=== PATIENT | female | born 1930 ===

== ENCOUNTER 2016-11-03 12:21 | Emergency (ER) | payer OTHER ==
[2016-11-03 12:34] VITALS: TEMP 98.9
[2016-11-03] MEDS ORDERED: Sodium Chloride 0.9% 1,000 ML IV ONE (13:30)
[2016-11-03] MEDS ORDERED: (Novolin R) Insulin Human Regular 100 units/ml vial IV STA (13:31)
[2016-11-03] MEDS ORDERED: (Novolin R) Insulin Human Regular 100 units/ml vial ONE (13:41)
[2016-11-03 14:10] VITALS: RESP 16; O2SAT 98
--- NOTE | 2016-11-03 14:13 | C.PDOC ---
History Of Present Illness 85 y/o female presents to ED sent by Dr. Pineda for evaluation on elevated blood sugar and complaints of Polyuria and Polydipsia. Just picked up a new glucose monitor machine earlier to day but has not used yet. Patient states being in poor compliance with her medication of 1000mg BID- taking 1000 mg QAM only, believing "a thousand" of something is too much to take twice a day. No other complaints at this time. Time Seen by Provider: 11/03/16 13:26 Chief Complaint (Nursing): High Blood Sugar History Per: Patient History/Exam Limitations: no limitations Onset/Duration Of Symptoms: Days Current Symptoms Are (Timing): Still Present Past Medical History Reviewed: Historical Data, Nursing Documentation, Vital Signs Vital Signs: Last Vital Signs Temp 98.9 F 11/03/16 12:32 Pulse 86 11/03/16 16:30 Resp 16 11/03/16 16:30 BP 156/80 H 11/03/16 16:30 Pulse Ox 98 11/03/16 16:34 - Medical History PMH: HTN Family History: States: No Known Family Hx - Social History Hx Alcohol Use: No Hx Substance Use: No - Immunization History Hx Tetanus Toxoid Vaccination: No Hx Influenza Vaccination: Yes Hx Pneumococcal Vaccination: Yes Review Of Systems Except As Marked, All Systems Reviewed And Found Negative. Constitutional: Negative for: Fever, Chills Respiratory: Negative for: Shortness of Breath Gastrointestinal: Negative for: Nausea, Vomiting, Diarrhea Genitourinary: Negative for: Dysuria Skin: Negative for: Rash Physical Exam - Physical Exam Appears: Non-toxic, No Acute Distress Skin: Dry, Other (Skin tenting) Head: Atraumatic, Normacephalic Oral Mucosa: Dry Neck: Normal ROM Cardiovascular: Rhythm Regular, No Murmur Respiratory: Normal Breath Sounds, No Rales, No Rhonchi, No Wheezing Gastrointestinal/Abdominal: Soft, No Tenderness, No Guarding, No Rebound Extremity: Normal ROM, Capillary Refill (<2 seconds) Neurological/Psych: Oriented x3, Normal Speech, Normal Motor, Normal Sensation ED Course And Treatment - Laboratory Results Result Diagrams: 11/03/16 14:06 11/03/16 14:47 Lab Interpretation: Abnormal (HGB A1C 14.4 HH) ECG: Interpreted By Me ECG Rhythm: Sinus Rhythm ECG Interpretation: Normal Rate From EC O2 Sat by Pulse Oximetry: 98 (RA) Pulse Ox Interpretation: Normal - Radiology CXR: Interpreted by Me CXR Interpretation: Yes: No Acute Disease Progress Note: tuna sandwich and insulin 70/30. Feels terrific. 1630: d/w Dr. Pineda- ok to d/c home and encouraged to take Metformin 1000 mg BID/AC and f/u in office on Monday- will call for an appt. Reevaluation Time: 16:32 Reassessment Condition: Improved Medical Decision Making Medical Decision Making: poorly controlled DM with exceedingly high HGB A1C and most surprisingly NOT in DKA- poor metformin compliance Educated and will f/u with PMD in 4 days. Disposition Doctor Will See Patient In The: Office Counseled Patient/Family Regarding: Studies Performed, Diagnosis - Disposition Referrals: Leigh Pineda MD [Staff Provider] - Disposition: HOME/ ROUTINE Disposition Time: 16:34 Condition: GOOD Additional Instructions: sarah schulz Metformina 1000 mg DOS veces al gabbie con schulz comida!! Es un dosis muy baja! Mide schulz azucar en la manana antes del desayuno y ANTES de la zurdo. Apuntalo en schulz libro y llevalo al oficina de Dr. Pineda la proxima visita. Sigue con Dra. Pineda [facility] te va llamar para hacer joey. Instructions: Diabetes Mellitus Type 2 in Adults (ED) Print Language: MALAY - Clinical Impression Clinical Impression: Hyperglycemia - Scribe Statement The provider has reviewed the documentation as recorded by the Scribe Provider Attestation: Rachel Tran All medical record entries made by the Scribe were at my direction and personally dictated by me. I have reviewed the chart and agree that the record accurately reflects my personal performance of the history, physical exam, medical decision making, and the department course for this patient. I have also personally directed, reviewed, and agree with the discharge instructions and disposition.
[2016-11-03 14:21] LABS: BASO # 0.1 K/uL (0.0-0.2); BASO % 0.8 % (0.0-2.0); EOS # 0.1 K/uL (0.0-0.7); EOS % 1.5 % (0.0-4.0); HEMATOCRIT 35.8 % (34.0-47.0); LYMPH # 1.8 K/uL (1.0-4.3); MEAN CELL VOLUME 85.9 fL (81.0-99.0); MEAN CORPUSCULAR HEMOGLOBIN 28.4 pg (27.0-31.0); MEAN CORPUSCULAR HGB CONC 33.1 g/dL (33.0-37.0); MEAN PLATELET VOLUME 8.8 fL (7.2-11.7); MONO # 0.5 K/uL (0.0-0.8); MONO % 7.3 % (0.0-10.0); RED CELL DISTRIBUTION WIDTH 14.1 % (11.5-14.5); WHITE BLOOD COUNT 7.3 K/uL (4.8-10.8)
[2016-11-03 15:01] LABS: RBC URINE < 1 /hpf (0-3); URINE BILIRUBIN NEGATIVE (NEGATIVE); URINE BLOOD NEGATIVE (NEGATIVE); URINE COLOR Yellow (YELLOW); URINE GLUCOSE (UA) 3+ mg/dL (Normal); URINE KETONE TRACE mg/dL (NEGATIVE); URINE LEUKOCYTE ESTERASE NEG Leu/uL (Negative); URINE PROTEIN NEGATIVE (NEGATIVE); URINE UROBILINOGEN NORMAL mg/dL (0.2-1.0); WBC URINE < 1 /hpf (0-5)
[2016-11-03 15:05] LABS: CHLORIDE 99 mmol/L (98-107); SODIUM 135 mmol/L (132-148)
[2016-11-03 15:07] LABS: BILIRUBIN,TOTAL 0.7 mg/dL (0.2-1.3); GFR AFRICAN-AMERICAN > 60
[2016-11-03 15:08] LABS: ALB/GLOB RATIO 0.9 (1.0-2.1); ALKALINE PHOSPHATASE 111 U/L (38-126); ALT/SGPT 18 U/L (9-52); AST/SGOT 21 U/L (14-36); BLOOD UREA NITROGEN 14 mg/dL (7-17); CARBON DIOXIDE 22 mmol/L (22-30); GLUCOSE,RANDOM 215 mg/dL (65-105); TOTAL PROTEIN 6.2 g/dL (6.3-8.3)
[2016-11-03] MEDS ORDERED: (Novolin 70/30) NPH/Regular 70/30 Units/ml 10 ml vial SC STA (15:49)
[2016-11-03] MEDS ORDERED: (Novolin 70/30) NPH/Regular 70/30 Units/ml 10 ml vial SC ONE (16:27)
[2016-11-03 16:31] VITALS: BP 156/80; PULSE 86
--- NOTE | 2016-11-03 16:50 | RAD ---
PROCEDURE: CHEST RADIOGRAPH, 1 VIEW HISTORY: SOB COMPARISON: None available. FINDINGS: LUNGS: Clear. PLEURA: No pneumothorax or pleural fluid seen. CARDIOVASCULAR: Mild cardiomegaly- left ventricular enlargement suggested. Order not calcification OSSEOUS STRUCTURES: No significant abnormalities. VISUALIZED UPPER ABDOMEN: Normal. OTHER FINDINGS: None. IMPRESSION: No acute pulmonary pathology. 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
--- NOTE | 2016-11-03 19:55 | CARD ---
APPROVED REPORT EKG Measurement Heart [id number] <Conclusion> Normal sinus rhythm Possible Anterior infarct, age undetermined Abnormal ECG
== END 2016-11-03 16:44 | disposition home or self-care (01) ==
LOC: C.ER 12:21
DX: E11.65 Type 2 diabetes mellitus with hyperglycemia (principal)
CPT/HCPCS: 71010; 80053; 81001; 82948; 83036; 83880; 84484; 85025; 87040; 93005; 96360; 96372; 99285; J7040

== ENCOUNTER 2017-05-19 11:28 | Inpatient (IN) | payer MEDICARE, OTHER ==
[2017-05-19 12:20] LABS: SQUAMOUS EPITHIAL 6 /hpf (0-5); URINE BILIRUBIN NEGATIVE (NEGATIVE); URINE BLOOD NEGATIVE (NEGATIVE); URINE CLARITY Hazy (Clear); URINE COLOR Amber (YELLOW); URINE GLUCOSE (UA) NORMAL (Normal); URINE LEUKOCYTE ESTERASE TRACE Leu/uL (Negative); URINE NITRATE NEGATIVE (NEGATIVE); URINE PROTEIN 1+ mg/dL (NEGATIVE)
[2017-05-19] MEDS ORDERED: Sodium Chloride 0.9% 1,000 ML IV ONE (12:28)
[2017-05-19] MEDS ORDERED: Iohexol 240 (50 ml) PO STA (12:28)
--- NOTE | 2017-05-19 12:35 | C.PDOC ---
History Of Present Illness 86 year old female with a past medical history of diabetes and hypertension presents to the ED complaining of intermittent left sided abdominal pain x4 weeks. The patient reports that her symptoms began after returning from a trip to [place]. She reports that the pain is exacerbated by food and she has had several episodes of non-bloody diarrhea. Patient also notes decreased urinary output. She states she has not had similar symptoms in the past and has never had a colonoscopy. Denies nausea, vomiting, vaginal bleeding/discharge, fever, chest pain. Of note: Patient reports that she went to be seen by her PMD who could not see her in the office and therefore told her to come into the ED to be evaluated. PMD: Dr. Calderón Time Seen by Provider: 05/19/17 11:50 Chief Complaint (Nursing): Abdominal Pain History Per: Patient History/Exam Limitations: no limitations Onset/Duration Of Symptoms: Other (x4 weeks) Current Symptoms Are (Timing): Still Present Radiation Of Pain To:: None Quality Of Discomfort: "Pain" Associated Symptoms: Diarrhea, Urinary Symptoms (decreased urine ouput). denies : Fever, Nausea, Vomiting, Chest Pain Past Medical History Reviewed: Historical Data, Nursing Documentation, Vital Signs Vital Signs: Last Vital Signs Temp 98.2 F 05/19/17 11:51 Pulse 84 05/19/17 11:51 Resp 18 05/19/17 11:51 BP 141/86 05/19/17 11:51 Pulse Ox 99 05/19/17 17:17 - Medical History PMH: Diabetes, HTN Surgical History: No Surg Hx Family History: States: Unknown Family Hx - Social History Hx Tobacco Use: No Hx Alcohol Use: No Hx Substance Use: No - Immunization History Hx Tetanus Toxoid Vaccination: No Hx Influenza Vaccination: Yes Hx Pneumococcal Vaccination: Yes Review Of Systems Except As Marked, All Systems Reviewed And Found Negative. Constitutional: Negative for: Fever Cardiovascular: Negative for: Chest Pain Gastrointestinal: Positive for: Abdominal Pain (left sided), Diarrhea (several episodes). Negative for: Vomiting Genitourinary: Negative for: Vaginal Discharge, Vaginal Bleeding Physical Exam - Physical Exam Appears: Non-toxic, No Acute Distress Skin: Normal Color, Warm, Dry, No Rash Head: Atraumatic, Normacephalic, No Tenderness Eye(s): bilateral: Normal Inspection, PERRL, EOMI Oral Mucosa: Moist, No Drooling Neck: Normal, Normal ROM, Supple Chest: Symmetrical, No Deformity, Tenderness Cardiovascular: Rhythm Regular, No Edema, No Murmur Respiratory: Normal Breath Sounds, No Rales, No Rhonchi, No Wheezing Gastrointestinal/Abdominal: Bowel Sounds, Soft, Tenderness (left lower quadrant) Extremity: No Tenderness, No Deformity (no deformity to b/l lower extremities), No Swelling (no swelling to b/l lower extremities), Other (trace b/l pitting edema) Neurological/Psych: Oriented x3, Normal Speech, Normal Motor ED Course And Treatment - Laboratory Results Result Diagrams: 05/19/17 12:42 05/19/17 12:42 O2 Sat by Pulse Oximetry: 99 (RA) Pulse Ox Interpretation: Normal - CT Scan/US CT - Abd & Pelvis Other Rad Studies (CT/US): Read By Radiologist, Radiology Report Reviewed CT/US Interpretation: PROCEDURE: CT Abdomen and Pelvis with contrast. HISTORY : abd pain. COMPARISON: None. TECHNIQUE: Contrast dose: 100 mL Omnipaque 350. Radiation dose: Total exam DLP = 462.30 mGy-cm. This CT exam was performed using one or more of the following dose reduction techniques: Automated exposure control, adjustment of the mA and/or kV according to patient size, and/or use of iterative reconstruction technique. FINDINGS: LOWER THORAX : Minimal bilateral pleural effusion and trace right lower lobe compressive atelectasis. Mild pericardial effusion. LIVER: Multiple hepatic masses. Largest mass in left lobe of liver measures 11.7 cm craniocaudal with extensive central necrosis. Multiple additional masses as well as areas confluent heterogeneous low-attenuation. Largest area of low attenuation in the right lobe measures 10.8 cm in greatest dimension. Likely hepatic metastases. No biliary dilatation. Smooth contour. GALLBLADDER AND BILE DUCTS: Cholelithiasis. Calcification along anti dependent wall of the gallbladder may additionally reflect adenomyosis. No mural thickening. PANCREAS: Unremarkable. No gross lesion or ductal dilatation. SPLEEN: Unremarkable. ADRENALS: Unremarkable. No mass. KIDNEYS AND URETERS: Bilateral renal cysts. Right upper pole renal cyst measures 11.4 cm in greatest dimension. Largest left renal cyst is in the upper pole, measuring 2.2 cm. No calculus or hydronephrosis. VASCULATURE: Unremarkable. No aortic aneurysm. BOWEL: There is a sigmoid colonic mass measuring 8.6 cm in greatest dimension. It is strongly suspicious for malignancy. There is mural thickening of the sigmoid colon both proximally and distal to this mass, of uncertain significance. There is extensive retained feces. There is no small bowel obstruction seen. No other abnormal bowel loops are identified. 3.3 cm vaguely ovoid fluid density structure seen cephalad to the sigmoid colon (series 3, image 127 close ) may reflect an ovarian cyst. This does not appear to arise from the bowel. Small hiatal hernia. Possible small gastric diverticulum of the herniated portion of the stomach. APPENDIX: Not identified. PERITONEUM: Unremarkable. No free fluid. No free air. LYMPH NODES: Unremarkable. No enlarged lymph nodes. BLADDER: Decompressed. REPRODUCTIVE: Status post hysterectomy. Possible midline ovarian cyst as above. BONES: No acute fracture. OTHER FINDINGS: None. 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 Bilateral renal cysts with large right upper pole renal cyst. Small bilateral pleural effusion and small pericardial effusion. Small hiatal hernia. Possible small diverticulum of the herniated stomach. Medical Decision Making Medical Decision Makin Initial Impression 86 y/o female presenting with abdominal pain Initial Plan: * CT ABD&PELV PO IV Contrast * EKG * CMP * Lipase * Troponin * CBC * Morphine 2mg IVP * Iohexol 50mL PO * Protonix 40mg IVP * NS 1000ml IV 100 mls/hr * Urinalysis * Reevaluation 1618 PROCEDURE: CT Abdomen and Pelvis with contrast FINDINGS: LOWER THORAX: Minimal bilateral pleural effusion and trace right lower lobe compressive atelectasis. Mild pericardial effusion. LIVER: Multiple hepatic masses. Largest mass in left lobe of liver measures 11.7 cm craniocaudal with extensive central necrosis. Multiple additional masses as well as areas confluent heterogeneous low-attenuation. Largest area of low attenuation in the right lobe measures 10.8 cm in greatest dimension. Likely hepatic metastases. No biliary dilatation. Smooth contour. GALLBLADDER AND BILE DUCTS: Cholelithiasis. Calcification along anti dependent wall of the gallbladder may additionally reflect adenomyosis. No mural thickening. PANCREAS: Unremarkable. No gross lesion or ductal dilatation. SPLEEN: Unremarkable. ADRENALS: Unremarkable. No mass. KIDNEYS AND URETERS: Bilateral renal cysts. Right upper pole renal cyst measures 11.4 cm in greatest dimension. Largest left renal cyst is in the upper pole, measuring 2.2 cm. No calculus or hydronephrosis. VASCULATURE: Unremarkable. No aortic aneurysm. BOWEL: There is a sigmoid colonic mass measuring 8.6 cm in greatest dimension. It is strongly suspicious for malignancy. There is mural thickening of the sigmoid colon both proximally and distal to this mass, of uncertain significance. There is extensive retained feces. There is no small bowel obstruction seen. No other abnormal bowel loops are identified. 3.3 cm vaguely ovoid fluid density structure seen cephalad to the sigmoid colon (series 3, image 127 close ) may reflect an ovarian cyst. This does not appear to arise from the bowel. Small hiatal hernia. Possible small gastric diverticulum of the herniated portion of the stomach. APPENDIX: Not identified. PERITONEUM: Unremarkable. No free fluid. No free air. LYMPH NODES: Unremarkable. No enlarged lymph nodes. BLADDER: Decompressed REPRODUCTIVE: Status post hysterectomy. Possible midline ovarian cyst as above. BONES: No acute fracture. OTHER FINDINGS: None. 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 Bilateral renal cysts with large right upper pole renal cyst. Small bilateral pleural effusion and small pericardial effusion. Small hiatal hernia. Possible small diverticulum of the herniated stomach 1716 Case discussed with hospitalist who will admit the patient to the medical surgical floor for colon mass and abdominal pain. Disposition Discussed With .: Evette Huston Counseled Patient/Family Regarding: Studies Performed, Diagnosis - Disposition Disposition: HOSPITALIZED Disposition Time: 17:22 Condition: FAIR Forms: [facility] (Burkinan) - Clinical Impression Clinical Impression: Abdominal pain, Colonic mass - Scribe Statement The provider has reviewed the documentation as recorded by the Pedro Diaz All medical record entries made by the Pedro were at my direction and personally dictated by me. I have reviewed the chart and agree that the record accurately reflects my personal performance of the history, physical exam, medical decision making, and the department course for this patient. I have also personally directed, reviewed, and agree with the discharge instructions and disposition.
[2017-05-19] MEDS ORDERED: Sodium Chloride 0.9% 1,000 ML ONE (12:47)
[2017-05-19] MEDS ORDERED: Iohexol 240 (50 ml) ONE (12:47)
[2017-05-19 12:51] LABS: BASO # 0.1 K/uL (0.0-0.2); BASO % 0.6 % (0.0-2.0); EOS % 0.2 % (0.0-4.0); LYMPH # 1.5 K/uL (1.0-4.3); LYMPH % 14.9 % (20.0-40.0); MEAN PLATELET VOLUME 7.3 fL (7.2-11.7); MONO # 0.7 K/uL (0.0-0.8); MONO % 7.2 % (0.0-10.0); NEUT # 7.7 K/uL (1.8-7.0); NEUT % 77.1 % (50.0-75.0); RBC 3.5 Mil/uL (3.80-5.20); RED CELL DISTRIBUTION WIDTH 17.1 % (11.5-14.5)
[2017-05-19 12:55] LABS: HEMOGLOBIN 9.5 g/dL (11.0-16.0); MEAN CELL VOLUME 81.9 fL (81.0-99.0)
[2017-05-19 13:07] LABS: ALBUMIN 2.9 g/dL (3.5-5.0); ALT/SGPT 19 U/L (9-52); AST/SGOT 21 U/L (14-36); BLOOD UREA NITROGEN 10 mg/dL (7-17); CALCIUM 7.6 mg/dl (8.6-10.4); GFR AFRICAN-AMERICAN > 60; GFR NON-AFRICAN AMERICAN > 60; LIPASE 20 U/L (23-300)
[2017-05-19 13:13] LABS: ALB/GLOB RATIO 0.8 (1.0-2.1)
[2017-05-19] MEDS ORDERED: Iohexol 350mg/ml 100 ML ONE (13:26)
--- NOTE | 2017-05-19 16:20 | CT ---
PROCEDURE: CT Abdomen and Pelvis with contrast HISTORY: abd pain COMPARISON: None. TECHNIQUE: Contrast dose: 100 mL Omnipaque 350 Radiation dose: Total exam DLP = 462.30 mGy-cm. This CT exam was performed using one or more of the following dose reduction techniques: Automated exposure control, adjustment of the mA and/or kV according to patient size, and/or use of iterative reconstruction technique. FINDINGS: LOWER THORAX: Minimal bilateral pleural effusion and trace right lower lobe compressive atelectasis. Mild pericardial effusion. LIVER: Multiple hepatic masses. Largest mass in left lobe of liver measures 11.7 cm craniocaudal with extensive central necrosis. Multiple additional masses as well as areas confluent heterogeneous low-attenuation. Largest area of low attenuation in the right lobe measures 10.8 cm in greatest dimension. Likely hepatic metastases. No biliary dilatation. Smooth contour. GALLBLADDER AND BILE DUCTS: Cholelithiasis. Calcification along anti dependent wall of the gallbladder may additionally reflect adenomyosis. No mural thickening. PANCREAS: Unremarkable. No gross lesion or ductal dilatation. SPLEEN: Unremarkable. ADRENALS: Unremarkable. No mass. KIDNEYS AND URETERS: Bilateral renal cysts. Right upper pole renal cyst measures 11.4 cm in greatest dimension. Largest left renal cyst is in the upper pole, measuring 2.2 cm. No calculus or hydronephrosis. VASCULATURE: Unremarkable. No aortic aneurysm. BOWEL: There is a sigmoid colonic mass measuring 8.6 cm in greatest dimension. It is strongly suspicious for malignancy. There is mural thickening of the sigmoid colon both proximally and distal to this mass, of uncertain significance. There is extensive retained feces. There is no small bowel obstruction seen. No other abnormal bowel loops are identified. 3.3 cm vaguely ovoid fluid density structure seen cephalad to the sigmoid colon (series 3, image 127 close) may reflect an ovarian cyst. This does not appear to arise from the bowel. Small hiatal hernia. Possible small gastric diverticulum of the herniated portion of the stomach. APPENDIX: Not identified. PERITONEUM: Unremarkable. No free fluid. No free air. LYMPH NODES: Unremarkable. No enlarged lymph nodes. BLADDER: Decompressed REPRODUCTIVE: Status post hysterectomy. Possible midline ovarian cyst as above. BONES: No acute fracture. OTHER FINDINGS: None. 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 Bilateral renal cysts with large right upper pole renal cyst. Small bilateral pleural effusion and small pericardial effusion. Small hiatal hernia. Possible small diverticulum of the herniated stomach.
[2017-05-19] MEDS ORDERED: Morphine 4 MG/ML VIAL IV STA (18:51)
[2017-05-19] MEDS ORDERED: Magnesium Hydroxide Susp 30 ml UD PO ONE (18:54)
--- NOTE | 2017-05-19 19:00 | CP.PCM.HP ---
History of Present Illness - History of Present Illness History of Present Illness: Patient is an 86 year old female with a PMHx of DMII, and HTN who presents with diffusely radiating, 10/10, sharp LLQ abdominal pain x 1 month. Patient states that every time she eats the pain is exacerbated and she has non-bloody diarrhea 30-40 minutes post meals. She denies any relieving factors. Patient has tried Pepto-Bismol and Immodium to relieve her symptoms without success. She admits to 30lbs weight loss in the past 7 months. She denies any fevers, chills, nausea, or vomiting. She does admit to a decrease in her urinary frequency, but denies any hematuria, dyuria, or back pain. ROS POSITIVES: Abdominal pain, NBNB Diarrhea, bloating, dec. urinary frequency NEGATIVES: Fever, chills, chest pain, SOB, nausea, vomiting, constipation, generalized weakness, LH, hematuria, dysuria, PMHx: HTN, DMII PSHx: Total Hysterectomy (30 years ago due to fibroids) Allergies: NKDA Social Hx: Denies tobacco, alcohol, or illicit drug use. Lives alone in [place]. 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 Of note, patient had sister in law who post colonoscopy from perforation. Meds: Labetelol 100 Q12H, Metformin 1000 BID PMD: Dr. Leigh Pineda Present on Admission - Present on Admission Any Indicators Present on Admission: Yes History of Uncontrolled Diabetes: Yes Review of Systems - Review of Systems Review of Systems: As per HPI Past Patient History - Past Social History Smoking Status: Never Smoked - CARDIAC Hx Hypertension: Yes - ENDOCRINE/METABOLIC Hx Diabetes Mellitus Type 2: Yes - PSYCHIATRIC Hx Substance Use: No - SURGICAL HISTORY Hx Surgeries: No - ANESTHESIA Hx Anesthesia: No Hx Anesthesia Reactions: No Meds Allergies/Adverse Reactions: Allergies Allergy/AdvReac Type Severity Reaction Status Date / Time aspirin AdvReac Verified 11/03/16 12:35 Physical Exam - Constitutional Appears: Well, Non-toxic, No Acute Distress - Head Exam Head Exam: ATRAUMATIC, NORMAL INSPECTION, NORMOCEPHALIC - Eye Exam Eye Exam: EOMI, Normal appearance. absent: Scleral icterus - ENT Exam ENT Exam: Mucous Membranes Moist - Neck Exam Neck exam: Positive for: Lymphadenopathy (Right Supraclavicular) - Respiratory Exam Respiratory Exam: Clear to Auscultation Bilateral, NORMAL BREATHING PATTERN. absent: Rales, Rhonchi, Wheezes - Cardiovascular Exam Cardiovascular Exam: RRR, +S1, +S2 - GI/Abdominal Exam GI & Abdominal Exam: Distended, Firm, Hyperactive Bowel Sounds, Tenderness (LLQ) . absent: Bruit, Guarding, Organomegaly, Rebound, Rigid - Extremities Exam Extremities exam: Positive for: pedal edema (+2 B/L) - Back Exam Back exam: absent: CVA tenderness (L), CVA tenderness (R) - Neurological Exam Neurological exam: Alert, Oriented x3 - Psychiatric Exam Psychiatric exam: Normal Affect, Normal Mood - Skin Skin Exam: Dry, Intact, Normal Color, Warm Results - Vital Signs Recent Vital Signs: Last Vital Signs Temp 99.1 F 05/19/17 18:33 Pulse 102 H 05/19/17 18:33 Resp 18 05/19/17 18:33 BP 155/83 H 05/19/17 18:33 Pulse Ox 96 05/19/17 18:33 - Labs Result Diagrams: 05/19/17 12:42 05/19/17 12:42 Labs: Laboratory Results - last 24 hr 05/19/17 05/19/17 05/19/17 12:07 12:42 12:42 WBC 10.0 RBC 3.50 L Hgb 9.5 L D Hct 28.7 L MCV 81.9 D MCH 27.0 MCHC 33.0 RDW 17.1 H Plt Count 444 H D MPV 7.3 Neut % (Auto) 77.1 H Lymph % (Auto) 14.9 L [place] % (Auto) 7.2 Eos % (Auto) 0.2 Baso % (Auto) 0.6 Neut # 7.7 H Lymph # 1.5 [place] # 0.7 Eos # 0.0 Baso # 0.1 Sodium 129 L Potassium 3.4 L Chloride 94 L Carbon Dioxide 29 Anion Gap 10 BUN 10 Creatinine 0.5 L Est GFR ( Amer) > 60 Est GFR (Non-Af Amer) > 60 Random Glucose 219 H Calcium 7.6 L Total Bilirubin 0.8 AST 21 ALT 19 Alkaline Phosphatase 144 H Troponin I < 0.0120 Total Protein 6.5 Albumin 2.9 L Globulin 3.6 Albumin/Globulin Ratio 0.8 L Lipase 20 L Urine Color [place] Urine Clarity Hazy Urine pH 5.0 Ur Specific [place] 1.028 Urine Protein 1+ H Urine Glucose (UA) Normal Urine Ketones Trace Urine Blood Negative Urine Nitrate Negative Urine Bilirubin Negative Urine Urobilinogen 2.0 H Ur Leukocyte Esterase Trace Urine WBC (Auto) 9 H Urine RBC (Auto) 2 Ur Squamous Epith Cells 6 H Hyaline Casts 3-5 H Assessment & Plan - Assessment and Plan (Free Text) Assessment: 86 year old female with a PMHx of DMII, and HTN who presents with diffusely radiating, 10/10, sharp LLQ abdominal pain x 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 Bilateral renal cysts with large right upper pole renal cyst. Small bilateral pleural effusion and small pericardial effusion. Small hiatal hernia. Possible small diverticulum of the herniated stomach Plan: Abdominal Pain: Likely 2/[address] results. --GI Consult - Dr. Foster --Heme/Onc Consult - Dr. Bright --Surgery Consult - Dr. Richard --Liquid Diet --CBC/CMP, Mg, INR, --Stool Occult Blood --CXR --Morphine 2mg IV Q6H PRN --Miralax 17gm PO QAM Hx of Diabetes: ISS Hx of HTN Labetalol 100mg Q12H Hypokalemia 3.4 on Admission - Replaced with 40meQ Proph Heparin Protonix Liquid Diet Patient seen and discussed with Attending Dillon Estrada - PGY-1 - Date & Time Date: 05/19/17 Time: 18:00
[2017-05-19] MEDS ORDERED: Potassium Chloride 20 mEq/15 ml LIQ UD PO ONE (19:28)
[2017-05-19] MEDS ORDERED: Potassium Chloride 20 mEq/15 ml LIQ UD ONE (19:37)
[2017-05-19] MEDS ORDERED: Morphine 4 MG/ML VIAL ONE (19:38)
[2017-05-19] MEDS ORDERED: Magnesium Hydroxide Susp 30 ml UD ONE (19:38)
[2017-05-19] MEDS: (Novolin R) Insulin Human Regular 100 units/ml vial SC SCH (22:05)
[2017-05-19] MEDS: Dextrose 5%/0.9% NS 1,000 ML IV SCH (22:06)
[2017-05-20 07:19] LABS: BASO # 0.1 K/uL (0.0-0.2); BASO % 0.7 % (0.0-2.0); EOS % 0.6 % (0.0-4.0); HEMOGLOBIN 8.8 g/dL (11.0-16.0); LYMPH # 1.8 K/uL (1.0-4.3); LYMPH % 20.7 % (20.0-40.0); MEAN CELL VOLUME 82.7 fL (81.0-99.0); MEAN CORPUSCULAR HEMOGLOBIN 27.8 pg (27.0-31.0); MEAN CORPUSCULAR HGB CONC 33.6 g/dL (33.0-37.0); MONO # 0.8 K/uL (0.0-0.8); MONO % 9.1 % (0.0-10.0); NEUT % 68.9 % (50.0-75.0); RBC 3.18 Mil/uL (3.80-5.20); RED CELL DISTRIBUTION WIDTH 17.3 % (11.5-14.5); WHITE BLOOD COUNT 8.8 K/uL (4.8-10.8)
[2017-05-20 07:31] LABS: INR 1.5
[2017-05-20 07:40] LABS: PROTHROMBIN TIME 17.2 SECONDS (9.7-12.2)
[2017-05-20 07:52] LABS: ALB/GLOB RATIO 0.7 (1.0-2.1); ALBUMIN 2.6 g/dL (3.5-5.0); ALT/SGPT 15 U/L (9-52); AST/SGOT 14 U/L (14-36); BLOOD UREA NITROGEN 7 mg/dL (7-17); CALCIUM 7.5 mg/dl (8.6-10.4); GFR AFRICAN-AMERICAN > 60; GFR NON-AFRICAN AMERICAN > 60; MAGNESIUM 1.5 mg/dL (1.6-2.3)
--- NOTE | 2017-05-20 08:12 | CP.PCM.PN ---
Subjective - Date & Time of Evaluation Date of Evaluation: 05/20/17 Time of Evaluation: 09:45 - Subjective Subjective: Dr. Finney Progress note: Patient seen and examined in room. She says she came the ED for pain and bloating in her stomach. She says she has been having bowel movements but they are small and only liquid. She also reports some weight loss as well. She does currently feel better since admission but is asking for somthing to eat. Objective - Vital Signs/Intake and Output Vital Signs (last 24 hours): Temp Pulse Resp BP Pulse Ox 98.4 F 88 20 125/69 94 L 05/20/17 00:00 05/20/17 00:00 05/20/17 00:00 05/20/17 00:00 05/20/17 00:00 Intake and Output: 05/20/17 05/20/17 06:59 18:59 Intake Total 900 Balance 900 - Medications Medications: Current Medications Heparin Sodium (Porcine) (Heparin) 5,000 units SC Q8 [facility] Last Admin: 05/20/17 06:34 Dose: 5,000 units Dextrose/Sodium Chloride (Dextrose 5%/0.9% Ns 1000 Ml) 1,000 mls @ 100 mls/hr IV .Q10H [facility] Last Admin: 05/19/17 22:06 Dose: 100 mls/hr Insulin Human Regular (Novolin R) 0 unit SC ACHS [facility] PRN Reason: Protocol Last Admin: 05/19/17 22:05 Dose: Not Given Labetalol HCl (Trandate) 100 mg PO Q12H [facility] Last Admin: 05/19/17 22:05 Dose: 100 mg Morphine Sulfate (Morphine) 2 mg IV Q6 PRN PRN Reason: Pain, moderate (4-7) Pantoprazole Sodium (Protonix Ec Tab) 40 mg PO DAILY [facility] Polyethylene Glycol (Miralax) 17 gm PO QAM [facility] - Labs Labs: 05/20/17 07:13 05/20/17 07:13 PT 17.2 SECONDS (9.7-12.2) H 05/20/17 07:13 INR 1.5 05/20/17 07:13 - Constitutional Appears: Non-toxic, No Acute Distress - Eye Exam Eye Exam: Normal appearance. absent: Scleral icterus - Respiratory Exam Respiratory Exam: Decreased Breath Sounds, Clear to Ausculation Bilateral. absent: Rales, Rhonchi, Wheezes - Cardiovascular Exam Cardiovascular Exam: REGULAR RHYTHM, RRR, +S1, +S2. absent: Gallop, Rubs - GI/Abdominal Exam GI & Abdominal Exam: Distended, Normal Bowel Sounds. absent: Tenderness - Extremities Exam Extremities Exam: Normal Inspection. absent: Pedal Edema - Back Exam Back Exam: NORMAL INSPECTION - Neurological Exam Neurological Exam: Alert - Psychiatric Exam Psychiatric exam: Normal Affect, Normal Mood - Skin Skin Exam: Normal Color, Warm Assessment and Plan - Assessment and Plan (Free Text) Assessment: Abdominal Pain-Sigmoid mass 05/20: Patient is a 86 year old female with a history of DM and HTN is here with a large colonic mass in the sigmoid colon and also multiple liver lesions suggestive of mets. She is scheduled for a colonoscopy on Monday, have given her MOM twice today and a flat plate x:ray also preformed. She may need more prep for colonoscopy as there is a large amount of stool in the colon as seen on CT scan, continue liquid diet. We highly suspect patient has colon cancer with mets to the liver. She will need biopsy though. Likely 2/[address] results. --GI Consult - Dr. Foster --Heme/Onc Consult - Dr. Bright --Surgery Consult - Dr. Richard --Liquid Diet --CBC/CMP, Mg, INR, --Stool Occult Blood --CXR --Morphine 2mg IV Q6H PRN --Miralax 17gm PO QAM Hx of Diabetes: ISS Hx of HTN Labetalol 100mg Q12H Hypokalemia 3.4 on Admission - Replaced with 40meQ Proph Heparin Protonix Liquid Diet Patient seen and discussed with Attending Dillon Estrada - PGY-1
[2017-05-20] MEDS: (Novolin R) Insulin Human Regular 100 units/ml vial SC SCH ×4 (08:25→21:59)
--- NOTE | 2017-05-20 08:35 | CP.PCM.CON ---
History of Present Illness - History of Present Illness History of Present Illness: Surgery 86 F w pmh of HTN, DM, hysterectomy came with LLQ abd pain and diarrhea. Pain started a few month ago and localized. Pt reports unintentional weight loss around 30 lbs in last few month. Diarrhea is non bloody. Pt never had colonoscopy done in the past. CT of abd showed large 9x4cm sigmoid mass and liver lesions multiple and largest of around 10cm. Denies F/C/N/V/Cp/SOB/ hematemesis/ melena/hematochezia/ thin stool. PMH HTN DM PSH hysterectomy appendectomy Review of Systems - Review of Systems Review of Systems: See HPI Past Patient History - Past Medical History & Family History Past Medical History?: Yes - Past Social History Smoking Status: Never Smoked - CARDIAC Hx Hypertension: Yes - ENDOCRINE/METABOLIC Hx Diabetes Mellitus Type 2: Yes - MUSCULOSKELETAL/RHEUMATOLOGICAL Hx Falls: No - PSYCHIATRIC Hx Substance Use: No - SURGICAL HISTORY Hx Surgeries: No - ANESTHESIA Hx Anesthesia: No Hx Anesthesia Reactions: No Meds Allergies/Adverse Reactions: Allergies Allergy/AdvReac Type Severity Reaction Status Date / Time aspirin AdvReac Verified 11/03/16 12:35 - Medications Medications: Current Medications Heparin Sodium (Porcine) (Heparin) 5,000 units SC Q8 [facility] Last Admin: 05/20/17 06:34 Dose: 5,000 units Dextrose/Sodium Chloride (Dextrose 5%/0.9% Ns 1000 Ml) 1,000 mls @ 100 mls/hr IV .Q10H [facility] Last Admin: 05/19/17 22:06 Dose: 100 mls/hr Magnesium Sulfate/Dextrose (Magnesium Sulfate 1 Gm/100 Ml D5w) 1 gm in 100 mls @ 100 mls/hr IVPB Q1H [facility] Stop: 05/20/17 10:59 Insulin Human Regular (Novolin R) 0 unit SC ACHS [facility] PRN Reason: Protocol Last Admin: 05/19/17 22:05 Dose: Not Given Labetalol HCl (Trandate) 100 mg PO Q12H [facility] Last Admin: 05/19/17 22:05 Dose: 100 mg Morphine Sulfate (Morphine) 2 mg IV Q6 PRN PRN Reason: Pain, moderate (4-7) Pantoprazole Sodium (Protonix Ec Tab) 40 mg PO DAILY [facility] Polyethylene Glycol (Miralax) 17 gm PO QAM [facility] Physical Exam - Constitutional Appears: No Acute Distress - Head Exam Head Exam: ATRAUMATIC, NORMAL INSPECTION, NORMOCEPHALIC - Eye Exam Eye Exam: EOMI, Normal appearance, PERRL Pupil Exam: NORMAL ACCOMODATION, PERRL - ENT Exam ENT Exam: Mucous Membranes Moist, Normal Exam - Neck Exam Neck exam: Positive for: Normal Inspection - Respiratory Exam Respiratory Exam: Clear to Auscultation Bilateral, NORMAL BREATHING PATTERN - Cardiovascular Exam Cardiovascular Exam: REGULAR RHYTHM - GI/Abdominal Exam GI & Abdominal Exam: Distended, Normal Bowel Sounds, Soft, Tenderness. absent: Firm, Guarding, Hernia, Mass, Rigid Additional comments: LLQ TTP - Rectal Exam Rectal Exam: Hemorrhoids. absent: Black Stool, Bloody Stool, Fecal Impaction Additional comments: Soft brown stool in the vault. No blood. Normal sphincter tone. mass palpable adjacent to the rectum indirectly. - Exam Exam: NORMAL INSPECTION - Extremities Exam Extremities exam: Positive for: normal inspection - Back Exam Back exam: NORMAL INSPECTION - Neurological Exam Neurological exam: Alert, CN II-XII Intact, Normal Gait, Oriented x3, Reflexes Normal - Psychiatric Exam Psychiatric exam: Normal Affect, Normal Mood - Skin Skin Exam: Dry, Intact, Normal Color, Warm Results - Vital Signs Recent Vital Signs: Last Vital Signs Temp 98.4 F 05/20/17 00:00 Pulse 88 05/20/17 00:00 Resp 20 05/20/17 00:00 BP 125/69 05/20/17 00:00 Pulse Ox 94 L 05/20/17 00:00 - Labs Result Diagrams: 05/20/17 07:13 05/20/17 07:13 Labs: Laboratory Results - last 24 hr 05/19/17 05/19/17 05/19/17 12:07 12:42 12:42 WBC 10.0 RBC 3.50 L Hgb 9.5 L D Hct 28.7 L MCV 81.9 D MCH 27.0 MCHC 33.0 RDW 17.1 H Plt Count 444 H D MPV 7.3 Neut % (Auto) 77.1 H Lymph % (Auto) 14.9 L [place] % (Auto) 7.2 Eos % (Auto) 0.2 Baso % (Auto) 0.6 Neut # 7.7 H Lymph # 1.5 [place] # 0.7 Eos # 0.0 Baso # 0.1 PT INR Sodium 129 L Potassium 3.4 L Chloride 94 L Carbon Dioxide 29 Anion Gap 10 BUN 10 Creatinine 0.5 L Est GFR ( Amer) > 60 Est GFR (Non-Af Amer) > 60 POC Glucose (mg/dL) Random Glucose 219 H Calcium 7.6 L Magnesium Total Bilirubin 0.8 AST 21 ALT 19 Alkaline Phosphatase 144 H Troponin I < 0.0120 Total Protein 6.5 Albumin 2.9 L Globulin 3.6 Albumin/Globulin Ratio 0.8 L Lipase 20 L Carcinoembryonic Ag Urine Color Olivia Urine Clarity Hazy Urine pH 5.0 Ur Specific Frakes 1.028 Urine Protein 1+ H Urine Glucose (UA) Normal Urine Ketones Trace Urine Blood Negative Urine Nitrate Negative Urine Bilirubin Negative Urine Urobilinogen 2.0 H Ur Leukocyte Esterase Trace Urine WBC (Auto) 9 H Urine RBC (Auto) 2 Ur Squamous Epith Cells 6 H Hyaline Casts 3-5 H 05/19/17 05/20/17 05/20/17 21:02 07:13 07:13 WBC 8.8 RBC 3.18 L Hgb 8.8 L Hct 26.3 L MCV 82.7 MCH 27.8 MCHC 33.6 RDW 17.3 H Plt Count 397 MPV 7.0 L Neut % (Auto) 68.9 Lymph % (Auto) 20.7 [place] % (Auto) 9.1 Eos % (Auto) 0.6 Baso % (Auto) 0.7 Neut # 6.0 Lymph # 1.8 [place] # 0.8 Eos # 0.0 Baso # 0.1 PT INR Sodium 133 Potassium 4.8 Chloride 98 Carbon Dioxide 29 Anion Gap 10 BUN 7 Creatinine 0.6 L Est GFR ( Amer) > 60 Est GFR (Non-Af Amer) > 60 POC Glucose (mg/dL) 241 H Random Glucose 247 H Calcium 7.5 L Magnesium 1.5 L Total Bilirubin 0.5 AST 14 D ALT 15 Alkaline Phosphatase 127 H Troponin I Total Protein 6.4 Albumin 2.6 L Globulin 3.8 Albumin/Globulin Ratio 0.7 L Lipase Carcinoembryonic Ag 11.6 H Urine Color Urine Clarity Urine pH Ur Specific [place] Urine Protein Urine Glucose (UA) Urine Ketones Urine Blood Urine Nitrate Urine Bilirubin Urine Urobilinogen Ur Leukocyte Esterase Urine WBC (Auto) Urine RBC (Auto) Ur Squamous Epith Cells Hyaline Casts 05/20/17 05/20/17 07:13 07:15 WBC RBC Hgb Hct MCV MCH MCHC RDW Plt Count MPV Neut % (Auto) Lymph % (Auto) [place] % (Auto) Eos % (Auto) Baso % (Auto) Neut # Lymph # [place] # Eos # Baso # PT 17.2 H INR 1.5 Sodium Potassium Chloride Carbon Dioxide Anion Gap BUN Creatinine Est GFR ( Amer) Est GFR (Non-Af Amer) POC Glucose (mg/dL) 204 H Random Glucose Calcium Magnesium Total Bilirubin AST ALT Alkaline Phosphatase Troponin I Total Protein Albumin Globulin Albumin/Globulin Ratio Lipase Carcinoembryonic Ag Urine Color Urine Clarity Urine pH Ur Specific [place] Urine Protein Urine Glucose (UA) Urine Ketones Urine Blood Urine Nitrate Urine Bilirubin Urine Urobilinogen Ur Leukocyte Esterase Urine WBC (Auto) Urine RBC (Auto) Ur Squamous Epith Cells Hyaline Casts Assessment & Plan - Assessment and Plan (Free Text) Assessment: Colon mass: no signs of obstruction -GI on board -Will need colonoscopy and biopsy prior to planning surgery -Pain control -Monitor for obstructive symptoms. -Medical management -We will continue to follow. BENNIE Richard
[2017-05-20] MEDS: Dextrose 5%/0.9% NS 1,000 ML IV SCH ×2 (08:37→18:30)
[2017-05-20] MEDS ORDERED: Phytonadione 10 mg/ml Inj (Adult) SC STA (08:51)
[2017-05-20] MEDS: Magnesium Sulfate 1 gm in D5W 1 GM/100 ML BAG IVPB SCH ×2 (09:45→09:46)
[2017-05-20] MEDS: POLYETHYLENE GLYCOL 3350 17 GM/Dose PACKET PO SCH (09:47)
[2017-05-20] MEDS: Pantoprazole 40 mg EC Tab PO SCH (10:40)
[2017-05-20] MEDS: Magnesium Hydroxide Susp 30 ml UD PO SCH ×2 (11:06→17:53)
--- NOTE | 2017-05-20 13:05 | CON ---
DATE: 05/20/2017 LOCATION: 351, bed B. Karla was called for GI consultation by the admitting medical team, orders were given yesterday by myself. The patient is seen and fully examined on 05/20/2017. The entire chart is reviewed, including but not limited to the most recent lab and radiology study results, current and the previous medication lists, current and the previous medical events, and allergy to medication list as well as all the available current and previous medical records. Case discussed with the staff at length. HISTORY OF PRESENT ILLNESS: This is an 86-year-old female who was admitted to hospital with a main complaint of left-sided abdominal pain, profuse diarrhea recently within the last 4 to 5 days with loss of appetite with less urine output recently. It has to be mentioned that the patient was advised before by Dr. Garrett Yepez at [facility] in [place] to have colonoscopy several times, as per her statement and she refused, she never had colonoscopy before. 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 PAST MEDICAL HISTORY: Including mainly, but not limited to hypertension, diabetes mellitus. The patient denied any chest pain, significant shortness of breath, chills, fever or active bleeding, but mild nausea with dyspepsia. No vomiting recently. ALLERGY TO MEDICATION: ASPIRIN. CURRENT MEDICATIONS: Medication lists were reviewed. FAMILY HISTORY: Noncontributory. SOCIAL HISTORY: Denied any recent history of cigarette smoking or alcohol intake. LABORATORY DATA: Most recent lab results done today showed drop of hemoglobin to 8.8 with hematocrit 26.3, but normal platelet count with PT of 17.2 and normal SMA-7, but low creatinine of 0.6 with increased blood glucose level to 204 with low calcium 5.7, low magnesium 1.5 with increased alkaline phosphatase 127 of with low albumin 2.6. CEA level ordered by myself with results of 11.6. The patient had also abdominal and pelvic CAT scan, report seems indicative of mainly sigmoid colon mass/lesion with extensive hepatic metastatic lesion with small bilateral pleural effusion as well as hiatus hernia with possible small diverticulum of the stomach. PHYSICAL EXAMINATION: GENERAL: An 86-year-old female appeared to be awake, alert, oriented with complaint of intermittent period of left-sided and mid epigastric abdominal pain. VITAL SIGNS: Afebrile with pulse of 90, respiratory rate 20 to 22, blood pressure 130/66. HEENT: Showed pale, dry oral mucous membrane. Nonicteric sclerae. LUNGS: Few scattered crepitation, decreased air entry at bases. HEART: Positive S1 and S2. ABDOMEN: Soft with mild generalized tenderness, mainly in the mid epigastric and left lower quadrant area. No mass or organomegaly. No rebound, tenderness, or guarding could be appreciated. RECTAL: The patient refused. EXTREMITIES: Evidence of osteoarthritis. No clubbing or cyanosis. NEUROLOGIC: No reported new neurological deficits, sensory or motor. No focal deficits reported recently. Peripheral pulses are present bilaterally. IMPRESSION: 1. Abnormal CAT scan of the abdomen and pelvis with sigmoid colon mass/lesion highly suggestive of possible cancer of the colon keeping in mind the mild elevated carcinoembryonic antigen level and possible metastatic lesion to the liver. 2. Diarrhea was most likely postobstructive syndrome secondary to above. 3. Evidence of cholelithiasis by CAT scan as reported in the official report. 4. Known history of diabetes mellitus, hypertension. 5. Anemia most likely secondary to above. SUGGESTIONS: 1. Agree with your plan. 2. The patient to be scheduled for colonoscopy after adequate preparation. 3. Surgical consultation. 4. Correct underlying coagulopathy. 5. 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 6. Oncology/Hematology consult. 7. Further recommendation to follow. Thank you for letting me participate in your patient's case management. Sp Leblanc MD
--- NOTE | 2017-05-20 14:19 | CARD ---
APPROVED REPORT EXAM: Two-dimensional and M-mode echocardiogram with Doppler and color Doppler. Other Information Quality : GoodRhythm : INDICATION PERICARDIAL EFFUSION RISK FACTORS Hypertension Hyperlipidemia Diabetes M-Mode DIMENSIONS RVDd1.79 (2.1-3.2cm)Left Atrium (MM)4.13 (2.5-4.0cm) IVSd1.20 (0.7-1.1cm)Aortic Root2.95 (2.2-3.7cm) LVDd5.11 (4.0-5.6cm)Aortic Cusp Exc.1.51 (1.5-2.0cm) PWd1.07 (0.7-1.1cm)FS (%) 33 % LVDs3.42 (2.0-3.8cm)LVEF (%)61 (>50%) Mitral Valve MV E Oqlwjcyx16.1cm/sMV A Dngdklic14.6cm/sE/A ratio0.9 TDI E/Lateral E'0.0E/Medial E'0.0 Tricuspid Valve TR Peak [id number]/sRAP [id number] Peak Gr.22mmHg [id number] LEFT VENTRICLE There is borderline concentric left ventricular hypertrophy. The left ventricular systolic function is normal. The left ventricular ejection fraction is within the normal range. There is normal LV segmental wall motion. Transmitral Doppler flow pattern is Grade I-abnormal relaxation pattern. RIGHT VENTRICLE The right ventricle is normal size. The right ventricular systolic function is normal. ATRIA The left atrium is borderline dilated. The right atrium size is normal. AORTIC VALVE The aortic valve is mildly sclerotic with normal systolic excursion. No aortic regurgitation is present. MITRAL VALVE The mitral valve is normal in structure. Mitral regurgitation is trace to mild. TRICUSPID VALVE The tricuspid valve is normal in structure. There is mild tricuspid regurgitation. Right ventricular systolic pressure is estimated at less than 30 mmHg. PULMONIC VALVE The pulmonic valve is not well visualized. GREAT VESSELS The aortic root is normal in size. There is moderate atherosclerotic plaque in the ascending aorta. The IVC is normal in size and collapses >50% with inspiration. PERICARDIAL EFFUSION There is a small pericardial effusion. No echo evidence of tamponade. <Conclusion> There is borderline concentric left ventricular hypertrophy. The left ventricular systolic function is normal. Diastolic dysfunction Grade I-abnormal relaxation pattern. Trace to mild mitral regurgitation. There is mild tricuspid regurgitation. Right ventricular systolic pressure is estimated at less than 30 mmHg. There is moderate atherosclerotic plaque in the ascending aorta. There is a small pericardial effusion. No echocardiographic evidence of tamponade.
--- NOTE | 2017-05-20 15:23 | CP.PCM.CON ---
History of Present Illness - History of Present Illness History of Present Illness: patient seen/examined. full consult to follow. Past Patient History - Past Medical History & Family History Past Medical History?: Yes - Past Social History Smoking Status: Never Smoked - CARDIAC Hx Hypertension: Yes - ENDOCRINE/METABOLIC Hx Diabetes Mellitus Type 2: Yes - MUSCULOSKELETAL/RHEUMATOLOGICAL Hx Falls: No - PSYCHIATRIC Hx Substance Use: No - SURGICAL HISTORY Hx Surgeries: No - ANESTHESIA Hx Anesthesia: No Hx Anesthesia Reactions: No Meds Allergies/Adverse Reactions: Allergies Allergy/AdvReac Type Severity Reaction Status Date / Time aspirin AdvReac Verified 11/03/16 12:35 - Medications Medications: Current Medications Heparin Sodium (Porcine) (Heparin) 5,000 units SC Q8 [facility] Last Admin: 05/20/17 14:43 Dose: 5,000 units Dextrose/Sodium Chloride (Dextrose 5%/0.9% Ns 1000 Ml) 1,000 mls @ 100 mls/hr IV .Q10H [facility] Last Admin: 05/20/17 08:37 Dose: 100 mls/hr Insulin Human Regular (Novolin R) 0 unit SC ACHS [facility] PRN Reason: Protocol Last Admin: 05/20/17 12:28 Dose: 4 unit Labetalol HCl (Trandate) 100 mg PO Q12H [facility] Last Admin: 05/20/17 09:47 Dose: 100 mg Magnesium Hydroxide (Milk Of Magnesia) 30 ml PO BID [facility] Stop: 05/21/17 10:31 Last Admin: 05/20/17 11:06 Dose: 30 ml Morphine Sulfate (Morphine) 2 mg IV Q6 PRN PRN Reason: Pain, moderate (4-7) Ondansetron HCl (Zofran Inj) 4 mg IVP Q6 [facility] Stop: 05/24/17 00:01 Pantoprazole Sodium (Protonix Ec Tab) 40 mg PO DAILY [facility] Last Admin: 05/20/17 10:40 Dose: 40 mg Polyethylene Glycol (Miralax) 17 gm PO QAM [facility] Last Admin: 05/20/17 09:47 Dose: 17 gm Results - Vital Signs Recent Vital Signs: Last Vital Signs Temp 98.0 F 05/20/17 15:00 Pulse 89 05/20/17 15:00 Resp 18 05/20/17 15:00 BP 155/85 H 05/20/17 15:00 Pulse Ox 95 05/20/17 08:59 - Labs Result Diagrams: 05/20/17 07:13 05/20/17 07:13 Labs: Laboratory Results - last 24 hr 05/19/17 05/20/17 05/20/17 21:02 07:13 07:13 WBC 8.8 RBC 3.18 L Hgb 8.8 L Hct 26.3 L MCV 82.7 MCH 27.8 MCHC 33.6 RDW 17.3 H Plt Count 397 MPV 7.0 L Neut % (Auto) 68.9 Lymph % (Auto) 20.7 [place] % (Auto) 9.1 Eos % (Auto) 0.6 Baso % (Auto) 0.7 Neut # 6.0 Lymph # 1.8 [place] # 0.8 Eos # 0.0 Baso # 0.1 PT INR Sodium 133 Potassium 4.8 Chloride 98 Carbon Dioxide 29 Anion Gap 10 BUN 7 Creatinine 0.6 L Est GFR ( Amer) > 60 Est GFR (Non-Af Amer) > 60 POC Glucose (mg/dL) 241 H Random Glucose 247 H Calcium 7.5 L Magnesium 1.5 L Total Bilirubin 0.5 AST 14 D ALT 15 Alkaline Phosphatase 127 H Total Protein 6.4 Albumin 2.6 L Globulin 3.8 Albumin/Globulin Ratio 0.7 L Carcinoembryonic Ag 11.6 H Blood Type Antibody Screen 05/20/17 05/20/17 05/20/17 07:13 07:13 07:15 WBC RBC Hgb Hct MCV MCH MCHC RDW Plt Count MPV Neut % (Auto) Lymph % (Auto) [place] % (Auto) Eos % (Auto) Baso % (Auto) Neut # Lymph # [place] # Eos # Baso # PT 17.2 H INR 1.5 Sodium Potassium Chloride Carbon Dioxide Anion Gap BUN Creatinine Est GFR ( Amer) Est GFR (Non-Af Amer) POC Glucose (mg/dL) 204 H Random Glucose Calcium Magnesium Total Bilirubin AST ALT Alkaline Phosphatase Total Protein Albumin Globulin Albumin/Globulin Ratio Carcinoembryonic Ag Blood Type O POSITIVE Antibody Screen Negative 05/20/17 11:19 WBC RBC Hgb Hct MCV MCH MCHC RDW Plt Count MPV Neut % (Auto) Lymph % (Auto) [place] % (Auto) Eos % (Auto) Baso % (Auto) Neut # Lymph # [place] # Eos # Baso # PT INR Sodium Potassium Chloride Carbon Dioxide Anion Gap BUN Creatinine Est GFR ( Amer) Est GFR (Non-Af Amer) POC Glucose (mg/dL) 301 H Random Glucose Calcium Magnesium Total Bilirubin AST ALT Alkaline Phosphatase Total Protein Albumin Globulin Albumin/Globulin Ratio Carcinoembryonic Ag Blood Type Antibody Screen
--- NOTE | 2017-05-20 15:23 | CP.PCM.CON ---
History of Present Illness - History of Present Illness History of Present Illness: i was asked to evaluate patient due to pericardial effusion. Patient is an 86 year old female with PMH HTn DM who presents with abdominal pain and distension. She was found to have a sigmoid mass. She is scheduled for colonoscopy. She was found to have a small pericardial effusion by echocardiogram. Consultation was requested. She denies chest pain or dyspnea. Review of Systems - Constitutional Constitutional: absent: As Per HPI, Anorexia, Chills, Daytime Sleepiness, Excessive Sweating, Fatigue, Fever, Frequent Falls, Headache, Increased Appetite , Lethargy, Malaise, Night Sweats, Snoring, Sleep Apnea, Weight Gain, Weight Loss, Weakness, Other - EENT Eyes: absent: As Per HPI, Blind Spots, Blurred Vision, Change in Vision, Decreased Night Vision, Diplopia, Discharge, Dry Eye, Exophthalmos, Floaters, Irritation, Itchy Eyes, Loss of Peripheral Vision, Pain, Photophobia, Requires Corrective Lenses, Sees Flashes, Spots in Vision, Tunnel Vision, Other Visual Disturbances, Loss of Vision, Other Ears: absent: As Per HPI, Decreased Hearing, Ear Discharge, Ear Pain, Tinnitus, Abnormal Hearing, Disequilibrium, Dizziness, Other Nose/Mouth/Throat: absent: As Per HPI, Epistaxis, Nasal Congestion, Nasal Discharge, Nasal Obstruction, Nasal Trauma, Nose Pain, Post Nasal Drip, Sinus Pain, Sinus Pressure, Bleeding Gums, Change in Voice, Dental Pain, Dry Mouth, Dysphagia, Halitosis, Hoarsness, Lip Swelling, Mouth Lesions, Mouth Pain, Odynophagia, Sore Throat, Throat Swelling, Tongue Swelling, Facial Pain, Neck Pain, Neck Mass, Other - Cardiovascular Cardiovascular: absent: As Per HPI, Acrocyanosis, Chest Pain, Chest Pain at Rest , Chest Pain with Activity, Claudication, Diaphoresis, Dyspnea, Dyspnea on Exertion, Edema, Irregular Heart Rhythm, Pain Radiating to Arm/Neck/Jaw, Leg Edema, Leg Ulcers, Lightheadedness, Orthopnea, Palpitations, Paroxysmal Nocturnal Dyspnea, Pedal Edema, Radiating Pain, Rapid Heart Rate, Slow Heart Rate, Syncope, Other - Respiratory Respiratory: absent: As Per HPI, Cough, Dyspnea, Hemoptysis, Dyspnea on Exertion , Wheezing, Snoring, Stridor, Pain on Inspiration, Chest Congestion, Excessive Mucous Production, Change in Mucous Color, Pain with Coughing, Other - Gastrointestinal Gastrointestinal: Abdominal Pain - Genitourinary Genitourinary: absent: As Per HPI, Change in Urinary Stream, Difficulty Urinating, Dysuria, Flank Pain, Hematuria, Pyuria, Nocturia, Urinary Incontinence, Urinary Frequency, Urinary Hesitance, Urinary Urgency, Voiding Freq/Small Amts, Freq UTI, Hx Renal/Bladder Calculi, Hx /Renal Surgery, Bladder Distension, Other - Musculoskeletal Musculoskeletal: absent: As Per HPI, Abnormal Gait, Arthralgias, Atrophy, Back Pain, Deformity, Joint Swelling, Limited Range of Motion, Loss of Height, Muscle Cramps, Muscle Weakness, Myalgias, Neck Pain, Numbness, Radiating Pain into Limb, Stiffness, Tingling, Other - Integumentary Integumentary: absent: As Per HPI, Acne, Alopecia, Bleeding Lesions, Change in Hair, Change in Nails, Change in Pigmentation, Changing Lesions, Dry Skin, Erythema, Furuncle, Hirsutism, Lesions, New Lesions, Non-Healing Lesions, Photosensitivity, Pruritus, Rash, Skin Pain, Skin Ulcer, Sores, Striae, Swelling , Unusual Bruising, Wounds, Jaundice, Other - Neurological Neurological: absent: As Per HPI, Abnormal Gait, Abnormal Hearing, Abnormal Movements, Abnormal Speech, Behavioral Changes, Burning Sensations, Confusion, Convulsions, Disequilibrium, Dizziness, Numbness, Focal Weakness, Frequent Falls , Headaches, Lack of Coordination, Loss of Vision, Memory Loss, Paresthesias, Radicular Pain, Restless Legs, Sensory Deficit, Syncope, Tingling, Tremor, Vertigo, Weakness, Other Visual Disturbances, Other - Psychiatric Psychiatric: absent: As Per HPI, Abnormal Sleep Pattern, Anhedonia, Anxiety, Auditory Hallucinations, Behavioral Changes, Change in Appetite, Change in Libido, Confusion, Depression, Difficulty Concentrating, Hallucinations, Homicidal Ideation, Hopelessness, Irritability, Memory Loss, Mood Swings, Panic Attacks, Paranoia, Suicidal Ideation, Visual Hallucinations, Tactile Hallucinations, Other - Endocrine Endocrine: absent: As Per HPI, Change in Body Appearance, Change in Libido, Cold Intolorance, Deepening of Voice, Excessive Sweating, Fatigue, Flushing, Heat Intolorance, Increase in Ring/Shoe/Hat Size, Palpitations, Polydipsia, Polyphagia, Polyuria, Other - Hematologic/Lymphatic Hematologic: absent: As Per HPI, Easy Bleeding, Easy Bruising, Lymphadenopathy, Other Past Patient History - Past Medical History & Family History Past Medical History?: Yes - Past Social History Smoking Status: Never Smoked - CARDIAC Hx Hypertension: Yes - ENDOCRINE/METABOLIC Hx Diabetes Mellitus Type 2: Yes - MUSCULOSKELETAL/RHEUMATOLOGICAL Hx Falls: No - PSYCHIATRIC Hx Substance Use: No - SURGICAL HISTORY Hx Surgeries: No - ANESTHESIA Hx Anesthesia: No Hx Anesthesia Reactions: No Meds Allergies/Adverse Reactions: Allergies Allergy/AdvReac Type Severity Reaction Status Date / Time aspirin AdvReac Verified 11/03/16 12:35 - Medications Medications: Current Medications Heparin Sodium (Porcine) (Heparin) 5,000 units SC Q8 [facility] Last Admin: 05/20/17 14:43 Dose: 5,000 units Dextrose/Sodium Chloride (Dextrose 5%/0.9% Ns 1000 Ml) 1,000 mls @ 100 mls/hr IV .Q10H [facility] Last Admin: 05/20/17 08:37 Dose: 100 mls/hr Insulin Human Regular (Novolin R) 0 unit SC ACHS [facility] PRN Reason: Protocol Last Admin: 05/20/17 12:28 Dose: 4 unit Labetalol HCl (Trandate) 100 mg PO Q12H [facility] Last Admin: 05/20/17 09:47 Dose: 100 mg Magnesium Hydroxide (Milk Of Magnesia) 30 ml PO BID [facility] Stop: 05/21/17 10:31 Last Admin: 05/20/17 11:06 Dose: 30 ml Morphine Sulfate (Morphine) 2 mg IV Q6 PRN PRN Reason: Pain, moderate (4-7) Ondansetron HCl (Zofran Inj) 4 mg IVP Q6 [facility] Stop: 05/24/17 00:01 Pantoprazole Sodium (Protonix Ec Tab) 40 mg PO DAILY [facility] Last Admin: 05/20/17 10:40 Dose: 40 mg Polyethylene Glycol (Miralax) 17 gm PO QAM [facility] Last Admin: 05/20/17 09:47 Dose: 17 gm Physical Exam - Constitutional Appears: Non-toxic - Head Exam Head Exam: NORMAL INSPECTION - Eye Exam Eye Exam: Normal appearance - ENT Exam ENT Exam: Mucous Membranes Moist - Neck Exam Neck exam: Positive for: Full Rom - Respiratory Exam Respiratory Exam: NORMAL BREATHING PATTERN - Cardiovascular Exam Cardiovascular Exam: REGULAR RHYTHM - GI/Abdominal Exam GI & Abdominal Exam: Normal Bowel Sounds - Rectal Exam Rectal Exam: Deferred - Extremities Exam Extremities exam: Positive for: full ROM. Negative for: pedal edema - Back Exam Back exam: NORMAL INSPECTION - Neurological Exam Neurological exam: Alert, Oriented x3 - Psychiatric Exam Psychiatric exam: Normal Affect - Skin Skin Exam: Normal Color Results - Vital Signs Recent Vital Signs: Last Vital Signs Temp 98.0 F 05/20/17 15:00 Pulse 89 05/20/17 15:00 Resp 18 05/20/17 15:00 BP 155/85 H 05/20/17 15:00 Pulse Ox 95 05/20/17 08:59 - Labs Result Diagrams: 05/21/17 08:04 05/21/17 08:04 Labs: Laboratory Results - last 24 hr 05/19/17 05/20/17 05/20/17 21:02 07:13 07:13 WBC 8.8 RBC 3.18 L Hgb 8.8 L Hct 26.3 L MCV 82.7 MCH 27.8 MCHC 33.6 RDW 17.3 H Plt Count 397 MPV 7.0 L Neut % (Auto) 68.9 Lymph % (Auto) 20.7 [place] % (Auto) 9.1 Eos % (Auto) 0.6 Baso % (Auto) 0.7 Neut # 6.0 Lymph # 1.8 [place] # 0.8 Eos # 0.0 Baso # 0.1 PT INR Sodium 133 Potassium 4.8 Chloride 98 Carbon Dioxide 29 Anion Gap 10 BUN 7 Creatinine 0.6 L Est GFR ( Amer) > 60 Est GFR (Non-Af Amer) > 60 POC Glucose (mg/dL) 241 H Random Glucose 247 H Calcium 7.5 L Magnesium 1.5 L Total Bilirubin 0.5 AST 14 D ALT 15 Alkaline Phosphatase 127 H Total Protein 6.4 Albumin 2.6 L Globulin 3.8 Albumin/Globulin Ratio 0.7 L Carcinoembryonic Ag 11.6 H Blood Type Antibody Screen 05/20/17 05/20/17 05/20/17 07:13 07:13 07:15 WBC RBC Hgb Hct MCV MCH MCHC RDW Plt Count MPV Neut % (Auto) Lymph % (Auto) [place] % (Auto) Eos % (Auto) Baso % (Auto) Neut # Lymph # [place] # Eos # Baso # PT 17.2 H INR 1.5 Sodium Potassium Chloride Carbon Dioxide Anion Gap BUN Creatinine Est GFR ( Amer) Est GFR (Non-Af Amer) POC Glucose (mg/dL) 204 H Random Glucose Calcium Magnesium Total Bilirubin AST ALT Alkaline Phosphatase Total Protein Albumin Globulin Albumin/Globulin Ratio Carcinoembryonic Ag Blood Type O POSITIVE Antibody Screen Negative 05/20/17 11:19 WBC RBC Hgb Hct MCV MCH MCHC RDW Plt Count MPV Neut % (Auto) Lymph % (Auto) [place] % (Auto) Eos % (Auto) Baso % (Auto) Neut # Lymph # [place] # Eos # Baso # PT INR Sodium Potassium Chloride Carbon Dioxide Anion Gap BUN Creatinine Est GFR ( Amer) Est GFR (Non-Af Amer) POC Glucose (mg/dL) 301 H Random Glucose Calcium Magnesium Total Bilirubin AST ALT Alkaline Phosphatase Total Protein Albumin Globulin Albumin/Globulin Ratio Carcinoembryonic Ag Blood Type Antibody Screen - EKG Data EKG Interpreted by: Myself EKG shows normal: Sinus rhythm Assessment & Plan (1) Pericardial effusion Assessment and Plan: The overall left ventricular function is normal. The effusion is small. There is no evidence of tamponade. medical therapy. no contraindication to the planned colonoscopy Status: Acute
--- NOTE | 2017-05-20 17:34 | CP.PCM.PN ---
Subjective - Date & Time of Evaluation Date of Evaluation: 05/20/17 Time of Evaluation: 10:00 - Subjective Subjective: Seen and examined,lying on bed comfortable Feels better today,Abdomen is less distended s/p Enema last night small amount of semi formed stools. No advance directives As per patient her Niece will make decision for her.I tried to reach her Niece/ no answer Spoke to her Niece in law who was with her at ER yesterday She has a son lives in [place].She states that spoke to her son.she asked me to not to call him Objective - Vital Signs/Intake and Output Vital Signs (last 24 hours): Temp Pulse Resp BP Pulse Ox 98.4 F 90 20 153/76 H 97 05/20/17 15:15 05/20/17 15:15 05/20/17 15:15 05/20/17 15:15 05/20/17 15:15 Intake and Output: 05/20/17 05/20/17 06:59 18:59 Intake Total 900 1625 Balance 900 1625 - Medications Medications: Current Medications Heparin Sodium (Porcine) (Heparin) 5,000 units SC Q8 [facility] Last Admin: 05/20/17 14:43 Dose: 5,000 units Dextrose/Sodium Chloride (Dextrose 5%/0.9% Ns 1000 Ml) 1,000 mls @ 100 mls/hr IV .Q10H [facility] Last Admin: 05/20/17 08:37 Dose: 100 mls/hr Insulin Human Regular (Novolin R) 0 unit SC ACHS [facility] PRN Reason: Protocol Last Admin: 05/20/17 12:28 Dose: 4 unit Labetalol HCl (Trandate) 100 mg PO Q12H [facility] Last Admin: 05/20/17 09:47 Dose: 100 mg Magnesium Hydroxide (Milk Of Magnesia) 30 ml PO BID [facility] Stop: 05/21/17 10:31 Last Admin: 05/20/17 11:06 Dose: 30 ml Morphine Sulfate (Morphine) 2 mg IV Q6 PRN PRN Reason: Pain, moderate (4-7) Ondansetron HCl (Zofran Inj) 4 mg IVP Q6 [facility] Stop: 05/24/17 00:01 Pantoprazole Sodium (Protonix Ec Tab) 40 mg PO DAILY [facility] Last Admin: 05/20/17 10:40 Dose: 40 mg Polyethylene Glycol (Miralax) 17 gm PO QAM [facility] Last Admin: 05/20/17 09:47 Dose: 17 gm - Labs Labs: 05/20/17 07:13 05/20/17 07:13 PT 17.2 SECONDS (9.7-12.2) H 05/20/17 07:13 INR 1.5 05/20/17 07:13 - Constitutional Appears: Non-toxic - Head Exam Head Exam: NORMAL INSPECTION - Eye Exam Eye Exam: Normal appearance - ENT Exam ENT Exam: Mucous Membranes Moist - Neck Exam Neck Exam: Full ROM - Respiratory Exam Respiratory Exam: Clear to Ausculation Bilateral, NORMAL BREATHING PATTERN - Cardiovascular Exam Cardiovascular Exam: REGULAR RHYTHM - GI/Abdominal Exam GI & Abdominal Exam: Distended, Soft, Normal Bowel Sounds. absent: Guarding - Extremities Exam Extremities Exam: Full ROM - Back Exam Back Exam: NORMAL INSPECTION - Neurological Exam Neurological Exam: Awake, Oriented x3 - Psychiatric Exam Psychiatric exam: Normal Mood - Skin Skin Exam: Dry Assessment and Plan - Assessment and Plan (Free Text) Assessment: 86 year old female with history of DMII, and HTN presents to ER for abdominal pain.She was c/o abd distension,weight loss and abdominal pain. She lives alone. She states that her Niece Elke will make decision for her/Has HCP?. She doesn't want to talk about the advance directives at this time.She also asked me to not to talk to her son.Un able leave message to her Niece/memory full Plan: 1. Sigmoid colon mass/Liver lesion likely mets/Weight loss and abdominal pain Possible colon malignancy with mets -CT-Abd/Pelvis on admission showed 8.6 cm sigmoid mass with extensive hepatic metastasis. Bilateral renal cysts with large right upper pole renal cyst. Small bilateral pleural effusion and small pericardial effusion. Small hiatal hernia. Possible small diverticulum of the herniated stomach [facility] consult Dr Foster ,appreciated -colonoscopy and biopsy on Monday Dr Bright oncology consult Surgery consult Dr Richard-appreciated bowel prep for colonosopy/constipation. d/w DR Foster,[facility] [place] tonight,follow his prep recommendation 2.DM-Monitor sugar 3.Hypertension Continue labetolol 4.Anemia-Hemoglobin 8.8 Type and screen and transfusion 5.Pericardial effusion/cardiomegaly Echo report noted,cardiology consult appreciated 6.DVT and GI prophylasix on heparin sq and pepsid liquid diet
[2017-05-20] MEDS ORDERED: Magnesium Hydroxide Susp 30 ml UD PO ONE (20:00)
--- NOTE | 2017-05-20 20:00 | CP.PCM.CON ---
History of Present Illness - History of Present Illness History of Present Illness: 86 year old female with a history of DM, presenting with abdominal pain, found to have a sigmoid mass. The patient notes to progressive abdominal pain, associated with diarrhea and diminished appetite for about 1 month. She denies N/V and abdominal bloating. She has no fevers and chills. A CT of the abdomena and pelvis revealed the colon mass and multiple liver lesions concerning for metastasis. Past medical history: DM Past surgical history: None Family history: Denies hematologic and oncologic problems Social history: Denies tobacco, alcohol, and illicit drug use. Allergies: Aspirin Review of systems: All remaining review of systems including HEENT, cardiovascular, respiratory, gastrointestinal, genitourinary, musculoskeletal, dermatologic, neurologic, and psychiatric are negative unless mentioned in the HPI. Past Patient History - Past Medical History & Family History Past Medical History?: Yes - Past Social History Smoking Status: Never Smoked - CARDIAC Hx Hypertension: Yes - ENDOCRINE/METABOLIC Hx Diabetes Mellitus Type 2: Yes - MUSCULOSKELETAL/RHEUMATOLOGICAL Hx Falls: No - PSYCHIATRIC Hx Substance Use: No - SURGICAL HISTORY Hx Surgeries: No - ANESTHESIA Hx Anesthesia: No Hx Anesthesia Reactions: No Meds Allergies/Adverse Reactions: Allergies Allergy/AdvReac Type Severity Reaction Status Date / Time aspirin AdvReac Verified 11/03/16 12:35 - Medications Medications: Current Medications Heparin Sodium (Porcine) (Heparin) 5,000 units SC Q8 [facility] Last Admin: 05/20/17 14:43 Dose: 5,000 units Dextrose/Sodium Chloride (Dextrose 5%/0.9% Ns 1000 Ml) 1,000 mls @ 100 mls/hr IV .Q10H [facility] Last Admin: 05/20/17 08:37 Dose: 100 mls/hr Insulin Human Regular (Novolin R) 0 unit SC ACHS [facility] PRN Reason: Protocol Last Admin: 05/20/17 16:30 Dose: Not Given Labetalol HCl (Trandate) 100 mg PO Q12H [facility] Last Admin: 05/20/17 09:47 Dose: 100 mg Magnesium Hydroxide (Milk Of Magnesia) 60 ml PO ONCE ONE Stop: 05/20/17 20:01 Morphine Sulfate (Morphine) 2 mg IV Q6 PRN PRN Reason: Pain, moderate (4-7) Last Admin: 05/20/17 18:12 Dose: 2 mg Ondansetron HCl (Zofran Inj) 4 mg IVP Q6 [facility] Stop: 05/24/17 00:01 Pantoprazole Sodium (Protonix Ec Tab) 40 mg PO DAILY [facility] Last Admin: 05/20/17 10:40 Dose: 40 mg Polyethylene Glycol (Miralax) 17 gm PO QAM [facility] Last Admin: 05/20/17 09:47 Dose: 17 gm Physical Exam - Head Exam Head Exam: ATRAUMATIC - Eye Exam Eye Exam: Normal appearance - ENT Exam ENT Exam: Mucous Membranes Dry - Respiratory Exam Respiratory Exam: NORMAL BREATHING PATTERN - Cardiovascular Exam Cardiovascular Exam: +S1, +S2 - GI/Abdominal Exam GI & Abdominal Exam: Normal Bowel Sounds - Extremities Exam Extremities exam: Positive for: normal inspection - Neurological Exam Neurological exam: Oriented x3 - Psychiatric Exam Psychiatric exam: Normal Affect, Normal Mood - Skin Skin Exam: Warm Results - Vital Signs Recent Vital Signs: Last Vital Signs Temp 98.4 F 05/20/17 15:15 Pulse 90 05/20/17 15:15 Resp 20 05/20/17 15:15 BP 153/76 H 05/20/17 15:15 Pulse Ox 97 05/20/17 15:15 - Labs Result Diagrams: 05/20/17 07:13 05/20/17 07:13 Labs: Laboratory Results - last 24 hr 05/19/17 05/20/17 05/20/17 21:02 07:13 07:13 WBC 8.8 RBC 3.18 L Hgb 8.8 L Hct 26.3 L MCV 82.7 MCH 27.8 MCHC 33.6 RDW 17.3 H Plt Count 397 MPV 7.0 L Neut % (Auto) 68.9 Lymph % (Auto) 20.7 [place] % (Auto) 9.1 Eos % (Auto) 0.6 Baso % (Auto) 0.7 Neut # 6.0 Lymph # 1.8 [place] # 0.8 Eos # 0.0 Baso # 0.1 PT INR Sodium 133 Potassium 4.8 Chloride 98 Carbon Dioxide 29 Anion Gap 10 BUN 7 Creatinine 0.6 L Est GFR ( Amer) > 60 Est GFR (Non-Af Amer) > 60 POC Glucose (mg/dL) 241 H Random Glucose 247 H Calcium 7.5 L Magnesium 1.5 L Total Bilirubin 0.5 AST 14 D ALT 15 Alkaline Phosphatase 127 H Total Protein 6.4 Albumin 2.6 L Globulin 3.8 Albumin/Globulin Ratio 0.7 L Carcinoembryonic Ag 11.6 H Blood Type Antibody Screen 05/20/17 05/20/17 05/20/17 07:13 07:13 07:15 WBC RBC Hgb Hct MCV MCH MCHC RDW Plt Count MPV Neut % (Auto) Lymph % (Auto) [place] % (Auto) Eos % (Auto) Baso % (Auto) Neut # Lymph # [place] # Eos # Baso # PT 17.2 H INR 1.5 Sodium Potassium Chloride Carbon Dioxide Anion Gap BUN Creatinine Est GFR ( Amer) Est GFR (Non-Af Amer) POC Glucose (mg/dL) 204 H Random Glucose Calcium Magnesium Total Bilirubin AST ALT Alkaline Phosphatase Total Protein Albumin Globulin Albumin/Globulin Ratio Carcinoembryonic Ag Blood Type O POSITIVE Antibody Screen Negative 05/20/17 05/20/17 11:19 16:56 WBC RBC Hgb Hct MCV MCH MCHC RDW Plt Count MPV Neut % (Auto) Lymph % (Auto) [place] % (Auto) Eos % (Auto) Baso % (Auto) Neut # Lymph # [place] # Eos # Baso # PT INR Sodium Potassium Chloride Carbon Dioxide Anion Gap BUN Creatinine Est GFR ( Amer) Est GFR (Non-Af Amer) POC Glucose (mg/dL) 301 H 105 Random Glucose Calcium Magnesium Total Bilirubin AST ALT Alkaline Phosphatase Total Protein Albumin Globulin Albumin/Globulin Ratio Carcinoembryonic Ag Blood Type Antibody Screen Assessment & Plan (1) Colonic mass Assessment and Plan: concerning to colon cancer GI evaluation surgical evaluation Status: Acute (2) Liver lesion Assessment and Plan: likely metastatic disease recommend IR liver lesion biopsy Status: Acute (3) Anemia Assessment and Plan: rule out iron deficiency Status: Acute (4) Coagulopathy Assessment and Plan: likely nutritional Thank you for this interesting consult. Status: Acute
--- NOTE | 2017-05-20 20:53 | RAD ---
PROCEDURE: CHEST RADIOGRAPH, 1 VIEW HISTORY: colon mass COMPARISON: Comparison is made with 11/03/2016 FINDINGS: LUNGS: Bibasilar small opacities likely atelectasis. PLEURA: No pneumothorax or pleural fluid seen. CARDIOVASCULAR: The cardiac silhouette is enlarged. OSSEOUS STRUCTURES: No significant abnormalities. VISUALIZED UPPER ABDOMEN: Normal. OTHER FINDINGS: None. IMPRESSION: No radiographic evidence of metastasis in the lungs. Small bibasilar opacities likely atelectasis.
--- NOTE | 2017-05-20 21:53 | RAD ---
HISTORY: constipation COMPARISON: No prior. FINDINGS: BOWEL: Moderate constipation is noted. No radiographic evidence of high-grade bowel obstruction. BONES: Normal. OTHER FINDINGS: None. IMPRESSION: Moderate constipation.
[2017-05-21] MEDS: Dextrose 5%/0.9% NS 1,000 ML IV SCH ×2 (05:00→13:46)
[2017-05-21 08:11] LABS: BASO # 0.1 K/uL (0.0-0.2); BASO % 0.7 % (0.0-2.0); EOS # 0.1 K/uL (0.0-0.7); EOS % 1.3 % (0.0-4.0); HEMOGLOBIN 10.1 g/dL (11.0-16.0); LYMPH # 1.3 K/uL (1.0-4.3); LYMPH % 14.2 % (20.0-40.0); MEAN CELL VOLUME 83.8 fL (81.0-99.0); MEAN CORPUSCULAR HGB CONC 33.4 g/dL (33.0-37.0); MEAN PLATELET VOLUME 7.8 fL (7.2-11.7); MONO # 0.7 K/uL (0.0-0.8); NEUT # 7.1 K/uL (1.8-7.0); NEUT % 76.8 % (50.0-75.0); RBC 3.62 Mil/uL (3.80-5.20); RED CELL DISTRIBUTION WIDTH 16.9 % (11.5-14.5); WHITE BLOOD COUNT 9.2 K/uL (4.8-10.8)
[2017-05-21] MEDS: (Novolin R) Insulin Human Regular 100 units/ml vial SC SCH ×4 (08:27→21:25)
[2017-05-21] MEDS ORDERED: Iodixanol 320 mg/ml 150 ml Bottle IV ONE (08:27)
[2017-05-21 08:38] LABS: ALB/GLOB RATIO 0.8 (1.0-2.1); ALBUMIN 2.6 g/dL (3.5-5.0); ALT/SGPT 22 U/L (9-52); AST/SGOT 21 U/L (14-36); BLOOD UREA NITROGEN 5 mg/dL (7-17); CALCIUM 7.4 mg/dl (8.6-10.4); GFR AFRICAN-AMERICAN > 60; GFR NON-AFRICAN AMERICAN > 60; MAGNESIUM 1.7 mg/dL (1.6-2.3)
[2017-05-21] MEDS ORDERED: Phytonadione 10 mg/ml Inj (Adult) SC STA (09:25)
--- NOTE | 2017-05-21 09:57 | CT ---
PROCEDURE: CT Chest with contrast HISTORY: malignancy staging, colon mass, evaluate for metastasis COMPARISON: No prior similar study available for comparison TECHNIQUE: Contiguous axial images were obtained through the chest with intravenous contrast enhancement. Sagittal and coronal reconstructions were performed. IV contrast: 100 mL Visipaque 320 Radiation dose (DLP): 2-3.16 mGy-cm. This CT exam was performed using one or more of the following dose reduction techniques: Automated exposure control, adjustment of the mA and/or kV according to patient size, and/or use of iterative reconstruction technique. FINDINGS: LUNGS: Small opacity in noted at the lingula likely represent atelectasis. Partial atelectasis of the lower lobes due to pleural effusion. MEDIASTINUM: Unremarkable thoracic aorta. No aneurysm or dissection. The heart is mildly to moderately enlarged. Small to moderate pericardial effusion is noted. Main pulmonary artery unremarkable. No vascular congestion. No lymphadenopathy. PLEURA: Small to moderate bilateral pleural effusion larger on the right. BONES: Heterogeneous density in the osseous structure without evidence of destructive bony lesion. UPPER ABDOMEN: Large heterogeneous mass lesions in the liver are noted highly suspicious for metastasis. OTHER FINDINGS: None. IMPRESSION: No CT evidence of metastasis in the lungs. Small opacity at the lingula likely represent atelectasis. Small to moderate bilateral pleural effusions associated with partial atelectasis of the lower lobes. [id number] pericardial effusion. [id number] cardiomegaly.
[2017-05-21] MEDS: POLYETHYLENE GLYCOL 3350 17 GM/Dose PACKET PO SCH (10:16)
[2017-05-21] MEDS: Pantoprazole 40 mg EC Tab PO SCH (10:16)
[2017-05-21] MEDS ORDERED: Peg-Electrolyte Oral Soln 4L (Golytely) PO ONE (11:00)
--- NOTE | 2017-05-21 11:45 | CP.PCM.PN ---
Subjective - Date & Time of Evaluation Date of Evaluation: 05/21/17 Time of Evaluation: 07:00 - Subjective Subjective: General surgery progress note for Dr. Kenny Lemos, PGY-1 Pt S & E at bedside. Pt reports abdominal distention, ab pain improved. Denies N & V, F & C, chest pain, SOB, dizziness, bright red blood per rectum. Per nursing - pt had BM x 2 yesterday with flatus. Pt received 1 unit pRBCs without problems. Objective - Vital Signs/Intake and Output Vital Signs (last 24 hours): Temp Pulse Resp BP Pulse Ox 97.7 F 93 H 20 174/94 H 95 05/21/17 08:00 05/21/17 08:00 05/21/17 08:00 05/21/17 08:00 05/21/17 08:00 Intake and Output: 05/21/17 05/21/17 06:59 18:59 Intake Total 1825 Balance 1825 - Medications Medications: Current Medications Bisacodyl (Dulcolax) 10 mg PO ONCE ONE Stop: 05/21/17 17:01 Heparin Sodium (Porcine) (Heparin) 5,000 units SC Q8 [facility] Last Admin: 05/21/17 05:45 Dose: 5,000 units Dextrose/Sodium Chloride (Dextrose 5%/0.9% Ns 1000 Ml) 1,000 mls @ 100 mls/hr IV .Q10H [facility] Last Admin: 05/21/17 05:00 Dose: 100 mls/hr Insulin Human Regular (Novolin R) 0 unit SC ACHS [facility] PRN Reason: Protocol Last Admin: 05/21/17 08:27 Dose: 2 unit Labetalol HCl (Trandate) 100 mg PO Q12H [facility] Last Admin: 05/21/17 08:29 Dose: 100 mg Morphine Sulfate (Morphine) 2 mg IV Q6 PRN PRN Reason: Pain, moderate (4-7) Last Admin: 05/20/17 18:12 Dose: 2 mg Ondansetron HCl (Zofran Inj) 4 mg IVP Q6 [facility] Stop: 05/24/17 00:01 Pantoprazole Sodium (Protonix Ec Tab) 40 mg PO DAILY [facility] Last Admin: 05/21/17 10:16 Dose: 40 mg Polyethylene Glycol (Miralax) 17 gm PO QAM [facility] Last Admin: 05/21/17 10:16 Dose: 17 gm - Labs Labs: 05/21/17 08:04 05/21/17 08:04 PT 17.2 SECONDS (9.7-12.2) H 05/20/17 07:13 INR 1.5 05/20/17 07:13 - Constitutional Appears: Non-toxic, No Acute Distress - Head Exam Head Exam: ATRAUMATIC, NORMAL INSPECTION, NORMOCEPHALIC - Eye Exam Eye Exam: EOMI, Normal appearance - ENT Exam ENT Exam: Mucous Membranes Moist - Neck Exam Neck Exam: Full ROM, Normal Inspection - Respiratory Exam Respiratory Exam: NORMAL BREATHING PATTERN - Cardiovascular Exam Cardiovascular Exam: REGULAR RHYTHM, +S1, +S2 - GI/Abdominal Exam GI & Abdominal Exam: Distended (tympanic), Soft, Tenderness (mild, diffuse). absent: Guarding, Rigid, Rebound - Extremities Exam Extremities Exam: Normal Inspection - Neurological Exam Neurological Exam: Alert, Awake, CN II-XII Intact, Oriented x3 - Psychiatric Exam Psychiatric exam: Normal Affect, Normal Mood - Skin Skin Exam: Dry, Intact, Normal Color, Warm Assessment and Plan - Assessment and Plan (Free Text) Assessment: 86F w/un-obstructing colon mass Plan: FU GI colonoscopy tomorrow Bowel prep today pain control further surgical recs as per GI findings Will follow BENNIE attending Aminta, PGY-1
--- NOTE | 2017-05-21 14:53 | PN ---
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 No reported active bleeding. No chest pain, significant shortness of breath or palpitation. Today's lab showed hemoglobin of 10.1 with hematocrit 30.4 with low sodium 131, low BUN of 5, low creatinine of 0.6 with blood glucose level reported to be 215, then 228. Calcium still low 7.4, phosphorous low at 2.3, low albumin 2.6, low total protein 6.0. CEA level reported to be 11.6. Chest CAT scan is still pending and the most recent abdominal x-ray, yesterday, reported indicative of moderate constipation. PHYSICAL EXAMINATION: GENERAL: A 86-year-old female. VITAL SIGNS: Afebrile with pulse of 90, respiratory rate 20 to 22, blood pressure 166/90. HEENT: Showed pale, dry oral mucous membrane. Nonicteric sclerae. LUNGS: Few scattered crepitation, decreased air entry at bases. HEART: Positive S1 and S2. ABDOMEN: Soft. Bowel sounds are present with mild generalized tenderness. No mass or organomegaly. No rebound tenderness or guarding with mild distention, hypoactive bowel sounds. EXTREMITIES: Without significant clubbing, cyanosis, or edema. NEUROLOGIC: No reported neurological deficits, sensory or motor. IMPRESSION: 1. Sigmoid mass/lesion with metastatic disease to the liver. As per, radiology study results with elevated CEA indicative of possible metastatic colon cancer. 2. Diarrhea, most likely postobstructive syndrome secondary to above. 3. Abnormal CAT scan of the abdomen and pelvis. 4. Known history of hypertension and diabetes mellitus. 5. Anemia secondary to above. 6. Malnutrition with electrolyte imbalance. SUGGESTIONS: 1. Agree with your plan. 2. The patient is prepared for colonoscopy at a.m. Further evaluation to follow. Sp Leblanc MD
[2017-05-21] MEDS ORDERED: Bisacodyl 5mg EC Tab PO ONE (17:00)
--- NOTE | 2017-05-21 19:49 | CP.PCM.PN ---
Subjective - Date & Time of Evaluation Date of Evaluation: 05/21/17 Time of Evaluation: 13:00 - Subjective Subjective: Seen and examined,lying on bed comfortable Feels better .Abdomen is less distended Her Niece visited her last night As per patient her Niece will make decision for her. She has a son lives in [place].She states that spoke to her son Objective - Vital Signs/Intake and Output Vital Signs (last 24 hours): Temp Pulse Resp BP Pulse Ox 97.7 F 93 H 20 174/94 H 95 05/21/17 08:00 05/21/17 08:00 05/21/17 08:00 05/21/17 08:00 05/21/17 08:00 Intake and Output: 05/21/17 05/22/17 18:59 06:59 Intake Total 1400 Balance 1400 - Medications Medications: Current Medications Heparin Sodium (Porcine) (Heparin) 5,000 units SC Q8 [facility] Last Admin: 05/21/17 13:12 Dose: Not Given Dextrose/Sodium Chloride (Dextrose 5%/0.9% Ns 1000 Ml) 1,000 mls @ 100 mls/hr IV .Q10H [facility] Last Admin: 05/21/17 13:46 Dose: Not Given Insulin Human Regular (Novolin R) 0 unit SC ACHS [facility] PRN Reason: Protocol Last Admin: 05/21/17 12:20 Dose: 1 unit Labetalol HCl (Trandate) 100 mg PO Q12H [facility] Last Admin: 05/21/17 08:29 Dose: 100 mg Morphine Sulfate (Morphine) 2 mg IV Q6 PRN PRN Reason: Pain, moderate (4-7) Last Admin: 05/20/17 18:12 Dose: 2 mg Ondansetron HCl (Zofran Inj) 4 mg IVP Q6 [facility] Stop: 05/24/17 00:01 Last Admin: 05/21/17 17:21 Dose: 4 mg Pantoprazole Sodium (Protonix Ec Tab) 40 mg PO DAILY [facility] Last Admin: 05/21/17 10:16 Dose: 40 mg Polyethylene Glycol (Miralax) 17 gm PO QAM [facility] Last Admin: 05/21/17 10:16 Dose: 17 gm - Labs Labs: 05/21/17 08:04 05/21/17 08:04 PT 17.2 SECONDS (9.7-12.2) H 05/20/17 07:13 INR 1.5 05/20/17 07:13 - Constitutional Appears: Non-toxic - Head Exam Head Exam: NORMAL INSPECTION - Eye Exam Eye Exam: Normal appearance - ENT Exam ENT Exam: Mucous Membranes Moist - Neck Exam Neck Exam: Full ROM - Respiratory Exam Respiratory Exam: Clear to Ausculation Bilateral, NORMAL BREATHING PATTERN - Cardiovascular Exam Cardiovascular Exam: REGULAR RHYTHM - GI/Abdominal Exam GI & Abdominal Exam: Distended, Soft, Normal Bowel Sounds. absent: Tenderness - Extremities Exam Extremities Exam: Full ROM - Back Exam Back Exam: NORMAL INSPECTION - Neurological Exam Neurological Exam: Awake, Oriented x3 - Psychiatric Exam Psychiatric exam: Normal Mood - Skin Skin Exam: Dry Assessment and Plan - Assessment and Plan (Free Text) Plan: 1. Sigmoid colon mass/Liver lesion likely mets/Weight loss and abdominal pain Possible colon malignancy with mets patient feels better today/after move her bowel.She is in touch with her Niece -CT-Abd/Pelvis on admission showed 8.6 cm sigmoid mass with extensive hepatic metastasis. Bilateral renal cysts with large right upper pole renal cyst. Small bilateral pleural effusion and small pericardial effusion. Small hiatal hernia. Possible small diverticulum of the herniated stomach CEA GI consult Dr Foster ,appreciated -colonoscopy and biopsy on Monday Dr Bright oncology consult Surgery consult Dr Richard-appreciated bowel prep for colonosopy d/w DR Foster today -colonoscopy on Monday 2.DM-Monitor sugar 3.Hypertension Continue labetolol Her blood pressure is high add Vasotec 4.Anemia- s/p Transfusion 5.Pericardial effusion/cardiomegaly Echo report noted,cardiology consult appreciated 6.DVT and GI prophylasix on heparin sq and pepsid liquid diet
[2017-05-22] MEDS: Dextrose 5%/0.9% NS 1,000 ML IV SCH ×5 (00:15→21:44)
[2017-05-22] MEDS: (Novolin R) Insulin Human Regular 100 units/ml vial SC SCH ×4 (08:02→21:58)
[2017-05-22 08:05] LABS: BASO % 0.4 % (0.0-2.0); EOS # 0.1 K/uL (0.0-0.7); EOS % 0.5 % (0.0-4.0); HEMOGLOBIN 10.6 g/dL (11.0-16.0); INR 1.4; LYMPH # 1.3 K/uL (1.0-4.3); LYMPH % 12.1 % (20.0-40.0); MEAN CELL VOLUME 82.9 fL (81.0-99.0); MEAN CORPUSCULAR HEMOGLOBIN 27.2 pg (27.0-31.0); MEAN CORPUSCULAR HGB CONC 32.9 g/dL (33.0-37.0); MEAN PLATELET VOLUME 7.4 fL (7.2-11.7); MONO # 0.8 K/uL (0.0-0.8); MONO % 7.8 % (0.0-10.0); NEUT # 8.4 K/uL (1.8-7.0); NEUT % 79.2 % (50.0-75.0); NRBC % 0.1 % (0.0-2.0); PROTHROMBIN TIME 15.8 SECONDS (9.7-12.2); RBC 3.89 Mil/uL (3.80-5.20); RED CELL DISTRIBUTION WIDTH 17.3 % (11.5-14.5); WHITE BLOOD COUNT 10.6 K/uL (4.8-10.8)
[2017-05-22 08:38] LABS: ALB/GLOB RATIO 0.8 (1.0-2.1); ALBUMIN 2.8 g/dL (3.5-5.0); ALT/SGPT 21 U/L (9-52); AST/SGOT 16 U/L (14-36); BLOOD UREA NITROGEN 6 mg/dL (7-17); CALCIUM 7.3 mg/dl (8.6-10.4); GFR AFRICAN-AMERICAN > 60; GFR NON-AFRICAN AMERICAN > 60
[2017-05-22] MEDS: POLYETHYLENE GLYCOL 3350 17 GM/Dose PACKET PO SCH (09:23)
[2017-05-22] MEDS: Pantoprazole 40 mg EC Tab PO SCH (09:23)
--- NOTE | 2017-05-22 09:34 | CP.PCM.PN ---
Subjective - Date & Time of Evaluation Date of Evaluation: 05/22/17 Time of Evaluation: 07:00 - Subjective Subjective: Surgical Progress Note: Patient was seen and examined at bedside in the AM. Patient states abdominal pain has improved. Patient denies nausea, vomiting, fever, chest pain or shortness of breath. Objective - Vital Signs/Intake and Output Vital Signs (last 24 hours): Temp Pulse Resp BP Pulse Ox 98.2 F 101 H 20 162/92 H 95 05/22/17 07:53 05/22/17 07:53 05/22/17 07:53 05/22/17 07:53 05/22/17 07:53 Intake and Output: 05/22/17 05/22/17 06:59 18:59 Intake Total 830 Balance 830 - Medications Medications: Current Medications Enalapril Maleate (Vasotec) 5 mg PO DAILY [facility] Last Admin: 05/22/17 09:24 Dose: Not Given Heparin Sodium (Porcine) (Heparin) 5,000 units SC Q8 [facility] Last Admin: 05/22/17 06:00 Dose: Not Given Dextrose/Sodium Chloride (Dextrose 5%/0.9% Ns 1000 Ml) 1,000 mls @ 100 mls/hr IV .Q10H [facility] Last Admin: 05/22/17 02:30 Dose: 100 mls/hr Potassium Chloride (Potassium Chloride 20 Meq/100 Ml) 20 meq in 100 mls @ 50 mls/hr IVPB ONCE ONE Stop: 05/22/17 11:21 Insulin Human Regular (Novolin R) 0 unit SC ACHS [facility] PRN Reason: Protocol Last Admin: 05/22/17 08:02 Dose: Not Given Labetalol HCl (Trandate) 100 mg PO Q12H [facility] Last Admin: 05/22/17 09:06 Dose: 100 mg Morphine Sulfate (Morphine) 2 mg IV Q6 PRN PRN Reason: Pain, moderate (4-7) Last Admin: 05/20/17 18:12 Dose: 2 mg Ondansetron HCl (Zofran Inj) 4 mg IVP Q6 [facility] Stop: 05/24/17 00:01 Last Admin: 05/22/17 05:45 Dose: 4 mg Pantoprazole Sodium (Protonix Ec Tab) 40 mg PO DAILY [facility] Last Admin: 05/22/17 09:23 Dose: Not Given Polyethylene Glycol (M[facility]ax) [facility] [place] Last Admin: 05/22/17 09:23 Dose: Not Given - Labs Labs: 05/22/17 07:41 05/22/17 07:41 PT 15.8 SECONDS (9.7-12.2) H 05/22/17 07:41 INR 1.4 05/22/17 07:41 APTT 30 SECONDS (21-34) 05/22/17 07:41 - Constitutional Appears: No Acute Distress - Head Exam Head Exam: ATRAUMATIC, NORMAL INSPECTION - Eye Exam Eye Exam: Normal appearance - ENT Exam ENT Exam: Mucous Membranes Moist - Respiratory Exam Respiratory Exam: NORMAL BREATHING PATTERN - Cardiovascular Exam Cardiovascular Exam: +S1, +S2 - GI/Abdominal Exam GI & Abdominal Exam: Soft, Normal Bowel Sounds. absent: Firm, Guarding, Tenderness - Extremities Exam Extremities Exam: Normal Inspection - Neurological Exam Neurological Exam: Alert, Awake - Psychiatric Exam Psychiatric exam: Normal Affect, Normal Mood - Skin Skin Exam: Normal Color, Warm Assessment and Plan - Assessment and Plan (Free Text) Assessment: 86 year old female with un-obstructing colon mass FU GI colonoscopy 05/22/17 pain control further surgical recs as per GI findings Megha Mokn PGY-1
[2017-05-22] MEDS ORDERED: Propofol 10 mg/ml Inj (20 ML) ONE (14:10)
--- NOTE | 2017-05-22 20:25 | CP.PCM.PN ---
Subjective - Date & Time of Evaluation Date of Evaluation: 05/22/17 Time of Evaluation: 07:50 - Subjective Subjective: Patient was seen and examined at bedside in the AM. Patient states abdominal pain has improved. Patient denies nausea, vomiting, fever, chest pain or shortness of breath. Objective - Vital Signs/Intake and Output Vital Signs (last 24 hours): Temp Pulse Resp BP Pulse Ox 98.7 F 91 H 20 172/104 H 95 05/22/17 17:34 05/22/17 17:34 05/22/17 17:34 05/22/17 18:19 05/22/17 17:34 Intake and Output: 05/22/17 05/23/17 18:59 06:59 Intake Total 1100 Balance 1100 - Medications Medications: Current Medications Diltiazem HCl (Cardizem Cd) 120 mg PO DAILY [facility] Enalapril Maleate (Vasotec) 10 mg PO DAILY [facility] Heparin Sodium (Porcine) (Heparin) 5,000 units SC Q8 [facility] Last Admin: 05/22/17 14:22 Dose: Not Given Dextrose/Sodium Chloride (Dextrose 5%/0.9% Ns 1000 Ml) 1,000 mls @ 100 mls/hr IV .Q10H [facility] Last Admin: 05/22/17 12:59 Dose: 100 mls/hr Insulin Human Regular (Novolin R) 0 unit SC ACHS [facility] PRN Reason: Protocol Last Admin: 05/22/17 17:30 Dose: 3 unit Labetalol HCl (Trandate) 100 mg PO Q12H [facility] Last Admin: 05/22/17 20:10 Dose: 100 mg Morphine Sulfate (Morphine) 2 mg IV Q6 PRN PRN Reason: Pain, moderate (4-7) Last Admin: 05/20/17 18:12 Dose: 2 mg Ondansetron HCl (Zofran Inj) 4 mg IVP Q6 [facility] Stop: 05/24/17 00:01 Last Admin: 05/22/17 17:43 Dose: 4 mg Pantoprazole Sodium (Protonix Ec Tab) 40 mg PO DAILY [facility] Last Admin: 05/22/17 09:23 Dose: Not Given Polyethylene Glycol (Miralax) 17 gm PO QAM [facility] Last Admin: 05/22/17 09:23 Dose: Not Given - Labs Labs: 05/22/17 07:41 05/22/17 07:41 PT 15.8 SECONDS (9.7-12.2) H 05/22/17 07:41 INR 1.4 05/22/17 07:41 APTT 30 SECONDS (21-34) 05/22/17 07:41 - Additional Findings Additional findings: - Constitutional Appears: Non-toxic - Head Exam Head Exam: NORMAL INSPECTION - Eye Exam Eye Exam: Normal appearance - ENT Exam ENT Exam: Mucous Membranes Moist - Neck Exam Neck Exam: Full ROM - Respiratory Exam Respiratory Exam: Clear to Ausculation Bilateral, NORMAL BREATHING PATTERN - Cardiovascular Exam Cardiovascular Exam: REGULAR RHYTHM - GI/Abdominal Exam GI & Abdominal Exam: Distended, Soft, Normal Bowel Sounds, Tenderness (LUQ/LLQ, Improved) - Extremities Exam Extremities Exam: Full ROM - Back Exam Back Exam: NORMAL INSPECTION - Neurological Exam Neurological Exam: Awake, Oriented x3 - Psychiatric Exam Psychiatric exam: Normal Mood - Skin Skin Exam: Dry Assessment and Plan - Assessment and Plan (Free Text) Assessment: 86 year old female with a PMHx of DMII, and HTN who presented with diffusely radiating, 10/10, sharp LLQ abdominal pain x 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 Bilateral renal cysts with large right upper pole renal cyst. Small bilateral pleural effusion and small pericardial effusion. Small hiatal hernia. 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 Bilateral renal cysts with large right upper pole renal cyst. Small bilateral pleural effusion and small pericardial effusion. Small hiatal hernia. Possible small diverticulum of the herniated stomach CEA elevated @ 11.6. (Normal = 0-3.0) GI consult Dr Foster ,appreciated -colonoscopy and biopsy on Monday Dr Bright oncology consult Surgery consult Dr Richard-appreciated Colonscopy (05/22/17): Non-bleeding external and internal hemorrhoids. 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 Biopsied F/U on Pathology report from biopsy. Morphine 2 Q6H IV PRN for pain control DM- Monitor sugar ISS Hypertension Cont. Labetolol 100mg Q12H [facility] Enalapril from 5 to 10mg Daily Started Cardizem Cd 120mg Daily Anemia S/P Transfusion H/H Stable Cont. to monitor Pericardial effusion/cardiomegaly Cardiology Consulted (Dr. Portillo) - help appreciated ECHO (05/20/17): Diastolic Dysfunction Grade I-abnormal relaxation pattern. Trarce TR and MR DVT and GI prophylaxis Heparin/Protonix. Morphine 2 Q6H IV PRN for pain control Patient discussed with Attending Dillon Estrada - PGY1
[2017-05-23 07:36] LABS: BASO % 0.3 % (0.0-2.0); EOS % 0.3 % (0.0-4.0); HEMOGLOBIN 9.9 g/dL (11.0-16.0); LYMPH # 1.6 K/uL (1.0-4.3); LYMPH % 17.5 % (20.0-40.0); MEAN CELL VOLUME 83.2 fL (81.0-99.0); MEAN CORPUSCULAR HEMOGLOBIN 27.8 pg (27.0-31.0); MEAN CORPUSCULAR HGB CONC 33.4 g/dL (33.0-37.0); MEAN PLATELET VOLUME 7.3 fL (7.2-11.7); MONO # 0.8 K/uL (0.0-0.8); MONO % 8.2 % (0.0-10.0); NEUT # 6.7 K/uL (1.8-7.0); NEUT % 73.7 % (50.0-75.0); RBC 3.55 Mil/uL (3.80-5.20); WHITE BLOOD COUNT 9.1 K/uL (4.8-10.8)
[2017-05-23 08:02] LABS: ALBUMIN 2.5 g/dL (3.5-5.0); ALT/SGPT 23 U/L (9-52); AST/SGOT 14 U/L (14-36); BLOOD UREA NITROGEN 6 mg/dL (7-17); CALCIUM 7.5 mg/dl (8.6-10.4); GFR AFRICAN-AMERICAN > 60; GFR NON-AFRICAN AMERICAN > 60
[2017-05-23 08:23] LABS: ALB/GLOB RATIO 0.8 (1.0-2.1)
[2017-05-23] MEDS: (Novolin R) Insulin Human Regular 100 units/ml vial SC SCH ×4 (08:46→21:45)
--- NOTE | 2017-05-23 09:48 | CP.PCM.PN ---
Subjective - Date & Time of Evaluation Date of Evaluation: 05/23/17 Time of Evaluation: 09:45 - Subjective Subjective: Surgery PT s&e. Pt underewnt colonoscopy yesterday found circumferential sigmoid mass. Denies F/C/N/V. Reports diarrhea. Objective - Vital Signs/Intake and Output Vital Signs (last 24 hours): Temp Pulse Resp BP Pulse Ox 98.5 F 89 20 145/80 95 05/23/17 07:55 05/23/17 07:55 05/23/17 07:55 05/23/17 07:55 05/23/17 07:55 - Medications Medications: Current Medications Diltiazem HCl (Cardizem Cd) 120 mg PO DAILY [facility] Enalapril Maleate (Vasotec) 10 mg PO DAILY [facility] Potassium Chloride (Potassium Chloride 20 Meq/100 Ml) 20 meq in 100 mls @ 50 mls/hr IVPB ONCE ONE Stop: 05/23/17 11:29 Potassium Chloride (Potassium Chloride 20 Meq/100 Ml) 20 meq in 100 mls @ 50 mls/hr IVPB ONCE ONE Stop: 05/23/17 13:29 Insulin Human Regular (Novolin R) 0 unit SC ACHS [facility] PRN Reason: Protocol Last Admin: 05/23/17 08:46 Dose: Not Given Labetalol HCl (Trandate) 100 mg PO Q12H [facility] Last Admin: 05/23/17 08:59 Dose: 100 mg Morphine Sulfate (Morphine) 2 mg IV Q6 PRN PRN Reason: Pain, moderate (4-7) Last Admin: 05/22/17 21:49 Dose: 2 mg Ondansetron HCl (Zofran Inj) 4 mg IVP Q6 [facility] Stop: 05/24/17 00:01 Last Admin: 05/23/17 06:18 Dose: 4 mg Pantoprazole Sodium (Protonix Ec Tab) 40 mg PO DAILY [facility] Last Admin: 05/22/17 09:23 Dose: Not Given Polyethylene Glycol (Miralax) 17 gm PO QAM [facility] Last Admin: 05/22/17 09:23 Dose: Not Given - Labs Labs: 05/23/17 07:23 05/23/17 07:23 PT 15.8 SECONDS (9.7-12.2) H 05/22/17 07:41 INR 1.4 05/22/17 07:41 APTT 30 SECONDS (21-34) 05/22/17 07:41 - Constitutional Appears: No Acute Distress - Head Exam Head Exam: ATRAUMATIC, NORMAL INSPECTION, NORMOCEPHALIC - Eye Exam Eye Exam: EOMI, Normal appearance, PERRL Pupil Exam: NORMAL ACCOMODATION, PERRL - ENT Exam ENT Exam: Mucous Membranes Moist, Normal Exam - Neck Exam Neck Exam: Full ROM, Normal Inspection. absent: Lymphadenopathy - Respiratory Exam Respiratory Exam: Clear to Ausculation Bilateral, NORMAL BREATHING PATTERN - Cardiovascular Exam Cardiovascular Exam: REGULAR RHYTHM, +S1, +S2. absent: Murmur - GI/Abdominal Exam GI & Abdominal Exam: Distended, Soft, Tenderness. absent: Firm, Guarding, Rigid , Rebound - Extremities Exam Extremities Exam: Full ROM, Normal Capillary Refill, Normal Inspection. absent : Joint Swelling, Pedal Edema - Back Exam Back Exam: NORMAL INSPECTION - Neurological Exam Neurological Exam: Alert, Awake, CN II-XII Intact, Normal Gait, Oriented x3 - Psychiatric Exam Psychiatric exam: Normal Affect, Normal Mood - Skin Skin Exam: Dry, Intact, Normal Color, Warm Assessment and Plan - Assessment and Plan (Free Text) Assessment: Sigmoid mass Colonoscopy circumferential sigmoid mass -F/U bx -F/U air/barium enema -FLD -Monitor obstructive sx Will DW Dr. Richard
[2017-05-23] MEDS: Pantoprazole 40 mg EC Tab PO SCH (09:50)
[2017-05-23] MEDS: POLYETHYLENE GLYCOL 3350 17 GM/Dose PACKET PO SCH (09:50)
[2017-05-23] MEDS: Potassium Ch 20mEq in D5-1/2NS 1,000 ML IV SCH ×2 (12:05→20:48)
--- NOTE | 2017-05-23 13:01 | PN ---
DATE: LOCATION: [facility], bed B. SUBJECTIVE: This is an 86-year-old female seen and examined in rounds today, appeared to be awake, alert with complaint of some abdominal pain and discomfort. It has to be mentioned that the case discussed at length with the science consultant, Dr. Richard regarding the barium enema versus Gastrografin enema. The patient still has intermittent period of mild diarrhea. The entire chart is reviewed including but not limited to the most recent lab and radiology study results, current and the previous medication list, current and the previous medical events. Today's hemoglobin is 9.9, hematocrit 29.5 with normal white blood cells and thrombocytopenia of 404 with low potassium 3.0, blood glucose level 210 with low calcium 7.5 with low albumin 2.5, low total protein 5.9 with low calcium 7.5. A stool for occult blood reported to be positive. Pathology report from yesterday's coloscopy still pending. PHYSICAL EXAMINATION: GENERAL: An 86-year-old female. VITAL SIGNS: Afebrile with pulse of 90, respiratory rate 20 to 22 with blood pressure 140/78. HEENT: Showed pale dry oral mucous membrane. Nonicteric sclerae. LUNGS: Few scattered crepitation. Decreased air entry at bases. HEART: Positive S1 and S2. ABDOMEN: Soft. Bowel sounds are present with slight distention and left-sided tenderness. No mass or organomegaly. No rebound tenderness or guarding. RECTAL: The patient refused. EXTREMITIES: Without significant clubbing, cyanosis or edema. NEUROLOGIC: No reported new neurological deficits, sensory or motor. IMPRESSION: 1. Sigmoid colon mass lesion, biopsies done, most likely cancer of the colon with possible metastatic disease. 2. Diarrhea, most likely secondary to above. 3. Abnormal CAT scan of the abdomen and pelvis. 4. Known history of diabetes mellitus, hypertension. 5. Anemia secondary to above. 6. Malnutrition with electrolyte imbalance with hypokalemia and hypocalcemia that could be related also to the patient's recurrent episode of her diarrhea. SUGGESTION: 1. Agree with your plan. 2. Gastrografin enema for the exact location and the extent of the lesion. 3. Oncology/Hematology reevaluation. Sp Leblanc MD [facility] # [id number]
[2017-05-23] MEDS ORDERED: Iohexol 300 100 ML IJ ONE (14:36)
[2017-05-23 14:55] LABS: BLOOD UREA NITROGEN 7 mg/dL (7-17); CALCIUM 7.7 mg/dl (8.6-10.4); GFR AFRICAN-AMERICAN > 60; GFR NON-AFRICAN AMERICAN > 60; MAGNESIUM 1.5 mg/dL (1.6-2.3)
--- NOTE | 2017-05-23 16:29 | RAD ---
Limited single contrast Gastrografin enema History: Colon cancer. Comparison: CT scan dated 05/19/2017 Technique: Limited single contrast Gastrografin enema was performed. Findings: Contrast flowed freely through the rectum to the level of the distal sigmoid colon. At the level of the distal sigmoid colon, contrast slowly traversed through a very thin and irregular channel to the level of the mid sigmoid at the site of the known sigmoid carcinoma. Contrast did not flow freely past this level. Exam was subsequently terminated. Impression: Contrast flowed freely through the rectum to the level of the distal sigmoid colon. At the level of the distal sigmoid colon, contrast slowly traversed through a very thin and irregular channel to the level of the mid sigmoid at the site of the known sigmoid carcinoma. Contrast did not flow freely past this level. Exam was subsequently terminated. These findings were concerning for a near complete obstruction of the bowel lumen from the adjacent obstructing tumor. Dr. Richard was present and notified of the findings during the examination.
[2017-05-23] MEDS: diltiaZEM 120 mg/24 Hours CD Cap PO SCH (17:34)
--- NOTE | 2017-05-23 19:46 | CP.PCM.PN ---
<Dillon Estrada - Last Filed: 05/23/17 19:36> Subjective - Date & Time of Evaluation Date of Evaluation: 05/23/17 Time of Evaluation: 19:36 - Subjective Subjective: Patient was seen and examined at bedside in the AM. Patient states abdominal pain has improved. Patient denies nausea, vomiting, fever, chest pain or shortness of breath. Objective - Vital Signs/Intake and Output Vital Signs (last 24 hours): Temp Pulse Resp BP Pulse Ox 98.2 F 98 H 20 141/79 97 05/23/17 16:00 05/23/17 16:00 05/23/17 16:00 05/23/17 16:00 05/23/17 16:00 Intake and Output: 05/23/17 05/24/17 18:59 06:59 Intake Total 450 Balance 450 - Medications Medications: Current Medications Albuterol/Ipratropium (Duoneb 3 Mg/0.5 Mg (3 Ml) Ud) 3 ml INH RQ6 PRN PRN Reason: Shortness of Breath Diltiazem HCl (Cardizem Cd) 120 mg PO DAILY [facility] Last Admin: 05/23/17 17:34 Dose: 120 mg Enalapril Maleate (Vasotec) 10 mg PO DAILY [facility] Last Admin: 05/23/17 09:56 Dose: 10 mg Potassium Chloride/Dextrose/Sod Cl (Potassium Chl 20 Meq In D5-1/2ns) 1,000 mls @ 100 mls/hr IV .Q10H [facility] Last Admin: 05/23/17 12:05 Dose: 100 mls/hr Insulin Human Regular (Novolin R) 0 unit SC ACHS [facility] PRN Reason: Protocol Last Admin: 05/23/17 17:21 Dose: 3 unit Labetalol HCl (Trandate) 100 mg PO Q12H [facility] Last Admin: 05/23/17 19:24 Dose: 100 mg Ondansetron HCl (Zofran Inj) 4 mg IVP Q6 [facility] Stop: 05/24/17 00:01 Last Admin: 05/23/17 17:24 Dose: 4 mg Pantoprazole Sodium (Protonix Ec Tab) 40 mg PO DAILY [facility] Last Admin: 05/23/17 09:50 Dose: 40 mg Polyethylene Glycol (Miralax) 17 gm PO QAM [facility] Last Admin: 05/23/17 09:50 Dose: 17 gm - Labs Labs: 05/23/17 07:23 05/23/17 14:26 PT 15.8 SECONDS (9.7-12.2) H 05/22/17 07:41 INR 1.4 05/22/17 07:41 APTT 30 SECONDS (21-34) 05/22/17 07:41 - Additional Findings Additional findings: - Constitutional Appears: Non-toxic - Head Exam Head Exam: NORMAL INSPECTION - Eye Exam Eye Exam: Normal appearance - ENT Exam ENT Exam: Mucous Membranes Moist - Neck Exam Neck Exam: Full ROM - Respiratory Exam Respiratory Exam: Clear to Ausculation Bilateral, NORMAL BREATHING PATTERN - Cardiovascular Exam Cardiovascular Exam: REGULAR RHYTHM - GI/Abdominal Exam GI & Abdominal Exam: Distended, Soft, Normal Bowel Sounds, Tenderness (LUQ/LLQ, Improved) - Extremities Exam Extremities Exam: Full ROM - Back Exam Back Exam: NORMAL INSPECTION - Neurological Exam Neurological Exam: Awake, Oriented x3 - Psychiatric Exam Psychiatric exam: Normal Mood - Skin Skin Exam: Dry Assessment and Plan - Assessment and Plan (Free Text) Assessment: 86 year old female with a PMHx of DMII, and HTN who presented with diffusely radiating, 10/10, sharp LLQ abdominal pain x 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 Bilateral renal cysts with large right upper pole renal cyst. Small bilateral pleural effusion and small pericardial effusion. Small hiatal hernia. 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 Bilateral renal cysts with large right upper pole renal cyst. Small bilateral pleural effusion and small pericardial effusion. Small hiatal hernia. Possible small diverticulum of the herniated stomach CEA elevated @ 11.6. (Normal = 0-3.0) GI consult Dr Foster ,appreciated -colonoscopy and biopsy on Monday Dr Bright oncology consult - Recs appreciated Surgery consult Dr Richard-appreciated Colonscopy (05/22/17): Non-bleeding external and internal hemorrhoids. 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 Biopsied F/U on Pathology report from biopsy. Morphine 2 Q6H IV PRN for pain control Barium Enema (05/23/2017): Contrast flowed freely through the rectum to the level of the distal sigmoid colon. At the level of the distal sigmoid colon, contrast slowly traversed through a very thin and irregular channel to the level of the mid sigmoid at the site of the known sigmoid carcinoma. Contrast did not flow freely past this level. Exam was subsequently terminated. These findings were concerning for a near complete obstruction of the bowel lumen from the adjacent obstructing tumor. DM- Monitor sugar ISS Hypertension Cont. Labetolol 100mg Q12H Cont. Enalapril 10mg Daily Started Cardizem Cd 120mg Daily Anemia Ordered Iron Sat, Iron/TIBC, Ferritin, and Reticulocyte Count S/P Transfusion H/H Stable Cont. to monitor Pericardial effusion/cardiomegaly Cardiology Consulted (Dr. Portillo) - help appreciated ECHO (05/20/17): Diastolic Dysfunction Grade I-abnormal relaxation pattern. Trarce TR and MR Monitor DVT and GI prophylaxis Heparin/Protonix. Morphine 2 Q6H IV PRN for pain control Patient discussed with Attending Dillon Estrada - PGY1 <Mamta Kirkland V - Last Filed: 06/16/17 23:08> Objective - Vital Signs/Intake and Output Vital Signs (last 24 hours): Temp Pulse Resp BP Pulse Ox 98.3 F 72 20 134/72 95 06/16/17 15:00 06/16/17 15:00 06/16/17 15:00 06/16/17 17:58 06/16/17 15:00 Intake and Output: 06/16/17 06/17/17 18:59 06:59 Intake Total 160 Output Total 20 Balance 140 - Labs Labs: 06/16/17 07:12 06/16/17 07:12 PT 15.2 SECONDS (9.7-12.2) H 06/10/17 07:39 INR 1.3 06/10/17 07:39 APTT 33 SECONDS (21-34) 06/10/17 07:39 Attending/Attestation - Attestation I have personally seen and examined this patient.: Yes I have fully participated in the care of the patient.: Yes I have reviewed all pertinent clinical information, including history, physical exam and plan: Yes Notes (Text): This is late computer entry for 05/23/17. Patient seen, examined and case discussed with day-time resident. Surgery and GI on the case. Patient recommended for barium enema by surgery. Patient went for the enema study in the afternoon. F/U pathology from colonoscopy Assessment/Plan 1)Sigmoid colon mass Liver lesion likely mets Unintentional Weight loss Abdominal pain * GI (Dr. Foster) on the case-->help appreciated * Heme-onc (Dr. Brandon Bright) on the case-->help appreciated * General surgery (Dr. 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 Bilateral renal cysts with large right upper pole renal cyst. Small bilateral pleural effusion and small pericardial effusion. Small hiatal hernia. Possible small diverticulum of the herniated stomach * CT Chest (05/21/17): No CT evidence of metastasis in the lungs. Small opacity at the lingula likely represent atelectasis. Small to moderate bilateral pleural effusions associated with partial atelectasis of the lower lobes. Mild to moderate pericardial effusion. Mild to moderate cardiomegaly. * CEA elevated @ 11.6. (Normal = 0-3.0) * Colonscopy (05/22/17): Non-bleeding external and internal hemorrhoids. 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 Biopsied. * Pending pathology report from the biopsy * Morphine 2 Q6H IV PRN for pain control * Miralax 17gm POqAM * Scheduled for Barium enema-->order clarified between surgery and GI 2) DM * Regular insulin sliding scale subq * Accuchecks QAC and HS * [id number]: 9.4 3) Hypertension * Cont. Labetolol 100mg Q12H * c/w Enalapril 10mg PO Daily * Started Cardizem Cd 120mg PO Daily 4) Anemia * S/P Transfusion * H/H Stable * Cont. to monitor 5) Pericardial effusion Cardiomegaly * Cardiology Consulted (Dr. Portillo) - help appreciated * ECHO (05/20/17): Diastolic Dysfunction Grade I-abnormal relaxation pattern. Trace TR and MR 6) DVT and GI prophylaxis * Heparin held status post colonoscopy * D51/2NS with KCL 20meq 100cc/hr * Zofran 4mg IV Q6H * Protonix 40mg PO daily for GI ppx * Duonebs 3ml Inhaled RQ6H PRN shortness of breathe
--- NOTE | 2017-05-23 21:12 | CP.PCM.PN ---
Subjective - Date & Time of Evaluation Date of Evaluation: 05/23/17 Time of Evaluation: 20:00 - Subjective Subjective: No complaints colonoscopy and barium enema results noted Objective - Vital Signs/Intake and Output Vital Signs (last 24 hours): Temp Pulse Resp BP Pulse Ox 98.2 F 98 H 20 141/79 97 05/23/17 16:00 05/23/17 16:00 05/23/17 16:00 05/23/17 16:00 05/23/17 16:00 Intake and Output: 05/23/17 05/24/17 18:59 06:59 Intake Total 450 Balance 450 - Medications Medications: Current Medications Albuterol/Ipratropium (Duoneb 3 Mg/0.5 Mg (3 Ml) Ud) 3 ml INH RQ6 PRN PRN Reason: Shortness of Breath Diltiazem HCl (Cardizem Cd) 120 mg PO DAILY [facility] Last Admin: 05/23/17 17:34 Dose: 120 mg Enalapril Maleate (Vasotec) 10 mg PO DAILY [facility] Last Admin: 05/23/17 09:56 Dose: 10 mg Potassium Chloride/Dextrose/Sod Cl (Potassium Chl 20 Meq In D5-1/2ns) 1,000 mls @ 100 mls/hr IV .Q10H [facility] Last Admin: 05/23/17 20:48 Dose: Not Given Insulin Human Regular (Novolin R) 0 unit SC ACHS [facility] PRN Reason: Protocol Last Admin: 05/23/17 17:21 Dose: 3 unit Labetalol HCl (Trandate) 100 mg PO Q12H [facility] Last Admin: 05/23/17 19:24 Dose: 100 mg Ondansetron HCl (Zofran Inj) 4 mg IVP Q6 [facility] Stop: 05/24/17 00:01 Last Admin: 05/23/17 17:24 Dose: 4 mg Pantoprazole Sodium (Protonix Ec Tab) 40 mg PO DAILY [facility] Last Admin: 05/23/17 09:50 Dose: 40 mg Polyethylene Glycol (Miralax) 17 gm PO QAM [facility] Last Admin: 05/23/17 09:50 Dose: 17 gm - Labs Labs: 05/23/17 07:23 05/23/17 14:26 PT 15.8 SECONDS (9.7-12.2) H 01/08/18 07:41 INR 1.4 05/22/17 07:41 APTT 30 SECONDS (21-34) 05/22/17 07:41 - Head Exam Head Exam: ATRAUMATIC - Eye Exam Eye Exam: Normal appearance - ENT Exam ENT Exam: Mucous Membranes Dry - Respiratory Exam Respiratory Exam: NORMAL BREATHING PATTERN - Cardiovascular Exam Cardiovascular Exam: +S1, +S2 - GI/Abdominal Exam GI & Abdominal Exam: Normal Bowel Sounds - Extremities Exam Extremities Exam: Normal Inspection - Neurological Exam Neurological Exam: Oriented x3 Assessment and Plan (1) Colonic mass Assessment & Plan: f/u biopsy near obstructing surgery following Status: Acute (2) Liver lesion Assessment & Plan: likely liver mets Status: Acute (3) Anemia Assessment & Plan: check ferritin to rule out iron deficiency Status: Acute (4) Coagulopathy Status: Acute
[2017-05-24] MEDS: Potassium Ch 20mEq in D5-1/2NS 1,000 ML IV SCH ×3 (03:46→16:45)
[2017-05-24 07:43] LABS: BASO % 0.3 % (0.0-2.0); EOS # 0.1 K/uL (0.0-0.7); EOS % 0.6 % (0.0-4.0); HEMOGLOBIN 9.7 g/dL (11.0-16.0); LYMPH # 1.4 K/uL (1.0-4.3); LYMPH % 14.9 % (20.0-40.0); MEAN CELL VOLUME 84.2 fL (81.0-99.0); MEAN CORPUSCULAR HEMOGLOBIN 27.7 pg (27.0-31.0); MEAN PLATELET VOLUME 7.5 fL (7.2-11.7); MONO # 0.8 K/uL (0.0-0.8); MONO % 8.3 % (0.0-10.0); NEUT # 7.4 K/uL (1.8-7.0); NEUT % 75.9 % (50.0-75.0); NRBC % 0.1 % (0.0-2.0); RBC 3.5 Mil/uL (3.80-5.20); RED CELL DISTRIBUTION WIDTH 18.2 % (11.5-14.5); WHITE BLOOD COUNT 9.7 K/uL (4.8-10.8)
[2017-05-24] MEDS: (Novolin R) Insulin Human Regular 100 units/ml vial SC SCH ×5 (07:51→22:40)
[2017-05-24] MEDS ORDERED: Peg-Electrolyte Oral Soln 4L (Golytely) PO ONE (08:43)
[2017-05-24 09:16] LABS: ALB/GLOB RATIO 0.8 (1.0-2.1); ALBUMIN 2.6 g/dL (3.5-5.0); ALT/SGPT 23 U/L (9-52); AST/SGOT 23 U/L (14-36); BLOOD UREA NITROGEN 7 mg/dL (7-17); CALCIUM 7.7 mg/dl (8.6-10.4); GFR AFRICAN-AMERICAN > 60; GFR NON-AFRICAN AMERICAN > 60
[2017-05-24] MEDS: Pantoprazole 40 mg EC Tab PO SCH (09:30)
[2017-05-24] MEDS: POLYETHYLENE GLYCOL 3350 17 GM/Dose PACKET PO SCH (09:30)
[2017-05-24] MEDS: diltiaZEM 120 mg/24 Hours CD Cap PO SCH (09:30)
--- NOTE | 2017-05-24 10:04 | CP.PCM.PN ---
Subjective - Date & Time of Evaluation Date of Evaluation: 05/24/17 Time of Evaluation: 10:01 - Subjective Subjective: Surgery Pt s&e. NAEON. Pt had contrast enema yesterday and tolerated it well. Having diarrhea. Denies F/C?N/V/CP/SOB. Pain controlled. Objective - Vital Signs/Intake and Output Vital Signs (last 24 hours): Temp Pulse Resp BP Pulse Ox 98.7 F 111 H 20 150/100 H 96 05/24/17 08:00 05/24/17 08:00 05/24/17 08:00 05/24/17 09:30 05/24/17 08:00 Intake and Output: 05/24/17 05/24/17 06:59 18:59 Intake Total 2130 Balance 2130 - Medications Medications: Current Medications Albumin Human (Albumin Human 25% (12.5 Gm/50 Ml)) 12.5 gm IV Q4 [facility] Stop: 05/25/17 00:01 Albuterol/Ipratropium (Duoneb 3 Mg/0.5 Mg (3 Ml) Ud) 3 ml INH RQ6 PRN PRN Reason: Shortness of Breath Diltiazem HCl (Cardizem Cd) 120 mg PO DAILY [facility] Last Admin: 05/24/17 09:30 Dose: 120 mg Enalapril Maleate (Vasotec) 10 mg PO DAILY [facility] Last Admin: 05/24/17 09:30 Dose: 10 mg Erythromycin (Erythromycin) 1,000 mg PO ONCE ONE Stop: 05/24/17 11:01 Erythromycin (Erythromycin) 1,000 mg PO ONCE ONE Stop: 05/24/17 15:01 Erythromycin (Erythromycin) 1,000 mg PO ONCE ONE Stop: 05/24/17 23:01 Potassium Chloride/Dextrose/Sod Cl (Potassium Chl 20 Meq In D5-1/2ns) 1,000 mls @ 100 mls/hr IV .Q10H [facility] Last Admin: 05/24/17 06:24 Dose: Not Given Insulin Human Regular (Novolin R) 0 unit SC ACHS [facility] PRN Reason: Protocol Last Admin: 05/24/17 07:57 Dose: Not Given Labetalol HCl (Trandate) 100 mg PO Q12H [facility] Last Admin: 05/24/17 07:51 Dose: 100 mg Neomycin Sulfate (Neomycin Tab) 1,000 mg PO ONCE ONE Stop: 05/24/17 11:01 Neomycin Sulfate (Neomycin Tab) 1,000 mg PO ONCE ONE Stop: 05/24/17 15:01 Neomycin Sulfate (Neomycin Tab) 1,000 mg PO ONCE ONE Stop: 05/24/17 23:01 Pantoprazole Sodium (Protonix Ec Tab) 40 mg PO DAILY [facility] Last Admin: 05/24/17 09:30 Dose: 40 mg Phytonadione (Vitamin K Inj) 10 mg IM BID [facility] Stop: 05/24/17 18:01 Polyethylene Glycol (Miralax) 17 gm PO QAM [facility] Last Admin: 05/24/17 09:30 Dose: 17 gm - Labs Labs: 05/24/17 07:33 05/24/17 07:33 PT 15.8 SECONDS (9.7-12.2) H 05/22/17 07:41 INR 1.4 05/22/17 07:41 APTT 30 SECONDS (21-34) 05/22/17 07:41 - Constitutional Appears: No Acute Distress - Head Exam Head Exam: ATRAUMATIC, NORMAL INSPECTION, NORMOCEPHALIC - Eye Exam Eye Exam: EOMI, Normal appearance, PERRL Pupil Exam: NORMAL ACCOMODATION, PERRL - ENT Exam ENT Exam: Mucous Membranes Moist, Normal Exam - Neck Exam Neck Exam: Full ROM, Normal Inspection. absent: Lymphadenopathy - Respiratory Exam Respiratory Exam: Clear to Ausculation Bilateral, NORMAL BREATHING PATTERN - Cardiovascular Exam Cardiovascular Exam: REGULAR RHYTHM, +S1, +S2. absent: Murmur - GI/Abdominal Exam GI & Abdominal Exam: Soft, Normal Bowel Sounds. absent: Tenderness - Rectal Exam Rectal Exam: Hemorrhoids - Exam Exam: NORMAL INSPECTION - Extremities Exam Extremities Exam: Full ROM, Normal Capillary Refill, Normal Inspection. absent : Joint Swelling, Pedal Edema - Back Exam Back Exam: NORMAL INSPECTION - Neurological Exam Neurological Exam: Alert, Awake, CN II-XII Intact, Normal Gait, Oriented x3 - Psychiatric Exam Psychiatric exam: Normal Affect, Normal Mood - Skin Skin Exam: Dry, Intact, Normal Color, Warm Assessment and Plan - Assessment and Plan (Free Text) Assessment: Sigmoid mass , possible liver mets contrast Enema : near obstructing mass -OR tomorrow -Will obtain consent -NPO aftermidnight -Erythromycin, neomycin for bowel prep -IVF -Medical management DW Dr. Richard
[2017-05-24] MEDS: Phytonadione 10 mg/ml Inj (Adult) IM SCH ×2 (11:33→18:30)
--- NOTE | 2017-05-24 11:46 | PN ---
DATE: LOCATION: [facility], bed B. SUBJECTIVE: This is an 86-year-old female seen and examined in rounds and the case discussed at length with Dr. Richard as well as the admitting MD. The entire chart is reviewed including but not limited to the most recent lab and radiology study results, current and the previous medication list, current and the previous medical events including the official report of the barium enema, which showed sigmoid colon possible carcinoma as the contrast did not flow freely past the level of the midsigmoid colon. Today's lab showed low hemoglobin of 9.7 with hematocrit 29.4, but normal white blood cells and normal platelet count with low sodium 131, increased blood glucose level to 220 with low calcium 7.7, low albumin 2.6, low total protein 5.9. 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 PHYSICAL EXAMINATION: GENERAL: An 86-year-old female. Appeared to be awake, alert, asking for food. VITAL SIGNS: Afebrile with heart rate of 106, respiratory rate 20 to 22, blood pressure of 144/94. HEENT: Showed pale dry oral mucous membrane. Nonicteric sclerae. LUNGS: Few scattered crepitation. Decreased air entry at bases. HEART: Positive S1 and S2 with increased rate. ABDOMEN: Soft. Bowel sounds are present with mild generalized tenderness. No mass or organomegaly. No rebound tenderness or guarding. RECTAL: The patient refused. EXTREMITIES: Without significant edema, clubbing or cyanosis. NEUROLOGIC: No new reported neurological deficits, sensory or motor. IMPRESSION: 1. Colon, sigmoid colon mass lesion with near complete obstruction. 2. Anemia, most likely secondary to above. 3. Poorly-controlled diabetes mellitus. 4. Diarrhea by recent history. It is secondary to obstructive phenomena. 5. Known history of hypertension. 6. Electrolyte imbalance with hyponatremia and hypocalcemia. 7. Malnutrition with hypoalbuminemia. SUGGESTION: 1. Continue current management. 2. Albumin IV. 3. The patient is to be scheduled for partial colon resection. 4. Oncology/Hematology consult. 5. Further recommendation to follow. Sp Leblanc MD [facility] # [id number]
[2017-05-24] MEDS: Albumin Human 25% (12.5 gm/50 ml) IV SCH ×3 (12:00→20:00)
--- NOTE | 2017-05-24 15:52 | CARD ---
APPROVED REPORT EKG Measurement Heart [id number] <Conclusion> Normal sinus rhythm Low voltage QRS Inferior infarct, age undetermined cannot be excluded. Poor R wave progression. Abnormal ECG
--- NOTE | 2017-05-24 18:25 | CP.PCM.PCO ---
Physician Communication Note - Physician Communication Note Physician Communication Note: No cardiovascular contraindication to the planned surgery
--- NOTE | 2017-05-24 19:01 | CP.PCM.PN ---
<Dillon Estrada - Last Filed: 05/24/17 18:56> Subjective - Date & Time of Evaluation Date of Evaluation: 05/24/17 Time of Evaluation: 07:50 - Subjective Subjective: Patient was seen and examined at bedside in the AM. Patient states abdominal pain has improved. Patient denies nausea, vomiting, fever, chest pain or shortness of breath. Objective - Vital Signs/Intake and Output Vital Signs (last 24 hours): Temp Pulse Resp BP Pulse Ox 98.3 F 88 20 156/81 H 95 05/24/17 15:00 05/24/17 15:00 05/24/17 15:00 05/24/17 15:00 05/24/17 15:00 Intake and Output: 05/24/17 05/24/17 06:59 18:59 Intake Total 2130 1330 Balance 2130 1330 - Medications Medications: Current Medications Albumin Human (Albumin Human 25% (12.5 Gm/50 Ml)) 12.5 gm IV Q4 [facility]ANIQUE Stop: 05/25/17 00:01 Last Admin: 05/24/17 12:00 Dose: 12.5 gm Albuterol/Ipratropium (Duoneb 3 Mg/0.5 Mg (3 Ml) Ud) 3 ml INH RQ6 PRN PRN Reason: Shortness of Breath Diltiazem HCl (Cardizem Cd) 120 mg PO DAILY [facility] Last Admin: 05/24/17 09:30 Dose: 120 mg Enalapril Maleate (Vasotec) 15 mg PO DAILY [facility] Erythromycin (Erythromycin) 1,000 mg PO ONCE ONE Stop: 05/24/17 23:01 Potassium Chloride/Dextrose/Sod Cl (Potassium Chl 20 Meq In D5-1/2ns) 1,000 mls @ 100 mls/hr IV .Q10H [facility] Last Admin: 05/24/17 16:45 Dose: 100 mls/hr Insulin Human Regular (Novolin R) 0 unit SC ACHS [facility] PRN Reason: Protocol Last Admin: 05/24/17 16:30 Dose: 8 unit Labetalol HCl (Trandate) 100 mg PO Q12H [facility] Last Admin: 05/24/17 07:51 Dose: 100 mg Neomycin Sulfate (Neomycin Tab) 1,000 mg PO ONCE ONE Stop: 05/24/17 23:01 Pantoprazole Sodium (Protonix Ec Tab) 40 mg PO DAILY [facility] Last Admin: 05/24/17 09:30 Dose: 40 mg Polyethylene Glycol (Miralax) 17 gm PO QAM [facility] Last Admin: 05/24/17 09:30 Dose: 17 gm - Labs Labs: 05/24/17 07:33 05/24/17 07:33 PT 15.8 SECONDS (9.7-12.2) H 05/22/17 07:41 INR 1.4 05/22/17 07:41 APTT 30 SECONDS (21-34) 05/22/17 07:41 - Additional Findings Additional findings: - Constitutional Appears: Non-toxic - Head Exam Head Exam: NORMAL INSPECTION - Eye Exam Eye Exam: Normal appearance - ENT Exam ENT Exam: Mucous Membranes Moist - Neck Exam Neck Exam: Full ROM - Respiratory Exam Respiratory Exam: Clear to Ausculation Bilateral, NORMAL BREATHING PATTERN - Cardiovascular Exam Cardiovascular Exam: REGULAR RHYTHM - GI/Abdominal Exam GI & Abdominal Exam: Distended (Improved), Soft, Normal Bowel Sounds, Tenderness (LUQ/LLQ, Improved) - Extremities Exam Extremities Exam: Full ROM - Back Exam Back Exam: NORMAL INSPECTION - Neurological Exam Neurological Exam: Awake, Oriented x3 - Psychiatric Exam Psychiatric exam: Normal Mood - Skin Skin Exam: Dry Assessment and Plan - Assessment and Plan (Free Text) Assessment: 86 year old female with a PMHx of DMII, and HTN who presented with diffusely radiating, 10/10, sharp LLQ abdominal pain x 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 Bilateral renal cysts with large right upper pole renal cyst. Small bilateral pleural effusion and small pericardial effusion. Small hiatal hernia. 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 Bilateral renal cysts with large right upper pole renal cyst. Small bilateral pleural effusion and small pericardial effusion. Small hiatal hernia. Possible small diverticulum of the herniated stomach CEA elevated @ 11.6. (Normal = 0-3.0) GI consult Dr Foster ,appreciated Dr Bright oncology consult - Recs appreciated Surgery consult Dr Richard-appreciated Colonscopy (05/22/17): Non-bleeding external and internal hemorrhoids. 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 Biopsied F/U on Pathology report from biopsy. Morphine 2 Q6H IV PRN for pain control Barium Enema (05/23/2017): Contrast flowed freely through the rectum to the level of the distal sigmoid colon. At the level of the distal sigmoid colon, contrast slowly traversed through a very thin and irregular channel to the level of the mid sigmoid at the site of the known sigmoid carcinoma. Contrast did not flow freely past this level. Exam was subsequently terminated. These findings were concerning for a near complete obstruction of the bowel lumen from the adjacent obstructing tumor. Patient to go to surgery tomorrow for tumor removal. Surgery will obtain consent , Erythromycin, neomycin for bowel prep. NPO after midnight DM- Monitor sugar ISS increased to High Hypertension Cont. Labetolol 100mg Q12H Enalapril 10mg Daily increased to 15mg Started Cardizem Cd 120mg Daily Anemia Ordered Iron Sat, Iron/TIBC, Ferritin, and Reticulocyte Count S/P Transfusion H/H Stable Cont. to monitor Pericardial effusion/cardiomegaly Cardiology Consulted (Dr. Portillo) - help appreciated ECHO (05/20/17): Diastolic Dysfunction Grade I-abnormal relaxation pattern. Trarce TR and MR Monitor DVT and GI prophylaxis Heparin/Protonix. Morphine 2 Q6H IV PRN for pain control Patient discussed with Attending Dillon Estrada - PGY1 <Arya Remy - Last Filed: 05/24/17 19:37> Objective - Vital Signs/Intake and Output Vital Signs (last 24 hours): Temp Pulse Resp BP Pulse Ox 98.3 F 88 20 156/81 H 95 05/24/17 15:00 05/24/17 15:00 05/24/17 15:00 05/24/17 15:00 05/24/17 15:00 Intake and Output: 05/24/17 05/25/17 18:59 06:59 Intake Total 1330 Balance 1330 - Medications Medications: Current Medications Albumin Human (Albumin Human 25% (12.5 Gm/50 Ml)) 12.5 gm IV Q4 [facility]ANIQUE Stop: 05/25/17 00:01 Last Admin: 05/24/17 12:00 Dose: 12.5 gm Albuterol/Ipratropium (Duoneb 3 Mg/0.5 Mg (3 Ml) Ud) 3 ml INH RQ6 PRN PRN Reason: Shortness of Breath Diltiazem HCl (Cardizem Cd) 120 mg PO DAILY [facility] Last Admin: 05/24/17 09:30 Dose: 120 mg Enalapril Maleate (Vasotec) 15 mg PO DAILY [facility] Erythromycin (Erythromycin) 1,000 mg PO ONCE ONE Stop: 05/24/17 23:01 Potassium Chloride/Dextrose/Sod Cl (Potassium Chl 20 Meq In D5-1/2ns) 1,000 mls @ 100 mls/hr IV .Q10H [facility] Last Admin: 05/24/17 16:45 Dose: 100 mls/hr Insulin Human Regular (Novolin R) 0 unit SC ACHS [facility] PRN Reason: Protocol Last Admin: 05/24/17 16:30 Dose: 8 unit Labetalol HCl (Trandate) 100 mg PO Q12H [facility] Last Admin: 05/24/17 07:51 Dose: 100 mg Neomycin Sulfate (Neomycin Tab) 1,000 mg PO ONCE ONE Stop: 05/24/17 23:01 Pantoprazole Sodium (Protonix Ec Tab) 40 mg PO DAILY [facility] Last Admin: 05/24/17 09:30 Dose: 40 mg Polyethylene Glycol (Miralax) 17 gm PO QAM [facility] Last Admin: 05/24/17 09:30 Dose: 17 gm - Labs Labs: 05/24/17 07:33 05/24/17 07:33 PT 15.8 SECONDS (9.7-12.2) H 05/22/17 07:41 INR 1.4 05/22/17 07:41 APTT 30 SECONDS (21-34) 05/22/17 07:41 Attending/Attestation - Attestation I have personally seen and examined this patient.: Yes I have fully participated in the care of the patient.: Yes I have reviewed all pertinent clinical information, including history, physical exam and plan: Yes Notes (Text): 05/24/17 19:34 Patient was seen and examined at 4:30 PM 05/24/17 352 B Exam, Assessment and Plan were gone over with the resident. I spoke with Surgeon Dr. Richard and he is planning Sigmoid Resection of Mass and Colostomy for morning 05/25/17. He has left consent form for patient to sign in the chart. At the time of my exam, I spoke with patient and she stated that she would like to wait for her Niece to come to the hospital before she would sign. I called the number for Niece in the chart and no voicemail could be left and there was no answer. I spoke with Bricklayer Supervisor Dr. Portillo to notify him concerning planned Surgery. Patient is cleared from Medicine Standpoint for planned surgery 05/25/17. Arya Remy D.O.
[2017-05-24 20:28] LABS: INR 1.4; PROTHROMBIN TIME 15.6 SECONDS (9.7-12.2)
--- NOTE | 2017-05-24 21:39 | CP.PCM.PN ---
Subjective - Date & Time of Evaluation Date of Evaluation: 05/24/17 Time of Evaluation: 10:00 - Subjective Subjective: No complaints Case. Discussed with Dr. Richard Objective - Vital Signs/Intake and Output Vital Signs (last 24 hours): Temp Pulse Resp BP Pulse Ox 98.3 F 88 20 156/81 H 95 05/24/17 15:00 05/24/17 15:00 05/24/17 15:00 05/24/17 15:00 05/24/17 15:00 Intake and Output: 05/24/17 05/25/17 18:59 06:59 Intake Total 1330 Balance 1330 - Medications Medications: Current Medications Albumin Human (Albumin Human 25% (12.5 Gm/50 Ml)) 12.5 gm IV Q4 [facility] Stop: 05/25/17 00:01 Last Admin: 05/24/17 12:00 Dose: 12.5 gm Albuterol/Ipratropium (Duoneb 3 Mg/0.5 Mg (3 Ml) Ud) 3 ml INH RQ6 PRN PRN Reason: Shortness of Breath Diltiazem HCl (Cardizem Cd) 120 mg PO DAILY [facility] Last Admin: 05/24/17 09:30 Dose: 120 mg Enalapril Maleate (Vasotec) 15 mg PO DAILY [facility] Erythromycin (Erythromycin) 1,000 mg PO ONCE ONE Stop: 05/24/17 23:01 Potassium Chloride/Dextrose/Sod Cl (Potassium Chl 20 Meq In D5-1/2ns) 1,000 mls @ 100 mls/hr IV .Q10H [facility] Last Admin: 05/24/17 16:45 Dose: 100 mls/hr Insulin Human Regular (Novolin R) 0 unit SC ACHS [facility] PRN Reason: Protocol Last Admin: 05/24/17 16:30 Dose: 8 unit Labetalol HCl (Trandate) 100 mg PO Q12H [facility] Last Admin: 05/24/17 07:51 Dose: 100 mg Neomycin Sulfate (Neomycin Tab) 1,000 mg PO ONCE ONE Stop: 05/24/17 23:01 Pantoprazole Sodium (Protonix Ec Tab) 40 mg PO DAILY [facility] Last Admin: 05/24/17 09:30 Dose: 40 mg Polyethylene Glycol (Miralax) 17 gm PO QAM [facility] Last Admin: 05/24/17 09:30 Dose: 17 gm - Labs Labs: 01/10/18 07:33 05/24/17 07:33 PT 15.6 SECONDS (9.7-12.2) H 05/24/17 20:16 INR 1.4 05/24/17 20:16 APTT 30 SECONDS (21-34) 05/22/17 07:41 - Head Exam Head Exam: ATRAUMATIC - Eye Exam Eye Exam: Normal appearance - ENT Exam ENT Exam: Mucous Membranes Dry - Respiratory Exam Respiratory Exam: NORMAL BREATHING PATTERN - Cardiovascular Exam Cardiovascular Exam: +S1, +S2 - GI/Abdominal Exam GI & Abdominal Exam: Normal Bowel Sounds Assessment and Plan (1) Colonic mass Assessment & Plan: near obstructing for surgery Status: Acute (2) Liver lesion Assessment & Plan: likely metastatic disease Status: Acute (3) Anemia Assessment & Plan: anemia w/u pending Status: Acute (4) Coagulopathy Assessment & Plan: nutritional Status: Acute
[2017-05-25] MEDS: Albumin Human 25% (12.5 gm/50 ml) IV SCH (00:30)
[2017-05-25] MEDS: Potassium Ch 20mEq in D5-1/2NS 1,000 ML IV SCH (03:30)
[2017-05-25 08:03] LABS: BASO % 0.6 % (0.0-2.0); EOS % 0.5 % (0.0-4.0); HEMOGLOBIN 8.7 g/dL (11.0-16.0); LYMPH # 1.5 K/uL (1.0-4.3); LYMPH % 16.9 % (20.0-40.0); MEAN CELL VOLUME 84.1 fL (81.0-99.0); MEAN CORPUSCULAR HEMOGLOBIN 27.6 pg (27.0-31.0); MEAN CORPUSCULAR HGB CONC 32.8 g/dL (33.0-37.0); MEAN PLATELET VOLUME 7.8 fL (7.2-11.7); MONO # 0.8 K/uL (0.0-0.8); MONO % 9.5 % (0.0-10.0); NEUT # 6.3 K/uL (1.8-7.0); NEUT % 72.5 % (50.0-75.0); NRBC % 0.1 % (0.0-2.0); RBC 3.15 Mil/uL (3.80-5.20); RED CELL DISTRIBUTION WIDTH 18.4 % (11.5-14.5); WHITE BLOOD COUNT 8.7 K/uL (4.8-10.8)
[2017-05-25] MEDS: (Novolin R) Insulin Human Regular 100 units/ml vial SC SCH ×2 (08:05→11:24)
[2017-05-25 08:06] LABS: INR 1.3; PROTHROMBIN TIME 14.5 SECONDS (9.7-12.2)
[2017-05-25] MEDS ORDERED: (Novolin 70/30) NPH/Regular 70/30 Units/ml 10 ml vial SC ONE (08:21)
[2017-05-25] MEDS ORDERED: Ciprofloxacin 200mg/100ml D5W 100 ML IVPB SCH ×2 (08:30→22:00)
[2017-05-25 08:45] LABS: ALBUMIN 2.8 g/dL (3.5-5.0); ALT/SGPT 21 U/L (9-52); AST/SGOT 22 U/L (14-36); BLOOD UREA NITROGEN 6 mg/dL (7-17); CALCIUM 7.6 mg/dl (8.6-10.4); GFR AFRICAN-AMERICAN > 60; GFR NON-AFRICAN AMERICAN > 60
[2017-05-25 08:54] LABS: ALB/GLOB RATIO 0.9 (1.0-2.1)
[2017-05-25] MEDS ORDERED: Lactated Ringer's 1,000 ML IV ONE ×2 (08:59→19:09)
[2017-05-25] MEDS ORDERED: ceFAZolin IV 1 gm in Dextrose 0 GM/0 ML BAG IVPB ONE (09:10)
[2017-05-25] MEDS ORDERED: ceFAZolin IV 2 gm in Dextrose 0 GM/0 ML BAG IVPB ONE (09:10)
[2017-05-25] MEDS: Pantoprazole 40 mg EC Tab PO SCH (09:32)
[2017-05-25] MEDS: POLYETHYLENE GLYCOL 3350 17 GM/Dose PACKET PO SCH (09:32)
[2017-05-25] MEDS ORDERED: Sodium Chloride 0.9% 1,000 ML IV ONE ×3 (10:06→10:20)
[2017-05-25] MEDS ORDERED: Midazolam 2 MG/2 ML VIAL ONE (10:07)
[2017-05-25] MEDS ORDERED: Etomidate 20 mg/10ml Inj IV ONE (10:08)
[2017-05-25] MEDS ORDERED: Rocuronium 10 mg/ml (5 ml) ONE ×2 (10:08→12:12)
[2017-05-25] MEDS ORDERED: Succinylcholine Chloride 20 mg/ml Syr (5 ml) IV ONE (10:08)
[2017-05-25] MEDS ORDERED: metroNIDAZOLE IV 500 mg/100 ml 500 MG/100 ML BAG ONE (10:10)
[2017-05-25] MEDS ORDERED: Ciprofloxacin 400mg/200ml D5W 400 MG/200 ML BAG IVPB ONE (10:16)
[2017-05-25] MEDS ORDERED: ePHEDrine 50 mg/ml Inj ONE (10:24)
[2017-05-25] MEDS ORDERED: Phenylephrine 10 mg/ml Inj ONE (10:24)
--- NOTE | 2017-05-25 12:00 | PN ---
DATE: LOCATION: [facility], bed B. SUBJECTIVE: This is an 86-year-old female, seen and examined early in rounds today without significant clinical changes or reported active bleeding. Mild diarrhea with postobstructive syndrome most likely. It has to be mentioned that this case discussed at length again with the pathology staff as well as the surgical scrub technician, Dr. Richard. Most recent lab results showed low hemoglobin of 8.7, hematocrit 26.5 with normal platelet count with PT 14.5, but low sodium 127 and low BUN and creatinine. Blood glucose level 255 with low calcium 7.6 with low albumin 2.8. Total protein 6.0. PHYSICAL EXAMINATION: GENERAL: A 86-year-old female. VITAL SIGNS: Afebrile with pulse of 80, respiratory rate 20 to 22 with blood pressure 140/74. HEENT: Showed pale dry oral mucous membrane. Nonicteric sclerae. LUNGS: Few scattered mild crepitation. Decreased air entry at bases. HEART: Positive S1 and S2. ABDOMEN: Soft. Bowel sounds are present. No mass or organomegaly. No rebound tenderness or guarding, but mild left-sided tenderness. EXTREMITIES: Without significant edema, clubbing or cyanosis. NEUROLOGIC: No reported new neurological deficits, sensory or motor. IMPRESSION: 1. Left-sided colon mass lesion, most likely cancer of the colon. 2. Anemia. 3. Hepatic metastatic disease, discussed with Dr. Bright at length. 4. Postobstructive diarrhea by recent history. 5. Known history of hypertension. 6. Electrolyte imbalance with hyponatremia, hypocalcemia. 7. Malnutrition with hypoalbuminemia. SUGGESTION: 1. Agree with your plan. 2. The patient for potential OR today as per Dr. Richard. 3. Further recommendation to follow. Sp Leblanc MD
[2017-05-25] MEDS: Lactated Ringer's 1,000 ML IV ONE ×3 (12:15→15:40)
--- NOTE | 2017-05-25 13:59 | PCM.SURG1 ---
Surgeon's Initial Post Op Note - Surgeon's Notes Surgeon: Dr. Joe Richard Rim Turning Machine Operator: Dr. Kellie Lynn PGY2 Type of Anesthesia: General Endo Pre-Operative Diagnosis: obstructing sigmoid mass Operative Findings: large sigmoid mass adhering to bladder and adjacent colon, dilated colon Post-Operative Diagnosis: large sigmoid mass Operation Performed: exploratory laparatomy, diverting colostomy, liver biopsy Specimen/Specimens Removed: liver biopsy x 3 Estimated Blood Loss: EBL {In ML}: 100 Blood Products Given: PRBC Drains Used: Jah Post-Op Condition: Poor Date of Surgery/Procedure: 05/25/17 Time of Surgery/Procedure: 10:00
[2017-05-25 14:23] LABS: BODY FLUID TYPE PERITONEAL
[2017-05-25] MEDS ORDERED: (Novolog Mix 70/30) Insulin Aspart/Insulin Aspar 100 units/ml SC SCH (14:45)
--- NOTE | 2017-05-25 15:02 | CP.PCM.CON ---
Addendum entered and electronically signed by Carolina Rico DO 05/25/17 18:42: addendum: patient had diverting colostomy with partial sigmoid mass resection. 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 bilateral renal cysts. small bilateral pleural effusion and small pericardial effusion. small hiatal hernia. small diverticulum of the herniated stomach. 05/20 adominal XRAY: moderate constipation 05/22 Endoscopy: partially obstructing tumor in the sigmoid colon with biopsy Original Note: <Carolina Rico - Last Filed: 05/25/17 15:09> History of Present Illness - History of Present Illness History of Present Illness: Consult Note Dr. Remy 86 year old female with a past medical history of T2DM and HTN who presents with diffusely radiating, 10/10, sharp LLQ abdominal pain for one month. Pain is worse with eating. Patient has non-bloody diarrhea 30-40 min post meals. Patient has tried Pepto-Bismol and Immodium to relieve her symptoms without success. Patient had 30lbs weight loss in the past 7 months. She denies any fevers, chills, nausea, or vomiting. She does admit to a decrease in her urinary frequency, but denies any hematuria, dyuria, or back pain. Patient admits to abdominal pain, NBNB Diarrhea, bloating, dec. urinary frequency. Patient denies fever, chills, chest pain, SOB, nausea, vomiting, constipation, generalized weakness, LH, hematuria, dysuria, PMH: T2DM, HTN SHx: hysterectomy (30 years ago) FamHx: Unknown. Of note, patient had sister in law who post colonoscopy from perforation. Social Hx: denies tobacco, alcohol, or illicit drug use Allergies: NKDA PMD: Dr. Leigh Pineda Patient was brought to ICU s/p Exploratory laparotomy, diverting colostomy, liver biopsy x 3, obstructing sigmoid mass resection for closer management (POD #0) 05/25/17. Jah # 1 and #2 inserted. 1 u PRBCs given in OR, patient urine output is minimal. Past Patient History - Past Medical History & Family History Past Medical History?: Yes - Past Social History Smoking Status: Never Smoked - CARDIAC Hx Hypertension: Yes - ENDOCRINE/METABOLIC Hx Diabetes Mellitus Type 2: Yes - MUSCULOSKELETAL/RHEUMATOLOGICAL Hx Falls: No - PSYCHIATRIC Hx Substance Use: No - SURGICAL HISTORY Hx Surgeries: No - ANESTHESIA Hx Anesthesia: No Hx Anesthesia Reactions: No Meds Allergies/Adverse Reactions: Allergies Allergy/AdvReac Type Severity Reaction Status Date / Time aspirin AdvReac Verified 11/03/16 12:35 - Medications Medications: Current Medications Albuterol/Ipratropium (Duoneb 3 Mg/0.5 Mg (3 Ml) Ud) 3 ml INH RQ6 PRN PRN Reason: Shortness of Breath Hydromorphone HCl (Dilaudid) 0.5 mg IVP Q10M PRN PRN Reason: Pain, moderate (4-7) Stop: 05/25/17 16:01 Potassium Chloride/Dextrose/Sod Cl (Potassium Chl 20 Meq In D5-1/2ns) 1,000 mls @ 100 mls/hr IV .Q10H [facility] Last Admin: 05/25/17 03:30 Dose: 100 mls/hr Sodium Chloride (Sodium Chloride 0.9%) 1,000 mls @ 75 mls/hr IV .[id number] [facility] Metronidazole (Flagyl) 250 mg in 50 mls @ 50 mls/hr IVPB Q8H [facility] Insulin Aspart (Novolog Mix 70/30 (70/30 Units/Ml)) 0 units SC Q4H YANIQUE PRN Reason: Protocol Results - Vital Signs Recent Vital Signs: Last Vital Signs Temp 96.7 F L 05/25/17 13:53 Pulse 92 H 05/25/17 14:00 Resp 13 05/25/17 13:53 BP 129/74 05/25/17 13:53 Pulse Ox 100 05/25/17 13:53 - Labs Result Diagrams: 05/25/17 07:51 05/25/17 07:51 Labs: Laboratory Results - last 24 hr 05/24/17 05/24/17 05/24/17 09:13 16:17 20:16 WBC RBC Hgb Hct MCV MCH MCHC RDW Plt Count MPV Neut % (Auto) Lymph % (Auto) Garvin % (Auto) Eos % (Auto) Baso % (Auto) Neut # Lymph # Garvin # Eos # Baso # PT 15.6 H INR 1.4 APTT Sodium Potassium Chloride Carbon Dioxide Anion Gap BUN Creatinine Est GFR ( Amer) Est GFR (Non-Af Amer) POC Glucose (mg/dL) 308 H Random Glucose Calcium Total Bilirubin AST ALT Alkaline Phosphatase Total Protein Albumin Globulin Albumin/Globulin Ratio Fluid Source Blood Type O POSITIVE Antibody Screen Negative 05/24/17 05/25/17 05/25/17 21:46 00:08 07:33 WBC RBC Hgb Hct MCV MCH MCHC RDW Plt Count MPV Neut % (Auto) Lymph % (Auto) Garvin % (Auto) Eos % (Auto) Baso % (Auto) Neut # Lymph # Garvin # Eos # Baso # PT INR APTT 29 Sodium Potassium Chloride Carbon Dioxide Anion Gap BUN Creatinine Est GFR ( Amer) Est GFR (Non-Af Amer) POC Glucose (mg/dL) 199 H 255 H Random Glucose Calcium Total Bilirubin AST ALT Alkaline Phosphatase Total Protein Albumin Globulin Albumin/Globulin Ratio Fluid Source Blood Type Antibody Screen 05/25/17 05/25/17 05/25/17 07:51 07:51 07:51 WBC 8.7 RBC 3.15 L Hgb 8.7 L Hct 26.5 L MCV 84.1 MCH 27.6 MCHC 32.8 L RDW 18.4 H Plt Count 315 MPV 7.8 Neut % (Auto) 72.5 Lymph % (Auto) 16.9 L Garvin % (Auto) 9.5 Eos % (Auto) 0.5 Baso % (Auto) 0.6 Neut # 6.3 Lymph # 1.5 Garvin # 0.8 Eos # 0.0 Baso # 0.0 PT 14.5 H INR 1.3 APTT 31 Sodium 127 L Potassium 3.9 Chloride 98 Carbon Dioxide 25 Anion Gap 7 L BUN 6 L Creatinine 0.5 L Est GFR ( Amer) > 60 Est GFR (Non-Af Amer) > 60 POC Glucose (mg/dL) Random Glucose 249 H Calcium 7.6 L Total Bilirubin 0.9 AST 22 ALT 21 Alkaline Phosphatase 115 Total Protein 6.0 L Albumin 2.8 L Globulin 3.1 Albumin/Globulin Ratio 0.9 L Fluid Source Blood Type Antibody Screen 05/25/17 05/25/17 14:22 14:34 WBC RBC Hgb Hct MCV MCH MCHC RDW Plt Count MPV Neut % (Auto) Lymph % (Auto) Garvin % (Auto) Eos % (Auto) Baso % (Auto) Neut # Lymph # Garvin # Eos # Baso # PT INR APTT Sodium Potassium Chloride Carbon Dioxide Anion Gap BUN Creatinine Est GFR ( Amer) Est GFR (Non-Af Amer) POC Glucose (mg/dL) 262 H Random Glucose Calcium Total Bilirubin AST ALT Alkaline Phosphatase Total Protein Albumin Globulin Albumin/Globulin Ratio Fluid Source Peritoneal Blood Type Antibody Screen Assessment & Plan - Assessment and Plan (Free Text) Assessment: 86F with past medical history of T2DM, HTN with abdominal pain found to have a sigmoid mass s/p Exploratory laparotomy, diverting colostomy, liver biopsy x 3, obstructing sigmoid mass resection for closer management (POD #0) 05/25/17. Neuro: Pain: 0.5mg IVP Q10min PRN Cardio: Hx HTN monitor vitals Pulm: duoneb 3cc INH RQ6H PRN Endo: hx T2DM hypothermia, glen hugger Insulin Aspart SC Q4H Heme/onc: sigmoid mass s/p ex lap, diverting colostomy, liver biopsy and sigmoid mass resection. nephro: strict I/Os 05/25 07:51 BUN/Cr 6/0.5 ID: metronidazole 250mg IVPB Q8H Prophylaxis: NS @75cc/hr d/w Dr. Jonel Rico DO PGY1 - Date & Time Date: 05/25/17 Time: 15:12 <Rogelio Remy - Last Filed: 05/26/17 17:40> Meds - Medications Medications: Current Medications Albuterol/Ipratropium (Duoneb 3 Mg/0.5 Mg (3 Ml) Ud) 3 ml INH RQ6 PRN PRN Reason: Shortness of Breath Metronidazole (Flagyl) 250 mg in 50 mls @ 50 mls/hr IVPB Q8H [facility] Last Admin: 05/26/17 10:22 Dose: 50 mls/hr Ceftriaxone Sodium 1 gm/ (Sodium Chloride) 100 mls @ 100 mls/hr IVPB Q12H [facility] Last Admin: 05/26/17 03:57 Dose: 100 mls/hr Sodium Bicarbonate 75 meq/ (Sodium Chloride) 1,075 mls @ 50 mls/hr IV .[id number] [facility] Last Admin: 05/26/17 13:25 Dose: 50 mls/hr Insulin Aspart (Novolog) 0 unit SC Q6H [facility] PRN Reason: Protocol Pantoprazole Sodium (Protonix Inj) 40 mg IVP Q12H [facility] Last Admin: 05/26/17 05:59 Dose: 40 mg Results - Vital Signs Recent Vital Signs: Last Vital Signs Temp 99.5 F 05/26/17 16:00 Pulse 103 H 05/26/17 16:00 Resp 18 05/26/17 16:00 BP 131/73 05/26/17 16:00 Pulse Ox 98 05/26/17 16:00 - Labs Result Diagrams: 05/26/17 06:11 05/26/17 06:11 Labs: Laboratory Results - last 24 hr 05/25/17 05/25/17 05/26/17 20:46 23:44 04:08 WBC RBC Hgb Hct MCV MCH MCHC RDW Plt Count MPV Neut % (Auto) Lymph % (Auto) Garvin % (Auto) Eos % (Auto) Baso % (Auto) Neut # Lymph # Garvin # Eos # Baso # Neutrophils % (Manual) Band Neutrophils % Lymphocytes % (Manual) Monocytes % (Manual) Nucleated RBC % Toxic Granulation Platelet Estimate Anisocytosis (manual) Puncture Site pCO2 pO2 HCO3 ABG pH ABG Total CO2 ABG O2 Saturation ABG Base Excess ABG Hemoglobin ABG Carboxyhemoglobin POC ABG HHb (Measured) ABG Methemoglobin Candelario Test ABG Potassium A-a O2 Difference Respiratory Index Hgb O2 Saturation Glucose Lactate Vent Mode Mechanical Rate FiO2 Tidal Volume PEEP Sodium Potassium Chloride Carbon Dioxide Anion Gap BUN Creatinine Est GFR ( Amer) Est GFR (Non-Af Amer) POC Glucose (mg/dL) 207 H 172 H 112 H Random Glucose Serum Osmolality Lactic Acid Calcium Phosphorus Magnesium Total Bilirubin AST ALT Alkaline Phosphatase Total Protein Albumin Globulin Albumin/Globulin Ratio Arterial Blood Potassium Urine Osmolality Ur Random Creatinine Ur Random Sodium 05/26/17 05/26/17 05/26/17 05:06 06:11 06:11 WBC 14.6 H D RBC 3.86 Hgb 10.8 L Hct 32.8 L MCV 84.9 MCH 28.0 MCHC 33.0 RDW 18.2 H Plt Count 294 MPV 7.7 Neut % (Auto) 85.2 H Lymph % (Auto) 9.7 L Garvin % (Auto) 5.0 Eos % (Auto) 0.0 Baso % (Auto) 0.1 Neut # 12.4 H Lymph # 1.4 Garvin # 0.7 Eos # 0.0 Baso # 0.0 Neutrophils % (Manual) 67 Band Neutrophils % 21 H* Lymphocytes % (Manual) 7 L Monocytes % (Manual) 5 Nucleated RBC % 1 H Toxic Granulation Present Platelet Estimate Normal Anisocytosis (manual) Moderate Puncture Site R bra pCO2 33 L pO2 105 H HCO3 22.5 ABG pH 7.41 ABG Total CO2 21.9 L ABG O2 Saturation 98.8 H ABG Base Excess -3.1 L ABG Hemoglobin 10.8 L ABG Carboxyhemoglobin 1.8 H POC ABG HHb (Measured) 1.2 ABG Methemoglobin 1.7 Candelario Test Na ABG Potassium A-a O2 Difference 210.0 Respiratory Index 2.0 Hgb O2 Saturation 95.3 Glucose Lactate Vent Mode Prvc Mechanical Rate 18 FiO2 50.0 Tidal Volume 450 PEEP 5 Sodium Potassium Chloride Carbon Dioxide Anion Gap BUN Creatinine Est GFR ( Amer) Est GFR (Non-Af Amer) POC Glucose (mg/dL) Random Glucose Serum Osmolality Lactic Acid 2.0 Calcium Phosphorus Magnesium Total Bilirubin AST ALT Alkaline Phosphatase Total Protein Albumin Globulin Albumin/Globulin Ratio Arterial Blood Potassium Urine Osmolality Ur Random Creatinine Ur Random Sodium 05/26/17 05/26/17 05/26/17 06:11 08:41 11:17 WBC RBC Hgb Hct MCV MCH MCHC RDW Plt Count MPV Neut % (Auto) Lymph % (Auto) Garvin % (Auto) Eos % (Auto) Baso % (Auto) Neut # Lymph # Garvin # Eos # Baso # Neutrophils % (Manual) Band Neutrophils % Lymphocytes % (Manual) Monocytes % (Manual) Nucleated RBC % Toxic Granulation Platelet Estimate Anisocytosis (manual) Puncture Site pCO2 pO2 HCO3 ABG pH ABG Total CO2 ABG O2 Saturation ABG Base Excess ABG Hemoglobin ABG Carboxyhemoglobin POC ABG HHb (Measured) ABG Methemoglobin Candelario Test ABG Potassium A-a O2 Difference Respiratory Index Hgb O2 Saturation Glucose Lactate Vent Mode Mechanical Rate FiO2 Tidal Volume PEEP Sodium 131 L Potassium 4.2 Chloride 103 Carbon Dioxide 22 Anion Gap 10 BUN 11 Creatinine 0.9 Est GFR ( Amer) > 60 Est GFR (Non-Af Amer) 60 POC Glucose (mg/dL) 136 H 190 H Random Glucose 113 H Serum Osmolality Lactic Acid Calcium 7.1 L Phosphorus 3.0 Magnesium 1.3 L Total Bilirubin 1.1 AST 71 H D ALT 19 Alkaline Phosphatase 101 Total Protein 4.7 L Albumin 2.3 L Globulin 2.5 Albumin/Globulin Ratio 0.9 L Arterial Blood Potassium Urine Osmolality Ur Random Creatinine Ur Random Sodium 05/26/17 05/26/17 05/26/17 11:31 15:58 16:43 WBC RBC Hgb Hct MCV MCH MCHC RDW Plt Count MPV Neut % (Auto) Lymph % (Auto) Garvin % (Auto) Eos % (Auto) Baso % (Auto) Neut # Lymph # Garvin # Eos # Baso # Neutrophils % (Manual) Band Neutrophils % Lymphocytes % (Manual) Monocytes % (Manual) Nucleated RBC % Toxic Granulation Platelet Estimate Anisocytosis (manual) Puncture Site Rr pCO2 48 H pO2 116 H HCO3 19.9 L ABG pH 7.25 L ABG Total CO2 22.5 ABG O2 Saturation 99.0 H ABG Base Excess -6.4 L ABG Hemoglobin ABG Carboxyhemoglobin POC ABG HHb (Measured) ABG Methemoglobin Candelario Test Pos ABG Potassium 4.3 A-a O2 Difference 109.0 Respiratory Index 0.9 Hgb O2 Saturation Glucose 187 H Lactate 1.1 Vent Mode Mechanical Rate FiO2 40.0 Tidal Volume PEEP Sodium 133.0 Potassium Chloride 106.0 Carbon Dioxide Anion Gap BUN Creatinine Est GFR ( Amer) Est GFR (Non-Af Amer) POC Glucose (mg/dL) 188 H Random Glucose Serum Osmolality 290 Lactic Acid Calcium Phosphorus Magnesium Total Bilirubin AST ALT Alkaline Phosphatase Total Protein Albumin Globulin Albumin/Globulin Ratio Arterial Blood Potassium 4.3 Urine Osmolality Ur Random Creatinine Ur Random Sodium 05/26/17 16:47 WBC RBC Hgb Hct MCV MCH MCHC RDW Plt Count MPV Neut % (Auto) Lymph % (Auto) Garvin % (Auto) Eos % (Auto) Baso % (Auto) Neut # Lymph # Garvin # Eos # Baso # Neutrophils % (Manual) Band Neutrophils % Lymphocytes % (Manual) Monocytes % (Manual) Nucleated RBC % Toxic Granulation Platelet Estimate Anisocytosis (manual) Puncture Site pCO2 pO2 HCO3 ABG pH ABG Total CO2 ABG O2 Saturation ABG Base Excess ABG Hemoglobin ABG Carboxyhemoglobin POC ABG HHb (Measured) ABG Methemoglobin Candelario Test ABG Potassium A-a O2 Difference Respiratory Index Hgb O2 Saturation Glucose Lactate Vent Mode Mechanical Rate FiO2 Tidal Volume PEEP Sodium Potassium Chloride Carbon Dioxide Anion Gap BUN Creatinine Est GFR ( Amer) Est GFR (Non-Af Amer) POC Glucose (mg/dL) Random Glucose Serum Osmolality Lactic Acid Calcium Phosphorus Magnesium Total Bilirubin AST ALT Alkaline Phosphatase Total Protein Albumin Globulin Albumin/Globulin Ratio Arterial Blood Potassium Urine Osmolality 482 Ur Random Creatinine 192.6 Ur Random Sodium 33 Assessment & Plan - Assessment and Plan (Free Text) Plan: Above patient seen and examined at bedside. -Hypoxic respiratory failure -continue IVF to improve renal output -f/u post op labs
[2017-05-25 15:30] LABS: BASO % 0.2 % (0.0-2.0); EOS % 0.2 % (0.0-4.0); LYMPH # 1.1 K/uL (1.0-4.3); LYMPH % 13.6 % (20.0-40.0); MEAN CORPUSCULAR HGB CONC 32.6 g/dL (33.0-37.0); MONO # 0.3 K/uL (0.0-0.8); MONO % 3.3 % (0.0-10.0); NEUT # 6.5 K/uL (1.8-7.0); NEUT % 82.7 % (50.0-75.0); RBC 4.25 Mil/uL (3.80-5.20); RED CELL DISTRIBUTION WIDTH 18.5 % (11.5-14.5); WHITE BLOOD COUNT 7.8 K/uL (4.8-10.8)
[2017-05-25 15:32] LABS: HEMOGLOBIN 11.9 g/dL (11.0-16.0)
[2017-05-25 15:33] LABS: BF GROSS APPEARANCE SL CLOUDY (CLEAR); BODY FLUID MONO/MACROPHAGE 1 % (0-0); BODY FLUID TOTAL COUNT 100 (0-0)
[2017-05-25] MEDS ORDERED: Albumin Human 25% (12.5 gm/50 ml) IV ONE (15:50)
--- NOTE | 2017-05-25 15:51 | RAD ---
HISTORY: et tube COMPARISON: 05/19/2017 FINDINGS: LUNGS: Fade patchy opacities 8 mid lung zone and possibly left lung base noted. Hemidiaphragm is less discernible now than before. PLEURA: Possible small left pleural effusion. , no pneumothorax apparent. CARDIOVASCULAR: Mild cardiomegaly. Pulmonary vasculature probably top-normal aortic knob arteriovascular calcification-dense OSSEOUS STRUCTURES: Thoracic spondylosis. Bilateral mild shoulder arthrosis VISUALIZED UPPER ABDOMEN: Normal. OTHER FINDINGS: Endotracheal tube tip for its tip 5 cm from fadumo -clavicle level The tube coursing over expected stomach-tip beyond inferior field of view IMPRESSION: Endotracheal tube and enteric tube - satisfactory. Interval patchy opacities -compatible with infiltrate possible small left pleural effusion
[2017-05-25 15:53] LABS: ARTERIAL BLOOD GAS HCO3 21.2 mmol/L (21-28); ARTERIAL BLOOD GAS O2 SAT 99.6 % (95-98); ARTERIAL BLOOD GAS PCO2 41 mm/Hg (35-45); ARTERIAL BLOOD GAS PH 7.32 (7.35-7.45); ARTERIAL BLOOD GAS PO2 215 mm/Hg (80-100); ARTERIAL BLOOD GAS TCO2 22.4 mmol/L (22-28)
[2017-05-25 16:05] LABS: ALB/GLOB RATIO 0.9 (1.0-2.1); ALBUMIN 2.3 g/dL (3.5-5.0); ALT/SGPT 22 U/L (9-52); AST/SGOT 38 U/L (14-36); BLOOD UREA NITROGEN 6 mg/dL (7-17); CALCIUM 6.9 mg/dl (8.6-10.4); GFR AFRICAN-AMERICAN > 60; GFR NON-AFRICAN AMERICAN > 60; MAGNESIUM 1.3 mg/dL (1.6-2.3)
--- NOTE | 2017-05-25 16:07 | CP.PCM.PN ---
Subjective - Date & Time of Evaluation Date of Evaluation: 05/25/17 Time of Evaluation: 16:00 - Subjective Subjective: s/p surgery Objective - Vital Signs/Intake and Output Vital Signs (last 24 hours): Temp Pulse Resp BP Pulse Ox 97 F L 92 H 16 102/60 100 05/25/17 15:15 05/25/17 15:15 05/25/17 15:15 05/25/17 15:15 05/25/17 15:15 Intake and Output: 05/25/17 05/25/17 06:59 18:59 Intake Total 1989 325 Output Total 25 Balance 1989 300 - Medications Medications: Current Medications Albuterol/Ipratropium (Duoneb 3 Mg/0.5 Mg (3 Ml) Ud) 3 ml INH RQ6 PRN PRN Reason: Shortness of Breath Hydromorphone HCl (Dilaudid) 0.5 mg IVP Q10M PRN PRN Reason: Pain, moderate (4-7) Stop: 05/25/17 16:01 Hydromorphone HCl (Dilaudid) 0.5 mg IVP Q4H PRN PRN Reason: Pain, severe (8-10) Potassium Chloride/Dextrose/Sod Cl (Potassium Chl 20 Meq In D5-1/2ns) 1,000 mls @ 100 mls/hr IV .Q10H [facility] Last Admin: 05/25/17 03:30 Dose: 100 mls/hr Sodium Chloride (Sodium Chloride 0.9%) 1,000 mls @ 75 mls/hr IV .[id number] [facility] Metronidazole (Flagyl) 250 mg in 50 mls @ 50 mls/hr IVPB Q8H [facility] Ceftriaxone Sodium 1 gm/ (Sodium Chloride) 100 mls @ 100 mls/hr IVPB Q12H [facility] Insulin Aspart (Novolog Mix 70/30 (70/30 Units/Ml)) 0 units SC Q4H YANIQUE PRN Reason: Protocol - Labs Labs: 05/25/17 15:26 05/25/17 15:26 PT 14.5 SECONDS (9.7-12.2) H 05/25/17 07:51 INR 1.3 05/25/17 07:51 APTT 31 SECONDS (21-34) 05/25/17 07:51 - Head Exam Head Exam: ATRAUMATIC - Eye Exam Eye Exam: Normal appearance - ENT Exam ENT Exam: Mucous Membranes Dry - Respiratory Exam Respiratory Exam: NORMAL BREATHING PATTERN - Cardiovascular Exam Cardiovascular Exam: +S1, +S2 - GI/Abdominal Exam GI & Abdominal Exam: Normal Bowel Sounds Assessment and Plan (1) Colonic mass Assessment & Plan: s/p surgery f/u official path Status: Acute (2) Liver lesion Assessment & Plan: s/p biopsy f/u path Status: Acute (3) Anemia Assessment & Plan: chronic disease s/p PRBC transfusion Status: Acute (4) Coagulopathy Assessment & Plan: nutritional Status: Acute
[2017-05-25] MEDS: Sodium Chloride 0.9% 1,000 ML IV SCH ×2 (16:38→17:51)
[2017-05-25] MEDS: (Novolog) Insulin Aspart, Recombinant 100 u/ml 10 ml vial SC SCH ×2 (16:59→21:06)
[2017-05-25] MEDS ORDERED: diltiaZEM 120 mg/24 Hours CD Cap PO SCH (17:00)
[2017-05-25] MEDS: metroNIDAZOLE IV 250mg/50 ml 250 MG/50 ML BAG IVPB SCH (18:53)
--- NOTE | 2017-05-25 20:53 | CP.PCM.PN ---
Subjective - Date & Time of Evaluation Date of Evaluation: 05/25/17 Time of Evaluation: 07:05 - Subjective Subjective: Patient seen and examined at bedside. No overnight events reported. Patient denies any abdominal pain, but does complain of abdominal discomfort. She is having bowel movements. Patient complains of being tired and not having a chance to rest. Denies any chest pain, SOB, nausea, vomiting, or any urinary symptoms. She is aware of the surgery. Objective - Vital Signs/Intake and Output Vital Signs (last 24 hours): Temp Pulse Resp BP Pulse Ox 97 F L 95 H 15 139/77 100 05/25/17 16:00 05/25/17 19:30 05/25/17 19:30 05/25/17 19:15 05/25/17 19:30 Intake and Output: 05/25/17 05/26/17 18:59 06:59 Intake Total 625 100 Output Total 330 20 Balance 295 80 - Medications Medications: Current Medications Albuterol/Ipratropium (Duoneb 3 Mg/0.5 Mg (3 Ml) Ud) 3 ml INH RQ6 PRN PRN Reason: Shortness of Breath Hydromorphone HCl (Dilaudid) 0.5 mg IVP Q4H PRN PRN Reason: Pain, severe (8-10) Sodium Chloride (Sodium Chloride 0.9%) 1,000 mls @ 75 mls/hr IV .[id number] [facility] Last Admin: 05/25/17 17:51 Dose: Not Given Metronidazole (Flagyl) 250 mg in 50 mls @ 50 mls/hr IVPB Q8H [facility] Last Admin: 05/25/17 18:53 Dose: 50 mls/hr Ceftriaxone Sodium 1 gm/ (Sodium Chloride) 100 mls @ 100 mls/hr IVPB Q12H [facility] Last Admin: 05/25/17 16:59 Dose: 100 mls/hr Sodium Chloride (Sodium Chloride 0.9%) 1,000 mls @ 100 mls/hr IV .Q10H [facility] Last Admin: 05/25/17 16:38 Dose: 100 mls/hr Insulin Aspart (Novolog) 0 unit SC Q4H YANIQUE PRN Reason: Protocol Last Admin: 05/25/17 16:59 Dose: 3 unit Pantoprazole Sodium (Protonix Inj) 40 mg IVP Q12H [facility] Last Admin: 05/25/17 19:41 Dose: 40 mg - Labs Labs: 05/25/17 15:26 05/25/17 15:26 PT 14.5 SECONDS (9.7-12.2) H 05/25/17 07:51 INR 1.3 05/25/17 07:51 APTT 31 SECONDS (21-34) 05/25/17 07:51 - Additional Findings Additional findings: - Constitutional Appears: Non-toxic, Chronically Ill - Head Exam Head Exam: NORMAL INSPECTION - Eye Exam Eye Exam: Normal appearance - ENT Exam ENT Exam: Mucous Membranes Moist - Neck Exam Neck Exam: Full ROM - Respiratory Exam Respiratory Exam: Clear to Ausculation Bilateral, NORMAL BREATHING PATTERN - Cardiovascular Exam Cardiovascular Exam: REGULAR RHYTHM - GI/Abdominal Exam GI & Abdominal Exam: Distended (Improved), Soft, Normal Bowel Sounds, Absent: Tenderness - Extremities Exam Extremities Exam: Full ROM - Back Exam Back Exam: NORMAL INSPECTION - Neurological Exam Neurological Exam: Awake, Oriented x3 - Psychiatric Exam Psychiatric exam: Normal Mood - Skin Skin Exam: Dry Assessment and Plan - Assessment and Plan (Free Text) Assessment: 86 year old female with a PMHx of DMII, and HTN who presented with diffusely radiating, 10/10, sharp LLQ abdominal pain x 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 Bilateral renal cysts with large right upper pole renal cyst. Small bilateral pleural effusion and small pericardial effusion. Small hiatal hernia. Possible small diverticulum of the herniated stomach Plan: Sigmoid colon mass with METS. POD # 0 of exploratory laparatomy, diverting colostomy, liver biopsy. parts of mass could not be resected due to infiltration into the bladder Biopsy of liver taken. F/U on Path Sent to ICU post surgery with ET tube. DxE8=388%, AO=981, RR=15, PEEP = 5 -CT-Abd/Pelvis on admission showed 8.6 cm sigmoid mass with extensive hepatic metastasis. Bilateral renal cysts with large right upper pole renal cyst. Small bilateral pleural effusion and small pericardial effusion. Small hiatal hernia. Possible small diverticulum of the herniated stomach Colonscopy (05/22/17): Non-bleeding external and internal hemorrhoids. 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 Biopsied F/U on Pathology report from biopsy. Morphine 2 Q6H IV PRN for pain control Barium Enema (05/23/2017): Contrast flowed freely through the rectum to the level of the distal sigmoid colon. At the level of the distal sigmoid colon, contrast slowly traversed through a very thin and irregular channel to the level of the mid sigmoid at the site of the known sigmoid carcinoma. Contrast did not flow freely past this level. Exam was subsequently terminated. These findings were concerning for a near complete obstruction of the bowel lumen from the adjacent obstructing tumor. CXR (Post-Op): Endotracheal tube and enteric tube - satisfactory. Interval patchy opacities -compatible with infiltrate possible small left pleural effusion CEA elevated @ 11.6. (Normal = 0-3.0) GI consult Dr Foster ,appreciated Dr Bright oncology consult - Recs appreciated Surgery consult Dr Richard-appreciated Flagly 250mg IV Q8H Pleural Effusion found on CXR Consider Repeat CXR tomorrow Consider Starting Antibiotics DM- Monitor sugar ISS (High) Hypertension Cont. Labetolol 100mg Q12H Enalapril 10mg Daily increased to 15mg Started Cardizem Cd 120mg Daily Anemia Ordered Iron Sat, Iron/TIBC, Ferritin, and Reticulocyte Count S/P Transfusion H/H Stable Cont. to monitor Pericardial effusion/cardiomegaly Cardiology Consulted (Dr. Portillo) - help appreciated ECHO (05/20/17): Diastolic Dysfunction Grade I-abnormal relaxation pattern. Trarce TR and MR Monitor DVT and GI prophylaxis Heparin/Protonix. Morphine 2 Q6H IV PRN for pain control Patient discussed with Attending Dillon Estrada - PGY1
[2017-05-26] MEDS: (Novolog) Insulin Aspart, Recombinant 100 u/ml 10 ml vial SC SCH ×5 (01:09→23:43)
[2017-05-26] MEDS: metroNIDAZOLE IV 250mg/50 ml 250 MG/50 ML BAG IVPB SCH ×3 (01:12→17:54)
[2017-05-26] MEDS: Sodium Chloride 0.9% 1,000 ML IV SCH ×2 (03:56→03:57)
[2017-05-26 06:01] LABS: ARTERIAL BLOOD GAS HCO3 22.5 mmol/L (21-28); ARTERIAL BLOOD GAS HEMOGLOBIN 10.8 g/dL (11.7-17.4); ARTERIAL BLOOD GAS O2 SAT 98.8 % (95-98); ARTERIAL BLOOD GAS PCO2 33 mm/Hg (35-45); ARTERIAL BLOOD GAS PH 7.41 (7.35-7.45); ARTERIAL BLOOD GAS PO2 105 mm/Hg (80-100); ARTERIAL BLOOD GAS TCO2 21.9 mmol/L (22-28)
[2017-05-26 06:19] LABS: BASO % 0.1 % (0.0-2.0); HEMOGLOBIN 10.8 g/dL (11.0-16.0); LYMPH # 1.4 K/uL (1.0-4.3); LYMPH % 9.7 % (20.0-40.0); MEAN CELL VOLUME 84.9 fL (81.0-99.0); MEAN PLATELET VOLUME 7.7 fL (7.2-11.7); MONO # 0.7 K/uL (0.0-0.8); NEUT # 12.4 K/uL (1.8-7.0); NEUT % 85.2 % (50.0-75.0); PLATELET COUNT 294 K/uL (130-400); RBC 3.86 Mil/uL (3.80-5.20); RED CELL DISTRIBUTION WIDTH 18.2 % (11.5-14.5); WHITE BLOOD COUNT 14.6 K/uL (4.8-10.8)
[2017-05-26 06:49] LABS: ALB/GLOB RATIO 0.9 (1.0-2.1); ALBUMIN 2.3 g/dL (3.5-5.0); ALT/SGPT 19 U/L (9-52); AST/SGOT 71 U/L (14-36); BLOOD UREA NITROGEN 11 mg/dL (7-17); CALCIUM 7.1 mg/dl (8.6-10.4); GFR AFRICAN-AMERICAN > 60; GFR NON-AFRICAN AMERICAN 60; MAGNESIUM 1.3 mg/dL (1.6-2.3)
--- NOTE | 2017-05-26 07:59 | CP.PCM.PN ---
Subjective - Date & Time of Evaluation Date of Evaluation: 05/26/17 Time of Evaluation: 08:31 - Subjective Subjective: General Surgery Note for Dr. Richard Patient seen and examined at bedside. No acute event overnight. Patient is s/p exploratory laparotmy with diverting colostomy and liver biopsy POD#1. 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 Patient is still intubated and on vent support (450, 5, 18 50%). She admits to some pain at surgical site. Darvin drains with 145 cc and 295 cc of output. Urine output was 260 cc overnight. Colostomy has had 410 cc of output. Objective - Vital Signs/Intake and Output Vital Signs (last 24 hours): Temp Pulse Resp BP Pulse Ox 98.5 F 94 H 18 99/57 L 97 05/26/17 01:00 05/26/17 07:00 05/26/17 07:00 05/26/17 06:14 05/26/17 07:00 Intake and Output: 05/26/17 05/26/17 06:59 18:59 Intake Total 2100 100 Output Total 910 Balance 1190 100 - Medications Medications: Current Medications Albuterol/Ipratropium (Duoneb 3 Mg/0.5 Mg (3 Ml) Ud) 3 ml INH RQ6 PRN PRN Reason: Shortness of Breath Hydromorphone HCl (Dilaudid) 0.5 mg IVP Q4H PRN PRN Reason: Pain, severe (8-10) Last Admin: 05/26/17 05:11 Dose: 0.5 mg Sodium Chloride (Sodium Chloride 0.9%) 1,000 mls @ 75 mls/hr IV .[id number] [facility] Last Admin: 05/26/17 03:56 Dose: Not Given Metronidazole (Flagyl) 250 mg in 50 mls @ 50 mls/hr IVPB Q8H [facility] Last Admin: 05/26/17 01:12 Dose: 50 mls/hr Ceftriaxone Sodium 1 gm/ (Sodium Chloride) 100 mls @ 100 mls/hr IVPB Q12H [facility] Last Admin: 05/26/17 03:57 Dose: 100 mls/hr Sodium Chloride (Sodium Chloride 0.9%) 1,000 mls @ 100 mls/hr IV .Q10H [facility] Last Admin: 05/26/17 03:57 Dose: Not Given Insulin Aspart (Novolog) 0 unit SC Q4H YANIQUE PRN Reason: Protocol Last Admin: 05/26/17 04:17 Dose: Not Given Pantoprazole Sodium (Protonix Inj) 40 mg IVP Q12H [facility] Last Admin: 05/26/17 05:59 Dose: 40 mg - Labs Labs: 05/26/17 06:11 05/26/17 06:11 PT 14.5 SECONDS (9.7-12.2) H 05/25/17 07:51 INR 1.3 05/25/17 07:51 APTT 31 SECONDS (21-34) 05/25/17 07:51 - Constitutional Appears: No Acute Distress - Head Exam Head Exam: ATRAUMATIC, NORMOCEPHALIC - Eye Exam Eye Exam: Normal appearance - ENT Exam ENT Exam: Mucous Membranes Moist Additional comments: ET tube in place - Respiratory Exam Additional comments: intubated and on vent support - Cardiovascular Exam Cardiovascular Exam: REGULAR RHYTHM - GI/Abdominal Exam GI & Abdominal Exam: Soft, Tenderness (near surgical sites), Normal Bowel Sounds Additional comments: colostomy with brown tool output darvin drain in place with serosanguinous output dressing clean dry and intact - Exam Additional comments: naqvi catheter in place - Extremities Exam Extremities Exam: absent: Calf Tenderness - Neurological Exam Neurological Exam: Alert, Awake - Psychiatric Exam Psychiatric exam: Flat Affect - Skin Skin Exam: Dry, Intact, Normal Color, Warm Assessment and Plan - Assessment and Plan (Free Text) Plan: 86 F with rectal mass invading bladder and liver mass s/p exploratory laparotmy with diverting colostomy and liver biopsy POD#1 -Strict I's & O's -Weaning trial today -IV fluids -IV antibiotics -Analgesics/Anti-emetics PRN -GI/DVT ppx -Medical management as per ICU -Discussed with Dr. Hilary Jimenez PGY1
[2017-05-26] MEDS ORDERED: Dexmedetomidine Hydrochloride 400 MCG in Sodium Chloride 0.9% 96 ML IV PRN (08:30)
[2017-05-26 08:36] LABS: ANISOCYTOSIS MODERATE; BANDS 21 % (0-2); LYMPHOCYTE 7 % (20-40); MONOCYTE 5 % (0-10); NEUTROPHIL 67 % (50-75); NUCLEATED RED BLOOD CELL 1 % (0-0); PLATELET ESTIMATE NORMAL (NORMAL); TOTAL CELLS COUNTED 100
[2017-05-26 08:37] LABS: TOXIC GRANULATION PRESENT
--- NOTE | 2017-05-26 09:06 | RAD ---
HISTORY: re-evaluate COMPARISON: 05/25/2017 FINDINGS: The endotracheal tube terminates 4.5 cm proximal to the fadumo. The nasogastric tube terminates in the stomach. LUNGS: There are low lung volumes. There is a left retrocardiac opacity. . PLEURA: Blunting of left costophrenic angle, no pneumothorax apparent. No large right pleural effusion. CARDIOVASCULAR: Normal. OSSEOUS STRUCTURES: No significant abnormalities. VISUALIZED UPPER ABDOMEN: Normal. OTHER FINDINGS: None. IMPRESSION: Persistent left lower lobe atelectasis/pneumonia and pleural effusion. Low lung volumes may be related to poor inspiratory effort. Endotracheal tube terminates 4.5 cm proximal to the fadumo.
[2017-05-26] MEDS ORDERED: Metoprolol 1 mg/ml Inj IVP ONE (09:31)
--- NOTE | 2017-05-26 09:34 | CP.CCUPN ---
<Carolina Rico - Last Filed: 05/26/17 13:05> CCU Subjective - Physician Review Subjective (Free Text): 05/26/17 13:[address] Remy Patient seen and examined at bedside. No acute events overnight. Patient extubated today. Patient's hourly urine output is 25cc/hr. Patient's post- extubation ABG showed respiratory acidosis with respiratory rate of 11-14. PAtient placed on bipap 12/5 FiO2 40% CCU Objective - Vital Signs / Intake & Output Vital Signs (Last 4 hours): Vital Signs Temp Pulse Resp BP Pulse Ox 05/26/17 09:00 123 H 14 140/79 97 05/26/17 08:00 98.6 F 104 H 15 92/54 L 99 05/26/17 07:00 94 H 17 99/57 L 97 05/26/17 06:14 99 H 18 99/57 L 97 05/26/17 06:00 104 H 17 97 Intake and Output (Last 8hrs): Intake & Output 05/25/17 05/26/17 05/26/17 22:59 06:59 14:59 Intake Total 1600 800 300 Output Total 360 805 Balance 1240 -5 300 Intake: Intake, IV Amount 1600 800 300 Left Antecubital 1600 800 300 Oral 0 Output: Gastric Amount 0 0 Right Nares 0 0 Drainage 125 395 JP1 15 130 JP2 30 265 Urine 125 110 Urethral (Bailey) 90 110 Stool 110 300 - Medications Active Medications: Active Medications Generic Name Dose Route Start Last Admin Trade Name Freq PRN Reason Stop Dose Admin Albuterol/Ipratropium 3 ml 05/23/17 10:44 Duoneb 3 Mg/0.5 Mg (3 Ml) Ud INH RQ6 PRN Shortness of Breath Hydromorphone HCl 0.5 mg 05/25/17 15:21 05/26/17 09:04 Dilaudid IVP 0.5 mg Q4H PRN Administration Pain, severe (8-10) Sodium Chloride 1,000 mls @ 75 mls/hr 05/25/17 14:00 05/26/17 03:56 Sodium Chloride 0.9% IV Not Given .[id number] YANIQUE Metronidazole 250 mg in 50 mls @ 50 mls/hr 05/25/17 18:00 05/26/17 01:12 Flagyl IVPB 50 mls/hr Q8H YANIQUE Administration Ceftriaxone Sodium 1 gm/ 100 mls @ 100 mls/hr 05/25/17 16:00 05/26/17 03:57 Sodium Chloride IVPB 100 mls/hr Q12H YANIQUE Administration Sodium Chloride 1,000 mls @ 100 mls/hr 05/25/17 16:30 05/26/17 03:57 Sodium Chloride 0.9% IV Not Given .Q10H YANIQUE Dexmedetomidine HCl 400 mcg/ 100 mls @ 2.83 mls/hr 05/26/17 08:30 Sodium Chloride IV TITR PRN Systolic Blood Pressure Protocol 0.2 MCG/KG/HR Insulin Aspart 0 unit 05/25/17 16:45 05/26/17 09:06 Novolog SC Not Given Q4H [facility] Protocol Metoprolol Tartrate 5 mg 05/26/17 09:31 Lopressor IVP 05/26/17 09:32 ONCE ONE Pantoprazole Sodium 40 mg 05/25/17 18:45 05/26/17 05:59 Protonix Inj IVP 40 mg Q12H YANIQUE Administration - Patient Studies Lab Studies: Microbiology Studies 05/25/17 Unknown Gram Stain - Final Peritoneal Fluid Lab Studies 05/26/17 05/26/17 05/26/17 Range/Units 08:41 06:11 06:11 WBC 14.6 H D (4.8-10.8) K/uL RBC 3.86 (3.80-5.20) Mil/uL Hgb 10.8 L (11.0-16.0) g/dL Hct 32.8 L (34.0-47.0) % MCV 84.9 (81.0-99.0) fL MCH 28.0 (27.0-31.0) pg MCHC 33.0 (33.0-37.0) g/dL RDW 18.2 H (11.5-14.5) % Plt Count 294 (130-400) K/uL MPV 7.7 (7.2-11.7) fL Neut % (Auto) 85.2 H (50.0-75.0) % Lymph % (Auto) 9.7 L (20.0-40.0) % [place] % (Auto) 5.0 (0.0-10.0) % Eos % (Auto) 0.0 (0.0-4.0) % Baso % (Auto) 0.1 (0.0-2.0) % Neut # 12.4 H (1.8-7.0) K/uL Lymph # 1.4 (1.0-4.3) K/uL [place] # 0.7 (0.0-0.8) K/uL Eos # 0.0 (0.0-0.7) K/uL Baso # 0.0 (0.0-0.2) K/uL Neutrophils % (Manual) 67 (50-75) % Band Neutrophils % 21 H* (0-2) % Lymphocytes % (Manual) 7 L (20-40) % Monocytes % (Manual) 5 (0-10) % Nucleated RBC % 1 H (0-0) % Toxic Granulation Present Platelet Estimate Normal (NORMAL) Anisocytosis (manual) Moderate Puncture Site pCO2 (35-45) mm/Hg pO2 (80-100) mm/Hg HCO3 (21-28) mmol/L ABG pH (7.35-7.45) ABG Total CO2 (22-28) mmol/L ABG O2 Saturation (95-98) % ABG Base Excess (-2.0-3.0) mmol/L ABG Hemoglobin (11.7-17.4) g/dL ABG Carboxyhemoglobin (0.5-1.5) % POC ABG HHb (Measured) (0.0-5.0) % ABG Methemoglobin (0.0-3.0) % Candelario Test ABG Potassium (3.6-5.2) mmol/L A-a O2 Difference mm/Hg Respiratory Index Hgb O2 Saturation (95.0-98.0) % Glucose (65-105) mg/dl Lactate (0.7-2.1) mmol/L Vent Mode Mechanical Rate FiO2 % Tidal Volume PEEP Sodium 131 L (132-148) mmol/L Potassium 4.2 (3.6-5.2) mmol/L Chloride 103 (98-107) mmol/L Carbon Dioxide 22 (22-30) mmol/L Anion Gap 10 (10-20) BUN 11 (7-17) mg/dL Creatinine 0.9 (0.7-1.2) mg/dL Est GFR ( Amer) > 60 Est GFR (Non-Af Amer) 60 POC Glucose (mg/dL) 136 H (65-110) mg/dL Random Glucose 113 H (65-105) mg/dL Lactic Acid (0.7-2.1) mmol/L Calcium 7.1 L (8.6-10.4) mg/dl Phosphorus 3.0 (2.5-4.5) mg/dL Magnesium 1.3 L (1.6-2.3) mg/dL Total Bilirubin 1.1 (0.2-1.3) mg/dL AST 71 H D (14-36) U/L ALT 19 (9-52) U/L Alkaline Phosphatase 101 (38-126) U/L Troponin I (0.00-0.120) ng/mL NT-Pro-B Natriuret Pep (0-900) pg/mL Total Protein 4.7 L (6.3-8.3) g/dL Albumin 2.3 L (3.5-5.0) g/dL Globulin 2.5 (2.2-3.9) gm/dL Albumin/Globulin Ratio 0.9 L (1.0-2.1) Arterial Blood Potassium (3.6-5.2) mmol/L Fluid Source Fluid Appearance (CLEAR) Fluid WBC (0.0-300.0) /mm3 Fluid RBC (0.0-0.0) /mm3 Fluid Tot Cell Count (0-0) Fluid Neutrophils (0-0) % Fluid Lymphocytes (0-0) % Fld Monocyte/Macrophag (0-0) % Fluid Diff Path Review Fluid Comment Blood Type Antibody Screen 05/26/17 05/26/17 05/26/17 Range/Units 06:11 05:06 04:08 WBC (4.8-10.8) K/uL RBC (3.80-5.20) Mil/uL Hgb (11.0-16.0) g/dL Hct (34.0-47.0) % MCV (81.0-99.0) fL MCH (27.0-31.0) pg MCHC (33.0-37.0) g/dL RDW (11.5-14.5) % Plt Count (130-400) K/uL MPV (7.2-11.7) fL Neut % (Auto) (50.0-75.0) % Lymph % (Auto) (20.0-40.0) % [place] % (Auto) (0.0-10.0) % Eos % (Auto) (0.0-4.0) % Baso % (Auto) (0.0-2.0) % Neut # (1.8-7.0) K/uL Lymph # (1.0-4.3) K/uL [place] # (0.0-0.8) K/uL Eos # (0.0-0.7) K/uL Baso # (0.0-0.2) K/uL Neutrophils % (Manual) (50-75) % Band Neutrophils % (0-2) % Lymphocytes % (Manual) (20-40) % Monocytes % (Manual) (0-10) % Nucleated RBC % (0-0) % Toxic Granulation Platelet Estimate (NORMAL) Anisocytosis (manual) Puncture Site R bra pCO2 33 L (35-45) mm/Hg pO2 105 H (80-100) mm/Hg HCO3 22.5 (21-28) mmol/L ABG pH 7.41 (7.35-7.45) ABG Total CO2 21.9 L (22-28) mmol/L ABG O2 Saturation 98.8 H (95-98) % ABG Base Excess -3.1 L (-2.0-3.0) mmol/L ABG Hemoglobin 10.8 L (11.7-17.4) g/dL ABG Carboxyhemoglobin 1.8 H (0.5-1.5) % POC ABG HHb (Measured) 1.2 (0.0-5.0) % ABG Methemoglobin 1.7 (0.0-3.0) % Candelario Test Na ABG Potassium (3.6-5.2) mmol/L A-a O2 Difference 210.0 mm/Hg Respiratory Index 2.0 Hgb O2 Saturation 95.3 (95.0-98.0) % Glucose (65-105) mg/dl Lactate (0.7-2.1) mmol/L Vent Mode Prvc Mechanical Rate 18 FiO2 50.0 % Tidal Volume 450 PEEP 5 Sodium (132-148) mmol/L Potassium (3.6-5.2) mmol/L Chloride (98-107) mmol/L Carbon Dioxide (22-30) mmol/L Anion Gap (10-20) BUN (7-17) mg/dL Creatinine (0.7-1.2) mg/dL Est GFR ( Amer) Est GFR (Non-Af Amer) POC Glucose (mg/dL) 112 H (65-110) mg/dL Random Glucose (65-105) mg/dL Lactic Acid 2.0 (0.7-2.1) mmol/L Calcium (8.6-10.4) mg/dl Phosphorus (2.5-4.5) mg/dL Magnesium (1.6-2.3) mg/dL Total Bilirubin (0.2-1.3) mg/dL AST (14-36) U/L ALT (9-52) U/L Alkaline Phosphatase (38-126) U/L Troponin I (0.00-0.120) ng/mL NT-Pro-B Natriuret Pep (0-900) pg/mL Total Protein (6.3-8.3) g/dL Albumin (3.5-5.0) g/dL Globulin (2.2-3.9) gm/dL Albumin/Globulin Ratio (1.0-2.1) Arterial Blood Potassium (3.6-5.2) mmol/L Fluid Source Fluid Appearance (CLEAR) Fluid WBC (0.0-300.0) /mm3 Fluid RBC (0.0-0.0) /mm3 Fluid Tot Cell Count (0-0) Fluid Neutrophils (0-0) % Fluid Lymphocytes (0-0) % Fld Monocyte/Macrophag (0-0) % Fluid Diff Path Review Fluid Comment Blood Type Antibody Screen 05/25/17 05/25/17 05/25/17 Range/Units 23:44 20:46 16:51 WBC (4.8-10.8) K/uL RBC (3.80-5.20) Mil/uL Hgb (11.0-16.0) g/dL Hct (34.0-47.0) % MCV (81.0-99.0) fL MCH (27.0-31.0) pg MCHC (33.0-37.0) g/dL RDW (11.5-14.5) % Plt Count (130-400) K/uL MPV (7.2-11.7) fL Neut % (Auto) (50.0-75.0) % Lymph % (Auto) (20.0-40.0) % [place] % (Auto) (0.0-10.0) % Eos % (Auto) (0.0-4.0) % Baso % (Auto) (0.0-2.0) % Neut # (1.8-7.0) K/uL Lymph # (1.0-4.3) K/uL [place] # (0.0-0.8) K/uL Eos # (0.0-0.7) K/uL Baso # (0.0-0.2) K/uL Neutrophils % (Manual) (50-75) % Band Neutrophils % (0-2) % Lymphocytes % (Manual) (20-40) % Monocytes % (Manual) (0-10) % Nucleated RBC % (0-0) % Toxic Granulation Platelet Estimate (NORMAL) Anisocytosis (manual) Puncture Site pCO2 (35-45) mm/Hg pO2 (80-100) mm/Hg HCO3 (21-28) mmol/L ABG pH (7.35-7.45) ABG Total CO2 (22-28) mmol/L ABG O2 Saturation (95-98) % ABG Base Excess (-2.0-3.0) mmol/L ABG Hemoglobin (11.7-17.4) g/dL ABG Carboxyhemoglobin (0.5-1.5) % POC ABG HHb (Measured) (0.0-5.0) % ABG Methemoglobin (0.0-3.0) % [place]elario Test ABG Potassium (3.6-5.2) mmol/L A-a O2 Difference mm/Hg Respiratory Index Hgb O2 Saturation (95.0-98.0) % Glucose (65-105) mg/dl Lactate (0.7-2.1) mmol/L Vent Mode Mechanical Rate FiO2 % Tidal Volume PEEP Sodium (132-148) mmol/L Potassium (3.6-5.2) mmol/L Chloride (98-107) mmol/L Carbon Dioxide (22-30) mmol/L Anion Gap (10-20) BUN (7-17) mg/dL Creatinine (0.7-1.2) mg/dL Est GFR ( Amer) Est GFR (Non-Af Amer) POC Glucose (mg/dL) 172 H 207 H (65-110) mg/dL Random Glucose (65-105) mg/dL Lactic Acid (0.7-2.1) mmol/L Calcium (8.6-10.4) mg/dl Phosphorus (2.5-4.5) mg/dL Magnesium (1.6-2.3) mg/dL Total Bilirubin (0.2-1.3) mg/dL AST (14-36) U/L ALT (9-52) U/L Alkaline Phosphatase (38-126) U/L Troponin I (0.00-0.120) ng/mL NT-Pro-B Natriuret Pep 1160 H (0-900) pg/mL Total Protein (6.3-8.3) g/dL Albumin (3.5-5.0) g/dL Globulin (2.2-3.9) gm/dL Albumin/Globulin Ratio (1.0-2.1) Arterial Blood Potassium (3.6-5.2) mmol/L Fluid Source Fluid Appearance (CLEAR) Fluid WBC (0.0-300.0) /mm3 Fluid RBC (0.0-0.0) /mm3 Fluid Tot Cell Count (0-0) Fluid Neutrophils (0-0) % Fluid Lymphocytes (0-0) % Fld Monocyte/Macrophag (0-0) % Fluid Diff Path Review Fluid Comment Blood Type Antibody Screen 05/25/17 05/25/17 05/25/17 Range/Units 16:50 15:45 15:26 WBC (4.8-10.8) K/uL RBC (3.80-5.20) Mil/uL Hgb (11.0-16.0) g/dL Hct (34.0-47.0) % MCV (81.0-99.0) fL MCH (27.0-31.0) pg MCHC (33.0-37.0) g/dL RDW (11.5-14.5) % Plt Count (130-400) K/uL MPV (7.2-11.7) fL Neut % (Auto) (50.0-75.0) % Lymph % (Auto) (20.0-40.0) % [place] % (Auto) (0.0-10.0) % Eos % (Auto) (0.0-4.0) % Baso % (Auto) (0.0-2.0) % Neut # (1.8-7.0) K/uL Lymph # (1.0-4.3) K/uL [place] # (0.0-0.8) K/uL Eos # (0.0-0.7) K/uL Baso # (0.0-0.2) K/uL Neutrophils % (Manual) (50-75) % Band Neutrophils % (0-2) % Lymphocytes % (Manual) (20-40) % Monocytes % (Manual) (0-10) % Nucleated RBC % (0-0) % Toxic Granulation Platelet Estimate (NORMAL) Anisocytosis (manual) Puncture Site Rra pCO2 41 (35-45) mm/Hg pO2 215 H (80-100) mm/Hg HCO3 21.2 (21-28) mmol/L ABG pH 7.32 L (7.35-7.45) ABG Total CO2 22.4 (22-28) mmol/L ABG O2 Saturation 99.6 H (95-98) % ABG Base Excess -4.8 L (-2.0-3.0) mmol/L ABG Hemoglobin (11.7-17.4) g/dL ABG Carboxyhemoglobin (0.5-1.5) % POC ABG HHb (Measured) (0.0-5.0) % ABG Methemoglobin (0.0-3.0) % [place]elario Test Na ABG Potassium 3.9 (3.6-5.2) mmol/L A-a O2 Difference 447.0 mm/Hg Respiratory Index 2.1 Hgb O2 Saturation (95.0-98.0) % Glucose 247 H (65-105) mg/dl Lactate 2.0 (0.7-2.1) mmol/L Vent Mode Prvc Mechanical Rate 15 FiO2 100.0 % Tidal Volume 450 PEEP 5 Sodium 133.0 127 L (132-148) mmol/L Potassium 4.1 (3.6-5.2) mmol/L Chloride 106.0 101 (98-107) mmol/L Carbon Dioxide 22 (22-30) mmol/L Anion Gap 8 L (10-20) BUN 6 L (7-17) mg/dL Creatinine 0.7 (0.7-1.2) mg/dL Est GFR ( Amer) > 60 Est GFR (Non-Af Amer) > 60 POC Glucose (mg/dL) 242 H (65-110) mg/dL Random Glucose 233 H (65-105) mg/dL Lactic Acid (0.7-2.1) mmol/L Calcium 6.9 L (8.6-10.4) mg/dl Phosphorus 2.7 (2.5-4.5) mg/dL Magnesium 1.3 L (1.6-2.3) mg/dL Total Bilirubin 1.7 H (0.2-1.3) mg/dL AST 38 H D (14-36) U/L ALT 22 (9-52) U/L Alkaline Phosphatase 95 (38-126) U/L Troponin I < 0.0120 (0.00-0.120) ng/mL NT-Pro-B Natriuret Pep (0-900) pg/mL Total Protein 5.0 L (6.3-8.3) g/dL Albumin 2.3 L (3.5-5.0) g/dL Globulin 2.6 (2.2-3.9) gm/dL Albumin/Globulin Ratio 0.9 L (1.0-2.1) Arterial Blood Potassium 3.9 (3.6-5.2) mmol/L Fluid Source Fluid Appearance (CLEAR) Fluid WBC (0.0-300.0) /mm3 Fluid RBC (0.0-0.0) /mm3 Fluid Tot Cell Count (0-0) Fluid Neutrophils (0-0) % Fluid Lymphocytes (0-0) % Fld Monocyte/Macrophag (0-0) % Fluid Diff Path Review Fluid Comment Blood Type Antibody Screen 05/25/17 05/25/17 05/25/17 Range/Units 15:26 15:26 14:34 WBC 7.8 (4.8-10.8) K/uL RBC 4.25 (3.80-5.20) Mil/uL Hgb 11.9 D (11.0-16.0) g/dL Hct 36.5 (34.0-47.0) % MCV 86.0 (81.0-99.0) fL MCH 28.0 (27.0-31.0) pg MCHC 32.6 L (33.0-37.0) g/dL RDW 18.5 H (11.5-14.5) % Plt Count 335 (130-400) K/uL MPV 7.0 L (7.2-11.7) fL Neut % (Auto) 82.7 H (50.0-75.0) % Lymph % (Auto) 13.6 L (20.0-40.0) % [place] % (Auto) 3.3 (0.0-10.0) % Eos % (Auto) 0.2 (0.0-4.0) % Baso % (Auto) 0.2 (0.0-2.0) % Neut # 6.5 (1.8-7.0) K/uL Lymph # 1.1 (1.0-4.3) K/uL [place] # 0.3 (0.0-0.8) K/uL Eos # 0.0 (0.0-0.7) K/uL Baso # 0.0 (0.0-0.2) K/uL Neutrophils % (Manual) (50-75) % Band Neutrophils % (0-2) % Lymphocytes % (Manual) (20-40) % Monocytes % (Manual) (0-10) % Nucleated RBC % (0-0) % Toxic Granulation Platelet Estimate (NORMAL) Anisocytosis (manual) Puncture Site pCO2 (35-45) mm/Hg pO2 (80-100) mm/Hg HCO3 (21-28) mmol/L ABG pH (7.35-7.45) ABG Total CO2 (22-28) mmol/L ABG O2 Saturation (95-98) % ABG Base Excess (-2.0-3.0) mmol/L ABG Hemoglobin (11.7-17.4) g/dL ABG Carboxyhemoglobin (0.5-1.5) % POC ABG HHb (Measured) (0.0-5.0) % ABG Methemoglobin (0.0-3.0) % Candelario Test ABG Potassium (3.6-5.2) mmol/L A-a O2 Difference mm/Hg Respiratory Index Hgb O2 Saturation (95.0-98.0) % Glucose (65-105) mg/dl Lactate (0.7-2.1) mmol/L Vent Mode Mechanical Rate FiO2 % Tidal Volume PEEP Sodium (132-148) mmol/L Potassium (3.6-5.2) mmol/L Chloride (98-107) mmol/L Carbon Dioxide (22-30) mmol/L Anion Gap (10-20) BUN (7-17) mg/dL Creatinine (0.7-1.2) mg/dL Est GFR ( Amer) Est GFR (Non-Af Amer) POC Glucose (mg/dL) 262 H (65-110) mg/dL Random Glucose (65-105) mg/dL Lactic Acid 2.4 H (0.7-2.1) mmol/L Calcium (8.6-10.4) mg/dl Phosphorus (2.5-4.5) mg/dL Magnesium (1.6-2.3) mg/dL Total Bilirubin (0.2-1.3) mg/dL AST (14-36) U/L ALT (9-52) U/L Alkaline Phosphatase (38-126) U/L Troponin I (0.00-0.120) ng/mL NT-Pro-B Natriuret Pep (0-900) pg/mL Total Protein (6.3-8.3) g/dL Albumin (3.5-5.0) g/dL Globulin (2.2-3.9) gm/dL Albumin/Globulin Ratio (1.0-2.1) Arterial Blood Potassium (3.6-5.2) mmol/L Fluid Source Fluid Appearance (CLEAR) Fluid WBC (0.0-300.0) /mm3 Fluid RBC (0.0-0.0) /mm3 Fluid Tot Cell Count (0-0) Fluid Neutrophils (0-0) % Fluid Lymphocytes (0-0) % Fld Monocyte/Macrophag (0-0) % Fluid Diff Path Review Fluid Comment Blood Type Antibody Screen 05/25/17 05/24/17 Range/Units 14:22 09:13 WBC (4.8-10.8) K/uL RBC (3.80-5.20) Mil/uL Hgb (11.0-16.0) g/dL Hct (34.0-47.0) % MCV (81.0-99.0) fL MCH (27.0-31.0) pg MCHC (33.0-37.0) g/dL RDW (11.5-14.5) % Plt Count (130-400) K/uL MPV (7.2-11.7) fL Neut % (Auto) (50.0-75.0) % Lymph % (Auto) (20.0-40.0) % [place] % (Auto) (0.0-10.0) % Eos % (Auto) (0.0-4.0) % Baso % (Auto) (0.0-2.0) % Neut # (1.8-7.0) K/uL Lymph # (1.0-4.3) K/uL [place] # (0.0-0.8) K/uL Eos # (0.0-0.7) K/uL Baso # (0.0-0.2) K/uL Neutrophils % (Manual) (50-75) % Band Neutrophils % (0-2) % Lymphocytes % (Manual) (20-40) % Monocytes % (Manual) (0-10) % Nucleated RBC % (0-0) % Toxic Granulation Platelet Estimate (NORMAL) Anisocytosis (manual) Puncture Site pCO2 (35-45) mm/Hg pO2 (80-100) mm/Hg HCO3 (21-28) mmol/L ABG pH (7.35-7.45) ABG Total CO2 (22-28) mmol/L ABG O2 Saturation (95-98) % ABG Base Excess (-2.0-3.0) mmol/L ABG Hemoglobin (11.7-17.4) g/dL ABG Carboxyhemoglobin (0.5-1.5) % POC ABG HHb (Measured) (0.0-5.0) % ABG Methemoglobin (0.0-3.0) % [place]elario Test ABG Potassium (3.6-5.2) mmol/L A-a O2 Difference mm/Hg Respiratory Index Hgb O2 Saturation (95.0-98.0) % Glucose (65-105) mg/dl Lactate (0.7-2.1) mmol/L Vent Mode Mechanical Rate FiO2 % Tidal Volume PEEP Sodium (132-148) mmol/L Potassium (3.6-5.2) mmol/L Chloride (98-107) mmol/L Carbon Dioxide (22-30) mmol/L Anion Gap (10-20) BUN (7-17) mg/dL Creatinine (0.7-1.2) mg/dL Est GFR ( Amer) Est GFR (Non-Af Amer) POC Glucose (mg/dL) (65-110) mg/dL Random Glucose (65-105) mg/dL Lactic Acid (0.7-2.1) mmol/L Calcium (8.6-10.4) mg/dl Phosphorus (2.5-4.5) mg/dL Magnesium (1.6-2.3) mg/dL Total Bilirubin (0.2-1.3) mg/dL AST (14-36) U/L ALT (9-52) U/L Alkaline Phosphatase (38-126) U/L Troponin I (0.00-0.120) ng/mL NT-Pro-B Natriuret Pep (0-900) pg/mL Total Protein (6.3-8.3) g/dL Albumin (3.5-5.0) g/dL Globulin (2.2-3.9) gm/dL Albumin/Globulin Ratio (1.0-2.1) Arterial Blood Potassium (3.6-5.2) mmol/L Fluid Source Peritoneal Fluid Appearance Sl cloudy (CLEAR) Fluid WBC 125.0 (0.0-300.0) /mm3 Fluid RBC 316.0 H (0.0-0.0) /mm3 Fluid Tot Cell Count 100 H (0-0) Fluid Neutrophils 3.0 H (0-0) % Fluid Lymphocytes 96.0 H (0-0) % Fld Monocyte/Macrophag 1 H (0-0) % Fluid Diff Path Review Fluid Comment Blood Type O POSITIVE Antibody Screen Negative Laboratory Results - last 24 hr 05/24/17 05/25/17 05/25/17 09:13 14:22 14:34 WBC RBC Hgb Hct MCV MCH MCHC RDW Plt Count MPV Neut % (Auto) Lymph % (Auto) [place] % (Auto) Eos % (Auto) Baso % (Auto) Neut # Lymph # [place] # Eos # Baso # Neutrophils % (Manual) Band Neutrophils % Lymphocytes % (Manual) Monocytes % (Manual) Nucleated RBC % Toxic Granulation Platelet Estimate Anisocytosis (manual) Puncture Site pCO2 pO2 HCO3 ABG pH ABG Total CO2 ABG O2 Saturation ABG Base Excess ABG Hemoglobin ABG Carboxyhemoglobin POC ABG HHb (Measured) ABG Methemoglobin Candelario Test ABG Potassium A-a O2 Difference Respiratory Index Hgb O2 Saturation Glucose Lactate Vent Mode Mechanical Rate FiO2 Tidal Volume PEEP Sodium Potassium Chloride Carbon Dioxide Anion Gap BUN Creatinine Est GFR ( Amer) Est GFR (Non-Af Amer) POC Glucose (mg/dL) 262 H Random Glucose Lactic Acid Calcium Phosphorus Magnesium Total Bilirubin AST ALT Alkaline Phosphatase Troponin I NT-Pro-B Natriuret Pep Total Protein Albumin Globulin Albumin/Globulin Ratio Arterial Blood Potassium Fluid Source Peritoneal Fluid Appearance Sl cloudy Fluid WBC 125.0 Fluid RBC 316.0 H Fluid Tot Cell Count 100 H Fluid Neutrophils 3.0 H Fluid Lymphocytes 96.0 H Fld Monocyte/Macrophag 1 H Fluid Diff Path Review Fluid Comment Blood Type O POSITIVE Antibody Screen Negative 05/25/17 05/25/17 05/25/17 15:26 15:26 15:26 WBC 7.8 RBC 4.25 Hgb 11.9 D Hct 36.5 MCV 86.0 MCH 28.0 MCHC 32.6 L RDW 18.5 H Plt Count 335 MPV 7.0 L Neut % (Auto) 82.7 H Lymph % (Auto) 13.6 L [place] % (Auto) 3.3 Eos % (Auto) 0.2 Baso % (Auto) 0.2 Neut # 6.5 Lymph # 1.1 [place] # 0.3 Eos # 0.0 Baso # 0.0 Neutrophils % (Manual) Band Neutrophils % Lymphocytes % (Manual) Monocytes % (Manual) Nucleated RBC % Toxic Granulation Platelet Estimate Anisocytosis (manual) Puncture Site pCO2 pO2 HCO3 ABG pH ABG Total CO2 ABG O2 Saturation ABG Base Excess ABG Hemoglobin ABG Carboxyhemoglobin POC ABG HHb (Measured) ABG Methemoglobin Candelario Test ABG Potassium A-a O2 Difference Respiratory Index Hgb O2 Saturation Glucose Lactate Vent Mode Mechanical Rate FiO2 Tidal Volume PEEP Sodium 127 L Potassium 4.1 Chloride 101 Carbon Dioxide 22 Anion Gap 8 L BUN 6 L Creatinine 0.7 Est GFR ( Amer) > 60 Est GFR (Non-Af Amer) > 60 POC Glucose (mg/dL) Random Glucose 233 H Lactic Acid 2.4 H Calcium 6.9 L Phosphorus 2.7 Magnesium 1.3 L Total Bilirubin 1.7 H AST 38 H D ALT 22 Alkaline Phosphatase 95 Troponin I < 0.0120 NT-Pro-B Natriuret Pep Total Protein 5.0 L Albumin 2.3 L Globulin 2.6 Albumin/Globulin Ratio 0.9 L Arterial Blood Potassium Fluid Source Fluid Appearance Fluid WBC Fluid RBC Fluid Tot Cell Count Fluid Neutrophils Fluid Lymphocytes Fld Monocyte/Macrophag Fluid Diff Path Review Fluid Comment Blood Type Antibody Screen 05/25/17 05/25/17 05/25/17 15:45 16:50 16:51 WBC RBC Hgb Hct MCV MCH MCHC RDW Plt Count MPV Neut % (Auto) Lymph % (Auto) [place] % (Auto) Eos % (Auto) Baso % (Auto) Neut # Lymph # [place] # Eos # Baso # Neutrophils % (Manual) Band Neutrophils % Lymphocytes % (Manual) Monocytes % (Manual) Nucleated RBC % Toxic Granulation Platelet Estimate Anisocytosis (manual) Puncture Site Rra pCO2 41 pO2 215 H HCO3 21.2 ABG pH 7.32 L ABG Total CO2 22.4 ABG O2 Saturation 99.6 H ABG Base Excess -4.8 L ABG Hemoglobin ABG Carboxyhemoglobin POC ABG HHb (Measured) ABG Methemoglobin Candelario Test Na ABG Potassium 3.9 A-a O2 Difference 447.0 Respiratory Index 2.1 Hgb O2 Saturation Glucose 247 H Lactate 2.0 Vent Mode Prvc Mechanical Rate 15 FiO2 100.0 Tidal Volume 450 PEEP 5 Sodium 133.0 Potassium Chloride 106.0 Carbon Dioxide Anion Gap BUN Creatinine Est GFR ( Amer) Est GFR (Non-Af Amer) POC Glucose (mg/dL) 242 H Random Glucose Lactic Acid Calcium Phosphorus Magnesium Total Bilirubin AST ALT Alkaline Phosphatase Troponin I NT-Pro-B Natriuret Pep 1160 H Total Protein Albumin Globulin Albumin/Globulin Ratio Arterial Blood Potassium 3.9 Fluid Source Fluid Appearance Fluid WBC Fluid RBC Fluid Tot Cell Count Fluid Neutrophils Fluid Lymphocytes Fld Monocyte/Macrophag Fluid Diff Path Review Fluid Comment Blood Type Antibody Screen 05/25/17 05/25/17 05/26/17 20:46 23:44 04:08 WBC RBC Hgb Hct MCV MCH MCHC RDW Plt Count MPV Neut % (Auto) Lymph % (Auto) [place] % (Auto) Eos % (Auto) Baso % (Auto) Neut # Lymph # [place] # Eos # Baso # Neutrophils % (Manual) Band Neutrophils % Lymphocytes % (Manual) Monocytes % (Manual) Nucleated RBC % Toxic Granulation Platelet Estimate Anisocytosis (manual) Puncture Site pCO2 pO2 HCO3 ABG pH ABG Total CO2 ABG O2 Saturation ABG Base Excess ABG Hemoglobin ABG Carboxyhemoglobin POC ABG HHb (Measured) ABG Methemoglobin Candelario Test ABG Potassium A-a O2 Difference Respiratory Index Hgb O2 Saturation Glucose Lactate Vent Mode Mechanical Rate FiO2 Tidal Volume PEEP Sodium Potassium Chloride Carbon Dioxide Anion Gap BUN Creatinine Est GFR ( Amer) Est GFR (Non-Af Amer) POC Glucose (mg/dL) 207 H 172 H 112 H Random Glucose Lactic Acid Calcium Phosphorus Magnesium Total Bilirubin AST ALT Alkaline Phosphatase Troponin I NT-Pro-B Natriuret Pep Total Protein Albumin Globulin Albumin/Globulin Ratio Arterial Blood Potassium Fluid Source Fluid Appearance Fluid WBC Fluid RBC Fluid Tot Cell Count Fluid Neutrophils Fluid Lymphocytes Fld Monocyte/Macrophag Fluid Diff Path Review Fluid Comment Blood Type Antibody Screen 05/26/17 05/26/17 05/26/17 05:06 06:11 06:11 WBC 14.6 H D RBC 3.86 Hgb 10.8 L Hct 32.8 L MCV 84.9 MCH 28.0 MCHC 33.0 RDW 18.2 H Plt Count 294 MPV 7.7 Neut % (Auto) 85.2 H Lymph % (Auto) 9.7 L [place] % (Auto) 5.0 Eos % (Auto) 0.0 Baso % (Auto) 0.1 Neut # 12.4 H Lymph # 1.4 [place] # 0.7 Eos # 0.0 Baso # 0.0 Neutrophils % (Manual) 67 Band Neutrophils % 21 H* Lymphocytes % (Manual) 7 L Monocytes % (Manual) 5 Nucleated RBC % 1 H Toxic Granulation Present Platelet Estimate Normal Anisocytosis (manual) Moderate Puncture Site R bra pCO2 33 L pO2 105 H HCO3 22.5 ABG pH 7.41 ABG Total CO2 21.9 L ABG O2 Saturation 98.8 H ABG Base Excess -3.1 L ABG Hemoglobin 10.8 L ABG Carboxyhemoglobin 1.8 H POC ABG HHb (Measured) 1.2 ABG Methemoglobin 1.7 Candelario Test Na ABG Potassium A-a O2 Difference 210.0 Respiratory Index 2.0 Hgb O2 Saturation 95.3 Glucose Lactate Vent Mode Prvc Mechanical Rate 18 FiO2 50.0 Tidal Volume 450 PEEP 5 Sodium Potassium Chloride Carbon Dioxide Anion Gap BUN Creatinine Est GFR ( Amer) Est GFR (Non-Af Amer) POC Glucose (mg/dL) Random Glucose Lactic Acid 2.0 Calcium Phosphorus Magnesium Total Bilirubin AST ALT Alkaline Phosphatase Troponin I NT-Pro-B Natriuret Pep Total Protein Albumin Globulin Albumin/Globulin Ratio Arterial Blood Potassium Fluid Source Fluid Appearance Fluid WBC Fluid RBC Fluid Tot Cell Count Fluid Neutrophils Fluid Lymphocytes Fld Monocyte/Macrophag Fluid Diff Path Review Fluid Comment Blood Type Antibody Screen 05/26/17 05/26/17 06:11 08:41 WBC RBC Hgb Hct MCV MCH MCHC RDW Plt Count MPV Neut % (Auto) Lymph % (Auto) [place] % (Auto) Eos % (Auto) Baso % (Auto) Neut # Lymph # [place] # Eos # Baso # Neutrophils % (Manual) Band Neutrophils % Lymphocytes % (Manual) Monocytes % (Manual) Nucleated RBC % Toxic Granulation Platelet Estimate Anisocytosis (manual) Puncture Site pCO2 pO2 HCO3 ABG pH ABG Total CO2 ABG O2 Saturation ABG Base Excess ABG Hemoglobin ABG Carboxyhemoglobin POC ABG HHb (Measured) ABG Methemoglobin Candelario Test ABG Potassium A-a O2 Difference Respiratory Index Hgb O2 Saturation Glucose Lactate Vent Mode Mechanical Rate FiO2 Tidal Volume PEEP Sodium 131 L Potassium 4.2 Chloride 103 Carbon Dioxide 22 Anion Gap 10 BUN 11 Creatinine 0.9 Est GFR ( Amer) > 60 Est GFR (Non-Af Amer) 60 POC Glucose (mg/dL) 136 H Random Glucose 113 H Lactic Acid Calcium 7.1 L Phosphorus 3.0 Magnesium 1.3 L Total Bilirubin 1.1 AST 71 H D ALT 19 Alkaline Phosphatase 101 Troponin I NT-Pro-B Natriuret Pep Total Protein 4.7 L Albumin 2.3 L Globulin 2.5 Albumin/Globulin Ratio 0.9 L Arterial Blood Potassium Fluid Source Fluid Appearance Fluid WBC Fluid RBC Fluid Tot Cell Count Fluid Neutrophils Fluid Lymphocytes Fld Monocyte/Macrophag Fluid Diff Path Review Fluid Comment Blood Type Antibody Screen EKG/Cardiology Studies: Cardiology / EKG Studies 05/25/17 14:49 EKG [ELECTROCARDIOGRAM] Stat Comment: Mode Of Transportation: PORTABLE Reason For Exam: post op Fingerstick Blood Sugar Results: 136 Critical Care Progress Note - Nutrition Nutrition: Nutrition Category Date Time Status NPO Diet [DIET] Diets 05/24/17 Dinner Active Assessment/Plan - Assessment and Plan (Free Text) Assessment: 86 y/o w/ PMHx of DMII and HTN, s/p exploratory laparatomy, diverting colostomy , and liver biopsy x2 , POD 1. Operative findings: large sigmoid mass adhering to bladder and adjacent colon, and dilated colon. Assessment Oligouria Sigmoid Colon Malignancy w/ Liver metastasis Pleural effusion Pericardial effusion. Anemia HTN DM Plan Neuro: nothing to do (ntd) Sedation: Precedex 110 mls@ 2.83 mls/hr Pain: Hydromorphone HCl 0.5 mg IVP Q4H PRN Pulm: CXR shows persistent left lower lobe atelectasis/pneumonia and pleural effusion. Duoneb 3 ml INH Q6 PRN SOB. Extubate and put on CPAP. Incentive spirometry. Vent Settings: MR 18 // FiO2 50 // TV 450 // PEEP 5 ABG: pCO2 33 // pO2 105 // HCO3 22.5 // pH 7.41 ABG after extubation: pH 7.25, pCO2 48, pO2 116 Endo: Novolog sliding scale. Monitor sugar. GI: CT Abd/Pelvis on admission shows 8.6 cm sigmoid mass w/ extensive hepatic metastasis. Small hiatal hernia. Possible small diverticulum of the herniated stomach. Colonoscopy on 05/22/17 shows non-bleeding external and internal hemorrhoids. 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 Barium enema on 05/23/17 shows contrast flowed freely through the rectum to the leval of the distal sigmoid colon. At the level of hte distal sigmoid colon, contrast slowly traversed through a very thin and irregular channel to the level of the mid sigmoid at the site of the known sigmoid carcinoma. Contrast did not flow freely past this level. Exam was subsequently terminated. These findings were concerning for a near complete obstruction of the bowel lumen from the adjacent obstructing tumor. CEA elevated @ 11. 6 GI consulted. Oncology consulted. Surgery consulted. S/p ex lap, diverting colostomy, and liver biopsy. Two darvin drains in place w/ 145 cc and 295 cc of output. Colostomy w/ 410 cc output. : Sigmoid colon malignancy Poor urine output. 25 ml/hr. Track BUN/Cr. Renal: Na 131 // K 4.2 // Cl 103 // HCO3 22 // BUN 11 // Cr 0.9 I/O: +1485 Heme/Onc: post op wbc 14.6. Workup for anemia including orders for %Fe saturation, Ferritin, and IRON & TIBC. H/H: 10.8/32.8 MSK: ntd. ID: Ceftriaxone 100 mls @ 100 mls/hr IVPB Q12 H. Metronidazole 250 mg in 50 mls @ 50 mls/hr IVPB Q8H. f/u AM CBC Prophylaxis: DVT: Heparin SC Q8. SCDs GI: Protonix 40 mg IVP Daily Carolina Rico DO PGY1 - Date & Time Date: 05/26/17 Time: 13:04 <Rogelio Remy - Last Filed: 05/26/17 17:42> CCU Objective - Vital Signs / Intake & Output Vital Signs (Last 4 hours): Vital Signs Temp Pulse Resp BP Pulse Ox 05/26/17 16:00 99.5 F 103 H 18 131/73 98 05/26/17 15:00 101 H 16 115/59 L 99 05/26/17 14:09 106 H 05/26/17 14:00 103 H 17 108/64 98 Intake and Output (Last 8hrs): Intake & Output 05/26/17 05/26/17 05/26/17 06:59 14:59 22:59 Intake Total 800 550 100 Output Total 805 120 35 Balance -5 430 65 Intake: Intake, IV Amount 800 550 100 Left Antecubital 800 550 100 Output: Gastric Amount 0 Right Nares 0 Drainage 395 JP1 130 JP2 265 Urine 110 120 35 Urethral (Bailey) 110 120 35 Stool 300 - Medications Active Medications: Active Medications Generic Name Dose Route Start Last Admin Trade Name Freq PRN Reason Stop Dose Admin Albuterol/Ipratropium 3 ml 05/23/17 10:44 Duoneb 3 Mg/0.5 Mg (3 Ml) Ud INH RQ6 PRN Shortness of Breath Metronidazole 250 mg in 50 mls @ 50 mls/hr 05/25/17 18:00 05/26/17 10:22 Flagyl IVPB 50 mls/hr Q8H YANIQUE Administration Ceftriaxone Sodium 1 gm/ 100 mls @ 100 mls/hr 05/25/17 16:00 05/26/17 03:57 Sodium Chloride IVPB 100 mls/hr Q12H YANIQUE Administration Sodium Bicarbonate 75 meq/ 1,075 mls @ 50 mls/hr 05/26/17 12:00 05/26/17 13: 25 Sodium Chloride IV 50 mls/hr .[id number] YANIQUE Administration Insulin Aspart 0 unit 05/26/17 18:00 Novolog SC Q6H YANIQUE Protocol Pantoprazole Sodium 40 mg 05/25/17 18:45 05/26/17 05:59 Protonix Inj IVP 40 mg Q12H YANIQUE Administration - Patient Studies Lab Studies: Microbiology Studies 05/25/17 Unknown MRSA Culture (Admit) - Final Naris MRSA NOT DETECTED 05/25/17 Unknown Gram Stain - Final Peritoneal Fluid Lab Studies 05/26/17 05/26/17 05/26/17 Range/Units 16:47 16:43 15:58 WBC (4.8-10.8) K/uL RBC (3.80-5.20) Mil/uL Hgb (11.0-16.0) g/dL Hct (34.0-47.0) % MCV (81.0-99.0) fL MCH (27.0-31.0) pg MCHC (33.0-37.0) g/dL RDW (11.5-14.5) % Plt Count (130-400) K/uL MPV (7.2-11.7) fL Neut % (Auto) (50.0-75.0) % Lymph % (Auto) (20.0-40.0) % [place] % (Auto) (0.0-10.0) % Eos % (Auto) (0.0-4.0) % Baso % (Auto) (0.0-2.0) % Neut # (1.8-7.0) K/uL Lymph # (1.0-4.3) K/uL [place] # (0.0-0.8) K/uL Eos # (0.0-0.7) K/uL Baso # (0.0-0.2) K/uL Neutrophils % (Manual) (50-75) % Band Neutrophils % (0-2) % Lymphocytes % (Manual) (20-40) % Monocytes % (Manual) (0-10) % Nucleated RBC % (0-0) % Toxic Granulation Platelet Estimate (NORMAL) Anisocytosis (manual) Puncture Site pCO2 (35-45) mm/Hg pO2 (80-100) mm/Hg HCO3 (21-28) mmol/L ABG pH (7.35-7.45) ABG Total CO2 (22-28) mmol/L ABG O2 Saturation (95-98) % ABG Base Excess (-2.0-3.0) mmol/L ABG Hemoglobin (11.7-17.4) g/dL ABG Carboxyhemoglobin (0.5-1.5) % POC ABG HHb (Measured) (0.0-5.0) % ABG Methemoglobin (0.0-3.0) % Candelario Test ABG Potassium (3.6-5.2) mmol/L A-a O2 Difference mm/Hg Respiratory Index Hgb O2 Saturation (95.0-98.0) % Glucose (65-105) mg/dl Lactate (0.7-2.1) mmol/L Vent Mode Mechanical Rate FiO2 % Tidal Volume PEEP Sodium (132-148) mmol/L Potassium (3.6-5.2) mmol/L Chloride (98-107) mmol/L Carbon Dioxide (22-30) mmol/L Anion Gap (10-20) BUN (7-17) mg/dL Creatinine (0.7-1.2) mg/dL Est GFR ( Amer) Est GFR (Non-Af Amer) POC Glucose (mg/dL) 188 H (65-110) mg/dL Random Glucose (65-105) mg/dL Serum Osmolality 290 (272-300) mosm/kg Lactic Acid (0.7-2.1) mmol/L Calcium (8.6-10.4) mg/dl Phosphorus (2.5-4.5) mg/dL Magnesium (1.6-2.3) mg/dL Total Bilirubin (0.2-1.3) mg/dL AST (14-36) U/L ALT (9-52) U/L Alkaline Phosphatase (38-126) U/L Total Protein (6.3-8.3) g/dL Albumin (3.5-5.0) g/dL Globulin (2.2-3.9) gm/dL Albumin/Globulin Ratio (1.0-2.1) Arterial Blood Potassium (3.6-5.2) mmol/L Urine Osmolality 482 (300-1000) mosm/kg Ur Random Creatinine 192.6 mg/dL Ur Random Sodium 33 mmol/L 05/26/17 05/26/17 05/26/17 Range/Units 11:31 11:17 08:41 WBC (4.8-10.8) K/uL RBC (3.80-5.20) Mil/uL Hgb (11.0-16.0) g/dL Hct (34.0-47.0) % MCV (81.0-99.0) fL MCH (27.0-31.0) pg MCHC (33.0-37.0) g/dL RDW (11.5-14.5) % Plt Count (130-400) K/uL MPV (7.2-11.7) fL Neut % (Auto) (50.0-75.0) % Lymph % (Auto) (20.0-40.0) % [place] % (Auto) (0.0-10.0) % Eos % (Auto) (0.0-4.0) % Baso % (Auto) (0.0-2.0) % Neut # (1.8-7.0) K/uL Lymph # (1.0-4.3) K/uL [place] # (0.0-0.8) K/uL Eos # (0.0-0.7) K/uL Baso # (0.0-0.2) K/uL Neutrophils % (Manual) (50-75) % Band Neutrophils % (0-2) % Lymphocytes % (Manual) (20-40) % Monocytes % (Manual) (0-10) % Nucleated RBC % (0-0) % Toxic Granulation Platelet Estimate (NORMAL) Anisocytosis (manual) Puncture Site Rr pCO2 48 H (35-45) mm/Hg pO2 116 H (80-100) mm/Hg HCO3 19.9 L (21-28) mmol/L ABG pH 7.25 L (7.35-7.45) ABG Total CO2 22.5 (22-28) mmol/L ABG O2 Saturation 99.0 H (95-98) % ABG Base Excess -6.4 L (-2.0-3.0) mmol/L ABG Hemoglobin (11.7-17.4) g/dL ABG Carboxyhemoglobin (0.5-1.5) % POC ABG HHb (Measured) (0.0-5.0) % ABG Methemoglobin (0.0-3.0) % Candelario Test Pos ABG Potassium 4.3 (3.6-5.2) mmol/L A-a O2 Difference 109.0 mm/Hg Respiratory Index 0.9 Hgb O2 Saturation (95.0-98.0) % Glucose 187 H (65-105) mg/dl Lactate 1.1 (0.7-2.1) mmol/L Vent Mode Mechanical Rate FiO2 40.0 % Tidal Volume PEEP Sodium 133.0 (132-148) mmol/L Potassium (3.6-5.2) mmol/L Chloride 106.0 (98-107) mmol/L Carbon Dioxide (22-30) mmol/L Anion Gap (10-20) BUN (7-17) mg/dL Creatinine (0.7-1.2) mg/dL Est GFR ( Amer) Est GFR (Non-Af Amer) POC Glucose (mg/dL) 190 H 136 H (65-110) mg/dL Random Glucose (65-105) mg/dL Serum Osmolality (272-300) mosm/kg Lactic Acid (0.7-2.1) mmol/L Calcium (8.6-10.4) mg/dl Phosphorus (2.5-4.5) mg/dL Magnesium (1.6-2.3) mg/dL Total Bilirubin (0.2-1.3) mg/dL AST (14-36) U/L ALT (9-52) U/L Alkaline Phosphatase (38-126) U/L Total Protein (6.3-8.3) g/dL Albumin (3.5-5.0) g/dL Globulin (2.2-3.9) gm/dL Albumin/Globulin Ratio (1.0-2.1) Arterial Blood Potassium 4.3 (3.6-5.2) mmol/L Urine Osmolality (300-1000) mosm/kg Ur Random Creatinine mg/dL Ur Random Sodium mmol/L 05/26/17 05/26/17 05/26/17 Range/Units 06:11 06:11 06:11 WBC 14.6 H D (4.8-10.8) K/uL RBC 3.86 (3.80-5.20) Mil/uL Hgb 10.8 L (11.0-16.0) g/dL Hct 32.8 L (34.0-47.0) % MCV 84.9 (81.0-99.0) fL MCH 28.0 (27.0-31.0) pg MCHC 33.0 (33.0-37.0) g/dL RDW 18.2 H (11.5-14.5) % Plt Count 294 (130-400) K/uL MPV 7.7 (7.2-11.7) fL Neut % (Auto) 85.2 H (50.0-75.0) % Lymph % (Auto) 9.7 L (20.0-40.0) % [place] % (Auto) 5.0 (0.0-10.0) % Eos % (Auto) 0.0 (0.0-4.0) % Baso % (Auto) 0.1 (0.0-2.0) % Neut # 12.4 H (1.8-7.0) K/uL Lymph # 1.4 (1.0-4.3) K/uL [place] # 0.7 (0.0-0.8) K/uL Eos # 0.0 (0.0-0.7) K/uL Baso # 0.0 (0.0-0.2) K/uL Neutrophils % (Manual) 67 (50-75) % Band Neutrophils % 21 H* (0-2) % Lymphocytes % (Manual) 7 L (20-40) % Monocytes % (Manual) 5 (0-10) % Nucleated RBC % 1 H (0-0) % Toxic Granulation Present Platelet Estimate Normal (NORMAL) Anisocytosis (manual) Moderate Puncture Site pCO2 (35-45) mm/Hg pO2 (80-100) mm/Hg HCO3 (21-28) mmol/L ABG pH (7.35-7.45) ABG Total CO2 (22-28) mmol/L ABG O2 Saturation (95-98) % ABG Base Excess (-2.0-3.0) mmol/L ABG Hemoglobin (11.7-17.4) g/dL ABG Carboxyhemoglobin (0.5-1.5) % POC ABG HHb (Measured) (0.0-5.0) % ABG Methemoglobin (0.0-3.0) % Candelario Test ABG Potassium (3.6-5.2) mmol/L A-a O2 Difference mm/Hg Respiratory Index Hgb O2 Saturation (95.0-98.0) % Glucose (65-105) mg/dl Lactate (0.7-2.1) mmol/L Vent Mode Mechanical Rate FiO2 % Tidal Volume PEEP Sodium 131 L (132-148) mmol/L Potassium 4.2 (3.6-5.2) mmol/L Chloride 103 (98-107) mmol/L Carbon Dioxide 22 (22-30) mmol/L Anion Gap 10 (10-20) BUN 11 (7-17) mg/dL Creatinine 0.9 (0.7-1.2) mg/dL Est GFR ( Amer) > 60 Est GFR (Non-Af Amer) 60 POC Glucose (mg/dL) (65-110) mg/dL Random Glucose 113 H (65-105) mg/dL Serum Osmolality (272-300) mosm/kg Lactic Acid 2.0 (0.7-2.1) mmol/L Calcium 7.1 L (8.6-10.4) mg/dl Phosphorus 3.0 (2.5-4.5) mg/dL Magnesium 1.3 L (1.6-2.3) mg/dL Total Bilirubin 1.1 (0.2-1.3) mg/dL AST 71 H D (14-36) U/L ALT 19 (9-52) U/L Alkaline Phosphatase 101 (38-126) U/L Total Protein 4.7 L (6.3-8.3) g/dL Albumin 2.3 L (3.5-5.0) g/dL Globulin 2.5 (2.2-3.9) gm/dL Albumin/Globulin Ratio 0.9 L (1.0-2.1) Arterial Blood Potassium (3.6-5.2) mmol/L Urine Osmolality (300-1000) mosm/kg Ur Random Creatinine mg/dL Ur Random Sodium mmol/L 05/26/17 05/26/17 05/25/17 Range/Units 05:06 04:08 23:44 WBC (4.8-10.8) K/uL RBC (3.80-5.20) Mil/uL Hgb (11.0-16.0) g/dL Hct (34.0-47.0) % MCV (81.0-99.0) fL MCH (27.0-31.0) pg MCHC (33.0-37.0) g/dL RDW (11.5-14.5) % Plt Count (130-400) K/uL MPV (7.2-11.7) fL Neut % (Auto) (50.0-75.0) % Lymph % (Auto) (20.0-40.0) % [place] % (Auto) (0.0-10.0) % Eos % (Auto) (0.0-4.0) % Baso % (Auto) (0.0-2.0) % Neut # (1.8-7.0) K/uL Lymph # (1.0-4.3) K/uL [place] # (0.0-0.8) K/uL Eos # (0.0-0.7) K/uL Baso # (0.0-0.2) K/uL Neutrophils % (Manual) (50-75) % Band Neutrophils % (0-2) % Lymphocytes % (Manual) (20-40) % Monocytes % (Manual) (0-10) % Nucleated RBC % (0-0) % Toxic Granulation Platelet Estimate (NORMAL) Anisocytosis (manual) Puncture Site R bra pCO2 33 L (35-45) mm/Hg pO2 105 H (80-100) mm/Hg HCO3 22.5 (21-28) mmol/L ABG pH 7.41 (7.35-7.45) ABG Total CO2 21.9 L (22-28) mmol/L ABG O2 Saturation 98.8 H (95-98) % ABG Base Excess -3.1 L (-2.0-3.0) mmol/L ABG Hemoglobin 10.8 L (11.7-17.4) g/dL ABG Carboxyhemoglobin 1.8 H (0.5-1.5) % POC ABG HHb (Measured) 1.2 (0.0-5.0) % ABG Methemoglobin 1.7 (0.0-3.0) % Candelario Test Na ABG Potassium (3.6-5.2) mmol/L A-a O2 Difference 210.0 mm/Hg Respiratory Index 2.0 Hgb O2 Saturation 95.3 (95.0-98.0) % Glucose (65-105) mg/dl Lactate (0.7-2.1) mmol/L Vent Mode Prvc Mechanical Rate 18 FiO2 50.0 % Tidal Volume 450 PEEP 5 Sodium (132-148) mmol/L Potassium (3.6-5.2) mmol/L Chloride (98-107) mmol/L Carbon Dioxide (22-30) mmol/L Anion Gap (10-20) BUN (7-17) mg/dL Creatinine (0.7-1.2) mg/dL Est GFR ( Amer) Est GFR (Non-Af Amer) POC Glucose (mg/dL) 112 H 172 H (65-110) mg/dL Random Glucose (65-105) mg/dL Serum Osmolality (272-300) mosm/kg Lactic Acid (0.7-2.1) mmol/L Calcium (8.6-10.4) mg/dl Phosphorus (2.5-4.5) mg/dL Magnesium (1.6-2.3) mg/dL Total Bilirubin (0.2-1.3) mg/dL AST (14-36) U/L ALT (9-52) U/L Alkaline Phosphatase (38-126) U/L Total Protein (6.3-8.3) g/dL Albumin (3.5-5.0) g/dL Globulin (2.2-3.9) gm/dL Albumin/Globulin Ratio (1.0-2.1) Arterial Blood Potassium (3.6-5.2) mmol/L Urine Osmolality (300-1000) mosm/kg Ur Random Creatinine mg/dL Ur Random Sodium mmol/L 05/25/17 Range/Units 20:46 WBC (4.8-10.8) K/uL RBC (3.80-5.20) Mil/uL Hgb (11.0-16.0) g/dL Hct (34.0-47.0) % MCV (81.0-99.0) fL MCH (27.0-31.0) pg MCHC (33.0-37.0) g/dL RDW (11.5-14.5) % Plt Count (130-400) K/uL MPV (7.2-11.7) fL Neut % (Auto) (50.0-75.0) % Lymph % (Auto) (20.0-40.0) % [place] % (Auto) (0.0-10.0) % Eos % (Auto) (0.0-4.0) % Baso % (Auto) (0.0-2.0) % Neut # (1.8-7.0) K/uL Lymph # (1.0-4.3) K/uL [place] # (0.0-0.8) K/uL Eos # (0.0-0.7) K/uL Baso # (0.0-0.2) K/uL Neutrophils % (Manual) (50-75) % Band Neutrophils % (0-2) % Lymphocytes % (Manual) (20-40) % Monocytes % (Manual) (0-10) % Nucleated RBC % (0-0) % Toxic Granulation Platelet Estimate (NORMAL) Anisocytosis (manual) Puncture Site pCO2 (35-45) mm/Hg pO2 (80-100) mm/Hg HCO3 (21-28) mmol/L ABG pH (7.35-7.45) ABG Total CO2 (22-28) mmol/L ABG O2 Saturation (95-98) % ABG Base Excess (-2.0-3.0) mmol/L ABG Hemoglobin (11.7-17.4) g/dL ABG Carboxyhemoglobin (0.5-1.5) % POC ABG HHb (Measured) (0.0-5.0) % ABG Methemoglobin (0.0-3.0) % Candelario Test ABG Potassium (3.6-5.2) mmol/L A-a O2 Difference mm/Hg Respiratory Index Hgb O2 Saturation (95.0-98.0) % Glucose (65-105) mg/dl Lactate (0.7-2.1) mmol/L Vent Mode Mechanical Rate FiO2 % Tidal Volume PEEP Sodium (132-148) mmol/L Potassium (3.6-5.2) mmol/L Chloride (98-107) mmol/L Carbon Dioxide (22-30) mmol/L Anion Gap (10-20) BUN (7-17) mg/dL Creatinine (0.7-1.2) mg/dL Est GFR ( Amer) Est GFR (Non-Af Amer) POC Glucose (mg/dL) 207 H (65-110) mg/dL Random Glucose (65-105) mg/dL Serum Osmolality (272-300) mosm/kg Lactic Acid (0.7-2.1) mmol/L Calcium (8.6-10.4) mg/dl Phosphorus (2.5-4.5) mg/dL Magnesium (1.6-2.3) mg/dL Total Bilirubin (0.2-1.3) mg/dL AST (14-36) U/L ALT (9-52) U/L Alkaline Phosphatase (38-126) U/L Total Protein (6.3-8.3) g/dL Albumin (3.5-5.0) g/dL Globulin (2.2-3.9) gm/dL Albumin/Globulin Ratio (1.0-2.1) Arterial Blood Potassium (3.6-5.2) mmol/L Urine Osmolality (300-1000) mosm/kg Ur Random Creatinine mg/dL Ur Random Sodium mmol/L Laboratory Results - last 24 hr 05/25/17 05/25/17 05/26/17 20:46 23:44 04:08 WBC RBC Hgb Hct MCV MCH MCHC RDW Plt Count MPV Neut % (Auto) Lymph % (Auto) [place] % (Auto) Eos % (Auto) Baso % (Auto) Neut # Lymph # [place] # Eos # Baso # Neutrophils % (Manual) Band Neutrophils % Lymphocytes % (Manual) Monocytes % (Manual) Nucleated RBC % Toxic Granulation Platelet Estimate Anisocytosis (manual) Puncture Site pCO2 pO2 HCO3 ABG pH ABG Total CO2 ABG O2 Saturation ABG Base Excess ABG Hemoglobin ABG Carboxyhemoglobin POC ABG HHb (Measured) ABG Methemoglobin Candelario Test ABG Potassium A-a O2 Difference Respiratory Index Hgb O2 Saturation Glucose Lactate Vent Mode Mechanical Rate FiO2 Tidal Volume PEEP Sodium Potassium Chloride Carbon Dioxide Anion Gap BUN Creatinine Est GFR ( Amer) Est GFR (Non-Af Amer) POC Glucose (mg/dL) 207 H 172 H 112 H Random Glucose Serum Osmolality Lactic Acid Calcium Phosphorus Magnesium Total Bilirubin AST ALT Alkaline Phosphatase Total Protein Albumin Globulin Albumin/Globulin Ratio Arterial Blood Potassium Urine Osmolality Ur Random Creatinine Ur Random Sodium 05/26/17 05/26/17 05/26/17 05:06 06:11 06:11 WBC 14.6 H D RBC 3.86 Hgb 10.8 L Hct 32.8 L MCV 84.9 MCH 28.0 MCHC 33.0 RDW 18.2 H Plt Count 294 MPV 7.7 Neut % (Auto) 85.2 H Lymph % (Auto) 9.7 L [place] % (Auto) 5.0 Eos % (Auto) 0.0 Baso % (Auto) 0.1 Neut # 12.4 H Lymph # 1.4 [place] # 0.7 Eos # 0.0 Baso # 0.0 Neutrophils % (Manual) 67 Band Neutrophils % 21 H* Lymphocytes % (Manual) 7 L Monocytes % (Manual) 5 Nucleated RBC % 1 H Toxic Granulation Present Platelet Estimate Normal Anisocytosis (manual) Moderate Puncture Site R bra pCO2 33 L pO2 105 H HCO3 22.5 ABG pH 7.41 ABG Total CO2 21.9 L ABG O2 Saturation 98.8 H ABG Base Excess -3.1 L ABG Hemoglobin 10.8 L ABG Carboxyhemoglobin 1.8 H POC ABG HHb (Measured) 1.2 ABG Methemoglobin 1.7 Candelario Test Na ABG Potassium A-a O2 Difference 210.0 Respiratory Index 2.0 Hgb O2 Saturation 95.3 Glucose Lactate Vent Mode Prvc Mechanical Rate 18 FiO2 50.0 Tidal Volume 450 PEEP 5 Sodium Potassium Chloride Carbon Dioxide Anion Gap BUN Creatinine Est GFR ( Amer) Est GFR (Non-Af Amer) POC Glucose (mg/dL) Random Glucose Serum Osmolality Lactic Acid 2.0 Calcium Phosphorus Magnesium Total Bilirubin AST ALT Alkaline Phosphatase Total Protein Albumin Globulin Albumin/Globulin Ratio Arterial Blood Potassium Urine Osmolality Ur Random Creatinine Ur Random Sodium 05/26/17 05/26/17 05/26/17 06:11 08:41 11:17 WBC RBC Hgb Hct MCV MCH MCHC RDW Plt Count MPV Neut % (Auto) Lymph % (Auto) [place] % (Auto) Eos % (Auto) Baso % (Auto) Neut # Lymph # [place] # Eos # Baso # Neutrophils % (Manual) Band Neutrophils % Lymphocytes % (Manual) Monocytes % (Manual) Nucleated RBC % Toxic Granulation Platelet Estimate Anisocytosis (manual) Puncture Site pCO2 pO2 HCO3 ABG pH ABG Total CO2 ABG O2 Saturation ABG Base Excess ABG Hemoglobin ABG Carboxyhemoglobin POC ABG HHb (Measured) ABG Methemoglobin Candelario Test ABG Potassium A-a O2 Difference Respiratory Index Hgb O2 Saturation Glucose Lactate Vent Mode Mechanical Rate FiO2 Tidal Volume PEEP Sodium 131 L Potassium 4.2 Chloride 103 Carbon Dioxide 22 Anion Gap 10 BUN 11 Creatinine 0.9 Est GFR ( Amer) > 60 Est GFR (Non-Af Amer) 60 POC Glucose (mg/dL) 136 H 190 H Random Glucose 113 H Serum Osmolality Lactic Acid Calcium 7.1 L Phosphorus 3.0 Magnesium 1.3 L Total Bilirubin 1.1 AST 71 H D ALT 19 Alkaline Phosphatase 101 Total Protein 4.7 L Albumin 2.3 L Globulin 2.5 Albumin/Globulin Ratio 0.9 L Arterial Blood Potassium Urine Osmolality Ur Random Creatinine Ur Random Sodium 05/26/17 05/26/17 05/26/17 11:31 15:58 16:43 WBC RBC Hgb Hct MCV MCH MCHC RDW Plt Count MPV Neut % (Auto) Lymph % (Auto) [place] % (Auto) Eos % (Auto) Baso % (Auto) Neut # Lymph # [place] # Eos # Baso # Neutrophils % (Manual) Band Neutrophils % Lymphocytes % (Manual) Monocytes % (Manual) Nucleated RBC % Toxic Granulation Platelet Estimate Anisocytosis (manual) Puncture Site Rr pCO2 48 H pO2 116 H HCO3 19.9 L ABG pH 7.25 L ABG Total CO2 22.5 ABG O2 Saturation 99.0 H ABG Base Excess -6.4 L ABG Hemoglobin ABG Carboxyhemoglobin POC ABG HHb (Measured) ABG Methemoglobin Candelario Test Pos ABG Potassium 4.3 A-a O2 Difference 109.0 Respiratory Index 0.9 Hgb O2 Saturation Glucose 187 H Lactate 1.1 Vent Mode Mechanical Rate FiO2 40.0 Tidal Volume PEEP Sodium 133.0 Potassium Chloride 106.0 Carbon Dioxide Anion Gap BUN Creatinine Est GFR ( Amer) Est GFR (Non-Af Amer) POC Glucose (mg/dL) 188 H Random Glucose Serum Osmolality 290 Lactic Acid Calcium Phosphorus Magnesium Total Bilirubin AST ALT Alkaline Phosphatase Total Protein Albumin Globulin Albumin/Globulin Ratio Arterial Blood Potassium 4.3 Urine Osmolality Ur Random Creatinine Ur Random Sodium 05/26/17 16:47 WBC RBC Hgb Hct MCV MCH MCHC RDW Plt Count MPV Neut % (Auto) Lymph % (Auto) [place] % (Auto) Eos % (Auto) Baso % (Auto) Neut # Lymph # [place] # Eos # Baso # Neutrophils % (Manual) Band Neutrophils % Lymphocytes % (Manual) Monocytes % (Manual) Nucleated RBC % Toxic Granulation Platelet Estimate Anisocytosis (manual) Puncture Site pCO2 pO2 HCO3 ABG pH ABG Total CO2 ABG O2 Saturation ABG Base Excess ABG Hemoglobin ABG Carboxyhemoglobin POC ABG HHb (Measured) ABG Methemoglobin Candelario Test ABG Potassium A-a O2 Difference Respiratory Index Hgb O2 Saturation Glucose Lactate Vent Mode Mechanical Rate FiO2 Tidal Volume PEEP Sodium Potassium Chloride Carbon Dioxide Anion Gap BUN Creatinine Est GFR ( Amer) Est GFR (Non-Af Amer) POC Glucose (mg/dL) Random Glucose Serum Osmolality Lactic Acid Calcium Phosphorus Magnesium Total Bilirubin AST ALT Alkaline Phosphatase Total Protein Albumin Globulin Albumin/Globulin Ratio Arterial Blood Potassium Urine Osmolality 482 Ur Random Creatinine 192.6 Ur Random Sodium 33 Critical Care Progress Note - Nutrition Nutrition: Nutrition Category Date Time Status NPO Diet [DIET] Diets 05/24/17 Dinner Active Assessment/Plan - Assessment and Plan (Free Text) Plan: Above patient seen and examined at bedside. Patient tolerated CPAP and was extubated -avoid large doses of Opoids -metastatic cancer -urine output low: check FenA and US abdomen r/o obstruction, consider renal consult -prognosis poor consider palliative/hospice eval
[2017-05-26] MEDS ORDERED: Enoxaparin 30 mg Syringe SC SCH (10:00)
[2017-05-26] MEDS ORDERED: Sodium Chloride 0.9% 1,000 ML IV SCH (10:04)
[2017-05-26 11:34] LABS: ABG ALLEN TEST POS; ARTERIAL BLOOD GAS HCO3 19.9 mmol/L (21-28); ARTERIAL BLOOD GAS PCO2 48 mm/Hg (35-45); ARTERIAL BLOOD GAS PH 7.25 (7.35-7.45); ARTERIAL BLOOD GAS PO2 116 mm/Hg (80-100); ARTERIAL BLOOD GAS TCO2 22.5 mmol/L (22-28)
--- NOTE | 2017-05-26 14:19 | US ---
PROCEDURE: Ultrasound of the Kidneys HISTORY: minimal urine output COMPARISON: CT abdomen and pelvis with IV contrast performed 05/19/17 TECHNIQUE: Sonogram of the kidneys. FINDINGS: Examination markedly limited. RIGHT KIDNEY: Measures: 8.0 x 5.1 x 5.2 cm. Upper pole renal cyst measures approximately 10.4 x 8.3 x 9.2 cm. No obstructing calculus or hydronephrosis identified. LEFT KIDNEY: Measures: 8.3 x 4.9 x 5.6 cm. Upper pole renal cyst measures approximately 2.2 x 1.4 x 1.6 cm. No obstructing calculus or hydronephrosis identified. OTHER FINDINGS: Incidental note is made of multiple echogenic lesions are noted within the liver, indeterminate. Incidental note is made of small left pleural effusion. IMPRESSION: Right upper pole renal cyst measures approximately 10.4 x 8.3 x 9.2 cm. Left upper pole renal cyst measures approximately 2.2 x 1.4 x 1.6 cm. Partially imaged liver demonstrates numerous echogenic indeterminate hepatic masses; findings worrisome for metastatic disease. Incidental note is made of small left pleural effusion.
[2017-05-26 16:58] LABS: CREATININE, RANDOM URINE 192.6 mg/dL
--- NOTE | 2017-05-26 18:12 | CP.PCM.PN ---
Subjective - Date & Time of Evaluation Date of Evaluation: 05/26/17 Time of Evaluation: 17:45 - Subjective Subjective: 86 year old female with a PMHx of DM 2 and HTN who presented 05/19/17 with diffusely radiating, 10/10, sharp LLQ abdominal pain x 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 She was admitted for further treatment and evaluation Currently upon FULL ROS NO chest pain NO palpitations (+) Some soreness in throat Abdominal pain is controlled NO headache NO changes in vision NO n/v NO changes in hearing Assessment and Plan: 1). Sigmoid colon mass/Liver lesion likely mets/Weight loss and abdominal pain -CT-Abd/Pelvis on admission showed 8.6 cm sigmoid mass with extensive hepatic metastasis. Bilateral renal cysts with large right upper pole renal cyst. Small bilateral pleural effusion and small pericardial effusion. Small hiatal hernia. Possible small diverticulum of the herniated stomach CEA elevated @ 11.6. (Normal = 0-3.0) GI consult Dr Foster ,appreciated Dr Bright oncology consult - Recs appreciated Surgery consult Dr Richard-appreciated Colonscopy (05/22/17): Non-bleeding external and internal hemorrhoids. 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 Biopsied F/U on Pathology report from biopsy. Morphine 2 Q6H IV PRN for pain control Barium Enema (05/23/2017): Contrast flowed freely through the rectum to the level of the distal sigmoid colon. At the level of the distal sigmoid colon, contrast slowly traversed through a very thin and irregular channel to the level of the mid sigmoid at the site of the known sigmoid carcinoma. Contrast did not flow freely past this level. Exam was subsequently terminated. These findings were concerning for a near complete obstruction of the bowel lumen from the adjacent obstructing tumor. Surgery Dr. Richard Hemotology/Oncology Dr. Bright GI Dr. Foster : Patient underwent lapartomy with diverting colostomy and liver biopsy. She was found to have the colonic mass invading the bladder and therefore was not entirely resectable Rocephin 1 mg IV Q12H (05/25/17) Flagyl 250 mg IV Q8H (05/25/17) Awaiting pathology report from surgery 2). Respiratory Acidosis Patient was extubated on 05/26/17 and placed on BiPap Bicarb Drip 3). DM 2 Aspart ISS Q6H Low Dose Accuchecks 4).Hypertension HOLDING Labetolol 100mg Q12H, Enalapril 15 mg Daily, and Cardizem [id number] Daily 5). Anemia Ordered Iron Sat, Iron/TIBC, Ferritin, and Reticulocyte Count S/P Transfusion upon admission H/H Stable Cont. to monitor 6). Pericardial effusion/cardiomegaly Cardiology Consulted (Dr. Portillo) - help appreciated ECHO (05/20/17): Diastolic Dysfunction Grade I-abnormal relaxation pattern, Trace TR and MR 7). Bilateral Renal Cysts U/S Renal 05/26/17: Right Upper Pole renal cyst measures approximately 10.4x8.3x9.2 cm. Left upper pole renal cyst measures 2.2x1.4x1.6 cm Will need follow up U/S in 6 months 8). DVT and GI prophylaxis HOLDING Heparin Protonix 40 mg IV Q12H F/U 24 hour urine study. Spoke with Son Dominick Mckoy ([phone]) who was at bedside. He provided a copy of PROXY DIRECTIVE which designates renetta Prabhakar ([phone] ) as POA/Health Care Proxy and patient is FULL CODE. Please see this document that was placed in the front of the chart. I have ordered Palliative Care Consult with Nurse Durbin and Son Dominick Mckoy was made aware to help determine goals of care for patient. Arya Remy D.O. Objective - Vital Signs/Intake and Output Vital Signs (last 24 hours): Temp Pulse Resp BP Pulse Ox 99.5 F 101 H 18 122/64 99 05/26/17 16:00 05/26/17 18:00 05/26/17 18:00 05/26/17 18:00 05/26/17 18:00 Intake and Output: 05/26/17 05/26/17 06:59 18:59 Intake Total 2100 750 Output Total 910 185 Balance 1190 565 - Medications Medications: Current Medications Albuterol/Ipratropium (Duoneb 3 Mg/0.5 Mg (3 Ml) Ud) 3 ml INH RQ6 PRN PRN Reason: Shortness of Breath Metronidazole (Flagyl) 250 mg in 50 mls @ 50 mls/hr IVPB Q8H [facility] Last Admin: 05/26/17 17:54 Dose: 50 mls/hr Ceftriaxone Sodium 1 gm/ (Sodium Chloride) 100 mls @ 100 mls/hr IVPB Q12H [facility] Last Admin: 05/26/17 17:00 Dose: 100 mls/hr Sodium Bicarbonate 75 meq/ (Sodium Chloride) 1,075 mls @ 50 mls/hr IV .[id number] [facility] Last Admin: 05/26/17 13:25 Dose: 50 mls/hr Insulin Aspart (Novolog) 0 unit SC Q6H YANIQUE PRN Reason: Protocol Last Admin: 05/26/17 17:56 Dose: 1 unit Pantoprazole Sodium (Protonix Inj) 40 mg IVP Q12H [facility] Last Admin: 05/26/17 17:58 Dose: 40 mg - Labs Labs: 05/26/17 06:11 05/26/17 06:11 PT 14.5 SECONDS (9.7-12.2) H 05/25/17 07:51 INR 1.3 05/25/17 07:51 APTT 31 SECONDS (21-34) 05/25/17 07:51
[2017-05-26] MEDS: Albuterol-Ipratrop 3 mg / 0.5 (3 ml) UD INH PRN (19:49)
--- NOTE | 2017-05-26 22:10 | PN ---
DATE: LOCATION: ICU 11. SUBJECTIVE: This is an 86-year-old female seen and examined in rounds post surgically with status post left colostomy due to sigmoid mass lesion, sigmoid CA. It has to be mentioned that this case discussed at length again with Dr. Richard before and post surgically including today and the patient is still having intermittent period of sharp abdominal pain, appeared to be somewhat awake, remained on vent, this subsequently became on BiPAP for weaning off the ventilator. She was extubated by Dr. Genet Remy, the valve setter. The entire chart is reviewed including, but not limited to, the most recent lab and radiology study results, current and the previous medication list, current and the previous medical events, and today's labs showed white blood cell elevated to 14.6 with low hemoglobin 10.8, hematocrit 32.8 but normal platelet count with initially abnormal ABGs. Sodium is still low 131, blood glucose level 166 with low calcium 7.1, low magnesium 1.3, slightly elevated AST 71, low albumin 2.3, low total protein 4.7. Most recent chest x-ray done today, report and films are seen, indicative of possible persistent left lower lobe pneumonia with pleural effusion. Renal ultrasound also done today, official report seen, well with large right upper pole renal cyst as well as left upper pole renal cyst with hepatic mass lesion. It has to be mentioned that the official pathology report from the soft tissue liver as well as the colon lesion is still pending the actual pathology final report. PHYSICAL EXAMINATION: GENERAL: An 86-year-old female. VITAL SIGNS: Low-grade temperature of 99.5, pulse of 100, respiratory rate 20 to 22, blood pressure 120/68. HEENT: Showed mildly pale dry oral mucoid membrane. Nonicteric sclerae. LUNGS: Few scattered crepitation with decreased air entry at bases. HEART: Positive S1 and S2. ABDOMEN: With clean dressing, no bowel sounds and no reported bowel movement. IMPRESSION: 1. Near complete colon obstruction at the sigmoid colon by a sigmoid mass, cancer of the colon. 2. Status post partial colon resection. 3. Liver metastatic lesion. 4. Bilateral renal cysts. 5. Known history of hypertension. 6. Electrolyte imbalance. 7. Malnutrition with hypoalbuminemia. SUGGESTION: 1. Agree with your plan. 2. Central hyperalimentation. 3. Correct any underlying electrolyte imbalance. 4. Further recommendation to follow. Sp Leblanc MD
[2017-05-27] MEDS: metroNIDAZOLE IV 250mg/50 ml 250 MG/50 ML BAG IVPB SCH (01:14)
[2017-05-27] MEDS: (Novolog) Insulin Aspart, Recombinant 100 u/ml 10 ml vial SC SCH ×3 (05:58→17:28)
[2017-05-27 06:38] LABS: HEMOGLOBIN 10.6 g/dL (11.0-16.0); LYMPH # 1.1 K/uL (1.0-4.3); LYMPH % 6.5 % (20.0-40.0); MEAN CELL VOLUME 85.3 fL (81.0-99.0); MEAN CORPUSCULAR HEMOGLOBIN 28.2 pg (27.0-31.0); MEAN CORPUSCULAR HGB CONC 33.1 g/dL (33.0-37.0); MONO % 5.9 % (0.0-10.0); NEUT # 14.3 K/uL (1.8-7.0); NEUT % 87.6 % (50.0-75.0); PLATELET COUNT 237 K/uL (130-400); RBC 3.75 Mil/uL (3.80-5.20); RED CELL DISTRIBUTION WIDTH 18.4 % (11.5-14.5); WHITE BLOOD COUNT 16.3 K/uL (4.8-10.8)
[2017-05-27 07:02] LABS: ALB/GLOB RATIO 0.9 (1.0-2.1); ALBUMIN 2.3 g/dL (3.5-5.0); CALCIUM 7.6 mg/dl (8.6-10.4)
[2017-05-27] MEDS: Albuterol-Ipratrop 3 mg / 0.5 (3 ml) UD INH PRN ×2 (07:34→13:38)
[2017-05-27 08:49] LABS: BANDS 11 % (0-2); LYMPHOCYTE 4 % (20-40); MONOCYTE 3 % (0-10); NEUTROPHIL 82 % (50-75); PLATELET ESTIMATE NORMAL (NORMAL); TOTAL CELLS COUNTED 100
[2017-05-27 08:52] LABS: ANISOCYTOSIS SLIGHT; HYPOCHROMIC SLIGHT
[2017-05-27 08:53] LABS: LARGE PLATELETS PRESENT; POLYCHROMIC SLIGHT; TOXIC GRANULATION PRESENT
--- NOTE | 2017-05-27 09:58 | CP.CCUPN ---
CCU Subjective - Physician Review Events Since Last Encounter (Free Text): 05/27/17 09:58 86 female with a history of diabetes hypertension admitted with sigmoid mass obstruction, status post diverting colostomy under laparotomy. Patient also received a liver biopsy. Patient is currently sitting up. Patient is awake, responding. Sitting up. On high flow oxygen. Vital signs stable. Chest good air entry. Abdomen postoperative. Laboratory Condition is stable Continue the current treatment. Surgical follow-up. Patient can be transferred to medical floor. Surgical follow-up CCU Objective - Vital Signs / Intake & Output Vital Signs (Last 4 hours): Vital Signs Temp Pulse Resp BP Pulse Ox 05/27/17 08:00 98.7 F 115 H 15 100 05/27/17 07:15 113 H 15 144/82 98 05/27/17 07:00 113 H 16 99 05/27/17 06:14 108 H 12 141/75 99 05/27/17 06:00 106 H 14 99 Intake and Output (Last 8hrs): Intake & Output 05/26/17 05/27/17 05/27/17 22:59 06:59 14:59 Intake Total 600 550 100 Output Total 810 1205 100 Balance -210 -655 0 Intake: Intake, IV Amount 600 550 100 Left Antecubital 450 400 100 Left Wrist 150 150 Output: Gastric Amount 15 Right Nares 15 Drainage 290 95 JP1 110 35 JP2 180 60 Urine 120 1045 100 Urethral (Bailey) 120 1045 100 Stool 400 50 - Medications Active Medications: Active Medications Generic Name Dose Route Start Last Admin Trade Name Freq PRN Reason Stop Dose Admin Albuterol/Ipratropium 3 ml 05/23/17 10:44 05/27/17 07:34 Duoneb 3 Mg/0.5 Mg (3 Ml) Ud INH 3 ml RQ6 PRN Administration Shortness of Breath Hydromorphone HCl 0.5 mg 05/27/17 08:00 05/27/17 08:18 Dilaudid IVP 0.5 mg Q4H PRN Administration Pain, moderate (4-7) Ceftriaxone Sodium 1 gm/ 100 mls @ 100 mls/hr 05/25/17 16:00 05/27/17 04:35 Sodium Chloride IVPB 100 mls/hr Q12H YANIQUE Administration Sodium Bicarbonate 75 meq/ 1,075 mls @ 50 mls/hr 05/26/17 12:00 05/26/17 13: 25 Sodium Chloride IV 50 mls/hr .[id number] YANIQUE Administration Ciprofloxacin 400 mg in 200 mls @ 133 mls/hr 05/27/17 10:00 05/27/17 09:49 Cipro 400mg/200ml Dsw IVPB 05/27/17 11:30 133 mls/hr ONCE ONE Administration Metronidazole 500 mg in 100 mls @ 100 mls/hr 05/27/17 12:00 Flagyl IVPB Q6 YANIQUE Ciprofloxacin 400 mg in 200 mls @ 133 mls/hr 05/27/17 08:15 Cipro 400mg/200ml Dsw IVPB Q12H YANIQUE Insulin Aspart 0 unit 05/26/17 18:00 05/27/17 05:58 Novolog SC 1 unit Q6H YANIQUE Administration Protocol Pantoprazole Sodium 40 mg 05/25/17 18:45 05/27/17 05:48 Protonix Inj IVP 40 mg Q12H YANIQUE Administration - Patient Studies Lab Studies: Microbiology Studies 05/25/17 Unknown MRSA Culture (Admit) - Final Naris MRSA NOT DETECTED Lab Studies 05/27/17 05/27/17 05/27/17 Range/Units 06:29 06:29 05:51 WBC 16.3 H (4.8-10.8) K/uL RBC 3.75 L (3.80-5.20) Mil/uL Hgb 10.6 L (11.0-16.0) g/dL Hct 32.0 L (34.0-47.0) % MCV 85.3 (81.0-99.0) fL MCH 28.2 (27.0-31.0) pg MCHC 33.1 (33.0-37.0) g/dL RDW 18.4 H (11.5-14.5) % Plt Count 237 (130-400) K/uL MPV 8.0 (7.2-11.7) fL Neut % (Auto) 87.6 H (50.0-75.0) % Lymph % (Auto) 6.5 L (20.0-40.0) % [place] % (Auto) 5.9 (0.0-10.0) % Eos % (Auto) 0.0 (0.0-4.0) % Baso % (Auto) 0.0 (0.0-2.0) % Neut # 14.3 H (1.8-7.0) K/uL Lymph # 1.1 (1.0-4.3) K/uL [place] # 1.0 H (0.0-0.8) K/uL Eos # 0.0 (0.0-0.7) K/uL Baso # 0.0 (0.0-0.2) K/uL Neutrophils % (Manual) 82 H (50-75) % Band Neutrophils % 11 H* (0-2) % Lymphocytes % (Manual) 4 L (20-40) % Monocytes % (Manual) 3 (0-10) % Toxic Granulation Present Platelet Estimate Normal (NORMAL) Large Platelets Present Polychromasia Slight Hypochromasia (manual) Slight Anisocytosis (manual) Slight Puncture Site pCO2 (35-45) mm/Hg pO2 (80-100) mm/Hg HCO3 (21-28) mmol/L ABG pH (7.35-7.45) ABG Total CO2 (22-28) mmol/L ABG O2 Saturation (95-98) % ABG Base Excess (-2.0-3.0) mmol/L [place] Test ABG Potassium (3.6-5.2) mmol/L A-a O2 Difference mm/Hg Respiratory Index Sodium 132 (132-148) mmol/l Chloride 101 (98-107) mmol/L Glucose (65-105) mg/dl Lactate (0.7-2.1) mmol/L FiO2 % Potassium 4.0 (3.6-5.2) mmol/L Carbon Dioxide 23 (22-30) mmol/L Anion Gap 11 (10-20) BUN 17 (7-17) mg/dL Creatinine 1.2 (0.7-1.2) mg/dL Est GFR ( Amer) 52 Est GFR (Non-Af Amer) 43 POC Glucose (mg/dL) 190 H (65-110) mg/dL Random Glucose 190 H (65-105) mg/dL Serum Osmolality (272-300) mosm/kg Calcium 7.6 L (8.6-10.4) mg/dl Total Bilirubin 0.6 (0.2-1.3) mg/dL AST 50 H D (14-36) U/L ALT 22 (9-52) U/L Alkaline Phosphatase 129 H D (38-126) U/L Total Protein 4.9 L (6.3-8.3) g/dL Albumin 2.3 L (3.5-5.0) g/dL Globulin 2.6 (2.2-3.9) gm/dL Albumin/Globulin Ratio 0.9 L (1.0-2.1) Arterial Blood Potassium (3.6-5.2) mmol/L Urine Osmolality (300-1000) mosm/kg Ur Random Creatinine mg/dL Ur Random Sodium mmol/L 05/26/17 05/26/17 05/26/17 Range/Units 23:29 17:47 16:47 WBC (4.8-10.8) K/uL RBC (3.80-5.20) Mil/uL Hgb (11.0-16.0) g/dL Hct (34.0-47.0) % MCV (81.0-99.0) fL MCH (27.0-31.0) pg MCHC (33.0-37.0) g/dL RDW (11.5-14.5) % Plt Count (130-400) K/uL MPV (7.2-11.7) fL Neut % (Auto) (50.0-75.0) % Lymph % (Auto) (20.0-40.0) % [place] % (Auto) (0.0-10.0) % Eos % (Auto) (0.0-4.0) % Baso % (Auto) (0.0-2.0) % Neut # (1.8-7.0) K/uL Lymph # (1.0-4.3) K/uL [place] # (0.0-0.8) K/uL Eos # (0.0-0.7) K/uL Baso # (0.0-0.2) K/uL Neutrophils % (Manual) (50-75) % Band Neutrophils % (0-2) % Lymphocytes % (Manual) (20-40) % Monocytes % (Manual) (0-10) % Toxic Granulation Platelet Estimate (NORMAL) Large Platelets Polychromasia Hypochromasia (manual) Anisocytosis (manual) Puncture Site pCO2 (35-45) mm/Hg pO2 (80-100) mm/Hg HCO3 (21-28) mmol/L ABG pH (7.35-7.45) ABG Total CO2 (22-28) mmol/L ABG O2 Saturation (95-98) % ABG Base Excess (-2.0-3.0) mmol/L [place] Test ABG Potassium (3.6-5.2) mmol/L A-a O2 Difference mm/Hg Respiratory Index Sodium (132-148) mmol/l Chloride (98-107) mmol/L Glucose (65-105) mg/dl Lactate (0.7-2.1) mmol/L FiO2 % Potassium (3.6-5.2) mmol/L Carbon Dioxide (22-30) mmol/L Anion Gap (10-20) BUN (7-17) mg/dL Creatinine (0.7-1.2) mg/dL Est GFR ( Amer) Est GFR (Non-Af Amer) POC Glucose (mg/dL) 235 H 166 H (65-110) mg/dL Random Glucose (65-105) mg/dL Serum Osmolality (272-300) mosm/kg Calcium (8.6-10.4) mg/dl Total Bilirubin (0.2-1.3) mg/dL AST (14-36) U/L ALT (9-52) U/L Alkaline Phosphatase (38-126) U/L Total Protein (6.3-8.3) g/dL Albumin (3.5-5.0) g/dL Globulin (2.2-3.9) gm/dL Albumin/Globulin Ratio (1.0-2.1) Arterial Blood Potassium (3.6-5.2) mmol/L Urine Osmolality 482 (300-1000) mosm/kg Ur Random Creatinine 192.6 mg/dL Ur Random Sodium 33 mmol/L 05/26/17 05/26/17 05/26/17 Range/Units 16:43 15:58 11:31 WBC (4.8-10.8) K/uL RBC (3.80-5.20) Mil/uL Hgb (11.0-16.0) g/dL Hct (34.0-47.0) % MCV (81.0-99.0) fL MCH (27.0-31.0) pg MCHC (33.0-37.0) g/dL RDW (11.5-14.5) % Plt Count (130-400) K/uL MPV (7.2-11.7) fL Neut % (Auto) (50.0-75.0) % Lymph % (Auto) (20.0-40.0) % [place] % (Auto) (0.0-10.0) % Eos % (Auto) (0.0-4.0) % Baso % (Auto) (0.0-2.0) % Neut # (1.8-7.0) K/uL Lymph # (1.0-4.3) K/uL [place] # (0.0-0.8) K/uL Eos # (0.0-0.7) K/uL Baso # (0.0-0.2) K/uL Neutrophils % (Manual) (50-75) % Band Neutrophils % (0-2) % Lymphocytes % (Manual) (20-40) % Monocytes % (Manual) (0-10) % Toxic Granulation Platelet Estimate (NORMAL) Large Platelets Polychromasia Hypochromasia (manual) Anisocytosis (manual) Puncture Site Rr pCO2 48 H (35-45) mm/Hg pO2 116 H (80-100) mm/Hg HCO3 19.9 L (21-28) mmol/L ABG pH 7.25 L (7.35-7.45) ABG Total CO2 22.5 (22-28) mmol/L ABG O2 Saturation 99.0 H (95-98) % ABG Base Excess -6.4 L (-2.0-3.0) mmol/L [place] Test Pos ABG Potassium 4.3 (3.6-5.2) mmol/L A-a O2 Difference 109.0 mm/Hg Respiratory Index 0.9 Sodium 133.0 (132-148) mmol/l Chloride 106.0 (98-107) mmol/L Glucose 187 H (65-105) mg/dl Lactate 1.1 (0.7-2.1) mmol/L FiO2 40.0 % Potassium (3.6-5.2) mmol/L Carbon Dioxide (22-30) mmol/L Anion Gap (10-20) BUN (7-17) mg/dL Creatinine (0.7-1.2) mg/dL Est GFR ( Amer) Est GFR (Non-Af Amer) POC Glucose (mg/dL) 188 H (65-110) mg/dL Random Glucose (65-105) mg/dL Serum Osmolality 290 (272-300) mosm/kg Calcium (8.6-10.4) mg/dl Total Bilirubin (0.2-1.3) mg/dL AST (14-36) U/L ALT (9-52) U/L Alkaline Phosphatase (38-126) U/L Total Protein (6.3-8.3) g/dL Albumin (3.5-5.0) g/dL Globulin (2.2-3.9) gm/dL Albumin/Globulin Ratio (1.0-2.1) Arterial Blood Potassium 4.3 (3.6-5.2) mmol/L Urine Osmolality (300-1000) mosm/kg Ur Random Creatinine mg/dL Ur Random Sodium mmol/L 05/26/17 Range/Units 11:17 WBC (4.8-10.8) K/uL RBC (3.80-5.20) Mil/uL Hgb (11.0-16.0) g/dL Hct (34.0-47.0) % MCV (81.0-99.0) fL MCH (27.0-31.0) pg MCHC (33.0-37.0) g/dL RDW (11.5-14.5) % Plt Count (130-400) K/uL MPV (7.2-11.7) fL Neut % (Auto) (50.0-75.0) % Lymph % (Auto) (20.0-40.0) % [place] % (Auto) (0.0-10.0) % Eos % (Auto) (0.0-4.0) % Baso % (Auto) (0.0-2.0) % Neut # (1.8-7.0) K/uL Lymph # (1.0-4.3) K/uL [place] # (0.0-0.8) K/uL Eos # (0.0-0.7) K/uL Baso # (0.0-0.2) K/uL Neutrophils % (Manual) (50-75) % Band Neutrophils % (0-2) % Lymphocytes % (Manual) (20-40) % Monocytes % (Manual) (0-10) % Toxic Granulation Platelet Estimate (NORMAL) Large Platelets Polychromasia Hypochromasia (manual) Anisocytosis (manual) Puncture Site pCO2 (35-45) mm/Hg pO2 (80-100) mm/Hg HCO3 (21-28) mmol/L ABG pH (7.35-7.45) ABG Total CO2 (22-28) mmol/L ABG O2 Saturation (95-98) % ABG Base Excess (-2.0-3.0) mmol/L [place] Test ABG Potassium (3.6-5.2) mmol/L A-a O2 Difference mm/Hg Respiratory Index Sodium (132-148) mmol/l Chloride (98-107) mmol/L Glucose (65-105) mg/dl Lactate (0.7-2.1) mmol/L FiO2 % Potassium (3.6-5.2) mmol/L Carbon Dioxide (22-30) mmol/L Anion Gap (10-20) BUN (7-17) mg/dL Creatinine (0.7-1.2) mg/dL Est GFR ( Amer) Est GFR (Non-Af Amer) POC Glucose (mg/dL) 190 H (65-110) mg/dL Random Glucose (65-105) mg/dL Serum Osmolality (272-300) mosm/kg Calcium (8.6-10.4) mg/dl Total Bilirubin (0.2-1.3) mg/dL AST (14-36) U/L ALT (9-52) U/L Alkaline Phosphatase (38-126) U/L Total Protein (6.3-8.3) g/dL Albumin (3.5-5.0) g/dL Globulin (2.2-3.9) gm/dL Albumin/Globulin Ratio (1.0-2.1) Arterial Blood Potassium (3.6-5.2) mmol/L Urine Osmolality (300-1000) mosm/kg Ur Random Creatinine mg/dL Ur Random Sodium mmol/L Laboratory Results - last 24 hr 05/26/17 05/26/17 05/26/17 11:17 11:31 15:58 WBC RBC Hgb Hct MCV MCH MCHC RDW Plt Count MPV Neut % (Auto) Lymph % (Auto) [place] % (Auto) Eos % (Auto) Baso % (Auto) Neut # Lymph # [place] # Eos # Baso # Neutrophils % (Manual) Band Neutrophils % Lymphocytes % (Manual) Monocytes % (Manual) Toxic Granulation Platelet Estimate Large Platelets Polychromasia Hypochromasia (manual) Anisocytosis (manual) Puncture Site Rr pCO2 48 H pO2 116 H HCO3 19.9 L ABG pH 7.25 L ABG Total CO2 22.5 ABG O2 Saturation 99.0 H ABG Base Excess -6.4 L [place] Test Pos ABG Potassium 4.3 A-a O2 Difference 109.0 Respiratory Index 0.9 Sodium 133.0 Chloride 106.0 Glucose 187 H Lactate 1.1 FiO2 40.0 Potassium Carbon Dioxide Anion Gap BUN Creatinine Est GFR ( Amer) Est GFR (Non-Af Amer) POC Glucose (mg/dL) 190 H 188 H Random Glucose Serum Osmolality Calcium Total Bilirubin AST ALT Alkaline Phosphatase Total Protein Albumin Globulin Albumin/Globulin Ratio Arterial Blood Potassium 4.3 Urine Osmolality Ur Random Creatinine Ur Random Sodium 05/26/17 05/26/17 05/26/17 16:43 16:47 17:47 WBC RBC Hgb Hct MCV MCH MCHC RDW Plt Count MPV Neut % (Auto) Lymph % (Auto) [place] % (Auto) Eos % (Auto) Baso % (Auto) Neut # Lymph # [place] # Eos # Baso # Neutrophils % (Manual) Band Neutrophils % Lymphocytes % (Manual) Monocytes % (Manual) Toxic Granulation Platelet Estimate Large Platelets Polychromasia Hypochromasia (manual) Anisocytosis (manual) Puncture Site pCO2 pO2 HCO3 ABG pH ABG Total CO2 ABG O2 Saturation ABG Base Excess [place] Test ABG Potassium A-a O2 Difference Respiratory Index Sodium Chloride Glucose Lactate FiO2 Potassium Carbon Dioxide Anion Gap BUN Creatinine Est GFR ( Amer) Est GFR (Non-Af Amer) POC Glucose (mg/dL) 166 H Random Glucose Serum Osmolality 290 Calcium Total Bilirubin AST ALT Alkaline Phosphatase Total Protein Albumin Globulin Albumin/Globulin Ratio Arterial Blood Potassium Urine Osmolality 482 Ur Random Creatinine 192.6 Ur Random Sodium 33 05/26/17 05/27/17 05/27/17 23:29 05:51 06:29 WBC 16.3 H RBC 3.75 L Hgb 10.6 L Hct 32.0 L MCV 85.3 MCH 28.2 MCHC 33.1 RDW 18.4 H Plt Count 237 MPV 8.0 Neut % (Auto) 87.6 H Lymph % (Auto) 6.5 L [place] % (Auto) 5.9 Eos % (Auto) 0.0 Baso % (Auto) 0.0 Neut # 14.3 H Lymph # 1.1 [place] # 1.0 H Eos # 0.0 Baso # 0.0 Neutrophils % (Manual) 82 H Band Neutrophils % 11 H* Lymphocytes % (Manual) 4 L Monocytes % (Manual) 3 Toxic Granulation Present Platelet Estimate Normal Large Platelets Present Polychromasia Slight Hypochromasia (manual) Slight Anisocytosis (manual) Slight Puncture Site pCO2 pO2 HCO3 ABG pH ABG Total CO2 ABG O2 Saturation ABG Base Excess [place] Test ABG Potassium A-a O2 Difference Respiratory Index Sodium Chloride Glucose Lactate FiO2 Potassium Carbon Dioxide Anion Gap BUN Creatinine Est GFR ( Amer) Est GFR (Non-Af Amer) POC Glucose (mg/dL) 235 H 190 H Random Glucose Serum Osmolality Calcium Total Bilirubin AST ALT Alkaline Phosphatase Total Protein Albumin Globulin Albumin/Globulin Ratio Arterial Blood Potassium Urine Osmolality Ur Random Creatinine Ur Random Sodium 05/27/17 06:29 WBC RBC Hgb Hct MCV MCH MCHC RDW Plt Count MPV Neut % (Auto) Lymph % (Auto) [place] % (Auto) Eos % (Auto) Baso % (Auto) Neut # Lymph # [place] # Eos # Baso # Neutrophils % (Manual) Band Neutrophils % Lymphocytes % (Manual) Monocytes % (Manual) Toxic Granulation Platelet Estimate Large Platelets Polychromasia Hypochromasia (manual) Anisocytosis (manual) Puncture Site pCO2 pO2 HCO3 ABG pH ABG Total CO2 ABG O2 Saturation ABG Base Excess [place] Test ABG Potassium A-a O2 Difference Respiratory Index Sodium 132 Chloride 101 Glucose Lactate FiO2 Potassium 4.0 Carbon Dioxide 23 Anion Gap 11 BUN 17 Creatinine 1.2 Est GFR ( Amer) 52 Est GFR (Non-Af Amer) 43 POC Glucose (mg/dL) Random Glucose 190 H Serum Osmolality Calcium 7.6 L Total Bilirubin 0.6 AST 50 H D ALT 22 Alkaline Phosphatase 129 H D Total Protein 4.9 L Albumin 2.3 L Globulin 2.6 Albumin/Globulin Ratio 0.9 L Arterial Blood Potassium Urine Osmolality Ur Random Creatinine Ur Random Sodium Fingerstick Blood Sugar Results: 190 Critical Care Progress Note - Nutrition Nutrition: Nutrition Category Date Time Status NPO Diet [DIET] Diets 05/24/17 Dinner Active
[2017-05-27] MEDS ORDERED: Ciprofloxacin 400mg/200ml D5W 400 MG/200 ML BAG IVPB ONE (10:00)
[2017-05-27] MEDS: metroNIDAZOLE IV 500 mg/100 ml 500 MG/100 ML BAG IVPB SCH ×3 (11:30→23:35)
[2017-05-27] MEDS: Albumin Human 25% (12.5 gm/50 ml) IV SCH ×3 (11:53→23:33)
--- NOTE | 2017-05-27 15:24 | CP.PCM.PN ---
Subjective - Date & Time of Evaluation Date of Evaluation: 05/27/17 Time of Evaluation: 15:21 - Subjective Subjective: General Surgery Dr. Richard Pt S&E @bedside. Pt extubated yesterday and placed on Bipap. Pt tolerated well and switched to venti-mask today. Pain is controlled w/ medications. Pt denies N /V. tolerating ice chips and requesting water to drink. Objective - Vital Signs/Intake and Output Vital Signs (last 24 hours): Temp Pulse Resp BP Pulse Ox 98.4 F 114 H 16 140/75 98 05/27/17 12:00 05/27/17 15:00 05/27/17 15:00 05/27/17 15:00 05/27/17 15:00 Intake and Output: 05/27/17 05/27/17 06:59 18:59 Intake Total 750 800 Output Total 1410 400 Balance -660 400 Selected Entries 05/26/17 05/26/17 05/27/17 18:00 22:00 06:00 Output, 90 20 35 Drainage Amount [JP1] Output, 150 30 60 Drainage Amount [JP2] - Medications Medications: Current Medications Albumin Human (Albumin Human 25% (12.5 Gm/50 Ml)) 12.5 gm IV Q6H [facility] Stop: 05/28/17 06:01 Last Admin: 05/27/17 11:53 Dose: 12.5 gm Albuterol/Ipratropium (Duoneb 3 Mg/0.5 Mg (3 Ml) Ud) 3 ml INH RQ6 PRN PRN Reason: Shortness of Breath Last Admin: 05/27/17 13:38 Dose: 3 ml Hydromorphone HCl (Dilaudid) 0.5 mg IVP Q4H PRN PRN Reason: Pain, moderate (4-7) Last Admin: 05/27/17 08:18 Dose: 0.5 mg Ceftriaxone Sodium 1 gm/ (Sodium Chloride) 100 mls @ 100 mls/hr IVPB Q12H [facility] Last Admin: 05/27/17 04:35 Dose: 100 mls/hr Sodium Bicarbonate 75 meq/ (Sodium Chloride) 1,075 mls @ 50 mls/hr IV .[id number] [facility] Last Admin: 05/27/17 12:59 Dose: 50 mls/hr Metronidazole (Flagyl) 500 mg in 100 mls @ 100 mls/hr IVPB Q6 [facility] Last Admin: 05/27/17 11:30 Dose: 100 mls/hr Ciprofloxacin (Cipro 200mg/100ml D5w) 100 mls @ 100 mls/hr IVPB Q12 [facility] Insulin Aspart (Novolog) 0 unit SC Q6H [facility] PRN Reason: Protocol Last Admin: 05/27/17 11:53 Dose: 3 unit Pantoprazole Sodium (Protonix Inj) 40 mg IVP Q12H [facility] Last Admin: 05/27/17 05:48 Dose: 40 mg - Labs Labs: 05/27/17 06:29 05/27/17 06:29 PT 14.5 SECONDS (9.7-12.2) H 05/25/17 07:51 INR 1.3 05/25/17 07:51 APTT 31 SECONDS (21-34) 05/25/17 07:51 - Constitutional Appears: Non-toxic, No Acute Distress - Head Exam Head Exam: NORMAL INSPECTION - Eye Exam Eye Exam: Normal appearance - ENT Exam ENT Exam: Mucous Membranes Moist - Respiratory Exam Respiratory Exam: NORMAL BREATHING PATTERN. absent: Accessory Muscle Use, Respiratory Distress - Cardiovascular Exam Cardiovascular Exam: Tachycardia - GI/Abdominal Exam GI & Abdominal Exam: Distended (moderate), Guarding (voluntary), Soft, Tenderness (andres-incisional TTP). absent: Firm, Rebound Additional comments: ostomy appliance in place stoma dusky w/ sloughing mucosa bowel sweat present in bag Jah drain x2 w/ serous fluid dressings c/d/i - Exam Additional comments: naqvi in place - Extremities Exam Extremities Exam: Normal Inspection - Neurological Exam Neurological Exam: Alert, Awake, Oriented x3 - Psychiatric Exam Psychiatric exam: Normal Affect, Normal Mood - Skin Skin Exam: Dry, Normal Color, Warm Assessment and Plan - Assessment and Plan (Free Text) Assessment: 86 y/o F POD#2 s/p ex-lap w/ diverting colostomy and liver Bx - cont ice chips only - monitor drain output - monitor UOP - cont pain management - encourage OOB to chair/Amb/IS use - f/u recs from Dr. Bright, Heme/Onc - GI/DVT PPx Pt discussed w/ Dr. Hilary Bocanegra DO PGY2
--- NOTE | 2017-05-27 16:26 | CP.PCM.PN ---
Subjective - Date & Time of Evaluation Date of Evaluation: 05/27/17 Time of Evaluation: 15:30 - Subjective Subjective: 86 year old female with a PMHx of DM 2 and HTN who presented 05/19/17 with diffusely radiating, 10/10, sharp LLQ abdominal pain x 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 She was admitted for further treatment and evaluation. Currently upon FULL ROS NO chest pain NO palpitations Soreness in the throat has resolved Abdominal pain is controlled and only hurts if some one like a doctor pushes down on it NO headache NO changes in vision NO n/v NO changes in hearing Colostomy bag with watery dark brown green stool Assessment and Plan: 1). Sigmoid colon mass/Liver lesion likely mets/Weight loss and abdominal pain -CT-Abd/Pelvis on admission showed 8.6 cm sigmoid mass with extensive hepatic metastasis. Bilateral renal cysts with large right upper pole renal cyst. Small bilateral pleural effusion and small pericardial effusion. Small hiatal hernia. Possible small diverticulum of the herniated stomach CEA elevated @ 11.6. (Normal = 0-3.0) GI consult Dr Foster ,appreciated Dr Bright oncology consult - Recs appreciated Surgery consult Dr Richard-appreciated Colonscopy (05/22/17): Non-bleeding external and internal hemorrhoids. 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 Biopsied F/U on Pathology report from biopsy. Morphine 2 Q6H IV PRN for pain control Barium Enema (05/23/2017): Contrast flowed freely through the rectum to the level of the distal sigmoid colon. At the level of the distal sigmoid colon, contrast slowly traversed through a very thin and irregular channel to the level of the mid sigmoid at the site of the known sigmoid carcinoma. Contrast did not flow freely past this level. Exam was subsequently terminated. These findings were concerning for a near complete obstruction of the bowel lumen from the adjacent obstructing tumor. Surgery Dr. Richard Hemotology/Oncology Dr. Bright GI Dr. Foster 05/25/17: Patient underwent lapartomy with diverting colostomy and liver biopsy. She was found to have the colonic mass invading the bladder and therefore was not entirely resectable Liver Biopsy showed necrotic materal Awaiting pathology report from surgery Rocephin 1 mg IV Q12H (05/25/17) Flagyl 250 mg IV Q8H (05/25/17) 2). Respiratory Acidosis Patient was extubated on 05/26/17 and placed on BiPap and Bicarb Drip Patient no longer on BiPap 3). DM 2 Aspart ISS Q6H Low Dose Accuchecks 4).Hypertension HOLDING Labetolol 100mg Q12H, Enalapril 15 mg Daily, and Cardizem [id number] Daily 5). Anemia Ordered Iron Sat, Iron/TIBC, Ferritin, and Reticulocyte Count S/P Transfusion upon admission H/H Stable Cont. to monitor 6). Pericardial effusion/cardiomegaly Cardiology Consulted (Dr. Portillo) - help appreciated ECHO (05/20/17): Diastolic Dysfunction Grade I-abnormal relaxation pattern, Trace TR and MR 7). Bilateral Renal Cysts U/S Renal 05/26/17: Right Upper Pole renal cyst measures approximately 10.4x8.3x9.2 cm. Left upper pole renal cyst measures 2.2x1.4x1.6 cm Will need follow up U/S in 6 months 8). DVT and GI prophylaxis HOLDING Heparin Protonix 40 mg IV Q12H F/U 24 hour urine study. 05/26/17:Spoke with Son Dominick Mckoy ([phone]) who was at bedside. He provided a copy of PROXY DIRECTIVE which designates renetta Prabhakar ) as POA/Health Care Proxy and patient is FULL CODE. Please see this document that was placed in the front of the chart. Palliative Care Nurse Ramakrishna will speak with patient and family to discuss goals of care on Monday05/29/17. Arya Remy D.O. Objective - Vital Signs/Intake and Output Vital Signs (last 24 hours): Temp Pulse Resp BP Pulse Ox 98.4 F 114 H 16 140/75 98 05/27/17 12:00 05/27/17 15:00 05/27/17 15:00 05/27/17 15:00 05/27/17 15:00 Intake and Output: 05/27/17 05/27/17 06:59 18:59 Intake Total 750 800 Output Total 1410 400 Balance -660 400 - Medications Medications: Current Medications Albumin Human (Albumin Human 25% (12.5 Gm/50 Ml)) 12.5 gm IV Q6H [facility] Stop: 05/28/17 06:01 Last Admin: 05/27/17 11:53 Dose: 12.5 gm Albuterol/Ipratropium (Duoneb 3 Mg/0.5 Mg (3 Ml) Ud) 3 ml INH RQ6 PRN PRN Reason: Shortness of Breath Last Admin: 05/27/17 13:38 Dose: 3 ml Hydromorphone HCl (Dilaudid) 0.5 mg IVP Q4H PRN PRN Reason: Pain, moderate (4-7) Last Admin: 05/27/17 08:18 Dose: 0.5 mg Ceftriaxone Sodium 1 gm/ (Sodium Chloride) 100 mls @ 100 mls/hr IVPB Q12H [facility] Last Admin: 05/27/17 04:35 Dose: 100 mls/hr Sodium Bicarbonate 75 meq/ (Sodium Chloride) 1,075 mls @ 50 mls/hr IV .[id number] [facility] Last Admin: 05/27/17 12:59 Dose: 50 mls/hr Metronidazole (Flagyl) 500 mg in 100 mls @ 100 mls/hr IVPB Q6 [facility] Last Admin: 05/27/17 11:30 Dose: 100 mls/hr Ciprofloxacin (Cipro 200mg/100ml D5w) 100 mls @ 100 mls/hr IVPB Q12 [facility] Insulin Aspart (Novolog) 0 unit SC Q6H YANIQUE PRN Reason: Protocol Last Admin: 05/27/17 11:53 Dose: 3 unit Pantoprazole Sodium (Protonix Inj) 40 mg IVP Q12H [facility] Last Admin: 05/27/17 05:48 Dose: 40 mg - Labs Labs: 05/27/17 06:29 05/27/17 06:29 PT 14.5 SECONDS (9.7-12.2) H 05/25/17 07:51 INR 1.3 05/25/17 07:51 APTT 31 SECONDS (21-34) 05/25/17 07:51
[2017-05-27 20:49] LABS: URINE CREATININE 35.2 mg/dL
--- NOTE | 2017-05-27 21:29 | PN ---
DATE: LOCATION: ICU 11. SUBJECTIVE: This is an 86-year-old female seen in rounds in the presence of the family members as well as the ICU staff, appeared to be awake, alert, oriented, respond well to verbal stimuli, . No reported active bleeding and left lower quadrant colostomy is intact with brownish like fecal material. The entire chart is reviewed including, but not limited to, the most recent lab and radiology study results, current and the previous medication list, current and the previous medical events, and today's labs showed increased white blood cell to 16.3, low hemoglobin 10.6, low hematocrit 32.0 with normal platelet count, but increased band with blood glucose level 267, low calcium 7.6, AST mildly elevated to 50, normal LFT, and elevated alkaline phosphatase 129. Total protein 4.9 with albumin decreased to 2.3. No reported chest pain, palpitation or significant shortness of breath. PHYSICAL EXAMINATION: GENERAL: An 86-year-old female. VITAL SIGNS: Afebrile with pulse of 110, respiratory rate 18 to 20, blood pressure of 136/72. HEENT: Showed pale dry mucous membrane. Nonicteric sclerae. The patient is afebrile. LUNGS: Scattered mild crepitation, decreased air entry at bases. HEART: Positive S1 and S2 with increased rate. ABDOMEN: Covered with clean dressing, DARRYL drainage is positive, colostomy tube is in place. No active bleeding. Bowel sounds are excessively hypoactive. EXTREMITIES: Mild lower extremity edematous changes. No clubbing or cyanosis. NEUROLOGIC: No reported neurological new deficits and no new focal neurological deficits. It has to be mentioned that the patient has been on BiPAP on and off. Now she is on Ventimask today with intermittent period of complaint of abdominal pain. IMPRESSION: 1. Colon cancer. 2. Status post diverting colostomy with partial colon resection. 3. Metastasis to the liver by recent diagnosis. 4. Anemia most likely secondary to above. 5. Bilateral renal cyst present. 6. Malnutrition with hypoalbuminemia. 7. Known history of hypertension. 8. Electrolyte imbalance associated with dehydration. SUGGESTION: 1. Agree with your plan. 2. The patient will need some peripheral hyperalimentation in the meantime. 3. Oncology/Hematology consult. Sp Leblanc MD [facility] # [id number]
--- NOTE | 2017-05-27 23:38 | CP.PCM.PN ---
Subjective - Date & Time of Evaluation Date of Evaluation: 05/27/17 Time of Evaluation: 12:00 - Subjective Subjective: on bipap Objective - Vital Signs/Intake and Output Vital Signs (last 24 hours): Temp Pulse Resp BP Pulse Ox 98.5 F 109 H 16 125/62 96 05/27/17 20:00 05/27/17 23:00 05/27/17 23:00 05/27/17 23:00 05/27/17 23:00 Intake and Output: 05/27/17 05/28/17 18:59 06:59 Intake Total 1200 250 Output Total 795 205 Balance 405 45 - Medications Medications: Current Medications Albumin Human (Albumin Human 25% (12.5 Gm/50 Ml)) 12.5 gm IV Q6H [facility] Stop: 05/28/17 06:01 Last Admin: 05/27/17 17:27 Dose: 12.5 gm Albuterol/Ipratropium (Duoneb 3 Mg/0.5 Mg (3 Ml) Ud) 3 ml INH RQ6 PRN PRN Reason: Shortness of Breath Last Admin: 05/27/17 13:38 Dose: 3 ml Hydromorphone HCl (Dilaudid) 0.5 mg IVP Q4H PRN PRN Reason: Pain, moderate (4-7) Last Admin: 05/27/17 20:53 Dose: 0.5 mg Ceftriaxone Sodium 1 gm/ (Sodium Chloride) 100 mls @ 100 mls/hr IVPB Q12H [facility] Last Admin: 05/27/17 16:28 Dose: 100 mls/hr Sodium Bicarbonate 75 meq/ (Sodium Chloride) 1,075 mls @ 50 mls/hr IV .[id number] [facility] Last Admin: 05/27/17 12:59 Dose: 50 mls/hr Metronidazole (Flagyl) 500 mg in 100 mls @ 100 mls/hr IVPB Q6 [facility] Last Admin: 05/27/17 17:27 Dose: 100 mls/hr Ciprofloxacin (Cipro 200mg/100ml D5w) 100 mls @ 100 mls/hr IVPB Q12 [facility] Insulin Aspart (Novolog) 0 unit SC Q6H [facility]QUE PRN Reason: Protocol Last Admin: 05/27/17 17:28 Dose: 2 unit Pantoprazole Sodium (Protonix Inj) 40 mg IVP Q12H [facility] Last Admin: 05/27/17 17:44 Dose: 40 mg - Labs Labs: 05/27/17 06:29 05/27/17 18:41 PT 14.5 SECONDS (9.7-12.2) H 05/25/17 07:51 INR 1.3 05/25/17 07:51 APTT 31 SECONDS (21-34) 05/25/17 07:51 - Head Exam Head Exam: ATRAUMATIC - Eye Exam Eye Exam: Normal appearance - ENT Exam ENT Exam: Mucous Membranes Dry - Respiratory Exam Respiratory Exam: Respiratory Distress - Cardiovascular Exam Cardiovascular Exam: +S1, +S2 - GI/Abdominal Exam GI & Abdominal Exam: Normal Bowel Sounds Assessment and Plan (1) Colonic mass Assessment & Plan: predominant necrosis by biopsy f/u liver lesion biopsy Status: Acute (2) Liver lesion Assessment & Plan: f/u biopsy Status: Acute (3) Anemia Assessment & Plan: chronic disease surgical blood loss s/p PRBC Status: Acute (4) Coagulopathy Assessment & Plan: nutritional Status: Acute
--- NOTE | 2017-05-27 23:43 | CP.PCM.PN ---
Subjective - Date & Time of Evaluation Date of Evaluation: 05/27/17 Time of Evaluation: 18:00 - Subjective Subjective: Breathing better, son at bedside updates given to family Objective - Vital Signs/Intake and Output Vital Signs (last 24 hours): Temp Pulse Resp BP Pulse Ox 98.5 F 109 H 16 125/62 96 05/27/17 20:00 05/27/17 23:00 05/27/17 23:00 05/27/17 23:00 05/27/17 23:00 Intake and Output: 05/27/17 05/28/17 18:59 06:59 Intake Total 1200 250 Output Total 795 205 Balance 405 45 - Medications Medications: Current Medications Albumin Human (Albumin Human 25% (12.5 Gm/50 Ml)) 12.5 gm IV Q6H [facility] Stop: 05/28/17 06:01 Last Admin: 05/27/17 23:33 Dose: 12.5 gm Albuterol/Ipratropium (Duoneb 3 Mg/0.5 Mg (3 Ml) Ud) 3 ml INH RQ6 PRN PRN Reason: Shortness of Breath Last Admin: 05/27/17 13:38 Dose: 3 ml Hydromorphone HCl (Dilaudid) 0.5 mg IVP Q4H PRN PRN Reason: Pain, moderate (4-7) Last Admin: 05/27/17 20:53 Dose: 0.5 mg Ceftriaxone Sodium 1 gm/ (Sodium Chloride) 100 mls @ 100 mls/hr IVPB Q12H [facility] Last Admin: 05/27/17 16:28 Dose: 100 mls/hr Sodium Bicarbonate 75 meq/ (Sodium Chloride) 1,075 mls @ 50 mls/hr IV .[id number] [facility] Last Admin: 05/27/17 12:59 Dose: 50 mls/hr Metronidazole (Flagyl) 500 mg in 100 mls @ 100 mls/hr IVPB Q6 [facility] Last Admin: 05/27/17 23:35 Dose: 100 mls/hr Ciprofloxacin (Cipro 200mg/100ml D5w) 100 mls @ 100 mls/hr IVPB Q12 [facility] Insulin Aspart (Novolog) 0 unit SC Q6H [facility] PRN Reason: Protocol Last Admin: 05/27/17 17:28 Dose: 2 unit Pantoprazole Sodium (Protonix Inj) 40 mg IVP Q12H [facility] Last Admin: 05/27/17 17:44 Dose: 40 mg - Labs Labs: 05/27/17 06:29 05/27/17 18:41 PT 14.5 SECONDS (9.7-12.2) H 05/25/17 07:51 INR 1.3 05/25/17 07:51 APTT 31 SECONDS (21-34) 05/25/17 07:51 - Head Exam Head Exam: ATRAUMATIC - Eye Exam Eye Exam: Normal appearance - ENT Exam ENT Exam: Mucous Membranes Dry - Respiratory Exam Respiratory Exam: NORMAL BREATHING PATTERN - Cardiovascular Exam Cardiovascular Exam: +S1, +S2 - GI/Abdominal Exam GI & Abdominal Exam: Normal Bowel Sounds Assessment and Plan (1) Colonic mass Assessment & Plan: likely colon cancer biopsy insufficient for invasive carcinoma Status: Acute (2) Liver lesion Assessment & Plan: will need IR liver lesion biopsy intraop biopsy shows necrotic tissue Status: Acute (3) Anemia Assessment & Plan: chronic disease Status: Acute (4) Coagulopathy Assessment & Plan: nutritional Status: Acute
[2017-05-28] MEDS: (Novolog) Insulin Aspart, Recombinant 100 u/ml 10 ml vial SC SCH ×4 (00:17→18:35)
--- NOTE | 2017-05-28 02:18 | PN ---
DATE: SUBJECTIVE: This is postop day 2. Patient has normal vital signs. She is extubated and urine output has improved and colostomy is draining greenish material, no flatus yet, bowel sounds somewhat diminished. She is still in the ICU. She is still maintained on IV antibiotics as well as IV fluids. Labs were checked as well as albumin and hemoglobin is stable and she will be placed on some albumin and the antibiotics were adjusted according to the creatinine clearance. Her son was present and he asked several questions and discussed her diagnoses and prognosis and possible plans in the near future. She still has been managed by the sign designer . Joe Richard MD
[2017-05-28] MEDS: Albumin Human 25% (12.5 gm/50 ml) IV SCH (05:05)
[2017-05-28] MEDS: metroNIDAZOLE IV 500 mg/100 ml 500 MG/100 ML BAG IVPB SCH ×3 (06:00→18:36)
[2017-05-28 06:06] LABS: BASO % 0.1 % (0.0-2.0); HEMOGLOBIN 9.7 g/dL (11.0-16.0); LYMPH # 1.2 K/uL (1.0-4.3); LYMPH % 6.5 % (20.0-40.0); MEAN CELL VOLUME 85.3 fL (81.0-99.0); MEAN CORPUSCULAR HEMOGLOBIN 28.8 pg (27.0-31.0); MEAN CORPUSCULAR HGB CONC 33.7 g/dL (33.0-37.0); MEAN PLATELET VOLUME 8.2 fL (7.2-11.7); MONO # 1.1 K/uL (0.0-0.8); MONO % 6.3 % (0.0-10.0); NEUT # 15.7 K/uL (1.8-7.0); NEUT % 87.1 % (50.0-75.0); PLATELET COUNT 214 K/uL (130-400); RBC 3.38 Mil/uL (3.80-5.20); RED CELL DISTRIBUTION WIDTH 18.7 % (11.5-14.5); WHITE BLOOD COUNT 18.1 K/uL (4.8-10.8)
[2017-05-28 06:46] LABS: ALBUMIN 2.6 g/dL (3.5-5.0); ALT/SGPT 27 U/L (9-52); AST/SGOT 40 U/L (14-36); BLOOD UREA NITROGEN 20 mg/dL (7-17); CALCIUM 7.7 mg/dl (8.6-10.4); GFR AFRICAN-AMERICAN > 60; GFR NON-AFRICAN AMERICAN 53; MAGNESIUM 1.5 mg/dL (1.6-2.3)
[2017-05-28 08:23] LABS: BANDS 5 % (0-2); LYMPHOCYTE 8 % (20-40); MONOCYTE 6 % (0-10); NEUTROPHIL 81 % (50-75); TOTAL CELLS COUNTED 100
[2017-05-28 08:24] LABS: ANISOCYTOSIS MODERATE; HYPOCHROMIC SLIGHT; LARGE PLATELETS PRESENT; PLATELET ESTIMATE NORMAL (NORMAL); POLYCHROMIC SLIGHT
[2017-05-28 08:27] LABS: TOXIC GRANULATION PRESENT
[2017-05-28] MEDS: Magnesium Sulfate 1 gm in D5W 1 GM/100 ML BAG IVPB SCH ×2 (08:29→08:30)
[2017-05-28] MEDS: Albuterol-Ipratrop 3 mg / 0.5 (3 ml) UD INH PRN (08:33)
--- NOTE | 2017-05-28 09:49 | CP.PCM.PN ---
Subjective - Date & Time of Evaluation Date of Evaluation: 05/28/17 Time of Evaluation: 09:20 - Subjective Subjective: General Surgery Note for Dr. Richard Patient seen and examined at bedside. No acute event overnight. She is s/p exploratory laparotomy with diverting colostomy and liver Biopsy POD#3. She is resting in bed comfortably. Tolerating venti-mask today. She states pain is controlled. Denies nausea/vomiting. Tolerating ice chips. She has been out of bed to chair. Colostomy is producing stool and gas. Objective - Vital Signs/Intake and Output Vital Signs (last 24 hours): Temp Pulse Resp BP Pulse Ox 98.6 F 108 H 16 129/80 98 05/28/17 08:00 05/28/17 07:00 05/28/17 07:00 05/28/17 07:00 05/28/17 07:00 Intake and Output: 05/28/17 05/28/17 06:59 18:59 Intake Total 1000 200 Output Total 675 130 Balance 325 70 - Medications Medications: Current Medications Albuterol/Ipratropium (Duoneb 3 Mg/0.5 Mg (3 Ml) Ud) 3 ml INH RQ6 PRN PRN Reason: Shortness of Breath Last Admin: 05/28/17 08:33 Dose: 3 ml Hydromorphone HCl (Dilaudid) 0.5 mg IVP Q4H PRN PRN Reason: Pain, moderate (4-7) Last Admin: 05/27/17 20:53 Dose: 0.5 mg Ceftriaxone Sodium 1 gm/ (Sodium Chloride) 100 mls @ 100 mls/hr IVPB Q12H [facility] Last Admin: 05/28/17 03:35 Dose: 100 mls/hr Sodium Bicarbonate 75 meq/ (Sodium Chloride) 1,075 mls @ 50 mls/hr IV .[id number] [facility] Last Admin: 05/28/17 06:54 Dose: Not Given Metronidazole (Flagyl) 500 mg in 100 mls @ 100 mls/hr IVPB Q6 [facility] Last Admin: 05/28/17 06:00 Dose: 100 mls/hr Ciprofloxacin (Cipro 200mg/100ml D5w) 100 mls @ 100 mls/hr IVPB Q12 [facility] Insulin Aspart (Novolog) 0 unit SC Q6H [facility] PRN Reason: Protocol Last Admin: 05/28/17 06:00 Dose: 1 unit Pantoprazole Sodium (Protonix Inj) 40 mg IVP Q12H [facility] Last Admin: 05/28/17 05:59 Dose: 40 mg - Labs Labs: 05/28/17 05:59 05/28/17 05:59 PT 14.5 SECONDS (9.7-12.2) H 05/25/17 07:51 INR 1.3 05/25/17 07:51 APTT 31 SECONDS (21-34) 05/25/17 07:51 - Constitutional Appears: No Acute Distress - Head Exam Head Exam: ATRAUMATIC, NORMOCEPHALIC - Eye Exam Eye Exam: Normal appearance - ENT Exam ENT Exam: Mucous Membranes Moist - Neck Exam Neck Exam: Full ROM - Respiratory Exam Respiratory Exam: NORMAL BREATHING PATTERN - Cardiovascular Exam Cardiovascular Exam: Tachycardia - GI/Abdominal Exam Additional comments: Colostomy is producing stool output, some mucosal staining but pink underneath bowel sweat present in bag Jah drain x2 - serous drainage Dressings clean/dry/intact - Exam Additional comments: naqvi catheter in place - Neurological Exam Neurological Exam: Alert, Awake, CN II-XII Intact, Oriented x3 - Psychiatric Exam Psychiatric exam: Normal Affect, Normal Mood - Skin Skin Exam: Dry, Intact, Normal Color, Warm Assessment and Plan - Assessment and Plan (Free Text) Plan: 86 F s/p exploratory laparotomy with diverting colostomy and liver biopsy POD#3 - May have ice chips - Dressing changes as needed - Strict I's & O's - Analgesics/Anti-emetics PRN - OOB/Ambulation/Incentive spirometry - Heme/Onc consult, Dr. Bright, help appreciated - f/u recommendations - GI/DVT PPx - Discussed with Dr. Hilary Jimenez PGY1
[2017-05-28] MEDS: Ciprofloxacin 200mg/100ml D5W 100 ML IVPB SCH ×2 (10:31→22:00)
[2017-05-28] MEDS: Dextrose 5%/0.9% NS 1,000 ML IV SCH (12:46)
--- NOTE | 2017-05-28 13:35 | PN ---
DATE: LOCATION: ICU 11. SUBJECTIVE: This is an 86-year-old female seen and examined in rounds, is still in Ventimask and the NG tube is . Colostomy bag is in place with some liquid greenish fecal material. The patient is still complaining of some intermittent abdominal pain postsurgically with mild distention. DARRYL present, draining very small amount of liquid material. The entire chart is reviewed including, but not limited to the most recent lab and radiology study results, current and previous medication list, current and the previous medical events, and today's white blood cells increased to 18.1 with low hemoglobin 9.6 and low hematocrit 28.8, but normal platelet count. Mild increased BUN to 20, but normal creatinine. Blood glucose level 170 with low magnesium 1.5 and AST slightly elevated , low albumin 2.6, low total protein 5.3. PHYSICAL EXAMINATION: GENERAL: An 86-year-old female. VITAL SIGNS: Afebrile with pulse of 102, respiratory rate 18 to 20 with blood pressure of 132/74. HEENT: Showed pale dry oral mucous membrane. Nonicteric sclerae. LUNGS: Scattered crepitation, decreased air entry at bases. HEART: Positive S1 and S2. ABDOMEN: Covered with clean dressing, colostomy tube is in place. Bowel sounds are excessively hypoactive with mild abdominal tenderness. EXTREMITIES: Shows lower extremity edematous changes. No clubbing or cyanosis. Peripheral pulses are decreased bilaterally. NEUROLOGIC: No reported new neurological deficits, sensory or motor. IMPRESSION: 1. Left-sided colon cancer with metastatic lesion to the liver most likely. 2. Status post partial colon resection with status post colostomy. 3. Anemia secondary to above. 4. Coagulopathy. 5. Electrolyte imbalance with hypomagnesemia, hypocalcemia. 6. Malnutrition with hypoalbuminemia. 7. Bilateral renal cyst. 8. Known history of hypertension, stable. SUGGESTION: 1. Continue current management. 2. Again, the patient will need central hyperalimentation. 3. Correct any underlying electrolyte imbalance. 4. Further recommendation to follow. Sp Leblanc MD
--- NOTE | 2017-05-28 17:32 | CP.CCUPN ---
CCU Subjective - Physician Review Events Since Last Encounter (Free Text): 05/28/17 17:31 86 female with a history of diabetes hypertension admitted with sigmoid mass obstruction, status post diverting colostomy under laparotomy. Patient also received a liver biopsy. Patient is currently sitting up. Patient is awake, responding. Sitting up. On high flow oxygen. Vital signs stable. Chest good air entry. Abdomen postoperative. Laboratory Condition is stable Continue the current treatment. Surgical follow-up. Patient can be transferred to medical floor. Surgical follow-up can be transferred to floor CCU Objective - Vital Signs / Intake & Output Vital Signs (Last 4 hours): Vital Signs Pulse Resp 05/28/17 15:00 109 H 17 05/28/17 14:00 104 H 16 Intake and Output (Last 8hrs): Intake & Output 05/28/17 05/28/17 05/28/17 06:59 14:59 22:59 Intake Total 800 800 150 Output Total 500 330 70 Balance 300 470 80 Weight 158 lb Intake: Intake, IV Amount 800 800 150 Left Antecubital 400 400 150 Left Wrist 400 400 Output: Gastric Amount 10 Right Nares 10 Drainage 200 60 JP1 70 20 JP2 130 40 Urine 240 270 70 Urethral (Bailey) 240 270 70 Stool 50 - Medications Active Medications: Active Medications Generic Name Dose Route Start Last Admin Trade Name Freq PRN Reason Stop Dose Admin Albuterol/Ipratropium 3 ml 05/23/17 10:44 05/28/17 08:33 Duoneb 3 Mg/0.5 Mg (3 Ml) Ud INH 3 ml RQ6 PRN Administration Shortness of Breath Hydromorphone HCl 0.5 mg 05/27/17 08:00 05/28/17 15:15 Dilaudid IVP 0.5 mg Q4H PRN Administration Pain, moderate (4-7) Ceftriaxone Sodium 1 gm/ 100 mls @ 100 mls/hr 05/25/17 16:00 05/28/17 16:39 Sodium Chloride IVPB 100 mls/hr Q12H YANIQUE Administration Metronidazole 500 mg in 100 mls @ 100 mls/hr 05/27/17 12:00 05/28/17 13:00 Flagyl IVPB 100 mls/hr Q6 YANIQUE Administration Ciprofloxacin 100 mls @ 100 mls/hr 05/28/17 10:00 05/28/17 10:31 Cipro 200mg/100ml D5w IVPB 100 mls/hr Q12 YANIQUE Administration Dextrose/Sodium Chloride 1,000 mls @ 50 mls/hr 05/28/17 12:45 05/28/17 12:46 Dextrose 5%/0.9% Ns 1000 Ml IV 50 mls/hr .Q20H YANIQUE Administration Insulin Aspart 0 unit 05/26/17 18:00 05/28/17 12:00 Novolog SC 1 unit Q6H YANIQUE Administration Protocol Pantoprazole Sodium 40 mg 05/29/17 10:00 Protonix Inj IVP DAILY YANIQUE - Patient Studies Lab Studies: Lab Studies 05/28/17 05/28/17 05/28/17 Range/Units 11:37 05:59 05:59 WBC 18.1 H (4.8-10.8) K/uL RBC 3.38 L (3.80-5.20) Mil/uL Hgb 9.7 L (11.0-16.0) g/dL Hct 28.8 L (34.0-47.0) % MCV 85.3 (81.0-99.0) fL MCH 28.8 (27.0-31.0) pg MCHC 33.7 (33.0-37.0) g/dL RDW 18.7 H (11.5-14.5) % Plt Count 214 (130-400) K/uL MPV 8.2 (7.2-11.7) fL Neut % (Auto) 87.1 H (50.0-75.0) % Lymph % (Auto) 6.5 L (20.0-40.0) % Bremer % (Auto) 6.3 (0.0-10.0) % Eos % (Auto) 0.0 (0.0-4.0) % Baso % (Auto) 0.1 (0.0-2.0) % Neut # 15.7 H (1.8-7.0) K/uL Lymph # 1.2 (1.0-4.3) K/uL Bremer # 1.1 H (0.0-0.8) K/uL Eos # 0.0 (0.0-0.7) K/uL Baso # 0.0 (0.0-0.2) K/uL Neutrophils % (Manual) 81 H (50-75) % Band Neutrophils % 5 H (0-2) % Lymphocytes % (Manual) 8 L (20-40) % Monocytes % (Manual) 6 (0-10) % Toxic Granulation Present Platelet Estimate Normal (NORMAL) Large Platelets Present Polychromasia Slight Hypochromasia (manual) Slight Anisocytosis (manual) Moderate Sodium 133 (132-148) mmol/L Potassium 3.6 (3.6-5.2) mmol/L Chloride 99 (98-107) mmol/L Carbon Dioxide 26 (22-30) mmol/L Anion Gap 11 (10-20) BUN 20 H (7-17) mg/dL Creatinine 1.0 (0.7-1.2) mg/dL Est GFR ( Amer) > 60 Est GFR (Non-Af Amer) 53 POC Glucose (mg/dL) 194 H (65-110) mg/dL Random Glucose 164 H (65-105) mg/dL Calcium 7.7 L (8.6-10.4) mg/dl Phosphorus 3.8 (2.5-4.5) mg/dL Magnesium 1.5 L (1.6-2.3) mg/dL Total Bilirubin 0.8 (0.2-1.3) mg/dL AST 40 H (14-36) U/L ALT 27 (9-52) U/L Alkaline Phosphatase 113 (38-126) U/L Total Protein 5.3 L (6.3-8.3) g/dL Albumin 2.6 L (3.5-5.0) g/dL Globulin 2.7 (2.2-3.9) gm/dL Albumin/Globulin Ratio 1.0 (1.0-2.1) Urine Collection Time HRS Urine Total Volume mL Creatinine Clearance (87-107) mL/min 05/28/17 05/28/17 05/27/17 Range/Units 05:35 00:09 18:41 WBC (4.8-10.8) K/uL RBC (3.80-5.20) Mil/uL Hgb (11.0-16.0) g/dL Hct (34.0-47.0) % MCV (81.0-99.0) fL MCH (27.0-31.0) pg MCHC (33.0-37.0) g/dL RDW (11.5-14.5) % Plt Count (130-400) K/uL MPV (7.2-11.7) fL Neut % (Auto) (50.0-75.0) % Lymph % (Auto) (20.0-40.0) % Bremer % (Auto) (0.0-10.0) % Eos % (Auto) (0.0-4.0) % Baso % (Auto) (0.0-2.0) % Neut # (1.8-7.0) K/uL Lymph # (1.0-4.3) K/uL Bremer # (0.0-0.8) K/uL Eos # (0.0-0.7) K/uL Baso # (0.0-0.2) K/uL Neutrophils % (Manual) (50-75) % Band Neutrophils % (0-2) % Lymphocytes % (Manual) (20-40) % Monocytes % (Manual) (0-10) % Toxic Granulation Platelet Estimate (NORMAL) Large Platelets Polychromasia Hypochromasia (manual) Anisocytosis (manual) Sodium (132-148) mmol/L Potassium (3.6-5.2) mmol/L Chloride (98-107) mmol/L Carbon Dioxide (22-30) mmol/L Anion Gap (10-20) BUN (7-17) mg/dL Creatinine 1.2 (0.7-1.2) mg/dL Est GFR ( Amer) Est GFR (Non-Af Amer) POC Glucose (mg/dL) 170 H 178 H (65-110) mg/dL Random Glucose (65-105) mg/dL Calcium (8.6-10.4) mg/dl Phosphorus (2.5-4.5) mg/dL Magnesium (1.6-2.3) mg/dL Total Bilirubin (0.2-1.3) mg/dL AST (14-36) U/L ALT (9-52) U/L Alkaline Phosphatase (38-126) U/L Total Protein (6.3-8.3) g/dL Albumin (3.5-5.0) g/dL Globulin (2.2-3.9) gm/dL Albumin/Globulin Ratio (1.0-2.1) Urine Collection Time 24 HRS Urine Total Volume 1625 mL Creatinine Clearance 32.0 L (87-107) mL/min Laboratory Results - last 24 hr 05/27/17 05/28/17 05/28/17 18:41 00:09 05:35 WBC RBC Hgb Hct MCV MCH MCHC RDW Plt Count MPV Neut % (Auto) Lymph % (Auto) Bremer % (Auto) Eos % (Auto) Baso % (Auto) Neut # Lymph # Bremer # Eos # Baso # Neutrophils % (Manual) Band Neutrophils % Lymphocytes % (Manual) Monocytes % (Manual) Toxic Granulation Platelet Estimate Large Platelets Polychromasia Hypochromasia (manual) Anisocytosis (manual) Sodium Potassium Chloride Carbon Dioxide Anion Gap BUN Creatinine 1.2 Est GFR ( Amer) Est GFR (Non-Af Amer) POC Glucose (mg/dL) 178 H 170 H Random Glucose Calcium Phosphorus Magnesium Total Bilirubin AST ALT Alkaline Phosphatase Total Protein Albumin Globulin Albumin/Globulin Ratio Urine Collection Time 24 Urine Total Volume 1625 Creatinine Clearance 32.0 L 05/28/17 05/28/17 05/28/17 05:59 05:59 11:37 WBC 18.1 H RBC 3.38 L Hgb 9.7 L Hct 28.8 L MCV 85.3 MCH 28.8 MCHC 33.7 RDW 18.7 H Plt Count 214 MPV 8.2 Neut % (Auto) 87.1 H Lymph % (Auto) 6.5 L Bremer % (Auto) 6.3 Eos % (Auto) 0.0 Baso % (Auto) 0.1 Neut # 15.7 H Lymph # 1.2 Bremer # 1.1 H Eos # 0.0 Baso # 0.0 Neutrophils % (Manual) 81 H Band Neutrophils % 5 H Lymphocytes % (Manual) 8 L Monocytes % (Manual) 6 Toxic Granulation Present Platelet Estimate Normal Large Platelets Present Polychromasia Slight Hypochromasia (manual) Slight Anisocytosis (manual) Moderate Sodium 133 Potassium 3.6 Chloride 99 Carbon Dioxide 26 Anion Gap 11 BUN 20 H Creatinine 1.0 Est GFR ( Amer) > 60 Est GFR (Non-Af Amer) 53 POC Glucose (mg/dL) 194 H Random Glucose 164 H Calcium 7.7 L Phosphorus 3.8 Magnesium 1.5 L Total Bilirubin 0.8 AST 40 H ALT 27 Alkaline Phosphatase 113 Total Protein 5.3 L Albumin 2.6 L Globulin 2.7 Albumin/Globulin Ratio 1.0 Urine Collection Time Urine Total Volume Creatinine Clearance Fingerstick Blood Sugar Results: 194 Critical Care Progress Note - Nutrition Nutrition: Nutrition Category Date Time Status NPO Diet [DIET] Diets 05/24/17 Dinner Active
--- NOTE | 2017-05-28 17:45 | CP.PCM.PN ---
Subjective - Date & Time of Evaluation Date of Evaluation: 05/28/17 Time of Evaluation: 15:30 - Subjective Subjective: Hospitalist Progress Note Patient was seen and examined at 3:30 PM 05/28/17 ICU Bed 11 86 year old female with a PMHx of DM 2 and HTN who presented 05/19/17 with diffusely radiating, 10/10, sharp LLQ abdominal pain x 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 She was admitted for further treatment and evaluation. Currently upon FULL ROS NO chest pain NO palpitations Soreness in the throat has resolved Abdominal pain is controlled and only hurts if some one like a doctor pushes down on it NO headache NO changes in vision NO n/v NO changes in hearing Colostomy bag with watery dark brown green stool is present Assessment and Plan: 1). Sigmoid colon mass/Liver lesion likely mets/Weight loss and abdominal pain -CT-Abd/Pelvis on admission showed 8.6 cm sigmoid mass with extensive hepatic metastasis. Bilateral renal cysts with large right upper pole renal cyst. Small bilateral pleural effusion and small pericardial effusion. Small hiatal hernia. Possible small diverticulum of the herniated stomach CEA elevated @ 11.6. (Normal = 0-3.0) GI consult Dr Foster ,appreciated Dr Bright oncology consult - Recs appreciated Surgery consult Dr Richard-appreciated Colonscopy (05/22/17): Non-bleeding external and internal hemorrhoids. 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 Biopsied F/U on Pathology report from biopsy. Morphine 2 Q6H IV PRN for pain control Barium Enema (05/23/2017): Contrast flowed freely through the rectum to the level of the distal sigmoid colon. At the level of the distal sigmoid colon, contrast slowly traversed through a very thin and irregular channel to the level of the mid sigmoid at the site of the known sigmoid carcinoma. Contrast did not flow freely past this level. Exam was subsequently terminated. These findings were concerning for a near complete obstruction of the bowel lumen from the adjacent obstructing tumor. Surgery Dr. Richard Hemotology/Oncology Dr. Bright GI Dr. Foster 05/25/17: Patient underwent laparotomy with diverting colostomy and liver biopsy. She was found to have the colonic mass invading the bladder and therefore was not entirely resectable Liver Biopsy showed necrotic materal: consideration should be made in getting IR involved to do possible FNA of Liver Lesions after Palliative Care Nurse Durbin speaks with family. Awaiting pathology report from surgery Rocephin 1 mg IV Q12H (05/25/17) Flagyl 250 mg IV Q8H (05/25/17) 2). Respiratory Acidosis Patient was extubated on 05/26/17 and placed on BiPap and Bicarb Drip Patient no longer on BiPap 3). DM 2 Aspart ISS Q6H Low Dose Accuchecks 4).Hypertension HOLDING Labetolol 100mg Q12H, Enalapril 15 mg Daily, and Cardizem [id number] Daily 5). Anemia Ordered Iron Sat, Iron/TIBC, Ferritin, and Reticulocyte Count S/P Transfusion upon admission H/H Stable Cont. to monitor 6). Pericardial effusion/cardiomegaly Cardiology Consulted (Dr. Portillo) - help appreciated ECHO (05/20/17): Diastolic Dysfunction Grade I-abnormal relaxation pattern, Trace TR and MR 7). Bilateral Renal Cysts U/S Renal 05/26/17: Right Upper Pole renal cyst measures approximately 10.4x8.3x9.2 cm. Left upper pole renal cyst measures 2.2x1.4x1.6 cm Will need follow up U/S in 6 months 8). DVT and GI prophylaxis HOLDING Heparin Dialudid 0.5 mg IV Q4H PRN Severe Pain Protonix 40 mg IV Q12H F/U 24 hour urine study. 05/26/17:Spoke with Son Dominick Mckoy ([phone]) who was at bedside. He provided a copy of PROXY DIRECTIVE which designates renetta Prabhakar ) as POA/Health Care Proxy and patient is FULL CODE. Please see this document that was placed in the front of the chart. 05/28/17: Spoke with Niece/POA Lucretia Prabhakar and updated her on patient status. Palliative Care Nurse Ramakrishna will speak with patient and family to discuss goals of care on Monday05/29/17. Medicine Team should coordinate with Nurse Durbin after her meeting with family and decision is reached as to extent of care, and then proceed with arranging FNA Biopsy of Liver Lesions as recommended by Heme/Onc Dr. Bright. Arya Remy D.O. Objective - Vital Signs/Intake and Output Vital Signs (last 24 hours): Temp Pulse Resp BP Pulse Ox 98.6 F 109 H 17 159/82 H 98 05/28/17 08:00 05/28/17 15:00 05/28/17 15:00 05/28/17 12:59 05/28/17 13:00 Intake and Output: 05/28/17 05/28/17 06:59 18:59 Intake Total 1000 950 Output Total 675 400 Balance 325 550 - Medications Medications: Current Medications Albuterol/Ipratropium (Duoneb 3 Mg/0.5 Mg (3 Ml) Ud) 3 ml INH RQ6 PRN PRN Reason: Shortness of Breath Last Admin: 05/28/17 08:33 Dose: 3 ml Hydromorphone HCl (Dilaudid) 0.5 mg IVP Q4H PRN PRN Reason: Pain, moderate (4-7) Last Admin: 05/28/17 15:15 Dose: 0.5 mg Ceftriaxone Sodium 1 gm/ (Sodium Chloride) 100 mls @ 100 mls/hr IVPB Q12H YANIQUE Last Admin: 05/28/17 16:39 Dose: 100 mls/hr Metronidazole (Flagyl) 500 mg in 100 mls @ 100 mls/hr IVPB Q6 YANIQUE Last Admin: 05/28/17 13:00 Dose: 100 mls/hr Ciprofloxacin (Cipro 200mg/100ml D5w) 100 mls @ 100 mls/hr IVPB Q12 YANIQUE Last Admin: 05/28/17 10:31 Dose: 100 mls/hr Dextrose/Sodium Chloride (Dextrose 5%/0.9% Ns 1000 Ml) 1,000 mls @ 50 mls/hr IV .Q20H YANIQUE Last Admin: 05/28/17 12:46 Dose: 50 mls/hr Insulin Aspart (Novolog) 0 unit SC Q6H YANIQUE PRN Reason: Protocol Last Admin: 05/28/17 12:00 Dose: 1 unit Pantoprazole Sodium (Protonix Inj) 40 mg IVP DAILY YANIQUE - Labs Labs: 05/28/17 05:59 05/28/17 05:59 PT 14.5 SECONDS (9.7-12.2) H 05/25/17 07:51 INR 1.3 01/11/18 07:51 APTT 31 SECONDS (21-34) 05/25/17 07:51
--- NOTE | 2017-05-28 20:07 | CP.PCM.PN ---
Subjective - Date & Time of Evaluation Date of Evaluation: 05/28/17 Time of Evaluation: 18:30 - Subjective Subjective: No complaints. Objective - Vital Signs/Intake and Output Vital Signs (last 24 hours): Temp Pulse Resp BP Pulse Ox 98.5 F 108 H 17 162/90 H 99 05/28/17 16:00 05/28/17 18:00 05/28/17 18:00 05/28/17 17:59 05/28/17 18:00 Intake and Output: 05/28/17 05/29/17 18:59 06:59 Intake Total 1100 Output Total 510 Balance 590 - Medications Medications: Current Medications Albuterol/Ipratropium (Duoneb 3 Mg/0.5 Mg (3 Ml) Ud) 3 ml INH RQ6 PRN PRN Reason: Shortness of Breath Last Admin: 05/28/17 08:33 Dose: 3 ml Hydromorphone HCl (Dilaudid) 0.5 mg IVP Q4H PRN PRN Reason: Pain, moderate (4-7) Last Admin: 05/28/17 15:15 Dose: 0.5 mg Metronidazole (Flagyl) 500 mg in 100 mls @ 100 mls/hr IVPB Q6 YANIQUE Last Admin: 05/28/17 18:36 Dose: 100 mls/hr Ciprofloxacin (Cipro 200mg/100ml D5w) 100 mls @ 100 mls/hr IVPB Q12 YANIQUE Last Admin: 05/28/17 10:31 Dose: 100 mls/hr Dextrose/Sodium Chloride (Dextrose 5%/0.9% Ns 1000 Ml) 1,000 mls @ 50 mls/hr IV .Q20H [facility] Last Admin: 05/28/17 12:46 Dose: 50 mls/hr Insulin Aspart (Novolog) 0 unit SC Q6H YANIQUE PRN Reason: Protocol Last Admin: 05/28/17 18:35 Dose: 2 unit Pantoprazole Sodium (Protonix Inj) 40 mg IVP DAILY [facility] - Labs Labs: 05/28/17 05:59 05/28/17 05:59 PT 14.5 SECONDS (9.7-12.2) H 05/25/17 07:51 INR 1.3 05/25/17 07:51 APTT 31 SECONDS (21-34) 05/25/17 07:51 - Head Exam Head Exam: ATRAUMATIC - Eye Exam Eye Exam: Normal appearance - ENT Exam ENT Exam: Mucous Membranes Dry - Respiratory Exam Respiratory Exam: NORMAL BREATHING PATTERN - Cardiovascular Exam Cardiovascular Exam: +S1, +S2 - GI/Abdominal Exam GI & Abdominal Exam: Normal Bowel Sounds Assessment and Plan (1) Colonic mass Assessment & Plan: no invasive carcinoma by biopsy but likely sampling bias Status: Acute (2) Liver lesion Assessment & Plan: negative for carcinoma by intra op biopsy rec liver lesion core biopsy by IR Status: Acute (3) Anemia Assessment & Plan: chronic disease Status: Acute (4) Coagulopathy Status: Acute
--- NOTE | 2017-05-29 04:55 | CARD ---
APPROVED REPORT EKG Measurement Heart [id number] <Conclusion> Accelerated Junctional rhythm Low voltage QRS Abnormal ECG
[2017-05-29] MEDS: metroNIDAZOLE IV 500 mg/100 ml 500 MG/100 ML BAG IVPB SCH ×4 (06:00→17:46)
[2017-05-29] MEDS: (Novolog) Insulin Aspart, Recombinant 100 u/ml 10 ml vial SC SCH ×4 (06:30→17:45)
[2017-05-29 06:49] LABS: BASO % 0.3 % (0.0-2.0); HEMOGLOBIN 9.8 g/dL (11.0-16.0); LYMPH # 0.7 K/uL (1.0-4.3); LYMPH % 5.1 % (20.0-40.0); MEAN CELL VOLUME 85.2 fL (81.0-99.0); MEAN CORPUSCULAR HEMOGLOBIN 28.4 pg (27.0-31.0); MEAN CORPUSCULAR HGB CONC 33.3 g/dL (33.0-37.0); MEAN PLATELET VOLUME 7.9 fL (7.2-11.7); MONO % 7.3 % (0.0-10.0); NEUT # 12.6 K/uL (1.8-7.0); NEUT % 87.3 % (50.0-75.0); PLATELET COUNT 197 K/uL (130-400); RBC 3.46 Mil/uL (3.80-5.20); RED CELL DISTRIBUTION WIDTH 18.5 % (11.5-14.5); WHITE BLOOD COUNT 14.4 K/uL (4.8-10.8)
[2017-05-29] MEDS: Albuterol-Ipratrop 3 mg / 0.5 (3 ml) UD INH PRN ×2 (07:19→13:32)
--- NOTE | 2017-05-29 07:20 | OP ---
PROCEDURE DATE: 05/25/2017 PREOPERATIVE DIAGNOSIS: Cancer sigmoid with complete obstruction. POSTOPERATIVE DIAGNOSES: Cancer sigmoid with complete obstruction with severely extended large bowel to the point that it was not packable away for the surgery. The tumor was invading the posterior aspect of the bladder and the tumor appeared to be unresectable at this time. PROCEDURES: Laparotomy, decompression of colon, extensive irrigation with 10 L of fluid plus the Ceclor, attempted resection, same was aborted due to the fact that the tumor was invading the posterior wall of the stomach, and diverting total end colostomy. Liver biopsy. SURGEON: Joe Richard MD. ENGINEER FISHING VESSEL: Dr. Kellie Lynn, PGY-2. TYPE OF ANESTHESIA: General with endotracheal intubation. ANESTHESIA ADMINISTERED BY: . ESTIMATED BLOOD LOSS: 100 mL. SPECIMEN: Small pieces of bowel from the staple lines, and and 3 liver biopsies. DESCRIPTION OF PROCEDURE: The patient was taken to the operating room, placed on the operating table in supine position, after induction of anesthesia, the abdomen was prepped with Chloraprep and draped with sterile draping and an incision made removing the previous abdominal scar was done that was also sent as a specimen. The incision was deepened to the subcu from just above the pubis to just slightly above the umbilicus. The virgin area was found and the peritoneal cavity was entered just above the umbilicus and the abdominal wall incision was extended caudally to inferior margin of the superior end of the incision. Upon opening the belly, the colon eviscerated spontaneously due to the pressure and the volume of content in both cecum, ascending and transverse colon. Attempt at packing stuff away was possible, so it was elected to put a pursestring suture in the sigmoid area and to evacuate it with stool suctioning. This was carried out. Some fecal spillage was noted. After adequate evacuation of content was carried out, then the area was cleansed. The initial aperture of the sigmoid was closed with staple using TA-30 blue. The area was then cleansed with large amount of saline solutions and the sigmoid was mobilized from the left gutter and it was bluntly dissected medially; however, the bowel was quite distended to approximately 10 cm or more and we tried to create a rent in the mesenteric side of the sigmoid close to the tumor to apply a TA-60. We went as close to the bowel wall as possible without perforating it and then we were able to insert the TA and fired. The non-crushing clamps were applied on the proximal side and the sigmoid was divided. Then, another staple was applied just below the non-crushing clamp and the clamp was removed. Then, some blunt to sharp dissection was carried out to mobilize the sigmoid. The remaining stump was decompressed. An additional segment was removed down to the tumor. Again, additional irrigation was carried out with an additional 5 L of saline solution. The area was cleansed. Some noted stool was noted and removed. Then, we irrigated with antibiotic solution. A circular incision was made in the abdominal wall to bring out the colostomy. Colostomy site was created and the staple line was brought out. The end of the sigmoid was brought out through the colostomy site. After what appeared to be adequate irrigation was noted, the 2 Jah drains were placed in the peritoneal cavity and brought out through the separate stab wounds. The lower drain was placed upwards to the right gutter and adjacent to the liver and the other one in the pelvis. Prior to closing, we noted that the liver mass was within reach and this was biopsied x3 with the Monopty automatic needle and the collected specimens also sent. The abdomen was then closed using double-stranded PDS sutures and the skin was approximated with skin edel. The drains were secured with nylon sutures and the colostomy was sutured to the fascia and skin using 3-0 chromic sutures. The colostomy was then matured and a bag was applied and the patient was left intubated and to be transferred to the recovery room. Arrangements were made to have the patient transferred to ICU postop. Joe Richard MD
[2017-05-29 08:06] LABS: ALB/GLOB RATIO 0.9 (1.0-2.1); ALBUMIN 2.4 g/dL (3.5-5.0); ALT/SGPT 22 U/L (9-52); AST/SGOT 21 U/L (14-36); BLOOD UREA NITROGEN 15 mg/dL (7-17); CALCIUM 7.9 mg/dl (8.6-10.4); GFR AFRICAN-AMERICAN > 60; GFR NON-AFRICAN AMERICAN > 60
[2017-05-29 08:41] LABS: ANISOCYTOSIS SLIGHT; BANDS 5 % (0-2); LYMPHOCYTE 3 % (20-40); MONOCYTE 5 % (0-10); NEUTROPHIL 87 % (50-75); PLATELET ESTIMATE NORMAL (NORMAL); POIKILOCYTOSIS SLIGHT; TOTAL CELLS COUNTED 100
[2017-05-29 08:42] LABS: HYPOCHROMIC SLIGHT; TARGET CELLS SLIGHT
--- NOTE | 2017-05-29 08:58 | CP.PCM.PN ---
<Angela Barraza - Last Filed: 05/29/17 14:41> Subjective - Date & Time of Evaluation Date of Evaluation: 05/29/17 Time of Evaluation: 08:58 - Subjective Subjective: Medicine progress note for Dr. Kirkland's service Patient was seen and examined at bedside in no acute distress. Patient's son was present at side. Patient reports feeling a little better, but still has a lot of discomfort" and pain post-op. She says it hurts most when she transfers from bed to chair. Patient otherwise reports no complaints; Patient denies having nausea, vomiting, fevers, chills, chest pain, leg pain, and headaches. Objective - Vital Signs/Intake and Output Vital Signs (last 24 hours): Temp Pulse Resp BP Pulse Ox 98.4 F 97 H 19 151/88 H 98 05/29/17 08:00 05/29/17 08:00 05/29/17 08:00 05/29/17 08:00 05/29/17 08:00 Intake and Output: 05/29/17 05/29/17 06:59 18:59 Intake Total 600 150 Output Total 345 310 Balance 255 -160 - Medications Medications: Current Medications Albuterol/Ipratropium (Duoneb 3 Mg/0.5 Mg (3 Ml) Ud) 3 ml INH RQ6 PRN PRN Reason: Shortness of Breath Last Admin: 05/29/17 07:19 Dose: 3 ml Hydromorphone HCl (Dilaudid) 0.5 mg IVP Q4H PRN PRN Reason: Pain, moderate (4-7) Last Admin: 05/29/17 08:25 Dose: 0.5 mg Metronidazole (Flagyl) 500 mg in 100 mls @ 100 mls/hr IVPB Q6 YANIQUE Last Admin: 05/29/17 06:00 Dose: 100 mls/hr Ciprofloxacin (Cipro 200mg/100ml D5w) 100 mls @ 100 mls/hr IVPB Q12 YANIQUE Last Admin: 05/28/17 22:00 Dose: 100 mls/hr Dextrose/Sodium Chloride (Dextrose 5%/0.9% Ns 1000 Ml) 1,000 mls @ 50 mls/hr IV .Q20H YANIQUE Last Admin: 05/28/17 12:46 Dose: 50 mls/hr Insulin Aspart (Novolog) 0 unit SC Q6H [facility] PRN Reason: Protocol Last Admin: 05/29/17 06:30 Dose: 2 unit Pantoprazole Sodium (Protonix Inj) 40 mg IVP DAILY YANIQUE - Labs Labs: 05/29/17 06:47 05/29/17 06:47 PT 14.5 SECONDS (9.7-12.2) H 05/25/17 07:51 INR 1.3 05/25/17 07:51 APTT 31 SECONDS (21-34) 05/25/17 07:51 - Constitutional Appears: Non-toxic, No Acute Distress - Head Exam Head Exam: ATRAUMATIC, NORMAL INSPECTION - Eye Exam Eye Exam: EOMI - ENT Exam ENT Exam: Mucous Membranes Moist - Respiratory Exam Respiratory Exam: Clear to Ausculation Bilateral, NORMAL BREATHING PATTERN. absent: Rhonchi, Wheezes, Respiratory Distress - Cardiovascular Exam Cardiovascular Exam: REGULAR RHYTHM, +S1, +S2 - GI/Abdominal Exam GI & Abdominal Exam: Soft, Tenderness (s/p lapartomy, colostomy- with deep palpation), Diminished Bowel Sounds, Normal Bowel Sounds. absent: Distended, Firm Additional comments: Dressings dry,intact, clean; left colostomy bag in place- draining fluid and stool. - Extremities Exam Extremities Exam: Pedal Edema (pitting edema b/l). absent: Calf Tenderness, Tenderness - Neurological Exam Neurological Exam: Alert, Awake, Oriented x3 - Psychiatric Exam Psychiatric exam: Normal Affect, Normal Mood - Skin Skin Exam: Dry, Normal Color, Warm Assessment and Plan - Assessment and Plan (Free Text) Plan: 1). Sigmoid colon mass/Liver lesion likely mets/Weight loss and abdominal pain * CT-Abd/Pelvis on admission showed 8.6 cm sigmoid mass with extensive hepatic metastasis. Bilateral renal cysts with large right upper pole renal cyst. Small bilateral pleural effusion and small pericardial effusion. Small hiatal hernia. Possible small diverticulum of the herniated stomach * CEA elevated @ 11.6. (Normal = 0-3.0) * Colonscopy (05/22/17): Non-bleeding external and internal hemorrhoids. 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 At the level of the distal sigmoid colon, contrast slowly traversed through a very thin and irregular channel to the level of the mid sigmoid at the site of the known sigmoid carcinoma. Contrast did not flow freely past this level. Exam was subsequently terminated. These findings were concerning for a near complete obstruction of the bowel lumen from the adjacent obstructing tumor. * GI consult Dr Foster ,appreciated * Dr Bright oncology consult - Recs appreciated * Surgery consult Dr Richard-appreciated 05/25/17: Patient underwent laparotomy with diverting colostomy and liver biopsy. She was found to have the colonic mass invading the bladder and therefore was not entirely resectable * Liver Biopsy: necrotic tissue Medications: * Morphine 2 Q6H IV PRN for pain control * Flagyl 250 mg IV Q8H (05/25/17) * Ciprofloxacin 200mg Q12H (03/28/18) * Discontinued Rocephin 1 mg IV Q12H 2). Respiratory Acidosis * Patient was extubated on 05/26/17 and placed on BiPap and Bicarb Drip * Patient no longer on BiPap 3). DM 2 * Aspart ISS Q6H Low Dose * Accuchecks 4).Hypertension * HOLDING Labetolol 100mg Q12H, Enalapril 15 mg Daily, and Cardizem [id number] Daily 5). Anemia * F/U: Iron Sat, Iron/TIBC, Ferritin, and Reticulocyte Count * S/P Transfusion upon admission * H/H Stable * Continue to monitor 6). Pericardial effusion/cardiomegaly * Cardiology Consulted (Dr. Portillo) - help appreciated * as per Dr. Portillo, continue medical therapy; effusion is small; LV function is normal * ECHO (05/20/17): Diastolic Dysfunction Grade I-abnormal relaxation pattern, Trace TR and MR 7). Bilateral Renal Cysts * U/S Renal 05/26/17: Right Upper Pole renal cyst measures approximately 10.4x8.3x9.2 cm. Left upper pole renal cyst measures 2.2x1.4x1.6 cm * Will need follow up U/S in 6 months 8). Leukocytosis/Bandemia * trending down * Continue Flagyl and Cipro IV * f/u procalcitonin * Follow morning labs 9). DVT and GI prophylaxis * Heparin 5000sc Q8 * Dilaudid 0.5 mg IV Q4H PRN Severe Pain * Protonix 40 mg IV Q12H * PT * Palliative care: patient is DNR/DNI as of 05/29/17. Polst form completed. Romero Mckoy ([phone]) Renetta Prabhakar ([phone]) as POA/Health Care Proxy <CristinkristieMamta V - Last Filed: 05/30/17 06:53> Objective - Vital Signs/Intake and Output Vital Signs (last 24 hours): Temp Pulse Resp BP Pulse Ox 97.9 F 102 H 18 158/86 H 99 05/30/17 00:00 05/30/17 00:00 05/30/17 00:00 05/30/17 00:00 05/30/17 00:00 Intake and Output: 05/29/17 05/30/17 18:59 06:59 Intake Total 809 600 Output Total 945 160 Balance -136 440 - Medications Medications: Current Medications Albuterol/Ipratropium (Duoneb 3 Mg/0.5 Mg (3 Ml) Ud) 3 ml INH RQ6 PRN PRN Reason: Shortness of Breath Last Admin: 05/29/17 13:32 Dose: 3 ml Heparin Sodium (Porcine) (Heparin) 5,000 units SC Q8 [facility] Last Admin: 05/29/17 22:01 Dose: 5,000 units Hydromorphone HCl (Dilaudid) 0.5 mg IVP Q4H PRN PRN Reason: Pain, moderate (4-7) Last Admin: 05/30/17 01:23 Dose: 0.5 mg Metronidazole (Flagyl) 500 mg in 100 mls @ 100 mls/hr IVPB Q6 [facility] Last Admin: 05/30/17 00:00 Dose: 100 mls/hr Ciprofloxacin (Cipro 200mg/100ml D5w) 100 mls @ 100 mls/hr IVPB Q12 [facility] Last Admin: 05/29/17 22:00 Dose: 100 mls/hr Dextrose/Sodium Chloride (Dextrose 5%/0.9% Ns 1000 Ml) 1,000 mls @ 50 mls/hr IV .Q20H YANIQUE Last Admin: 05/29/17 18:24 Dose: 50 mls/hr Insulin Aspart (Novolog) 0 unit SC Q6H [facility] PRN Reason: Protocol Last Admin: 05/30/17 00:10 Dose: Not Given Pantoprazole Sodium (Protonix Inj) 40 mg IVP DAILY [facility] Last Admin: 05/29/17 11:00 Dose: 40 mg - Labs Labs: 05/29/17 06:47 05/29/17 06:47 PT 14.5 SECONDS (9.7-12.2) H 05/25/17 07:51 INR 1.3 05/25/17 07:51 APTT 31 SECONDS (21-34) 05/25/17 07:51 Attending/Attestation - Attestation I have personally seen and examined this patient.: Yes I have fully participated in the care of the patient.: Yes I have reviewed all pertinent clinical information, including history, physical exam and plan: Yes Notes (Text): This is late computer entry for 05/29/17. Patient seen, examined and case discussed with day-time resident. Patient is postoperative day four for laparatomy with diverting colostomy and liver biopsy. Patient is in the ICU awaiting for bed to be available on the floors. Patient seen in the ICU bed 11 sitting in chair, with NGT tube present and mild stool present in ostomy bag is in present. patient is present with her brother at bedside and her son Jaden. Family has spoken with palliative care, code status updated for DNR/DNI. Family would like to bring the patient home when she is stable from the hospital. Heme-oncology to speak with family in regards to chemo for palliation and if FNA of liver lesion required? Per view of labs, potassium was repleted. patient remains with leukocytosis with bandemia. I have ordered for blood cultures, procalcitonin, and requested for infectious disease consult. Physical therapy evaluation reordered. Will follow-up with surgery to determine when NGT tube can be removed. Assessment and Plan: 1). Sigmoid colon mass Liver lesion Abdominal Pain * GI consult Dr Foster-->help appreciated * Dr Bright oncology consult-->help appreciated * Surgery consult Dr Richard--->help appreciated * Palliative Care on board * CT-Abd/Pelvis on admission showed 8.6 cm sigmoid mass with extensive hepatic metastasis. Bilateral renal cysts with large right upper pole renal cyst. Small bilateral pleural effusion and small pericardial effusion. Small hiatal hernia. Possible small diverticulum of the herniated stomach * CEA elevated @ 11.6. (Normal = 0-3.0) * Colonscopy (05/22/17): Non-bleeding external and internal hemorrhoids. 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 Biopsied * Superifical fragments of colonic epithelium with high grade dysplasia/ intraepithelial carcinoma with associated necrosis, invasion cannot be evaluated with superficial biopsy. * Morphine 2 Q6H IV PRN for pain control * Barium Enema (05/23/2017): Contrast flowed freely through the rectum to the level of the distal sigmoid colon. At the level of the distal sigmoid colon, contrast slowly traversed through a very thin and irregular channel to the level of the mid sigmoid at the site of the known sigmoid carcinoma. Contrast did not flow freely past this level. Exam was subsequently terminated. These findings were concerning for a near complete obstruction of the bowel lumen from the adjacent obstructing tumor. * Operative note (05/25/17): Laparotomy, decompression of colon, extensive irrigation with 10L of fluid pus the Ceclor, attempted resection, same was aborted due to the fact the tumors have invaded the posterior wall of the somach , and diverting total end colostomy, liver biopsy * Pathology: skin with fibrosis, Liver biospy: fragments of necrotic non- viable tissue, Trimmings: portion of colonic wall with edema, muscular layer hypertrophy * Patient was extubated on 05/26/17. * Abx: Ciprofloaxcin 200mg IV Q12H (active since 05/28/17) and Flagyl 500mg IVPB Q 6H (active since 05/27/17) * Dilaudid 0.5mg IVP Q4H PRN moderate pain 2. Sepsis * leukocytosis, bandemia, tachycardia * repeat Blood cultures (05/29/17) * Procalcitonin is elevated * Infectious Disease consult requested * Abx: Ciprofloaxcin 200mg IV Q12H (active since 05/28/17) and Flagyl 500mg IVPB Q 6H (active since 05/27/17) * 05/28/17: Blood cultures: no growth after 24 hours X2 * 05/28/17: urine: no growth * 05/25/17: peritoneal fluid: gram stain final * 05/25/17: MRSA not detected 4).DM 2 * Aspart ISS Q6H Low Dose * Accuchecks Q6H * Follow-up with surgery when patient is ready for diet 4).Hypertension * HOLDING Labetolol 100mg Q12H, Enalapril 15 mg Daily, and Cardizem [id number] Daily 5).Anemia * S/P Transfusion upon admission * H/H Stable * Cont. to monitor 6). Pericardial effusion/cardiomegaly * Cardiology Consulted (Dr. Portillo) - help appreciated * The overall left ventricular function is normal. The effusion is small. There is no evidence of tamponade. medical therapy. no contraindication to the planned colonoscopy * ECHO (05/20/17): Diastolic Dysfunction Grade I-abnormal relaxation pattern, Trace TR and MR 7). Bilateral Renal Cysts * U/S Renal 05/26/17: Right Upper Pole renal cyst measures approximately 10.4x8.3x9.2 cm. Left upper pole renal cyst measures 2.2x1.4x1.6 cm * Will need follow up U/S in 6 months 8). DVT and GI prophylaxis * Heparin 5000 units subq 8H * Dialudid 0.5 mg IV Q4H PRN Severe Pain * Protonix 40 mg IV Q12H * Palliative care on board * PROXY DIRECTIVE which designates renetta Prabhakar ([phone]) as POA/Health Care Proxy and patient is FULL CODE. * Code status updated to DNR/DNI following conversation with family 05/29/17
[2017-05-29] MEDS: Ciprofloxacin 200mg/100ml D5W 100 ML IVPB SCH ×2 (10:00→22:00)
[2017-05-29] MEDS: Dextrose 5%/0.9% NS 1,000 ML IV SCH ×2 (11:57→18:24)
--- NOTE | 2017-05-29 11:57 | PN ---
DATE: LOCATION: ICU 11. SUBJECTIVE: This is an 86-year-old female, seen early in rounds today in the presence of her son as well as the nursing staff on the floor without significant clinical changes. No reported chest pain, significant shortness of breath or active bleeding, but intermittent period of postsurgical abdominal pain. PHYSICAL EXAMINATION: GENERAL: An 86-year-old female. VITAL SIGNS: Afebrile with pulse of 94, respiratory rate 18/20, blood pressure 144/84. HEENT: Showed mildly pale dry oral mucous membrane. Nonicteric sclerae. LUNGS: Few scattered crepitation. Decreased air entry at bases. HEART: Positive S1 and S2. ABDOMEN: No mass or organomegaly. No rebound tenderness or guarding, but generalized tenderness. Covered with clean dressing. DARRYL drainage is positive. Colostomy tube is functioning. EXTREMITIES: Mild lower extremity edematous changes. No clubbing or cyanosis. The patient was sitting on the chair in comfortable position. NEUROLOGIC: No reported new neurological deficits, sensory or motor. No reported focal deficits. Peripheral pulses bilaterally are positive. LABORATORY DATA: I has to be mentioned that today's labs showed improved white blood cells to 14.4 with hemoglobin 9.8, low with low hematocrit 29.5, but with normal platelet count and low potassium 3.1. Blood glucose level 208. Low calcium 7.9 with low albumin 2.4 and low total protein 5.1. IMPRESSION: 1. Left-sided colon cancer, with partial colon resection. 2. Questionable metastatic lesion to the liver. 3. Status post colostomy. 4. Reexacerbation of peptic ulcer disease. 5. Anemia, most likely secondary to above. 6. Electrolyte imbalance. 7. Bilateral large renal cyst by radiology study results. 8. Known history of hypertension. 9. Malnutritions, hypoalbuminemia. SUGGESTION: 1. Continue current management. 2. Again, the patient would need central hyperalimentation, that discussed with the staff on the floor as well as would need physical therapy. Further evaluation and recommendation to follow. Sp Leblanc MD
[2017-05-29] MEDS ORDERED: Potassium Chloride 20 mEq ER Tab PO SCH ×2 (12:00)
[2017-05-29] MEDS: Potassium Chloride 20 mEq/15 ml LIQ UD PO SCH ×2 (12:05→17:59)
--- NOTE | 2017-05-29 13:20 | CP.PCM.CON ---
History of Present Illness - History of Present Illness History of Present Illness: Palliative consult requested by Doctor Norberto Remy for goals of care discussion Patient is admitted from home with left sided abdominal pain X 4 weeks. Pain was aggravated by the food and fallowed with non bloody diarrhea. patient reported unwanted weight loss, decrease appetite and decreased urine output. CT abdomen and pelvis significant for 8.6cm sigmoid mas and extensive liver mets. Patient underwent colonoscopy with Doctor Cristian and S/P colectomy with Colostomy creation by Doctor Hilary. The 2nd liver Bx pending today. Doctor Deangelo fallows for Onco. Chemo Tx suggested as an option based on patient's progress post Sx. PMH: DM, HTN Soc. Hx: single, had a partner for many years who was placed at [facility] with advanced Dementia, has one son who lives in [place]. There is extended family here in [place], the closest are brother and niece. Patient used to walk 2 ml a day before got sick Fam. Hx; per patient's son Juan Carlos, no known significant Hx Review of Systems - Review of Systems All systems: reviewed and no additional remarkable complaints except Review of Systems: ROS obtained from nursing due to patient being tired and with NGT. Per nursing patient had uneventful night. Past Patient History - Past Medical History & Family History Past Medical History?: Yes - Past Social History Smoking Status: Never Smoked - CARDIAC Hx Hypertension: Yes - ENDOCRINE/METABOLIC Hx Diabetes Mellitus Type 2: Yes - MUSCULOSKELETAL/RHEUMATOLOGICAL Hx Falls: No - PSYCHIATRIC Hx Substance Use: No - SURGICAL HISTORY Hx Surgeries: No - ANESTHESIA Hx Anesthesia: No Hx Anesthesia Reactions: No Meds Allergies/Adverse Reactions: Allergies Allergy/AdvReac Type Severity Reaction Status Date / Time aspirin AdvReac Verified 11/03/16 12:35 - Medications Medications: Current Medications Albuterol/Ipratropium (Duoneb 3 Mg/0.5 Mg (3 Ml) Ud) 3 ml INH RQ6 PRN PRN Reason: Shortness of Breath Last Admin: 05/29/17 07:19 Dose: 3 ml Hydromorphone HCl (Dilaudid) 0.5 mg IVP Q4H PRN PRN Reason: Pain, moderate (4-7) Last Admin: 05/29/17 08:25 Dose: 0.5 mg Metronidazole (Flagyl) 500 mg in 100 mls @ 100 mls/hr IVPB Q6 [facility] Last Admin: 05/29/17 11:59 Dose: 100 mls/hr Ciprofloxacin (Cipro 200mg/100ml D5w) 100 mls @ 100 mls/hr IVPB Q12 [facility] Last Admin: 05/29/17 10:00 Dose: 100 mls/hr Dextrose/Sodium Chloride (Dextrose 5%/0.9% Ns 1000 Ml) 1,000 mls @ 50 mls/hr IV .Q20H [facility] Last Admin: 05/29/17 11:57 Dose: Not Given Insulin Aspart (Novolog) 0 unit SC Q6H [facility] PRN Reason: Protocol Last Admin: 05/29/17 12:06 Dose: 1 unit Pantoprazole Sodium (Protonix Inj) 40 mg IVP DAILY [facility] Last Admin: 05/29/17 11:00 Dose: 40 mg Potassium Chloride (Potassium Chloride Oral Soln) 40 meq PO Q4 [facility] Stop: 05/29/17 16:01 Last Admin: 05/29/17 12:05 Dose: 40 meq Physical Exam - Constitutional Appears: No Acute Distress - Head Exam Head Exam: ATRAUMATIC, NORMAL INSPECTION, NORMOCEPHALIC - Eye Exam Eye Exam: EOMI, Normal appearance, PERRL Pupil Exam: NORMAL ACCOMODATION, PERRL - ENT Exam ENT Exam: Mucous Membranes Moist, Normal Exam Additional comments: NGT in place - Neck Exam Neck exam: Positive for: Normal Inspection - Respiratory Exam Respiratory Exam: Decreased Breath Sounds, NORMAL BREATHING PATTERN - Cardiovascular Exam Cardiovascular Exam: REGULAR RHYTHM - GI/Abdominal Exam GI & Abdominal Exam: Diminished Bowel Sounds Additional comments: Colostomy status, abdominal Sx wound, JPs X 2 - Rectal Exam Rectal Exam: Deferred - Exam Additional comments: Bailey cath - Extremities Exam Extremities exam: Positive for: pedal edema - Back Exam Back exam: NORMAL INSPECTION - Neurological Exam Neurological exam: Alert, Oriented x3 - Psychiatric Exam Psychiatric exam: Normal Affect, Normal Mood - Skin Skin Exam: Pallor Results - Vital Signs Recent Vital Signs: Last Vital Signs Temp 98.4 F 05/29/17 08:00 Pulse 97 H 05/29/17 08:00 Resp 19 05/29/17 08:00 BP 151/88 H 05/29/17 08:00 Pulse Ox 98 05/29/17 08:00 - Labs Result Diagrams: 05/29/17 06:47 05/29/17 06:47 Labs: Laboratory Results - last 24 hr 05/28/17 05/28/17 05/29/17 17:45 23:54 06:14 WBC RBC Hgb Hct MCV MCH MCHC RDW Plt Count MPV Neut % (Auto) Lymph % (Auto) [place] % (Auto) Eos % (Auto) Baso % (Auto) Neut # Lymph # [place] # Eos # Baso # Neutrophils % (Manual) Band Neutrophils % Lymphocytes % (Manual) Monocytes % (Manual) Platelet Estimate Hypochromasia (manual) Poikilocytosis (manual Anisocytosis (manual) Target Cells Sodium Potassium Chloride Carbon Dioxide Anion Gap BUN Creatinine Est GFR ( Amer) Est GFR (Non-Af Amer) POC Glucose (mg/dL) 208 H 184 H 208 H Random Glucose Calcium Total Bilirubin AST ALT Alkaline Phosphatase Total Protein Albumin Globulin Albumin/Globulin Ratio 05/29/17 05/29/17 05/29/17 06:47 06:47 11:17 WBC 14.4 H RBC 3.46 L Hgb 9.8 L Hct 29.5 L MCV 85.2 MCH 28.4 MCHC 33.3 RDW 18.5 H Plt Count 197 MPV 7.9 Neut % (Auto) 87.3 H Lymph % (Auto) 5.1 L [place] % (Auto) 7.3 Eos % (Auto) 0.0 Baso % (Auto) 0.3 Neut # 12.6 H Lymph # 0.7 L [place] # 1.0 H Eos # 0.0 Baso # 0.0 Neutrophils % (Manual) 87 H Band Neutrophils % 5 H Lymphocytes % (Manual) 3 L Monocytes % (Manual) 5 Platelet Estimate Normal Hypochromasia (manual) Slight Poikilocytosis (manual Slight Anisocytosis (manual) Slight Target Cells Slight Sodium 134 Potassium 3.1 L Chloride 101 Carbon Dioxide 24 Anion Gap 12 BUN 15 Creatinine 0.7 Est GFR ( Amer) > 60 Est GFR (Non-Af Amer) > 60 POC Glucose (mg/dL) 190 H Random Glucose 213 H Calcium 7.9 L Total Bilirubin 0.9 AST 21 ALT 22 Alkaline Phosphatase 110 Total Protein 5.1 L Albumin 2.4 L Globulin 2.6 Albumin/Globulin Ratio 0.9 L Assessment & Plan - Assessment and Plan (Free Text) Assessment: Palliative consult Power of durable inorganic chemistry professor copy on chart, PPS 30% I reviewed medical records, all diagnostic studies, examined and interviewed patent in the chair. Interview was limited due to NGT presence. patent seen and examined in recliner chair, in no acute distress looking tired. Patient answers short questions appropriately but easily gets tired and falls asleep. Skin is pale. Hb 9.8. Afebrile, WBC 14.4. Flagyl IV and Cipro IV on board. NGT in place to suction, small maroon colored discharge. Large abdominal dressing, left sided colostomy non functioning yet, except same maroon discharge. Hypoactive bowel sound. Moderate pedal edema. Bailey in place, urine tea color. Patient denied pain. Goals of care discussed with patient's son Raul at bed side. He admits being made aware of diagnosis and prognosis. Raul also admits still being in shock as his mother has been very active and had no health issues. However, patient has not seen Doctor regularly and had never had Colonoscopy testing. Doctor Bright had discussion with patient and her son as per report. The son told me patient wanted to go for chemo once she gets stronger. he describes patient as a " fighter". Psychosocial distress discussed. Lakhwinder is debiting on what would be the best option for his mother; weather to consider the [facility], or home PT in his uncle house where family could help patient or at his place in [place]. After discussing each option we agreed to wait and see how is patient recovering than make decision. The home PT was what the son and patient leaned forward to. The son is also doing self assessment questions himself if he could do better with his mother. The son admits to significant deal of stress. I taught him om stress relieving techniques and importance to share his feelings with family members. Code status discussed. Based on patient's wishes stated in Durable Power of Sandwich [employer] paper, patient wished for natural if she becomes terminal and meaningful recovery was not expected. He also stated that his grandfather " terrible " and based on that experience, his mother made sure it does not happen to her by completing the document. Benefices vs side effects of chemo discussed as quality of life concerns. Son plans on taking Leave of Absence from work and spend as much time as he can with his mother. I assisted him with completing the POLST. Lakhwinder choose DNR/DNI. Doctor Heriberto made aware of, order entered. I shared my contact info with patient's son and encouraged him to keep in touch once he leaves [place]. Impression * This is a very sick patient, newly diagnosed with metastatic colon cancer, post colon resection * Patient's son Lakhwinder was made aware of poor prognosis, he is NOK * In discussion with Doctor Bright before Sx patient choose to go for chemo Tx, post Sx * Son is debating on NICK vs home with PT discharge * Psychosocial distress; son is second guessing him self ; mixed feelings of guilt and regret * Son chose DNR/DNI as those are patient's wishes Suggestion * OOB to chair daily * Symptoms control * Transfer to floor when stable * Discharge planing; family prefers Home PT if patient stable enough. NICK is 2 nd option * Pastoral care for spiritual support * Agree with DNR/DNI Time spent in Advanced Planing was 45 min. I will fallow up with son and patient as needed Thank you for allowing me to assist you with care of this patient.
[2017-05-29] MEDS ORDERED: Potassium Chloride 20 mEq/15 ml LIQ UD PO ONE (18:00)
--- NOTE | 2017-05-29 18:21 | CP.PCM.PN ---
Subjective - Date & Time of Evaluation Date of Evaluation: 05/29/17 Time of Evaluation: 07:20 - Subjective Subjective: General Surgery Pt seen and examined. NAEO. She is resting in bed comfortably. Pain controlled. Denies nausea/vomiting. Tolerating ice chips. OOB to chair. Colostomy is producing stool and gas. Objective - Vital Signs/Intake and Output Vital Signs (last 24 hours): Temp Pulse Resp BP Pulse Ox 98.3 F 104 H 18 149/83 100 05/29/17 16:00 05/29/17 16:00 05/29/17 16:00 05/29/17 16:00 05/29/17 16:00 Intake and Output: 05/29/17 05/29/17 06:59 18:59 Intake Total 600 809 Output Total 345 310 Balance 255 499 - Medications Medications: Current Medications Albuterol/Ipratropium (Duoneb 3 Mg/0.5 Mg (3 Ml) Ud) 3 ml INH RQ6 PRN PRN Reason: Shortness of Breath Last Admin: 05/29/17 13:32 Dose: 3 ml Heparin Sodium (Porcine) (Heparin) 5,000 units SC Q8 [facility] Hydromorphone HCl (Dilaudid) 0.5 mg IVP Q4H PRN PRN Reason: Pain, moderate (4-7) Last Admin: 05/29/17 08:25 Dose: 0.5 mg Metronidazole (Flagyl) 500 mg in 100 mls @ 100 mls/hr IVPB Q6 [facility] Last Admin: 05/29/17 17:46 Dose: 100 mls/hr Ciprofloxacin (Cipro 200mg/100ml D5w) 100 mls @ 100 mls/hr IVPB Q12 [facility] Last Admin: 05/29/17 10:00 Dose: 100 mls/hr Dextrose/Sodium Chloride (Dextrose 5%/0.9% Ns 1000 Ml) 1,000 mls @ 50 mls/hr IV .Q20H [facility] Last Admin: 05/29/17 11:57 Dose: Not Given Insulin Aspart (Novolog) 0 unit SC Q6H [facility] PRN Reason: Protocol Last Admin: 05/29/17 17:45 Dose: 3 unit Pantoprazole Sodium (Protonix Inj) 40 mg IVP DAILY [facility] Last Admin: 05/29/17 11:00 Dose: 40 mg - Labs Labs: 05/29/17 06:47 05/29/17 06:47 PT 14.5 SECONDS (9.7-12.2) H 05/25/17 07:51 INR 1.3 05/25/17 07:51 APTT 31 SECONDS (21-34) 05/25/17 07:51 - Constitutional Appears: Non-toxic, No Acute Distress - Head Exam Head Exam: ATRAUMATIC, NORMOCEPHALIC - Eye Exam Eye Exam: EOMI. absent: Scleral icterus - Respiratory Exam Respiratory Exam: NORMAL BREATHING PATTERN. absent: Respiratory Distress - GI/Abdominal Exam GI & Abdominal Exam: Guarding (mild), Soft, Tenderness (appropriate). absent: Rigid, Rebound Additional comments: Ostomy functioning but dark and stained with succus Incision C/D/i - Neurological Exam Neurological Exam: Alert, Awake - Skin Skin Exam: Dry, Warm Assessment and Plan - Assessment and Plan (Free Text) Assessment: 86 F s/p exploratory laparotomy with diverting colostomy and liver biopsy POD#4 Plan: - Dressing changes PRN - DCed NGT - Analgesics/Anti-emetics PRN - OOB/Ambulation/Incentive spirometry - CLD - Keep naqvi - D/W Dr. Hilary Ruffin PGY4
[2017-05-30] MEDS: (Novolog) Insulin Aspart, Recombinant 100 u/ml 10 ml vial SC SCH ×4 (00:10→18:44)
[2017-05-30] MEDS: metroNIDAZOLE IV 500 mg/100 ml 500 MG/100 ML BAG IVPB SCH ×4 (06:00→19:12)
--- NOTE | 2017-05-30 06:51 | CP.PCM.PN ---
<Angela Barraza - Last Filed: 05/30/17 14:22> Subjective - Date & Time of Evaluation Date of Evaluation: 05/30/17 Time of Evaluation: 06:51 - Subjective Subjective: Medicine progress note for Dr. Kirkland's service Patient was seen and examined at bedside in no acute distress. Patient reports she is feeling much better today. She says she took pain medication which helped reduce her pain. She also report her back and body hurt from laying in bed for so long, but otherwise, patient has no complaints. Patient denies having chest pain, abdominal pain, nausea, vomiting, fevers, headaches, dizziness, leg pain. Objective - Vital Signs/Intake and Output Vital Signs (last 24 hours): Temp Pulse Resp BP Pulse Ox 97.9 F 102 H 18 158/86 H 99 05/30/17 00:00 05/30/17 00:00 05/30/17 00:00 05/30/17 00:00 05/30/17 00:00 Intake and Output: 05/29/17 05/30/17 18:59 06:59 Intake Total 809 600 Output Total 945 160 Balance -136 440 - Medications Medications: Current Medications Albuterol/Ipratropium (Duoneb 3 Mg/0.5 Mg (3 Ml) Ud) 3 ml INH RQ6 PRN PRN Reason: Shortness of Breath Last Admin: 05/29/17 13:32 Dose: 3 ml Heparin Sodium (Porcine) (Heparin) 5,000 units SC Q8 [facility] Last Admin: 05/30/17 06:00 Dose: 5,000 units Hydromorphone HCl (Dilaudid) 0.5 mg IVP Q4H PRN PRN Reason: Pain, moderate (4-7) Last Admin: 05/30/17 01:23 Dose: 0.5 mg Metronidazole (Flagyl) 500 mg in 100 mls @ 100 mls/hr IVPB Q6 [facility] Last Admin: 05/30/17 06:00 Dose: 100 mls/hr Ciprofloxacin (Cipro 200mg/100ml D5w) 100 mls @ 100 mls/hr IVPB Q12 [facility] Last Admin: 05/29/17 22:00 Dose: 100 mls/hr Dextrose/Sodium Chloride (Dextrose 5%/0.9% Ns 1000 Ml) 1,000 mls @ 50 mls/hr IV .Q20H [facility] Last Admin: 05/29/17 18:24 Dose: 50 mls/hr Insulin Aspart (Novolog) 0 unit SC Q6H [facility] PRN Reason: Protocol Last Admin: 05/30/17 00:10 Dose: Not Given Pantoprazole Sodium (Protonix Inj) 40 mg IVP DAILY [facility] Last Admin: 05/29/17 11:00 Dose: 40 mg - Labs Labs: 05/29/17 06:47 05/29/17 06:47 PT 14.5 SECONDS (9.7-12.2) H 05/25/17 07:51 INR 1.3 05/25/17 07:51 APTT 31 SECONDS (21-34) 05/25/17 07:51 - Additional Findings Additional findings: - Constitutional Appears: Non-toxic, No Acute Distress - Head Exam Head Exam: ATRAUMATIC, NORMAL INSPECTION - Eye Exam Eye Exam: EOMI - ENT Exam ENT Exam: Mucous Membranes Moist - Respiratory Exam Respiratory Exam: Clear to Ausculation Bilateral, NORMAL BREATHING PATTERN. absent: Rhonchi, Wheezes, Respiratory Distress - Cardiovascular Exam Cardiovascular Exam: REGULAR RHYTHM, +S1, +S2 - GI/Abdominal Exam GI & Abdominal Exam: Soft, Tenderness (s/p lapartomy, colostomy- with deep palpation), Diminished Bowel Sounds, Normal Bowel Sounds. absent: Distended, Firm Additional comments: Dressings dry,intact, clean; left colostomy bag in place- stool present. - Extremities Exam Extremities Exam: Pedal Edema (pitting edema b/l). absent: Calf Tenderness, Tenderness - Neurological Exam Neurological Exam: Alert, Awake, Oriented x3 - Psychiatric Exam Psychiatric exam: Normal Affect, Normal Mood - Skin Skin Exam: Dry, Normal Color, Warm Assessment and Plan - Assessment and Plan (Free Text) Plan: 1). Sigmoid colon mass/Liver lesion likely mets/Weight loss and abdominal pain * CT-Abd/Pelvis on admission showed 8.6 cm sigmoid mass with extensive hepatic metastasis. Bilateral renal cysts with large right upper pole renal cyst. Small bilateral pleural effusion and small pericardial effusion. Small hiatal hernia. Possible small diverticulum of the herniated stomach * CEA elevated @ 11.6. (Normal = 0-3.0) * Colonscopy (05/22/17): Non-bleeding external and internal hemorrhoids. 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 At the level of the distal sigmoid colon, contrast slowly traversed through a very thin and irregular channel to the level of the mid sigmoid at the site of the known sigmoid carcinoma. Contrast did not flow freely past this level. Exam was subsequently terminated. These findings were concerning for a near complete obstruction of the bowel lumen from the adjacent obstructing tumor. Consults * GI consult Dr Foster ,appreciated * Dr Bright oncology consult - Recs appreciated * suggests consulting IR for FNA biopsy of liver lesions to obtain diagnosis * Surgery consult Dr Richard-appreciated * 05/25/17: Patient underwent laparotomy with diverting colostomy and liver biopsy. She was found to have the colonic mass invading the bladder and therefore was not entirely resectable * Liver Biopsy: necrotic tissue * NGT removed on 05/29/17 * Keep naqvi * IR consulted for FNA biospy of liver lesions for cancer diagnosis; help appreciated Medications: * Morphine 2 Q6H IV PRN for pain control * Flagyl 250 mg IV Q8H (05/25/17) * Ciprofloxacin 200mg Q12H (03/28/18) * Discontinued Rocephin 1 mg IV Q12H 2). Sepsis * leukocytosis, bandemia * trending down * Continue Flagyl and Cipro IV * procalcitonin 4.15 * Repeat calcitonin: f/u results * Blood cx (05/28): no growth; urine cx: no growth * Peritoneal fluid stain: negative * Repeat blood cultures (05/29/17): f/u results * ID consulted, help appreciated 3). DM 2 * Aspart ISS Q6H Low Dose * Accuchecks 4).Hypertension * HOLDING Labetolol 100mg Q12H, Enalapril 15 mg Daily, and Cardizem [id number] Daily 5). Anemia * F/U: Iron Sat, Iron/TIBC, Ferritin, and Reticulocyte Count * S/P Transfusion upon admission * H/H Stable * Continue to monitor 6). Pericardial effusion/cardiomegaly * Cardiology Consulted (Dr. Portillo) - help appreciated * as per Dr. Portillo, continue medical therapy; effusion is small; LV function is normal * ECHO (05/20/17): Diastolic Dysfunction Grade I-abnormal relaxation pattern, Trace TR and MR 7). Bilateral Renal Cysts * U/S Renal 05/26/17: Right Upper Pole renal cyst measures approximately 10.4x8.3x9.2 cm. Left upper pole renal cyst measures 2.2x1.4x1.6 cm * Will need follow up U/S in 6 months 8). Respiratory Acidosis * Patient was extubated on 05/26/17 and placed on BiPap and Bicarb Drip * Patient no longer on BiPap 9). DVT and GI prophylaxis * Heparin 5000sc Q8 * Dilaudid 0.5 mg IV Q4H PRN Severe Pain * Protonix 40 mg IV Q12H * PT * Palliative care: patient is DNR/DNI as of 05/29/17. Polst form completed. * Diet: FLD started on 05/30/17 Romero Mckoy ([phone]) Renetta Prabhakar ([phone]) as POA/Health Care Proxy <Mamta Kirkland V - Last Filed: 05/30/17 15:07> Objective - Vital Signs/Intake and Output Vital Signs (last 24 hours): Temp Pulse Resp BP Pulse Ox 97.6 F 100 H 21 159/85 H 98 05/30/17 12:00 05/30/17 12:00 05/30/17 12:00 05/30/17 12:00 05/30/17 12:00 Intake and Output: 05/30/17 05/30/17 06:59 18:59 Intake Total 700 Output Total 770 Balance -70 - Medications Medications: Current Medications Albuterol/Ipratropium (Duoneb 3 Mg/0.5 Mg (3 Ml) Ud) 3 ml INH RQ6 PRN PRN Reason: Shortness of Breath Last Admin: 05/29/17 13:32 Dose: 3 ml Heparin Sodium (Porcine) (Heparin) 5,000 units SC Q8 [facility] Last Admin: 05/30/17 06:00 Dose: 5,000 units Hydromorphone HCl (Dilaudid) 0.5 mg IVP Q4H PRN PRN Reason: Pain, moderate (4-7) Last Admin: 05/30/17 11:56 Dose: 0.5 mg Dextrose/Sodium Chloride (Dextrose 5%/0.9% Ns 1000 Ml) 1,000 mls @ 50 mls/hr IV .Q20H [facility] Last Admin: 05/29/17 18:24 Dose: 50 mls/hr Metronidazole (Flagyl) 500 mg in 100 mls @ 100 mls/hr IVPB Q8H [facility] Last Admin: 05/30/17 11:59 Dose: 100 mls/hr Meropenem 1 gm/ Sodium (Chloride) 100 mls @ 100 mls/hr IVPB Q12H [facility] Last Admin: 05/30/17 10:11 Dose: 100 mls/hr Insulin Aspart (Novolog) 0 unit SC Q6H [facility] PRN Reason: Protocol Last Admin: 05/30/17 12:02 Dose: 2 unit Pantoprazole Sodium (Protonix Inj) 40 mg IVP DAILY [facility] Last Admin: 05/30/17 09:21 Dose: 40 mg - Labs Labs: 05/30/17 07:02 05/30/17 07:04 PT 14.5 SECONDS (9.7-12.2) H 05/25/17 07:51 INR 1.3 05/25/17 07:51 APTT 31 SECONDS (21-34) 05/25/17 07:51 Attending/Attestation - Attestation I have personally seen and examined this patient.: Yes I have fully participated in the care of the patient.: Yes I have reviewed all pertinent clinical information, including history, physical exam and plan: Yes Notes (Text): Patient seen, examined, and case discussed with medical practitioners. Patient seen this morning in the intensive care unit awaiting bed for floor. Patient's nasogastric tube was discontinued by surgery yesterday and per surgery recommended to keep Naqvi. Patient seen in bed as well as upper anterior in the afternoon. Patient is tolerating pain well considering. White count has resolved and bandemia has resolved. Patient does have an elevated pro-calcitonin signifying some type of bacterial cause. Patient was started on ciprofloxacin as of yesterday we'll continue to monitor. Patient does have repeat blood cultures ordered as of yesterday we'll monitor. There is no available specimen for oncologists to start chemotherapy. We will need interventional radiologists assistance with a liver biopsy of liver lesion to determine pathology to start chemotherapy as outpatient. I spoke with Alexandria Prabhakar (POA; niece; Aki ([phone]) in regards to need for liver biopsy, given there is no sample to determine pathology. Order is placed of IR biopsy for liver to determine pathology. Assessment and Plan: 1). Sigmoid colon mass Liver lesion Abdominal Pain * GI consult Dr Foster-->help appreciated * Dr Bright oncology consult-->help appreciated * Surgery consult Dr Richard--->help appreciated * Palliative Care on board * CT-Abd/Pelvis on admission showed 8.6 cm sigmoid mass with extensive hepatic metastasis. Bilateral renal cysts with large right upper pole renal cyst. Small bilateral pleural effusion and small pericardial effusion. Small hiatal hernia. Possible small diverticulum of the herniated stomach * CEA elevated @ 11.6. (Normal = 0-3.0) * Colonscopy (05/22/17): Non-bleeding external and internal hemorrhoids. 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 Biopsied * Superifical fragments of colonic epithelium with high grade dysplasia/ intraepithelial carcinoma with associated necrosis, invasion cannot be evaluated with superficial biopsy. * Barium Enema (05/23/2017): Contrast flowed freely through the rectum to the level of the distal sigmoid colon. At the level of the distal sigmoid colon, contrast slowly traversed through a very thin and irregular channel to the level of the mid sigmoid at the site of the known sigmoid carcinoma. Contrast did not flow freely past this level. Exam was subsequently terminated. These findings were concerning for a near complete obstruction of the bowel lumen from the adjacent obstructing tumor. * Operative note (05/25/17): Laparotomy, decompression of colon, extensive irrigation with 10L of fluid pus the Ceclor, attempted resection, same was aborted due to the fact the tumors have invaded the posterior wall of the somach , and diverting total end colostomy, liver biopsy * Pathology: skin with fibrosis, Liver biospy: fragments of necrotic non- viable tissue, Trimmings: portion of colonic wall with edema, muscular layer hypertrophy * Patient was extubated on 05/26/17. * Abx: Ciprofloaxcin 200mg IV Q12H (active since 05/28-) and Flagyl 500mg IVPB Q 6H (active since 05/27-) Switched to Meropenem 1 gram IVQ12H (active since 05/20/17) * Dilaudid 0.5mg IVP Q4H PRN moderate pain 2. Sepsis * Infectious Disease: Dr. Maravilla on the case-->help appreciated * leukocytosis, bandemia, tachycardia * Procalcitonin is elevated * Abx: Ciprofloaxcin 200mg IV Q12H (active since 05/28-) and Flagyl 500mg IVPB Q 6H (active since 05/27-) Switched to Meropenem 1 gram IVQ12H (active since 05/20/17) * 05/29/17: Blood cultures pending * 05/30/17: Body Fluid Culture: pending * 05/28/17: Blood cultures: no growth after 24 hours X2 * 05/28/17: urine: no growth * 05/25/17: peritoneal fluid: gram stain final * 05/25/17: MRSA not detected 4).DM 2 * Aspart ISS Q6H Low Dose * Accuchecks Q6H * Follow-up with surgery; patient is started on clear liquid diet by general surgery 4).Hypertension * HOLDING Labetolol 100mg Q12H, Enalapril 15 mg Daily * Will restart Cardizem 120mg PO daily today 5).Anemia * S/P Transfusion upon admission * H/H Stable * Cont. to monitor 6).Pericardial effusion/cardiomegaly * Cardiology Consulted (Dr. Portillo) - help appreciated * The overall left ventricular function is normal. The effusion is small. There is no evidence of tamponade. medical therapy. no contraindication to the planned colonoscopy * ECHO (05/20/17): Diastolic Dysfunction Grade I-abnormal relaxation pattern, Trace TR and MR 7). Bilateral Renal Cysts * U/S Renal 05/26/17: Right Upper Pole renal cyst measures approximately 10.4x8.3x9.2 cm. Left upper pole renal cyst measures 2.2x1.4x1.6 cm * Will need follow up U/S in 6 months 8). DVT and GI prophylaxis * Heparin 5000 units subq 8H * Dialudid 0.5 mg IV Q4H PRN Severe Pain * Protonix 40 mg IV Q12H * Palliative care on board * PROXY DIRECTIVE which designates renetta Prabhakar ([phone]) as POA/Health Care Proxy and patient is DNR/DNI confirmed with POA Disposition: Patient is awaiting for IR liver biopsy to determine pathology for heme-onco to start outpatient chemotherapy Patient is on IV antibiotics. Surgery has ordered for CT Abdomen/Pelvis IV only to r/o ureter injury. f/u Body fluid culture (05/30) Will repeat procalcitonin tomorrow.
[2017-05-30 07:07] LABS: BASO % 0.2 % (0.0-2.0); EOS % 0.2 % (0.0-4.0); HEMOGLOBIN 9.9 g/dL (11.0-16.0); LYMPH # 0.9 K/uL (1.0-4.3); LYMPH % 9.5 % (20.0-40.0); MEAN CELL VOLUME 85.9 fL (81.0-99.0); MEAN CORPUSCULAR HEMOGLOBIN 28.3 pg (27.0-31.0); MEAN PLATELET VOLUME 9.1 fL (7.2-11.7); MONO # 0.9 K/uL (0.0-0.8); NEUT # 7.2 K/uL (1.8-7.0); NEUT % 80.1 % (50.0-75.0); PLATELET COUNT 206 K/uL (130-400); RBC 3.49 Mil/uL (3.80-5.20); RED CELL DISTRIBUTION WIDTH 18.9 % (11.5-14.5)
[2017-05-30 07:39] LABS: ALB/GLOB RATIO 0.9 (1.0-2.1); ALBUMIN 2.4 g/dL (3.5-5.0); ALT/SGPT 18 U/L (9-52); AST/SGOT 21 U/L (14-36); BLOOD UREA NITROGEN 13 mg/dL (7-17); CALCIUM 7.4 mg/dl (8.6-10.4); GFR AFRICAN-AMERICAN > 60; GFR NON-AFRICAN AMERICAN > 60; MAGNESIUM 1.6 mg/dL (1.6-2.3)
[2017-05-30 08:43] LABS: ANISOCYTOSIS MODERATE; LYMPHOCYTE 7 % (20-40); MONOCYTE 3 % (0-10); NEUTROPHIL 90 % (50-75); PLATELET ESTIMATE NORMAL (NORMAL); TOTAL CELLS COUNTED 100
[2017-05-30] MEDS ORDERED: Potassium & Sodium Phosphate PO ONE (09:00)
--- NOTE | 2017-05-30 09:45 | CP.PCM.PN ---
Subjective - Date & Time of Evaluation Date of Evaluation: 05/30/17 Time of Evaluation: 09:42 - Subjective Subjective: Surgery Pt s&e. NAEON. Denies F/C?N/V/D/CP/SOB. OOB. Tolerating CLD. NGT DCed yesterday. Objective - Vital Signs/Intake and Output Vital Signs (last 24 hours): Temp Pulse Resp BP Pulse Ox 98.4 F 103 H 19 134/79 99 05/30/17 08:00 05/30/17 08:00 05/30/17 08:00 05/30/17 08:00 05/30/17 08:00 Intake and Output: 05/30/17 05/30/17 06:59 18:59 Intake Total 700 Output Total 770 Balance -70 - Medications Medications: Current Medications Albuterol/Ipratropium (Duoneb 3 Mg/0.5 Mg (3 Ml) Ud) 3 ml INH RQ6 PRN PRN Reason: Shortness of Breath Last Admin: 05/29/17 13:32 Dose: 3 ml Heparin Sodium (Porcine) (Heparin) 5,000 units SC Q8 [facility] Last Admin: 05/30/17 06:00 Dose: 5,000 units Hydromorphone HCl (Dilaudid) 0.5 mg IVP Q4H PRN PRN Reason: Pain, moderate (4-7) Last Admin: 05/30/17 01:23 Dose: 0.5 mg Dextrose/Sodium Chloride (Dextrose 5%/0.9% Ns 1000 Ml) 1,000 mls @ 50 mls/hr IV .Q20H [facility] Last Admin: 05/29/17 18:24 Dose: 50 mls/hr Metronidazole (Flagyl) 500 mg in 100 mls @ 100 mls/hr IVPB Q8H [facility] Meropenem 1 gm/ Sodium (Chloride) 100 mls @ 100 mls/hr IVPB Q12H [facility] Insulin Aspart (Novolog) 0 unit SC Q6H [facility] PRN Reason: Protocol Last Admin: 05/30/17 00:10 Dose: Not Given Pantoprazole Sodium (Protonix Inj) 40 mg IVP DAILY [facility] Last Admin: 05/30/17 09:21 Dose: 40 mg - Labs Labs: 05/30/17 07:02 05/30/17 07:04 PT 14.5 SECONDS (9.7-12.2) H 05/25/17 07:51 INR 1.3 05/25/17 07:51 APTT 31 SECONDS (21-34) 05/25/17 07:51 - Constitutional Appears: Non-toxic - Head Exam Head Exam: ATRAUMATIC, NORMAL INSPECTION, NORMOCEPHALIC - Eye Exam Eye Exam: EOMI, Normal appearance, PERRL Pupil Exam: NORMAL ACCOMODATION, PERRL - ENT Exam ENT Exam: Mucous Membranes Moist, Normal Exam - Neck Exam Neck Exam: Full ROM, Normal Inspection. absent: Lymphadenopathy - Respiratory Exam Respiratory Exam: Clear to Ausculation Bilateral, NORMAL BREATHING PATTERN - Cardiovascular Exam Cardiovascular Exam: REGULAR RHYTHM, +S1, +S2. absent: Murmur - GI/Abdominal Exam GI & Abdominal Exam: Soft, Tenderness, Normal Bowel Sounds. absent: Distended Additional comments: Drains in place. Serous fluids. Stoma in place: dusky. dark color. MInimal output. - Exam Exam: NORMAL INSPECTION Additional comments: Naqvi in place - Back Exam Back Exam: NORMAL INSPECTION - Neurological Exam Neurological Exam: Alert, Awake, CN II-XII Intact, Oriented x3 - Psychiatric Exam Psychiatric exam: Normal Affect, Normal Mood - Skin Skin Exam: Dry, Intact, Normal Color, Warm Assessment and Plan - Assessment and Plan (Free Text) Assessment: 86 F s/p exploratory laparotomy with diverting colostomy and liver biopsy POD#5 Naqvi 1L , Drains 700/24hr, Stoma : dusky, minimal output. Plan: - Dressing changes PRN -Advance diet to FLD - Analgesics/Anti-emetics PRN - OOB/Ambulation/Incentive spirometry/PT - Keep naqvi - Will D/W Dr. Richard
[2017-05-30] MEDS: Meropenem 1 GM in Sodium Chloride 0.9% 100 ML IVPB SCH ×2 (10:11→21:55)
[2017-05-30 15:34] LABS: SQUAMOUS EPITHIAL 1 /hpf (0-5); URINE BACTERIA OCC (<OCC); URINE BILIRUBIN NEGATIVE (NEGATIVE); URINE BLOOD 1+ (NEGATIVE); URINE COLOR Amber (YELLOW); URINE GLUCOSE (UA) 1+ mg/dL (Normal); URINE LEUKOCYTE ESTERASE 1+ Leu/uL (Negative); URINE NITRATE NEGATIVE (NEGATIVE); URINE PROTEIN 1+ mg/dL (NEGATIVE); URINE UROBILINOGEN NORMAL mg/dL (0.2-1.0)
[2017-05-30] MEDS ORDERED: Iodixanol 320 MG/ML 100 ML BOTTLE IV ONE (16:56)
--- NOTE | 2017-05-30 17:21 | CP.PCM.PN ---
Subjective - Date & Time of Evaluation Date of Evaluation: 05/29/17 Time of Evaluation: 12:00 - Subjective Subjective: Feeling better, some pain. Objective - Vital Signs/Intake and Output Vital Signs (last 24 hours): Temp Pulse Resp BP Pulse Ox 98.2 F 103 H 19 159/70 H 97 05/30/17 16:00 05/30/17 16:00 05/30/17 16:00 05/30/17 16:00 05/30/17 16:00 Intake and Output: 05/30/17 05/30/17 06:59 18:59 Intake Total 700 500 Output Total 770 600 Balance -70 -100 - Medications Medications: Current Medications Albuterol/Ipratropium (Duoneb 3 Mg/0.5 Mg (3 Ml) Ud) 3 ml INH RQ6 PRN PRN Reason: Shortness of Breath Last Admin: 05/29/17 13:32 Dose: 3 ml Heparin Sodium (Porcine) (Heparin) 5,000 units SC Q8 [facility] Last Admin: 05/30/17 15:00 Dose: 5,000 units Hydromorphone HCl (Dilaudid) 0.5 mg IVP Q4H PRN PRN Reason: Pain, moderate (4-7) Last Admin: 05/30/17 11:56 Dose: 0.5 mg Dextrose/Sodium Chloride (Dextrose 5%/0.9% Ns 1000 Ml) 1,000 mls @ 50 mls/hr IV .Q20H [facility] Last Admin: 05/29/17 18:24 Dose: 50 mls/hr Metronidazole (Flagyl) 500 mg in 100 mls @ 100 mls/hr IVPB Q8H [facility] Last Admin: 05/30/17 11:59 Dose: 100 mls/hr Meropenem 1 gm/ Sodium (Chloride) 100 mls @ 100 mls/hr IVPB Q12H [facility] Last Admin: 05/30/17 10:11 Dose: 100 mls/hr Insulin Aspart (Novolog) 0 unit SC Q6H [facility] PRN Reason: Protocol Last Admin: 05/30/17 12:02 Dose: 2 unit Pantoprazole Sodium (Protonix Inj) 40 mg IVP DAILY [facility] Last Admin: 05/30/17 09:21 Dose: 40 mg - Labs Labs: 05/30/17 07:02 05/30/17 07:04 PT 14.5 SECONDS (9.7-12.2) H 05/25/17 07:51 INR 1.3 05/25/17 07:51 APTT 31 SECONDS (21-34) 05/25/17 07:51 - Head Exam Head Exam: ATRAUMATIC - Eye Exam Eye Exam: Normal appearance - ENT Exam ENT Exam: Mucous Membranes Dry - Respiratory Exam Respiratory Exam: NORMAL BREATHING PATTERN - Cardiovascular Exam Cardiovascular Exam: +S1, +S2 - GI/Abdominal Exam GI & Abdominal Exam: Normal Bowel Sounds Assessment and Plan (1) Colonic mass Assessment & Plan: 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
--- NOTE | 2017-05-30 17:22 | CP.PCM.PN ---
Subjective - Date & Time of Evaluation Date of Evaluation: 05/30/17 Time of Evaluation: 15:00 - Subjective Subjective: Feels sore from being in bed Objective - Vital Signs/Intake and Output Vital Signs (last 24 hours): Temp Pulse Resp BP Pulse Ox 98.2 F 103 H 19 159/70 H 97 05/30/17 16:00 05/30/17 16:00 05/30/17 16:00 05/30/17 16:00 05/30/17 16:00 Intake and Output: 05/30/17 05/30/17 06:59 18:59 Intake Total 700 500 Output Total 770 600 Balance -70 -100 - Medications Medications: Current Medications Albuterol/Ipratropium (Duoneb 3 Mg/0.5 Mg (3 Ml) Ud) 3 ml INH RQ6 PRN PRN Reason: Shortness of Breath Last Admin: 05/29/17 13:32 Dose: 3 ml Heparin Sodium (Porcine) (Heparin) 5,000 units SC Q8 [facility] Last Admin: 05/30/17 15:00 Dose: 5,000 units Hydromorphone HCl (Dilaudid) 0.5 mg IVP Q4H PRN PRN Reason: Pain, moderate (4-7) Last Admin: 05/30/17 11:56 Dose: 0.5 mg Dextrose/Sodium Chloride (Dextrose 5%/0.9% Ns 1000 Ml) 1,000 mls @ 50 mls/hr IV .Q20H [facility] Last Admin: 05/29/17 18:24 Dose: 50 mls/hr Metronidazole (Flagyl) 500 mg in 100 mls @ 100 mls/hr IVPB Q8H [facility] Last Admin: 05/30/17 11:59 Dose: 100 mls/hr Meropenem 1 gm/ Sodium (Chloride) 100 mls @ 100 mls/hr IVPB Q12H [facility] Last Admin: 05/30/17 10:11 Dose: 100 mls/hr Insulin Aspart (Novolog) 0 unit SC Q6H [facility] PRN Reason: Protocol Last Admin: 05/30/17 12:02 Dose: 2 unit Pantoprazole Sodium (Protonix Inj) 40 mg IVP DAILY [facility] Last Admin: 05/30/17 09:21 Dose: 40 mg - Labs Labs: 05/30/17 07:02 05/30/17 07:04 PT 14.5 SECONDS (9.7-12.2) H 05/25/17 07:51 INR 1.3 05/25/17 07:51 APTT 31 SECONDS (21-34) 05/25/17 07:51 - Head Exam Head Exam: ATRAUMATIC - Eye Exam Eye Exam: Normal appearance - ENT Exam ENT Exam: Mucous Membranes Dry - Respiratory Exam Respiratory Exam: NORMAL BREATHING PATTERN - Cardiovascular Exam Cardiovascular Exam: +S1, +S2 - GI/Abdominal Exam GI & Abdominal Exam: Normal Bowel Sounds Assessment and Plan (1) Colonic mass Assessment & Plan: negative for invasive malignancy Status: Acute (2) Liver lesion Assessment & Plan: negative for malignancy for IR percutaneous biopsy Status: Acute (3) Anemia Assessment & Plan: chronic disease Status: Acute (4) Coagulopathy Status: Acute
--- NOTE | 2017-05-30 18:08 | CT ---
PROCEDURE: CT Abdomen and Pelvis with and without intravenous contrast HISTORY: r/o ureter injury. Visualize ureter COMPARISON: 05/19/2017 CT abdomen and pelvis. 05/26/2017 renal ultrasound TECHNIQUE: Axial images of the abdomen were obtained in the pre contrast, portal venous and delayed phases of enhancement. Coronal and sagittal reformats were generated. Contrast dose: 100 cc Visipaque 320 Radiation dose: Total exam DLP = 1624.54 mGy-cm. This CT exam was performed using one or more of the following dose reduction techniques: Automated exposure control, adjustment of the mA and/or kV according to patient size, and/or use of iterative reconstruction technique. FINDINGS: LOWER THORAX: Incompletely visualize cardiomegaly. Moderate pericardial effusion. Progressive lower lobe infiltrates and pleural effusions. LIVER: Dominant mass in the left hepatic lobe partially necrotic 9 x 89.8 cm. Additional metastases identified in the right hepatic lobe. The liver is enlarged. GALLBLADDER AND BILE DUCTS: Gallstones identified on the prior study are not apparent on the current examination, this is likely technical. PANCREAS: Unremarkable. No gross lesion or ductal dilatation. SPLEEN: Unremarkable. ADRENALS: Unremarkable. No mass. KIDNEYS AND URETERS: No significant interval change. Dominant cyst in the right kidney. Smaller cyst on the left kidney. Unremarkable contrast pole collecting systems as visualized. VASCULATURE: Unremarkable. No aortic aneurysm. BOWEL: Diverting ostomy left lower quadrant. Surgical resection of the colon. Surgical drains identified in the right pearl abdomen and pelvis. APPENDIX: A normal appendix is not visualized. PERITONEUM: Unremarkable. No free fluid. No free air. LYMPH NODES: Unremarkable. No enlarged lymph nodes. BLADDER: Bailey catheter decompresses the urinary bladder. The ureters are visualized and there is no evidence of ureteral transsection of or injury. REPRODUCTIVE: Unremarkable. BONES: No acute fracture. OTHER FINDINGS: Diffuse anasarca a new finding. IMPRESSION: 1. Postoperative findings as described above. 2. No evidence of ureteral injury. 3. Bulky tumor in the pelvis and hepatic metastatic disease unchanged. 4. Increasing pleural effusions in consolidative changes at the lung base. Stable pericardial effusion. 5. Severe postoperative anasarca.
[2017-05-31] MEDS: (Novolog) Insulin Aspart, Recombinant 100 u/ml 10 ml vial SC SCH ×4 (00:16→18:21)
[2017-05-31] MEDS: metroNIDAZOLE IV 500 mg/100 ml 500 MG/100 ML BAG IVPB SCH ×3 (05:33→20:30)
[2017-05-31] MEDS: Dextrose 5%/0.9% NS 1,000 ML IV SCH (05:43)
[2017-05-31 06:41] LABS: BASO % 0.1 % (0.0-2.0); EOS % 0.1 % (0.0-4.0); HEMOGLOBIN 9.9 g/dL (11.0-16.0); LYMPH % 11.5 % (20.0-40.0); MEAN CELL VOLUME 85.5 fL (81.0-99.0); MEAN CORPUSCULAR HEMOGLOBIN 28.4 pg (27.0-31.0); MEAN CORPUSCULAR HGB CONC 33.2 g/dL (33.0-37.0); MEAN PLATELET VOLUME 8.7 fL (7.2-11.7); MONO # 0.8 K/uL (0.0-0.8); MONO % 9.2 % (0.0-10.0); NEUT # 7.1 K/uL (1.8-7.0); NEUT % 79.1 % (50.0-75.0); RBC 3.47 Mil/uL (3.80-5.20); RED CELL DISTRIBUTION WIDTH 18.4 % (11.5-14.5)
--- NOTE | 2017-05-31 07:08 | CP.PCM.PN ---
<Angela Barraza - Last Filed: 05/31/17 12:14> Subjective - Date & Time of Evaluation Date of Evaluation: 05/31/17 Time of Evaluation: 07:08 - Subjective Subjective: Medicine progress note for Dr. Kirkland's service Patient was seen and examined at bedside in no acute distress. Patient appears more lethargic today. Patient reports feeling tired and wants to get out of bed , but otherwise has no other complaints. Patient states she wants to get out of bed and do her exercises. She also reports she has not been eating much, decreased appetite. Patient denies chest pain, headaches, shortness of breath, nausea, vomiting, fevers, and dizziness. Objective - Vital Signs/Intake and Output Vital Signs (last 24 hours): Temp Pulse Resp BP Pulse Ox 98 F 108 H 20 172/95 H 98 05/31/17 04:15 05/31/17 04:15 05/31/17 04:15 05/31/17 04:15 05/31/17 04:15 Intake and Output: 05/31/17 05/31/17 06:59 18:59 Intake Total 1327 Output Total 1870 Balance -543 - Medications Medications: Current Medications Albuterol/Ipratropium (Duoneb 3 Mg/0.5 Mg (3 Ml) Ud) 3 ml INH RQ6 PRN PRN Reason: Shortness of Breath Last Admin: 05/29/17 13:32 Dose: 3 ml Diltiazem HCl (Cardizem Cd) 120 mg PO DAILY REPLACED BY [facility] Heparin Sodium (Porcine) (Heparin) 5,000 units SC Q8 REPLACED BY [facility] Last Admin: 05/31/17 05:35 Dose: Not Given Hydromorphone HCl (Dilaudid) 0.5 mg IVP Q4H PRN PRN Reason: Pain, moderate (4-7) Last Admin: 05/31/17 05:35 Dose: 0.5 mg Dextrose/Sodium Chloride (Dextrose 5%/0.9% Ns 1000 Ml) 1,000 mls @ 50 mls/hr IV .Q20H REPLACED BY [facility] Last Admin: 05/31/17 05:43 Dose: 50 mls/hr Metronidazole (Flagyl) 500 mg in 100 mls @ 100 mls/hr IVPB Q8H REPLACED BY [facility] Last Admin: 05/31/17 05:33 Dose: 100 mls/hr Meropenem 1 gm/ Sodium (Chloride) 100 mls @ 100 mls/hr IVPB Q12H REPLACED BY [facility] Last Admin: 05/30/17 21:55 Dose: 100 mls/hr Insulin Aspart (Novolog) 0 unit SC Q6H REPLACED BY [facility] PRN Reason: Protocol Last Admin: 05/31/17 00:16 Dose: Not Given Pantoprazole Sodium (Protonix Inj) 40 mg IVP DAILY REPLACED BY [facility] Last Admin: 05/30/17 09:21 Dose: 40 mg - Labs Labs: 05/31/17 06:20 05/30/17 07:04 PT 14.5 SECONDS (9.7-12.2) H 05/25/17 07:51 INR 1.3 05/25/17 07:51 APTT 31 SECONDS (21-34) 05/25/17 07:51 - Additional Findings Additional findings: - Constitutional Appears: Non-toxic, No Acute Distress - Head Exam Head Exam: ATRAUMATIC, NORMAL INSPECTION - Eye Exam Eye Exam: EOMI - ENT Exam ENT Exam: Mucous Membranes Moist - Respiratory Exam Respiratory Exam: Clear to Ausculation Bilateral, NORMAL BREATHING PATTERN. absent: Rhonchi, Wheezes, Respiratory Distress - Cardiovascular Exam Cardiovascular Exam: REGULAR RHYTHM, +S1, +S2 - GI/Abdominal Exam GI & Abdominal Exam: Soft, Tenderness (s/p lapartomy, colostomy- with deep palpation), Diminished Bowel Sounds, Normal Bowel Sounds. absent: Distended, Firm Additional comments: Dressings dry,intact, clean; left colostomy bag in place- formed stool present. - Extremities Exam Extremities Exam: Pedal Edema (pitting edema b/l). absent: Calf Tenderness, Tenderness - Neurological Exam Neurological Exam: Alert, Awake, Oriented x3 - Psychiatric Exam Psychiatric exam: Normal Affect, Normal Mood - Skin Skin Exam: Dry, Normal Color, Warm Assessment and Plan - Assessment and Plan (Free Text) Plan: 1). Sigmoid colon mass/Liver lesion likely mets/Weight loss and abdominal pain * CT-Abd/Pelvis on admission showed 8.6 cm sigmoid mass with extensive hepatic metastasis. Bilateral renal cysts with large right upper pole renal cyst. Small bilateral pleural effusion and small pericardial effusion. Small hiatal hernia. Possible small diverticulum of the herniated stomach * Repeat Abd/Pel CT (05/30): no ureteral injury; bulk tumor in pelvis and hepatic mets disease; increasing pleural effusion in consolidative changes at the lung base; stable pericardial effusion; severe post-op anasarca. * CEA elevated @ 11.6. (Normal = 0-3.0) * Colonscopy (05/22/17): Non-bleeding external and internal hemorrhoids. 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 At the level of the distal sigmoid colon, contrast slowly traversed through a very thin and irregular channel to the level of the mid sigmoid at the site of the known sigmoid carcinoma. Contrast did not flow freely past this level. Exam was subsequently terminated. These findings were concerning for a near complete obstruction of the bowel lumen from the adjacent obstructing tumor. Consults * GI consult Dr Foster ,appreciated * recommends peripheral hyperalimentation * Dr Bright oncology consult - Recs appreciated * suggests consulting IR for FNA biopsy of liver lesions to obtain diagnosis * Surgery consult Dr Richard-appreciated * 05/25/17: Patient underwent laparotomy with diverting colostomy and liver biopsy. She was found to have the colonic mass invading the bladder and therefore was not entirely resectable * Liver Biopsy: necrotic tissue * NGT removed on 05/29/17 * Keep naqvi * IR consulted for FNA biopsy of liver lesions for cancer diagnosis; help appreciated * Scheduled for biopsy today, 05/31; patient is NPO * F/U biopsy results Medications: * Dilaudid 0.5mg IV Q4 PRN for pain control 2). Sepsis * leukocytosis, bandemia * trending down * Continue Flagyl and Cipro IV * procalcitonin 4.15 * Repeat procalcitonin: f/u results * Blood cx (05/28): no growth; urine cx: no growth * Peritoneal fluid stain: negative * Repeat blood cultures (05/29/17): negative * UA: 1+ protein, 1+ blood, 1+ LE, WBC29, RBC32, Occ bacteria * ID consulted, help appreciated * Meropenem 1gm IV Q12 (started 05/30/17) * Flagyl 500mg IV Q8h (started 05/30/17) 3). DM 2 * Aspart ISS Q6H Low Dose * Accuchecks 4).Hypertension * HOLDING Labetolol 100mg Q12H, Enalapril 15 mg Daily, and Cardizem PT068cg Daily 5). Anemia * F/U: Iron Sat, Iron/TIBC, Ferritin, and Reticulocyte Count * S/P Transfusion upon admission * H/H Stable * Continue to monitor 6). Pericardial effusion/cardiomegaly * Cardiology Consulted (Dr. Portillo) - help appreciated * as per Dr. Portillo, continue medical therapy; effusion is small; LV function is normal * ECHO (05/20/17): Diastolic Dysfunction Grade I-abnormal relaxation pattern, Trace TR and MR 7). Bilateral Renal Cysts * U/S Renal 05/26/17: Right Upper Pole renal cyst measures approximately 10.4x8.3x9.2 cm. Left upper pole renal cyst measures 2.2x1.4x1.6 cm * Will need follow up U/S in 6 months 8). Respiratory Acidosis * Patient was extubated on 05/26/17 and placed on BiPap and Bicarb Drip * Patient no longer on BiPap 9). DVT and GI prophylaxis * Heparin 5000sc Q8 * Dilaudid 0.5 mg IV Q4H PRN Severe Pain * Protonix 40 mg IV Q12H * PT/OT * Incentive spirometry * Palliative care: patient is DNR/DNI as of 05/29/17. Polst form completed. * Diet: FLD started on 05/30/17 Romero Vogelepi ([phone]) Renetta Prabhakar ([phone]) as POA/Health Care Proxy <Mamta Kirkland V - Last Filed: 06/16/17 23:22> Objective - Vital Signs/Intake and Output Vital Signs (last 24 hours): Temp Pulse Resp BP Pulse Ox 98.3 F 72 20 134/72 95 06/16/17 15:00 06/16/17 15:00 06/16/17 15:00 06/16/17 17:58 06/16/17 15:00 Intake and Output: 06/16/17 06/17/17 18:59 06:59 Intake Total 160 Output Total 20 Balance 140 - Labs Labs: 06/16/17 07:12 06/16/17 07:12 PT 15.2 SECONDS (9.7-12.2) H 06/10/17 07:39 INR 1.3 06/10/17 07:39 APTT 33 SECONDS (21-34) 06/10/17 07:39 Attending/Attestation - Attestation I have personally seen and examined this patient.: Yes I have fully participated in the care of the patient.: Yes I have reviewed all pertinent clinical information, including history, physical exam and plan: Yes Notes (Text): This is late computer entry for 05/31/17. Patient seen, examined, and case discussed with medical office technology instructor. Patient is NPO for IR biopsy for liver to determine pathology of suspected cancer. There is no available specimen for oncologists to start chemotherapy. We will need interventional radiologists assistance with a liver biopsy of liver lesion to determine pathology to start chemotherapy as outpatient. Patient is currently on IV antibiotics in light of suspected sepsis in light of elevated procalcitonin CT scan does not show any evidence of ureteral injury. Assessment and Plan: 1). Sigmoid colon mass Liver lesion Abdominal Pain * GI consult Dr Foster-->help appreciated * Dr Bright oncology consult-->help appreciated * Recommended for IR for FNA biopsy of liver lesion to obtain diagnoses * Surgery consult Dr Richard--->help appreciated * Palliative Care on board * IR consulted for FNA biopsy of liver lesions for cancer diagnosis since no sufficient sample to determine pathology from prior procedures * CT-Abd/Pelvis on admission showed 8.6 cm sigmoid mass with extensive hepatic metastasis. Bilateral renal cysts with large right upper pole renal cyst. Small bilateral pleural effusion and small pericardial effusion. Small hiatal hernia. Possible small diverticulum of the herniated stomach * CEA elevated @ 11.6. (Normal = 0-3.0) * Colonscopy (05/22/17): Non-bleeding external and internal hemorrhoids. 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 Biopsied * Superifical fragments of colonic epithelium with high grade dysplasia/ intraepithelial carcinoma with associated necrosis, invasion cannot be evaluated with superficial biopsy. * Barium Enema (05/23/2017): Contrast flowed freely through the rectum to the level of the distal sigmoid colon. At the level of the distal sigmoid colon, contrast slowly traversed through a very thin and irregular channel to the level of the mid sigmoid at the site of the known sigmoid carcinoma. Contrast did not flow freely past this level. Exam was subsequently terminated. These findings were concerning for a near complete obstruction of the bowel lumen from the adjacent obstructing tumor. * Operative note (05/25/17): Laparotomy, decompression of colon, extensive irrigation with 10L of fluid pus the Ceclor, attempted resection, same was aborted due to the fact the tumors have invaded the posterior wall of the somach , and diverting total end colostomy, liver biopsy * Pathology: skin with fibrosis, Liver biospy: fragments of necrotic non- viable tissue, Trimmings: portion of colonic wall with edema, muscular layer hypertrophy * Patient was extubated on 05/26/17. * CT Abdomen/Pelvis (05/30/17): postoperative findings as described above. No evidence of ureteral injury. Bulky tumor in the pelvis and hepatic metastatic disease unchanged. Increasing pleural effusions in consolidate changes at the lung base. Stable pericardial effusion. Severe postoperative anasarca. * Abx: Ciprofloaxcin 200mg IV Q12H (active since 05/28-) and Flagyl 500mg IVPB Q 6H (active since 05/27-) Switched to Meropenem 1 gram IVQ12H (active since 05/30/17) * Dilaudid 0.5mg IVP Q4H PRN moderate pain 2. Sepsis * Infectious Disease: Dr. Maravilla on the case-->help appreciated * leukocytosis, bandemia, tachycardia * Procalcitonin is elevated: 4.15 * Pending repeat procalcitonin * Abx: Ciprofloaxcin 200mg IV Q12H (active since 05/28-) and Flagyl 500mg IVPB Q 6H (active since 05/27-) Switched to Meropenem 1 gram IVQ12H (active since 05/30/17) * 05/29/17: Blood cultures pending * 05/30/17: Body Fluid Culture: pending * 05/28/17: Blood cultures: no growth * 05/28/17: urine: no growth * 05/25/17: peritoneal fluid: gram stain final * 05/25/17: MRSA not detected 4).DM 2 * Aspart ISS Q6H Low Dose * Accuchecks Q6H * Follow-up with surgery; patient is started on clear liquid diet by general surgery 4).Hypertension * HOLDING Labetolol 100mg Q12H, Enalapril 15 mg Daily * c/w Cardizem 120mg PO daily 5).Anemia * S/P Transfusion upon admission * H/H Stable * Cont. to monitor 6).Pericardial effusion/cardiomegaly * Cardiology Consulted (Dr. Portillo) - help appreciated * The overall left ventricular function is normal. The effusion is small. There is no evidence of tamponade. medical therapy. no contraindication to the planned colonoscopy * ECHO (05/20/17): Diastolic Dysfunction Grade I-abnormal relaxation pattern, Trace TR and MR 7). Bilateral Renal Cysts * U/S Renal 05/26/17: Right Upper Pole renal cyst measures approximately 10.4x8.3x9.2 cm. Left upper pole renal cyst measures 2.2x1.4x1.6 cm * Will need follow up U/S in 6 months 8). DVT and GI prophylaxis * held Heparin 5000 units subq 8H prior to FNA biospy of liver lesions * Dialudid 0.5 mg IV Q4H PRN Severe Pain * Protonix 40 mg IV Q12H * Palliative care on board * PROXY DIRECTIVE which designates renetta Prabhakar ([phone]) as POA/Health Care Proxy and patient is DNR/DNI confirmed with POA Disposition: Patient is on IV antibiotics. Patient scheduled and complete IR FNA biopsy of liver biopsy today.
[2017-05-31 07:34] LABS: ALB/GLOB RATIO 0.9 (1.0-2.1); ALBUMIN 2.3 g/dL (3.5-5.0); ALT/SGPT 21 U/L (9-52); AST/SGOT 18 U/L (14-36); BLOOD UREA NITROGEN 10 mg/dL (7-17); CALCIUM 7.4 mg/dl (8.6-10.4); GFR AFRICAN-AMERICAN > 60; GFR NON-AFRICAN AMERICAN > 60; MAGNESIUM 1.5 mg/dL (1.6-2.3)
[2017-05-31] MEDS: Meropenem 1 GM in Sodium Chloride 0.9% 100 ML IVPB SCH ×2 (09:00→21:18)
[2017-05-31] MEDS ORDERED: Potassium Chloride 20 mEq ER Tab PO SCH (09:30)
[2017-05-31] MEDS: diltiaZEM 120 mg/24 Hours CD Cap PO SCH (10:04)
[2017-05-31] MEDS ORDERED: Potassium Ch 20mEq in D5W 1,000 ML IV SCH (10:30)
[2017-05-31] MEDS ORDERED: Albuterol-Ipratrop 3 mg / 0.5 (3 ml) UD INH ONE (10:40)
[2017-05-31] MEDS ORDERED: Magnesium Sulfate 1 gm in D5W 1 GM/100 ML BAG IVPB SCH (10:45)
[2017-05-31] MEDS ORDERED: Absorbable Gelatin Sponge Size 12-7 ONE (11:45)
[2017-05-31] MEDS ORDERED: Midazolam 2 MG/2 ML VIAL ONE (11:49)
--- NOTE | 2017-05-31 11:55 | PCM.SURG1 ---
Surgeon's Initial Post Op Note - Surgeon's Notes Surgeon: Chris John MD Ambulance Assistant: NONE Type of Anesthesia: IV Sedation Pre-Operative Diagnosis: Liver mass Operative Findings: US showed large right and left liver masses Post-Operative Diagnosis: Liver mass Operation Performed: US guided core biopsy. Three 18 g core specimen removed from left liver mass. Specimen/Specimens Removed: 18 g core x 3 Estimated Blood Loss: EBL {In ML}: 0 Blood Products Given: N/A Drains Used: No Drains Post-Op Condition: Fair Date of Surgery/Procedure: 05/31/17 Time of Surgery/Procedure: 11:50
--- NOTE | 2017-05-31 12:58 | CP.PCM.CON ---
History of Present Illness - History of Present Illness History of Present Illness: dictated Past Patient History - Past Medical History & Family History Past Medical History?: Yes - Past Social History Smoking Status: Never Smoked - CARDIAC Hx Hypertension: Yes - ENDOCRINE/METABOLIC Hx Diabetes Mellitus Type 2: Yes - MUSCULOSKELETAL/RHEUMATOLOGICAL Hx Falls: No - PSYCHIATRIC Hx Substance Use: No - SURGICAL HISTORY Hx Surgeries: No - ANESTHESIA Hx Anesthesia: No Hx Anesthesia Reactions: No Meds Allergies/Adverse Reactions: Allergies Allergy/AdvReac Type Severity Reaction Status Date / Time aspirin AdvReac Verified 11/03/16 12:35 - Medications Medications: Current Medications Albuterol/Ipratropium (Duoneb 3 Mg/0.5 Mg (3 Ml) Ud) 3 ml INH RQ6 PRN PRN Reason: Shortness of Breath Last Admin: 05/29/17 13:32 Dose: 3 ml Diltiazem HCl (Cardizem Cd) 120 mg PO DAILY [facility] Last Admin: 05/31/17 10:04 Dose: 120 mg Heparin Sodium (Porcine) (Heparin) 5,000 units SC Q8 [facility] Last Admin: 05/31/17 05:35 Dose: Not Given Hydromorphone HCl (Dilaudid) 0.5 mg IVP Q4H PRN PRN Reason: Pain, moderate (4-7) Last Admin: 05/31/17 05:35 Dose: 0.5 mg Dextrose/Sodium Chloride (Dextrose 5%/0.9% Ns 1000 Ml) 1,000 mls @ 50 mls/hr IV .Q20H [facility] Last Admin: 05/31/17 05:43 Dose: 50 mls/hr Metronidazole (Flagyl) 500 mg in 100 mls @ 100 mls/hr IVPB Q8H [facility] Last Admin: 05/31/17 11:10 Dose: 100 mls/hr Meropenem 1 gm/ Sodium (Chloride) 100 mls @ 100 mls/hr IVPB Q12H [facility] Last Admin: 05/31/17 09:00 Dose: 100 mls/hr Potassium Chloride/Dextrose (Potassium Chl 20 Meq In D5w) 1,000 mls @ 100 mls/ hr IV .Q10H [facility] Stop: 05/31/17 20:29 Last Admin: 05/31/17 10:44 Dose: 100 mls/hr Insulin Aspart (Novolog) 0 unit SC Q6H [facility] PRN Reason: Protocol Last Admin: 05/31/17 07:12 Dose: 3 unit Pantoprazole Sodium (Protonix Inj) 40 mg IVP DAILY [facility] Last Admin: 05/31/17 09:27 Dose: 40 mg Results - Vital Signs Recent Vital Signs: Last Vital Signs Temp 98.7 F 05/31/17 08:34 Pulse 101 H 05/31/17 08:34 Resp 18 05/31/17 08:34 BP 165/83 H 05/31/17 08:34 Pulse Ox 94 L 05/31/17 08:34 - Labs Result Diagrams: 05/31/17 06:20 05/31/17 06:20 Labs: Laboratory Results - last 24 hr 05/30/17 05/30/17 05/30/17 15:18 16:49 21:04 WBC RBC Hgb Hct MCV MCH MCHC RDW Plt Count MPV Neut % (Auto) Lymph % (Auto) [place] % (Auto) Eos % (Auto) Baso % (Auto) Neut # Lymph # [place] # Eos # Baso # Sodium Potassium Chloride Carbon Dioxide Anion Gap BUN Creatinine Est GFR ( Amer) Est GFR (Non-Af Amer) POC Glucose (mg/dL) 253 H 250 H Random Glucose Calcium Phosphorus Magnesium Total Bilirubin AST ALT Alkaline Phosphatase Total Protein Albumin Globulin Albumin/Globulin Ratio Urine Color Olivia Urine Clarity slhazy Urine pH 5.0 Ur Specific [place] 1.019 Urine Protein 1+ H Urine Glucose (UA) 1+ Urine Ketones Trace Urine Blood 1+ H Urine Nitrate Negative Urine Bilirubin Negative Urine Urobilinogen Normal Ur Leukocyte Esterase 1+ H Urine WBC (Auto) 29 H Urine RBC (Auto) 32 H Ur Squamous Epith Cells 1 Urine Bacteria Occ H 05/31/17 05/31/17 05/31/17 00:14 06:20 06:20 WBC 9.0 RBC 3.47 L Hgb 9.9 L Hct 29.7 L MCV 85.5 MCH 28.4 MCHC 33.2 RDW 18.4 H Plt Count 176 MPV 8.7 Neut % (Auto) 79.1 H Lymph % (Auto) 11.5 L [place] % (Auto) 9.2 Eos % (Auto) 0.1 Baso % (Auto) 0.1 Neut # 7.1 H Lymph # 1.0 [place] # 0.8 Eos # 0.0 Baso # 0.0 Sodium 135 Potassium 2.9 L Chloride 99 Carbon Dioxide 30 Anion Gap 9 L BUN 10 Creatinine 0.6 L Est GFR ( Amer) > 60 Est GFR (Non-Af Amer) > 60 POC Glucose (mg/dL) 251 H Random Glucose 268 H Calcium 7.4 L Phosphorus 2.3 L Magnesium 1.5 L Total Bilirubin 0.9 AST 18 ALT 21 Alkaline Phosphatase 127 H D Total Protein 5.0 L Albumin 2.3 L Globulin 2.7 Albumin/Globulin Ratio 0.9 L Urine Color Urine Clarity Urine pH Ur Specific [place] Urine Protein Urine Glucose (UA) Urine Ketones Urine Blood Urine Nitrate Urine Bilirubin Urine Urobilinogen Ur Leukocyte Esterase Urine WBC (Auto) Urine RBC (Auto) Ur Squamous Epith Cells Urine Bacteria 05/31/17 06:49 WBC RBC Hgb Hct MCV MCH MCHC RDW Plt Count MPV Neut % (Auto) Lymph % (Auto) [place] % (Auto) Eos % (Auto) Baso % (Auto) Neut # Lymph # [place] # Eos # Baso # Sodium Potassium Chloride Carbon Dioxide Anion Gap BUN Creatinine Est GFR ( Amer) Est GFR (Non-Af Amer) POC Glucose (mg/dL) 284 H Random Glucose Calcium Phosphorus Magnesium Total Bilirubin AST ALT Alkaline Phosphatase Total Protein Albumin Globulin Albumin/Globulin Ratio Urine Color Urine Clarity Urine pH Ur Specific [place] Urine Protein Urine Glucose (UA) Urine Ketones Urine Blood Urine Nitrate Urine Bilirubin Urine Urobilinogen Ur Leukocyte Esterase Urine WBC (Auto) Urine RBC (Auto) Ur Squamous Epith Cells Urine Bacteria
[2017-05-31] MEDS: Magnesium Sulfate 1 gm in D5W 1 GM/100 ML BAG IVPB SCH ×2 (13:51→14:36)
--- NOTE | 2017-05-31 16:09 | CP.PCM.PN ---
Subjective - Date & Time of Evaluation Date of Evaluation: 05/31/17 Time of Evaluation: 16:07 - Subjective Subjective: Surgery Pt s&e. Pt underwent CT guided liver bx today. Tolerated it well. AMbulates. Stoma has fecal output. Objective - Vital Signs/Intake and Output Vital Signs (last 24 hours): Temp Pulse Resp BP Pulse Ox 98.7 F 101 H 18 165/83 H 94 L 05/31/17 08:34 05/31/17 08:34 05/31/17 08:34 05/31/17 08:34 05/31/17 08:34 Intake and Output: 05/31/17 05/31/17 06:59 18:59 Intake Total 1327 Output Total 1870 1200 Balance -543 -1200 - Medications Medications: Current Medications Albuterol/Ipratropium (Duoneb 3 Mg/0.5 Mg (3 Ml) Ud) 3 ml INH RQ6 PRN PRN Reason: Shortness of Breath Last Admin: 05/29/17 13:32 Dose: 3 ml Diltiazem HCl (Cardizem Cd) 120 mg PO DAILY [facility] Last Admin: 05/31/17 10:04 Dose: 120 mg Heparin Sodium (Porcine) (Heparin) 5,000 units SC Q8 [facility] Last Admin: 05/31/17 13:51 Dose: 5,000 units Hydromorphone HCl (Dilaudid) 0.5 mg IVP Q4H PRN PRN Reason: Pain, moderate (4-7) Last Admin: 05/31/17 05:35 Dose: 0.5 mg Dextrose/Sodium Chloride (Dextrose 5%/0.9% Ns 1000 Ml) 1,000 mls @ 50 mls/hr IV .Q20H [facility] Last Admin: 05/31/17 05:43 Dose: 50 mls/hr Metronidazole (Flagyl) 500 mg in 100 mls @ 100 mls/hr IVPB Q8H [facility] Last Admin: 05/31/17 11:10 Dose: 100 mls/hr Meropenem 1 gm/ Sodium (Chloride) 100 mls @ 100 mls/hr IVPB Q12H [facility] Last Admin: 05/31/17 09:00 Dose: 100 mls/hr Potassium Chloride/Dextrose (Potassium Chl 20 Meq In D5w) 1,000 mls @ 100 mls/ hr IV .Q10H [facility] Stop: 05/31/17 20:29 Last Admin: 05/31/17 10:44 Dose: 100 mls/hr Insulin Aspart (Novolog) 0 unit SC Q6H [facility] PRN Reason: Protocol Last Admin: 05/31/17 12:00 Dose: Not Given Pantoprazole Sodium (Protonix Inj) 40 mg IVP DAILY [facility] Last Admin: 05/31/17 09:27 Dose: 40 mg - Labs Labs: 05/31/17 06:20 05/31/17 06:20 PT 14.5 SECONDS (9.7-12.2) H 05/25/17 07:51 INR 1.3 05/25/17 07:51 APTT 31 SECONDS (21-34) 05/25/17 07:51 - Constitutional Appears: No Acute Distress - Head Exam Head Exam: ATRAUMATIC, NORMAL INSPECTION, NORMOCEPHALIC - Eye Exam Eye Exam: EOMI, Normal appearance, PERRL Pupil Exam: NORMAL ACCOMODATION, PERRL - ENT Exam ENT Exam: Mucous Membranes Moist, Normal Exam - Neck Exam Neck Exam: Full ROM, Normal Inspection. absent: Lymphadenopathy - Respiratory Exam Respiratory Exam: Clear to Ausculation Bilateral, NORMAL BREATHING PATTERN - Cardiovascular Exam Cardiovascular Exam: REGULAR RHYTHM, +S1, +S2. absent: Murmur - GI/Abdominal Exam GI & Abdominal Exam: Soft, Tenderness, Normal Bowel Sounds. absent: Distended, Firm, Guarding, Rigid Additional comments: Drains in place. Stoma has stool and gas. - Extremities Exam Extremities Exam: Full ROM, Normal Capillary Refill, Normal Inspection. absent : Joint Swelling, Pedal Edema - Back Exam Back Exam: NORMAL INSPECTION - Neurological Exam Neurological Exam: Alert, Awake, CN II-XII Intact, Normal Gait, Oriented x3 - Psychiatric Exam Psychiatric exam: Normal Affect, Normal Mood - Skin Skin Exam: Dry, Intact, Normal Color, Warm Assessment and Plan - Assessment and Plan (Free Text) Assessment: 86 F s/p exploratory laparotomy with diverting colostomy and liver biopsy POD#6 Bailey 1L , Drains 500/24hr, Stoma : dusky, fecal output. Plan: - Dressing changes PRN -Advance diet to Soft Diabetic - Analgesics/Anti-emetics PRN - OOB/Ambulation/Incentive spirometry/PT - DC donya D/W Dr. Richard
--- NOTE | 2017-06-01 00:03 | CON ---
DATE: INFECTIOUS DISEASE CONSULTATION REQUESTED BY: Dr. Kirkland. HISTORY OF PRESENT ILLNESS: This patient is an 86-year-old female. She was admitted on 05/19/2017, with the history of diabetes mellitus, hypertension. She was having a left lower quadrant pain for a month and she was having pain whenever she ate. She also had nonbloody diarrheas and so she was admitted on 05/19/2017 and today she had a liver biopsy done for a liver mass by the IR and she is asking for water, falling asleep. Her son is at the bedside. I am here to see her as I had placed her on Merrem and Flagyl yesterday and the patient was admitted here with abdominal pain, diarrhea, bloating and had decreased urinary output when she was admitted. There was no fever, chills, chest pain, shortness of breath, nausea, or vomiting. No history of hematuria. She did have generalized weakness. PAST SURGICAL HISTORY: Significant for total hysterectomy 30 years ago for fibroid. SOCIAL HISTORY: Negative for smoking or drinking or drug abuse. She lives alone. 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 She never smoked. FAMILY HISTORY: Noncontributory. Her son is at the bedside. MEDICATIONS: She used to be on metformin and labetalol and she is Dr. Leigh Pineda's patient. ALLERGIES: SHE IS ALLERGIC TO ASPIRIN. CODE STATUS: She is DNR and DNI at this time. REVIEW OF SYSTEMS: On admission, the review of systems are reviewed from the chart as she is drowsy and she is way into her second week of admission now, she came in on 05/19. PAST MEDICAL HISTORY: History of hypertension, diabetes, and there is no substance abuse, surgeries of hysterectomy before, and she has had anesthesia before. MEDICATIONS: At the present time, she is on IV fluids mL with potassium she is getting. She is on DuoNeb, Cardizem CD, she is on Dilaudid p.r.n. for pain, NovoLog. She is on meropenem 1 g q. 12, Flagyl, Protonix, and potassium that is going in at this time. On her previous history, she had a surgery, Dr. Richard is on board. She had a sigmoid colon mass with a liver lesion, likely mass, with weight loss and abdominal pain and she also has Dr. Foster on board, Dr. Bright on board, Dr. Richard, and she is on antibiotic, which was started on 05/30, meropenem and Flagyl. PHYSICAL EXAMINATION: GENERAL: She is very frail. She is falling asleep, may be because of the sedation she got drowsy. VITAL SIGNS: I find her temperature is 98.7, pulse of 101, blood pressure 165/83, respirations are 18. HEENT: Head is atraumatic and normocephalic. She is frail. Pupils are reacting to light. NECK: Supple. JVP is flat. LUNGS: Have no wheezes, no rhonchi, no respiratory distress. Lungs are clear. HEART: S1, S2 is regular. No murmurs appreciated. She is tachy. ABDOMEN: Prominent. There is a surgical dressing, which is clean at this time. Two DARRYL drains are present. EXTREMITIES: Have no edema, clubbing, or cyanosis. She does have a Bailey catheter and is draining urine. LABORATORY DATA: She has low potassium at this time. Her white count is 9, hemoglobin 9.9, hematocrit 29.7, platelet count is 176. Sodium is 135, potassium is 2.9, chloride is 99, CO2 is 30, anion gap is 9, BUN is 10, creatinine 0.6, alkaline phosphatase is 127, and proteins are 5. UA showed wbc 29, leukocytes 1, and rbc 32. She had blood cultures and body fluid cultures pending from peritoneal fluid from 05/30. Her surgery was on 05/30 and 05/26, done by Dr. Richard. She had laparotomy with decompression of colon, extensive irrigation with 10 L of fluid plus the Ceclor, attempted resection, same was aborted due to the fact that the tumor was invading the posterior wall of the stomach, diverting colostomy, total end colostomy, and a liver biopsy, they did all that. So at this time, let me see her imaging, she also had abdominal and pelvic CT yesterday, which shows postop findings, no evidence of ureteral injury, bulky tumor in the pelvis and hepatic metastasis including pleural effusion and consolidated changes in the lung base, stable pericardial effusion, severe postop anasarca. PLAN: So, in this case, we have to monitor the fluids and at this time, I would leave her on antibiotics. She is on meropenem and Flagyl, which we will continue at this time and we are awaiting for the peritoneal fluid culture report. Blood cultures were negative. She does have a Bailey at this time, but she is probably incontinent and she has abdominal surgery; we will discontinue when okay with the surgery and at this time, I will continue with the IV antibiotics. Prognosis is guarded and it seems that she has colon mass and liver mets but biopsy report will confirm that and will follow. She is anemic and hypokalemic and fluid needs to be monitored. Liborio Maravilla MD
[2017-06-01] MEDS: metroNIDAZOLE IV 500 mg/100 ml 500 MG/100 ML BAG IVPB SCH ×3 (04:41→19:33)
--- NOTE | 2017-06-01 07:01 | CP.PCM.PN ---
<Angela Barraza - Last Filed: 06/01/17 15:32> Subjective - Date & Time of Evaluation Date of Evaluation: 06/01/17 Time of Evaluation: 07:01 - Subjective Subjective: Medicine Progress Note for Dr. Kirkland's Service Patient was seen and examined at bedside in no acute distress. Patient reports feeling better, but wants to get out of bed. She says she is tired of laying down and wants to do her exercises. Patient otherwise has no complaints. She reports she ate a banana last night. Patient denies having chest pain, nausea, vomiting, fevers, headaches, and shortness of breath. Objective - Vital Signs/Intake and Output Vital Signs (last 24 hours): Temp Pulse Resp BP Pulse Ox 97.4 F L 97 H 20 159/84 H 92 L 05/31/17 23:25 05/31/17 23:25 05/31/17 23:25 05/31/17 23:25 05/31/17 23:25 Intake and Output: 06/01/17 06/01/17 06:59 18:59 Intake Total 150 Output Total 1190 Balance -1040 - Medications Medications: Current Medications Albuterol/Ipratropium (Duoneb 3 Mg/0.5 Mg (3 Ml) Ud) 3 ml INH RQ6 PRN PRN Reason: Shortness of Breath Last Admin: 05/29/17 13:32 Dose: 3 ml Diltiazem HCl (Cardizem Cd) 120 mg PO DAILY [facility] Last Admin: 05/31/17 10:04 Dose: 120 mg Heparin Sodium (Porcine) (Heparin) 5,000 units SC Q8 [facility] Last Admin: 06/01/17 05:41 Dose: 5,000 units Hydromorphone HCl (Dilaudid) 0.5 mg IVP Q4H PRN PRN Reason: Pain, moderate (4-7) Last Admin: 05/31/17 21:15 Dose: 0.5 mg Metronidazole (Flagyl) 500 mg in 100 mls @ 100 mls/hr IVPB Q8H [facility] Last Admin: 06/01/17 04:41 Dose: 100 mls/hr Meropenem 1 gm/ Sodium (Chloride) 100 mls @ 100 mls/hr IVPB Q12H [facility] Last Admin: 01/17/18 21:18 Dose: 100 mls/hr Insulin Aspart (Novolog) 0 unit SC ACHS [facility] PRN Reason: Protocol Pantoprazole Sodium (Protonix Inj) 40 mg IVP DAILY [facility] Last Admin: 05/31/17 09:27 Dose: 40 mg - Labs Labs: 05/31/17 06:20 05/31/17 06:20 PT 14.5 SECONDS (9.7-12.2) H 05/25/17 07:51 INR 1.3 05/25/17 07:51 APTT 31 SECONDS (21-34) 05/25/17 07:51 - Additional Findings Additional findings: - Constitutional Appears: Non-toxic, No Acute Distress - Head Exam Head Exam: ATRAUMATIC, NORMAL INSPECTION - Eye Exam Eye Exam: EOMI - ENT Exam ENT Exam: Mucous Membranes Moist - Respiratory Exam Respiratory Exam: Rales, NORMAL BREATHING PATTERN. absent: Rhonchi, Wheezes, Respiratory Distress - Cardiovascular Exam Cardiovascular Exam: REGULAR RHYTHM, +S1, +S2 - GI/Abdominal Exam GI & Abdominal Exam: Soft, Tenderness (s/p lapartomy, colostomy- with deep palpation), Diminished Bowel Sounds, Normal Bowel Sounds. absent: Distended, Firm Additional comments: Dressings dry,intact, clean; left colostomy bag in place- formed stool present. - Extremities Exam Extremities Exam: Pedal Edema (pitting edema b/l). absent: Calf Tenderness, Tenderness - Neurological Exam Neurological Exam: Alert, Awake, Oriented x3 - Psychiatric Exam Psychiatric exam: Normal Affect, Normal Mood - Skin Skin Exam: Dry, Normal Color, Warm Assessment and Plan - Assessment and Plan (Free Text) Plan: 1). Sigmoid colon mass/Liver lesion likely mets/Weight loss and abdominal pain * CT-Abd/Pelvis on admission showed 8.6 cm sigmoid mass with extensive hepatic metastasis. Bilateral renal cysts with large right upper pole renal cyst. Small bilateral pleural effusion and small pericardial effusion. Small hiatal hernia. Possible small diverticulum of the herniated stomach * Repeat Abd/Pel CT (05/30): no ureteral injury; bulk tumor in pelvis and hepatic mets disease; increasing pleural effusion in consolidative changes at the lung base; stable pericardial effusion; severe post-op anasarca. * CEA elevated @ 11.6. (Normal = 0-3.0) * Colonscopy (05/22/17): Non-bleeding external and internal hemorrhoids. 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 At the level of the distal sigmoid colon, contrast slowly traversed through a very thin and irregular channel to the level of the mid sigmoid at the site of the known sigmoid carcinoma. Contrast did not flow freely past this level. Exam was subsequently terminated. These findings were concerning for a near complete obstruction of the bowel lumen from the adjacent obstructing tumor. Consults * GI consult Dr Foster ,appreciated * recommends peripheral hyperalimentation * Started PPN on 06/01/17 with electrolytes * Dr Bright oncology consult - Recs appreciated * suggests consulting IR for FNA biopsy of liver lesions to obtain diagnosis * Surgery consult Dr Richard-appreciated * 05/25/17: Patient underwent laparotomy with diverting colostomy and liver biopsy. She was found to have the colonic mass invading the bladder and therefore was not entirely resectable * Liver Biopsy: necrotic tissue * NGT removed on 05/29/17 * Discontinued naqvi 05/31 * IR consulted for FNA biopsy of liver lesions for cancer diagnosis; help appreciated * Scheduled for biopsy today, 05/31; patient is NPO * F/U biopsy results Medications: * Dilaudid 0.5mg IV Q4 PRN for pain control 2). Sepsis * resolved leukocytosis, bandemia * procalcitonin 4.15 * Repeat procalcitonin: 1.82 * Blood cx (05/28): no growth; urine cx: no growth * Peritoneal fluid stain: negative * Repeat blood cultures (05/29/17): negative * UA: 1+ protein, 1+ blood, 1+ LE, WBC29, RBC32, Occ bacteria * ID consulted, help appreciated * Meropenem 1gm IV Q12 (started 05/30/17) * Flagyl 500mg IV Q8h (started 05/30/17) * CXR (06/01): moderate left, small right pleural effusion; moderate venous congestions; confluent opacities in left mid to lower and right mid to lower lung; cardiomegaly 3). DM 2 * Aspart ISS Q6H Low Dose * Accuchecks 4).Hypertension * Labetolol 100mg Q12H, Enalapril 15 mg Daily, and Cardizem [id number] Daily 5). Anemia * H/H stable * F/U: Iron Sat, Iron/TIBC, Ferritin, and Reticulocyte Count * S/P Transfusion upon admission * Continue to monitor 6). Pericardial effusion/cardiomegaly * Cardiology Consulted (Dr. Portillo) - help appreciated * as per Dr. Portillo, continue medical therapy; effusion is small; LV function is normal * ECHO (05/20/17): Diastolic Dysfunction Grade I-abnormal relaxation pattern, Trace TR and MR 7). Bilateral Renal Cysts * U/S Renal 05/26/17: Right Upper Pole renal cyst measures approximately 10.4x8.3x9.2 cm. Left upper pole renal cyst measures 2.2x1.4x1.6 cm * Will need follow up U/S in 6 months 8). Respiratory Acidosis * Patient was extubated on 05/26/17 and placed on BiPap and Bicarb Drip * Patient no longer on BiPap 9). Pleural Effusion * CXR (06/01): moderate left, small right pleural effusion; moderate venous congestions; confluent opacities in left mid to lower and right mid to lower lung; cardiomegaly * Continue Duonebs Q4 * Pulmonology consulted, Dr. Cherry, help appreciated 10). DVT and GI prophylaxis * Heparin 5000sc Q8 * Dilaudid 0.5 mg IV Q4H PRN Severe Pain * Protonix 40 mg IV Q12H * PT/OT * Incentive spirometry * Palliative care: patient is DNR/DNI as of 05/29/17. Polst form completed. * Diet: Diabetic diet Romero Mckoy ([phone]) Nializa Prabhakar ([phone]) as POA/Health Care Proxy Disposition: Liver biopsy results pending. Started PPN with electrolytes on 06/01. <Mamta Kirkland V - Last Filed: 06/16/17 23:29> Objective - Vital Signs/Intake and Output Vital Signs (last 24 hours): Temp Pulse Resp BP Pulse Ox 98.3 F 72 20 134/72 95 06/16/17 15:00 06/16/17 15:00 06/16/17 15:00 06/16/17 17:58 06/16/17 15:00 Intake and Output: 06/16/17 06/17/17 18:59 06:59 Intake Total 160 Output Total 20 Balance 140 - Labs Labs: 06/16/17 07:12 06/16/17 07:12 PT 15.2 SECONDS (9.7-12.2) H 06/10/17 07:39 INR 1.3 06/10/17 07:39 APTT 33 SECONDS (21-34) 06/10/17 07:39 Attending/Attestation - Attestation I have personally seen and examined this patient.: Yes I have fully participated in the care of the patient.: Yes I have reviewed all pertinent clinical information, including history, physical exam and plan: Yes Notes (Text): This is late computer entry for 06/01/17. Patient seen, examined and case discussed with day-time resident. Patient discussed during rounds today. Patient is status post FNA liver biopsy POD 1 by IR. Will need to follow-up biopsy results. Patient started on PPN as recommended by GI. Surgery recommended for pulmonary evaluation for patient's pleural effusions. Pulmonary on board. Electrolytes repleted Assessment and Plan: 1). Sigmoid colon mass Liver lesion Abdominal Pain * GI consult Dr Foster-->help appreciated * Dr Bright oncology consult-->help appreciated * Recommended for IR for FNA biopsy of liver lesion to obtain diagnoses * Surgery consult Dr Richard--->help appreciated * Palliative Care on board * IR consulted for FNA biopsy of liver lesions for cancer diagnosis since no sufficient sample to determine pathology from prior procedures * CT-Abd/Pelvis on admission showed 8.6 cm sigmoid mass with extensive hepatic metastasis. Bilateral renal cysts with large right upper pole renal cyst. Small bilateral pleural effusion and small pericardial effusion. Small hiatal hernia. Possible small diverticulum of the herniated stomach * CEA elevated @ 11.6. (Normal = 0-3.0) * Colonscopy (05/22/17): Non-bleeding external and internal hemorrhoids. 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 Biopsied * Superifical fragments of colonic epithelium with high grade dysplasia/ intraepithelial carcinoma with associated necrosis, invasion cannot be evaluated with superficial biopsy. * Barium Enema (05/23/2017): Contrast flowed freely through the rectum to the level of the distal sigmoid colon. At the level of the distal sigmoid colon, contrast slowly traversed through a very thin and irregular channel to the level of the mid sigmoid at the site of the known sigmoid carcinoma. Contrast did not flow freely past this level. Exam was subsequently terminated. These findings were concerning for a near complete obstruction of the bowel lumen from the adjacent obstructing tumor. * Operative note (05/25/17): Laparotomy, decompression of colon, extensive irrigation with 10L of fluid pus the Ceclor, attempted resection, same was aborted due to the fact the tumors have invaded the posterior wall of the somach , and diverting total end colostomy, liver biopsy * Pathology: skin with fibrosis, Liver biospy: fragments of necrotic non- viable tissue, Trimmings: portion of colonic wall with edema, muscular layer hypertrophy * Patient was extubated on 05/26/17. * CT Abdomen/Pelvis (05/30/17): postoperative findings as described above. No evidence of ureteral injury. Bulky tumor in the pelvis and hepatic metastatic disease unchanged. Increasing pleural effusions in consolidate changes at the lung base. Stable pericardial effusion. Severe postoperative anasarca. * Abx: Ciprofloaxcin 200mg IV Q12H (active since 05/28-) and Flagyl 500mg IVPB Q 6H (active since 05/27-) Switched to Meropenem 1 gram IVQ12H (active since 05/30/17) * Dilaudid 0.5mg IVP Q4H PRN moderate pain 2. Sepsis * Infectious Disease: Dr. Maravilla on the case-->help appreciated * leukocytosis, bandemia, tachycardia * Procalcitonin is elevated: 4.15 * Pending repeat procalcitonin * Abx: Ciprofloaxcin 200mg IV Q12H (active since 05/28-) and Flagyl 500mg IVPB Q 6H (active since 05/27-) Switched to Meropenem 1 gram IVQ12H (active since 05/30/17) * 05/29/17: Blood cultures pending * 05/30/17: Body Fluid Culture: pending * 05/28/17: Blood cultures: no growth * 05/28/17: urine: no growth * 05/25/17: peritoneal fluid: gram stain final * 05/25/17: MRSA not detected 4).DM 2 * Aspart ISS QACHS * Accuchecks QAC and HS * Diet as tolerated 4).Hypertension * Restart Labetolol 100mg Q12H * c/w Cardizem 120mg PO daily 5).Anemia * S/P Transfusion upon admission * H/H Stable * Cont. to monitor 6).Pericardial effusion/cardiomegaly * Cardiology Consulted (Dr. Portillo) - help appreciated * The overall left ventricular function is normal. The effusion is small. There is no evidence of tamponade. medical therapy. no contraindication to the planned colonoscopy * ECHO (05/20/17): Diastolic Dysfunction Grade I-abnormal relaxation pattern, Trace TR and MR 7). Bilateral Renal Cysts * U/S Renal 05/26/17: Right Upper Pole renal cyst measures approximately 10.4x8.3x9.2 cm. Left upper pole renal cyst measures 2.2x1.4x1.6 cm * Will need follow up U/S in 6 months 8). DVT and GI prophylaxis * Restart Heparin 5000 units subq 8H * Dialudid 0.5 mg IV Q4H PRN Severe Pain * Protonix 40 mg IV Q daily * Palliative care on board * PROXY DIRECTIVE which designates renetta Prabhakar ([phone]) as POA/Health Care Proxy and patient is DNR/DNI confirmed with POA Disposition: Patient is on IV antibiotics; on PPN. Follow-up liver biopsy. Pulmonary consult. Electrolytes repleted.
--- NOTE | 2017-06-01 07:21 | PN ---
DATE: LOCATION: 8, bed A. SUBJECTIVE: This is an 86-year-old female in a state of DNR and DNI, seen in rounds today, out of the Intensive Care Unit, with a complaint of abdominal and lower back pain, still on the pain medication. The entire chart is reviewed including but not limited to most recent lab and radiology study results, current and previous medication list, current and previous medical events. Case was discussed with the staff as well as the patient's son at length again. Today's lab showed hemoglobin of 9.9, hematocrit 29.7 with low potassium 2.9 and blood glucose level 284 with low calcium 7.4, low phosphorus 2.3 with low magnesium 1.5 with low albumin 2.3 and low total protein 5.0, patient has loss of appetite with very poor oral intake recently. Repeat abdominal and pelvic CAT scan done yesterday, report is seen, including pelvis and hepatic metastatic lesion as well as increased pleural effusion with pericardial effusion with severe postoperative anasarca. PHYSICAL EXAMINATION: GENERAL: An 86-year-old female. VITAL SIGNS: Afebrile with pulse of 100, respiratory rate of 20 to 22, and blood pressure of 168/80. HEENT: Showed pale, dry oral mucous membrane. Nonicteric sclerae. LUNGS: Few scattered crepitation with decreased air entry at bases bilaterally. HEART: Positive S1 and S2 with increased rate. ABDOMEN: Soft. Bowel sounds are present. No mass or organomegaly. No rebound tenderness or guarding. Bowel sounds are excessively low, covered with clean dressing. EXTREMITIES: With edematous changes. No clubbing or cyanosis. NEUROLOGIC: No reported new neurological deficits, sensory or motor. IMPRESSION: 1. 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 2. Status post partial colon resection. 3. Known history of hypertension and diabetes mellitus. 4. Pericardial effusion with pleural effusion bilaterally. 5. Electrolyte imbalance by recent history. 6. Malnutrition with hypoalbuminemia. 7. Bilateral large renal cyst by radiology study results. SUGGESTION: 1. Continue current management, supportive treatment. 2. No need for aggressive GI workup. 3. Further recommendations to follow. Sp Leblanc MD
[2017-06-01 08:00] LABS: BASO % 0.2 % (0.0-2.0); EOS % 0.1 % (0.0-4.0); HEMOGLOBIN 9.9 g/dL (11.0-16.0); LYMPH # 1.1 K/uL (1.0-4.3); LYMPH % 11.4 % (20.0-40.0); MEAN CELL VOLUME 83.7 fL (81.0-99.0); MEAN CORPUSCULAR HEMOGLOBIN 28.5 pg (27.0-31.0); MEAN CORPUSCULAR HGB CONC 34.1 g/dL (33.0-37.0); MEAN PLATELET VOLUME 8.8 fL (7.2-11.7); MONO # 0.8 K/uL (0.0-0.8); MONO % 7.9 % (0.0-10.0); NEUT # 7.8 K/uL (1.8-7.0); NEUT % 80.4 % (50.0-75.0); RBC 3.49 Mil/uL (3.80-5.20); RED CELL DISTRIBUTION WIDTH 18.8 % (11.5-14.5); WHITE BLOOD COUNT 9.7 K/uL (4.8-10.8)
[2017-06-01] MEDS: (Novolog) Insulin Aspart, Recombinant 100 u/ml 10 ml vial SC SCH ×4 (08:02→22:40)
[2017-06-01 08:19] LABS: ALBUMIN 2.3 g/dL (3.5-5.0); ALT/SGPT 21 U/L (9-52); AST/SGOT 15 U/L (14-36); BLOOD UREA NITROGEN 8 mg/dL (7-17); CALCIUM 7.2 mg/dl (8.6-10.4); GFR AFRICAN-AMERICAN > 60; GFR NON-AFRICAN AMERICAN > 60; MAGNESIUM 1.7 mg/dL (1.6-2.3)
[2017-06-01 08:24] LABS: ALB/GLOB RATIO 0.8 (1.0-2.1)
[2017-06-01] MEDS ORDERED: Potassium Chloride 20 mEq ER Tab PO SCH ×2 (08:45→10:00)
[2017-06-01] MEDS ORDERED: Potassium Chloride 20 mEq ER Tab PO ONE (08:50)
[2017-06-01 08:59] LABS: ARTERIAL BLOOD GAS HCO3 30.1 mmol/L (21-28); ARTERIAL BLOOD GAS O2 SAT 97.5 % (95-98); ARTERIAL BLOOD GAS PCO2 44 mm/Hg (35-45); ARTERIAL BLOOD GAS PH 7.46 (7.35-7.45); ARTERIAL BLOOD GAS PO2 72 mm/Hg (80-100); ARTERIAL BLOOD GAS TCO2 32.7 mmol/L (22-28)
--- NOTE | 2017-06-01 09:25 | RAD ---
Chest x-ray single frontal view History: Pleural effusions. Comparison: 05/26/2017 Findings Interval removal of a nasogastric and endotracheal tube. Moderate left and small right pleural effusion. Moderate venous congestion. Confluent opacities in the left mid to lower lung zone as well as the right mid to lower lung zone. Cardiomegaly. Degenerative changes in the spine and shoulders. Calcification at the aortic knob. Impression: Interval removal of a nasogastric and endotracheal tube. Moderate left and small right pleural effusion. Moderate venous congestion. Confluent opacities in the left mid to lower lung zone as well as the right mid to lower lung zone. Cardiomegaly.
[2017-06-01] MEDS: diltiaZEM 120 mg/24 Hours CD Cap PO SCH (09:40)
[2017-06-01] MEDS: Meropenem 1 GM in Sodium Chloride 0.9% 100 ML IVPB SCH ×2 (09:41→22:39)
[2017-06-01] MEDS ORDERED: Potassium & Sodium Phosphate PO ONE (11:18)
[2017-06-01] MEDS: Magnesium Sulfate 1 gm in D5W 1 GM/100 ML BAG IVPB SCH ×2 (12:01→12:30)
--- NOTE | 2017-06-01 12:11 | CP.PCM.PN ---
Subjective - Date & Time of Evaluation Date of Evaluation: 06/01/17 Time of Evaluation: 12:09 - Subjective Subjective: Surgery Pt s&e. Dressing changed. +void. TOlerating diet. NAEON. Pain controlled. + amb. Objective - Vital Signs/Intake and Output Vital Signs (last 24 hours): Temp Pulse Resp BP Pulse Ox 98.3 F 91 H 20 164/90 H 97 06/01/17 08:51 06/01/17 08:51 06/01/17 08:51 06/01/17 08:51 06/01/17 08:51 Intake and Output: 06/01/17 06/01/17 06:59 18:59 Intake Total 150 Output Total 1190 Balance -1040 - Medications Medications: Current Medications Albuterol/Ipratropium (Duoneb 3 Mg/0.5 Mg (3 Ml) Ud) 3 ml INH RQ4 [facility] Diltiazem HCl (Cardizem Cd) 120 mg PO DAILY [facility] Last Admin: 06/01/17 09:40 Dose: 120 mg Heparin Sodium (Porcine) (Heparin) 5,000 units SC Q8 [facility] Last Admin: 06/01/17 05:41 Dose: 5,000 units Hydromorphone HCl (Dilaudid) 0.5 mg IVP Q4H PRN PRN Reason: Pain, moderate (4-7) Last Admin: 06/01/17 08:01 Dose: 0.5 mg Metronidazole (Flagyl) 500 mg in 100 mls @ 100 mls/hr IVPB Q8H [facility] Last Admin: 06/01/17 04:41 Dose: 100 mls/hr Meropenem 1 gm/ Sodium (Chloride) 100 mls @ 100 mls/hr IVPB Q12H [facility] Last Admin: 06/01/17 09:41 Dose: 100 mls/hr Potassium Chloride (Potassium Chloride 20 Meq/100 Ml) 20 meq in 100 mls @ 50 mls/hr IVPB ONCE ONE Stop: 06/01/17 12:59 Magnesium Sulfate/Dextrose (Magnesium Sulfate 1 Gm/100 Ml D5w) 1 gm in 100 mls @ 300 mls/hr IVPB Q30M [facility] Stop: 06/01/17 12:19 Last Admin: 06/01/17 12:01 Dose: 300 mls/hr Potassium Chloride 20 meq/Multivitamins/Vitamin C 10 ml/Chromium/Copper/ Manganese/Zinc 1 ml/ Amino Acids 1,021 mls @ 42 mls/hr IV .Q24H [facility] Fat Emulsion Intravenous (Intralipid 20%) 500 mls @ 42 mls/hr IV MWF6 [facility] Insulin Aspart (Novolog) 0 unit SC ACHS [facility] PRN Reason: Protocol Last Admin: 06/01/17 08:02 Dose: 3 unit Labetalol HCl (Trandate) 100 mg PO BID [facility] Pantoprazole Sodium (Protonix Inj) 40 mg IVP DAILY [facility] Last Admin: 06/01/17 09:40 Dose: 40 mg Potassium Phos/Sodium Phos (Neutra-Phos) 1 pkt PO BID [facility] Stop: 06/01/17 18:01 - Labs Labs: 06/01/17 07:50 06/01/17 07:50 PT 14.5 SECONDS (9.7-12.2) H 05/25/17 07:51 INR 1.3 05/25/17 07:51 APTT 31 SECONDS (21-34) 05/25/17 07:51 - Constitutional Appears: No Acute Distress - Head Exam Head Exam: ATRAUMATIC, NORMAL INSPECTION, NORMOCEPHALIC - Eye Exam Eye Exam: EOMI, Normal appearance, PERRL Pupil Exam: NORMAL ACCOMODATION, PERRL - ENT Exam ENT Exam: Mucous Membranes Moist, Normal Exam - Neck Exam Neck Exam: Full ROM, Normal Inspection. absent: Lymphadenopathy - Respiratory Exam Respiratory Exam: Clear to Ausculation Bilateral, NORMAL BREATHING PATTERN - Cardiovascular Exam Cardiovascular Exam: REGULAR RHYTHM, +S1, +S2. absent: Murmur - GI/Abdominal Exam GI & Abdominal Exam: Soft, Tenderness, Normal Bowel Sounds. absent: Distended, Firm, Guarding, Rigid Additional comments: Drain : SS. 700cc. Incision C/D/I - Rectal Exam Rectal Exam: NORMAL INSPECTION - Exam Exam: NORMAL INSPECTION - Extremities Exam Extremities Exam: Full ROM, Normal Capillary Refill, Normal Inspection. absent : Joint Swelling, Pedal Edema - Back Exam Back Exam: NORMAL INSPECTION - Neurological Exam Neurological Exam: Alert, Awake, CN II-XII Intact, Oriented x3 - Psychiatric Exam Psychiatric exam: Normal Affect, Normal Mood - Skin Skin Exam: Dry, Intact, Normal Color, Warm Assessment and Plan - Assessment and Plan (Free Text) Assessment: 86 F s/p exploratory laparotomy with diverting colostomy and liver biopsy POD#7 Urine 1L , Drains 700/24hr, Stoma : dusky, fecal output. Plan: - Dressing changes PRN -Soft Diabetic diet - Analgesics/Anti-emetics PRN - OOB/Ambulation/Incentive spirometry/PT -Medical management D/W Dr. Richard
[2017-06-01] MEDS: Potassium & Sodium Phosphate PO SCH ×2 (13:19→23:20)
[2017-06-01] MEDS: Albuterol-Ipratrop 3 mg / 0.5 (3 ml) UD INH SCH ×4 (14:26→23:55)
--- NOTE | 2017-06-01 14:54 | US ---
PROCEDURE: Date of procedure: 05/31/2017 Procedure: Ultrasound-guided percutaneous core biopsy of liver mass, CPT 11686 Ultrasound guidance for biopsy, CPT 14035 Medications: The patient was sedated by the anesthesiologist with IV sedation and monitoring. HISTORY: Liver Mass TECHNIQUE: Following informed consent and procedure time-out, the patient was placed supine on bed and limited ultrasound showed large complex liver mass within the right and left hepatic lobes. After the patient abdomen was prepped and draped in the usual sterile fashion and the skin anesthetized with lidocaine, an 18 gauge core needle was advanced percutaneously under direct ultrasound guidance into the left hepatic mass. Upon confirmation of needle position, three core specimens were obtained and sent for routine pathology. The biopsy track was then embolized with Gelfoam. A post biopsy ultrasound performed showed no hematoma. A dressing was applied. IMPRESSION: Ultrasound-guided core biopsy of left hepatic mass.
--- NOTE | 2017-06-01 17:07 | CP.PCM.PN ---
Subjective - Date & Time of Evaluation Date of Evaluation: 05/31/17 Time of Evaluation: 18:00 - Subjective Subjective: S/p IR core liver biopsy Objective - Vital Signs/Intake and Output Vital Signs (last 24 hours): Temp Pulse Resp BP Pulse Ox 97.7 F 93 H 20 136/79 95 06/01/17 15:00 06/01/17 15:00 06/01/17 15:00 06/01/17 15:00 06/01/17 15:00 Intake and Output: 06/01/17 06/01/17 06:59 18:59 Intake Total 150 Output Total 1190 Balance -1040 - Medications Medications: Current Medications Albuterol/Ipratropium (Duoneb 3 Mg/0.5 Mg (3 Ml) Ud) 3 ml INH RQ4 [facility] Last Admin: 06/01/17 16:55 Dose: Not Given Diltiazem HCl (Cardizem Cd) 120 mg PO DAILY [facility] Last Admin: 06/01/17 09:40 Dose: 120 mg Heparin Sodium (Porcine) (Heparin) 5,000 units SC Q8 [facility] Last Admin: 06/01/17 14:43 Dose: 5,000 units Hydromorphone HCl (Dilaudid) 0.5 mg IVP Q4H PRN PRN Reason: Pain, moderate (4-7) Last Admin: 06/01/17 08:01 Dose: 0.5 mg Metronidazole (Flagyl) 500 mg in 100 mls @ 100 mls/hr IVPB Q8H [facility] Last Admin: 06/01/17 12:43 Dose: 100 mls/hr Meropenem 1 gm/ Sodium (Chloride) 100 mls @ 100 mls/hr IVPB Q12H [facility] Last Admin: 06/01/17 09:41 Dose: 100 mls/hr Potassium Chloride 20 meq/Multivitamins/Vitamin C 10 ml/Chromium/Copper/ Manganese/Zinc 1 ml/ Amino Acids 1,021 mls @ 42 mls/hr IV .Q24H [facility] Fat Emulsion Intravenous (Intralipid 20%) 500 mls @ 42 mls/hr IV MWF6 [facility] Insulin Aspart (Novolog) 0 unit SC ACHS [facility] PRN Reason: Protocol Last Admin: 06/01/17 12:26 Dose: 4 unit Labetalol HCl (Trandate) 100 mg PO BID [facility] Pantoprazole Sodium (Protonix Inj) 40 mg IVP DAILY [facility] Last Admin: 06/01/17 09:40 Dose: 40 mg Potassium Phos/Sodium Phos (Neutra-Phos) 1 pkt PO BID [facility] Stop: 06/01/17 18:01 Last Admin: 06/01/17 13:19 Dose: 1 pkt - Labs Labs: 06/01/17 07:50 06/01/17 07:50 PT 14.5 SECONDS (9.7-12.2) H 05/25/17 07:51 INR 1.3 05/25/17 07:51 APTT 31 SECONDS (21-34) 05/25/17 07:51 - Head Exam Head Exam: ATRAUMATIC - Eye Exam Eye Exam: Normal appearance - ENT Exam ENT Exam: Mucous Membranes Dry - Respiratory Exam Respiratory Exam: NORMAL BREATHING PATTERN - Cardiovascular Exam Cardiovascular Exam: +S1, +S2 - GI/Abdominal Exam GI & Abdominal Exam: Normal Bowel Sounds Assessment and Plan (1) Colonic mass Status: Acute (2) Liver lesion Status: Acute (3) Anemia Status: Acute (4) Coagulopathy Status: Acute
--- NOTE | 2017-06-01 17:08 | CP.PCM.PN ---
Subjective - Date & Time of Evaluation Date of Evaluation: 06/01/17 Time of Evaluation: 17:00 - Subjective Subjective: Trying to eat more Objective - Vital Signs/Intake and Output Vital Signs (last 24 hours): Temp Pulse Resp BP Pulse Ox 97.7 F 93 H 20 136/79 95 06/01/17 15:00 06/01/17 15:00 06/01/17 15:00 06/01/17 15:00 06/01/17 15:00 Intake and Output: 06/01/17 06/01/17 06:59 18:59 Intake Total 150 Output Total 1190 Balance -1040 - Medications Medications: Current Medications Albuterol/Ipratropium (Duoneb 3 Mg/0.5 Mg (3 Ml) Ud) 3 ml INH RQ4 [facility] Last Admin: 06/01/17 16:55 Dose: Not Given Diltiazem HCl (Cardizem Cd) 120 mg PO DAILY [facility] Last Admin: 06/01/17 09:40 Dose: 120 mg Heparin Sodium (Porcine) (Heparin) 5,000 units SC Q8 [facility] Last Admin: 06/01/17 14:43 Dose: 5,000 units Hydromorphone HCl (Dilaudid) 0.5 mg IVP Q4H PRN PRN Reason: Pain, moderate (4-7) Last Admin: 06/01/17 08:01 Dose: 0.5 mg Metronidazole (Flagyl) 500 mg in 100 mls @ 100 mls/hr IVPB Q8H [facility] Last Admin: 06/01/17 12:43 Dose: 100 mls/hr Meropenem 1 gm/ Sodium (Chloride) 100 mls @ 100 mls/hr IVPB Q12H [facility] Last Admin: 06/01/17 09:41 Dose: 100 mls/hr Potassium Chloride 20 meq/Multivitamins/Vitamin C 10 ml/Chromium/Copper/ Manganese/Zinc 1 ml/ Amino Acids 1,021 mls @ 42 mls/hr IV .Q24H [facility] Fat Emulsion Intravenous (Intralipid 20%) 500 mls @ 42 mls/hr IV MWF6 [facility] Insulin Aspart (Novolog) 0 unit SC ACHS [facility] PRN Reason: Protocol Last Admin: 06/01/17 12:26 Dose: 4 unit Labetalol HCl (Trandate) 100 mg PO BID [facility] Pantoprazole Sodium (Protonix Inj) 40 mg IVP DAILY [facility] Last Admin: 06/01/17 09:40 Dose: 40 mg Potassium Phos/Sodium Phos (Neutra-Phos) 1 pkt PO BID [facility] Stop: 06/01/17 18:01 Last Admin: 06/01/17 13:19 Dose: 1 pkt - Labs Labs: 06/01/17 07:50 06/01/17 07:50 PT 14.5 SECONDS (9.7-12.2) H 05/25/17 07:51 INR 1.3 05/25/17 07:51 APTT 31 SECONDS (21-34) 05/25/17 07:51 - Head Exam Head Exam: ATRAUMATIC - Eye Exam Eye Exam: Normal appearance - ENT Exam ENT Exam: Mucous Membranes Dry - Respiratory Exam Respiratory Exam: NORMAL BREATHING PATTERN - Cardiovascular Exam Cardiovascular Exam: +S1 - GI/Abdominal Exam GI & Abdominal Exam: Normal Bowel Sounds Assessment and Plan (1) Colonic mass Assessment & Plan: non diagnostic biopsy Status: Acute (2) Liver lesion Assessment & Plan: s/p IR core biopsy Status: Acute (3) Anemia Assessment & Plan: chronic disease Status: Acute (4) Coagulopathy Status: Acute
--- NOTE | 2017-06-01 17:17 | CP.PCM.CON ---
History of Present Illness - History of Present Illness History of Present Illness: Pt is an 86 year old female with PMHx of DM2 and HTN who was admitted on 05/19/17 after she presented with abdominal pain and diarrhea and was found to have a sigmoid mass with extensive hepatic mets on imaging in the ED. Pt is s/p diverting colostomy and partial sigmoid mass resection on 05/22/17. Pulmonary consult called for possible bilateral pleural effusions shown on CXR. Today, pt is in NAD. Has no acute complaints at this time. Denies shortness of breath, cough, fever, chills, hemoptysis. PMHx:HTN, DM2 PSHx: Total hysterectomy, appendectomy, Diverting colostomy with partial sigmoid mass resection (05/22/17) Meds: Labetelol 100 mg PO BID, Metformin 1000 mg PO BID Allergies: Aspirin Family Hx: unknown Social Hx: Denies alcohol, drug and tobacco use. Lives alone. Exam: Diminished breath sound on L side and RLL A/P: Pleural effusions Pt asymptomatic spO2 97% on 3L NC Afebrile order Chest CT -pending results, consult IR for thorocentesis 06/01/17 CXR-confluent opacities in L mid to lower lung zones and R mid to lower lung zones. 06/01/17 ABG: pCO2 44, pO2 72, HCO3 30.1, pH 7.46 Past Patient History - Past Medical History & Family History Past Medical History?: Yes - Past Social History Smoking Status: Never Smoked - CARDIAC Hx Hypertension: Yes - ENDOCRINE/METABOLIC Hx Diabetes Mellitus Type 2: Yes - MUSCULOSKELETAL/RHEUMATOLOGICAL Hx Falls: No - PSYCHIATRIC Hx Substance Use: No - SURGICAL HISTORY Hx Surgeries: No - ANESTHESIA Hx Anesthesia: No Hx Anesthesia Reactions: No Meds Allergies/Adverse Reactions: Allergies Allergy/AdvReac Type Severity Reaction Status Date / Time aspirin AdvReac Verified 11/03/16 12:35 - Medications Medications: Current Medications Albuterol/Ipratropium (Duoneb 3 Mg/0.5 Mg (3 Ml) Ud) 3 ml INH RQ4 [facility] Last Admin: 06/01/17 16:55 Dose: Not Given Diltiazem HCl (Cardizem Cd) 120 mg PO DAILY [facility] Last Admin: 06/01/17 09:40 Dose: 120 mg Heparin Sodium (Porcine) (Heparin) 5,000 units SC Q8 [facility] Last Admin: 06/01/17 14:43 Dose: 5,000 units Hydromorphone HCl (Dilaudid) 0.5 mg IVP Q4H PRN PRN Reason: Pain, moderate (4-7) Last Admin: 06/01/17 08:01 Dose: 0.5 mg Metronidazole (Flagyl) 500 mg in 100 mls @ 100 mls/hr IVPB Q8H [facility] Last Admin: 06/01/17 12:43 Dose: 100 mls/hr Meropenem 1 gm/ Sodium (Chloride) 100 mls @ 100 mls/hr IVPB Q12H [facility] Last Admin: 06/01/17 09:41 Dose: 100 mls/hr Potassium Chloride 20 meq/Multivitamins/Vitamin C 10 ml/Chromium/Copper/ Manganese/Zinc 1 ml/ Amino Acids 1,021 mls @ 42 mls/hr IV .Q24H [facility] Fat Emulsion Intravenous (Intralipid 20%) 500 mls @ 42 mls/hr IV MWF6 [facility] Insulin Aspart (Novolog) 0 unit SC ACHS [facility] PRN Reason: Protocol Last Admin: 06/01/17 12:26 Dose: 4 unit Labetalol HCl (Trandate) 100 mg PO BID [facility] Pantoprazole Sodium (Protonix Inj) 40 mg IVP DAILY [facility] Last Admin: 06/01/17 09:40 Dose: 40 mg Potassium Phos/Sodium Phos (Neutra-Phos) 1 pkt PO BID [facility] Stop: 06/01/17 18:01 Last Admin: 06/01/17 13:19 Dose: 1 pkt Results - Vital Signs Recent Vital Signs: Last Vital Signs Temp 97.7 F 06/01/17 15:00 Pulse 93 H 06/01/17 15:00 Resp 20 06/01/17 15:00 BP 136/79 06/01/17 15:00 Pulse Ox 95 06/01/17 15:00 - Labs Result Diagrams: 06/01/17 07:50 06/01/17 07:50 Labs: Laboratory Results - last 24 hr 05/31/17 05/31/17 06/01/17 13:42 21:04 06:44 WBC RBC Hgb Hct MCV MCH MCHC RDW Plt Count MPV Neut % (Auto) Lymph % (Auto) [place] % (Auto) Eos % (Auto) Baso % (Auto) Neut # Lymph # [place] # Eos # Baso # Puncture Site pCO2 pO2 HCO3 ABG pH ABG Total CO2 ABG O2 Saturation ABG Base Excess ABG Hemoglobin ABG Carboxyhemoglobin POC ABG HHb (Measured) ABG Methemoglobin Candelario Test A-a O2 Difference Respiratory Index Hgb O2 Saturation Liter Flow FiO2 Sodium Potassium Chloride Carbon Dioxide Anion Gap BUN Creatinine Est GFR ( Amer) Est GFR (Non-Af Amer) POC Glucose (mg/dL) 363 H 319 H Random Glucose Calcium Phosphorus Magnesium Total Bilirubin AST ALT Alkaline Phosphatase Total Protein Albumin Globulin Albumin/Globulin Ratio Procalcitonin 1.82 H 06/01/17 06/01/17 06/01/17 07:50 07:50 08:55 WBC 9.7 RBC 3.49 L Hgb 9.9 L Hct 29.2 L MCV 83.7 MCH 28.5 MCHC 34.1 RDW 18.8 H Plt Count 190 MPV 8.8 Neut % (Auto) 80.4 H Lymph % (Auto) 11.4 L [place] % (Auto) 7.9 Eos % (Auto) 0.1 Baso % (Auto) 0.2 Neut # 7.8 H Lymph # 1.1 Free[place] # 0.8 Eos # 0.0 Baso # 0.0 Puncture Site Rb pCO2 44 pO2 72 L HCO3 30.1 H ABG pH 7.46 H ABG Total CO2 32.7 H ABG O2 Saturation 97.5 ABG Base Excess 6.7 H ABG Hemoglobin 10.0 L ABG Carboxyhemoglobin 2.3 H POC ABG HHb (Measured) 2.4 ABG Methemoglobin 1.3 Candelario Test Na A-a O2 Difference 66.0 Respiratory Index 0.9 Hgb O2 Saturation 93.9 L Liter Flow 2.0 FiO2 27.0 Sodium 129 L Potassium 2.8 L Chloride 92 L Carbon Dioxide 31 H Anion Gap 9 L BUN 8 Creatinine 0.6 L Est GFR ( Amer) > 60 Est GFR (Non-Af Amer) > 60 POC Glucose (mg/dL) Random Glucose 337 H Calcium 7.2 L Phosphorus 1.9 L Magnesium 1.7 Total Bilirubin 1.0 AST 15 ALT 21 Alkaline Phosphatase 139 H Total Protein 5.3 L Albumin 2.3 L Globulin 3.0 Albumin/Globulin Ratio 0.8 L Procalcitonin 06/01/17 06/01/17 12:14 16:28 WBC RBC Hgb Hct MCV MCH MCHC RDW Plt Count MPV Neut % (Auto) Lymph % (Auto) [place] % (Auto) Eos % (Auto) Baso % (Auto) Neut # Lymph # Free[place] # Eos # Baso # Puncture Site pCO2 pO2 HCO3 ABG pH ABG Total CO2 ABG O2 Saturation ABG Base Excess ABG Hemoglobin ABG Carboxyhemoglobin POC ABG HHb (Measured) ABG Methemoglobin Candelario Test A-a O2 Difference Respiratory Index Hgb O2 Saturation Liter Flow FiO2 Sodium Potassium Chloride Carbon Dioxide Anion Gap BUN Creatinine Est GFR ( Amer) Est GFR (Non-Af Amer) POC Glucose (mg/dL) 320 H 363 H Random Glucose Calcium Phosphorus Magnesium Total Bilirubin AST ALT Alkaline Phosphatase Total Protein Albumin Globulin Albumin/Globulin Ratio Procalcitonin
[2017-06-01 17:59] LABS: BLOOD UREA NITROGEN 9 mg/dL (7-17); CALCIUM 7.1 mg/dl (8.6-10.4); GFR AFRICAN-AMERICAN > 60; GFR NON-AFRICAN AMERICAN > 60
[2017-06-01] MEDS ORDERED: PPN #1 IV SCH (18:00)
--- NOTE | 2017-06-01 22:02 | PN ---
DATE: LOCATION: [facility], bed A. SUBJECTIVE: This is an 86-year-old female seen and examined in rounds with family members at bedside, still in a status of DNR and DNI without reported active bleeding, post surgically. The entire chart is reviewed, including but not limited to the most recent lab and radiology study results, current and the previous medication lists, current and the previous medical events, and the patient's hemoglobin today is 9.9, hematocrit 29.2 with normal platelet count and normal white blood cells with abnormal ABGs with low sodium 126 and increased CO2 content 31 indicative of respiratory alkalosis with low creatinine of 0.6 and increased blood glucose level 363 with low calcium 7.1, alkaline phosphatase mildly elevated to 139 with low albumin 2.3. Today's chest x-ray indicative of pneumonia with moderate venous congestion. The patient off NG tube and off T tube, was reported right and left pleural effusion, not responding well to verbal stimuli. PHYSICAL EXAMINATION: GENERAL: An 86-year-old female. VITAL SIGNS: Afebrile with pulse of 90, respiratory rate 20 to 24 with blood pressure of 130/76. HEENT: Showed pale, dry oral mucous membrane. Nonicteric sclerae. LUNGS: Few scattered crepitation, decreased air entry at bases. HEART: Positive S1 and S2. ABDOMEN: Soft with clean dressing. Bowel sounds are hypoactive. No mass or organomegaly. EXTREMITIES: With lower extremities mild edematous changes. No clubbing or cyanosis. NEUROLOGIC: No reported new neurological deficits, sensory or motor. No focal deficits new reported. IMPRESSION: 1. 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 2. Anemia most likely secondary to above. 3. Malnutrition with hypoalbuminemia, hypoproteinemia. 4. The patient's oral intake somewhat mildly increased, but not adequately. 5. Pneumonia with pleural effusion bilaterally. 6. Known history of diabetes mellitus and hypertension. 7. Bilateral large renal cysts by Radiology study results. SUGGESTION: 1. Continue current management. 2. Again the patient will need continue peripheral hyperalimentation in the meantime. 3. Further recommendation to follow. Thank you for letting me participate in your patient's case management. Sp Leblanc MD [facility] # [phone]
[2017-06-02] MEDS: Albuterol-Ipratrop 3 mg / 0.5 (3 ml) UD INH SCH ×6 (03:08→23:31)
[2017-06-02] MEDS: metroNIDAZOLE IV 500 mg/100 ml 500 MG/100 ML BAG IVPB SCH ×3 (05:26→19:18)
[2017-06-02 07:00] LABS: BASO % 0.5 % (0.0-2.0); EOS % 0.1 % (0.0-4.0); HEMOGLOBIN 9.3 g/dL (11.0-16.0); LYMPH % 11.8 % (20.0-40.0); MEAN CELL VOLUME 84.2 fL (81.0-99.0); MEAN CORPUSCULAR HEMOGLOBIN 28.1 pg (27.0-31.0); MEAN CORPUSCULAR HGB CONC 33.3 g/dL (33.0-37.0); MEAN PLATELET VOLUME 8.7 fL (7.2-11.7); MONO # 0.5 K/uL (0.0-0.8); MONO % 5.8 % (0.0-10.0); NEUT # 7.1 K/uL (1.8-7.0); NEUT % 81.8 % (50.0-75.0); RBC 3.33 Mil/uL (3.80-5.20); RED CELL DISTRIBUTION WIDTH 18.6 % (11.5-14.5); WHITE BLOOD COUNT 8.7 K/uL (4.8-10.8)
--- NOTE | 2017-06-02 07:10 | CP.PCM.PN ---
<Megha Monk - Last Filed: 06/02/17 18:05> Subjective - Date & Time of Evaluation Date of Evaluation: 06/02/17 Time of Evaluation: 07:00 - Subjective Subjective: Medicine Progress Note: Patient was seen and examined at bedside in no acute distress. Patient reports feeling better, but wants to get out of bed. Patient otherwise has no complaints. She states she had half of her banana this morning. Patient denies having chest pain, nausea, vomiting, fevers, headaches, and shortness of breath. Objective - Vital Signs/Intake and Output Vital Signs (last 24 hours): Temp Pulse Resp BP Pulse Ox 97.8 F 83 18 132/84 98 06/01/17 23:30 06/01/17 23:30 06/01/17 23:30 06/01/17 23:30 06/01/17 23:30 Intake and Output: 06/02/17 06/02/17 06:59 18:59 Intake Total 550 Output Total 930 Balance -380 - Medications Medications: Current Medications Albuterol/Ipratropium (Duoneb 3 Mg/0.5 Mg (3 Ml) Ud) 3 ml INH RQ4 [facility] Last Admin: 06/02/17 03:08 Dose: 3 ml Diltiazem HCl (Cardizem Cd) 120 mg PO DAILY [facility] Last Admin: 06/01/17 09:40 Dose: 120 mg Heparin Sodium (Porcine) (Heparin) 5,000 units SC Q8 [facility] Last Admin: 06/02/17 05:27 Dose: 5,000 units Hydromorphone HCl (Dilaudid) 0.5 mg IVP Q4H PRN PRN Reason: Pain, moderate (4-7) Last Admin: 06/02/17 05:28 Dose: 0.5 mg Metronidazole (Flagyl) 500 mg in 100 mls @ 100 mls/hr IVPB Q8H [facility] Last Admin: 06/02/17 05:26 Dose: 100 mls/hr Meropenem 1 gm/ Sodium (Chloride) 100 mls @ 100 mls/hr IVPB Q12H [facility] Last Admin: 06/01/17 22:39 Dose: 100 mls/hr Potassium Chloride 20 meq/Multivitamins/Vitamin C 10 ml/Chromium/Copper/ Manganese/Zinc 1 ml/ Amino Acids 1,021 mls @ 42 mls/hr IV .Q24H [facility] Last Admin: 06/01/17 19:00 Dose: 42 mls/hr Fat Emulsion Intravenous (Intralipid 20%) 500 mls @ 42 mls/hr IV [id number] [facility] Insulin Aspart (Novolog) 0 unit SC ACHS [facility] PRN Reason: Protocol Last Admin: 06/01/17 22:40 Dose: 5 unit Labetalol HCl (Trandate) 100 mg PO BID [facility] Last Admin: 06/01/17 19:33 Dose: 100 mg Pantoprazole Sodium (Protonix Inj) 40 mg IVP DAILY [facility] Last Admin: 06/01/17 09:40 Dose: 40 mg - Labs Labs: 06/01/17 07:50 06/01/17 17:16 PT 14.5 SECONDS (9.7-12.2) H 05/25/17 07:51 INR 1.3 05/25/17 07:51 APTT 31 SECONDS (21-34) 05/25/17 07:51 - Constitutional Appears: Non-toxic, No Acute Distress - Head Exam Head Exam: ATRAUMATIC, NORMAL INSPECTION - Eye Exam Eye Exam: EOMI - ENT Exam ENT Exam: Mucous Membranes Moist - Respiratory Exam Respiratory Exam: Clear to Ausculation Bilateral, NORMAL BREATHING PATTERN - Cardiovascular Exam Cardiovascular Exam: REGULAR RHYTHM, +S1, +S2 - GI/Abdominal Exam GI & Abdominal Exam: Soft, Tenderness, Hypoactive Bowel Sounds Additional comments: Tenderness (s/p lapartomy, colostomy- with deep palpation), - Extremities Exam Extremities Exam: Normal Inspection - Psychiatric Exam Psychiatric exam: Normal Affect, Normal Mood - Skin Additional comments: Dressings dry,intact, clean; left colostomy bag in place- formed stool present. Assessment and Plan - Assessment and Plan (Free Text) Assessment: Plan: 1). Sigmoid colon mass/Liver lesion likely mets/Weight loss and abdominal pain * CT-Abd/Pelvis on admission showed 8.6 cm sigmoid mass with extensive hepatic metastasis. Bilateral renal cysts with large right upper pole renal cyst. Small bilateral pleural effusion and small pericardial effusion. Small hiatal hernia. Possible small diverticulum of the herniated stomach * Repeat Abd/Pel CT (05/30): no ureteral injury; bulk tumor in pelvis and hepatic mets disease; increasing pleural effusion in consolidative changes at the lung base; stable pericardial effusion; severe post-op anasarca. * CEA elevated @ 11.6. (Normal = 0-3.0) * Colonscopy (05/22/17): Non-bleeding external and internal hemorrhoids. 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 At the level of the distal sigmoid colon, contrast slowly traversed through a very thin and irregular channel to the level of the mid sigmoid at the site of the known sigmoid carcinoma. Contrast did not flow freely past this level. Exam was subsequently terminated. These findings were concerning for a near complete obstruction of the bowel lumen from the adjacent obstructing tumor. Consults * GI consult Dr Foster ,appreciated * recommends peripheral hyperalimentation * Started PPN on 06/01/17 with electrolytes - PPN stopped 06/02 due to elevated glucose - Dietary Consult --> help appreciated * Dr Bright oncology consult - Recs appreciated * suggests consulting IR for FNA biopsy of liver lesions to obtain diagnosis * Surgery consult Dr Richard-appreciated * 05/25/17: Patient underwent laparotomy with diverting colostomy and liver biopsy. She was found to have the colonic mass invading the bladder and therefore was not entirely resectable * Liver Biopsy: necrotic tissue * NGT removed on 05/29/17 * Discontinued naqvi 05/31 * IR consulted for FNA biopsy of liver lesions for cancer diagnosis; help appreciated * Scheduled for biopsy today, 05/31; patient is NPO * F/U biopsy results Medications: * Dilaudid 0.5mg IV Q4 PRN for pain control 2). Sepsis * resolved leukocytosis, bandemia * procalcitonin 4.15 * Repeat procalcitonin: 1.82 * f/u procalcionin 06/03 * Blood cx (05/28): no growth; urine cx: no growth * Peritoneal fluid stain: negative * Repeat blood cultures (05/29/17): negative * UA: 1+ protein, 1+ blood, 1+ LE, WBC29, RBC32, Occ bacteria * ID consulted, help appreciated * Meropenem 1gm IV Q12 (started 05/30/17) * Flagyl 500mg IV Q8h (started 05/30/17) * CXR (06/01): moderate left, small right pleural effusion; moderate venous congestions; confluent opacities in left mid to lower and right mid to lower lung; cardiomegaly 3). DM 2 * Aspart ISS Q6H Low Dose * Accuchecks -moderate * Lantus 10 units HS 4).Hypertension * Labetolol 100mg Q12H, Enalapril 15 mg Daily, and Cardizem [id number] Daily 5). Anemia * H/H stable * F/U: Iron Sat, Iron/TIBC, Ferritin, and Reticulocyte Count * S/P Transfusion upon admission * Continue to monitor 6). Pericardial effusion/cardiomegaly * Cardiology Consulted (Dr. Portillo) - help appreciated * as per Dr. Portillo, continue medical therapy; effusion is small; LV function is normal * ECHO (05/20/17): Diastolic Dysfunction Grade I-abnormal relaxation pattern, Trace TR and MR 7). Bilateral Renal Cysts * U/S Renal 05/26/17: Right Upper Pole renal cyst measures approximately 10.4x8.3x9.2 cm. Left upper pole renal cyst measures 2.2x1.4x1.6 cm * Will need follow up U/S in 6 months 8). Respiratory Acidosis * Patient was extubated on 05/26/17 and placed on BiPap and Bicarb Drip * Patient no longer on BiPap 9). Pleural Effusion * CXR (06/01): moderate left, small right pleural effusion; moderate venous congestions; confluent opacities in left mid to lower and right mid to lower lung; cardiomegaly * Continue Duonebs Q4 * Pulmonology consulted, Dr. Cherry, help appreciated 10). DVT and GI prophylaxis * Heparin 5000sc Q8 * Dilaudid 0.5 mg IV Q4H PRN Severe Pain * Protonix 40 mg IV Q12H * PT/OT * Incentive spirometry * Palliative care: patient is DNR/DNI as of 05/29/17. Polst form completed. * Diet: Diabetic diet Son Dominick Mckoy ([phone]) Nializa Prabhakar ([phone]) as POA/Health Care Proxy Disposition: Liver biopsy results pending. Started PPN with electrolytes on 06/01. <Mamta Kirkland V - Last Filed: 06/16/17 23:36> Objective - Vital Signs/Intake and Output Vital Signs (last 24 hours): Temp Pulse Resp BP Pulse Ox 98.3 F 72 20 134/72 95 06/16/17 15:00 06/16/17 15:00 06/16/17 15:00 06/16/17 17:58 06/16/17 15:00 Intake and Output: 06/16/17 06/17/17 18:59 06:59 Intake Total 160 Output Total 20 Balance 140 - Labs Labs: 06/16/17 07:12 06/16/17 07:12 PT 15.2 SECONDS (9.7-12.2) H 06/10/17 07:39 INR 1.3 06/10/17 07:39 APTT 33 SECONDS (21-34) 06/10/17 07:39 Attending/Attestation - Attestation I have personally seen and examined this patient.: Yes I have fully participated in the care of the patient.: Yes I have reviewed all pertinent clinical information, including history, physical exam and plan: Yes Notes (Text): This is late computer entry for 06/02/17. Patient seen, examined and case discussed with day-time resident. Patient discussed during rounds today. Patient is status post FNA liver biopsy POD 2 by IR. Will need to follow-up biopsy results. Electrolytes repleted Pulmonary following in light of pleural effusion. Patient does not report shortness of breathe. Sugars uncontrolled; started on long acting insulin and will adjust from there. Assessment and Plan: 1). Sigmoid colon mass Liver lesion Abdominal Pain * GI consult Dr Foster-->help appreciated * Dr Bright oncology consult-->help appreciated * Recommended for IR for FNA biopsy of liver lesion to obtain diagnoses * Surgery consult Dr Richard--->help appreciated * Palliative Care on board * IR consulted for FNA biopsy of liver lesions for cancer diagnosis since no sufficient sample to determine pathology from prior procedures * CT-Abd/Pelvis on admission showed 8.6 cm sigmoid mass with extensive hepatic metastasis. Bilateral renal cysts with large right upper pole renal cyst. Small bilateral pleural effusion and small pericardial effusion. Small hiatal hernia. Possible small diverticulum of the herniated stomach * CEA elevated @ 11.6. (Normal = 0-3.0) * Colonscopy (05/22/17): Non-bleeding external and internal hemorrhoids. 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 Biopsied * Superifical fragments of colonic epithelium with high grade dysplasia/ intraepithelial carcinoma with associated necrosis, invasion cannot be evaluated with superficial biopsy. * Barium Enema (05/23/2017): Contrast flowed freely through the rectum to the level of the distal sigmoid colon. At the level of the distal sigmoid colon, contrast slowly traversed through a very thin and irregular channel to the level of the mid sigmoid at the site of the known sigmoid carcinoma. Contrast did not flow freely past this level. Exam was subsequently terminated. These findings were concerning for a near complete obstruction of the bowel lumen from the adjacent obstructing tumor. * Operative note (05/25/17): Laparotomy, decompression of colon, extensive irrigation with 10L of fluid pus the Ceclor, attempted resection, same was aborted due to the fact the tumors have invaded the posterior wall of the somach , and diverting total end colostomy, liver biopsy * Pathology: skin with fibrosis, Liver biospy: fragments of necrotic non- viable tissue, Trimmings: portion of colonic wall with edema, muscular layer hypertrophy * Patient was extubated on 05/26/17. * CT Abdomen/Pelvis (05/30/17): postoperative findings as described above. No evidence of ureteral injury. Bulky tumor in the pelvis and hepatic metastatic disease unchanged. Increasing pleural effusions in consolidate changes at the lung base. Stable pericardial effusion. Severe postoperative anasarca. * Abx: Ciprofloaxcin 200mg IV Q12H (active since 05/28-) and Flagyl 500mg IVPB Q 6H (active since 05/27-) Switched to Meropenem 1 gram IVQ12H (active since 05/30/17) * Dilaudid 0.5mg IVP Q4H PRN moderate pain 2. Sepsis * Infectious Disease: Dr. Maravilla on the case-->help appreciated * leukocytosis, bandemia, tachycardia * Procalcitonin is elevated: 4.15-->downtrending * Abx: Ciprofloaxcin 200mg IV Q12H (active since 05/28-) and Flagyl 500mg IVPB Q 6H (active since 05/27-) Switched to Meropenem 1 gram IVQ12H (active since 05/30/17) * 05/29/17: Blood cultures pending * 05/30/17: Body Fluid Culture: pending * 05/28/17: Blood cultures: no growth * 05/28/17: urine: no growth * 05/25/17: peritoneal fluid: gram stain final * 05/25/17: MRSA not detected 4).DM 2 * Aspart ISS QACHS * Accuchecks QAC and HS * Start Lantus 10 units subqHS * Sugars uncontrolled 4).Hypertension * Restart Labetolol 100mg Q12H * c/w Cardizem 120mg PO daily 5).Anemia * S/P Transfusion upon admission * H/H Stable * Cont. to monitor 6).Pericardial effusion/cardiomegaly * Cardiology Consulted (Dr. Portillo) - help appreciated * The overall left ventricular function is normal. The effusion is small. There is no evidence of tamponade. medical therapy. no contraindication to the planned colonoscopy * ECHO (05/20/17): Diastolic Dysfunction Grade I-abnormal relaxation pattern, Trace TR and MR 7). Bilateral Renal Cysts * U/S Renal 05/26/17: Right Upper Pole renal cyst measures approximately 10.4x8.3x9.2 cm. Left upper pole renal cyst measures 2.2x1.4x1.6 cm * Will need follow up U/S in 6 months 8) Pleural effusions * Pulmonary (Dr. Cherry) on board-->help appreciated * CT Chest (06/02/17): moderate bilateral pleural effusion with bilateral lower lobe segmental/subsegmental atelectasis. Cardiomeglay with small pericardial effusion. probable widespread hepatic metastasis. 9). DVT and GI prophylaxis * Restart Heparin 5000 units subq 8H * Dialudid 0.5 mg IV Q4H PRN Severe Pain * Protonix 40 mg IV Q daily * Palliative care on board * PROXY DIRECTIVE which designates renetta Prabhakar ([phone]) as POA/Health Care Proxy and patient is DNR/DNI confirmed with POA * PT/OT eval Disposition: Patient is on IV antibiotics; on PPN. Follow-up liver biopsy. Monitor accuchecks. Start Lantus 10 units at night.
[2017-06-02] MEDS: (Novolog) Insulin Aspart, Recombinant 100 u/ml 10 ml vial SC SCH ×4 (08:09→22:19)
[2017-06-02 08:26] LABS: ALBUMIN 2.1 g/dL (3.5-5.0); BLOOD UREA NITROGEN 10 mg/dL (7-17); CALCIUM 6.8 mg/dl (8.6-10.4); GFR AFRICAN-AMERICAN > 60; GFR NON-AFRICAN AMERICAN > 60; MAGNESIUM 1.8 mg/dL (1.6-2.3)
[2017-06-02 08:27] LABS: ALB/GLOB RATIO 0.8 (1.0-2.1); ALT/SGPT 21 U/L (9-52); AST/SGOT 12 U/L (14-36)
--- NOTE | 2017-06-02 08:49 | CP.PCM.PN ---
Subjective - Date & Time of Evaluation Date of Evaluation: 06/02/17 Time of Evaluation: 08:47 - Subjective Subjective: Surgery PT s&e. NAEON. Tolerating diet. + amb. +void. Pain controlled. Objective - Vital Signs/Intake and Output Vital Signs (last 24 hours): Temp Pulse Resp BP Pulse Ox 98.0 F 83 18 122/73 100 06/02/17 08:00 06/02/17 08:00 06/02/17 08:00 06/02/17 08:00 06/02/17 08:00 Intake and Output: 06/02/17 06/02/17 06:59 18:59 Intake Total 986 Output Total 930 Balance 56 - Medications Medications: Current Medications Albuterol/Ipratropium (Duoneb 3 Mg/0.5 Mg (3 Ml) Ud) 3 ml INH RQ4 [facility] Last Admin: 06/02/17 07:20 Dose: 3 ml Diltiazem HCl (Cardizem Cd) 120 mg PO DAILY [facility] Last Admin: 06/01/17 09:40 Dose: 120 mg Heparin Sodium (Porcine) (Heparin) 5,000 units SC Q8 [facility] Last Admin: 06/02/17 05:27 Dose: 5,000 units Hydromorphone HCl (Dilaudid) 0.5 mg IVP Q4H PRN PRN Reason: Pain, moderate (4-7) Last Admin: 06/02/17 05:28 Dose: 0.5 mg Metronidazole (Flagyl) 500 mg in 100 mls @ 100 mls/hr IVPB Q8H [facility] Last Admin: 06/02/17 05:26 Dose: 100 mls/hr Meropenem 1 gm/ Sodium (Chloride) 100 mls @ 100 mls/hr IVPB Q12H [facility] Last Admin: 06/01/17 22:39 Dose: 100 mls/hr Potassium Chloride 20 meq/Multivitamins/Vitamin C 10 ml/Chromium/Copper/ Manganese/Zinc 1 ml/ Amino Acids 1,021 mls @ 42 mls/hr IV .Q24H [facility] Last Admin: 06/01/17 19:00 Dose: 42 mls/hr Fat Emulsion Intravenous (Intralipid 20%) 500 mls @ 42 mls/hr IV MWF6 [facility] Insulin Aspart (Novolog) 0 unit SC ACHS [facility] PRN Reason: Protocol Last Admin: 06/02/17 08:09 Dose: 5 unit Labetalol HCl (Trandate) 100 mg PO BID [facility] Last Admin: 06/01/17 19:33 Dose: 100 mg Pantoprazole Sodium (Protonix Inj) 40 mg IVP DAILY [facility] Last Admin: 06/01/17 09:40 Dose: 40 mg - Labs Labs: 06/02/17 06:45 06/02/17 06:45 PT 14.5 SECONDS (9.7-12.2) H 05/25/17 07:51 INR 1.3 05/25/17 07:51 APTT 31 SECONDS (21-34) 05/25/17 07:51 - Constitutional Appears: No Acute Distress - Head Exam Head Exam: ATRAUMATIC, NORMAL INSPECTION, NORMOCEPHALIC - Eye Exam Eye Exam: EOMI, Normal appearance, PERRL Pupil Exam: NORMAL ACCOMODATION, PERRL - ENT Exam ENT Exam: Mucous Membranes Moist, Normal Exam - Neck Exam Neck Exam: Full ROM, Normal Inspection. absent: Lymphadenopathy - Respiratory Exam Respiratory Exam: Clear to Ausculation Bilateral, NORMAL BREATHING PATTERN - Cardiovascular Exam Cardiovascular Exam: REGULAR RHYTHM, +S1, +S2. absent: Murmur - GI/Abdominal Exam GI & Abdominal Exam: Soft, Normal Bowel Sounds. absent: Distended, Firm, Guarding, Rigid, Tenderness Additional comments: Drains in place ss - Extremities Exam Extremities Exam: Full ROM, Normal Capillary Refill, Normal Inspection. absent : Joint Swelling, Pedal Edema - Back Exam Back Exam: NORMAL INSPECTION - Neurological Exam Neurological Exam: Alert, Awake, CN II-XII Intact, Normal Gait, Oriented x3 - Psychiatric Exam Psychiatric exam: Normal Affect, Normal Mood - Skin Skin Exam: Dry, Intact, Normal Color, Warm Assessment and Plan - Assessment and Plan (Free Text) Assessment: 86 F s/p exploratory laparotomy with diverting colostomy and liver biopsy POD#8 Urine 1L , Drains 800/24hr, Stoma : dusky, fecal output. Plan: - Dressing changes PRN -Soft Diabetic diet - Analgesics/Anti-emetics PRN - OOB/Ambulation/Incentive spirometry/PT -Medical management Will D/W Dr. Richard
[2017-06-02] MEDS: diltiaZEM 120 mg/24 Hours CD Cap PO SCH (10:41)
[2017-06-02] MEDS: Meropenem IV 1 gm in NS 50 ML IVPB SCH ×2 (11:38→22:20)
[2017-06-02] MEDS ORDERED: (Novolin R) Insulin Human Regular 100 units/ml vial SC ONE (11:46)
[2017-06-02] MEDS ORDERED: (Novolog) Insulin Aspart, Recombinant 100 u/ml 10 ml vial SC STA (12:15)
--- NOTE | 2017-06-02 13:21 | CP.PCM.PN ---
Objective - Vital Signs/Intake and Output Vital Signs (last 24 hours): Temp Pulse Resp BP Pulse Ox 98.0 F 83 18 122/73 100 06/02/17 08:00 06/02/17 08:00 06/02/17 08:00 06/02/17 08:00 06/02/17 08:00 Intake and Output: 06/02/17 06/02/17 06:59 18:59 Intake Total 986 Output Total 930 Balance 56 - Medications Medications: Current Medications Albuterol/Ipratropium (Duoneb 3 Mg/0.5 Mg (3 Ml) Ud) 3 ml INH RQ4 [facility] Last Admin: 06/02/17 11:41 Dose: Not Given Diltiazem HCl (Cardizem Cd) 120 mg PO DAILY [facility] Last Admin: 06/02/17 10:41 Dose: 120 mg Heparin Sodium (Porcine) (Heparin) 5,000 units SC Q8 [facility] Last Admin: 06/02/17 05:27 Dose: 5,000 units Hydromorphone HCl (Dilaudid) 0.5 mg IVP Q4H PRN PRN Reason: Pain, moderate (4-7) Last Admin: 06/02/17 05:28 Dose: 0.5 mg Metronidazole (Flagyl) 500 mg in 100 mls @ 100 mls/hr IVPB Q8H [facility] Last Admin: 06/02/17 12:53 Dose: 100 mls/hr Potassium Chloride 20 meq/Multivitamins/Vitamin C 10 ml/Chromium/Copper/ Manganese/Zinc 1 ml/ Amino Acids 1,021 mls @ 42 mls/hr IV .Q24H [facility] Stop: 06/02/17 17:59 Last Admin: 06/01/17 19:00 Dose: 42 mls/hr Fat Emulsion Intravenous (Intralipid 20%) 500 mls @ 42 mls/hr IV MWF6 [facility] Potassium Chloride 20 meq/Multivitamins/Vitamin C 10 ml/Chromium/Copper/ Manganese/Zinc 1 ml/ Amino Acids 1,021 mls @ 42 mls/hr IV .Q24H [facility] Stop: 06/03/17 17:59 Meropenem (Merrem Iv 1 Gm Premix) 50 mls @ 50 mls/hr IVPB Q12H [facility] Last Admin: 06/02/17 11:38 Dose: 50 mls/hr Insulin Aspart (Novolog) 0 unit SC ACHS [facility] PRN Reason: Protocol Last Admin: 06/02/17 12:21 Dose: 6 unit Labetalol HCl (Trandate) 100 mg PO BID [facility] Last Admin: 06/02/17 10:41 Dose: 100 mg Pantoprazole Sodium (Protonix Ec Tab) 40 mg PO DAILY [facility] - Labs Labs: 06/02/17 06:45 06/02/17 06:45 PT 14.5 SECONDS (9.7-12.2) H 05/25/17 07:51 INR 1.3 05/25/17 07:51 APTT 31 SECONDS (21-34) 05/25/17 07:51
--- NOTE | 2017-06-02 15:10 | PN ---
DATE: LOCATION: [facility], bed A. SUBJECTIVE: This is an 86-year-old female in the state of DNR and DNI, seen in rounds without significant clinical changes. Appeared to be slightly and mildly lethargic. The entire chart is reviewed, including but not limited to the most recent lab and radiology study results, current and previous medication lists, current and previous medical events and today's lab showed hemoglobin dropped to 9.3, hematocrit 28.1 with normal white blood cells and normal platelet count with low sodium 126 and low creatinine of 0.5. Her blood glucose level, the latest is 373 with low calcium of 6.8, low phosphorus 2.1 with low albumin 2.1, total protein low at 4.7 with increased alkaline phosphatase 153. Most recent chest x-ray done yesterday, report is seen, indicative of pneumonia in the left lung as well as moderate venous congestion. PHYSICAL EXAMINATION: GENERAL: An 86-year-old female. VITAL SIGNS: Afebrile with pulse of 80, respiratory rate 20-22, blood pressure 126/76. HEENT: Showed pale dry oral mucoid membrane. Nonicteric sclerae. LUNGS: Few scattered crepitation. Decreased air entry at bases. HEART: Positive S1 and S2. ABDOMEN: Soft. Bowel sounds are present with mild generalized distention covered with clean dressing. No mass or organomegaly. NEUROLOGIC: No reported new neurological deficits, sensory or motor. It has to be mentioned that the patient so far tolerating some oral intake with less abdominal pain recently. is in place with some small amount of fecal material. No reported active bleeding from the colostomy. IMPRESSION: 1. Left-sided colon cancer with diverting colostomy and possible metastatic lesion to the liver. 2. Malnutrition with hypoalbuminemia, improving gradually. 3. Anemia secondary to above. 4. Pneumonia with reported pleural effusion bilaterally before. 5. Known history of hypertension, diabetes mellitus. 6. Bilateral large renal cyst by Radiology study results. SUGGESTIONS: 1. Continue current management. 2. Advance diet as tolerated. 3. Peripheral hyperalimentation. 4. Further recommendation to follow. Sp Leblanc MD [facility] # [id number]
--- NOTE | 2017-06-02 15:46 | CP.PCM.PN ---
Subjective - Date & Time of Evaluation Date of Evaluation: 06/02/17 Time of Evaluation: 03:45 - Subjective Subjective: dictated Objective - Vital Signs/Intake and Output Vital Signs (last 24 hours): Temp Pulse Resp BP Pulse Ox 98.0 F 83 18 122/73 100 06/02/17 08:00 06/02/17 08:00 06/02/17 08:00 06/02/17 08:00 06/02/17 08:00 Intake and Output: 06/02/17 06/02/17 06:59 18:59 Intake Total 986 Output Total 930 235 Balance 56 -235 - Medications Medications: Current Medications Albuterol/Ipratropium (Duoneb 3 Mg/0.5 Mg (3 Ml) Ud) 3 ml INH RQ4 [facility] Last Admin: 06/02/17 11:41 Dose: Not Given Diltiazem HCl (Cardizem Cd) 120 mg PO DAILY [facility] Last Admin: 06/02/17 10:41 Dose: 120 mg Heparin Sodium (Porcine) (Heparin) 5,000 units SC Q8 [facility] Last Admin: 06/02/17 15:43 Dose: Not Given Hydromorphone HCl (Dilaudid) 0.5 mg IVP Q4H PRN PRN Reason: Pain, moderate (4-7) Last Admin: 06/02/17 05:28 Dose: 0.5 mg Metronidazole (Flagyl) 500 mg in 100 mls @ 100 mls/hr IVPB Q8H [facility] Last Admin: 06/02/17 12:53 Dose: 100 mls/hr Meropenem (Merrem Iv 1 Gm Premix) 50 mls @ 50 mls/hr IVPB Q12H [facility] Last Admin: 06/02/17 11:38 Dose: 50 mls/hr Insulin Aspart (Novolog) 0 unit SC ACHS [facility] PRN Reason: Protocol Insulin Glargine (Lantus) 10 unit SC HS [facility] Labetalol HCl (Trandate) 100 mg PO BID [facility] Last Admin: 06/02/17 10:41 Dose: 100 mg Pantoprazole Sodium (Protonix Ec Tab) 40 mg PO DAILY [facility] - Labs Labs: 06/02/17 06:45 06/02/17 06:45 PT 14.5 SECONDS (9.7-12.2) H 01/11/18 07:51 INR 1.3 05/25/17 07:51 APTT 31 SECONDS (21-34) 05/25/17 07:51
--- NOTE | 2017-06-02 16:40 | CT ---
PROCEDURE: CT Chest without contrast HISTORY: pleural effusion COMPARISON: 05/21/2017 TECHNIQUE: Contiguous axial images were obtained through the chest without intravenous contrast enhancement. Sagittal and coronal reconstructions were performed. Radiation dose (DLP): 204.96 mGy-cm. This CT exam was performed using one or more of the following dose reduction techniques: Automated exposure control, adjustment of the mA and/or kV according to patient size, and/or use of iterative reconstruction technique. FINDINGS: LUNGS: Bilateral segmental/ subsegmental lower lobe atelectasis. No pulmonary infiltrate. No pulmonary mass identified. MEDIASTINUM: Unremarkable thoracic aorta. No aneurysm. Mild cardiomegaly. Small pericardial effusion. Coronary arterial calcification. Main pulmonary artery unremarkable. No vascular congestion. No lymphadenopathy. PLEURA: Moderate bilateral pleural effusion. No pneumothorax. BONES: No fracture. No destructive lesion. UPPER ABDOMEN: Partially necrotic mass in left hepatic lobe. See CT abdomen of 05/21/2017. Heterogeneous liver likely reflecting additional metastases. OTHER FINDINGS: None. IMPRESSION: Moderate bilateral pleural effusion with bilateral lower lobe segmental/ subsegmental atelectasis. Cardiomegaly with small pericardial effusion. Probable widespread hepatic metastasis.
[2017-06-02] MEDS ORDERED: **PPN #2 IV SCH (18:00)
[2017-06-02] MEDS ORDERED: Fat Emulsion 20% IV 500 ML IV SCH (18:00)
--- NOTE | 2017-06-02 21:27 | CP.PCM.PN ---
Subjective - Date & Time of Evaluation Date of Evaluation: 06/02/17 Time of Evaluation: 12:30 - Subjective Subjective: No complaints, wants to try to eat in a chair. Objective - Vital Signs/Intake and Output Vital Signs (last 24 hours): Temp Pulse Resp BP Pulse Ox 98.4 F 85 18 111/65 96 06/02/17 15:15 06/02/17 15:15 06/02/17 15:15 06/02/17 15:15 06/02/17 15:15 Intake and Output: 06/02/17 06/03/17 18:59 06:59 Output Total 235 Balance -235 - Medications Medications: Current Medications Albuterol/Ipratropium (Duoneb 3 Mg/0.5 Mg (3 Ml) Ud) 3 ml INH RQ4 [facility] [place] Last Admin: 06/02/17 16:08 Dose: Not Given Diltiazem HCl (Cardizem Cd) 120 mg PO DAILY [facility] [place] Last Admin: 06/02/17 10:41 Dose: 120 mg Heparin Sodium (Porcine) (Heparin) 5,000 units SC Q8 [facility] [place] Last Admin: 06/02/17 15:43 Dose: Not Given Hydromorphone HCl (Dilaudid) 0.5 mg IVP Q4H PRN PRN Reason: Pain, moderate (4-7) Last Admin: 06/02/17 19:12 Dose: 0.5 mg Metronidazole (Flagyl) 500 mg in 100 mls @ 100 mls/hr IVPB Q8H [facility] [place] Last Admin: 06/02/17 19:18 Dose: 100 mls/hr Meropenem (Merrem Iv 1 Gm Premix) 50 mls @ 50 mls/hr IVPB Q12H [facility] [place] Last Admin: 06/02/17 11:38 Dose: 50 mls/hr Insulin Aspart (Novolog) 0 unit SC ACHS [facility] PRN Reason: Protocol Last Admin: 06/02/17 17:56 Dose: 8 unit Insulin Glargine (Lantus) 10 unit SC HS [facility] [place] Labetalol HCl (Trandate) 100 mg PO BID [facility] [place] Last Admin: 06/02/17 17:56 Dose: 100 mg Pantoprazole Sodium (Protonix Ec Tab) 40 mg PO DAILY [facility] [place] - Labs Labs: 06/02/17 06:45 06/02/17 06:45 PT 14.5 SECONDS (9.7-12.2) H 05/25/17 07:51 INR 1.3 05/25/17 07:51 APTT 31 SECONDS (21-34) 05/25/17 07:51 - Head Exam Head Exam: ATRAUMATIC - Eye Exam Eye Exam: Normal appearance - ENT Exam ENT Exam: Mucous Membranes Dry - Respiratory Exam Respiratory Exam: NORMAL BREATHING PATTERN - Cardiovascular Exam Cardiovascular Exam: +S1, +S2 - GI/Abdominal Exam GI & Abdominal Exam: Normal Bowel Sounds Assessment and Plan (1) Colonic mass Assessment & Plan: non diagnostic biopsy Status: Acute (2) Liver lesion Assessment & Plan: non diagnostic intra op biopsy s/p IR percutaneous liver lesion biopsy. Status: Acute (3) Anemia Assessment & Plan: chronic disease Status: Acute (4) Coagulopathy Assessment & Plan: nutritional Status: Acute
[2017-06-02] MEDS ORDERED: (Lantus) Insulin Glargine, Recombinant SC SCH (22:00)
--- NOTE | 2017-06-03 00:43 | PN ---
DATE: SUBJECTIVE: She was going to go for a CAT scan. She denied any abdominal pain. She is weak and frail. Her son was at the bedside. OBJECTIVE: GENERAL: She denies any abdominal pain. Frail. VITAL SIGNS: T-max is 98.4, pulse 85, blood pressure is 111/65, respirations are 18. She was saying that they removed lot of fluid, it seems from the DARRYL drain. HEENT: Head is atraumatic. NECK: Supple. LUNGS: Clear. No crackles or rales present. Decreased breath sounds bilaterally. HEART: S1, S2 is regular. ABDOMEN: Soft, post-op, has edel and DARRYL drain present. EXTREMITIES: There is no edema. LABORATORY DATA: White count is 8.7, hemoglobin 9.3, hematocrit 28.1, platelet count is 196. BUN is 10 and creatinine 0.5. Sugars are 386. Hemoglobin A1c came out to be 8.4. Cultures have been all negative. Urine, MRSA. Peritoneal fluid did not grow anything. Blood culture x2 are negative. Venous culture is negative. Urine culture is negative. ASSESSMENT AND PLAN: She had surgery on . 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 So he did extensive irrigation, attempted resection, somewhat aborted; and tumor has invaded the posterior wall of the stomach. He did a diverting colostomy and a liver biopsy. She has cancer, and she went for a chest CT today, and at the time I am dictating, her imaging report came back, on 06/02. Chest CT shows moderate bilateral pleural effusion and bilateral lobe segmental atelectasis, cardiomegaly with small pericardial effusion, probably widespread hepatic metastasis, she has bilateral pleural effusion. At this time we need to monitor the input and output. Her white count is coming down to normal probably. Sodium however is 126. I will discuss further plan with the attending. Liborio Maravilla MD
[2017-06-03] MEDS: Albuterol-Ipratrop 3 mg / 0.5 (3 ml) UD INH SCH ×5 (03:15→19:56)
[2017-06-03] MEDS: metroNIDAZOLE IV 500 mg/100 ml 500 MG/100 ML BAG IVPB SCH ×2 (04:10→11:47)
--- NOTE | 2017-06-03 04:48 | CP.PCM.PN ---
<Angela Barraza - Last Filed: 06/03/17 05:40> Subjective - Date & Time of Evaluation Date of Evaluation: 06/03/17 Time of Evaluation: 04:46 - Subjective Subjective: Medicine Progress note for Dr. Kirkland's service Patient was seen and examined at bedside in the morning. Patient is in no acute distress. She reports she is tired of being in bed, her leg's "feel like bricks " and she "feels stuck because she can't get out of bed". Patient otherwise has no complains. Patient denies chest pain, abdominal pain, nausea, vomiting, fevers, headaches, and shortness of breath. Objective - Vital Signs/Intake and Output Vital Signs (last 24 hours): Temp Pulse Resp BP Pulse Ox 97.9 F 97 H 20 117/69 90 L 06/02/17 23:27 06/02/17 23:27 06/02/17 23:27 06/02/17 23:27 06/02/17 23:27 Intake and Output: 06/02/17 06/03/17 18:59 06:59 Intake Total 500 Output Total 235 590 Balance -235 -90 - Medications Medications: Current Medications Albuterol/Ipratropium (Duoneb 3 Mg/0.5 Mg (3 Ml) Ud) 3 ml INH RQ4 [facility] Last Admin: 06/03/17 03:15 Dose: Not Given Diltiazem HCl (Cardizem Cd) 120 mg PO DAILY [facility] Last Admin: 06/02/17 10:41 Dose: 120 mg Heparin Sodium (Porcine) (Heparin) 5,000 units SC Q8 [facility] Last Admin: 06/02/17 22:14 Dose: 5,000 units Hydromorphone HCl (Dilaudid) 0.5 mg IVP Q4H PRN PRN Reason: Pain, moderate (4-7) Last Admin: 06/02/17 19:12 Dose: 0.5 mg Metronidazole (Flagyl) 500 mg in 100 mls @ 100 mls/hr IVPB Q8H [facility] Last Admin: 06/02/17 19:18 Dose: 100 mls/hr Meropenem (Merrem Iv 1 Gm Premix) 50 mls @ 50 mls/hr IVPB Q12H [facility] Last Admin: 06/02/17 22:20 Dose: 50 mls/hr Insulin Aspart (Novolog) 0 unit SC ACHS [facility] PRN Reason: Protocol Last Admin: 06/02/17 22:19 Dose: 3 unit Insulin Glargine (Lantus) 10 unit SC HS [facility] Last Admin: 06/02/17 22:15 Dose: 10 units Labetalol HCl (Trandate) 100 mg PO BID [facility] Last Admin: 06/02/17 17:56 Dose: 100 mg Pantoprazole Sodium (Protonix Ec Tab) 40 mg PO DAILY [facility] - Labs Labs: 06/02/17 06:45 06/02/17 06:45 PT 14.5 SECONDS (9.7-12.2) H 05/25/17 07:51 INR 1.3 05/25/17 07:51 APTT 31 SECONDS (21-34) 05/25/17 07:51 - Additional Findings Additional findings: - Constitutional Appears: Non-toxic, No Acute Distress - Head Exam Head Exam: ATRAUMATIC, NORMAL INSPECTION - Eye Exam Eye Exam: EOMI - ENT Exam ENT Exam: Mucous Membranes Moist - Respiratory Exam Respiratory Exam: Rales, NORMAL BREATHING PATTERN. absent: Rhonchi, Wheezes, Respiratory Distress - Cardiovascular Exam Cardiovascular Exam: REGULAR RHYTHM, +S1, +S2 - GI/Abdominal Exam GI & Abdominal Exam: Soft, Tenderness (s/p lapartomy, colostomy- with deep palpation), Diminished Bowel Sounds, Normal Bowel Sounds. absent: Distended, Firm Additional comments: Dressings dry,intact, clean; left colostomy bag in place- formed stool present. - Extremities Exam Extremities Exam: Pedal Edema (pitting edema b/l). absent: Calf Tenderness, Tenderness - Neurological Exam Neurological Exam: Alert, Awake, Oriented x3 - Psychiatric Exam Psychiatric exam: Normal Affect, Normal Mood - Skin Skin Exam: Dry, Normal Color, Warm Assessment and Plan - Assessment and Plan (Free Text) Plan: 1). Sigmoid colon mass/Liver lesion likely mets/Weight loss and abdominal pain * CT-Abd/Pelvis on admission showed 8.6 cm sigmoid mass with extensive hepatic metastasis. Bilateral renal cysts with large right upper pole renal cyst. Small bilateral pleural effusion and small pericardial effusion. Small hiatal hernia. Possible small diverticulum of the herniated stomach * Repeat Abd/Pel CT (05/30): no ureteral injury; bulk tumor in pelvis and hepatic mets disease; increasing pleural effusion in consolidative changes at the lung base; stable pericardial effusion; severe post-op anasarca. * CEA elevated @ 11.6. (Normal = 0-3.0) * Colonscopy (05/22/17): Non-bleeding external and internal hemorrhoids. 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 At the level of the distal sigmoid colon, contrast slowly traversed through a very thin and irregular channel to the level of the mid sigmoid at the site of the known sigmoid carcinoma. Contrast did not flow freely past this level. Exam was subsequently terminated. These findings were concerning for a near complete obstruction of the bowel lumen from the adjacent obstructing tumor. Consults * GI consult Dr Foster ,appreciated * recommends peripheral hyperalimentation * Started PPN on 06/01/17 with electrolytes - PPN stopped 06/02 due to elevated glucose - Dietary Consult --> help appreciated * Dr Bright oncology consult - Recs appreciated * suggests consulting IR for FNA biopsy of liver lesions to obtain diagnosis * Surgery consult Dr Richard-appreciated * 05/25/17: Patient underwent laparotomy with diverting colostomy and liver biopsy. She was found to have the colonic mass invading the bladder and therefore was not entirely resectable * Liver Biopsy: necrotic tissue * NGT removed on 05/29/17 * Discontinued naqvi 05/31 * IR consulted for FNA biopsy of liver lesions for cancer diagnosis; help appreciated * Scheduled for biopsy today, 05/31; patient is NPO * F/U liver biopsy results Medications: * Dilaudid 0.5mg IV Q4 PRN for pain control 2). Sepsis * resolved leukocytosis, bandemia * procalcitonin 4.15 * Repeat procalcitonin: 1.82 * f/u procalcionin 06/03 * Blood cx (05/28): no growth; urine cx: no growth * Peritoneal fluid stain: negative * Repeat blood cultures (05/29/17): negative * UA: 1+ protein, 1+ blood, 1+ LE, WBC29, RBC32, Occ bacteria * ID consulted, help appreciated * Meropenem 1gm IV Q12 (started 05/30/17) * Flagyl 500mg IV Q8h (started 05/30/17) * CXR (06/01): moderate left, small right pleural effusion; moderate venous congestions; confluent opacities in left mid to lower and right mid to lower lung; cardiomegaly 3). DM 2 * Aspart ISS Q6H Low Dose * Accuchecks -moderate * Lantus 10 units HS * A1c: 8.4 4).Hypertension * Labetolol 100mg Q12H, Enalapril 15 mg Daily, and Cardizem [id number] Daily 5). Anemia * H/H stable * F/U: Iron Sat, Iron/TIBC, Ferritin, and Reticulocyte Count * S/P Transfusion upon admission * Continue to monitor 6). Pericardial effusion/cardiomegaly * Cardiology Consulted (Dr. Portillo) - help appreciated * as per Dr. Portillo, continue medical therapy; effusion is small; LV function is normal * ECHO (05/20/17): Diastolic Dysfunction Grade I-abnormal relaxation pattern, Trace TR and MR 7). Bilateral Renal Cysts * U/S Renal 05/26/17: Right Upper Pole renal cyst measures approximately 10.4x8.3x9.2 cm. Left upper pole renal cyst measures 2.2x1.4x1.6 cm * Will need follow up U/S in 6 months 8). Respiratory Acidosis * Patient was extubated on 05/26/17 and placed on BiPap and Bicarb Drip * Patient no longer on BiPap 9). Pleural Effusion * CXR (06/01): moderate left, small right pleural effusion; moderate venous congestions; confluent opacities in left mid to lower and right mid to lower lung; cardiomegaly * Chest CT: moderate b/l pleural effusion with b/l lower lobe segmental/ subsegmental atelectasis; cardiomegaly with small pericardial effusion; probably widespread hepatic metastasis. * Continue Duonebs Q4 * Pulmonology consulted, Dr. Cherry, help appreciated 10). DVT and GI prophylaxis * Heparin 5000sc Q8 * Dilaudid 0.5 mg IV Q4H PRN Severe Pain * Protonix 40 mg IV Q12H * PT/OT * Incentive spirometry * Palliative care: patient is DNR/DNI as of 05/29/17. Polst form completed. * Diet: Diabetic diet Romero Mckoy ([phone]) Niall Prabhakar ([phone]) as POA/Health Care Proxy Disposition: Liver biopsy results pending. Started PPN with electrolytes on 06/01. <Mamta Kirkland V - Last Filed: 06/03/17 16:07> Objective - Vital Signs/Intake and Output Vital Signs (last 24 hours): Temp Pulse Resp BP Pulse Ox 97.5 F L 89 20 128/76 96 06/03/17 07:00 06/03/17 07:00 06/03/17 07:00 06/03/17 07:00 06/03/17 07:00 Intake and Output: 06/03/17 06/03/17 06:59 18:59 Intake Total 620 240 Output Total 745 1180 Balance -125 -940 - Medications Medications: Current Medications Acetaminophen (Tylenol 160mg/5ml Oral Soln) 160 mg PO Q4H PRN PRN Reason: Pain, moderate (4-7) Albuterol/Ipratropium (Duoneb 3 Mg/0.5 Mg (3 Ml) Ud) 3 ml INH RQ4 [facility] Last Admin: 06/03/17 11:33 Dose: Not Given Diltiazem HCl (Cardizem Cd) 120 mg PO DAILY [facility] Last Admin: 06/03/17 10:17 Dose: 120 mg Heparin Sodium (Porcine) (Heparin) 5,000 units SC Q8 [facility] Last Admin: 06/03/17 13:05 Dose: 5,000 units Hydromorphone HCl (Dilaudid) 0.5 mg IVP Q4H PRN PRN Reason: Pain, moderate (4-7) Last Admin: 06/02/17 19:12 Dose: 0.5 mg Meropenem (Merrem Iv 1 Gm Premix) 50 mls @ 50 mls/hr IVPB Q12H [facility] Last Admin: 06/03/17 10:17 Dose: 50 mls/hr Insulin Aspart (Novolog) 0 unit SC ACHS [facility] PRN Reason: Protocol Last Admin: 06/03/17 13:04 Dose: 6 unit Insulin Glargine (Lantus) 10 unit SC HS [facility] Last Admin: 06/02/17 22:15 Dose: 10 units Labetalol HCl (Trandate) 100 mg PO BID [facility] Last Admin: 06/03/17 10:17 Dose: 100 mg Pantoprazole Sodium (Protonix Ec Tab) 40 mg PO DAILY [facility] Last Admin: 06/03/17 10:17 Dose: 40 mg Saccharomyces Boulardii (Florastor) 250 mg PO DAILY [facility] Last Admin: 06/03/17 10:17 Dose: 250 mg - Labs Labs: 06/03/17 08:06 06/03/17 08:06 PT 14.5 SECONDS (9.7-12.2) H 05/25/17 07:51 INR 1.3 05/25/17 07:51 APTT 31 SECONDS (21-34) 05/25/17 07:51 Attending/Attestation - Attestation I have personally seen and examined this patient.: Yes I have fully participated in the care of the patient.: Yes I have reviewed all pertinent clinical information, including history, physical exam and plan: Yes Notes (Text): Patient seen, examined, and case discussed with day-time resident. Patient seen this afternoon with her son at bedside. Patient reports she feels heaviness of her limbs and feels swollen. Discussed with nursing staff, patient has had 150 cc urine output from 7am-3pm. Discussed with nurse, Patient was about to get bladder scan however voided on the bed. Will continue to monitor urine output. Will order bladder US to rule out any urinary retention. Patient is eating about 25% of her meals. I had discontinued given discrepancies in her electrolytes. Patient started calorie count-->06/02/17. Discussed with ID, will continue Meropenem 1gm IV Q12 (started 05/30/17) and Flagyl IV was discontinued. Procalcitonin has trended down (4.17-->1.82-->0.78) Reviewed CT Chest (06/02/17): moderate bilateral plueral effusion with bilateral lower lobe segmental/subsegmental atelectasis. Cardiomegaly with small pericardial effusion. Probable widespread hepatic metastasis.--->patient will likely need IR paracentesis will follow-up pulmonary. Patient is not hypoxic. Sugars are uncontrolled. Will increase her Lantus from 10 units at night to 20 units. She has required 21 units of coverage and start 3 units of Novolog subqac and continue the coverage. pending IR core biopsy from 05/31/17 for heme-oncology.
--- NOTE | 2017-06-03 05:27 | CP.PCM.PN ---
Subjective - Date & Time of Evaluation Date of Evaluation: 06/03/17 Time of Evaluation: 05:25 - Subjective Subjective: General surgery progress note for Dr. Greg Lemos, PGY-1 Pt S & E at bedside. Pt reports pain well controlled. Feels that her legs are very heavy- would like help being more mobile. Denies N & V, F & C, ab pain. Having output to ostomy- dark brown liquid stool. Drains x [address], one with 50 cc serous output, the other with ~5cc. Objective - Vital Signs/Intake and Output Vital Signs (last 24 hours): Temp Pulse Resp BP Pulse Ox 97.9 F 97 H 20 117/69 90 L 06/02/17 23:27 06/02/17 23:27 06/02/17 23:27 06/02/17 23:27 06/02/17 23:27 Intake and Output: 06/02/17 06/03/17 18:59 06:59 Intake Total 500 Output Total 235 590 Balance -235 -90 - Medications Medications: Current Medications Albuterol/Ipratropium (Duoneb 3 Mg/0.5 Mg (3 Ml) Ud) 3 ml INH RQ4 [facility] Last Admin: 06/03/17 03:15 Dose: Not Given Diltiazem HCl (Cardizem Cd) 120 mg PO DAILY [facility] Last Admin: 06/02/17 10:41 Dose: 120 mg Heparin Sodium (Porcine) (Heparin) 5,000 units SC Q8 [facility] Last Admin: 06/02/17 22:14 Dose: 5,000 units Hydromorphone HCl (Dilaudid) 0.5 mg IVP Q4H PRN PRN Reason: Pain, moderate (4-7) Last Admin: 06/02/17 19:12 Dose: 0.5 mg Metronidazole (Flagyl) 500 mg in 100 mls @ 100 mls/hr IVPB Q8H [facility] Last Admin: 06/02/17 19:18 Dose: 100 mls/hr Meropenem (Merrem Iv 1 Gm Premix) 50 mls @ 50 mls/hr IVPB Q12H [facility] Last Admin: 06/02/17 22:20 Dose: 50 mls/hr Insulin Aspart (Novolog) 0 unit SC ACHS [facility] PRN Reason: Protocol Last Admin: 06/02/17 22:19 Dose: 3 unit Insulin Glargine (Lantus) 10 unit SC HS [facility] Last Admin: 06/02/17 22:15 Dose: 10 units Labetalol HCl (Trandate) 100 mg PO BID [facility] Last Admin: 06/02/17 17:56 Dose: 100 mg Pantoprazole Sodium (Protonix Ec Tab) 40 mg PO DAILY [facility] - Labs Labs: 06/02/17 06:45 06/02/17 06:45 PT 14.5 SECONDS (9.7-12.2) H 05/25/17 07:51 INR 1.3 05/25/17 07:51 APTT 31 SECONDS (21-34) 05/25/17 07:51 - Constitutional Appears: Non-toxic, No Acute Distress - Head Exam Head Exam: ATRAUMATIC, NORMAL INSPECTION, NORMOCEPHALIC - Eye Exam Eye Exam: EOMI, Normal appearance - ENT Exam ENT Exam: Mucous Membranes Moist, Normal Exam - Neck Exam Neck Exam: Full ROM, Normal Inspection - Respiratory Exam Respiratory Exam: NORMAL BREATHING PATTERN - Cardiovascular Exam Cardiovascular Exam: REGULAR RHYTHM, +S1, +S2 - GI/Abdominal Exam GI & Abdominal Exam: Soft. absent: Distended, Tenderness Additional comments: ostomy with large amount of dark brown liquid stool DARRYL x 2 in RLQ, dressings in place- clean/dry/intact - Extremities Exam Extremities Exam: Pedal Edema (bilateral) - Neurological Exam Neurological Exam: Alert, Awake, CN II-XII Intact, Oriented x3 - Psychiatric Exam Psychiatric exam: Normal Affect, Normal Mood - Skin Skin Exam: Dry, Intact, Normal Color, Warm Additional comments: midline abdominal incision with steri-strips in place, no edel, well healed Assessment and Plan - Assessment and Plan (Free Text) Assessment: 86F POD#9 s/p exploratory laparotomy w/diverting colostomy & liver biopsy Plan: DARRYL 1 with 230cc/12H, DARRYL 2 with 295 cc/12H 300 cc UOP Dressing changes PRN continue diabetic soft diet anti-emetics pain control OOBTC Ambulate PT Encourage IS use continue medical mgmt Will DW attending Aminta, PGY-1
[2017-06-03 08:20] LABS: BASO # 0.1 K/uL (0.0-0.2); BASO % 0.6 % (0.0-2.0); EOS % 0.1 % (0.0-4.0); HEMOGLOBIN 9.6 g/dL (11.0-16.0); LYMPH # 1.3 K/uL (1.0-4.3); LYMPH % 8.5 % (20.0-40.0); MEAN CORPUSCULAR HEMOGLOBIN 27.8 pg (27.0-31.0); MEAN CORPUSCULAR HGB CONC 33.5 g/dL (33.0-37.0); MEAN PLATELET VOLUME 9.2 fL (7.2-11.7); MONO # 0.5 K/uL (0.0-0.8); MONO % 3.2 % (0.0-10.0); NEUT # 13.6 K/uL (1.8-7.0); NEUT % 87.6 % (50.0-75.0); PLATELET COUNT 244 K/uL (130-400); RBC 3.46 Mil/uL (3.80-5.20); RED CELL DISTRIBUTION WIDTH 18.7 % (11.5-14.5); WHITE BLOOD COUNT 15.6 K/uL (4.8-10.8)
[2017-06-03 08:30] LABS: ALB/GLOB RATIO 0.8 (1.0-2.1); ALBUMIN 2.1 g/dL (3.5-5.0); ALT/SGPT 19 U/L (9-52); AST/SGOT 15 U/L (14-36); BLOOD UREA NITROGEN 12 mg/dL (7-17); GFR AFRICAN-AMERICAN > 60; GFR NON-AFRICAN AMERICAN > 60; MAGNESIUM 1.8 mg/dL (1.6-2.3)
[2017-06-03] MEDS: (Novolog) Insulin Aspart, Recombinant 100 u/ml 10 ml vial SC SCH ×5 (08:55→22:11)
[2017-06-03] MEDS: diltiaZEM 120 mg/24 Hours CD Cap PO SCH (10:17)
[2017-06-03] MEDS: Pantoprazole 40 mg EC Tab PO SCH (10:17)
[2017-06-03] MEDS: Meropenem IV 1 gm in NS 50 ML IVPB SCH ×2 (10:17→22:40)
[2017-06-03] MEDS: Saccharomyces Boulardi 250 mg Cap PO SCH (10:17)
[2017-06-03 10:38] LABS: BANDS 4 % (0-2); LYMPHOCYTE 7 % (20-40); MONOCYTE 1 % (0-10); NEUTROPHIL 88 % (50-75); TOTAL CELLS COUNTED 100
[2017-06-03 10:39] LABS: PLATELET ESTIMATE NORMAL (NORMAL)
[2017-06-03 10:40] LABS: ANISOCYTOSIS SLIGHT; HYPOCHROMIC SLIGHT; LARGE PLATELETS PRESENT; POIKILOCYTOSIS SLIGHT; TOXIC GRANULATION PRESENT
[2017-06-03 10:41] LABS: OVALOCYTES SLIGHT; TARGET CELLS SLIGHT
--- NOTE | 2017-06-03 18:13 | CP.PCM.PN ---
Subjective - Date & Time of Evaluation Date of Evaluation: 06/03/17 Time of Evaluation: 03:00 - Subjective Subjective: dictated Objective - Vital Signs/Intake and Output Vital Signs (last 24 hours): Temp Pulse Resp BP Pulse Ox 97.2 F L 89 20 120/76 96 06/03/17 15:00 06/03/17 15:00 06/03/17 15:00 06/03/17 15:00 06/03/17 15:00 Intake and Output: 06/03/17 06/03/17 06:59 18:59 Intake Total 620 240 Output Total 745 1180 Balance -125 -940 - Medications Medications: Current Medications Acetaminophen (Tylenol 160mg/5ml Oral Soln) 160 mg PO Q4H PRN PRN Reason: Pain, moderate (4-7) Albuterol/Ipratropium (Duoneb 3 Mg/0.5 Mg (3 Ml) Ud) 3 ml INH RQ4 [facility] Last Admin: 06/03/17 17:43 Dose: Not Given Diltiazem HCl (Cardizem Cd) 120 mg PO DAILY [facility] Last Admin: 06/03/17 10:17 Dose: 120 mg Heparin Sodium (Porcine) (Heparin) 5,000 units SC Q8 [facility] Last Admin: 06/03/17 13:05 Dose: 5,000 units Hydromorphone HCl (Dilaudid) 0.5 mg IVP Q4H PRN PRN Reason: Pain, moderate (4-7) Last Admin: 06/02/17 19:12 Dose: 0.5 mg Meropenem (Merrem Iv 1 Gm Premix) 50 mls @ 50 mls/hr IVPB Q12H [facility] Vancomycin HCl (Vancocin 750mg/D5w 150 Ml) 150 mls @ 100 mls/hr IVPB Q24H [facility] Stop: 06/08/17 18:01 Insulin Aspart (Novolog) 0 unit SC ACHS [facility] PRN Reason: Protocol Last Admin: 06/03/17 13:04 Dose: 6 unit Insulin Aspart (Novolog) 3 unit SC AC [facility] Insulin Glargine (Lantus) 20 unit SC HS [facility] Labetalol HCl (Trandate) 100 mg PO BID [facility] Last Admin: 06/03/17 10:17 Dose: 100 mg Pantoprazole Sodium (Protonix Ec Tab) 40 mg PO DAILY [facility] Last Admin: 06/03/17 10:17 Dose: 40 mg Saccharomyces Boulardii (Florastor) 250 mg PO DAILY [facility] Last Admin: 06/03/17 10:17 Dose: 250 mg - Labs Labs: 06/03/17 08:06 06/03/17 08:06 PT 14.5 SECONDS (9.7-12.2) H 05/25/17 07:51 INR 1.3 05/25/17 07:51 APTT 31 SECONDS (21-34) 05/25/17 07:51
[2017-06-03] MEDS: Vancomycin 750mg/D5W 150 ml 150 ML IVPB SCH (18:28)
[2017-06-03] MEDS ORDERED: Vancomycin 750mg/D5W 150 ml 150 ML IVPB SCH (18:30)
--- NOTE | 2017-06-03 20:09 | CP.PCM.PN ---
Subjective - Date & Time of Evaluation Date of Evaluation: 06/03/17 Time of Evaluation: 16:25 - Subjective Subjective: The patient seen and examined Lying comfortably in no acute distress Afebrile no shortness of breath No chest pain CAT scan of the chest consistent with moderate bilateral effusions Improve nutritional status Thoracentesis if symptomatic Continue present treatment Objective - Vital Signs/Intake and Output Vital Signs (last 24 hours): Temp Pulse Resp BP Pulse Ox 97.2 F L 89 20 116/74 96 06/03/17 15:00 06/03/17 15:00 06/03/17 15:00 06/03/17 18:26 06/03/17 15:00 Intake and Output: 06/03/17 06/04/17 18:59 06:59 Intake Total 240 Output Total 1180 Balance -940 - Medications Medications: Current Medications Acetaminophen (Tylenol 160mg/5ml Oral Soln) 160 mg PO Q4H PRN PRN Reason: Pain, moderate (4-7) Albuterol/Ipratropium (Duoneb 3 Mg/0.5 Mg (3 Ml) Ud) 3 ml INH RQ4 [facility] Last Admin: 06/03/17 19:56 Dose: Not Given Diltiazem HCl (Cardizem Cd) 120 mg PO DAILY [facility] Last Admin: 06/03/17 10:17 Dose: 120 mg Heparin Sodium (Porcine) (Heparin) 5,000 units SC Q8 [facility] Last Admin: 06/03/17 13:05 Dose: 5,000 units Hydromorphone HCl (Dilaudid) 0.5 mg IVP Q4H PRN PRN Reason: Pain, moderate (4-7) Last Admin: 06/02/17 19:12 Dose: 0.5 mg Meropenem (Merrem Iv 1 Gm Premix) 50 mls @ 50 mls/hr IVPB Q12H [facility] Vancomycin HCl (Vancocin 750mg/D5w 150 Ml) 150 mls @ 100 mls/hr IVPB Q24H [facility] Stop: 06/08/17 18:01 Last Admin: 06/03/17 18:28 Dose: 100 mls/hr Insulin Aspart (Novolog) 0 unit SC ACHS [facility] PRN Reason: Protocol Last Admin: 06/03/17 17:30 Dose: 4 unit Insulin Aspart (Novolog) 3 unit SC AC [facility] Last Admin: 06/03/17 17:30 Dose: 3 unit Insulin Glargine (Lantus) 20 unit SC HS [facility] Labetalol HCl (Trandate) 100 mg PO BID [facility] Last Admin: 06/03/17 18:21 Dose: 100 mg Pantoprazole Sodium (Protonix Ec Tab) 40 mg PO DAILY [facility] Last Admin: 06/03/17 10:17 Dose: 40 mg Saccharomyces Boulardii (Florastor) 250 mg PO DAILY [facility] Last Admin: 06/03/17 10:17 Dose: 250 mg - Labs Labs: 06/03/17 08:06 06/03/17 08:06 PT 14.5 SECONDS (9.7-12.2) H 05/25/17 07:51 INR 1.3 05/25/17 07:51 APTT 31 SECONDS (21-34) 05/25/17 07:51
[2017-06-03] MEDS: Acetaminophen 160 mg/5 ml UD PO PRN (20:34)
[2017-06-03] MEDS: (Lantus) Insulin Glargine, Recombinant SC SCH (22:13)
--- NOTE | 2017-06-03 22:34 | PN ---
DATE: SUBJECTIVE: Patient is awake. She is very frail. Her son was at the bedside. She states she ate last night well and she is trying to eat, but she gets full easy. PHYSICAL EXAMINATION VITAL SIGNS: T-max is 97.2, pulse is 89, blood pressure 120/76, respirations at 20. HEENT: Head is atraumatic. NECK: Supple. LUNGS: Have decreased breath sounds on both bases, right more than left. HEART: S1, S2 is regular. ABDOMEN: Has a surgical scar, which appears to be unremarkable. She still has a DARRYL drain. EXTREMITIES: Lower extremities have bilateral 2+ edema. LABORATORY DATA: White count is 15.6 today, it was normal yesterday. Hemoglobin 9.6, hematocrit 28.7, platelet count is 244. She had chest CT. Her sodium also is low at 124. CAT scan was done, which showed right pleural effusion. She also has bulky tumor in the abdomen, which was nondissectable and right now, her white count has increased. The resident has ordered for C. diff. I saw the calcitonin level has gone down. We will add vancomycin once a day for now to cover for the lungs and she does also have sigmoid mass and multiple hepatic lesions and the patient will continue to be on Merrem. We will discontinue Flagyl as her appetite remains poor at this time and we will follow. Since she has this tumor and liver mets, prognosis remains poor. Liborio Maravilla MD
[2017-06-03] MEDS ORDERED: Meropenem 1 GM in Sodium Chloride 0.9% 100 ML IVPB SCH (23:00)
[2017-06-04] MEDS: Albuterol-Ipratrop 3 mg / 0.5 (3 ml) UD INH SCH ×6 (00:48→19:00)
--- NOTE | 2017-06-04 03:31 | CP.PCM.PN ---
<Angela Barraza - Last Filed: 06/04/17 03:27> Subjective - Date & Time of Evaluation Date of Evaluation: 06/04/17 Time of Evaluation: 03:27 - Subjective Subjective: Medicine progress note for Dr. Kirkland's service Patient was seen and examined at bedside in no acute distress. Patient complains of heavy arms and legs "feels like iron". She still states she is tired of being of bed. Patient denies chest pain, shortness of breath, abdominal pain, nausea, vomiting, fevers, and headaches. Objective - Vital Signs/Intake and Output Vital Signs (last 24 hours): Temp Pulse Resp BP Pulse Ox 97.8 F 85 20 114/71 96 06/03/17 23:25 06/03/17 23:25 06/03/17 23:25 06/03/17 23:25 06/03/17 23:25 Intake and Output: 06/03/17 06/04/17 18:59 06:59 Intake Total 240 440 Output Total 1180 210 Balance -940 230 - Medications Medications: Current Medications Acetaminophen (Tylenol 160mg/5ml Oral Soln) 160 mg PO Q4H PRN PRN Reason: Pain, moderate (4-7) Last Admin: 06/03/17 20:34 Dose: 160 mg Albuterol/Ipratropium (Duoneb 3 Mg/0.5 Mg (3 Ml) Ud) 3 ml INH RQ4 [facility] Last Admin: 06/04/17 00:48 Dose: 3 ml Diltiazem HCl (Cardizem Cd) 120 mg PO DAILY [facility] Last Admin: 06/03/17 10:17 Dose: 120 mg Heparin Sodium (Porcine) (Heparin) 5,000 units SC Q8 [facility] Last Admin: 06/03/17 22:16 Dose: 5,000 units Hydromorphone HCl (Dilaudid) 0.5 mg IVP Q4H PRN PRN Reason: Pain, moderate (4-7) Last Admin: 06/02/17 19:12 Dose: 0.5 mg Meropenem (Merrem Iv 1 Gm Premix) 50 mls @ 50 mls/hr IVPB Q12H [facility] Last Admin: 06/03/17 22:40 Dose: 50 mls/hr Vancomycin HCl (Vancocin 750mg/D5w 150 Ml) 150 mls @ 100 mls/hr IVPB Q24H [facility] Stop: 06/08/17 18:01 Last Admin: 06/03/17 18:28 Dose: 100 mls/hr Insulin Aspart (Novolog) 0 unit SC ACHS [facility] PRN Reason: Protocol Last Admin: 06/03/17 22:11 Dose: 2 unit Insulin Aspart (Novolog) 3 unit SC AC [facility] Last Admin: 06/03/17 17:30 Dose: 3 unit Insulin Glargine (Lantus) 20 unit SC HS [facility] Last Admin: 06/03/17 22:13 Dose: 20 units Labetalol HCl (Trandate) 100 mg PO BID [facility] Last Admin: 06/03/17 18:21 Dose: 100 mg Pantoprazole Sodium (Protonix Ec Tab) 40 mg PO DAILY [facility] Last Admin: 06/03/17 10:17 Dose: 40 mg Saccharomyces Boulardii (Florastor) 250 mg PO DAILY [facility] Last Admin: 06/03/17 10:17 Dose: 250 mg - Labs Labs: 06/03/17 08:06 06/03/17 08:06 PT 14.5 SECONDS (9.7-12.2) H 05/25/17 07:51 INR 1.3 05/25/17 07:51 APTT 31 SECONDS (21-34) 05/25/17 07:51 - Additional Findings Additional findings: - Constitutional Appears: Non-toxic, No Acute Distress - Head Exam Head Exam: ATRAUMATIC, NORMAL INSPECTION - Eye Exam Eye Exam: EOMI - ENT Exam ENT Exam: Mucous Membranes Moist - Respiratory Exam Respiratory Exam: Rales, decreased breath sounds, NORMAL BREATHING PATTERN. absent: Rhonchi, Wheezes, Respiratory Distress - Cardiovascular Exam Cardiovascular Exam: REGULAR RHYTHM, +S1, +S2 - GI/Abdominal Exam GI & Abdominal Exam: Soft, Tenderness (s/p lapartomy, colostomy- with deep palpation), Diminished Bowel Sounds, Normal Bowel Sounds. absent: Distended, Firm Additional comments: Dressings dry,intact, clean; left colostomy bag in place- formed stool present. - Extremities Exam Extremities Exam: Pitting edema of UE&LE bilaterally. absent: Calf Tenderness, Tenderness - Neurological Exam Neurological Exam: Alert, Awake, Oriented x3 - Psychiatric Exam Psychiatric exam: Normal Affect, Normal Mood - Skin Skin Exam: Dry, Normal Color, Warm Assessment and Plan - Assessment and Plan (Free Text) Plan: 1). Sigmoid colon mass/Liver lesion likely mets/Weight loss and abdominal pain * CT-Abd/Pelvis on admission showed 8.6 cm sigmoid mass with extensive hepatic metastasis. Bilateral renal cysts with large right upper pole renal cyst. Small bilateral pleural effusion and small pericardial effusion. Small hiatal hernia. Possible small diverticulum of the herniated stomach * Repeat Abd/Pel CT (05/30): no ureteral injury; bulk tumor in pelvis and hepatic mets disease; increasing pleural effusion in consolidative changes at the lung base; stable pericardial effusion; severe post-op anasarca. * CEA elevated @ 11.6. (Normal = 0-3.0) * Colonscopy (05/22/17): Non-bleeding external and internal hemorrhoids. 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 At the level of the distal sigmoid colon, contrast slowly traversed through a very thin and irregular channel to the level of the mid sigmoid at the site of the known sigmoid carcinoma. Contrast did not flow freely past this level. Exam was subsequently terminated. These findings were concerning for a near complete obstruction of the bowel lumen from the adjacent obstructing tumor. * Venous dopplers UE&LE b/l ordered due to edema and cancer: f/u results * Calorie count and monitoring Consults * GI consult Dr Foster ,appreciated * recommends peripheral hyperalimentation * Started PPN on 06/01/17 with electrolytes - PPN stopped 06/02 due to elevated glucose - Dietary Consult --> help appreciated * Dr Bright oncology consult - Recs appreciated * suggests consulting IR for FNA biopsy of liver lesions to obtain diagnosis * Surgery consult Dr Richard-appreciated * 05/25/17: Patient underwent laparotomy with diverting colostomy and liver biopsy. She was found to have the colonic mass invading the bladder and therefore was not entirely resectable * Liver Biopsy: necrotic tissue * NGT removed on 05/29/17 * Discontinued naqvi 05/31 * IR consulted for FNA biopsy of liver lesions for cancer diagnosis; help appreciated * Scheduled for biopsy today, 05/31; patient is NPO * F/U liver biopsy results Medications: * HOLD- Dilaudid 0.5mg IV Q4 PRN for pain control * Tylenol PRN for pain 2). Sepsis * leukocytosis, bandemia * procalcitonin trending down: 4.15 --> 1.82--> 0.78 * Blood cx (05/28): no growth; urine cx: no growth * Peritoneal fluid stain: negative * Repeat blood cultures (05/29/17): negative * UA: 1+ protein, 1+ blood, 1+ LE, WBC29, RBC32, Occ bacteria * ID consulted, help appreciated * Meropenem 1gm IV Q12 (started 05/30/17) * Vanco 750mg IV Q24 (started 06/03/17 for 5days) * Discontinued Flagyl 500mg IV Q8h (started 05/30/17) * CXR (06/01): moderate left, small right pleural effusion; moderate venous congestions; confluent opacities in left mid to lower and right mid to lower lung; cardiomegaly 3). DM 2 * Aspart ISS Q6H Low Dose * Accuchecks -moderate * Lantus 20 units HS (increased from 10 units on 06/03) * Novolog 3 units SCqAC * A1c: 8.4 4).Hypertension * Labetolol 100mg Q12H, Enalapril 15 mg Daily, and Cardizem [id number] Daily 5). Anemia * H/H stable * F/U: Iron Sat, Iron/TIBC, Ferritin, and Reticulocyte Count * S/P Transfusion upon admission * Continue to monitor 6). Pericardial effusion/cardiomegaly * Cardiology Consulted (Dr. Portillo) - help appreciated * as per Dr. Portillo, continue medical therapy; effusion is small; LV function is normal * ECHO (05/20/17): Diastolic Dysfunction Grade I-abnormal relaxation pattern, Trace TR and MR 7). Bilateral Renal Cysts * U/S Renal 05/26/17: Right Upper Pole renal cyst measures approximately 10.4x8.3x9.2 cm. Left upper pole renal cyst measures 2.2x1.4x1.6 cm * Will need follow up U/S in 6 months 8). Respiratory Acidosis * Patient was extubated on 05/26/17 and placed on BiPap and Bicarb Drip * Patient no longer on BiPap or bicarb drip 9). Pleural Effusion * CXR (06/01): moderate left, small right pleural effusion; moderate venous congestions; confluent opacities in left mid to lower and right mid to lower lung; cardiomegaly * Chest CT: moderate b/l pleural effusion with b/l lower lobe segmental/ subsegmental atelectasis; cardiomegaly with small pericardial effusion; probably widespread hepatic metastasis. * Continue Duonebs Q4 * Pulmonology consulted, Dr. Cherry, help appreciated * Possible therapeutic thoracentesis for pleural effusions; f/u fluid analysis 10). DVT and GI prophylaxis * Heparin 5000sc Q8 * Dilaudid 0.5 mg IV Q4H PRN Severe Pain * Protonix 40 mg IV Q12H * PT/OT * Incentive spirometry * Palliative care: patient is DNR/DNI as of 05/29/17. Polst form completed. * Diet: Diabetic diet Son Dominick Mckoy ([phone]) Nializa Prabhakar ([phone]) as POA/Health Care Proxy Disposition: Liver biopsy results pending. Started PPN with electrolytes on 06/01. <Mamta Kirkland V - Last Filed: 06/04/17 07:50> Objective - Vital Signs/Intake and Output Vital Signs (last 24 hours): Temp Pulse Resp BP Pulse Ox 97.8 F 85 20 114/71 96 06/03/17 23:25 06/03/17 23:25 06/03/17 23:25 06/03/17 23:25 06/03/17 23:25 Intake and Output: 06/04/17 06/04/17 06:59 18:59 Intake Total 470 Output Total 420 Balance 50 - Medications Medications: Current Medications Acetaminophen (Tylenol 160mg/5ml Oral Soln) 160 mg PO Q4H PRN PRN Reason: Pain, moderate (4-7) Last Admin: 06/03/17 20:34 Dose: 160 mg Albuterol/Ipratropium (Duoneb 3 Mg/0.5 Mg (3 Ml) Ud) 3 ml INH RQ4 [facility] Last Admin: 06/04/17 04:22 Dose: Not Given Diltiazem HCl (Cardizem Cd) 120 mg PO DAILY [facility] Last Admin: 06/03/17 10:17 Dose: 120 mg Heparin Sodium (Porcine) (Heparin) 5,000 units SC Q8 [facility] Last Admin: 06/04/17 05:59 Dose: 5,000 units Hydromorphone HCl (Dilaudid) 0.5 mg IVP Q4H PRN PRN Reason: Pain, moderate (4-7) Last Admin: 06/02/17 19:12 Dose: 0.5 mg Meropenem (Merrem Iv 1 Gm Premix) 50 mls @ 50 mls/hr IVPB Q12H [facility] Last Admin: 06/03/17 22:40 Dose: 50 mls/hr Vancomycin HCl (Vancocin 750mg/D5w 150 Ml) 150 mls @ 100 mls/hr IVPB Q24H [facility] Stop: 06/08/17 18:01 Last Admin: 06/03/17 18:28 Dose: 100 mls/hr Sodium Chloride (Sodium Chloride 0.9%) 500 mls @ 1,000 mls/hr IV .Q30M [facility] Stop: 06/04/17 08:15 Insulin Aspart (Novolog) 0 unit SC ACHS [facility] PRN Reason: Protocol Last Admin: 06/03/17 22:11 Dose: 2 unit Insulin Aspart (Novolog) 3 unit SC AC [facility] Last Admin: 06/03/17 17:30 Dose: 3 unit Insulin Glargine (Lantus) 20 unit SC HS [facility] Last Admin: 06/03/17 22:13 Dose: 20 units Labetalol HCl (Trandate) 100 mg PO BID [facility] Last Admin: 06/03/17 18:21 Dose: 100 mg Pantoprazole Sodium (Protonix Ec Tab) 40 mg PO DAILY [facility] Last Admin: 06/03/17 10:17 Dose: 40 mg Saccharomyces Boulardii (Florastor) 250 mg PO DAILY [facility] Last Admin: 06/03/17 10:17 Dose: 250 mg - Labs Labs: 06/03/17 08:06 06/03/17 08:06 PT 14.5 SECONDS (9.7-12.2) H 05/25/17 07:51 INR 1.3 05/25/17 07:51 APTT 31 SECONDS (21-34) 05/25/17 07:51 Attending/Attestation - Attestation I have personally seen and examined this patient.: Yes I have fully participated in the care of the patient.: Yes I have reviewed all pertinent clinical information, including history, physical exam and plan: Yes Notes (Text): Patient seen, examined, and case discussed with day-time resident. Patient seen this morning. Patient was unable to sleep. Patient reports she feels heaviness of her limbs and feels swollen. Patient is frustrated. Patient is encouraged to try her best. Discussed with AM nurse Layo, apparently no urine output overnight; I have put in for 500 cc bolus and insert naqvi to monitor urine output. Pending bladder US to rule out any urinary retention. Patient is eating about 25% of her meals. I had discontinued given discrepancies in her electrolytes. Will start supplements. Patient started calorie count-->06/02/17. Discussed with ID, will continue Meropenem 1gm IV Q12 (started 05/30/17) and Flagyl IV was discontinued given lack of appetitie. Procalcitonin has trended down (4.17-->1.82-->0.78) since yesterday. Reviewed CT Chest (06/02/17): moderate bilateral plueral effusion with bilateral lower lobe segmental/subsegmental atelectasis. Cardiomegaly with small pericardial effusion. Probable widespread hepatic metastasis.--->patient will likely need IR paracentesis will follow-up pulmonary. Patient is not hypoxic. Sugar this morning has improved since Lantus 20 units overnight. Will need to continue to monitor. Pending IR core biopsy from 05/31/17 for heme-oncology.
[2017-06-04] MEDS ORDERED: Sodium Chloride 0.9% 500 ML IV ONE (07:46)
--- NOTE | 2017-06-04 08:05 | CP.PCM.PN ---
Subjective - Date & Time of Evaluation Date of Evaluation: 06/04/17 Time of Evaluation: 08:03 - Subjective Subjective: Surgery Pt s&e. Ambulates with help. Tolerating diet. Denies F/C?N/V/D/Cp/SOB. Stoma has output. Seen pahtologist regarding liver bx w surgical attending. 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 Objective - Vital Signs/Intake and Output Vital Signs (last 24 hours): Temp Pulse Resp BP Pulse Ox 97.8 F 85 20 114/71 96 06/03/17 23:25 06/03/17 23:25 06/03/17 23:25 06/03/17 23:25 06/03/17 23:25 Intake and Output: 06/04/17 06/04/17 06:59 18:59 Intake Total 470 Output Total 420 Balance 50 - Medications Medications: Current Medications Acetaminophen (Tylenol 160mg/5ml Oral Soln) 160 mg PO Q4H PRN PRN Reason: Pain, moderate (4-7) Last Admin: 06/03/17 20:34 Dose: 160 mg Albuterol/Ipratropium (Duoneb 3 Mg/0.5 Mg (3 Ml) Ud) 3 ml INH RQ4 [facility] Last Admin: 06/04/17 04:22 Dose: Not Given Diltiazem HCl (Cardizem Cd) 120 mg PO DAILY [facility] Last Admin: 06/03/17 10:17 Dose: 120 mg Heparin Sodium (Porcine) (Heparin) 5,000 units SC Q8 [facility] Last Admin: 06/04/17 05:59 Dose: 5,000 units Hydromorphone HCl (Dilaudid) 0.5 mg IVP Q4H PRN PRN Reason: Pain, moderate (4-7) Last Admin: 06/02/17 19:12 Dose: 0.5 mg Meropenem (Merrem Iv 1 Gm Premix) 50 mls @ 50 mls/hr IVPB Q12H [facility] Last Admin: 06/03/17 22:40 Dose: 50 mls/hr Vancomycin HCl (Vancocin 750mg/D5w 150 Ml) 150 mls @ 100 mls/hr IVPB Q24H [facility] Stop: 06/08/17 18:01 Last Admin: 06/03/17 18:28 Dose: 100 mls/hr Sodium Chloride (Sodium Chloride 0.9%) 500 mls @ 1,000 mls/hr IV .Q30M [facility] Stop: 06/04/17 08:15 Insulin Aspart (Novolog) 0 unit SC ACHS [facility] PRN Reason: Protocol Last Admin: 06/03/17 22:11 Dose: 2 unit Insulin Aspart (Novolog) 3 unit SC AC [facility] Last Admin: 06/03/17 17:30 Dose: 3 unit Insulin Glargine (Lantus) 20 unit SC HS [facility] Last Admin: 06/03/17 22:13 Dose: 20 units Labetalol HCl (Trandate) 100 mg PO BID [facility] Last Admin: 06/03/17 18:21 Dose: 100 mg Pantoprazole Sodium (Protonix Ec Tab) 40 mg PO DAILY [facility] Last Admin: 06/03/17 10:17 Dose: 40 mg Saccharomyces Boulardii (Florastor) 250 mg PO DAILY [facility] Last Admin: 06/03/17 10:17 Dose: 250 mg - Labs Labs: 06/03/17 08:06 06/03/17 08:06 PT 14.5 SECONDS (9.7-12.2) H 05/25/17 07:51 INR 1.3 05/25/17 07:51 APTT 31 SECONDS (21-34) 05/25/17 07:51 - Constitutional Appears: No Acute Distress - Head Exam Head Exam: ATRAUMATIC, NORMAL INSPECTION, NORMOCEPHALIC - Eye Exam Eye Exam: EOMI, Normal appearance, PERRL Pupil Exam: NORMAL ACCOMODATION, PERRL - ENT Exam ENT Exam: Mucous Membranes Moist, Normal Exam - Neck Exam Neck Exam: Full ROM, Normal Inspection. absent: Lymphadenopathy - Respiratory Exam Respiratory Exam: Clear to Ausculation Bilateral, NORMAL BREATHING PATTERN - Cardiovascular Exam Cardiovascular Exam: REGULAR RHYTHM, +S1, +S2. absent: Murmur - GI/Abdominal Exam GI & Abdominal Exam: Soft, Normal Bowel Sounds. absent: Distended, Firm, Guarding, Tenderness Additional comments: stoma : fecal output. - Exam Exam: NORMAL INSPECTION - Extremities Exam Extremities Exam: Full ROM, Normal Capillary Refill, Normal Inspection. absent : Joint Swelling, Pedal Edema - Back Exam Back Exam: NORMAL INSPECTION - Neurological Exam Neurological Exam: Alert, Awake, CN II-XII Intact, Normal Gait, Oriented x3 - Psychiatric Exam Psychiatric exam: Normal Affect, Normal Mood - Skin Skin Exam: Dry, Intact, Normal Color, Warm Assessment and Plan - Assessment and Plan (Free Text) Assessment: 86F POD#10 s/p exploratory laparotomy w/diverting colostomy & liver biopsy Plan: DARRYL 1 with 600cc 1000 cc UOP Dressing changes PRN continue diabetic soft diet anti-emetics pain control OOBTC Ambulate Need aggresive PT Encourage IS use continue medical mgmt DW attending
[2017-06-04] MEDS: (Novolog) Insulin Aspart, Recombinant 100 u/ml 10 ml vial SC SCH ×7 (08:11→21:41)
[2017-06-04 08:29] LABS: BASO % 0.1 % (0.0-2.0); EOS # 0.1 K/uL (0.0-0.7); EOS % 0.5 % (0.0-4.0); HEMOGLOBIN 9.3 g/dL (11.0-16.0); LYMPH # 1.2 K/uL (1.0-4.3); LYMPH % 8.6 % (20.0-40.0); MEAN CELL VOLUME 82.9 fL (81.0-99.0); MEAN CORPUSCULAR HEMOGLOBIN 27.8 pg (27.0-31.0); MEAN CORPUSCULAR HGB CONC 33.5 g/dL (33.0-37.0); MEAN PLATELET VOLUME 9.1 fL (7.2-11.7); MONO # 0.6 K/uL (0.0-0.8); MONO % 4.4 % (0.0-10.0); NEUT # 12.1 K/uL (1.8-7.0); NEUT % 86.4 % (50.0-75.0); PLATELET COUNT 269 K/uL (130-400); RBC 3.36 Mil/uL (3.80-5.20); RED CELL DISTRIBUTION WIDTH 18.1 % (11.5-14.5); WHITE BLOOD COUNT 14.1 K/uL (4.8-10.8)
[2017-06-04 09:03] LABS: ALB/GLOB RATIO 0.8 (1.0-2.1); ALBUMIN 2.2 g/dL (3.5-5.0); ALT/SGPT 19 U/L (9-52); AST/SGOT 19 U/L (14-36); BLOOD UREA NITROGEN 12 mg/dL (7-17); CALCIUM 7.2 mg/dl (8.6-10.4); GFR AFRICAN-AMERICAN > 60; GFR NON-AFRICAN AMERICAN > 60; MAGNESIUM 1.7 mg/dL (1.6-2.3)
[2017-06-04] MEDS ORDERED: Potassium Chloride 20 mEq ER Tab PO ONE ×3 (09:53→13:45)
[2017-06-04 10:03] LABS: BANDS 2 % (0-2); BASOPHIL 1 % (0-2); EOSINOPHIL 7 % (0-4); LYMPHOCYTE 8 % (20-40); MONOCYTE 3 % (0-10); NEUTROPHIL 79 % (50-75); TOTAL CELLS COUNTED 100
[2017-06-04 10:04] LABS: PLATELET ESTIMATE NORMAL (NORMAL)
[2017-06-04 10:05] LABS: ANISOCYTOSIS SLIGHT
[2017-06-04 10:06] LABS: LARGE PLATELETS PRESENT
[2017-06-04 10:07] LABS: TARGET CELLS SLIGHT
[2017-06-04 10:08] LABS: OVALOCYTES SLIGHT
[2017-06-04] MEDS: Meropenem IV 1 gm in NS 50 ML IVPB SCH (10:11)
[2017-06-04] MEDS: diltiaZEM 120 mg/24 Hours CD Cap PO SCH (10:12)
[2017-06-04] MEDS: Saccharomyces Boulardi 250 mg Cap PO SCH (10:12)
[2017-06-04] MEDS: Pantoprazole 40 mg EC Tab PO SCH (10:12)
[2017-06-04] MEDS: Acetaminophen 160 mg/5 ml UD PO PRN (10:26)
[2017-06-04] MEDS ORDERED: Oxycodone/Acetaminophen 5/325 mg Tab PO PRN (11:09)
[2017-06-04] MEDS ORDERED: Albumin Human 5% (12.5 gm/250 ml) IV SCH (11:53)
[2017-06-04] MEDS: Albumin Human 5% (12.5 gm/250 ml) IV SCH (12:26)
[2017-06-04] MEDS: Sodium Chloride 0.9% 1,000 ML IV SCH (14:18)
--- NOTE | 2017-06-04 15:21 | PN ---
DATE: LOCATION: [facility], bed A. SUBJECTIVE: This is an 86-year-old female, seen and examined in rounds without significant clinical changes, was functioning decently for midcolostomy tube with traces of brownish dark fecal material. The patient denied any chest pain, significant shortness of breath, palpitation. The entire chart is reviewed, including but not limited to the most recent lab and radiology study results, current and previous medication lists, current and previous medical events and the latest white blood cells is 15.6 with low hemoglobin of 9.6, low hematocrit 28.7 with normal platelet count with low sodium of 124, low creatinine of 0.6 with CO2 content of 31 indicative of respiratory alkalosis with low calcium of 7.0, low phosphorus 1.9, low albumin 2.1 with low total protein 4.9. Today's blood glucose level reported to be 206. The most recent chest CAT scan done on 06/02/17 indicative of moderate bilateral pleural effusion with bilateral lower lobe atelectasis with cardiomegaly and evidence of small pericardial effusion, was probable wide spread of the hepatic metastatic lesions. Case discussed at length with staff. PHYSICAL EXAMINATION: GENERAL: An 86-year-old female in state of DNR and DNI, appeared to be somewhat more awake, alert, mildly cachectic. VITAL SIGNS: Afebrile with pulse of 82, respiratory rate 20-22, blood pressure 120/74. HEENT: Showed pale dry oral mucous membrane. Nonicteric sclerae. LUNGS: Scattered crepitation with decreased air entry at bases. HEART: Positive S1 and S2. ABDOMEN: Soft. Slight generalized tenderness with clean dressing. Colostomy tube is in place. No mass or organomegaly. EXTREMITIES: Lower extremities, mild edematous changes. No clubbing or cyanosis. NEUROLOGIC: No reported new neurological deficits, sensory or motor and no reported new focal deficits. Peripheral pulses are present bilaterally, but decreased. The patient tolerated oral intake somewhat more than before, but not adequate, ambulatory with help, without reported nausea, vomiting. Significant complaint of shortness of breath or chest pain. IMPRESSION: 1. Left-sided colon cancer with metastatic lesion to the liver. 2. Pericardial effusion, bilateral pleural effusion with atelectasis. 3. Status post diverting colostomy. 4. Anemia secondary to above. 5. Known history of diabetes mellitus, hypertension with recently diagnosed bilateral large renal cyst. SUGGESTIONS: 1. Continue current management. 2. Adjust oral intake. 3. Correct any underlying electrolyte imbalance. The patient still has hyponatremia, hypophosphatemia and hypocalcemia. 4. Peripheral hyperalimentation to be offered. 5. Further recommendation to follow. Sp Leblanc MD
[2017-06-04 15:40] LABS: SQUAMOUS EPITHIAL 1 /hpf (0-5); URINE BACTERIA OCC (<OCC); URINE BILIRUBIN NEGATIVE (NEGATIVE); URINE BLOOD NEGATIVE (NEGATIVE); URINE CLARITY Hazy (Clear); URINE COLOR Amber (YELLOW); URINE GLUCOSE (UA) NORMAL (Normal); URINE LEUKOCYTE ESTERASE 2+ Leu/uL (Negative); URINE NITRATE NEGATIVE (NEGATIVE); URINE PROTEIN 1+ mg/dL (NEGATIVE)
[2017-06-04] MEDS: Vancomycin 750mg/D5W 150 ml 150 ML IVPB SCH (17:30)
[2017-06-04] MEDS: (Lantus) Insulin Glargine, Recombinant SC SCH (21:52)
[2017-06-04] MEDS: Meropenem 1 GM in Sodium Chloride 0.9% 100 ML IVPB SCH (22:22)
--- NOTE | 2017-06-04 22:46 | CP.PCM.PN ---
Subjective - Date & Time of Evaluation Date of Evaluation: 06/03/17 Time of Evaluation: 18:00 - Subjective Subjective: No complaints. Objective - Vital Signs/Intake and Output Vital Signs (last 24 hours): Temp Pulse Resp BP Pulse Ox 97 F L 88 20 151/73 H 96 06/04/17 15:00 06/04/17 15:00 06/04/17 15:00 06/04/17 15:00 06/04/17 15:00 Intake and Output: 06/04/17 06/05/17 18:59 06:59 Intake Total 1055 Output Total 355 575 Balance 700 -575 - Medications Medications: Current Medications Acetaminophen (Tylenol 160mg/5ml Oral Soln) 160 mg PO Q4H PRN PRN Reason: Pain, moderate (4-7) Last Admin: 06/04/17 10:26 Dose: 160 mg Albumin Human (Albumin Human 5% (12.5 Gm/250 Ml)) 12.5 gm IV DAILY [facility] Stop: 06/07/17 10:01 Last Admin: 06/04/17 12:26 Dose: 12.5 gm Albuterol/Ipratropium (Duoneb 3 Mg/0.5 Mg (3 Ml) Ud) 3 ml INH RQ4 [facility] Last Admin: 06/04/17 19:00 Dose: Not Given Diltiazem HCl (Cardizem Cd) 120 mg PO DAILY [facility] Last Admin: 06/04/17 10:12 Dose: 120 mg Heparin Sodium (Porcine) (Heparin) 5,000 units SC Q8 [facility] Last Admin: 06/04/17 21:52 Dose: 5,000 units Vancomycin HCl (Vancocin 750mg/D5w 150 Ml) 150 mls @ 100 mls/hr IVPB Q24H [facility] Stop: 06/08/17 18:01 Last Admin: 06/04/17 17:30 Dose: 100 mls/hr Sodium Chloride (Sodium Chloride 0.9%) 1,000 mls @ 100 mls/hr IV .Q10H [facility] Last Admin: 06/04/17 14:18 Dose: 100 mls/hr Meropenem 1 gm/ Sodium (Chloride) 100 mls @ 50 mls/hr IVPB Q12H [facility] Last Admin: 06/04/17 22:22 Dose: 50 mls/hr Insulin Aspart (Novolog) 0 unit SC ACHS [facility] PRN Reason: Protocol Last Admin: 06/04/17 21:41 Dose: Not Given Insulin Aspart (Novolog) 3 unit SC AC [facility] Last Admin: 06/04/17 17:29 Dose: 3 unit Insulin Glargine (Lantus) 20 unit SC HS [facility] Last Admin: 06/04/17 21:52 Dose: 20 units Labetalol HCl (Trandate) 100 mg PO BID [facility] Last Admin: 06/04/17 17:29 Dose: 100 mg Oxycodone/Acetaminophen (Percocet 5/325 Mg Tab) 1 tab PO Q6H PRN PRN Reason: Pain, severe (8-10) Stop: 06/07/17 11:10 Pantoprazole Sodium (Protonix Ec Tab) 40 mg PO DAILY [facility] Last Admin: 06/04/17 10:12 Dose: 40 mg Saccharomyces Boulardii (Florastor) 250 mg PO DAILY [facility] Last Admin: 06/04/17 10:12 Dose: 250 mg - Labs Labs: 06/04/17 08:16 06/04/17 08:16 PT 14.5 SECONDS (9.7-12.2) H 05/25/17 07:51 INR 1.3 05/25/17 07:51 APTT 31 SECONDS (21-34) 05/25/17 07:51 - Head Exam Head Exam: ATRAUMATIC - Eye Exam Eye Exam: Normal appearance - ENT Exam ENT Exam: Mucous Membranes Dry - Respiratory Exam Respiratory Exam: Decreased Breath Sounds - Cardiovascular Exam Cardiovascular Exam: +S1, +S2 - GI/Abdominal Exam GI & Abdominal Exam: Normal Bowel Sounds - Extremities Exam Extremities Exam: Normal Inspection Assessment and Plan (1) Colonic mass Assessment & Plan: f/u recent core biopsy of liver ? metastatic colon cancer further treatment recommendations based on pathology Status: Acute (2) Liver lesion Status: Acute (3) Anemia Status: Acute (4) Coagulopathy Status: Acute
[2017-06-05] MEDS: Sodium Chloride 0.9% 1,000 ML IV SCH ×3 (00:15→19:14)
[2017-06-05] MEDS: Albuterol-Ipratrop 3 mg / 0.5 (3 ml) UD INH SCH ×6 (00:20→20:19)
[2017-06-05] MEDS ORDERED: Dextrose 50% SYRINGE Inj (50 ml) IV STA ×2 (03:38→06:16)
[2017-06-05] MEDS ORDERED: Dextrose 50% VIAL Inj (50 ml) IV ONE ×2 (03:45→06:22)
[2017-06-05 07:46] LABS: EOS % 0.1 % (0.0-4.0); HEMOGLOBIN 9.1 g/dL (11.0-16.0); LYMPH # 0.9 K/uL (1.0-4.3); LYMPH % 6.6 % (20.0-40.0); MEAN CELL VOLUME 83.6 fL (81.0-99.0); MEAN CORPUSCULAR HEMOGLOBIN 27.5 pg (27.0-31.0); MEAN CORPUSCULAR HGB CONC 32.8 g/dL (33.0-37.0); MONO # 0.6 K/uL (0.0-0.8); MONO % 4.8 % (0.0-10.0); NEUT # 11.7 K/uL (1.8-7.0); NEUT % 88.5 % (50.0-75.0); PLATELET COUNT 325 K/uL (130-400); RED CELL DISTRIBUTION WIDTH 18.8 % (11.5-14.5); WHITE BLOOD COUNT 13.2 K/uL (4.8-10.8)
[2017-06-05 07:53] LABS: INR 1.4; PROTHROMBIN TIME 16.6 SECONDS (9.7-12.2)
[2017-06-05] MEDS: (Novolog) Insulin Aspart, Recombinant 100 u/ml 10 ml vial SC SCH ×7 (08:13→21:19)
[2017-06-05 08:25] LABS: ALB/GLOB RATIO 0.8 (1.0-2.1); ALBUMIN 2.1 g/dL (3.5-5.0); ALT/SGPT 16 U/L (9-52); AST/SGOT 23 U/L (14-36); BLOOD UREA NITROGEN 11 mg/dL (7-17); CALCIUM 6.9 mg/dl (8.6-10.4); GFR AFRICAN-AMERICAN > 60; GFR NON-AFRICAN AMERICAN > 60; MAGNESIUM 1.5 mg/dL (1.6-2.3)
--- NOTE | 2017-06-05 08:43 | CP.PCM.PN ---
<Angela Barraza - Last Filed: 06/05/17 17:52> Subjective - Date & Time of Evaluation Date of Evaluation: 06/05/17 Time of Evaluation: 08:43 - Subjective Subjective: Medicine progress note for Dr. Remy's service Patient was seen and examined at bedside in no acute distress. Patient was alert and orientedx3. Patient reports feeling "a little better", but still complains of her extremity swelling. Patient has no other complaints. Patient denies chest pain, abdominal pain, nausea, vomiting, fevers, headaches. Objective - Vital Signs/Intake and Output Vital Signs (last 24 hours): Temp Pulse Resp BP Pulse Ox 98.1 F 85 20 149/72 96 06/04/17 23:30 06/05/17 04:00 06/05/17 04:00 06/05/17 04:00 06/05/17 04:30 Intake and Output: 06/05/17 06/05/17 06:59 18:59 Intake Total 800 Output Total 1035 Balance -235 - Medications Medications: Current Medications Acetaminophen (Tylenol 160mg/5ml Oral Soln) 160 mg PO Q4H PRN PRN Reason: Pain, moderate (4-7) Last Admin: 06/04/17 10:26 Dose: 160 mg Albumin Human (Albumin Human 5% (12.5 Gm/250 Ml)) 12.5 gm IV DAILY [facility] Stop: 06/07/17 10:01 Last Admin: 06/04/17 12:26 Dose: 12.5 gm Albuterol/Ipratropium (Duoneb 3 Mg/0.5 Mg (3 Ml) Ud) 3 ml INH RQ4 [facility] Last Admin: 06/05/17 07:24 Dose: Not Given Diltiazem HCl (Cardizem Cd) 120 mg PO DAILY [facility] Last Admin: 06/04/17 10:12 Dose: 120 mg Heparin Sodium (Porcine) (Heparin) 5,000 units SC Q8 [facility] Last Admin: 06/05/17 05:58 Dose: 5,000 units Vancomycin HCl (Vancocin 750mg/D5w 150 Ml) 150 mls @ 100 mls/hr IVPB Q24H [facility] Stop: 06/08/17 18:01 Last Admin: 06/04/17 17:30 Dose: 100 mls/hr Sodium Chloride (Sodium Chloride 0.9%) 1,000 mls @ 100 mls/hr IV .Q10H [facility] Last Admin: 06/05/17 00:15 Dose: Not Given Meropenem 1 gm/ Sodium (Chloride) 100 mls @ 50 mls/hr IVPB Q12H [facility] Last Admin: 06/04/17 22:22 Dose: 50 mls/hr Insulin Aspart (Novolog) 0 unit SC ACHS [facility] PRN Reason: Protocol Last Admin: 06/05/17 08:13 Dose: Not Given Insulin Aspart (Novolog) 3 unit SC AC [facility] Last Admin: 06/05/17 08:15 Dose: Not Given Insulin Glargine (Lantus) 20 unit SC HS [facility] Last Admin: 06/04/17 21:52 Dose: 20 units Labetalol HCl (Trandate) 100 mg PO BID [facility] Last Admin: 06/04/17 17:29 Dose: 100 mg Oxycodone/Acetaminophen (Percocet 5/325 Mg Tab) 1 tab PO Q6H PRN PRN Reason: Pain, severe (8-10) Stop: 06/07/17 11:10 Pantoprazole Sodium (Protonix Ec Tab) 40 mg PO DAILY [facility] Last Admin: 06/04/17 10:12 Dose: 40 mg Saccharomyces Boulardii (Florastor) 250 mg PO DAILY [facility] Last Admin: 06/04/17 10:12 Dose: 250 mg - Labs Labs: 06/05/17 07:23 06/05/17 07:23 PT 16.6 SECONDS (9.7-12.2) H 06/05/17 07:23 INR 1.4 06/05/17 07:23 APTT 31 SECONDS (21-34) 05/25/17 07:51 - Additional Findings Additional findings: - Constitutional Appears: Non-toxic, No Acute Distress - Head Exam Head Exam: ATRAUMATIC, NORMAL INSPECTION - Eye Exam Eye Exam: EOMI - ENT Exam ENT Exam: Mucous Membranes Moist - Respiratory Exam Respiratory Exam: Rales, decreased breath sounds, NORMAL BREATHING PATTERN. absent: Rhonchi, Wheezes, Respiratory Distress - Cardiovascular Exam Cardiovascular Exam: REGULAR RHYTHM, +S1, +S2 - GI/Abdominal Exam GI & Abdominal Exam: Soft, Tenderness (s/p laparotomy, colostomy- with deep palpation), Diminished Bowel Sounds, Normal Bowel Sounds. absent: Distended, Firm Additional comments: Dressings dry,intact, clean; left colostomy bag in place- formed stool present. Midline edel and steristrips in place; slight wound dehiscence noted. - Extremities Exam Extremities Exam: Pitting edema of UE&LE bilaterally. absent: Calf Tenderness, Tenderness - Neurological Exam Neurological Exam: Alert, Awake, Oriented x3 - Psychiatric Exam Psychiatric exam: Normal Affect, Normal Mood - Skin Skin Exam: Dry, Normal Color, Warm Assessment and Plan - Assessment and Plan (Free Text) Plan: 1). Sigmoid colon mass/Liver lesion likely mets/Weight loss and abdominal pain * CT-Abd/Pelvis on admission showed 8.6 cm sigmoid mass with extensive hepatic metastasis. Bilateral renal cysts with large right upper pole renal cyst. Small bilateral pleural effusion and small pericardial effusion. Small hiatal hernia. Possible small diverticulum of the herniated stomach * Repeat Abd/Pel CT (05/30): no ureteral injury; bulk tumor in pelvis and hepatic mets disease; increasing pleural effusion in consolidative changes at the lung base; stable pericardial effusion; severe post-op anasarca. * CEA elevated @ 11.6. (Normal = 0-3.0) * Colonscopy (05/22/17): Non-bleeding external and internal hemorrhoids. 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 At the level of the distal sigmoid colon, contrast slowly traversed through a very thin and irregular channel to the level of the mid sigmoid at the site of the known sigmoid carcinoma. Contrast did not flow freely past this level. Exam was subsequently terminated. These findings were concerning for a near complete obstruction of the bowel lumen from the adjacent obstructing tumor. * Venous dopplers UE&LE b/l ordered due to edema and cancer: f/u results * Calorie count and monitoring Consults * GI consult Dr Foster ,appreciated * recommends peripheral hyperalimentation * Started PPN on 06/01/17 with electrolytes - PPN stopped 06/02 due to elevated glucose - Dietary Consult --> help appreciated * Dr Bright oncology consult - Recs appreciated * suggests consulting IR for FNA biopsy of liver lesions to obtain diagnosis * Surgery consult Dr Richard-appreciated * 05/25/17: Patient underwent laparotomy with diverting colostomy and liver biopsy. She was found to have the colonic mass invading the bladder and therefore was not entirely resectable * Liver Biopsy: necrotic tissue * NGT removed on 05/29/17 * Discontinued naqvi 05/31 * Patient scheduled for osteomy revision on 06/06/[address] Richard. 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 Sepsis * leukocytosis, bandemia * procalcitonin trending down: 4.15 --> 1.82--> 0.78 * Blood cx (05/28): no growth; urine cx: no growth * Peritoneal fluid stain: negative * Repeat blood cultures (05/29/17): negative * UA: 1+ protein, 1+ blood, 1+ LE, WBC29, RBC32, Occ bacteria * ID consulted, help appreciated * Meropenem 1gm IV Q12 (started 05/30/17) * Vanco 750mg IV Q24 (started 06/03/17 for 5days) * Discontinued Flagyl 500mg IV Q8h (started 05/30/17) * CXR (06/01): moderate left, small right pleural effusion; moderate venous congestions; confluent opacities in left mid to lower and right mid to lower lung; cardiomegaly * DARRYL drain cx: f/u results 3). DM 2 * Aspart ISS Q6H Low Dose * Accuchecks -moderate * Lantus 20 units HS (increased from 10 units on 06/03) * Novolog 3 units SCqAC * A1c: 8.4 4).Hypertension * Labetolol 100mg Q12H, Enalapril 15 mg Daily, and Cardizem [id number] Daily 5). Anemia * H/H stable * F/U: Iron Sat, Iron/TIBC, Ferritin, and Reticulocyte Count * S/P Transfusion upon admission * Continue to monitor 6). Pericardial effusion/cardiomegaly * Cardiology Consulted (Dr. Portillo) - help appreciated * as per Dr. Portillo, continue medical therapy; effusion is small; LV function is normal * ECHO (05/20/17): Diastolic Dysfunction Grade I-abnormal relaxation pattern, Trace TR and MR 7). Bilateral Renal Cysts * U/S Renal 05/26/17: Right Upper Pole renal cyst measures approximately 10.4x8.3x9.2 cm. Left upper pole renal cyst measures 2.2x1.4x1.6 cm * Will need follow up U/S in 6 months 8). Respiratory Acidosis * Patient was extubated on 05/26/17 and placed on BiPap and Bicarb Drip * Patient no longer on BiPap or bicarb drip 9). Pleural Effusion * CXR (06/01): moderate left, small right pleural effusion; moderate venous congestions; confluent opacities in left mid to lower and right mid to lower lung; cardiomegaly * Chest CT: moderate b/l pleural effusion with b/l lower lobe segmental/ subsegmental atelectasis; cardiomegaly with small pericardial effusion; probably widespread hepatic metastasis. * Continue Duonebs Q4 * Pulmonology consulted, Dr. Cherry, help appreciated * IR consulted for therapeutic thoracentesis for pleural effusions; as per IR, US showed small pleural effusions not amenable to thoracentisis. 10). DVT and GI prophylaxis * Heparin 5000sc Q8- HOLD * Dilaudid 0.5 mg IV Q4H PRN Severe Pain * Protonix 40 mg IV Q12H * PT/OT * Incentive spirometry * Palliative care: patient is DNR/DNI as of 05/29/17. Polst form completed. * Diet: Diabetic diet Son Dominick Mckoy ([phone]) Niece Lucretia Prabhakar ([phone]) as POA/Health Care Proxy Disposition: Patient scheduled for osteomy revision on 06/06/[address] Richard. NPO@[place], hold heparin; Patient accepted to [facility]. <Arya Remy - Last Filed: 06/05/17 20:24> Objective - Vital Signs/Intake and Output Vital Signs (last 24 hours): Temp Pulse Resp BP Pulse Ox 98.1 F 86 18 123/70 94 L 06/05/17 15:00 06/05/17 15:00 06/05/17 15:00 06/05/17 15:00 06/05/17 15:00 Intake and Output: 06/05/17 06/06/17 18:59 06:59 Intake Total 240 Output Total 545 Balance -305 - Medications Medications: Current Medications Acetaminophen (Tylenol 160mg/5ml Oral Soln) 160 mg PO Q4H PRN PRN Reason: Pain, moderate (4-7) Last Admin: 06/04/17 10:26 Dose: 160 mg Albumin Human (Albumin Human 5% (12.5 Gm/250 Ml)) 12.5 gm IV DAILY [facility] Stop: 06/07/17 10:01 Last Admin: 06/05/17 15:54 Dose: 12.5 gm Albuterol/Ipratropium (Duoneb 3 Mg/0.5 Mg (3 Ml) Ud) 3 ml INH RQ4 [facility] Last Admin: 06/05/17 20:19 Dose: Not Given Diltiazem HCl (Cardizem Cd) 120 mg PO DAILY [facility] Last Admin: 06/05/17 10:51 Dose: 120 mg Heparin Sodium (Porcine) (Heparin) 5,000 units SC Q8 [facility] Last Admin: 06/05/17 13:25 Dose: 5,000 units Vancomycin HCl (Vancocin 750mg/D5w 150 Ml) 150 mls @ 100 mls/hr IVPB Q24H [facility] Stop: 06/08/17 18:01 Last Admin: 06/05/17 18:17 Dose: 100 mls/hr Sodium Chloride (Sodium Chloride 0.9%) 1,000 mls @ 100 mls/hr IV .Q10H [facility] Last Admin: 06/05/17 19:14 Dose: 100 mls/hr Meropenem 1 gm/ Sodium (Chloride) 100 mls @ 50 mls/hr IVPB Q12H [facility] Last Admin: 06/05/17 13:16 Dose: 50 mls/hr Insulin Aspart (Novolog) 0 unit SC ACHS [facility] PRN Reason: Protocol Last Admin: 06/05/17 17:27 Dose: 6 unit Insulin Aspart (Novolog) 3 unit SC AC [facility] Last Admin: 06/05/17 17:27 Dose: 3 unit Insulin Glargine (Lantus) 20 unit SC HS [facility] Last Admin: 06/04/17 21:52 Dose: 20 units Labetalol HCl (Trandate) 100 mg PO BID [facility] Last Admin: 06/05/17 18:17 Dose: 100 mg Oxycodone/Acetaminophen (Percocet 5/325 Mg Tab) 1 tab PO Q6H PRN PRN Reason: Pain, severe (8-10) Stop: 06/07/17 11:10 Pantoprazole Sodium (Protonix Ec Tab) 40 mg PO DAILY [facility] Last Admin: 06/05/17 10:51 Dose: 40 mg Saccharomyces Boulardii (Florastor) 250 mg PO DAILY [facility] Last Admin: 06/05/17 10:51 Dose: 250 mg - Labs Labs: 06/05/17 07:23 06/05/17 07:23 PT 16.6 SECONDS (9.7-12.2) H 06/05/17 07:23 INR 1.4 06/05/17 07:23 APTT 31 SECONDS (21-34) 05/25/17 07:51 Attending/Attestation - Attestation I have personally seen and examined this patient.: Yes I have fully participated in the care of the patient.: Yes I have reviewed all pertinent clinical information, including history, physical exam and plan: Yes Notes (Text): 06/05/17 20:24 Patient was seen and examined at 5:30 PM with Son present. Exam, assessment and plan were gone over with the resident. Arya Remy D.O.
[2017-06-05] MEDS ORDERED: Albumin Human 5% (12.5 gm/250 ml) IV SCH (10:00)
[2017-06-05 10:06] LABS: LYMPHOCYTE 6 % (20-40); MONOCYTE 4 % (0-10); NEUTROPHIL 90 % (50-75); TOTAL CELLS COUNTED 100
[2017-06-05 10:07] LABS: ANISOCYTOSIS MODERATE; LARGE PLATELETS PRESENT; PLATELET ESTIMATE NORMAL (NORMAL); TOXIC GRANULATION PRESENT
[2017-06-05 10:08] LABS: HYPOCHROMIC SLIGHT; POLYCHROMIC SLIGHT
[2017-06-05] MEDS: diltiaZEM 120 mg/24 Hours CD Cap PO SCH (10:51)
[2017-06-05] MEDS: Saccharomyces Boulardi 250 mg Cap PO SCH (10:51)
[2017-06-05] MEDS: Pantoprazole 40 mg EC Tab PO SCH (10:51)
[2017-06-05] MEDS: Meropenem 1 GM in Sodium Chloride 0.9% 100 ML IVPB SCH ×3 (11:07→22:19)
[2017-06-05] MEDS: Albumin Human 5% (12.5 gm/250 ml) IV SCH ×2 (11:08→15:54)
[2017-06-05] MEDS ORDERED: Potassium Phosphate 15 MMOLE in Sodium Chloride 0.9% 100 ML IV ONE (11:21)
[2017-06-05] MEDS ORDERED: Magnesium Sulfate 1 gm in D5W 1 GM/100 ML BAG IVPB ONE (11:24)
--- NOTE | 2017-06-05 12:57 | PCM.IRP ---
History of Present Illness - History of Present Illness History of Present Illness: Ms. Cortez was brought to IR for thoracentesis. US showed small bilateral effusion not amenable to thoracentesis. Objective - Vital Signs/Intake and Output Vital Signs (last 24 hours): Vital Signs - 24 hr 06/04/17 06/04/17 06/05/17 15:00 23:30 04:00 Temperature 97 F L 98.1 F Pulse Rate 88 92 H 85 Respiratory 20 20 20 Rate Blood Pressure 151/73 H 131/78 149/72 O2 Sat by Pulse 96 96 93 L Oximetry 06/05/17 06/05/17 06/05/17 04:30 09:29 11:01 Temperature 97.2 F L 97.6 F Pulse Rate 84 82 Respiratory 18 20 Rate Blood Pressure 151/88 H 137/86 O2 Sat by Pulse 96 95 95 Oximetry Intake and Output (last 12 hours): Intake & Output 06/04/17 06/05/17 06/05/17 18:59 06:59 18:59 Intake Total 1055 800 Output Total 355 1035 Balance 700 -235 Intake: Intake, IV Amount 565 800 Right Antecubital 565 800 Oral 240 Albumin 250 Output: Drainage 205 335 JP1 90 90 JP2 115 245 Urine 150 700 Urethral (Bailey) 150 700 Other: # Bowel Movements 2 - Medications Medications: Current Medications Acetaminophen (Tylenol 160mg/5ml Oral Soln) 160 mg PO Q4H PRN PRN Reason: Pain, moderate (4-7) Last Admin: 06/04/17 10:26 Dose: 160 mg Albumin Human (Albumin Human 5% (12.5 Gm/250 Ml)) 12.5 gm IV DAILY [facility] Stop: 06/07/17 10:01 Last Admin: 06/05/17 11:08 Dose: Not Given Albuterol/Ipratropium (Duoneb 3 Mg/0.5 Mg (3 Ml) Ud) 3 ml INH RQ4 [facility] Last Admin: 06/05/17 07:24 Dose: Not Given Diltiazem HCl (Cardizem Cd) 120 mg PO DAILY [facility] Last Admin: 06/05/17 10:51 Dose: 120 mg Heparin Sodium (Porcine) (Heparin) 5,000 units SC Q8 [facility] Last Admin: 06/05/17 05:58 Dose: 5,000 units Vancomycin HCl (Vancocin 750mg/D5w 150 Ml) 150 mls @ 100 mls/hr IVPB Q24H [facility] Stop: 06/08/17 18:01 Last Admin: 06/04/17 17:30 Dose: 100 mls/hr Sodium Chloride (Sodium Chloride 0.9%) 1,000 mls @ 100 mls/hr IV .Q10H [facility] Last Admin: 06/05/17 11:07 Dose: Not Given Meropenem 1 gm/ Sodium (Chloride) 100 mls @ 50 mls/hr IVPB Q12H [facility] Last Admin: 06/05/17 11:07 Dose: Not Given Potassium Phosphate 15 mmole/ (Sodium Chloride) 105 mls @ 52.5 mls/hr IV ONCE ONE Stop: 06/05/17 13:20 Insulin Aspart (Novolog) 0 unit SC ACHS [facility] PRN Reason: Protocol Last Admin: 06/05/17 11:29 Dose: Not Given Insulin Aspart (Novolog) 3 unit SC AC [facility] Last Admin: 06/05/17 11:30 Dose: Not Given Insulin Glargine (Lantus) 20 unit SC HS [facility] Last Admin: 06/04/17 21:52 Dose: 20 units Labetalol HCl (Trandate) 100 mg PO BID [facility] Last Admin: 06/05/17 10:51 Dose: 100 mg Oxycodone/Acetaminophen (Percocet 5/325 Mg Tab) 1 tab PO Q6H PRN PRN Reason: Pain, severe (8-10) Stop: 06/07/17 11:10 Pantoprazole Sodium (Protonix Ec Tab) 40 mg PO DAILY [facility] Last Admin: 06/05/17 10:51 Dose: 40 mg Saccharomyces Boulardii (Florastor) 250 mg PO DAILY [facility] Last Admin: 06/05/17 10:51 Dose: 250 mg - Labs Labs (last 24 hours): Laboratory Results - last 24 hr 06/04/17 06/04/17 06/04/17 11:39 15:23 16:18 WBC RBC Hgb Hct MCV MCH MCHC RDW Plt Count MPV Neut % (Auto) Lymph % (Auto) [place] % (Auto) Eos % (Auto) Baso % (Auto) Neut # Lymph # [place] # Eos # Baso # Neutrophils % (Manual) Lymphocytes % (Manual) Monocytes % (Manual) Toxic Granulation Platelet Estimate Large Platelets Polychromasia Hypochromasia (manual) Anisocytosis (manual) PT INR Sodium Potassium Chloride Carbon Dioxide Anion Gap BUN Creatinine Est GFR ( Amer) Est GFR (Non-Af Amer) POC Glucose (mg/dL) 181 H 209 H Random Glucose Calcium Phosphorus Magnesium Total Bilirubin AST ALT Alkaline Phosphatase Total Protein Albumin Globulin Albumin/Globulin Ratio Urine Color Olivia Urine Clarity Hazy Urine pH 5.0 Ur Specific [place] 1.024 Urine Protein 1+ H Urine Glucose (UA) Normal Urine Ketones Negative Urine Blood Negative Urine Nitrate Negative Urine Bilirubin Negative Urine Urobilinogen 2.0 H Ur Leukocyte Esterase 2+ H Urine WBC (Auto) 16 H Urine RBC (Auto) 3 Ur Squamous Epith Cells 1 Urine Bacteria Occ H Ur Yeast w Hyphae Few H Urine Yeast (Budding) Many H 06/04/17 06/05/17 06/05/17 21:29 03:34 03:35 WBC RBC Hgb Hct MCV MCH MCHC RDW Plt Count MPV Neut % (Auto) Lymph % (Auto) [place] % (Auto) Eos % (Auto) Baso % (Auto) Neut # Lymph # [place] # Eos # Baso # Neutrophils % (Manual) Lymphocytes % (Manual) Monocytes % (Manual) Toxic Granulation Platelet Estimate Large Platelets Polychromasia Hypochromasia (manual) Anisocytosis (manual) PT INR Sodium Potassium Chloride Carbon Dioxide Anion Gap BUN Creatinine Est GFR ( Amer) Est GFR (Non-Af Amer) POC Glucose (mg/dL) 126 H 32 L* 36 L* Random Glucose Calcium Phosphorus Magnesium Total Bilirubin AST ALT Alkaline Phosphatase Total Protein Albumin Globulin Albumin/Globulin Ratio Urine Color Urine Clarity Urine pH Ur Specific [place] Urine Protein Urine Glucose (UA) Urine Ketones Urine Blood Urine Nitrate Urine Bilirubin Urine Urobilinogen Ur Leukocyte Esterase Urine WBC (Auto) Urine RBC (Auto) Ur Squamous Epith Cells Urine Bacteria Ur Yeast w Hyphae Urine Yeast (Budding) 06/05/17 06/05/17 06/05/17 03:58 06:10 06:12 WBC RBC Hgb Hct MCV MCH MCHC RDW Plt Count MPV Neut % (Auto) Lymph % (Auto) [place] % (Auto) Eos % (Auto) Baso % (Auto) Neut # Lymph # [place] # Eos # Baso # Neutrophils % (Manual) Lymphocytes % (Manual) Monocytes % (Manual) Toxic Granulation Platelet Estimate Large Platelets Polychromasia Hypochromasia (manual) Anisocytosis (manual) PT INR Sodium Potassium Chloride Carbon Dioxide Anion Gap BUN Creatinine Est GFR ( Amer) Est GFR (Non-Af Amer) POC Glucose (mg/dL) 148 H 65 64 L Random Glucose Calcium Phosphorus Magnesium Total Bilirubin AST ALT Alkaline Phosphatase Total Protein Albumin Globulin Albumin/Globulin Ratio Urine Color Urine Clarity Urine pH Ur Specific [place] Urine Protein Urine Glucose (UA) Urine Ketones Urine Blood Urine Nitrate Urine Bilirubin Urine Urobilinogen Ur Leukocyte Esterase Urine WBC (Auto) Urine RBC (Auto) Ur Squamous Epith Cells Urine Bacteria Ur Yeast w Hyphae Urine Yeast (Budding) 06/05/17 06/05/17 06/05/17 06:55 07:23 07:23 WBC 13.2 H RBC 3.30 L Hgb 9.1 L Hct 27.6 L MCV 83.6 MCH 27.5 MCHC 32.8 L RDW 18.8 H Plt Count 325 MPV 9.0 Neut % (Auto) 88.5 H Lymph % (Auto) 6.6 L [place] % (Auto) 4.8 Eos % (Auto) 0.1 Baso % (Auto) 0.0 Neut # 11.7 H Lymph # 0.9 L [place] # 0.6 Eos # 0.0 Baso # 0.0 Neutrophils % (Manual) 90 H Lymphocytes % (Manual) 6 L Monocytes % (Manual) 4 Toxic Granulation Present Platelet Estimate Normal Large Platelets Present Polychromasia Slight Hypochromasia (manual) Slight Anisocytosis (manual) Moderate PT INR Sodium 126 L Potassium 3.2 L Chloride 96 L Carbon Dioxide 29 Anion Gap 4 L BUN 11 Creatinine 0.5 L Est GFR ( Amer) > 60 Est GFR (Non-Af Amer) > 60 POC Glucose (mg/dL) 150 H Random Glucose 141 H Calcium 6.9 L Phosphorus 2.4 L Magnesium 1.5 L Total Bilirubin 0.5 AST 23 ALT 16 Alkaline Phosphatase 228 H Total Protein 4.8 L Albumin 2.1 L Globulin 2.6 Albumin/Globulin Ratio 0.8 L Urine Color Urine Clarity Urine pH Ur Specific [place] Urine Protein Urine Glucose (UA) Urine Ketones Urine Blood Urine Nitrate Urine Bilirubin Urine Urobilinogen Ur Leukocyte Esterase Urine WBC (Auto) Urine RBC (Auto) Ur Squamous Epith Cells Urine Bacteria Ur Yeast w Hyphae Urine Yeast (Budding) 06/05/17 06/05/17 07:23 07:30 WBC RBC Hgb Hct MCV MCH MCHC RDW Plt Count MPV Neut % (Auto) Lymph % (Auto) [place] % (Auto) Eos % (Auto) Baso % (Auto) Neut # Lymph # [place] # Eos # Baso # Neutrophils % (Manual) Lymphocytes % (Manual) Monocytes % (Manual) Toxic Granulation Platelet Estimate Large Platelets Polychromasia Hypochromasia (manual) Anisocytosis (manual) PT 16.6 H INR 1.4 Sodium Potassium Chloride Carbon Dioxide Anion Gap BUN Creatinine Est GFR ( Amer) Est GFR (Non-Af Amer) POC Glucose (mg/dL) 119 H Random Glucose Calcium Phosphorus Magnesium Total Bilirubin AST ALT Alkaline Phosphatase Total Protein Albumin Globulin Albumin/Globulin Ratio Urine Color Urine Clarity Urine pH Ur Specific [place] Urine Protein Urine Glucose (UA) Urine Ketones Urine Blood Urine Nitrate Urine Bilirubin Urine Urobilinogen Ur Leukocyte Esterase Urine WBC (Auto) Urine RBC (Auto) Ur Squamous Epith Cells Urine Bacteria Ur Yeast w Hyphae Urine Yeast (Budding)
--- NOTE | 2017-06-05 14:18 | PN ---
DATE: LOCATION: [facility], bed A. SUBJECTIVE: This is an 86-year-old female still in state of DNR and DNI, seen and examined early in rounds, was reported for possible thoracocentesis due to the patient's pleural effusion, appeared to be somewhat mildly lethargic and respond to some verbal stimuli on and off. It has to be mentioned that the patient has more than one episode of hypoglycemia recently. The entire chart is reviewed including, but not limited to the most recent lab and radiology study results, current and the previous medication list, current and the previous medical events. LABORATORY DATA: Today's labs showed white blood cells of with hemoglobin 9.1, hematocrit 27.6 with increased PT 16.6, but low sodium 126, low potassium 3.2 with low creatinine of 0.5, the most recent blood glucose level reported to be 141 with low calcium 6.2, low phosphorus 2.4, low magnesium 1.5 with low albumin 2.1, low total protein 4.8. Case discussed at length with the admitting medical staff and the staff in the floor. PHYSICAL EXAMINATION: GENERAL: An 86-year-old female. VITAL SIGNS: Afebrile with pulse of 80, respiratory rate 18 to 20, blood pressure of 138/84. HEENT: Showed mildly pale, dry oral mucous membrane, nonicteric sclerae. LUNGS: Few scattered crepitation with decreased air entry at bases. HEART: Positive S1 and S2. ABDOMEN: With mild distention. Colostomy tube is in place with clean dressing and small amount of fecal material. No mass or organomegaly. EXTREMITIES: With mild edematous changes in the lower extremities. No clubbing or cyanosis. Peripheral pulses are present, but weak bilaterally. NEUROLOGIC: No new reported neurological deficits, sensory or motor. It has to be mentioned that no reported nausea or vomiting this morning and no reported palpitation, chest pain or significant shortness of breath by the nursing staff. IMPRESSION: 1. Left-sided colon cancer with metastatic lesion to the liver. 2. Pericardial effusion. 3. Pleural effusion. 4. Anemia secondary to above. 5. Known history of, but not limited to hypertension, poorly controlled diabetes mellitus as well as bilateral large renal cysts. SUGGESTIONS: 1. Continue conservative treatment. 2. Peripheral hyperalimentation. 3. Correct any underlying electrolyte imbalance. 4. Further recommendations to follow and no further aggressive GI workup in the meantime. Sp Leblanc MD
--- NOTE | 2017-06-05 16:04 | CP.PCM.PN ---
Subjective - Date & Time of Evaluation Date of Evaluation: 06/05/17 Time of Evaluation: 15:58 - Subjective Subjective: Surgery Pt s&e. Bailey placed over the weekend. Pt is confused. Objective - Vital Signs/Intake and Output Vital Signs (last 24 hours): Temp Pulse Resp BP Pulse Ox 98.2 F 94 H 20 167/91 H 97 06/05/17 13:17 06/05/17 13:17 06/05/17 13:17 06/05/17 13:17 06/05/17 13:17 Intake and Output: 06/05/17 06/05/17 06:59 18:59 Intake Total 800 240 Output Total 1035 545 Balance -235 -305 - Medications Medications: Current Medications Acetaminophen (Tylenol 160mg/5ml Oral Soln) 160 mg PO Q4H PRN PRN Reason: Pain, moderate (4-7) Last Admin: 06/04/17 10:26 Dose: 160 mg Albumin Human (Albumin Human 5% (12.5 Gm/250 Ml)) 12.5 gm IV DAILY [facility] Stop: 06/07/17 10:01 Last Admin: 06/05/17 15:54 Dose: 12.5 gm Albuterol/Ipratropium (Duoneb 3 Mg/0.5 Mg (3 Ml) Ud) 3 ml INH RQ4 [facility] Last Admin: 06/05/17 13:21 Dose: Not Given Diltiazem HCl (Cardizem Cd) 120 mg PO DAILY [facility] Last Admin: 06/05/17 10:51 Dose: 120 mg Heparin Sodium (Porcine) (Heparin) 5,000 units SC Q8 [facility] Last Admin: 06/05/17 13:25 Dose: 5,000 units Vancomycin HCl (Vancocin 750mg/D5w 150 Ml) 150 mls @ 100 mls/hr IVPB Q24H [facility] Stop: 06/08/17 18:01 Last Admin: 06/04/17 17:30 Dose: 100 mls/hr Sodium Chloride (Sodium Chloride 0.9%) 1,000 mls @ 100 mls/hr IV .Q10H [facility] Last Admin: 06/05/17 11:07 Dose: Not Given Meropenem 1 gm/ Sodium (Chloride) 100 mls @ 50 mls/hr IVPB Q12H [facility] Last Admin: 06/05/17 13:16 Dose: 50 mls/hr Insulin Aspart (Novolog) 0 unit SC ACHS [facility] PRN Reason: Protocol Last Admin: 06/05/17 11:29 Dose: Not Given Insulin Aspart (Novolog) 3 unit SC AC [facility] Last Admin: 06/05/17 11:30 Dose: Not Given Insulin Glargine (Lantus) 20 unit SC HS [facility] Last Admin: 06/04/17 21:52 Dose: 20 units Labetalol HCl (Trandate) 100 mg PO BID [facility] Last Admin: 06/05/17 10:51 Dose: 100 mg Oxycodone/Acetaminophen (Percocet 5/325 Mg Tab) 1 tab PO Q6H PRN PRN Reason: Pain, severe (8-10) Stop: 06/07/17 11:10 Pantoprazole Sodium (Protonix Ec Tab) 40 mg PO DAILY [facility] Last Admin: 06/05/17 10:51 Dose: 40 mg Saccharomyces Boulardii (Florastor) 250 mg PO DAILY [facility] Last Admin: 06/05/17 10:51 Dose: 250 mg - Labs Labs: 06/05/17 07:23 06/05/17 07:23 PT 16.6 SECONDS (9.7-12.2) H 06/05/17 07:23 INR 1.4 06/05/17 07:23 APTT 31 SECONDS (21-34) 05/25/17 07:51 - Constitutional Appears: Non-toxic - Head Exam Head Exam: ATRAUMATIC, NORMAL INSPECTION, NORMOCEPHALIC - Eye Exam Eye Exam: EOMI, Normal appearance, PERRL Pupil Exam: NORMAL ACCOMODATION, PERRL - ENT Exam ENT Exam: Mucous Membranes Moist, Normal Exam - Neck Exam Neck Exam: Full ROM, Normal Inspection. absent: Lymphadenopathy - Respiratory Exam Respiratory Exam: Clear to Ausculation Bilateral, NORMAL BREATHING PATTERN - Cardiovascular Exam Cardiovascular Exam: REGULAR RHYTHM, +S1, +S2. absent: Murmur - GI/Abdominal Exam GI & Abdominal Exam: Soft, Normal Bowel Sounds. absent: Distended, Firm, Guarding, Rigid, Tenderness Additional comments: Drain in place. Incision has edel. No drainage. Stoma has output - Extremities Exam Extremities Exam: Full ROM, Normal Capillary Refill, Normal Inspection. absent : Joint Swelling, Pedal Edema - Back Exam Back Exam: NORMAL INSPECTION - Neurological Exam Neurological Exam: Awake, CN II-XII Intact - Skin Skin Exam: Warm Assessment and Plan - Assessment and Plan (Free Text) Assessment: 86F POD#11 s/p exploratory laparotomy w/diverting colostomy & liver biopsy Plan: OR tomorrow for stoma revision Dressing changes PRN NPO aftermidnight anti-emetics pain control OOBTC Ambulate Need aggresive PT Encourage IS use continue medical mgmt DW attending
--- NOTE | 2017-06-05 17:53 | CP.PCM.PN ---
Subjective - Date & Time of Evaluation Date of Evaluation: 06/05/17 Time of Evaluation: 03:00 - Subjective Subjective: dictated Objective - Vital Signs/Intake and Output Vital Signs (last 24 hours): Temp Pulse Resp BP Pulse Ox 98.1 F 86 18 123/70 94 L 06/05/17 15:00 06/05/17 15:00 06/05/17 15:00 06/05/17 15:00 06/05/17 15:00 Intake and Output: 06/05/17 06/05/17 06:59 18:59 Intake Total 800 240 Output Total 1035 545 Balance -235 -305 - Medications Medications: Current Medications Acetaminophen (Tylenol 160mg/5ml Oral Soln) 160 mg PO Q4H PRN PRN Reason: Pain, moderate (4-7) Last Admin: 06/04/17 10:26 Dose: 160 mg Albumin Human (Albumin Human 5% (12.5 Gm/250 Ml)) 12.5 gm IV DAILY [facility] Stop: 06/07/17 10:01 Last Admin: 06/05/17 15:54 Dose: 12.5 gm Albuterol/Ipratropium (Duoneb 3 Mg/0.5 Mg (3 Ml) Ud) 3 ml INH RQ4 [facility] Last Admin: 06/05/17 17:14 Dose: Not Given Diltiazem HCl (Cardizem Cd) 120 mg PO DAILY [facility] Last Admin: 06/05/17 10:51 Dose: 120 mg Heparin Sodium (Porcine) (Heparin) 5,000 units SC Q8 [facility] Last Admin: 06/05/17 13:25 Dose: 5,000 units Vancomycin HCl (Vancocin 750mg/D5w 150 Ml) 150 mls @ 100 mls/hr IVPB Q24H [facility] Stop: 06/08/17 18:01 Last Admin: 06/04/17 17:30 Dose: 100 mls/hr Sodium Chloride (Sodium Chloride 0.9%) 1,000 mls @ 100 mls/hr IV .Q10H [facility] Last Admin: 06/05/17 11:07 Dose: Not Given Meropenem 1 gm/ Sodium (Chloride) 100 mls @ 50 mls/hr IVPB Q12H [facility] Last Admin: 06/05/17 13:16 Dose: 50 mls/hr Insulin Aspart (Novolog) 0 unit SC ACHS [facility] PRN Reason: Protocol Last Admin: 06/05/17 17:27 Dose: 6 unit Insulin Aspart (Novolog) 3 unit SC AC [facility] Last Admin: 06/05/17 17:27 Dose: 3 unit Insulin Glargine (Lantus) 20 unit SC HS [facility] Last Admin: 06/04/17 21:52 Dose: 20 units Labetalol HCl (Trandate) 100 mg PO BID [facility] Last Admin: 06/05/17 10:51 Dose: 100 mg Oxycodone/Acetaminophen (Percocet 5/325 Mg Tab) 1 tab PO Q6H PRN PRN Reason: Pain, severe (8-10) Stop: 06/07/17 11:10 Pantoprazole Sodium (Protonix Ec Tab) 40 mg PO DAILY [facility] Last Admin: 06/05/17 10:51 Dose: 40 mg Saccharomyces Boulardii (Florastor) 250 mg PO DAILY [facility] Last Admin: 06/05/17 10:51 Dose: 250 mg - Labs Labs: 06/05/17 07:23 06/05/17 07:23 PT 16.6 SECONDS (9.7-12.2) H 06/05/17 07:23 INR 1.4 06/05/17 07:23 APTT 31 SECONDS (21-34) 05/25/17 07:51
--- NOTE | 2017-06-05 18:02 | CP.PCM.PN ---
Objective - Vital Signs/Intake and Output Vital Signs (last 24 hours): Temp Pulse Resp BP Pulse Ox 98.1 F 86 18 123/70 94 L 06/05/17 15:00 06/05/17 15:00 06/05/17 15:00 06/05/17 15:00 06/05/17 15:00 Intake and Output: 06/05/17 06/05/17 06:59 18:59 Intake Total 800 240 Output Total 1035 545 Balance -235 -305 - Medications Medications: Current Medications Acetaminophen (Tylenol 160mg/5ml Oral Soln) 160 mg PO Q4H PRN PRN Reason: Pain, moderate (4-7) Last Admin: 06/04/17 10:26 Dose: 160 mg Albumin Human (Albumin Human 5% (12.5 Gm/250 Ml)) 12.5 gm IV DAILY [facility] Stop: 06/07/17 10:01 Last Admin: 06/05/17 15:54 Dose: 12.5 gm Albuterol/Ipratropium (Duoneb 3 Mg/0.5 Mg (3 Ml) Ud) 3 ml INH RQ4 [facility] Last Admin: 06/05/17 17:14 Dose: Not Given Diltiazem HCl (Cardizem Cd) 120 mg PO DAILY [facility] Last Admin: 06/05/17 10:51 Dose: 120 mg Heparin Sodium (Porcine) (Heparin) 5,000 units SC Q8 [facility] Last Admin: 06/05/17 13:25 Dose: 5,000 units Vancomycin HCl (Vancocin 750mg/D5w 150 Ml) 150 mls @ 100 mls/hr IVPB Q24H [facility] Stop: 06/08/17 18:01 Last Admin: 06/04/17 17:30 Dose: 100 mls/hr Sodium Chloride (Sodium Chloride 0.9%) 1,000 mls @ 100 mls/hr IV .Q10H [facility] Last Admin: 06/05/17 11:07 Dose: Not Given Meropenem 1 gm/ Sodium (Chloride) 100 mls @ 50 mls/hr IVPB Q12H [facility] Last Admin: 06/05/17 13:16 Dose: 50 mls/hr Insulin Aspart (Novolog) 0 unit SC ACHS [facility] PRN Reason: Protocol Last Admin: 06/05/17 17:27 Dose: 6 unit Insulin Aspart (Novolog) 3 unit SC AC [facility] Last Admin: 06/05/17 17:27 Dose: 3 unit Insulin Glargine (Lantus) 20 unit SC HS [facility] Last Admin: 06/04/17 21:52 Dose: 20 units Labetalol HCl (Trandate) 100 mg PO BID [facility] Last Admin: 06/05/17 10:51 Dose: 100 mg Oxycodone/Acetaminophen (Percocet 5/325 Mg Tab) 1 tab PO Q6H PRN PRN Reason: Pain, severe (8-10) Stop: 06/07/17 11:10 Pantoprazole Sodium (Protonix Ec Tab) 40 mg PO DAILY [facility] Last Admin: 06/05/17 10:51 Dose: 40 mg Saccharomyces Boulardii (Florastor) 250 mg PO DAILY [facility] Last Admin: 06/05/17 10:51 Dose: 250 mg - Labs Labs: 06/05/17 07:23 06/05/17 07:23 PT 16.6 SECONDS (9.7-12.2) H 06/05/17 07:23 INR 1.4 06/05/17 07:23 APTT 31 SECONDS (21-34) 05/25/17 07:51
[2017-06-05] MEDS: Vancomycin 750mg/D5W 150 ml 150 ML IVPB SCH (18:17)
[2017-06-05] MEDS: (Lantus) Insulin Glargine, Recombinant SC SCH (21:20)
--- NOTE | 2017-06-05 23:40 | CP.PCM.PN ---
Subjective - Date & Time of Evaluation Date of Evaluation: 06/05/17 Time of Evaluation: 08:15 - Subjective Subjective: Arms swollen and feel heavy Objective - Vital Signs/Intake and Output Vital Signs (last 24 hours): Temp Pulse Resp BP Pulse Ox 98.1 F 86 18 123/70 94 L 06/05/17 15:00 06/05/17 15:00 06/05/17 15:00 06/05/17 15:00 06/05/17 15:00 Intake and Output: 06/05/17 06/06/17 18:59 06:59 Intake Total 240 1050 Output Total 545 380 Balance -305 670 - Medications Medications: Current Medications Acetaminophen (Tylenol 160mg/5ml Oral Soln) 160 mg PO Q4H PRN PRN Reason: Pain, moderate (4-7) Last Admin: 06/04/17 10:26 Dose: 160 mg Albumin Human (Albumin Human 5% (12.5 Gm/250 Ml)) 12.5 gm IV DAILY [facility] Stop: 06/07/17 10:01 Last Admin: 06/05/17 15:54 Dose: 12.5 gm Albuterol/Ipratropium (Duoneb 3 Mg/0.5 Mg (3 Ml) Ud) 3 ml INH RQ4 [facility] Last Admin: 06/05/17 20:19 Dose: Not Given Diltiazem HCl (Cardizem Cd) 120 mg PO DAILY [facility] Last Admin: 06/05/17 10:51 Dose: 120 mg Heparin Sodium (Porcine) (Heparin) 5,000 units SC Q8 [facility] Last Admin: 06/05/17 13:25 Dose: 5,000 units Vancomycin HCl (Vancocin 750mg/D5w 150 Ml) 150 mls @ 100 mls/hr IVPB Q24H [facility] Stop: 06/08/17 18:01 Last Admin: 06/05/17 18:17 Dose: 100 mls/hr Sodium Chloride (Sodium Chloride 0.9%) 1,000 mls @ 100 mls/hr IV .Q10H [facility] Last Admin: 06/05/17 19:14 Dose: 100 mls/hr Meropenem 1 gm/ Sodium (Chloride) 100 mls @ 50 mls/hr IVPB Q12H [facility] Last Admin: 06/05/17 22:19 Dose: 50 mls/hr Insulin Aspart (Novolog) 0 unit SC ACHS [facility] PRN Reason: Protocol Last Admin: 06/05/17 21:19 Dose: Not Given Insulin Aspart (Novolog) 3 unit SC AC [facility] Last Admin: 06/05/17 17:27 Dose: 3 unit Insulin Glargine (Lantus) 20 unit SC HS [facility] Last Admin: 06/05/17 21:20 Dose: Not Given Labetalol HCl (Trandate) 100 mg PO BID [facility] Last Admin: 06/05/17 18:17 Dose: 100 mg Oxycodone/Acetaminophen (Percocet 5/325 Mg Tab) 1 tab PO Q6H PRN PRN Reason: Pain, severe (8-10) Stop: 06/07/17 11:10 Pantoprazole Sodium (Protonix Ec Tab) 40 mg PO DAILY [facility] Last Admin: 06/05/17 10:51 Dose: 40 mg Saccharomyces Boulardii (Florastor) 250 mg PO DAILY [facility] Last Admin: 06/05/17 10:51 Dose: 250 mg - Labs Labs: 06/05/17 07:23 06/05/17 07:23 PT 16.6 SECONDS (9.7-12.2) H 06/05/17 07:23 INR 1.4 06/05/17 07:23 APTT 31 SECONDS (21-34) 05/25/17 07:51 - Head Exam Head Exam: ATRAUMATIC - Eye Exam Eye Exam: Normal appearance - ENT Exam ENT Exam: Mucous Membranes Dry - Respiratory Exam Respiratory Exam: NORMAL BREATHING PATTERN - Cardiovascular Exam Cardiovascular Exam: +S1, +S2 - GI/Abdominal Exam GI & Abdominal Exam: Normal Bowel Sounds - Extremities Exam Extremities Exam: Pedal Edema Assessment and Plan (1) Colon adenocarcinoma Assessment & Plan: s/p diversion liver metastasis, biopsy proven adenocarcinoma outpatient treatment Status: Acute (2) Anemia Assessment & Plan: chronic disease Status: Acute (3) Coagulopathy Status: Acute
--- NOTE | 2017-06-05 23:58 | PN ---
DATE: SUBJECTIVE: Patient was seen this afternoon. She was sitting in a Ary chair with pillows around, and she said she was of pillows and she denied any abdominal pain and said that Dr. Richard had put three sutures in her colostomy site yesterday. She still has two DARRYL drains and had a Bailey catheter as there has been no output. She was getting IV fluids, and today she had 300 plus in the first shift from 7 to 3. PHYSICAL EXAMINATION: GENERAL: She was in no distress. VITAL SIGNS: T-max is 98.1, pulse 86, blood pressure 123/70, respirations are 18. HEENT: Head is atraumatic, normocephalic. NECK: Supple. LUNGS: Clear, decreased breath sounds. She went downstairs for the IR, but they did not find sufficient fluid to remove from the effusion that was suspected. ABDOMEN: Soft and she is covered allover, however, and does not want me to remove it. EXTREMITIES: Remain with bilateral edema on the lower extremities. LABORATORY DATA: Unremarkable. Labs show white count is 13.2, hemoglobin 9.1, hematocrit 27.6, platelet count is 125. There is a wound culture, and I asked the nurse where was that wound culture sent from, and she states one of the drain sites they have sent. White count is 13.2 today, hemoglobin 9.1, hematocrit 27.6. Her sodium still is 120, remains low, potassium is 3.2, creatinine 0.5. She is DNR and DNI. Her sugars are 309. ASSESSMENT AND PLAN: She remains on antibiotics at this time, and creatinine is 0.5. Sodium still remains low at 120, and she is on Merrem, vancomycin, and Maxipime at this time. We will follow the culture reports and continue antibiotics at this time. Patient remains with hyponatremia. Liborio Maravilla MD
[2017-06-06] MEDS: Albuterol-Ipratrop 3 mg / 0.5 (3 ml) UD INH SCH ×6 (00:50→20:26)
[2017-06-06] MEDS: Acetaminophen 160 mg/5 ml UD PO PRN (01:13)
[2017-06-06 06:41] LABS: BASO % 0.3 % (0.0-2.0); EOS % 0.2 % (0.0-4.0); HEMOGLOBIN 8.4 g/dL (11.0-16.0); LYMPH % 9.4 % (20.0-40.0); MEAN CELL VOLUME 83.2 fL (81.0-99.0); MEAN CORPUSCULAR HEMOGLOBIN 27.8 pg (27.0-31.0); MEAN CORPUSCULAR HGB CONC 33.4 g/dL (33.0-37.0); MONO # 0.6 K/uL (0.0-0.8); MONO % 5.7 % (0.0-10.0); NEUT # 9.3 K/uL (1.8-7.0); NEUT % 84.4 % (50.0-75.0); PLATELET COUNT 361 K/uL (130-400); RBC 3.02 Mil/uL (3.80-5.20); RED CELL DISTRIBUTION WIDTH 18.7 % (11.5-14.5); WHITE BLOOD COUNT 11.1 K/uL (4.8-10.8)
[2017-06-06] MEDS: Sodium Chloride 0.9% 1,000 ML IV SCH (06:49)
[2017-06-06 07:19] LABS: ALBUMIN 2.2 g/dL (3.5-5.0); ALT/SGPT 18 U/L (9-52); AST/SGOT 16 U/L (14-36); BLOOD UREA NITROGEN 12 mg/dL (7-17); CALCIUM 6.5 mg/dl (8.6-10.4); GFR AFRICAN-AMERICAN > 60; GFR NON-AFRICAN AMERICAN > 60; MAGNESIUM 1.7 mg/dL (1.6-2.3)
--- NOTE | 2017-06-06 07:23 | CP.PCM.PN ---
<Megha Monk - Last Filed: 06/06/17 17:21> Subjective - Date & Time of Evaluation Date of Evaluation: 06/06/17 Time of Evaluation: 07:00 - Subjective Subjective: Medicine Progress Note: Patient was seen and examined at bedside in no acute distress. Patient reports that she feels swollen all over. Patient denies having chest pain, nausea, vomiting, fevers, headaches, and shortness of breath. Objective - Vital Signs/Intake and Output Vital Signs (last 24 hours): Temp Pulse Resp BP Pulse Ox 97.9 F 87 20 118/70 100 06/06/17 04:30 06/06/17 04:30 06/06/17 04:30 06/06/17 04:30 06/06/17 04:30 Intake and Output: 06/06/17 06/06/17 06:59 18:59 Intake Total 1850 Output Total 875 Balance 975 - Medications Medications: Current Medications Acetaminophen (Tylenol 160mg/5ml Oral Soln) 160 mg PO Q4H PRN PRN Reason: Pain, moderate (4-7) Last Admin: 06/06/17 01:13 Dose: 160 mg Albumin Human (Albumin Human 5% (12.5 Gm/250 Ml)) 12.5 gm IV DAILY [facility] Stop: 06/07/17 10:01 Last Admin: 06/05/17 15:54 Dose: 12.5 gm Albuterol/Ipratropium (Duoneb 3 Mg/0.5 Mg (3 Ml) Ud) 3 ml INH RQ4 [facility] Last Admin: 06/06/17 05:29 Dose: Not Given Diltiazem HCl (Cardizem Cd) 120 mg PO DAILY [facility] Last Admin: 06/05/17 10:51 Dose: 120 mg Heparin Sodium (Porcine) (Heparin) 5,000 units SC Q8 [facility] Last Admin: 06/05/17 13:25 Dose: 5,000 units Vancomycin HCl (Vancocin 750mg/D5w 150 Ml) 150 mls @ 100 mls/hr IVPB Q24H [facility] Stop: 06/08/17 18:01 Last Admin: 06/05/17 18:17 Dose: 100 mls/hr Sodium Chloride (Sodium Chloride 0.9%) 1,000 mls @ 100 mls/hr IV .Q10H [facility] Last Admin: 06/06/17 06:49 Dose: 100 mls/hr Meropenem 1 gm/ Sodium (Chloride) 100 mls @ 50 mls/hr IVPB Q12H [facility] Last Admin: 06/05/17 22:19 Dose: 50 mls/hr Insulin Aspart (Novolog) 0 unit SC ACHS [facility] PRN Reason: Protocol Last Admin: 06/05/17 21:19 Dose: Not Given Insulin Aspart (Novolog) 3 unit SC AC [facility] Last Admin: 06/05/17 17:27 Dose: 3 unit Insulin Glargine (Lantus) 20 unit SC HS [facility] Last Admin: 06/05/17 21:20 Dose: Not Given Labetalol HCl (Trandate) 100 mg PO BID [facility] Last Admin: 06/05/17 18:17 Dose: 100 mg Oxycodone/Acetaminophen (Percocet 5/325 Mg Tab) 1 tab PO Q6H PRN PRN Reason: Pain, severe (8-10) Stop: 06/07/17 11:10 Pantoprazole Sodium (Protonix Ec Tab) 40 mg PO DAILY [facility] Last Admin: 06/05/17 10:51 Dose: 40 mg Saccharomyces Boulardii (Florastor) 250 mg PO DAILY [facility] Last Admin: 06/05/17 10:51 Dose: 250 mg - Labs Labs: 06/06/17 06:34 06/06/17 06:34 PT 16.6 SECONDS (9.7-12.2) H 06/05/17 07:23 INR 1.4 06/05/17 07:23 APTT 31 SECONDS (21-34) 05/25/17 07:51 - Constitutional Appears: No Acute Distress - Head Exam Head Exam: ATRAUMATIC, NORMAL INSPECTION - Eye Exam Eye Exam: EOMI, Normal appearance - ENT Exam ENT Exam: Mucous Membranes Moist - Respiratory Exam Respiratory Exam: Clear to Ausculation Bilateral, NORMAL BREATHING PATTERN - Cardiovascular Exam Cardiovascular Exam: REGULAR RHYTHM, +S1, +S2 - GI/Abdominal Exam GI & Abdominal Exam: Soft, Normal Bowel Sounds. absent: Tenderness - Extremities Exam Extremities Exam: Normal Inspection - Neurological Exam Neurological Exam: Alert, Awake, Oriented x3 - Psychiatric Exam Psychiatric exam: Normal Affect, Normal Mood - Skin Skin Exam: Normal Color, Warm Assessment and Plan - Assessment and Plan (Free Text) Assessment: 1). Sigmoid colon mass/Liver lesion likely mets/Weight loss and abdominal pain * CT-Abd/Pelvis on admission showed 8.6 cm sigmoid mass with extensive hepatic metastasis. Bilateral renal cysts with large right upper pole renal cyst. Small bilateral pleural effusion and small pericardial effusion. Small hiatal hernia. Possible small diverticulum of the herniated stomach * Repeat Abd/Pel CT (05/30): no ureteral injury; bulk tumor in pelvis and hepatic mets disease; increasing pleural effusion in consolidative changes at the lung base; stable pericardial effusion; severe post-op anasarca. * CEA elevated @ 11.6. (Normal = 0-3.0) * Colonscopy (05/22/17): Non-bleeding external and internal hemorrhoids. 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 At the level of the distal sigmoid colon, contrast slowly traversed through a very thin and irregular channel to the level of the mid sigmoid at the site of the known sigmoid carcinoma. Contrast did not flow freely past this level. Exam was subsequently terminated. These findings were concerning for a near complete obstruction of the bowel lumen from the adjacent obstructing tumor. * Venous dopplers UE&LE b/l ordered due to edema and cancer: f/u results * Calorie count and monitoring Consults * GI consult Dr Foster ,appreciated * recommends peripheral hyperalimentation * Started PPN on 06/01/17 with electrolytes - PPN stopped 06/02 due to elevated glucose - Dietary Consult --> help appreciated * Dr Bright oncology consult - Recs appreciated * suggests consulting IR for FNA biopsy of liver lesions to obtain diagnosis * Surgery consult Dr Richard-appreciated * 05/25/17: Patient underwent laparotomy with diverting colostomy and liver biopsy. She was found to have the colonic mass invading the bladder and therefore was not entirely resectable * Liver Biopsy: necrotic tissue * NGT removed on 05/29/17 * Discontinued naqvi 05/31 * Patient scheduled for osteomy revision on 06/06/17 was canceled per surgery due to hyponatremia * IR consulted for FNA biopsy of liver lesions for cancer diagnosis; help appreciated * Liver FNA biopsy: fragments of adenocarcinoma associated wiht necrosis, consistent with colonic primary Medications: * HOLD- Dilaudid 0.5mg IV Q4 PRN for pain control * Tylenol PRN for pain 2). Sepsis * leukocytosis, bandemia * procalcitonin trending down: 4.15 --> 1.82--> 0.78 * Blood cx (05/28): no growth; urine cx: no growth * Peritoneal fluid stain: negative * Repeat blood cultures (05/29/17): negative * UA: 1+ protein, 1+ blood, 1+ LE, WBC29, RBC32, Occ bacteria * ID consulted, help appreciated * Meropenem 1gm IV Q12 (started 05/30/17) * Vanco 750mg IV Q24 (started 06/03/17 for 5days) * Discontinued Flagyl 500mg IV Q8h (started 05/30/17) * CXR (06/01): moderate left, small right pleural effusion; moderate venous congestions; confluent opacities in left mid to lower and right mid to lower lung; cardiomegaly * DARRYL drain cx: f/u results 3). DM 2 * Aspart ISS Q6H Low Dose * Accuchecks -moderate * Lantus 20 units HS (increased from 10 units on 06/03) * Novolog 3 units SCqAC * A1c: 8.4 4).Hypertension * Labetolol 100mg Q12H, Enalapril 15 mg Daily, and Cardizem [id number] Daily 5). Anemia * H/H stable * F/U: Iron Sat, Iron/TIBC, Ferritin, and Reticulocyte Count * S/P Transfusion upon admission * Continue to monitor 6). Pericardial effusion/cardiomegaly * Cardiology Consulted (Dr. Portillo) - help appreciated * as per Dr. Portillo, continue medical therapy; effusion is small; LV function is normal * ECHO (05/20/17): Diastolic Dysfunction Grade I-abnormal relaxation pattern, Trace TR and MR 7). Bilateral Renal Cysts * U/S Renal 05/26/17: Right Upper Pole renal cyst measures approximately 10.4x8.3x9.2 cm. Left upper pole renal cyst measures 2.2x1.4x1.6 cm * Will need follow up U/S in 6 months 8). Respiratory Acidosis * Patient was extubated on 05/26/17 and placed on BiPap and Bicarb Drip * Patient no longer on BiPap or bicarb drip 9). Pleural Effusion * CXR (06/01): moderate left, small right pleural effusion; moderate venous congestions; confluent opacities in left mid to lower and right mid to lower lung; cardiomegaly * Chest CT: moderate b/l pleural effusion with b/l lower lobe segmental/ subsegmental atelectasis; cardiomegaly with small pericardial effusion; probably widespread hepatic metastasis. * Continue Duonebs Q4 * Pulmonology consulted, Dr. Cherry, help appreciated * IR consulted for therapeutic thoracentesis for pleural effusions; as per IR, US showed small pleural effusions not amenable to thoracentisis. 10.) Hyponatremia - Nephrology Consult: Dr. Lennon --> help appreciated - Urine sodium 43 - Urine Osmolality 563 - 1.5L of fluid restriction - Lasix 20mg Po daily - Sodium Chloride 2gm PO TID 11). DVT and GI prophylaxis * Heparin 5000sc Q8- HOLD * Dilaudid 0.5 mg IV Q4H PRN Severe Pain * Protonix 40 mg IV Q12H * PT/OT * Incentive spirometry * Palliative care: patient is DNR/DNI as of 05/29/17. Polst form completed. * Diet: Diabetic diet Son Dominick Mckoy ([phone]) Nializa Prabhakar ([phone]) as POA/Health Care Proxy Disposition: Patient scheduled for osteomy revision on 06/06/[address] Richard. NPO@MT, hold heparin; Patient accepted to [facility]. Case discussed with Dr. Jonel Monk PGY-1 <Arya Remy - Last Filed: 06/06/17 20:40> Objective - Vital Signs/Intake and Output Vital Signs (last 24 hours): Temp Pulse Resp BP Pulse Ox 98.8 F 91 H 20 130/82 98 06/06/17 17:34 06/06/17 17:34 06/06/17 17:34 06/06/17 17:34 06/06/17 15:05 Intake and Output: 06/06/17 06/07/17 18:59 06:59 Intake Total 0 Output Total 290 Balance -290 - Medications Medications: Current Medications Acetaminophen (Tylenol 650mg/20.3ml Solution Ud) 650 mg PO Q4H PRN PRN Reason: Pain, moderate (4-7) Albumin Human (Albumin Human 5% (12.5 Gm/250 Ml)) 12.5 gm IV DAILY [facility] Stop: 06/07/17 10:01 Last Admin: 06/06/17 12:19 Dose: 12.5 gm Albuterol/Ipratropium (Duoneb 3 Mg/0.5 Mg (3 Ml) Ud) 3 ml INH RQ4 [facility] Last Admin: 06/06/17 20:26 Dose: Not Given Diltiazem HCl (Cardizem Cd) 120 mg PO DAILY [facility] Last Admin: 06/06/17 09:11 Dose: 120 mg Furosemide (Lasix) 20 mg PO DAILY [facility] Last Admin: 06/06/17 17:25 Dose: 20 mg Heparin Sodium (Porcine) (Heparin) 5,000 units SC Q8 [facility] Last Admin: 06/06/17 13:41 Dose: 5,000 units Meropenem 1 gm/ Sodium (Chloride) 100 mls @ 50 mls/hr IVPB Q12H [facility] Last Admin: 06/06/17 10:48 Dose: 50 mls/hr Vancomycin HCl (Vancocin 750mg/D5w 150 Ml) 150 mls @ 125 mls/hr IV Q24H [facility] Stop: 06/12/17 18:01 Insulin Aspart (Novolog) 0 unit SC ACHS [facility] PRN Reason: Protocol Last Admin: 06/06/17 16:43 Dose: 3 unit Insulin Aspart (Novolog) 7 unit SC AC [facility] Insulin Glargine (Lantus) 32 unit SC HS [facility] Labetalol HCl (Trandate) 100 mg PO BID [facility] Last Admin: 06/06/17 17:25 Dose: 100 mg Pantoprazole Sodium (Protonix Ec Tab) 40 mg PO DAILY [facility] Last Admin: 06/06/17 09:11 Dose: 40 mg Saccharomyces Boulardii (Florastor) 250 mg PO DAILY [facility] Last Admin: 06/06/17 09:10 Dose: 250 mg Sodium Chloride (Sodium Chloride Tab) 2 gm PO TID [facility] Last Admin: 06/06/17 17:25 Dose: 2 gm - Labs Labs: 06/06/17 06:34 06/06/17 19:12 PT 16.6 SECONDS (9.7-12.2) H 06/05/17 07:23 INR 1.4 06/05/17 07:23 APTT 31 SECONDS (21-34) 05/25/17 07:51 Attending/Attestation - Attestation I have personally seen and examined this patient.: Yes I have fully participated in the care of the patient.: Yes I have reviewed all pertinent clinical information, including history, physical exam and plan: Yes Notes (Text): 06/06/17 20:34 Patient was seen and examined shortly before being taken down for surgery. Exam, assessment and plan were gone over with the resident. 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 Explained that from Medicine Team perspective that Na and Blood Glucose should not interfere with the surgery. However, to address Surgery Team's concerns: Nephrology Dr. Lennon consulted to help correct the Na: NaCl PO and Lasix have been ordered. Patient is eating more consistently the meals that Son has been bringing from home therefore Lantus increased to 32 units SC HS starting 06/06/17 and Regular Insulin increased to 7 units based upon the past 24 hours of Accuchecks. Hopefully plan for surgery 06/08/17. Arya Remy D.O.
[2017-06-06] MEDS ORDERED: Potassium Chloride 20 mEq ER Tab PO ONE (07:41)
[2017-06-06] MEDS: Saccharomyces Boulardi 250 mg Cap PO SCH (09:10)
[2017-06-06] MEDS: Pantoprazole 40 mg EC Tab PO SCH (09:11)
[2017-06-06] MEDS: diltiaZEM 120 mg/24 Hours CD Cap PO SCH (09:11)
[2017-06-06] MEDS: (Novolog) Insulin Aspart, Recombinant 100 u/ml 10 ml vial SC SCH ×7 (09:16→22:13)
[2017-06-06 09:58] LABS: ANISOCYTOSIS MODERATE; LARGE PLATELETS PRESENT; LYMPHOCYTE 6 % (20-40); MONOCYTE 4 % (0-10); NEUTROPHIL 90 % (50-75); PLATELET ESTIMATE NORMAL (NORMAL); TOTAL CELLS COUNTED 100
[2017-06-06 09:59] LABS: GIANT PLATELETS PRESENT; HYPOCHROMIC SLIGHT; POLYCHROMIC SLIGHT
[2017-06-06 10:00] LABS: TOXIC GRANULATION PRESENT
[2017-06-06] MEDS: Meropenem 1 GM in Sodium Chloride 0.9% 100 ML IVPB SCH ×2 (10:48→22:11)
[2017-06-06] MEDS ORDERED: Potassium Chloride 20 MEQ in Dextrose 5%/0.9% NS 1,000 ML IV SCH (11:00)
--- NOTE | 2017-06-06 11:05 | VASCLAB ---
PROCEDURE: Upper Extremity Venous Duplex Exam HISTORY: edematous PRIORS: None. TECHNIQUE: Bilateral upper extremity, internal jugular, subclavian, axillary, brachial, ulnar, radial, basilic and upper cephalic veins were evaluated. Flow was assessed with color Doppler, compressibility, assessment of phasic flow and augmentation response. Report prepared by HECTOR Love, RVT FINDINGS: RIGHT: 1. Internal Jugular: 1.1. Compressibility - Fully compressible: Thrombus - None : Flow - Phasic: Augmentation -Normal: Reflux - None. 2. Subclavian: 2.1. Compressibility - Fully compressible: Thrombus - None : Flow - Phasic: Augmentation -Normal: Reflux - None. 3. Axillary: 3.1. Compressibility - Fully compressible: Thrombus - None : Flow - Phasic: Augmentation -Normal: Reflux - None. 4. Brachial: 4.1. Compressibility - Fully compressible: Thrombus - None: Flow - Phasic: Augmentation -Normal: Reflux - None. 5. Ulnar: 5.1. Compressibility - Fully compressible: Thrombus - None: Flow - Phasic: Augmentation -Normal: Reflux - None. 6. Radial: 6.1. Compressibility - Fully compressible: Thrombus - None: Flow - Phasic: Augmentation - Normal: Reflux - None. 7. Cephalic: 7.1. Compressibility - Fully compressible: Thrombus - None: Flow - Phasic: Augmentation -Normal: Reflux - None. 8. Basilic: 8.1. Compressibility - Incompressible: Thrombus - Chronic: Flow - Absent : Augmentation -None: Reflux - None. LEFT: 1. Internal Jugular: 1.1. Compressibility - Fully compressible: Thrombus - None : Flow - Phasic: Augmentation -Normal: Reflux - None. 2. Subclavian: 2.1. Compressibility - Fully compressible: Thrombus - None : Flow - Phasic: Augmentation -Normal: Reflux - None. 3. Axillary: 3.1. Compressibility - Fully compressible: Thrombus - None : Flow - Phasic: Augmentation -Normal: Reflux - None. 4. Brachial: 4.1. Compressibility - Fully compressible: Thrombus - None: Flow - Phasic: Augmentation -Normal: Reflux - None. 5. Ulnar: 5.1. Compressibility - Fully compressible: Thrombus - None: Flow - Phasic: Augmentation -Normal: Reflux - None. 6. Radial: 6.1. Compressibility - Fully compressible: Thrombus - None: Flow - Phasic: Augmentation - Normal: Reflux - None. 7. Cephalic: 7.1. Compressibility - Fully compressible: Thrombus - None: Flow - Phasic: Augmentation -Normal: Reflux - None. 8. Basilic: 8.1. Compressibility - Fully compressible: Thrombus - None: Flow - Phasic: Augmentation -Normal: Reflux - None. OTHER FINDINGS: Right: None. Left: None. 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 No evidence of deep vein thrombosis of the right upper extremity with excellent venous flow. Normal valve function noted of the right side. Left: No evidence of vein thrombosis of the left upper extremity with excellent venous flow. Normal valve function noted of the left side.
--- NOTE | 2017-06-06 11:07 | VASCLAB ---
PROCEDURE: Lower Extremity Venous Duplex Exam. HISTORY: edematous, cancer PRIORS: None. TECHNIQUE: Bilateral common femoral, femoral, popliteal and posterior tibial, peroneal and great saphenous veins were evaluated. Flow was assessed with color Doppler, compressibility, assessment of phasic flow and augmentation response. Report prepared by Matt Mclaughlin, HECTOR, RVT FINDINGS: RIGHT: 1. Common Femoral Vein: 1.1. Compressibility - Fully compressible: Thrombus - None : Flow - Phasic: Augmentation -Normal: Reflux - None. 2. Femoral Vein: 2.1. Compressibility - Fully compressible: Thrombus - None : Flow - Phasic: Augmentation -Normal: Reflux - None. 3. Popliteal Vein: 3.1. Compressibility - Fully compressible: Thrombus - None : Flow - Phasic: Augmentation -Normal: Reflux - None. 4. Posterior Tibial Vein: 4.1. Compressibility - Fully compressible: Thrombus - None: Flow - Phasic: Augmentation -Normal: Reflux - None. 5. Peroneal Vein: 5.1. Compressibility - Fully compressible: Thrombus - None: Flow - Phasic: Augmentation -Normal: Reflux - None. 6. Great Saphenous Vein: 6.1. Compressibility - Fully compressible: Thrombus - None: Flow - Phasic: Augmentation - Normal: Reflux - None. LEFT: 1. Common Femoral Vein: 1.1. Compressibility - Fully compressible: Thrombus - None: Flow - Phasic: Augmentation -Normal: Reflux - None. 2. Femoral Vein: 2.1. Compressibility - Fully compressible: Thrombus - None: Flow - Phasic: Augmentation -Normal: Reflux - None. 3. Popliteal Vein: 3.1. Compressibility - Fully compressible: Thrombus - None : Flow - Phasic: Augmentation -Normal: Reflux - None. 4. Posterior Tibial Vein: 4.1. Compressibility - Fully compressible: Thrombus - None: Flow - Phasic: Augmentation -Normal: Reflux - None. 5. Peroneal Vein: 5.1. Compressibility - Fully compressible: Thrombus - None: Flow - Phasic: Augmentation -Normal: Reflux - None. 6. Great Saphenous Vein: 6.1. Compressibility - Fully compressible: Thrombus - None: Flow - Phasic: Augmentation - Normal: Reflux - None. OTHER FINDINGS: Technically limited compression due to severe swelling and patient intolerance to pain. IMPRESSION: Right: No evidence of deep or superficial vein thrombosis of the right lower extremity. Normal valve function noted of the right side. Left: No evidence of deep or superficial vein thrombosis of the left lower extremity. Normal valve function noted of the left side.
--- NOTE | 2017-06-06 11:11 | CP.PCM.PN ---
Subjective - Date & Time of Evaluation Date of Evaluation: 06/06/17 Time of Evaluation: 06:40 - Subjective Subjective: General Surgery Pt S&E, NAEO. pt without complaints. OR was planned for today but anesthesia was concerned about sodium levels so case was cancelled. Dr. Richard and Dr. Remy discussed the case. Objective - Vital Signs/Intake and Output Vital Signs (last 24 hours): Temp Pulse Resp BP Pulse Ox 98.3 F 82 18 134/69 95 06/06/17 08:00 06/06/17 08:00 06/06/17 08:00 06/06/17 08:00 06/06/17 08:00 Intake and Output: 06/06/17 06/06/17 06:59 18:59 Intake Total 1850 Output Total 875 120 Balance 975 -120 - Medications Medications: Current Medications Acetaminophen (Tylenol 160mg/5ml Oral Soln) 160 mg PO Q4H PRN PRN Reason: Pain, moderate (4-7) Last Admin: 06/06/17 01:13 Dose: 160 mg Albumin Human (Albumin Human 5% (12.5 Gm/250 Ml)) 12.5 gm IV DAILY [facility] Stop: 06/07/17 10:01 Last Admin: 06/05/17 15:54 Dose: 12.5 gm Albuterol/Ipratropium (Duoneb 3 Mg/0.5 Mg (3 Ml) Ud) 3 ml INH RQ4 [facility] Last Admin: 06/06/17 08:09 Dose: Not Given Diltiazem HCl (Cardizem Cd) 120 mg PO DAILY [facility] Last Admin: 06/06/17 09:11 Dose: 120 mg Heparin Sodium (Porcine) (Heparin) 5,000 units SC Q8 [facility] Last Admin: 06/05/17 13:25 Dose: 5,000 units Vancomycin HCl (Vancocin 750mg/D5w 150 Ml) 150 mls @ 100 mls/hr IVPB Q24H [facility] Stop: 06/08/17 18:01 Last Admin: 06/05/17 18:17 Dose: 100 mls/hr Meropenem 1 gm/ Sodium (Chloride) 100 mls @ 50 mls/hr IVPB Q12H [facility] Last Admin: 06/06/17 10:48 Dose: 50 mls/hr Insulin Aspart (Novolog) 0 unit SC ACHS [facility] PRN Reason: Protocol Last Admin: 06/06/17 09:16 Dose: Not Given Insulin Aspart (Novolog) 3 unit SC AC [facility] Last Admin: 06/06/17 09:17 Dose: 3 unit Insulin Glargine (Lantus) 20 unit SC HS [facility] Last Admin: 06/05/17 21:20 Dose: Not Given Labetalol HCl (Trandate) 100 mg PO BID [facility] Last Admin: 06/06/17 09:11 Dose: 100 mg Oxycodone/Acetaminophen (Percocet 5/325 Mg Tab) 1 tab PO Q6H PRN PRN Reason: Pain, severe (8-10) Stop: 06/07/17 11:10 Pantoprazole Sodium (Protonix Ec Tab) 40 mg PO DAILY [facility] Last Admin: 06/06/17 09:11 Dose: 40 mg Saccharomyces Boulardii (Florastor) 250 mg PO DAILY [facility] Last Admin: 06/06/17 09:10 Dose: 250 mg - Labs Labs: 06/06/17 06:34 06/06/17 06:34 PT 16.6 SECONDS (9.7-12.2) H 06/05/17 07:23 INR 1.4 06/05/17 07:23 APTT 31 SECONDS (21-34) 05/25/17 07:51 - Constitutional Appears: Non-toxic, No Acute Distress - Head Exam Head Exam: ATRAUMATIC, NORMOCEPHALIC - Eye Exam Eye Exam: EOMI. absent: Scleral icterus - Respiratory Exam Respiratory Exam: NORMAL BREATHING PATTERN. absent: Respiratory Distress - GI/Abdominal Exam GI & Abdominal Exam: Soft. absent: Distended, Tenderness Additional comments: Incision has edel. No drainage. Stoma has output - Back Exam Back Exam: absent: CVA tenderness (L), CVA tenderness (R) - Neurological Exam Neurological Exam: Alert, Awake, Oriented x3 - Skin Skin Exam: Dry, Warm Assessment and Plan - Assessment and Plan (Free Text) Assessment: 86F POD#12 s/p exploratory laparotomy w/diverting colostomy & liver biopsy Plan: Replete electrolytes Nephro consulted, appreciate any further recs Ambulate/PT Encouraged IS use D/W Dr. Hilary Ruffin PGY4
[2017-06-06] MEDS: Albumin Human 5% (12.5 gm/250 ml) IV SCH (12:19)
--- NOTE | 2017-06-06 12:51 | US ---
PROCEDURE: Limited ultrasound was performed for purposes of thoracentesis HISTORY: Pleural effusion COMPARISON: TECHNIQUE: FINDINGS: Limits sonographic evaluation of the left and right chest was performed. There is a very small amount of pleural effusion. The mild fluid is not amenable to thoracentesis. IMPRESSION: A very small amount of left pleural effusion not amenable to thoracentesis.
[2017-06-06 14:36] LABS: SQUAMOUS EPITHIAL < 1 /hpf (0-5); URINE BACTERIA RARE (<OCC); URINE BILIRUBIN NEGATIVE (NEGATIVE); URINE BLOOD 1+ (NEGATIVE); URINE CALCIUM OXALATE CRYSTALS OCC /hpf (<OCC); URINE CLARITY Hazy (Clear); URINE COLOR Yellow (YELLOW); URINE GLUCOSE (UA) 3+ mg/dL (Normal); URINE LEUKOCYTE ESTERASE 1+ Leu/uL (Negative); URINE NITRATE NEGATIVE (NEGATIVE); URINE PROTEIN 1+ mg/dL (NEGATIVE); URINE UROBILINOGEN NORMAL mg/dL (0.2-1.0)
[2017-06-06] MEDS ORDERED: Vancomycin 0.75 GM in Sodium Chloride 0.9% 150 ML IVPB SCH (18:00)
[2017-06-06] MEDS: Vancomycin 750mg/D5W 150 ml 150 ML IVPB SCH (18:15)
[2017-06-06 19:21] LABS: CALCIUM 7.4 mg/dl (8.6-10.4); GFR AFRICAN-AMERICAN > 60; GFR NON-AFRICAN AMERICAN > 60
[2017-06-06 19:23] LABS: BLOOD UREA NITROGEN 12 mg/dL (7-17)
[2017-06-06] MEDS ORDERED: (Novolog) Insulin Aspart, Recombinant 100 u/ml 10 ml vial SC SCH (20:33)
--- NOTE | 2017-06-06 21:17 | CP.PCM.PN ---
Subjective - Date & Time of Evaluation Date of Evaluation: 06/06/17 Time of Evaluation: 13:30 - Subjective Subjective: Feels swollen Objective - Vital Signs/Intake and Output Vital Signs (last 24 hours): Temp Pulse Resp BP Pulse Ox 98 F 90 20 130/70 98 06/06/17 19:15 06/06/17 19:15 06/06/17 19:15 06/06/17 19:15 06/06/17 15:05 Intake and Output: 06/06/17 06/07/17 18:59 06:59 Intake Total 0 300 Output Total 290 Balance -290 300 - Medications Medications: Current Medications Acetaminophen (Tylenol 650mg/20.3ml Solution Ud) 650 mg PO Q4H PRN PRN Reason: Pain, moderate (4-7) Albumin Human (Albumin Human 5% (12.5 Gm/250 Ml)) 12.5 gm IV DAILY [facility] Stop: 06/07/17 10:01 Last Admin: 06/06/17 12:19 Dose: 12.5 gm Albuterol/Ipratropium (Duoneb 3 Mg/0.5 Mg (3 Ml) Ud) 3 ml INH RQ4 [facility] Last Admin: 06/06/17 20:26 Dose: Not Given Diltiazem HCl (Cardizem Cd) 120 mg PO DAILY [facility] Last Admin: 06/06/17 09:11 Dose: 120 mg Furosemide (Lasix) 20 mg PO DAILY [facility] Last Admin: 06/06/17 17:25 Dose: 20 mg Heparin Sodium (Porcine) (Heparin) 5,000 units SC Q8 [facility] Last Admin: 06/06/17 13:41 Dose: 5,000 units Meropenem 1 gm/ Sodium (Chloride) 100 mls @ 50 mls/hr IVPB Q12H [facility] Last Admin: 06/06/17 10:48 Dose: 50 mls/hr Vancomycin HCl (Vancocin 750mg/D5w 150 Ml) 150 mls @ 125 mls/hr IV Q24H [facility] Stop: 06/12/17 18:01 Insulin Aspart (Novolog) 0 unit SC ACHS [facility] PRN Reason: Protocol Last Admin: 06/06/17 16:43 Dose: 3 unit Insulin Aspart (Novolog) 7 unit SC AC [facility] Insulin Glargine (Lantus) 32 unit SC HS [facility] Labetalol HCl (Trandate) 100 mg PO BID [facility] Last Admin: 06/06/17 17:25 Dose: 100 mg Pantoprazole Sodium (Protonix Ec Tab) 40 mg PO DAILY [facility] Last Admin: 06/06/17 09:11 Dose: 40 mg Saccharomyces Boulardii (Florastor) 250 mg PO DAILY [facility] Last Admin: 06/06/17 09:10 Dose: 250 mg Sodium Chloride (Sodium Chloride Tab) 2 gm PO TID [facility] Last Admin: 06/06/17 17:25 Dose: 2 gm - Labs Labs: 06/06/17 06:34 06/06/17 19:12 PT 16.6 SECONDS (9.7-12.2) H 06/05/17 07:23 INR 1.4 06/05/17 07:23 APTT 31 SECONDS (21-34) 05/25/17 07:51 - Head Exam Head Exam: ATRAUMATIC - Eye Exam Eye Exam: Normal appearance - Respiratory Exam Respiratory Exam: NORMAL BREATHING PATTERN - Cardiovascular Exam Cardiovascular Exam: +S1, +S2 - GI/Abdominal Exam GI & Abdominal Exam: Normal Bowel Sounds - Extremities Exam Extremities Exam: Pedal Edema Assessment and Plan (1) Colon adenocarcinoma Assessment & Plan: with liver metastasis KRAS to be added outpatient treatment Status: Acute (2) Anemia Status: Acute (3) Coagulopathy Status: Acute
[2017-06-06] MEDS ORDERED: (Lantus) Insulin Glargine, Recombinant SC SCH (22:00)
[2017-06-07] MEDS: Albuterol-Ipratrop 3 mg / 0.5 (3 ml) UD INH SCH ×6 (00:18→20:26)
--- NOTE | 2017-06-07 04:45 | CON ---
DATE: NEPHROLOGY CONSULTATION HISTORY OF PRESENT ILLNESS: An 86-year-old female with past medical history of hypertension, diabetes, initially presented on 05/19/2017 with left lower quadrant abdominal pain since previous one month. The patient subsequently found to have sigmoid colon mass. Nephrology now being consulted for hyponatremia. The patient initially presented with above symptoms having abdominal pain exacerbated by p.o. intake and also having nonbloody diarrhea with meals and later to having 30-pound weight loss in the previous 7 months. The patient underwent CT of abdomen and pelvis with IV contrast that showed large sigmoid mass with extensive hepatic metastasis. The patient underwent ex lap procedure on 05/25/2017 with plan to resect sigmoid mass, however, this was aborted in order to avoid injury to adjacent structures. Nevertheless, the patient did undergo diverting colostomy. The patient has been restarted on p.o. feeds for the past few days, is tolerating well. Denies any nausea, vomiting or diarrhea lately. The patient has been feeling rather weak and feels overwhelmed with all of the recent developments regarding her condition. The patient had been on IV fluids with normal saline at 100 mL per hour since the past 2 days. Serum sodium during this time has been fluctuating in the mid 120s. PAST MEDICAL HISTORY: As above. The patient only on oral medications for her diabetes. 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 FAMILY HISTORY: Hypertension, CVA. REVIEW OF SYSTEMS: CONSTITUTIONAL: Weight loss as above. HEENT: Denies any visual disturbances. RESPIRATORY: Denies any difficulty breathing. CARDIOVASCULAR: No chest pain or palpitations. GASTROINTESTINAL: As per HPI. GENITOURINARY: The patient currently with Bailey in place. MUSCULOSKELETAL: Reports generalized body pain. EXTREMITIES: Reporting increased leg edema since being in the hospital, not previously. SKIN: Denies any itching or rashes. NEURO: Denies any numbness in her feet. Has been having weakness lately in her lower extremities. PSYCHIATRIC: Not sleeping well. PHYSICAL EXAMINATION: VITAL SIGNS: This morning, blood pressure 134/69, heart rate 82, respirations 18, temperature 98.3, O2 sat 95% on nasal cannula oxygen. GENERAL: No distress, conversing coherently in full sentences. HEENT: Moist mucous membranes, nonicteric, no cervical lymphadenopathy. RESPIRATORY: Lungs clear to auscultation bilaterally. No rales, no rhonchi, no wheezes. CARDIOVASCULAR: Heart sounds S1 and S2 normal. No murmurs or gallops, no rubs. GASTROINTESTINAL: Abdomen is soft, mildly distended, mildly tender, ostomy in place. GENITOURINARY: No bladder distention, Bailey in place. EXTREMITIES: 2+ bilateral lower legs edema. SKIN: Warm. No cyanosis. NEUROLOGIC: No numbness of feet. Distal pulses 2+ bilateral. Dorsalis pedal pulses bilaterally. PSYCHIATRIC: Normal affect, normal mood. LABORATORY DATA: This morning, CBC: WBC 11.1, hemoglobin 8.4, hematocrit 25.2, platelets 361. Chemistry panel: Sodium 127, potassium 3.5, chloride 97, bicarbonate 24, BUN 12, creatinine 0.5, glucose 281, calcium 6.5, phosphorus 2.8, magnesium 1.7, albumin 2.2. Urine studies: Urine sodium 53, urine osmolality 563. UA, specific gravity 1.017, 1+ protein, 3+ glucose, 1+ blood. ASSESSMENT AND PLAN: 1. Hyponatremia. No evidence of volume depletion on exam. The patient has been adequately volume replenished with IV fluids. 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 Surgery Team concern noted for electrolyte imbalance. We will attempt to raise serum sodium by correcting hyperglycemia, mild hypokalemia and also with measures to decrease her high urine osmolality. Keep serum potassium around 4.0. We will supplement as needed with p.o. potassium chloride. The patient did not receive basal insulin last night due to her being scheduled for OR; however, should not completely hold basal insulin, but rather should decrease in half if she is going to be n.p.o. the next day. Will help correct hyponatremia. Start sodium chloride tablets 2 g t.i.d. Start Lasix 20 mg p.o. daily. Avoid giving meds in D5W. 2. Systemic inflammatory response syndrome/sepsis. The patient currently on antibiotics with meropenem 1 g q. 12 hours and vancomycin 750 mg q. 24 hours. Should check vancomycin trough before fourth dose and switch vancomycin to be given in normal saline instead of D5W. 3. Hypertension. Blood pressure relatively well controlled on labetalol 100 mg b.i.d. and diltiazem 120 mg daily, continue the same. 4. Proteinuria. The patient consistently with 1+ proteinuria on UA during this admission, previously negative in October of last year; may be indicative of underlying diabetic nephropathy. We will check random urine for microalbumin, protein and creatinine. 5. Acute kidney injury, resolved. Serum creatinine had increased from baseline of 0.5 to 1.2 about 10 days ago and creatinine clearance done at that time was reflective of the acute kidney injury state, but does not represent the patient's baseline renal function; should dose antibiotics for creatinine clearance above 60. 6. Hypocalcemia. Serum calcium when corrected for hypoalbuminemia is 7.9; etiology is unclear. We will obtain vitamin D 25-hydroxy and PTH levels. Thank you for this consult. We will be following closely. Jeremy Lennon MD
--- NOTE | 2017-06-07 07:19 | CP.PCM.PN ---
<Megha Monk - Last Filed: 06/07/17 16:19> Subjective - Date & Time of Evaluation Date of Evaluation: 06/07/17 Time of Evaluation: 07:00 - Subjective Subjective: Medicine Progress Note: Patient was seen and examined at bedside in the AM. Patient states she is frustrated with being in the hospital. She states her whole body is swollen. She states she is eating well but she is just feeling tired. Objective - Vital Signs/Intake and Output Vital Signs (last 24 hours): Temp Pulse Resp BP Pulse Ox 98.1 F 87 20 161/79 H 97 06/07/17 00:25 06/07/17 00:25 06/07/17 00:25 06/07/17 00:25 06/07/17 00:25 Intake and Output: 06/07/17 06/07/17 06:59 18:59 Intake Total 650 Output Total 1085 Balance -435 - Medications Medications: Current Medications Acetaminophen (Tylenol 650mg/20.3ml Solution Ud) 650 mg PO Q4H PRN PRN Reason: Pain, moderate (4-7) Albumin Human (Albumin Human 25% (12.5 Gm/50 Ml)) 12.5 gm IV ONCE ONE Stop: 06/07/17 10:01 Albuterol/Ipratropium (Duoneb 3 Mg/0.5 Mg (3 Ml) Ud) 3 ml INH RQ4 [facility] Last Admin: 06/07/17 04:25 Dose: 3 ml Diltiazem HCl (Cardizem Cd) 120 mg PO DAILY [facility] Last Admin: 06/06/17 09:11 Dose: 120 mg Furosemide (Lasix) 20 mg PO DAILY [facility] Last Admin: 06/06/17 17:25 Dose: 20 mg Heparin Sodium (Porcine) (Heparin) 5,000 units SC Q8 [facility] Last Admin: 06/07/17 06:05 Dose: 5,000 units Meropenem 1 gm/ Sodium (Chloride) 100 mls @ 50 mls/hr IVPB Q12H [facility] Last Admin: 06/06/17 22:11 Dose: 50 mls/hr Vancomycin HCl 0.75 gm/ Sodium (Chloride) 150 mls @ 125 mls/hr IVPB Q24H [facility] Last Admin: 06/07/17 01:54 Dose: 125 mls/hr Insulin Aspart (Novolog) 0 unit SC ACHS [facility] PRN Reason: Protocol Last Admin: 06/06/17 22:13 Dose: Not Given Insulin Aspart (Novolog) 7 unit SC AC [facility] Insulin Glargine (Lantus) 32 unit SC HS [facility] Last Admin: 06/06/17 22:09 Dose: 32 u Labetalol HCl (Trandate) 100 mg PO BID [facility] Last Admin: 06/06/17 17:25 Dose: 100 mg Pantoprazole Sodium (Protonix Ec Tab) 40 mg PO DAILY [facility] Last Admin: 06/06/17 09:11 Dose: 40 mg Saccharomyces Boulardii (Florastor) 250 mg PO DAILY [facility] Last Admin: 06/06/17 09:10 Dose: 250 mg Sodium Chloride (Sodium Chloride Tab) 2 gm PO TID [facility] Last Admin: 06/06/17 17:25 Dose: 2 gm - Labs Labs: 06/06/17 06:34 06/06/17 19:12 PT 16.6 SECONDS (9.7-12.2) H 06/05/17 07:23 INR 1.4 06/05/17 07:23 APTT 31 SECONDS (21-34) 05/25/17 07:51 - Constitutional Appears: No Acute Distress - Head Exam Head Exam: ATRAUMATIC, NORMAL INSPECTION - Eye Exam Eye Exam: EOMI, Normal appearance - ENT Exam ENT Exam: Mucous Membranes Moist - Respiratory Exam Respiratory Exam: Clear to Ausculation Bilateral, NORMAL BREATHING PATTERN - Cardiovascular Exam Cardiovascular Exam: REGULAR RHYTHM, +S1, +S2 - GI/Abdominal Exam GI & Abdominal Exam: Soft, Normal Bowel Sounds. absent: Tenderness Additional comments: colostomy - Extremities Exam Extremities Exam: Joint Swelling, Pedal Edema. absent: Calf Tenderness, Tenderness - Neurological Exam Neurological Exam: Alert, Awake, Oriented x3 - Psychiatric Exam Psychiatric exam: Agitated - Skin Skin Exam: Normal Color, Warm (patient is upset ) Assessment and Plan - Assessment and Plan (Free Text) Assessment: Later in the afternoon spoke with patient in regards to IV access. Discussed a possible PICC line placement tomorrow morning. Patient states she agrees but would like to wait to tomorrow morning 06/08/17. Will speak with patient tomorrow morning and consult the PICC line nurse. 1). Sigmoid colon mass/Liver lesion likely mets/Weight loss and abdominal pain * CT-Abd/Pelvis on admission showed 8.6 cm sigmoid mass with extensive hepatic metastasis. Bilateral renal cysts with large right upper pole renal cyst. Small bilateral pleural effusion and small pericardial effusion. Small hiatal hernia. Possible small diverticulum of the herniated stomach * Repeat Abd/Pel CT (05/30): no ureteral injury; bulk tumor in pelvis and hepatic mets disease; increasing pleural effusion in consolidative changes at the lung base; stable pericardial effusion; severe post-op anasarca. * CEA elevated @ 11.6. (Normal = 0-3.0) * Colonscopy (05/22/17): Non-bleeding external and internal hemorrhoids. 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 At the level of the distal sigmoid colon, contrast slowly traversed through a very thin and irregular channel to the level of the mid sigmoid at the site of the known sigmoid carcinoma. Contrast did not flow freely past this level. Exam was subsequently terminated. These findings were concerning for a near complete obstruction of the bowel lumen from the adjacent obstructing tumor. * Venous dopplers UE&LE b/l ordered due to edema and cancer: f/u results * Calorie count and monitoring Consults * GI consult Dr Foster ,appreciated * recommends peripheral hyperalimentation * Started PPN on 06/01/17 with electrolytes - PPN stopped 06/02 due to elevated glucose - Dietary Consult --> help appreciated * Dr Bright oncology consult - Recs appreciated * suggests consulting IR for FNA biopsy of liver lesions to obtain diagnosis * Surgery consult Dr Richard-appreciated * 05/25/17: Patient underwent laparotomy with diverting colostomy and liver biopsy. 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 Sepsis * leukocytosis, bandemia * procalcitonin trending down: 4.15 --> 1.82--> 0.78 * Blood cx (05/28): no growth; urine cx: no growth * Peritoneal fluid stain: negative * Repeat blood cultures (05/29/17): negative * UA: 1+ protein, 1+ blood, 1+ LE, WBC29, RBC32, Occ bacteria * ID consulted, help appreciated * Meropenem 1gm IV Q12 (started 05/30/17) * Vanco 750mg IV Q24 (started 06/03/17 for 5days) * Discontinued Flagyl 500mg IV Q8h (started 05/30/17) * CXR (06/01): moderate left, small right pleural effusion; moderate venous congestions; confluent opacities in left mid to lower and right mid to lower lung; cardiomegaly * DARRYL drain cx: f/u results 3). DM 2 * Aspart ISS Q6H Low Dose * Accuchecks -moderate * Lantus 20 units HS (increased from 10 units on 06/03) * Novolog 3 units SCqAC * A1c: 8.4 4).Hypertension * Labetolol 100mg Q12H, Enalapril 15 mg Daily, and Cardizem OF330hc Daily 5). Anemia * H/H stable * F/U: Iron Sat, Iron/TIBC, Ferritin, and Reticulocyte Count * S/P Transfusion upon admission * Continue to monitor 6). Pericardial effusion/cardiomegaly * Cardiology Consulted (Dr. Portillo) - help appreciated * as per Dr. Portillo, continue medical therapy; effusion is small; LV function is normal * ECHO (05/20/17): Diastolic Dysfunction Grade I-abnormal relaxation pattern, Trace TR and MR 7). Bilateral Renal Cysts * U/S Renal 05/26/17: Right Upper Pole renal cyst measures approximately 10.4x8.3x9.2 cm. Left upper pole renal cyst measures 2.2x1.4x1.6 cm * Will need follow up U/S in 6 months 8). Respiratory Acidosis * Patient was extubated on 05/26/17 and placed on BiPap and Bicarb Drip * Patient no longer on BiPap or bicarb drip 9). Pleural Effusion * CXR (06/01): moderate left, small right pleural effusion; moderate venous congestions; confluent opacities in left mid to lower and right mid to lower lung; cardiomegaly * Chest CT: moderate b/l pleural effusion with b/l lower lobe segmental/ subsegmental atelectasis; cardiomegaly with small pericardial effusion; probably widespread hepatic metastasis. * Continue Duonebs Q4 * Pulmonology consulted, Dr. Cherry, help appreciated * IR consulted for therapeutic thoracentesis for pleural effusions; as per IR, US showed small pleural effusions not amenable to thoracentisis. 10.) Hyponatremia - Nephrology Consult: Dr. Lennon --> help appreciated - Urine sodium 43 - Urine Osmolality 563 - 1.5L of fluid restriction - Lasix 20mg Po daily - Sodium Chloride 2gm PO TID 11). DVT and GI prophylaxis * Heparin 5000sc Q8- HOLD * Dilaudid 0.5 mg IV Q4H PRN Severe Pain * Protonix 40 mg IV Q12H * PT/OT * Incentive spirometry * Palliative care: patient is DNR/DNI as of 05/29/17. Polst form completed. * Diet: Diabetic diet Son Dominick Mckoy ([phone]) Nializa Prabhakar ([phone]) as POA/Health Care Proxy Disposition: Patient scheduled for osteomy revision on 06/09/[address] Richard[address] NPO@AZ, hold heparin orders tomorrow. Patient accepted to [facility]. Case discussed with Dr. Jonel Monk PGY-1 <Arya Remy - Last Filed: 06/07/17 20:02> Objective - Vital Signs/Intake and Output Vital Signs (last 24 hours): Temp Pulse Resp BP Pulse Ox 98.4 F 91 H 18 151/80 H 98 06/07/17 16:21 06/07/17 16:21 06/07/17 16:21 06/07/17 16:21 06/07/17 16:21 Intake and Output: 06/07/17 06/08/17 18:59 06:59 Output Total 610 Balance -610 - Medications Medications: Current Medications Acetaminophen (Tylenol 650mg/20.3ml Solution Ud) 650 mg PO Q4H PRN PRN Reason: Pain, moderate (4-7) Albuterol/Ipratropium (Duoneb 3 Mg/0.5 Mg (3 Ml) Ud) 3 ml INH RQ4 [facility] Last Admin: 06/07/17 16:09 Dose: 3 ml Diltiazem HCl (Cardizem Cd) 120 mg PO DAILY [facility] Last Admin: 06/07/17 10:32 Dose: 120 mg Fluconazole (Diflucan) 100 mg PO DAILY [facility] Furosemide (Lasix) 20 mg PO DAILY [facility] Last Admin: 06/07/17 10:34 Dose: 20 mg Heparin Sodium (Porcine) (Heparin) 5,000 units SC Q8 [facility] Last Admin: 06/07/17 13:52 Dose: 5,000 units Vancomycin HCl (Vancocin 750mg/D5w 150 Ml) 150 mls @ 100 mls/hr IVPB Q12H [facility] Last Admin: 06/07/17 18:24 Dose: Not Given Insulin Aspart (Novolog) 0 unit SC ACHS [facility] PRN Reason: Protocol Last Admin: 06/07/17 16:56 Dose: Not Given Insulin Aspart (Novolog) 3 unit SC AC [facility] Last Admin: 06/07/17 16:57 Dose: Not Given Insulin Glargine (Lantus) 20 unit SC HS [facility] Labetalol HCl (Trandate) 100 mg PO BID [facility] Last Admin: 06/07/17 18:23 Dose: 100 mg Linezolid (Zyvox) 600 mg PO Q12H [facility] Pantoprazole Sodium (Protonix Ec Tab) 40 mg PO DAILY [facility] Last Admin: 06/07/17 10:32 Dose: 40 mg Potassium Chloride (K-Dur 20 Meq Er Tab) 20 meq PO ONCE ONE Stop: 06/08/17 18:29 Saccharomyces Boulardii (Florastor) 250 mg PO DAILY [facility] Last Admin: 06/07/17 10:32 Dose: 250 mg Sodium Chloride (Sodium Chloride Tab) 2 gm PO TID [facility] Last Admin: 06/07/17 18:23 Dose: Not Given - Labs Labs: 06/06/17 06:34 06/07/17 07:36 PT 16.6 SECONDS (9.7-12.2) H 06/05/17 07:23 INR 1.4 06/05/17 07:23 APTT 31 SECONDS (21-34) 05/25/17 07:51 Attending/Attestation - Attestation I have personally seen and examined this patient.: Yes I have fully participated in the care of the patient.: Yes I have reviewed all pertinent clinical information, including history, physical exam and plan: Yes Notes (Text): 06/07/17 19:41 Patient was seen and examined at 9:45 AM 06/07/17. Exam, assessment and plan were gone over with the resident. Also on ROS: Hungry My arms and legs are swollen I want to go home and I am tired of people sticking me and I want to be left alone Also on Exam: GI: Central surgical site with edel with NO dehiscence/cellulitis noted, Colostomy bag in Left mid quadrant with brown well formed stool Ext: 2 to 3 + pitting edema involving the bilateral LE from the feet to just below the knees, 2+ pitting edema of the bilateral arms Assessments: 1). Sigmoid Colon Mass/Liver Metastasis: Patient underwent laparotomy with diverting colostomy and liver biopsy on . She was found to have the colonic mass invading the bladder and therefore was not entirely resectable. KRAS mutation to be tested and then outpatient Chemotherapy as outpatient as per Heme/Oncology Dr. Bright. For revision of Colostomy by Surgery Dr. Richard on Monday06/09/17. 2). Hx Respiratory Acidosis 3). Sepsis: Meropenem 1 gm IV Q12H Vancomycin increased to 750 mg IV Q12H due to low trough and goal trough is 15. F/U repeat trough 06/09/17 5:30 AM) Urine Culture 05/30/17 shows NO growth Urine Culture 06/04/17 showed Yeast Blood Culture 05/28/17 and 05/29/17 was negative at 5 days Peritoneal Fluid 05/30/17 showed NO growth DARRYL Drain Cultures x 2 06/04/17 preliminary are negative ID Dr. Maravilla 4). Hx DM 2 Insulin was adjusted on evening 06/06/17 as Surgery was concerned about the blood glucose being in the high 200s. However due to this adjustment patient's had episode of hypoglycemia again on morning of 06/07/17. Keep regimen for now: Lantus 20 Units SC HS and Aspart 3 Units SC ACMeals due to the patient's inconsistent eating 5). Hx HTN Diltiazem CD 120 mg PO 1x/day Labetolol 100 mg PO 2x/day 6). Anemia Likely Secondary To Chronic Disease/Colon CA Surgery Team ordered 1 unit of PRBC on 06/06/17 in anticipation of blood loss during planned Colostomy revision 7). Pericardial Effusion/Cardiomegaly 8). Bilateral Renal Cysts 9). Leukocytosis Likely Secondary to Sepsis: see Assessment and Plan #3 10). Hypervolemic Hyponatremia Likely secondary to SIADH Lasix 20 mg PO 1x/day NaCl 2 gm PO 3x/day Nephrology Dr. Lennon 11). Low Albumin Likely secondary to recent surgery/poor intake Albumin 12.5 gm x 4 doses finished on 06/07/17 12). Bilateral Pleural Effusion As per CT Chest 06/02/[address] John attempted Thoracentesis but too small and not amenable to thoracentesis 13). Bilateral UE and LE Edema Bilateral UE Doppler 06/03/17: Superficial Thrombosis Right Basilic Vein and NO DVT Bilateral LE Doppler 06/03/17: NO DVT 14). Prophylaxis Duoneb Heparin Protonix Florastor 06/07/17: two phlebotomists attempted to draw blood for CBC but not successful. Attempted to get PICC line for access however patient declined and wanted to be left alone and agreed to have placed on 06/08/17. Revision of Colostomy planned for Monday06/08/17. Arya Remy D.O.
[2017-06-07] MEDS: (Novolog) Insulin Aspart, Recombinant 100 u/ml 10 ml vial SC SCH ×5 (08:36→21:45)
[2017-06-07 08:41] LABS: IRON 13 ug/dL (37-170)
[2017-06-07 08:50] LABS: TOTAL IRON BINDING CAPACITY 123 ug/dL (250-450)
[2017-06-07 08:51] LABS: % IRON SATURATION 10 (20-55)
[2017-06-07 09:32] LABS: ALB/GLOB RATIO 0.9 (1.0-2.1); ALBUMIN 2.2 g/dL (3.5-5.0); ALT/SGPT 15 U/L (9-52); AST/SGOT 21 U/L (14-36); BLOOD UREA NITROGEN 11 mg/dL (7-17); CALCIUM 7.8 mg/dl (8.6-10.4); GFR AFRICAN-AMERICAN > 60; GFR NON-AFRICAN AMERICAN > 60
[2017-06-07] MEDS ORDERED: Albumin Human 25% (12.5 gm/50 ml) IV ONE (10:00)
--- NOTE | 2017-06-07 10:18 | CP.PCM.PN ---
Subjective - Date & Time of Evaluation Date of Evaluation: 06/07/17 Time of Evaluation: 10:00 - Subjective Subjective: General Surgery note for Dr. Richard Patient seen and examined at bedside. No acute event overnight. No complaints. OR planned for monday. Objective - Vital Signs/Intake and Output Vital Signs (last 24 hours): Temp Pulse Resp BP Pulse Ox 98.1 F 87 20 161/79 H 97 06/07/17 00:25 06/07/17 00:25 06/07/17 00:25 06/07/17 00:25 06/07/17 00:25 Intake and Output: 06/07/17 06/07/17 06:59 18:59 Intake Total 650 Output Total 1085 Balance -435 - Medications Medications: Current Medications Acetaminophen (Tylenol 650mg/20.3ml Solution Ud) 650 mg PO Q4H PRN PRN Reason: Pain, moderate (4-7) Albuterol/Ipratropium (Duoneb 3 Mg/0.5 Mg (3 Ml) Ud) 3 ml INH RQ4 [facility] Last Admin: 06/07/17 07:46 Dose: 3 ml Diltiazem HCl (Cardizem Cd) 120 mg PO DAILY [facility] Last Admin: 06/06/17 09:11 Dose: 120 mg Furosemide (Lasix) 20 mg PO DAILY [facility] Last Admin: 06/06/17 17:25 Dose: 20 mg Heparin Sodium (Porcine) (Heparin) 5,000 units SC Q8 [facility] Last Admin: 06/07/17 06:05 Dose: 5,000 units Meropenem 1 gm/ Sodium (Chloride) 100 mls @ 50 mls/hr IVPB Q12H [facility] Last Admin: 06/06/17 22:11 Dose: 50 mls/hr Vancomycin HCl 750 mg/ Sodium (Chloride) 250 mls @ 166.6 mls/hr IVPB Q12H [facility] Insulin Aspart (Novolog) 0 unit SC ACHS [facility] PRN Reason: Protocol Last Admin: 06/07/17 08:36 Dose: Not Given Insulin Aspart (Novolog) 7 unit SC AC [facility] Last Admin: 06/07/17 08:40 Dose: 7 unit Insulin Glargine (Lantus) 32 unit SC HS [facility] Last Admin: 06/06/17 22:09 Dose: 32 u Labetalol HCl (Trandate) 100 mg PO BID [facility] Last Admin: 06/06/17 17:25 Dose: 100 mg Pantoprazole Sodium (Protonix Ec Tab) 40 mg PO DAILY [facility] Last Admin: 06/06/17 09:11 Dose: 40 mg Saccharomyces Boulardii (Florastor) 250 mg PO DAILY [facility] Last Admin: 06/06/17 09:10 Dose: 250 mg Sodium Chloride (Sodium Chloride Tab) 2 gm PO TID [facility] Last Admin: 06/06/17 17:25 Dose: 2 gm - Labs Labs: 06/06/17 06:34 06/07/17 07:36 PT 16.6 SECONDS (9.7-12.2) H 06/05/17 07:23 INR 1.4 06/05/17 07:23 APTT 31 SECONDS (21-34) 05/25/17 07:51 - Constitutional Appears: No Acute Distress, Chronically Ill - Head Exam Head Exam: ATRAUMATIC, NORMOCEPHALIC - Eye Exam Eye Exam: Normal appearance - ENT Exam ENT Exam: Mucous Membranes Moist - Respiratory Exam Respiratory Exam: NORMAL BREATHING PATTERN - Cardiovascular Exam Cardiovascular Exam: REGULAR RHYTHM - GI/Abdominal Exam GI & Abdominal Exam: Soft. absent: Distended, Guarding, Rigid, Tenderness Additional comments: healing midline incision stoma patent with output - Neurological Exam Neurological Exam: Alert, Awake, Oriented x3 - Psychiatric Exam Psychiatric exam: Normal Affect, Normal Mood - Skin Skin Exam: Dry, Intact, Normal Color, Warm Assessment and Plan - Assessment and Plan (Free Text) Plan: 86F s/p exploratory laparotomy w/diverting colostomy & liver biopsy POD#13 Replete electrolytes Nephro consulted, appreciate any further recs Ambulate/OOB/IS PT D/W Dr. Hilary Jimenez PGY1
[2017-06-07] MEDS: Pantoprazole 40 mg EC Tab PO SCH (10:32)
[2017-06-07] MEDS: Saccharomyces Boulardi 250 mg Cap PO SCH (10:32)
[2017-06-07] MEDS: diltiaZEM 120 mg/24 Hours CD Cap PO SCH (10:32)
[2017-06-07] MEDS ORDERED: Potassium Chloride 20 mEq ER Tab PO ONE ×2 (10:49→13:38)
[2017-06-07] MEDS ORDERED: Dextrose 50% VIAL Inj (50 ml) IV ONE (11:39)
[2017-06-07] MEDS: Meropenem 1 GM in Sodium Chloride 0.9% 100 ML IVPB SCH (13:39)
[2017-06-07] MEDS ORDERED: Dextrose 50% SYRINGE Inj (50 ml) IV STA (13:56)
--- NOTE | 2017-06-07 14:11 | PN ---
DATE: LOCATION: 8, bed A. SUBJECTIVE: This is an 86-year-old female seen early in rounds, without reported significant changes or active bleeding, the patient is still in DNR/DNI status. Somewhat tolerating oral intake well, with subsequent drop of hemoglobin and hematocrit yesterday for which blood transfusion was given, The entire chart is reviewed including, but not limited to most recent lab and radiology study results, current and the previous medication list, current and the previous medical events. LABORATORY DATA: Today's labs showed sodium low of 131, with low potassium of 3.5, with blood glucose level 146, with low calcium of 7.3, low iron studies, with low albumin 2.2, low total protein 4.5, with alkaline phosphatase 257 due to most likely the patient's poor oral intake recently. Most recent radiology study results seen including joint effusion . PHYSICAL EXAMINATION: GENERAL: An 86-year-old female, awake, alert. VITAL SIGNS: Afebrile, with pulse of 82, respiratory rate 20 to 22, blood pressure of 160/54. HEENT: Showed mildly pale dry oral mucous membrane, nonicteric sclerae. LUNGS: Few scattered crepitation, decreased air entry at bases. HEART: Positive S1 and S2. ABDOMEN: Soft. Bowel sounds are present, but hypoactive, covered with clean dressing, colostomy tube is in place with small amount of semi-solid, semi-liquid thick fecal material. EXTREMITIES: With mild lower extremity edematous changes. No clubbing or cyanosis. NEUROLOGIC: No new reported new neurological deficits, sensory or motor. IMPRESSION: 1. 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 2. Pericardial effusion. 3. Peptic ulcer disease. 4. Pleural effusion. 5. Anemia secondary to above. 6. Status post colostomy insertion, discussed the case again with the instructor adjunct surgical technician. 7. Known history of, but not limited to diabetes mellitus, hypertension, bilateral large renal cysts. SUGGESTIONS: 1. Continue current management. 2. Correct any underlying electrolyte imbalance. 3 The patient will need central hyperalimentation as well as physical therapy. 4. No further aggressive GI workup at this point. Sp Leblanc MD
[2017-06-07] MEDS ORDERED: Vancomycin 750mg/D5W 150 ml 150 ML IVPB SCH ×3 (18:00→20:00)
--- NOTE | 2017-06-07 18:29 | CP.PCM.PN ---
Subjective - Date & Time of Evaluation Date of Evaluation: 06/07/17 Time of Evaluation: 12:00 - Subjective Subjective: Patient tolerating diet; no nausea/vomiting; complying with fluid restriction; refusing meds at times; Objective - Vital Signs/Intake and Output Vital Signs (last 24 hours): Temp Pulse Resp BP Pulse Ox 98.4 F 91 H 18 151/80 H 98 06/07/17 16:21 06/07/17 16:21 06/07/17 16:21 06/07/17 16:21 06/07/17 16:21 Intake and Output: 06/07/17 06/07/17 06:59 18:59 Intake Total 650 Output Total 1085 610 Balance -435 -610 - Medications Medications: Current Medications Acetaminophen (Tylenol 650mg/20.3ml Solution Ud) 650 mg PO Q4H PRN PRN Reason: Pain, moderate (4-7) Albuterol/Ipratropium (Duoneb 3 Mg/0.5 Mg (3 Ml) Ud) 3 ml INH RQ4 [facility] Last Admin: 06/07/17 16:09 Dose: 3 ml Diltiazem HCl (Cardizem Cd) 120 mg PO DAILY [facility] Last Admin: 06/07/17 10:32 Dose: 120 mg Furosemide (Lasix) 20 mg PO DAILY [facility] Last Admin: 06/07/17 10:34 Dose: 20 mg Heparin Sodium (Porcine) (Heparin) 5,000 units SC Q8 [facility] Last Admin: 06/07/17 13:52 Dose: 5,000 units Meropenem 1 gm/ Sodium (Chloride) 100 mls @ 50 mls/hr IVPB Q12H [facility] Last Admin: 06/07/17 13:39 Dose: Not Given Vancomycin HCl (Vancocin 750mg/D5w 150 Ml) 150 mls @ 100 mls/hr IVPB Q12H [facility] Last Admin: 06/07/17 18:24 Dose: Not Given Vancomycin HCl (Vancocin 750mg/D5w 150 Ml) 150 mls @ 150 mls/hr IVPB Q24H [facility] Stop: 06/12/17 18:31 Fluconazole 100 mg/ (Miscellaneous) 50 mls @ 100 mls/hr IVPB DAILY [facility] Insulin Aspart (Novolog) 0 unit SC ACHS [facility] PRN Reason: Protocol Last Admin: 01/24/18 16:56 Dose: Not Given Insulin Aspart (Novolog) 3 unit SC AC [facility] Last Admin: 06/07/17 16:57 Dose: Not Given Insulin Glargine (Lantus) 20 unit SC HS [facility] Labetalol HCl (Trandate) 100 mg PO BID [facility] Last Admin: 06/07/17 18:23 Dose: 100 mg Pantoprazole Sodium (Protonix Ec Tab) 40 mg PO DAILY [facility] Last Admin: 06/07/17 10:32 Dose: 40 mg Saccharomyces Boulardii (Florastor) 250 mg PO DAILY [facility] Last Admin: 06/07/17 10:32 Dose: 250 mg Sodium Chloride (Sodium Chloride Tab) 2 gm PO TID [facility] Last Admin: 06/07/17 18:23 Dose: Not Given - Labs Labs: 06/06/17 06:34 06/07/17 07:36 PT 16.6 SECONDS (9.7-12.2) H 06/05/17 07:23 INR 1.4 06/05/17 07:23 APTT 31 SECONDS (21-34) 05/25/17 07:51 - Constitutional Appears: Non-toxic, No Acute Distress - Eye Exam Eye Exam: Normal appearance. absent: Scleral icterus - ENT Exam ENT Exam: Mucous Membranes Moist - Respiratory Exam Respiratory Exam: Clear to Ausculation Bilateral. absent: Respiratory Distress - Cardiovascular Exam Cardiovascular Exam: RRR, +S1, +S2 - GI/Abdominal Exam GI & Abdominal Exam: Distended, Tenderness - Extremities Exam Additional comments: markedly edematous lower legs; - Neurological Exam Neurological Exam: Alert, Awake - Psychiatric Exam Psychiatric exam: absent: Agitated - Skin Skin Exam: Warm. absent: Cyanosis Assessment and Plan (1) Hyponatremia Assessment & Plan: Improved with salt tabs and lasix 20 mg daily; continue same; Status: Acute (2) Hypokalemia Assessment & Plan: Relatively mild, supplementing PO KCl; Status: Acute (3) Hypertension Assessment & Plan: BP controlled on cardizem and labetalol, continue same; may benefit from continuing diuretic as she has significant lower ext edema; Status: Acute (4) Proteinuria Assessment & Plan: Relatively mild on random protein/creat ratio (500 mg/g); will not pursue additional workup at this time; Status: Acute (5) Hypocalcemia Assessment & Plan: Low vit D 25-OH level; starting ergocalciferol 50,000 U weekly and awaiting PTH level; Status: Acute
--- NOTE | 2017-06-07 18:42 | CP.PCM.PN ---
Subjective - Date & Time of Evaluation Date of Evaluation: 06/07/17 Time of Evaluation: 06:30 - Subjective Subjective: dictated Objective - Vital Signs/Intake and Output Vital Signs (last 24 hours): Temp Pulse Resp BP Pulse Ox 98.4 F 91 H 18 151/80 H 98 06/07/17 16:21 06/07/17 16:21 06/07/17 16:21 06/07/17 16:21 06/07/17 16:21 Intake and Output: 06/07/17 06/07/17 06:59 18:59 Intake Total 650 Output Total 1085 610 Balance -435 -610 - Medications Medications: Current Medications Acetaminophen (Tylenol 650mg/20.3ml Solution Ud) 650 mg PO Q4H PRN PRN Reason: Pain, moderate (4-7) Albuterol/Ipratropium (Duoneb 3 Mg/0.5 Mg (3 Ml) Ud) 3 ml INH RQ4 [facility] Last Admin: 06/07/17 16:09 Dose: 3 ml Diltiazem HCl (Cardizem Cd) 120 mg PO DAILY [facility] Last Admin: 06/07/17 10:32 Dose: 120 mg Fluconazole (Diflucan) 100 mg PO DAILY [facility] Furosemide (Lasix) 20 mg PO DAILY [facility] Last Admin: 06/07/17 10:34 Dose: 20 mg Heparin Sodium (Porcine) (Heparin) 5,000 units SC Q8 [facility] Last Admin: 06/07/17 13:52 Dose: 5,000 units Vancomycin HCl (Vancocin 750mg/D5w 150 Ml) 150 mls @ 100 mls/hr IVPB Q12H [facility] Last Admin: 06/07/17 18:24 Dose: Not Given Vancomycin HCl (Vancocin 750mg/D5w 150 Ml) 150 mls @ 150 mls/hr IVPB Q24H [facility] Stop: 06/12/17 20:01 Insulin Aspart (Novolog) 0 unit SC ACHS [facility] PRN Reason: Protocol Last Admin: 06/07/17 16:56 Dose: Not Given Insulin Aspart (Novolog) 3 unit SC AC [facility] Last Admin: 06/07/17 16:57 Dose: Not Given Insulin Glargine (Lantus) 20 unit SC HS [facility] Labetalol HCl (Trandate) 100 mg PO BID [facility] Last Admin: 06/07/17 18:23 Dose: 100 mg Pantoprazole Sodium (Protonix Ec Tab) 40 mg PO DAILY [facility] Last Admin: 06/07/17 10:32 Dose: 40 mg Potassium Chloride (K-Dur 20 Meq Er Tab) 20 meq PO ONCE ONE Stop: 06/08/17 18:29 Saccharomyces Boulardii (Florastor) 250 mg PO DAILY [facility] Last Admin: 06/07/17 10:32 Dose: 250 mg Sodium Chloride (Sodium Chloride Tab) 2 gm PO TID [facility] Last Admin: 06/07/17 18:23 Dose: Not Given - Labs Labs: 06/06/17 06:34 06/07/17 07:36 PT 16.6 SECONDS (9.7-12.2) H 06/05/17 07:23 INR 1.4 06/05/17 07:23 APTT 31 SECONDS (21-34) 05/25/17 07:51
--- NOTE | 2017-06-07 22:06 | CP.PCM.PN ---
Subjective - Date & Time of Evaluation Date of Evaluation: 06/07/17 Time of Evaluation: 18:15 - Subjective Subjective: Feels tired Objective - Vital Signs/Intake and Output Vital Signs (last 24 hours): Temp Pulse Resp BP Pulse Ox 98.4 F 91 H 18 151/80 H 98 06/07/17 16:21 06/07/17 16:21 06/07/17 16:21 06/07/17 16:21 06/07/17 16:21 Intake and Output: 06/07/17 06/08/17 18:59 06:59 Output Total 610 Balance -610 - Medications Medications: Current Medications Acetaminophen (Tylenol 650mg/20.3ml Solution Ud) 650 mg PO Q4H PRN PRN Reason: Pain, moderate (4-7) Albuterol/Ipratropium (Duoneb 3 Mg/0.5 Mg (3 Ml) Ud) 3 ml INH RQ4 [facility] Last Admin: 06/07/17 20:26 Dose: 3 ml Diltiazem HCl (Cardizem Cd) 120 mg PO DAILY [facility] Last Admin: 06/07/17 10:32 Dose: 120 mg Fluconazole (Diflucan) 100 mg PO DAILY [facility] Furosemide (Lasix) 20 mg PO DAILY [facility] Last Admin: 06/07/17 10:34 Dose: 20 mg Heparin Sodium (Porcine) (Heparin) 5,000 units SC Q8 [facility] Last Admin: 06/07/17 21:58 Dose: 5,000 units Insulin Aspart (Novolog) 0 unit SC ACHS [facility] PRN Reason: Protocol Last Admin: 06/07/17 21:45 Dose: Not Given Insulin Aspart (Novolog) 3 unit SC AC [facility] Last Admin: 06/07/17 16:57 Dose: Not Given Insulin Glargine (Lantus) 20 unit SC HS [facility] Labetalol HCl (Trandate) 100 mg PO BID [facility] Last Admin: 06/07/17 18:23 Dose: 100 mg Linezolid (Zyvox) 600 mg PO Q12H [facility] Pantoprazole Sodium (Protonix Ec Tab) 40 mg PO DAILY [facility] Last Admin: 06/07/17 10:32 Dose: 40 mg Potassium Chloride (K-Dur 20 Meq Er Tab) 20 meq PO ONCE ONE Stop: 06/08/17 18:29 Saccharomyces Boulardii (Florastor) 250 mg PO DAILY [facility] Last Admin: 06/07/17 10:32 Dose: 250 mg Sodium Chloride (Sodium Chloride Tab) 2 gm PO TID [facility] Last Admin: 06/07/17 18:23 Dose: Not Given - Labs Labs: 06/06/17 06:34 06/07/17 07:36 PT 16.6 SECONDS (9.7-12.2) H 06/05/17 07:23 INR 1.4 06/05/17 07:23 APTT 31 SECONDS (21-34) 05/25/17 07:51 - Head Exam Head Exam: ATRAUMATIC - Eye Exam Eye Exam: Normal appearance - ENT Exam ENT Exam: Mucous Membranes Dry - Respiratory Exam Respiratory Exam: NORMAL BREATHING PATTERN - Cardiovascular Exam Cardiovascular Exam: +S1, +S2 - GI/Abdominal Exam GI & Abdominal Exam: Normal Bowel Sounds - Extremities Exam Extremities Exam: Pedal Edema Assessment and Plan (1) Colon adenocarcinoma Assessment & Plan: liver metastasis KRAS added outpatient treatment Status: Acute (2) Anemia Assessment & Plan: chronic disease Status: Acute (3) Coagulopathy Status: Acute
[2017-06-07] MEDS: (Lantus) Insulin Glargine, Recombinant SC SCH (22:15)
[2017-06-08] MEDS: Albuterol-Ipratrop 3 mg / 0.5 (3 ml) UD INH SCH ×6 (00:40→19:02)
--- NOTE | 2017-06-08 02:23 | PN ---
DATE: SUBJECTIVE: She was seen today. The nurse told me that there was no IV access left, hence I had to reconsider giving oral antibiotics . She states she wanted to sleep and she was very tired. PHYSICAL EXAMINATION: VITAL SIGNS: Her T-max was 98.4, pulse 91, blood pressure 151/80, respirations are 18. HEENT: Head is atraumatic, normocephalic. NECK: Supple. LUNGS: Clear, decreased breath sounds on both bases. HEART: S1, S2 is regular. ABDOMEN: Had DARRYL drain and dressings and she also has a Bailey catheter. EXTREMITIES: Remain with edema. LABORATORY DATA: Her labs had come back as white count was 11.1, hemoglobin 8.4, hematocrit 25.2, platelet count is 361, neutrophils still are 84.4, are 90, but WBC count has decreased. 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 Microbiology, urine culture showed yeast, so I have put her on Diflucan. Wound culture was negative. There was another wound culture , hence I have left her on Zyvox and Diflucan p.o. at this time. There is no intravenous access and white count is decreasing. So I am hoping we get her off IV antibiotics. She is status post laparotomy and has urinary tract infection and there is a wound culture, which is from one of the drain sites, is pending. We will follow. Liborio Maravilla MD
[2017-06-08] MEDS: Ergocalciferol 50,000 Intl Units Cap PO SCH ×2 (06:00→06:27)
--- NOTE | 2017-06-08 06:59 | CP.PCM.PN ---
Addendum entered and electronically signed by Megha Monk 06/08/17 16:53 : A rapid response was called at 6:59am per nurse for change in mental status. When I arrived patient was oriented x3 with a flat affect. IV access was obtained with POA. POA was also informed of patient's affect change. 1). Sigmoid colon mass/Liver lesion likely mets/Weight loss and abdominal pain * CT-Abd/Pelvis on admission showed 8.6 cm sigmoid mass with extensive hepatic metastasis. Bilateral renal cysts with large right upper pole renal cyst. Small bilateral pleural effusion and small pericardial effusion. Small hiatal hernia. Possible small diverticulum of the herniated stomach * Repeat Abd/Pel CT (05/30): no ureteral injury; bulk tumor in pelvis and hepatic mets disease; increasing pleural effusion in consolidative changes at the lung base; stable pericardial effusion; severe post-op anasarca. * CEA elevated @ 11.6. (Normal = 0-3.0) * Colonscopy (05/22/17): Non-bleeding external and internal hemorrhoids. 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 At the level of the distal sigmoid colon, contrast slowly traversed through a very thin and irregular channel to the level of the mid sigmoid at the site of the known sigmoid carcinoma. Contrast did not flow freely past this level. Exam was subsequently terminated. These findings were concerning for a near complete obstruction of the bowel lumen from the adjacent obstructing tumor. * Venous dopplers UE&LE b/l ordered due to edema and cancer: f/u results * Calorie count and monitoring Consults * GI consult Dr Foster ,appreciated * recommends peripheral hyperalimentation * Started PPN on 06/01/17 with electrolytes - PPN stopped 06/02 due to elevated glucose - Dietary Consult --> help appreciated * Dr Bright oncology consult - Recs appreciated * suggests consulting IR for FNA biopsy of liver lesions to obtain diagnosis * Surgery consult Dr Richard-appreciated * 05/25/17: Patient underwent laparotomy with diverting colostomy and liver biopsy. 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 Sepsis * leukocytosis, bandemia * procalcitonin trending down: 4.15 --> 1.82--> 0.78 * Blood cx (05/28): no growth; urine cx: no growth * Peritoneal fluid stain: negative * Repeat blood cultures (05/29/17): negative * UA: 1+ protein, 1+ blood, 1+ LE, WBC29, RBC32, Occ bacteria * ID consulted: Dr. Maravilla --> help appreciated * Meropenem 1gm IV Q12 (started 05/30/17) * Vanco 750mg IV Q24 (started 06/03/17 for 5days) * Discontinued Flagyl 500mg IV Q8h (started 05/30/17) * CXR (06/01): moderate left, small right pleural effusion; moderate venous congestions; confluent opacities in left mid to lower and right mid to lower lung; cardiomegaly * DARRYL drain cx: VRE + * Spoke with Dr. Maravilla who will start patient on Tigecycline 3). DM 2 * Aspart ISS Q6H Low Dose * Accuchecks -moderate * Lantus 20 units HS (increased from 10 units on 06/03) * Novolog 3 units SCqAC * A1c: 8.4 4).Hypertension * Labetolol 100mg Q12H, Enalapril 15 mg Daily, and Cardizem [id number] Daily 5). Acute Anemia - Type and Screen - 2 units of PRBC to be given 06/08/17 - Tylenol 650mg to be given 30 minutes before each blood transfusion - Benadryl 25mg to be given 30 minutes before each blood transfusion - Lasix 10mg to be given 30 minutes before each blood transfusion * F/U: Iron Sat, Iron/TIBC, Ferritin, and Reticulocyte Count * S/P Transfusion upon admission * Continue to monitor 6). Pericardial effusion/cardiomegaly * Cardiology Consulted (Dr. Portillo) - help appreciated * as per Dr. Portillo, continue medical therapy; effusion is small; LV function is normal * ECHO (05/20/17): Diastolic Dysfunction Grade I-abnormal relaxation pattern, Trace TR and MR 7). Bilateral Renal Cysts * U/S Renal 05/26/17: Right Upper Pole renal cyst measures approximately 10.4x8.3x9.2 cm. Left upper pole renal cyst measures 2.2x1.4x1.6 cm * Will need follow up U/S in 6 months 8). Respiratory Acidosis * Patient was extubated on 05/26/17 and placed on BiPap and Bicarb Drip * Patient no longer on BiPap or bicarb drip 9). Pleural Effusion * CXR (06/01): moderate left, small right pleural effusion; moderate venous congestions; confluent opacities in left mid to lower and right mid to lower lung; cardiomegaly * Chest CT: moderate b/l pleural effusion with b/l lower lobe segmental/ subsegmental atelectasis; cardiomegaly with small pericardial effusion; probably widespread hepatic metastasis. * Continue Duonebs Q4 * Pulmonology consulted, Dr. Cherry, help appreciated * IR consulted for therapeutic thoracentesis for pleural effusions; as per IR, US showed small pleural effusions not amenable to thoracentisis. 10.) Hyponatremia - Nephrology Consult: Dr. Lennon --> help appreciated - Urine sodium 43 - Urine Osmolality 563 - 1.5L of fluid restriction - Lasix 20mg Po daily - Sodium Chloride 2gm PO TID 11.) Hypocalcemia - Calcium gluconate 2g @125ml/hr 12.) IV Access - Consent was done with POA - PICC line placed today 06/08/17 13.). DVT and GI prophylaxis * Heparin 5000sc Q8- HOLD * Dilaudid 0.5 mg IV Q4H PRN Severe Pain * Protonix 40 mg IV Q12H * PT/OT * Incentive spirometry * Palliative care: patient is DNR/DNI as of 05/29/17. Polst form completed. * Diet: Diabetic diet Son Dominick Mckoy ([phone]) Niall Prabhakar ([phone]) as POA/Health Care Proxy Disposition: Patient scheduled for osteomy revision on 06/09/[address] Richard. Patient placed NPO@[place], hold heparin orders tomorrow. Patient accepted to [facility]. Case discussed with Dr. Jonel Monk PGY-1 Addendum entered and electronically signed by Megha Monk 06/08/17 16:38 : PICC Line placed 06/08/17 for IV access Original Note: <Megha Monk - Last Filed: 06/08/17 16:33> Subjective - Date & Time of Evaluation Date of Evaluation: 06/08/17 Time of Evaluation: 07:00 - Subjective Subjective: Medicine Progress Note: Patient was seen and examined in the AM. Patient was oriented x3 at bedside. Patient was a bit more flat affect this morning. Patient stated she continued to be swollen. Objective - Vital Signs/Intake and Output Vital Signs (last 24 hours): Temp Pulse Resp BP Pulse Ox 98.4 F 103 H 20 131/82 97 06/07/17 23:30 06/07/17 23:30 06/07/17 23:30 06/07/17 23:30 06/07/17 23:30 Intake and Output: 06/07/17 06/08/17 18:59 06:59 Output Total 610 980 Balance -610 -980 - Medications Medications: Current Medications Acetaminophen (Tylenol 650mg/20.3ml Solution Ud) 650 mg PO Q4H PRN PRN Reason: Pain, moderate (4-7) Albuterol/Ipratropium (Duoneb 3 Mg/0.5 Mg (3 Ml) Ud) 3 ml INH RQ4 YANIQUE Last Admin: 06/08/17 03:39 Dose: Not Given Diltiazem HCl (Cardizem Cd) 120 mg PO DAILY [facility] Last Admin: 06/07/17 10:32 Dose: 120 mg Ergocalciferol (Drisdol 50,000 Intl Units Cap) 1 cap PO Q7D [facility] Last Admin: 06/08/17 06:27 Dose: 1 cap Fluconazole (Diflucan) 100 mg PO DAILY [facility] Furosemide (Lasix) 20 mg PO DAILY [facility] Last Admin: 06/07/17 10:34 Dose: 20 mg Heparin Sodium (Porcine) (Heparin) 5,000 units SC Q8 [facility] Last Admin: 06/08/17 05:48 Dose: 5,000 units Insulin Aspart (Novolog) 0 unit SC ACHS [facility] PRN Reason: Protocol Last Admin: 06/07/17 21:45 Dose: Not Given Insulin Aspart (Novolog) 3 unit SC AC [facility] Last Admin: 06/07/17 16:57 Dose: Not Given Insulin Glargine (Lantus) 20 unit SC HS [facility] Last Admin: 06/07/17 22:15 Dose: Not Given Labetalol HCl (Trandate) 100 mg PO BID [facility] Last Admin: 06/07/17 18:23 Dose: 100 mg Linezolid (Zyvox) 600 mg PO Q12H [facility] Pantoprazole Sodium (Protonix Ec Tab) 40 mg PO DAILY [facility] Last Admin: 06/07/17 10:32 Dose: 40 mg Potassium Chloride (K-Dur 20 Meq Er Tab) 20 meq PO ONCE ONE Stop: 06/08/17 18:29 Saccharomyces Boulardii (Florastor) 250 mg PO DAILY [facility] Last Admin: 06/07/17 10:32 Dose: 250 mg Sodium Chloride (Sodium Chloride Tab) 2 gm PO TID [facility] Last Admin: 06/07/17 18:23 Dose: Not Given - Labs Labs: 06/06/17 06:34 06/07/17 07:36 PT 16.6 SECONDS (9.7-12.2) H 06/05/17 07:23 INR 1.4 06/05/17 07:23 APTT 31 SECONDS (21-34) 05/25/17 07:51 - Constitutional Appears: No Acute Distress, Chronically Ill - Head Exam Head Exam: ATRAUMATIC, NORMAL INSPECTION - Eye Exam Eye Exam: EOMI, Normal appearance - ENT Exam ENT Exam: Mucous Membranes Moist - Respiratory Exam Respiratory Exam: Clear to Ausculation Bilateral, NORMAL BREATHING PATTERN - Cardiovascular Exam Cardiovascular Exam: REGULAR RHYTHM, RRR, +S1, +S2 - GI/Abdominal Exam GI & Abdominal Exam: Soft, Tenderness, Normal Bowel Sounds Additional comments: colostomy bag on the left with 2 drains - Extremities Exam Extremities Exam: Joint Swelling, Normal Inspection, Pedal Edema - Neurological Exam Neurological Exam: Alert, Awake, Oriented x3 - Psychiatric Exam Psychiatric exam: Flat Affect - Skin Skin Exam: Dry, Intact, Normal Color, Warm Assessment and Plan - Assessment and Plan (Free Text) Assessment: 1). Sigmoid colon mass/Liver lesion likely mets/Weight loss and abdominal pain * CT-Abd/Pelvis on admission showed 8.6 cm sigmoid mass with extensive hepatic metastasis. Bilateral renal cysts with large right upper pole renal cyst. Small bilateral pleural effusion and small pericardial effusion. Small hiatal hernia. Possible small diverticulum of the herniated stomach * Repeat Abd/Pel CT (05/30): no ureteral injury; bulk tumor in pelvis and hepatic mets disease; increasing pleural effusion in consolidative changes at the lung base; stable pericardial effusion; severe post-op anasarca. * CEA elevated @ 11.6. (Normal = 0-3.0) * Colonscopy (05/22/17): Non-bleeding external and internal hemorrhoids. 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 At the level of the distal sigmoid colon, contrast slowly traversed through a very thin and irregular channel to the level of the mid sigmoid at the site of the known sigmoid carcinoma. Contrast did not flow freely past this level. Exam was subsequently terminated. These findings were concerning for a near complete obstruction of the bowel lumen from the adjacent obstructing tumor. * Venous dopplers UE&LE b/l ordered due to edema and cancer: f/u results * Calorie count and monitoring Consults * GI consult Dr Foster ,appreciated * recommends peripheral hyperalimentation * Started PPN on 06/01/17 with electrolytes - PPN stopped 06/02 due to elevated glucose - Dietary Consult --> help appreciated * Dr Bright oncology consult - Recs appreciated * suggests consulting IR for FNA biopsy of liver lesions to obtain diagnosis * Surgery consult Dr Richard-appreciated * 05/25/17: Patient underwent laparotomy with diverting colostomy and liver biopsy. 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 Sepsis * leukocytosis, bandemia * procalcitonin trending down: 4.15 --> 1.82--> 0.78 * Blood cx (05/28): no growth; urine cx: no growth * Peritoneal fluid stain: negative * Repeat blood cultures (05/29/17): negative * UA: 1+ protein, 1+ blood, 1+ LE, WBC29, RBC32, Occ bacteria * ID consulted, help appreciated * Meropenem 1gm IV Q12 (started 05/30/17) * Vanco 750mg IV Q24 (started 06/03/17 for 5days) * Discontinued Flagyl 500mg IV Q8h (started 05/30/17) * CXR (06/01): moderate left, small right pleural effusion; moderate venous congestions; confluent opacities in left mid to lower and right mid to lower lung; cardiomegaly * DARRYL drain cx: f/u results 3). DM 2 * Aspart ISS Q6H Low Dose * Accuchecks -moderate * Lantus 20 units HS (increased from 10 units on 06/03) * Novolog 3 units SCqAC * A1c: 8.4 4).Hypertension * Labetolol 100mg Q12H, Enalapril 15 mg Daily, and Cardizem [id number] Daily 5). Anemia * H/H stable * F/U: Iron Sat, Iron/TIBC, Ferritin, and Reticulocyte Count * S/P Transfusion upon admission * Continue to monitor 6). Pericardial effusion/cardiomegaly * Cardiology Consulted (Dr. Portillo) - help appreciated * as per Dr. Portillo, continue medical therapy; effusion is small; LV function is normal * ECHO (05/20/17): Diastolic Dysfunction Grade I-abnormal relaxation pattern, Trace TR and MR 7). Bilateral Renal Cysts * U/S Renal 05/26/17: Right Upper Pole renal cyst measures approximately 10.4x8.3x9.2 cm. Left upper pole renal cyst measures 2.2x1.4x1.6 cm * Will need follow up U/S in 6 months 8). Respiratory Acidosis * Patient was extubated on 05/26/17 and placed on BiPap and Bicarb Drip * Patient no longer on BiPap or bicarb drip 9). Pleural Effusion * CXR (06/01): moderate left, small right pleural effusion; moderate venous congestions; confluent opacities in left mid to lower and right mid to lower lung; cardiomegaly * Chest CT: moderate b/l pleural effusion with b/l lower lobe segmental/ subsegmental atelectasis; cardiomegaly with small pericardial effusion; probably widespread hepatic metastasis. * Continue Duonebs Q4 * Pulmonology consulted, Dr. Cherry, help appreciated * IR consulted for therapeutic thoracentesis for pleural effusions; as per IR, US showed small pleural effusions not amenable to thoracentisis. 10.) Hyponatremia - Nephrology Consult: Dr. Lennon --> help appreciated - Urine sodium 43 - Urine Osmolality 563 - 1.5L of fluid restriction - Lasix 20mg Po daily - Sodium Chloride 2gm PO TID 11.) Acute Anemia - Type and Screen - 2 units of PRBC to be given 06/08/17 - Tylenol 650mg to be given 30 minutes before each blood transfusion - Benadryl 25mg to be given 30 minutes before each blood transfusion - Lasix 10mg to be given 30 minutes before each blood transfusion 12.) Hypocalcemia - Calcium gluconate 2g @125ml/hr 13). DVT and GI prophylaxis * Heparin 5000sc Q8- HOLD * Dilaudid 0.5 mg IV Q4H PRN Severe Pain * Protonix 40 mg IV Q12H * PT/OT * Incentive spirometry * Palliative care: patient is DNR/DNI as of 05/29/17. Polst form completed. * Diet: Diabetic diet Son Dominick Mckoy ([phone]) Nializa Boykin Prabhakar ([phone]) as POA/Health Care Proxy Disposition: Patient scheduled for osteomy revision on 06/09/[address] Richard. Patient placed NPO@[place], hold heparin orders tomorrow. Patient accepted to [facility]. Case discussed with Dr. Jonel Monk PGY-1 <Arya Remy - Last Filed: 06/08/17 18:58> Objective - Vital Signs/Intake and Output Vital Signs (last 24 hours): Temp Pulse Resp BP Pulse Ox 97.7 F 96 H 18 150/90 98 06/08/17 15:43 06/08/17 15:43 06/08/17 15:43 06/08/17 18:35 06/08/17 15:43 Intake and Output: 06/08/17 06/08/17 06:59 18:59 Output Total 980 0 Balance -980 0 - Medications Medications: Current Medications Acetaminophen (Tylenol 650mg/20.3ml Solution Ud) 650 mg PO Q4H PRN PRN Reason: Pain, moderate (4-7) Acetaminophen (Tylenol 325mg Tab) 650 mg PO ONCE ONE Stop: 06/08/17 23:01 Albuterol/Ipratropium (Duoneb 3 Mg/0.5 Mg (3 Ml) Ud) 3 ml INH RQ4 [facility] Last Admin: 06/08/17 16:39 Dose: 3 ml Calcium Carbonate (Oscal) 500 mg PO BID [facility] Last Admin: 06/08/17 18:16 Dose: Not Given Diltiazem HCl (Cardizem Cd) 120 mg PO DAILY [facility] Last Admin: 06/08/17 10:57 Dose: 120 mg Diphenhydramine HCl (Benadryl) 25 mg PO ONCE ONE Stop: 06/08/17 23:01 Ergocalciferol (Drisdol 50,000 Intl Units Cap) 1 cap PO Q7D [facility] Last Admin: 06/08/17 06:00 Dose: Not Given Fluconazole (Diflucan) 100 mg PO DAILY [facility] Last Admin: 06/08/17 10:58 Dose: 100 mg Furosemide (Lasix) 10 mg PO ONCE ONE Stop: 06/08/17 23:01 Furosemide (Lasix) 20 mg PO DAILY [facility] Insulin Aspart (Novolog) 0 unit SC ACHS [facility] PRN Reason: Protocol Last Admin: 06/08/17 18:05 Dose: Not Given Insulin Aspart (Novolog) 3 unit SC AC [facility] Last Admin: 06/08/17 18:07 Dose: 3 unit Insulin Glargine (Lantus) 20 unit SC HS [facility] Last Admin: 06/07/17 22:15 Dose: Not Given Labetalol HCl (Trandate) 100 mg PO BID [facility] Last Admin: 06/08/17 18:14 Dose: Not Given Linezolid (Zyvox) 600 mg PO Q12H [facility] Last Admin: 06/08/17 10:57 Dose: 600 mg Pantoprazole Sodium (Protonix Ec Tab) 40 mg PO DAILY [facility] Last Admin: 06/08/17 10:57 Dose: 40 mg Saccharomyces Boulardii (Florastor) 250 mg PO DAILY [facility] Last Admin: 06/08/17 10:57 Dose: 250 mg Sodium Chloride (Sodium Chloride Tab) 2 gm PO TID [facility] Last Admin: 06/08/17 18:15 Dose: Not Given - Labs Labs: 06/08/17 07:06 06/08/17 17:15 PT 16.6 SECONDS (9.7-12.2) H 06/05/17 07:23 INR 1.4 06/05/17 07:23 APTT 31 SECONDS (21-34) 05/25/17 07:51 Attending/Attestation - Attestation I have personally seen and examined this patient.: Yes I have fully participated in the care of the patient.: Yes I have reviewed all pertinent clinical information, including history, physical exam and plan: Yes Notes (Text): 06/08/17 18:39 Patient was seen and examined with the resident 06/08/17. Exam, assessment and plan were gone over with the resident. Also on Exam: GI: Central surgical site with edel with NO dehiscence/cellulitis noted, Colostomy bag in Left mid quadrant with light green watery stool Ext: 2 to 3 + pitting edema involving the bilateral LE from the feet to just below the knees, 2+ pitting edema of the bilateral arms Assessments: 1). Sigmoid Colon Mass/Liver Metastasis: Patient underwent laparotomy with diverting colostomy and liver biopsy on . She was found to have the colonic mass invading the bladder and therefore was not entirely resectable. KRAS mutation testing ordered by Heme/Onc Dr. Angella Bright and then outpatient Chemotherapy.. Revision of Colostomy by Surgery Dr. Richard is pending patient lab work stability 2). Hx Respiratory Acidosis 3). Sepsis Urine Culture 05/30/17 shows NO growth Urine Culture 06/04/17 showed Yeast and patient started on Fluconazole 100 mg PO 1x/day 06/08/17 Blood Culture 05/28/17 and 05/29/17 was negative at 5 days Peritoneal Fluid 05/30/17 showed NO growth DARRYL Drain Culture x 1 06/04/17 showed VRE: Tigecycline 100 mg IV x 1 dose 06/08/17 then 50 mg IV Q12H starting 06/09/[address] Maravilla 4). Hx DM 2 Insulin was adjusted on evening 06/06/17 as Surgery was concerned about the blood glucose being in the high 200s. However due to this adjustment patient's had episode of hypoglycemia again on morning of 06/07/17. Keep regimen for now: Lantus 20 Units SC HS and Aspart 3 Units SC ACMeals due to the patient's inconsistent eating 5). Hx HTN Diltiazem CD 120 mg PO 1x/day Labetolol 100 mg PO 2x/day 6). Anemia Likely Secondary To Chronic Disease/Colon CA 2 Units of PRBC ordered for 06/08/17 after PICC line placement 7). Pericardial Effusion/Cardiomegaly 8). Bilateral Renal Cysts 9). Leukocytosis Likely Secondary to Sepsis: see Assessment and Plan #3 10). Hypervolemic Hyponatremia Likely secondary to SIADH Lasix 20 mg PO 1x/day NaCl 2 gm PO 3x/day Tolvaptan 15 mg PO x 1 dose 06/08/[address] Lennon 11). Low Albumin Likely secondary to recent surgery/poor intake Albumin 12.5 gm x 4 doses finished on 06/07/17 12). Bilateral Pleural Effusion As per CT Chest 06/02/[address] John attempted Thoracentesis but too small and not amenable to thoracentesis 13). Bilateral UE and LE Edema Bilateral UE Doppler 06/03/17: Superficial Thrombosis Right Basilic Vein and NO DVT Bilateral LE Doppler 06/03/17: NO DVT 14). Hypocalcemia Calcium Gluconate 2 gm IV ordered 06/08/17 to be given after PICC line placement 15). Low Vitamin D Vitamin D 50,000 Units once a week for 8 weeks starting 06/08/17 16). Prophylaxis Duoneb Heparin placed on HOLD in light of low HgB/Hct on 06/08/17 Protonix Florastor 06/07/17: two phlebotomists attempted to draw blood for CBC but not successful. Attempted to get PICC line for access however patient declined and wanted to be left alone and agreed to have placed on 06/08/17. 06/08/17: PICC Line placed. Surgery Dr. Richard holding off on revision of Colostomy for now until patient more medical stable. Arya Remy D.O.
[2017-06-08 07:34] LABS: BLOOD UREA NITROGEN 11 mg/dL (7-17); GFR AFRICAN-AMERICAN > 60; GFR NON-AFRICAN AMERICAN > 60
[2017-06-08 07:35] LABS: BASO % 0.4 % (0.0-2.0); EOS % 0.4 % (0.0-4.0); LYMPH # 0.9 K/uL (1.0-4.3); LYMPH % 12.4 % (20.0-40.0); MEAN CELL VOLUME 83.3 fL (81.0-99.0); MEAN CORPUSCULAR HEMOGLOBIN 29.2 pg (27.0-31.0); MEAN PLATELET VOLUME 9.1 fL (7.2-11.7); MONO # 0.4 K/uL (0.0-0.8); MONO % 6.4 % (0.0-10.0); NEUT # 5.6 K/uL (1.8-7.0); NEUT % 80.4 % (50.0-75.0); RBC 2.18 Mil/uL (3.80-5.20); RED CELL DISTRIBUTION WIDTH 17.7 % (11.5-14.5); WHITE BLOOD COUNT 6.9 K/uL (4.8-10.8)
[2017-06-08 07:56] LABS: HEMOGLOBIN 6.4 g/dL (11.0-16.0)
[2017-06-08] MEDS: (Novolog) Insulin Aspart, Recombinant 100 u/ml 10 ml vial SC SCH ×7 (08:00→22:06)
--- NOTE | 2017-06-08 08:22 | RAD ---
HISTORY: sob COMPARISON: 06/01/2017 FINDINGS: LUNGS: Bibasilar hazy opacities -. Probable layering bilateral pleural fluid -concomitant left basal compressive atelectasis. Left basal infiltrate not excluded PLEURA: As above bilateral pleural effusions left greater than right, no pneumothorax apparent. CARDIOVASCULAR: Cardiomegaly similar Central pulmonary venous congestion OSSEOUS STRUCTURES: Thoracic spondylosis. VISUALIZED UPPER ABDOMEN: Normal. OTHER FINDINGS: None. IMPRESSION: Persistent bilateral pleural effusions greater than right since prior exam pleural effusion has decreased. Per inferred left basal compressive atelectasis. Concomitant left basal infiltrate-not excluded Cardiomegaly and central pulmonary venous congestion
--- NOTE | 2017-06-08 09:04 | PCM.RRT ---
<MonkMeghaYin - Last Filed: 06/08/17 08:59> PROFESSIONAL ORGANIZER Nurses Assessment - Situation Date: 06/08/17 Time PROFESSIONAL ORGANIZER was called: 06:59 PROFESSIONAL ORGANIZER Responder Arrival Time:: 07:03 PROFESSIONAL ORGANIZER Location:: Med/Surg Room Number: 668A PROFESSIONAL ORGANIZER Reason for Call: Change in Mental Status PROFESSIONAL ORGANIZER Called By: RN - IV IV Inserted during PROFESSIONAL ORGANIZER?: No New IV Insertion Tolerance: Excellent - Respiratory PROFESSIONAL ORGANIZER Delivery Method: Nasal Cannula @L/min Oxygen Flow Rate: 3 Received Nebulizer Treatments: No Was the Patient Ventilated with Bag/Mask 100% O2?: No Secretions Suctioned?: No Was the Patient Intubated?: No Was the Patient Placed on a Ventilator?: No - Ventilator Settings FIO2 (% Oxygen): 40 - Medication Medications Administered During PROFESSIONAL ORGANIZER: N/A - Diagnostic Test Ordered EKG: Yes Chest X-Ray: Yes CT Scan: No - Stat Labs Ordered PROFESSIONAL ORGANIZER Stat Labs Ordered: CBC, BMP CPR started during PROFESSIONAL ORGANIZER?: No - Vital Signs Vital Signs: Rapid Response Vital Sign Blood Pressure 143/85 Pulse Rate 96 Respiratory Rate 20 Temperature 97.9 F Oxygen Saturation 98 - Time PROFESSIONAL ORGANIZER Ended Time PROFESSIONAL ORGANIZER Ended: 07:20 - Vital Signs at end of PROFESSIONAL ORGANIZER Vital Signs at end of PROFESSIONAL ORGANIZER: Rapid Response End Vital Sign Blood Pressure 143/80 Pulse Rate 96 Respiratory Rate 20 Temperature 98.2 F O2 Sat by Pulse Oximetry 97 - Recommendations Notifications: Attending Physician - Neurological Status (Select all that apply): Alert, Responsive, Oriented, Verbal - Respiratory Oxygen Delivery Method: Nasal Cannula @L/min Oxygen Flow Rate: 3 - Constitutional Appears: No Acute Distress - Head Head Exam: ATRAUMATIC, NORMAL INSPECTION - Eyes Eye Exam: EOMI, Normal appearance - Respiratory Exam Respiratory Exam: Clear to Ausculation Bilateral, NORMAL BREATHING PATTERN - Cardiovascular Exam Cardiovascular Exam: REGULAR RHYTHM, +S1, +S2 - GI/Abdominal Exam GI & Abdominal Exam: Soft, Normal Bowel Sounds. absent: Tenderness - Neurological Exam Neurological Exam: Alert, Awake, Oriented x3 Additional exam: Flat Affect Plan - Assessment of Findings&Treatment Plan Rapid Response was called for patient for change in mental status. Per nurse the patient was not as response and she was not oriented x3. Patient's vitals were done: B/P 143/80; HR 95; Temp 98.2; O2 97%. Upon arrival patient was stable, oriented x3, and responsive to commands. Patient did have a flat affect and was not as quick with her responses as her usual. Labs were drawn this morning to f/u CBC and CMP. The patient's POA was notified of the rapid response and a consent was done for a PICC line with the POA to have IV access for the patient. Order was placed. The patient's attending Dr. Remy was notified. <Juwan Rowland H - Last Filed: 06/08/17 09:15> PROFESSIONAL ORGANIZER Nurses Assessment - Vital Signs Vital Signs: Rapid Response Vital Sign Blood Pressure 143/85 Pulse Rate 96 Respiratory Rate 20 Temperature 97.9 F Oxygen Saturation 98 - Vital Signs at end of PROFESSIONAL ORGANIZER Vital Signs at end of PROFESSIONAL ORGANIZER: Rapid Response End Vital Sign Blood Pressure 143/80 Pulse Rate 96 Respiratory Rate 20 Temperature 98.2 F O2 Sat by Pulse Oximetry 97 Attending/Attestation - Attestation I have personally seen and examined this patient.: Yes I have fully participated in the care of the patient.: Yes I have reviewed all pertinent clinical information, including history, physical exam and plan: Yes Notes (Text): 06/08/17 09:11 PROFESSIONAL ORGANIZER was called and we came and saw patient. The RN was concerned with regards to the patient's mental status. She was able to respond to us slowly in both Nepalese and Portuguese. She also followed some commands as well. BP and HR were stable, the SpO2 stable as well. Accucheck was done and stable She does not have peripheral IV access due to thirdspacing. Pending placement of PICC line later today. I think she can stay on the medical floors at this time. Overall prognosis and situation is unfourtunately poor. thank you Juwan Rowland
[2017-06-08] MEDS ORDERED: Fluconazole IV 200mg/100 ml NS 100 MG in Premixed IV 1 EA IVPB SCH (10:00)
[2017-06-08] MEDS: diltiaZEM 120 mg/24 Hours CD Cap PO SCH (10:57)
[2017-06-08] MEDS: Saccharomyces Boulardi 250 mg Cap PO SCH (10:57)
[2017-06-08] MEDS: Pantoprazole 40 mg EC Tab PO SCH (10:57)
--- NOTE | 2017-06-08 11:16 | CP.PCM.PN ---
Subjective - Date & Time of Evaluation Date of Evaluation: 06/08/17 Time of Evaluation: 06:15 - Subjective Subjective: General surgery progress note for Dr. Kenny Lemos, PGY-1 Pt S & E at bedside this AM. Pt very lethargic this AM, arousable to verbal and tactile stimuli, answering questions. Asked nursing to take pt's vitals and blood suger- blood sugar 115, VS stable. Requested lab work to be sent for evaluation. PROC TECH called for AMS at approximately 7am, determination for PICC line placement as there was no IV access. Objective - Vital Signs/Intake and Output Vital Signs (last 24 hours): Temp Pulse Resp BP Pulse Ox 97.3 F L 96 H 18 111/69 97 06/08/17 08:39 06/08/17 10:30 06/08/17 10:30 06/08/17 10:30 06/08/17 08:39 Intake and Output: 06/08/17 06/08/17 06:59 18:59 Output Total 980 0 Balance -980 0 - Medications Medications: Current Medications Acetaminophen (Tylenol 650mg/20.3ml Solution Ud) 650 mg PO Q4H PRN PRN Reason: Pain, moderate (4-7) Albuterol/Ipratropium (Duoneb 3 Mg/0.5 Mg (3 Ml) Ud) 3 ml INH RQ4 [facility] Last Admin: 06/08/17 10:59 Dose: 3 ml Calcium Carbonate (Oscal) 500 mg PO BID [facility] Last Admin: 06/08/17 10:57 Dose: 500 mg Diltiazem HCl (Cardizem Cd) 120 mg PO DAILY [facility] Last Admin: 06/08/17 10:57 Dose: 120 mg Ergocalciferol (Drisdol 50,000 Intl Units Cap) 1 cap PO Q7D [facility] Last Admin: 06/08/17 06:00 Dose: Not Given Fluconazole (Diflucan) 100 mg PO DAILY [facility] Last Admin: 06/08/17 10:58 Dose: 100 mg Furosemide (Lasix) 20 mg PO DAILY [facility] Last Admin: 06/08/17 10:23 Dose: Not Given Heparin Sodium (Porcine) (Heparin) 5,000 units SC Q8 [facility] Last Admin: 06/08/17 05:48 Dose: 5,000 units Insulin Aspart (Novolog) 0 unit SC ACHS [facility] PRN Reason: Protocol Last Admin: 06/08/17 08:20 Dose: Not Given Insulin Aspart (Novolog) 3 unit SC AC [facility] Last Admin: 06/08/17 08:00 Dose: Not Given Insulin Glargine (Lantus) 20 unit SC HS [facility] Last Admin: 06/07/17 22:15 Dose: Not Given Labetalol HCl (Trandate) 100 mg PO BID [facility] Last Admin: 06/08/17 10:57 Dose: 100 mg Linezolid (Zyvox) 600 mg PO Q12H [facility] Last Admin: 06/08/17 10:57 Dose: 600 mg Pantoprazole Sodium (Protonix Ec Tab) 40 mg PO DAILY [facility] Last Admin: 06/08/17 10:57 Dose: 40 mg Potassium Chloride (K-Dur 20 Meq Er Tab) 20 meq PO ONCE ONE Stop: 06/08/17 18:29 Saccharomyces Boulardii (Florastor) 250 mg PO DAILY [facility] Last Admin: 06/08/17 10:57 Dose: 250 mg Sodium Chloride (Sodium Chloride Tab) 2 gm PO TID [facility] Last Admin: 06/08/17 10:57 Dose: 2 gm - Labs Labs: 06/08/17 07:06 06/08/17 07:06 PT 16.6 SECONDS (9.7-12.2) H 06/05/17 07:23 INR 1.4 06/05/17 07:23 APTT 31 SECONDS (21-34) 05/25/17 07:51 - Constitutional Appears: Non-toxic, No Acute Distress, Chronically Ill - Head Exam Head Exam: ATRAUMATIC, NORMAL INSPECTION - Eye Exam Eye Exam: EOMI, Normal appearance - Neck Exam Neck Exam: Full ROM, Normal Inspection - Respiratory Exam Respiratory Exam: NORMAL BREATHING PATTERN - Cardiovascular Exam Cardiovascular Exam: Tachycardia, +S1, +S2 - GI/Abdominal Exam GI & Abdominal Exam: Soft. absent: Distended, Firm, Guarding, Rigid, Tenderness Additional comments: ostomy patent, no sanguinous blood in ostomy bag - Extremities Exam Extremities Exam: Normal Inspection - Neurological Exam Neurological Exam: absent: Alert - Psychiatric Exam Additional comments: lethargic, arousable to verbal stimuli - Skin Skin Exam: Dry, Intact, Normal Color, Warm Assessment and Plan - Assessment and Plan (Free Text) Assessment: 86F s/p exploratory laparotomy w/diverting colostomy & liver biopsy POD#14 Plan: Hgb 6.4 from 8.4 CXR with B/L pleural effusions R>L Cont monitor VS FU PICC line placement Replete electrolytes PRN Encourage IS use PT Monitor for signs of bleeding Must medically optimize prior to any surgical intervention Order for 2 units pRBCs as per primary team DW attending Aminta, PGY-1
--- NOTE | 2017-06-08 13:49 | PN ---
DATE: LOCATION: [facility], bed A. SUBJECTIVE: This is an 86-year-old female, seen and examined in rounds without significant clinical changes with a reported vancomycin-resistant Enterococcus blood culture. The patient is still lethargic, in a state of DNR and DNI. The entire chart is reviewed including but not limited to the most recent lab and radiology study results, current and the previous medication list, current and the previous medical events and today's labs showed significant drop of hemoglobin to 6.4 with hematocrit 18.2 with normal white blood cells and normal platelet count, but sodium of 129, low with low creatinine with blood glucose level 116, but low calcium at 6 with reported before low total protein and low albumin. Most recent chest x-ray done today, report and the film is seen indicative of persistent bilateral pleural effusion with left-sided infiltrate. Cardiomegaly and central pulmonary venous congestion reported. PHYSICAL EXAMINATION: GENERAL: An 86-year-old female. VITAL SIGNS: Afebrile with pulse of 92, respiratory rate 20 to 22, blood pressure 106/66. HEENT: Showed pale dry oral mucous membrane. Nonicteric sclerae. LUNGS: Few scattered crepitation. Decreased air entry at bases. HEART: Positive S1 and S2. ABDOMEN: Soft. Bowel sounds are present. No mass or organomegaly. No rebound tenderness or guarding. Clean abdominal dressing is in place with colostomy opening intact. No bleeding. EXTREMITIES: Lower extremity edematous changes. No clubbing or cyanosis. NEUROLOGIC: No reported new neurological deficits, sensory or motor. IMPRESSION: 1. Status post exploratory laparotomy with diverting colostomy. 2. 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 3. Anemia, most likely secondary to above. 4. Re-exacerbation of peptic ulcer disease. 5. Pleural effusion with pneumonia. 6. Known history of diabetes mellitus, hyperlipidemia, bilateral large renal cysts by radiology study results. SUGGESTION: 1. Continue conservative treatment. 2. Blood transfusion to keep hemoglobin around 10 gram percent. The patient again will need peripheral hyperalimentation. Sp Leblanc MD
--- NOTE | 2017-06-08 15:10 | PCM.SURG1 ---
Surgeon's Initial Post Op Note - Surgeon's Notes Surgeon: Chris John MD Disability Representative: NONE Type of Anesthesia: Local Pre-Operative Diagnosis: Poor venous access Operative Findings: US showed a patent right basilic vein Post-Operative Diagnosis: Poor venous access Operation Performed: Single lumen picc placement, 35 cm. Tip is in the SVC. Specimen/Specimens Removed: none Estimated Blood Loss: EBL {In ML}: 2 Blood Products Given: N/A Drains Used: No Drains Post-Op Condition: Fair Date of Surgery/Procedure: 06/08/17 Time of Surgery/Procedure: 15:05
[2017-06-08] MEDS ORDERED: Furosemide 10 mg/mL LIQ (60mL) PO ONE ×3 (15:34→23:00)
[2017-06-08 17:34] LABS: ALB/GLOB RATIO 0.9 (1.0-2.1); ALBUMIN 2.2 g/dL (3.5-5.0); ALT/SGPT 21 U/L (9-52); AST/SGOT 26 U/L (14-36); BLOOD UREA NITROGEN 12 mg/dL (7-17); CALCIUM 7.3 mg/dl (8.6-10.4); GFR AFRICAN-AMERICAN > 60; GFR NON-AFRICAN AMERICAN > 60
[2017-06-08] MEDS: Potassium Chloride 20 mEq ER Tab PO ONE ×2 (18:06→18:15)
[2017-06-08] MEDS ORDERED: Tolvaptan 15 MG TAB PO ONE (18:54)
--- NOTE | 2017-06-08 18:55 | CP.PCM.PN ---
Subjective - Date & Time of Evaluation Date of Evaluation: 06/08/17 Time of Evaluation: 20:00 - Subjective Subjective: Patient currently receiving prbc transfusion; tolerating diet; not complaining of abd pain; Objective - Vital Signs/Intake and Output Vital Signs (last 24 hours): Temp Pulse Resp BP Pulse Ox 97.7 F 96 H 18 150/90 98 06/08/17 15:43 06/08/17 15:43 06/08/17 15:43 06/08/17 18:35 06/08/17 15:43 Intake and Output: 06/08/17 06/08/17 06:59 18:59 Output Total 980 0 Balance -980 0 - Medications Medications: Current Medications Acetaminophen (Tylenol 650mg/20.3ml Solution Ud) 650 mg PO Q4H PRN PRN Reason: Pain, moderate (4-7) Acetaminophen (Tylenol 325mg Tab) 650 mg PO ONCE ONE Stop: 06/08/17 23:01 Albuterol/Ipratropium (Duoneb 3 Mg/0.5 Mg (3 Ml) Ud) 3 ml INH RQ4 [facility] Last Admin: 06/08/17 16:39 Dose: 3 ml Calcium Carbonate (Oscal) 500 mg PO BID [facility] Last Admin: 06/08/17 18:16 Dose: Not Given Diltiazem HCl (Cardizem Cd) 120 mg PO DAILY [facility] Last Admin: 06/08/17 10:57 Dose: 120 mg Diphenhydramine HCl (Benadryl) 25 mg PO ONCE ONE Stop: 06/08/17 23:01 Ergocalciferol (Drisdol 50,000 Intl Units Cap) 1 cap PO Q7D [facility] Stop: 07/20/17 06:15 Last Admin: 06/08/17 06:00 Dose: Not Given Fluconazole (Diflucan) 100 mg PO DAILY [facility] Last Admin: 06/08/17 10:58 Dose: 100 mg Furosemide (Lasix) 10 mg PO ONCE ONE Stop: 06/08/17 23:01 Furosemide (Lasix) 20 mg PO DAILY [facility] Tigecycline 100 mg/ Sodium (Chloride) 100 mls @ 100 mls/hr IVPB ONCE ONE Stop: 06/08/17 19:59 Tigecycline 50 mg/ Dextrose 100 mls @ 100 mls/hr IVPB Q12H [facility] Insulin Aspart (Novolog) 0 unit SC ACHS [facility] PRN Reason: Protocol Last Admin: 06/08/17 18:05 Dose: Not Given Insulin Aspart (Novolog) 3 unit SC AC [facility] Last Admin: 06/08/17 18:07 Dose: 3 unit Insulin Glargine (Lantus) 20 unit SC HS [facility] Last Admin: 06/07/17 22:15 Dose: Not Given Labetalol HCl (Trandate) 100 mg PO BID [facility] Last Admin: 06/08/17 18:14 Dose: Not Given Pantoprazole Sodium (Protonix Ec Tab) 40 mg PO DAILY [facility] Last Admin: 06/08/17 10:57 Dose: 40 mg Saccharomyces Boulardii (Florastor) 250 mg PO DAILY [facility] Last Admin: 06/08/17 10:57 Dose: 250 mg Sodium Chloride (Sodium Chloride Tab) 2 gm PO TID [facility] Last Admin: 06/08/17 18:15 Dose: Not Given Tolvaptan (Samsca) 15 mg PO ONCE ONE Stop: 06/08/17 18:55 - Labs Labs: 06/08/17 07:06 06/08/17 17:15 PT 16.6 SECONDS (9.7-12.2) H 06/05/17 07:23 INR 1.4 06/05/17 07:23 APTT 31 SECONDS (21-34) 05/25/17 07:51 - Constitutional Appears: Non-toxic, No Acute Distress - Eye Exam Eye Exam: absent: Scleral icterus - ENT Exam ENT Exam: Mucous Membranes Moist - Respiratory Exam Respiratory Exam: Clear to Ausculation Bilateral. absent: Respiratory Distress - Cardiovascular Exam Cardiovascular Exam: RRR, +S1, +S2 - GI/Abdominal Exam GI & Abdominal Exam: Soft. absent: Distended, Tenderness - Extremities Exam Additional comments: markedly edematous legs and arms b/l - Neurological Exam Neurological Exam: Alert, Awake - Psychiatric Exam Psychiatric exam: absent: Agitated - Skin Skin Exam: Warm. absent: Cyanosis Assessment and Plan (1) Hyponatremia Assessment & Plan: Mild but slightly worsened; will give dose of tolvaptan 15 mg one time; Status: Acute (2) Hypokalemia Assessment & Plan: Mild, patient refusing PO KCl; should increase K content in diet; if K drops further, supplement with IV KCl; Status: Acute (3) Hypertension Assessment & Plan: BP relatively controlled; continue labetalol and cardizem; Status: Acute (4) Proteinuria Status: Acute (5) Hypocalcemia Assessment & Plan: 25-OH vit D level low, continue ergocalciferol; awaiting PTH level; Status: Acute (6) Edema Assessment & Plan: Patient with anasarca; will benefit from increasing loop diuretics to bid dosing and starting small aldactone; will re-assess after hyponatremia improves; Status: Acute
--- NOTE | 2017-06-08 20:15 | CP.PCM.PN ---
Subjective - Date & Time of Evaluation Date of Evaluation: 06/08/17 Time of Evaluation: 13:05 - Subjective Subjective: Seen eating soup Objective - Vital Signs/Intake and Output Vital Signs (last 24 hours): Temp Pulse Resp BP Pulse Ox 98.4 F 85 20 135/76 98 06/08/17 20:02 06/08/17 20:02 06/08/17 20:02 06/08/17 20:02 06/08/17 15:43 Intake and Output: 06/08/17 06/09/17 18:59 06:59 Intake Total 0 Output Total 0 Balance 0 0 - Medications Medications: Current Medications Acetaminophen (Tylenol 650mg/20.3ml Solution Ud) 650 mg PO Q4H PRN PRN Reason: Pain, moderate (4-7) Acetaminophen (Tylenol 325mg Tab) 650 mg PO ONCE ONE Stop: 06/08/17 23:01 Albuterol/Ipratropium (Duoneb 3 Mg/0.5 Mg (3 Ml) Ud) 3 ml INH RQ4 [facility] Last Admin: 06/08/17 19:02 Dose: 3 ml Calcium Carbonate (Oscal) 500 mg PO BID [facility] Last Admin: 06/08/17 18:16 Dose: Not Given Diltiazem HCl (Cardizem Cd) 120 mg PO DAILY [facility] Last Admin: 06/08/17 10:57 Dose: 120 mg Diphenhydramine HCl (Benadryl) 25 mg PO ONCE ONE Stop: 06/08/17 23:01 Ergocalciferol (Drisdol 50,000 Intl Units Cap) 1 cap PO Q7D [facility] Stop: 07/20/17 06:15 Last Admin: 06/08/17 06:00 Dose: Not Given Fluconazole (Diflucan) 100 mg PO DAILY [facility] Last Admin: 06/08/17 10:58 Dose: 100 mg Furosemide (Lasix) 10 mg PO ONCE ONE Stop: 06/08/17 23:01 Furosemide (Lasix) 20 mg PO DAILY [facility] Tigecycline 50 mg/ Dextrose 100 mls @ 100 mls/hr IVPB Q12H [facility] Insulin Aspart (Novolog) 0 unit SC ACHS [facility] PRN Reason: Protocol Last Admin: 06/08/17 18:05 Dose: Not Given Insulin Aspart (Novolog) 3 unit SC AC [facility] Last Admin: 06/08/17 18:07 Dose: 3 unit Insulin Glargine (Lantus) 20 unit SC HS [facility] Last Admin: 06/07/17 22:15 Dose: Not Given Labetalol HCl (Trandate) 100 mg PO BID [facility] Last Admin: 06/08/17 18:14 Dose: Not Given Pantoprazole Sodium (Protonix Ec Tab) 40 mg PO DAILY [facility] Last Admin: 06/08/17 10:57 Dose: 40 mg Saccharomyces Boulardii (Florastor) 250 mg PO DAILY [facility] Last Admin: 06/08/17 10:57 Dose: 250 mg Sodium Chloride (Sodium Chloride Tab) 2 gm PO TID [facility] Last Admin: 06/08/17 18:15 Dose: Not Given - Labs Labs: 06/08/17 07:06 06/08/17 17:15 PT 16.6 SECONDS (9.7-12.2) H 06/05/17 07:23 INR 1.4 06/05/17 07:23 APTT 31 SECONDS (21-34) 05/25/17 07:51 - Head Exam Head Exam: ATRAUMATIC - Eye Exam Eye Exam: Normal appearance - ENT Exam ENT Exam: Mucous Membranes Dry - Respiratory Exam Respiratory Exam: NORMAL BREATHING PATTERN - Cardiovascular Exam Cardiovascular Exam: +S1, +S2 - GI/Abdominal Exam GI & Abdominal Exam: Normal Bowel Sounds - Extremities Exam Extremities Exam: Pedal Edema Assessment and Plan (1) Colon adenocarcinoma Assessment & Plan: stage IV outpatient chemotherapy Status: Acute (2) Anemia Assessment & Plan: 2U PRBC ordered for today chronic disease Status: Acute (3) Coagulopathy Status: Acute
--- NOTE | 2017-06-08 20:18 | CP.PCM.PN ---
Subjective - Date & Time of Evaluation Date of Evaluation: 06/08/17 Time of Evaluation: 03:00 - Subjective Subjective: dictated Objective - Vital Signs/Intake and Output Vital Signs (last 24 hours): Temp Pulse Resp BP Pulse Ox 98.4 F 85 20 135/76 98 06/08/17 20:02 06/08/17 20:02 06/08/17 20:02 06/08/17 20:02 06/08/17 15:43 Intake and Output: 06/08/17 06/09/17 18:59 06:59 Intake Total 0 Output Total 0 Balance 0 0 - Medications Medications: Current Medications Acetaminophen (Tylenol 650mg/20.3ml Solution Ud) 650 mg PO Q4H PRN PRN Reason: Pain, moderate (4-7) Acetaminophen (Tylenol 325mg Tab) 650 mg PO ONCE ONE Stop: 06/08/17 23:01 Albuterol/Ipratropium (Duoneb 3 Mg/0.5 Mg (3 Ml) Ud) 3 ml INH RQ4 [facility] Last Admin: 06/08/17 19:02 Dose: 3 ml Calcium Carbonate (Oscal) 500 mg PO BID [facility] Last Admin: 06/08/17 18:16 Dose: Not Given Diltiazem HCl (Cardizem Cd) 120 mg PO DAILY [facility] Last Admin: 06/08/17 10:57 Dose: 120 mg Diphenhydramine HCl (Benadryl) 25 mg PO ONCE ONE Stop: 06/08/17 23:01 Ergocalciferol (Drisdol 50,000 Intl Units Cap) 1 cap PO Q7D [facility] Stop: 07/20/17 06:15 Last Admin: 06/08/17 06:00 Dose: Not Given Fluconazole (Diflucan) 100 mg PO DAILY [facility] Last Admin: 06/08/17 10:58 Dose: 100 mg Furosemide (Lasix) 10 mg PO ONCE ONE Stop: 06/08/17 23:01 Furosemide (Lasix) 20 mg PO DAILY [facility] Tigecycline 50 mg/ Dextrose 100 mls @ 100 mls/hr IVPB Q12H [facility] Insulin Aspart (Novolog) 0 unit SC ACHS [facility] PRN Reason: Protocol Last Admin: 06/08/17 18:05 Dose: Not Given Insulin Aspart (Novolog) 3 unit SC AC [facility] Last Admin: 01/25/18 18:07 Dose: 3 unit Insulin Glargine (Lantus) 20 unit SC HS [facility] Last Admin: 06/07/17 22:15 Dose: Not Given Labetalol HCl (Trandate) 100 mg PO BID [facility] Last Admin: 06/08/17 18:14 Dose: Not Given Pantoprazole Sodium (Protonix Ec Tab) 40 mg PO DAILY [facility] Last Admin: 06/08/17 10:57 Dose: 40 mg Saccharomyces Boulardii (Florastor) 250 mg PO DAILY [facility] Last Admin: 06/08/17 10:57 Dose: 250 mg Sodium Chloride (Sodium Chloride Tab) 2 gm PO TID [facility] Last Admin: 06/08/17 18:15 Dose: Not Given - Labs Labs: 06/08/17 07:06 06/08/17 17:15 PT 16.6 SECONDS (9.7-12.2) H 06/05/17 07:23 INR 1.4 06/05/17 07:23 APTT 31 SECONDS (21-34) 05/25/17 07:51
[2017-06-08] MEDS: (Lantus) Insulin Glargine, Recombinant SC SCH (22:41)
--- NOTE | 2017-06-09 01:20 | PN ---
DATE: SUBJECTIVE: The patient was in bed. She has had new PICC line placed. Her hemoglobin has dropped to 6.4 something. She was going to get transfusion today, which is new to me and I am told that the stoma of the colostomy site is inverted and may need another procedure. She is otherwise afebrile. She is tired. PHYSICAL EXAMINATION: VITAL SIGNS: T-max is 98.4, pulse 85, blood pressure 135/76, respirations are 20 when I am dictating the note. HEENT: Head is atraumatic. NECK: Supple. LUNGS: Clear. No crackles or rales present. HEART: S1 and S2 are regular. ABDOMEN: Remains with colostomy as well as surgical site. EXTREMITIES: Remain with bilateral edema. She has generalized edema actually. LABORATORY DATA: Labs are noted. Labs show white count is 6.9, hematocrit 18.2, platelet count is 215. Her hemoglobin has dropped. BUN is 12, creatinine 0.5. ASSESSMENT AND PLAN: She may have a hematoma. Microbiology wall, her wound culture has no growth and the other one grew vancomycin-resistant Enterococcus. This was taken from the sites of the drain sites and vancomycin-resistant Enterococcus is more sensitive to Tygacil than linezolid and we probably will put her on linezolid and she did not have a take up with the linezolid and we put her on Tygacil and change the Diflucan to intravenous as did to have an intravenous access yesterday when I started that and I have told them to change the Bailey catheter tomorrow and she may probably be going for operating room. She also has abdominal malignancy, which was not operable. Liborio Maravilla MD
--- NOTE | 2017-06-09 06:57 | CP.PCM.PN ---
<LachoMegha SYin - Last Filed: 06/09/17 18:14> Subjective - Date & Time of Evaluation Date of Evaluation: 06/09/17 Time of Evaluation: 07:00 - Subjective Subjective: Medicine Progress Note: Patient was seen and examined at bedside in the AM. Patient states she is feeling better today. Patient states she has been eating well and her swelling has decreased slightly. Patient denies fever, nausea or vomiting. Objective - Vital Signs/Intake and Output Vital Signs (last 24 hours): Temp Pulse Resp BP Pulse Ox 96.5 F L 86 20 157/70 H 97 06/09/17 03:43 06/09/17 03:43 06/09/17 03:43 06/09/17 03:43 06/09/17 00:07 Intake and Output: 06/08/17 06/09/17 18:59 06:59 Intake Total 1150 Output Total 0 3040 Balance 0 -1890 - Medications Medications: Current Medications Acetaminophen (Tylenol 650mg/20.3ml Solution Ud) 650 mg PO Q4H PRN PRN Reason: Pain, moderate (4-7) Albuterol/Ipratropium (Duoneb 3 Mg/0.5 Mg (3 Ml) Ud) 3 ml INH RQ4 [facility] Last Admin: 06/08/17 19:02 Dose: 3 ml Calcium Carbonate (Oscal) 500 mg PO BID [facility] Last Admin: 06/08/17 18:16 Dose: Not Given Diltiazem HCl (Cardizem Cd) 120 mg PO DAILY [facility] Last Admin: 06/08/17 10:57 Dose: 120 mg Ergocalciferol (Drisdol 50,000 Intl Units Cap) 1 cap PO Q7D [facility] Stop: 07/20/17 06:15 Last Admin: 06/08/17 06:00 Dose: Not Given Fluconazole (Diflucan) 100 mg PO DAILY [facility] Last Admin: 06/08/17 10:58 Dose: 100 mg Furosemide (Lasix) 20 mg PO DAILY [facility] Last Admin: 06/09/17 00:09 Dose: Not Given Tigecycline 50 mg/ Dextrose 100 mls @ 100 mls/hr IVPB Q12H [facility] Fluconazole (Diflucan Iv 100 Mg/50 Ml Ns) 50 mls @ 50 mls/hr IVPB DAILY [facility] Insulin Aspart (Novolog) 0 unit SC ACHS [facility] PRN Reason: Protocol Last Admin: 06/08/17 22:06 Dose: Not Given Insulin Aspart (Novolog) 3 unit SC AC [facility] Last Admin: 06/08/17 18:07 Dose: 3 unit Insulin Glargine (Lantus) 20 unit SC HS [facility] Last Admin: 06/08/17 22:41 Dose: 20 units Labetalol HCl (Trandate) 100 mg PO BID [facility] Last Admin: 06/08/17 18:14 Dose: Not Given Pantoprazole Sodium (Protonix Ec Tab) 40 mg PO DAILY [facility] Last Admin: 06/08/17 10:57 Dose: 40 mg Saccharomyces Boulardii (Florastor) 250 mg PO DAILY [facility] Last Admin: 06/08/17 10:57 Dose: 250 mg Sodium Chloride (Sodium Chloride Tab) 2 gm PO TID [facility] Last Admin: 06/08/17 18:15 Dose: Not Given - Labs Labs: 06/08/17 07:06 06/08/17 17:15 PT 16.6 SECONDS (9.7-12.2) H 06/05/17 07:23 INR 1.4 06/05/17 07:23 APTT 31 SECONDS (21-34) 05/25/17 07:51 - Constitutional Appears: No Acute Distress, Chronically Ill - Head Exam Head Exam: ATRAUMATIC, NORMAL INSPECTION - Eye Exam Eye Exam: EOMI, Normal appearance - ENT Exam ENT Exam: Mucous Membranes Moist - Respiratory Exam Respiratory Exam: Clear to Ausculation Bilateral, NORMAL BREATHING PATTERN - Cardiovascular Exam Cardiovascular Exam: REGULAR RHYTHM, +S1, +S2 - GI/Abdominal Exam GI & Abdominal Exam: Soft, Tenderness, Normal Bowel Sounds Additional comments: colostomy bag with 2 drains - Extremities Exam Extremities Exam: Pedal Edema (bilateral lower extremity edema and left arm edema ). absent: Tenderness - Neurological Exam Neurological Exam: Alert, Awake, Oriented x3 - Psychiatric Exam Psychiatric exam: Normal Affect, Normal Mood - Skin Skin Exam: Dry, Intact, Normal Color, Warm Assessment and Plan - Assessment and Plan (Free Text) Assessment: 1). Sigmoid colon mass/Liver lesion likely mets/Weight loss and abdominal pain * CT-Abd/Pelvis on admission showed 8.6 cm sigmoid mass with extensive hepatic metastasis. Bilateral renal cysts with large right upper pole renal cyst. Small bilateral pleural effusion and small pericardial effusion. Small hiatal hernia. Possible small diverticulum of the herniated stomach * Repeat Abd/Pel CT (05/30): no ureteral injury; bulk tumor in pelvis and hepatic mets disease; increasing pleural effusion in consolidative changes at the lung base; stable pericardial effusion; severe post-op anasarca. * CEA elevated @ 11.6. (Normal = 0-3.0) * Colonscopy (05/22/17): Non-bleeding external and internal hemorrhoids. 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 At the level of the distal sigmoid colon, contrast slowly traversed through a very thin and irregular channel to the level of the mid sigmoid at the site of the known sigmoid carcinoma. Contrast did not flow freely past this level. Exam was subsequently terminated. These findings were concerning for a near complete obstruction of the bowel lumen from the adjacent obstructing tumor. * Venous dopplers UE&LE b/l ordered due to edema and cancer: f/u results * Calorie count and monitoring Consults * GI consult Dr Foster ,appreciated * recommends peripheral hyperalimentation * Started PPN on 06/01/17 with electrolytes - PPN stopped 06/02 due to elevated glucose - Dietary Consult --> help appreciated * Dr Bright oncology consult - Recs appreciated * suggests consulting IR for FNA biopsy of liver lesions to obtain diagnosis * Surgery consult Dr Richard-appreciated * 05/25/17: Patient underwent laparotomy with diverting colostomy and liver biopsy. She was found to have the colonic mass invading the bladder and therefore was not entirely resectable * Liver Biopsy: necrotic tissue * NGT removed on 05/29/17 * Discontinued naqvi 05/31 * Patient scheduled for osteomy revision on 06/06/17 was canceled per surgery due to hyponatremia * Patient is scheduled for osteotomy revision on 06/10/17 * IR consulted for FNA biopsy of liver lesions for cancer diagnosis; help appreciated * Liver FNA biopsy: fragments of adenocarcinoma associated wiht necrosis, consistent with colonic primary Medications: * HOLD- Dilaudid 0.5mg IV Q4 PRN for pain control * Tylenol PRN for pain 2). Sepsis * leukocytosis, bandemia * procalcitonin trending down: 4.15 --> 1.82--> 0.78 * Blood cx (05/28): no growth; urine cx: no growth * Peritoneal fluid stain: negative * Repeat blood cultures (05/29/17): negative * UA: 1+ protein, 1+ blood, 1+ LE, WBC29, RBC32, Occ bacteria * ID consulted: Dr. Maravilla --> help appreciated * Meropenem 1gm IV Q12 discontinued * Vanco 750mg IV Q24 discontinued * Discontinued Flagyl 500mg IV Q8h (started 05/30/17) * CXR (06/01): moderate left, small right pleural effusion; moderate venous congestions; confluent opacities in left mid to lower and right mid to lower lung; cardiomegaly * Urine Culture: Yeast species * Fluconazole 100mg po daily started 06/08 * DARRYL drain cx: VRE + * Tigecycline 100 mg IV x 1 dose 06/08/17 then 50 mg IV Q12H starting 06/09/17 3). DM 2 * Aspart ISS Q6H Low Dose * Accuchecks -moderate * Lantus 20 units HS (increased from 10 units on 06/03) * Novolog 3 units SCqAC * A1c: 8.4 4).Hypertension * Labetolol 100mg Q12H, Enalapril 15 mg Daily, and Cardizem [id number] Daily 5). Acute Anemia - Type and Screen - 2 units of PRBC to be given 06/08/17 - Tylenol 650mg to be given 30 minutes before each blood transfusion - Benadryl 25mg to be given 30 minutes before each blood transfusion - Lasix 10mg to be given 30 minutes before each blood transfusion - s/p transfusion of 2 units hemaglobin 12.3 * F/U: Iron Sat, Iron/TIBC, Ferritin, and Reticulocyte Count * Continue to monitor 6). Pericardial effusion/cardiomegaly * Cardiology Consulted (Dr. Portillo) - help appreciated * as per Dr. Portillo, continue medical therapy; effusion is small; LV function is normal * ECHO (05/20/17): Diastolic Dysfunction Grade I-abnormal relaxation pattern, Trace TR and MR 7). Bilateral Renal Cysts * U/S Renal 05/26/17: Right Upper Pole renal cyst measures approximately 10.4x8.3x9.2 cm. Left upper pole renal cyst measures 2.2x1.4x1.6 cm * Will need follow up U/S in 6 months 8). Respiratory Acidosis * Patient was extubated on 05/26/17 and placed on BiPap and Bicarb Drip * Patient no longer on BiPap or bicarb drip 9). Pleural Effusion * CXR (06/01): moderate left, small right pleural effusion; moderate venous congestions; confluent opacities in left mid to lower and right mid to lower lung; cardiomegaly * Chest CT: moderate b/l pleural effusion with b/l lower lobe segmental/ subsegmental atelectasis; cardiomegaly with small pericardial effusion; probably widespread hepatic metastasis. * Continue Duonebs Q4 * Pulmonology consulted, Dr. Cherry, help appreciated * IR consulted for therapeutic thoracentesis for pleural effusions; as per IR, US showed small pleural effusions not amenable to thoracentisis. 10.) Hypervolemic Hyponatremia - likely secondary to SIADH - Nephrology Consult: Dr. Lennon --> help appreciated - Urine sodium 43 - Urine Osmolality 563 - 1.5L of fluid restriction - Lasix 20mg Po daily - Sodium Chloride 2gm PO TID - Tolvaptan 15mg po x1 dose 06/08/17 11.) Hypocalcemia - Calcium gluconate 2g @125ml/hr 12.) IV Access - Consent was done with POA - PICC line placed today 06/08/17 13.). DVT and GI prophylaxis * Heparin 5000sc Q8- HOLD * Dilaudid 0.5 mg IV Q4H PRN Severe Pain * Protonix 40 mg IV Q12H * PT/OT * Incentive spirometry * Palliative care: patient is DNR/DNI as of 05/29/17. Polst form completed. * Diet: Diabetic diet Son Dominick Mckoy ([phone]) Niece Lucretia Prabhakar ([phone]) as POA/Health Care Proxy Disposition: Patient scheduled for osteomy revision on 06/10/[address] Richard. Patient placed NPO@VT. Patient accepted to [facility]. Case discussed with Dr. Jonel Monk PGY-1 <Arya Remy - Last Filed: 06/09/17 20:41> Objective - Vital Signs/Intake and Output Vital Signs (last 24 hours): Temp Pulse Resp BP Pulse Ox 98.0 F 79 20 129/79 96 06/09/17 16:46 06/09/17 16:46 06/09/17 16:46 06/09/17 17:20 06/09/17 16:46 Intake and Output: 06/09/17 06/10/17 18:59 06:59 Intake Total 530 Output Total 2875 Balance -2345 - Medications Medications: Current Medications Acetaminophen (Tylenol 650mg/20.3ml Solution Ud) 650 mg PO Q4H PRN PRN Reason: Pain, moderate (4-7) Albuterol/Ipratropium (Duoneb 3 Mg/0.5 Mg (3 Ml) Ud) 3 ml INH RQ4 [facility] Last Admin: 06/09/17 19:53 Dose: 3 ml Calcium Carbonate (Oscal) 500 mg PO BID [facility] Last Admin: 06/09/17 17:20 Dose: 500 mg Diltiazem HCl (Cardizem Cd) 120 mg PO DAILY [facility] Last Admin: 06/09/17 10:37 Dose: 120 mg Ergocalciferol (Drisdol 50,000 Intl Units Cap) 1 cap PO Q7D [facility] Stop: 07/20/17 06:15 Last Admin: 06/08/17 06:00 Dose: Not Given Fluconazole (Diflucan) 100 mg PO DAILY [facility] Last Admin: 06/09/17 10:07 Dose: 100 mg Furosemide (Lasix) 20 mg PO BID [facility] Last Admin: 06/09/17 17:20 Dose: 20 mg Tigecycline 50 mg/ Dextrose 100 mls @ 100 mls/hr IVPB Q12H [facility] Last Admin: 06/09/17 18:29 Dose: 100 mls/hr Fluconazole (Diflucan Iv 100 Mg/50 Ml Ns) 50 mls @ 50 mls/hr IVPB DAILY [facility] Last Admin: 06/09/17 10:08 Dose: 50 mls/hr Insulin Aspart (Novolog) 0 unit SC ACHS [facility] PRN Reason: Protocol Last Admin: 06/09/17 16:45 Dose: Not Given Insulin Aspart (Novolog) 3 unit SC AC [facility] Last Admin: 06/09/17 17:21 Dose: 3 unit Insulin Glargine (Lantus) 20 unit SC HS [facility] Last Admin: 06/08/17 22:41 Dose: 20 units Labetalol HCl (Trandate) 100 mg PO BID [facility] Last Admin: 06/09/17 17:20 Dose: 100 mg Pantoprazole Sodium (Protonix Ec Tab) 40 mg PO DAILY [facility] Last Admin: 06/09/17 10:07 Dose: 40 mg Saccharomyces Boulardii (Florastor) 250 mg PO DAILY [facility] Last Admin: 06/09/17 10:39 Dose: Not Given - Labs Labs: 06/09/17 08:26 06/09/17 11:23 PT 15.7 SECONDS (9.7-12.2) H 06/09/17 18:11 INR 1.4 06/09/17 18:11 APTT 33 SECONDS (21-34) 06/09/17 18:11 Attending/Attestation - Attestation I have personally seen and examined this patient.: Yes I have fully participated in the care of the patient.: Yes I have reviewed all pertinent clinical information, including history, physical exam and plan: Yes Notes (Text): 06/09/17 20:32 Patient was seen and examined with the resident 06/09/17. Exam, assessment and plan were gone over with the resident. Also on Exam: GI: Central surgical site with deel with NO dehiscence/cellulitis noted, Colostomy bag in Left mid quadrant with light green watery stool Ext: 2+ pitting edema involving the bilateral LE from the feet to just below the knees, 1+ pitting edema of the bilateral arms Assessments: 1). Sigmoid Colon Mass/Liver Metastasis: Patient underwent laparotomy with diverting colostomy and liver biopsy on . She was found to have the colonic mass invading the bladder and therefore was not entirely resectable. KRAS mutation testing ordered by Heme/Onc Dr. Angella Bright and then outpatient Chemotherapy.. Revision of Colostomy by Surgery Dr. Richard is planned for morning 06/10/17: patient is currently medically optimized for this procedure. 2). Hx Respiratory Acidosis 3). Sepsis Urine Culture 05/30/17 shows NO growth Urine Culture 06/04/17 showed Yeast and patient started on Fluconazole 100 mg PO 1x/day 06/08/17 Blood Culture 05/28/17 and 05/29/17 was negative at 5 days Peritoneal Fluid 05/30/17 showed NO growth DARRYL Drain Culture x 1 06/04/17 showed VRE: Tigecycline 100 mg IV x 1 dose 06/08/17 then 50 mg IV Q12H was started06/09/[address] Maravilla 4). Hx DM 2 Insulin was adjusted on evening 06/06/17 as Surgery was concerned about the blood glucose being in the high 200s. However due to this adjustment, patient had episode of hypoglycemia again on morning of 06/07/17. Keep regimen for now: Lantus 20 Units SC HS and Aspart 3 Units SC ACMeals due to the patient's inconsistent eating 5). Hx HTN Diltiazem CD 120 mg PO 1x/day Labetolol 100 mg PO 2x/day 6). Anemia Likely Secondary To Chronic Disease/Colon CA 2 Units of PRBC given 06/08/17 after PICC line placement: HgB/Hct are now stable 7). Pericardial Effusion/Cardiomegaly 8). Bilateral Renal Cysts 9). Leukocytosis Likely Secondary to Sepsis: see Assessment and Plan #3 Leukocytosis has now resolved 10). Hypervolemic Hyponatremia Lasix 20 mg PO 1x/day NaCl 2 gm PO 3x/day Tolvaptan 15 mg PO x 1 dose 06/08/17: Na has normalized Nephrology Dr. Lennon 11). Low Albumin Likely secondary to recent surgery/poor intake Albumin 12.5 gm x 4 doses finished on 06/07/17 12). Bilateral Pleural Effusion As per CT Chest 06/02/[address] John attempted Thoracentesis but too small and not amenable to thoracentesis 13). Bilateral UE and LE Edema Bilateral UE Doppler 06/03/17: Superficial Thrombosis Right Basilic Vein and NO DVT Bilateral LE Doppler 06/03/17: NO DVT 14). Hypocalcemia Calcium Gluconate 2 gm IV given 06/08/17 after PICC line placement: when corrected for low albumin, Ca now has normalized 15). Low Vitamin D Vitamin D 50,000 Units once a week for 8 weeks starting 06/08/17 16). Hypokalemia Patient refused PO KCl and therefore KCl 20 mEQ IV x 1 dose given 06/09/17 17). Hypomagnesemia Mag Sulfate 1 gm IV x 1 dose given 06/09/17 18). Prophylaxis Duoneb Tylenol Heparin placed on HOLD in light of low HgB/Hct on 06/08/17 Protonix Florastor 06/07/17: two phlebotomists attempted to draw blood for CBC but not successful. Attempted to get PICC line for access however patient declined and wanted to be left alone and agreed to have placed on 06/08/17. 06/08/17: PICC Line placed. Surgery Dr. Richard holding off on revision of Colostomy for now until patient more medical stable. 06/09/17: Patient has been medically optimized for revision of Colostomy for morning 06/10/17. Surgery Team has been notified. Arya Remy D.O.
[2017-06-09] MEDS: Tigecycline 50 MG in Dextrose 5% In Water 100 ML IVPB SCH ×2 (07:27→18:29)
[2017-06-09] MEDS: Albuterol-Ipratrop 3 mg / 0.5 (3 ml) UD INH SCH ×4 (07:45→19:53)
[2017-06-09] MEDS: (Novolog) Insulin Aspart, Recombinant 100 u/ml 10 ml vial SC SCH ×8 (07:57→22:32)
[2017-06-09 08:47] LABS: BASO # 0.1 K/uL (0.0-0.2); BASO % 0.9 % (0.0-2.0); EOS # 0.1 K/uL (0.0-0.7); EOS % 0.8 % (0.0-4.0); LYMPH # 1.2 K/uL (1.0-4.3); LYMPH % 12.3 % (20.0-40.0); MEAN CORPUSCULAR HEMOGLOBIN 29.9 pg (27.0-31.0); MEAN CORPUSCULAR HGB CONC 34.9 g/dL (33.0-37.0); MEAN PLATELET VOLUME 8.2 fL (7.2-11.7); MONO # 0.7 K/uL (0.0-0.8); MONO % 7.9 % (0.0-10.0); NEUT # 7.3 K/uL (1.8-7.0); NEUT % 78.1 % (50.0-75.0); RBC 4.1 Mil/uL (3.80-5.20); RED CELL DISTRIBUTION WIDTH 17.7 % (11.5-14.5); WHITE BLOOD COUNT 9.4 K/uL (4.8-10.8)
[2017-06-09] MEDS ORDERED: Fluconazole IV 200mg/100 ml NS 100 MG in Premixed IV 1 EA IVPB SCH (10:00)
[2017-06-09] MEDS: Pantoprazole 40 mg EC Tab PO SCH (10:07)
[2017-06-09] MEDS: Fluconazole IV 100mg/50 ml NS 50 ML IVPB SCH (10:08)
[2017-06-09] MEDS: diltiaZEM 120 mg/24 Hours CD Cap PO SCH (10:37)
[2017-06-09] MEDS: Saccharomyces Boulardi 250 mg Cap PO SCH (10:39)
[2017-06-09 11:44] LABS: ALB/GLOB RATIO 0.8 (1.0-2.1); ALBUMIN 2.3 g/dL (3.5-5.0); ALT/SGPT 16 U/L (9-52); AST/SGOT 30 U/L (14-36); BLOOD UREA NITROGEN 13 mg/dL (7-17); GFR AFRICAN-AMERICAN > 60; GFR NON-AFRICAN AMERICAN > 60; MAGNESIUM 1.5 mg/dL (1.6-2.3)
--- NOTE | 2017-06-09 11:52 | US ---
Date of procedure: 06/08/2017 Procedure: Ultrasound guidance for vascular access HISTORY: Infection requiring long-term IV antibiotics TECHNIQUE: Following informed consent and procedure time-out, the patient placed supine on the interventional table and the right arm prepped and draped in the usual sterile fashion. Ultrasound showed a patent and compressible basilic vein. After the skin was anesthetized with lidocaine, the basilic vein was accessed with micro micropuncture technique using ultrasound guidance. An image documenting ultrasound guidance for vascular access was permanently saved. IMPRESSION: Ultrasound guidance for vascular access for placement of PICC.
--- NOTE | 2017-06-09 11:53 | RAD ---
PROCEDURE: Date of procedure: 06/08/2017 Procedure: 1. Placement of a right arm PICC with ultrasound and fluoroscopic guidance, CPT 98647 2. PICC tip confirmation with spot radiograph and is in the superior vena cava Medications: 1 percent lidocaine Total Fluoro time: 4.5 seconds Radiation: 1.1 MGy EBL: 2 cc HISTORY: Infection requiring long-term IV antibiotics TECHNIQUE: Following informed consent and procedure time-out, the patient was placed supine on the interventional table and the right arm prepped and draped in the usual sterile fashion. Ultrasound showed a patent and compressible right basilic vein. After the skin was anesthetized with lidocaine, the basilic vein was accessed with micro micropuncture technique using ultrasound guidance. A guidewire was then advanced under fluoroscopic guidance into the superior vena cava. An image documenting ultrasound guidance for vascular access was permanently saved. The length of the single-lumen 4 Serbian PICC was trimmed to 35 centimeters and advanced through a peel-away sheath. The PICC was position with tip of PICC confirm a spot radiograph the superior vena cava. The PICC was secured to the patient's skin. The PICC was flushed. A biopatch and sterile dressing was applied. IMPRESSION: Placement of a single-lumen 4 Serbian PICC trimmed to 35 centimeters via right basilic vein. The tip of the PICC is confirmed with spot radiograph and is in the superior vena cava.
[2017-06-09 12:08] LABS: HEMOGLOBIN 12.3 g/dL (11.0-16.0); MEAN CELL VOLUME 85.7 fL (81.0-99.0)
--- NOTE | 2017-06-09 12:41 | PN ---
DATE: LOCATION: [facility], bed A. SUBJECTIVE: This is an 86-year-old female in a status of DNR and DNI, seen and examined in rounds early today without reported active bleeding or significant complaint of shortness of breath. No chills or fever whose Bailey catheter is still in place, received blood transfusion earlier. The entire chart is reviewed including but not limited to the most recent lab and radiology study results, current and the previous medication list, current and the previous medical events. Case discussed with the staff at length. The patient had PICC line insertion under ultrasound and fluoroscopic guidance yesterday. Most recent lab results done today showed low potassium of 3.4 with low creatinine, low calcium 8.0, low magnesium 1.5, elevated alkaline phosphatase to 62 with low albumin 2.3, low total protein 5.2. PHYSICAL EXAMINATION: GENERAL: An 86-year-old female. VITAL SIGNS: Afebrile with pulse of 84, respiratory rate 20 to 22, blood pressure of 150/82. HEENT: Showed mildly pale dry oral mucous membrane. Nonicteric sclerae. LUNGS: Few scattered crepitation with decreased air entry at bases. HEART: Positive S1 and S2. ABDOMEN: Soft. Colostomy tube is in place and intact with traces of semiliquid solid fecal material. Still covered with clean dressing. No bleeding reported. EXTREMITIES: Lower extremity edematous changes. No clubbing or cyanosis, but evidence of mild muscle wasting syndrome. NEUROLOGIC: No reported new neurological deficits, sensory or motor. IMPRESSION: 1. 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 2. Status post diverting colostomy with status post exploratory laparotomy. 3. Re-exacerbation of peptic ulcer disease. 4. Anemia secondary to above. 5. Pneumonia with pleural effusion by recent history. 6. Known history of but not limited to hyperlipidemia, diabetes mellitus. SUGGESTION: 1. Continue current management. 2. Physical therapy. 3. Blood transfusion as needed to keep hemoglobin around 10 gram percent. 4. No advised further aggressive GI workup in the meantime. Further recommendation to follow. Sp Leblanc MD
--- NOTE | 2017-06-09 13:50 | CP.PCM.PN ---
Subjective - Date & Time of Evaluation Date of Evaluation: 06/09/17 Time of Evaluation: 08:00 - Subjective Subjective: General Surgery Progress Note for Dr. Richard This patient was seen and examined this Am at bedside. Pt received one PRBC over night. Serous output from drain 100cc. no blood from stoma. Bailey in place. Objective - Vital Signs/Intake and Output Vital Signs (last 24 hours): Temp Pulse Resp BP Pulse Ox 97.5 F L 86 20 139/72 100 06/09/17 08:00 06/09/17 08:00 06/09/17 08:00 06/09/17 10:08 06/09/17 08:00 Intake and Output: 06/09/17 06/09/17 06:59 18:59 Intake Total 1150 Output Total 3040 Balance -1890 - Medications Medications: Current Medications Acetaminophen (Tylenol 650mg/20.3ml Solution Ud) 650 mg PO Q4H PRN PRN Reason: Pain, moderate (4-7) Albuterol/Ipratropium (Duoneb 3 Mg/0.5 Mg (3 Ml) Ud) 3 ml INH RQ4 [facility] Last Admin: 06/09/17 11:47 Dose: 3 ml Calcium Carbonate (Oscal) 500 mg PO BID [facility] Last Admin: 06/09/17 10:07 Dose: 500 mg Diltiazem HCl (Cardizem Cd) 120 mg PO DAILY [facility] Last Admin: 06/09/17 10:37 Dose: 120 mg Ergocalciferol (Drisdol 50,000 Intl Units Cap) 1 cap PO Q7D [facility] Stop: 07/20/17 06:15 Last Admin: 06/08/17 06:00 Dose: Not Given Fluconazole (Diflucan) 100 mg PO DAILY [facility] Last Admin: 06/09/17 10:07 Dose: 100 mg Furosemide (Lasix) 20 mg PO BID [facility] Tigecycline 50 mg/ Dextrose 100 mls @ 100 mls/hr IVPB Q12H [facility] Last Admin: 06/09/17 07:27 Dose: Not Given Fluconazole (Diflucan Iv 100 Mg/50 Ml Ns) 50 mls @ 50 mls/hr IVPB DAILY [facility] Last Admin: 06/09/17 10:08 Dose: 50 mls/hr Insulin Aspart (Novolog) 0 unit SC ACHS [facility] PRN Reason: Protocol Last Admin: 06/09/17 07:57 Dose: Not Given Insulin Aspart (Novolog) 3 unit SC AC [facility] Last Admin: 06/09/17 07:57 Dose: Not Given Insulin Glargine (Lantus) 20 unit SC HS [facility] Last Admin: 06/08/17 22:41 Dose: 20 units Labetalol HCl (Trandate) 100 mg PO BID [facility] Last Admin: 06/09/17 10:07 Dose: 100 mg Pantoprazole Sodium (Protonix Ec Tab) 40 mg PO DAILY [facility] Last Admin: 06/09/17 10:07 Dose: 40 mg Saccharomyces Boulardii (Florastor) 250 mg PO DAILY [facility] Last Admin: 06/09/17 10:39 Dose: Not Given - Labs Labs: 06/09/17 08:26 06/09/17 11:23 PT 16.6 SECONDS (9.7-12.2) H 06/05/17 07:23 INR 1.4 06/05/17 07:23 APTT 31 SECONDS (21-34) 05/25/17 07:51 - Constitutional Appears: Non-toxic, No Acute Distress, Chronically Ill - Head Exam Head Exam: ATRAUMATIC, NORMAL INSPECTION - Eye Exam Eye Exam: EOMI, Normal appearance - Neck Exam Neck Exam: Full ROM, Normal Inspection - Respiratory Exam Respiratory Exam: NORMAL BREATHING PATTERN - Cardiovascular Exam Cardiovascular Exam: Tachycardia, +S1, +S2 - GI/Abdominal Exam GI & Abdominal Exam: Soft. absent: Distended, Firm, Guarding, Rigid, Tenderness Additional comments: ostomy patent, no blood in ostomy bag - Extremities Exam Extremities Exam: Normal Inspection - Neurological Exam Neurological Exam: absent: Alert - Skin Skin Exam: Dry, Intact, Normal Color, Warm Assessment and Plan - Assessment and Plan (Free Text) Assessment: 86F s/p exploratory laparotomy w/diverting colostomy & liver biopsy POD#15 Plan: Hgb 6.4 -->12.3 Cont monitor VS PICC placed Encourage IS use PT Monitor for signs of bleeding DW Dr. Hilary Azevedo PGY2
[2017-06-09] MEDS ORDERED: Potassium Chloride 20 mEq ER Tab PO ONE (14:15)
[2017-06-09] MEDS ORDERED: Magnesium Sulfate 1 gm in D5W 1 GM/100 ML BAG IVPB ONE (15:00)
[2017-06-09 18:21] LABS: INR 1.4; PROTHROMBIN TIME 15.7 SECONDS (9.7-12.2)
[2017-06-09] MEDS ORDERED: Phytonadione 10 mg/ml Inj (Adult) SC STA ×2 (18:57→21:02)
--- NOTE | 2017-06-09 21:42 | CP.PCM.PN ---
Subjective - Date & Time of Evaluation Date of Evaluation: 06/09/17 Time of Evaluation: 21:35 - Subjective Subjective: As Per Dr Richard's verbal orders: CBC, PT, PTT, @ 10PM Type and Cross 2 units pRBC and 2 units FFP on hold for OR tomorrow Instructed to give more Vit K but Pt received Vit K at 6PM will hold off on additional dosing considering INR is normal. Pt for OR tomorrow Orders entered, confirmed with nursing staff. Primary team informed. Objective - Vital Signs/Intake and Output Vital Signs (last 24 hours): Temp Pulse Resp BP Pulse Ox 98.0 F 79 20 129/79 96 06/09/17 16:46 06/09/17 16:46 06/09/17 16:46 06/09/17 17:20 06/09/17 16:46 Intake and Output: 06/09/17 06/10/17 18:59 06:59 Intake Total 530 Output Total 2875 Balance -2345 - Medications Medications: Current Medications Acetaminophen (Tylenol 650mg/20.3ml Solution Ud) 650 mg PO Q4H PRN PRN Reason: Pain, moderate (4-7) Albuterol/Ipratropium (Duoneb 3 Mg/0.5 Mg (3 Ml) Ud) 3 ml INH RQ4 [facility] Last Admin: 06/09/17 19:53 Dose: 3 ml Calcium Carbonate (Oscal) 500 mg PO BID [facility] Last Admin: 06/09/17 17:20 Dose: 500 mg Diltiazem HCl (Cardizem Cd) 120 mg PO DAILY [facility] Last Admin: 06/09/17 10:37 Dose: 120 mg Ergocalciferol (Drisdol 50,000 Intl Units Cap) 1 cap PO Q7D [facility] Stop: 07/20/17 06:15 Last Admin: 06/08/17 06:00 Dose: Not Given Fluconazole (Diflucan) 100 mg PO DAILY [facility] Last Admin: 06/09/17 10:07 Dose: 100 mg Furosemide (Lasix) 20 mg PO BID [facility] Last Admin: 06/09/17 17:20 Dose: 20 mg Tigecycline 50 mg/ Dextrose 100 mls @ 100 mls/hr IVPB Q12H [facility] Last Admin: 06/09/17 18:29 Dose: 100 mls/hr Fluconazole (Diflucan Iv 100 Mg/50 Ml Ns) 50 mls @ 50 mls/hr IVPB DAILY [facility] Last Admin: 06/09/17 10:08 Dose: 50 mls/hr Insulin Aspart (Novolog) 0 unit SC ACHS [facility] PRN Reason: Protocol Last Admin: 06/09/17 16:45 Dose: Not Given Insulin Aspart (Novolog) 3 unit SC AC [facility] Last Admin: 06/09/17 17:21 Dose: 3 unit Insulin Glargine (Lantus) 20 unit SC HS [facility] Last Admin: 06/08/17 22:41 Dose: 20 units Labetalol HCl (Trandate) 100 mg PO BID [facility] Last Admin: 06/09/17 17:20 Dose: 100 mg Pantoprazole Sodium (Protonix Ec Tab) 40 mg PO DAILY [facility] Last Admin: 06/09/17 10:07 Dose: 40 mg Saccharomyces Boulardii (Florastor) 250 mg PO DAILY [facility] Last Admin: 06/09/17 10:39 Dose: Not Given - Labs Labs: 06/09/17 08:26 06/09/17 11:23 PT 15.7 SECONDS (9.7-12.2) H 06/09/17 18:11 INR 1.4 06/09/17 18:11 APTT 33 SECONDS (21-34) 06/09/17 18:11
--- NOTE | 2017-06-09 22:23 | CP.PCM.PN ---
Subjective - Date & Time of Evaluation Date of Evaluation: 06/09/17 Time of Evaluation: 12:30 - Subjective Subjective: No complaints. Objective - Vital Signs/Intake and Output Vital Signs (last 24 hours): Temp Pulse Resp BP Pulse Ox 98.0 F 79 20 129/79 96 06/09/17 16:46 06/09/17 16:46 06/09/17 16:46 06/09/17 17:20 06/09/17 16:46 Intake and Output: 06/09/17 06/10/17 18:59 06:59 Intake Total 530 Output Total 2875 1200 Balance -2345 -1200 - Medications Medications: Current Medications Acetaminophen (Tylenol 650mg/20.3ml Solution Ud) 650 mg PO Q4H PRN PRN Reason: Pain, moderate (4-7) Albuterol/Ipratropium (Duoneb 3 Mg/0.5 Mg (3 Ml) Ud) 3 ml INH RQ4 [facility] Last Admin: 06/09/17 19:53 Dose: 3 ml Calcium Carbonate (Oscal) 500 mg PO BID [facility] Last Admin: 06/09/17 17:20 Dose: 500 mg Diltiazem HCl (Cardizem Cd) 120 mg PO DAILY [facility] Last Admin: 06/09/17 10:37 Dose: 120 mg Ergocalciferol (Drisdol 50,000 Intl Units Cap) 1 cap PO Q7D [facility] Stop: 07/20/17 06:15 Last Admin: 06/08/17 06:00 Dose: Not Given Fluconazole (Diflucan) 100 mg PO DAILY [facility] Last Admin: 06/09/17 10:07 Dose: 100 mg Furosemide (Lasix) 20 mg PO BID [facility] Last Admin: 06/09/17 17:20 Dose: 20 mg Tigecycline 50 mg/ Dextrose 100 mls @ 100 mls/hr IVPB Q12H [facility] Last Admin: 06/09/17 18:29 Dose: 100 mls/hr Fluconazole (Diflucan Iv 100 Mg/50 Ml Ns) 50 mls @ 50 mls/hr IVPB DAILY [facility] Last Admin: 06/09/17 10:08 Dose: 50 mls/hr Insulin Aspart (Novolog) 0 unit SC ACHS [facility] PRN Reason: Protocol Last Admin: 06/09/17 16:45 Dose: Not Given Insulin Aspart (Novolog) 3 unit SC AC [facility] Last Admin: 06/09/17 17:21 Dose: 3 unit Insulin Glargine (Lantus) 20 unit SC HS [facility] Last Admin: 06/08/17 22:41 Dose: 20 units Labetalol HCl (Trandate) 100 mg PO BID [facility] Last Admin: 06/09/17 17:20 Dose: 100 mg Pantoprazole Sodium (Protonix Ec Tab) 40 mg PO DAILY [facility] Last Admin: 06/09/17 10:07 Dose: 40 mg Saccharomyces Boulardii (Florastor) 250 mg PO DAILY [facility] Last Admin: 06/09/17 10:39 Dose: Not Given - Labs Labs: 06/09/17 08:26 06/09/17 11:23 PT 15.7 SECONDS (9.7-12.2) H 06/09/17 18:11 INR 1.4 06/09/17 18:11 APTT 33 SECONDS (21-34) 06/09/17 18:11 - Head Exam Head Exam: ATRAUMATIC - Eye Exam Eye Exam: Normal appearance - ENT Exam ENT Exam: Mucous Membranes Dry - Respiratory Exam Respiratory Exam: NORMAL BREATHING PATTERN - Cardiovascular Exam Cardiovascular Exam: +S1, +S2 - GI/Abdominal Exam GI & Abdominal Exam: Normal Bowel Sounds - Extremities Exam Extremities Exam: Pedal Edema Assessment and Plan (1) Colon adenocarcinoma Assessment & Plan: stage IV KRAS added outpatient treatment Status: Acute (2) Anemia Status: Acute (3) Coagulopathy Status: Acute
[2017-06-09] MEDS: (Lantus) Insulin Glargine, Recombinant SC SCH (22:31)
[2017-06-09 22:47] LABS: BASO # 0.1 K/uL (0.0-0.2); BASO % 0.8 % (0.0-2.0); EOS # 0.1 K/uL (0.0-0.7); EOS % 0.5 % (0.0-4.0); HEMOGLOBIN 11.9 g/dL (11.0-16.0); LYMPH # 1.3 K/uL (1.0-4.3); LYMPH % 11.4 % (20.0-40.0); MEAN CELL VOLUME 86.8 fL (81.0-99.0); MEAN CORPUSCULAR HEMOGLOBIN 29.9 pg (27.0-31.0); MEAN CORPUSCULAR HGB CONC 34.4 g/dL (33.0-37.0); MEAN PLATELET VOLUME 8.3 fL (7.2-11.7); MONO # 0.8 K/uL (0.0-0.8); MONO % 6.8 % (0.0-10.0); NEUT # 9.2 K/uL (1.8-7.0); NEUT % 80.5 % (50.0-75.0); RBC 3.97 Mil/uL (3.80-5.20); RED CELL DISTRIBUTION WIDTH 17.7 % (11.5-14.5); WHITE BLOOD COUNT 11.4 K/uL (4.8-10.8)
[2017-06-09 23:02] LABS: INR 1.4; PROTHROMBIN TIME 15.4 SECONDS (9.7-12.2)
--- NOTE | 2017-06-09 23:24 | CP.PCM.PN ---
Subjective - Date & Time of Evaluation Date of Evaluation: 06/09/17 Time of Evaluation: 11:30 - Subjective Subjective: Patient with decreased appetite today; s/p prbc transfusion yesterday; denies shortness of breath; Objective - Vital Signs/Intake and Output Vital Signs (last 24 hours): Temp Pulse Resp BP Pulse Ox 98.0 F 79 20 129/79 96 06/09/17 16:46 06/09/17 16:46 06/09/17 16:46 06/09/17 17:20 06/09/17 16:46 Intake and Output: 06/09/17 06/10/17 18:59 06:59 Intake Total 530 180 Output Total 2875 3580 Balance -2345 -2200 - Medications Medications: Current Medications Acetaminophen (Tylenol 650mg/20.3ml Solution Ud) 650 mg PO Q4H PRN PRN Reason: Pain, moderate (4-7) Albuterol/Ipratropium (Duoneb 3 Mg/0.5 Mg (3 Ml) Ud) 3 ml INH RQ4 [facility] Last Admin: 06/09/17 19:53 Dose: 3 ml Calcium Carbonate (Oscal) 500 mg PO BID [facility] Last Admin: 06/09/17 17:20 Dose: 500 mg Diltiazem HCl (Cardizem Cd) 120 mg PO DAILY [facility] Last Admin: 06/09/17 10:37 Dose: 120 mg Ergocalciferol (Drisdol 50,000 Intl Units Cap) 1 cap PO Q7D [facility] Stop: 07/20/17 06:15 Last Admin: 06/08/17 06:00 Dose: Not Given Fluconazole (Diflucan) 100 mg PO DAILY [facility] Last Admin: 06/09/17 10:07 Dose: 100 mg Furosemide (Lasix) 20 mg PO BID [facility] Last Admin: 06/09/17 17:20 Dose: 20 mg Tigecycline 50 mg/ Dextrose 100 mls @ 100 mls/hr IVPB Q12H [facility] Last Admin: 06/09/17 18:29 Dose: 100 mls/hr Fluconazole (Diflucan Iv 100 Mg/50 Ml Ns) 50 mls @ 50 mls/hr IVPB DAILY [facility] Last Admin: 06/09/17 10:08 Dose: 50 mls/hr Insulin Aspart (Novolog) 0 unit SC ACHS [facility] PRN Reason: Protocol Last Admin: 06/09/17 22:32 Dose: Not Given Insulin Aspart (Novolog) 3 unit SC AC [facility] Last Admin: 06/09/17 17:21 Dose: 3 unit Insulin Glargine (Lantus) 20 unit SC HS [facility] Last Admin: 06/09/17 22:31 Dose: Not Given Labetalol HCl (Trandate) 100 mg PO BID [facility] Last Admin: 06/09/17 17:20 Dose: 100 mg Pantoprazole Sodium (Protonix Ec Tab) 40 mg PO DAILY [facility] Last Admin: 06/09/17 10:07 Dose: 40 mg Saccharomyces Boulardii (Florastor) 250 mg PO DAILY [facility] Last Admin: 06/09/17 10:39 Dose: Not Given - Labs Labs: 06/09/17 22:43 06/09/17 11:23 PT 15.4 SECONDS (9.7-12.2) H 06/09/17 22:43 INR 1.4 06/09/17 22:43 APTT 33 SECONDS (21-34) 06/09/17 22:43 - Constitutional Appears: Non-toxic, No Acute Distress - Eye Exam Eye Exam: absent: Scleral icterus - ENT Exam ENT Exam: Mucous Membranes Moist - Respiratory Exam Respiratory Exam: Clear to Ausculation Bilateral. absent: Respiratory Distress - Cardiovascular Exam Cardiovascular Exam: RRR, +S1, +S2 - GI/Abdominal Exam GI & Abdominal Exam: Soft. absent: Distended - Extremities Exam Additional comments: much improved leg and arm edema; - Neurological Exam Neurological Exam: Alert, Awake - Psychiatric Exam Psychiatric exam: absent: Agitated - Skin Skin Exam: Warm. absent: Cyanosis Assessment and Plan (1) Hyponatremia Assessment & Plan: Much improved after single dose of tolvaptan yesterday; will continue to have stimulus for hyponatremia (possibly due to liver dysfunction and/or SIADH) so should restrict PO fluids to <1L daily; standing lasix will help, being increased to 20 mg bid for now; Status: Acute (2) Hypokalemia Assessment & Plan: Given IV KCl and 1 g IV mag today; continue to monitor; do not give Mag faster than 1g/hr to avoid renal wasting; Status: Acute (3) Hypertension Assessment & Plan: BP controlled, continue labetalol and cardizem; Status: Acute (4) Proteinuria Status: Acute (5) Hypocalcemia Status: Acute (6) Edema Assessment & Plan: Improved with diuresis from both lasix and tolvaptan; increasing lasix to 20 mg bid for now; Status: Acute
[2017-06-10] MEDS: Albuterol-Ipratrop 3 mg / 0.5 (3 ml) UD INH SCH ×4 (01:04→11:23)
[2017-06-10] MEDS: Tigecycline 50 MG in Dextrose 5% In Water 100 ML IVPB SCH (06:41)
[2017-06-10 07:30] LABS: HEMOGLOBIN 12.3 g/dL (11.0-16.0); MEAN CELL VOLUME 86.5 fL (81.0-99.0); MEAN CORPUSCULAR HEMOGLOBIN 30.6 pg (27.0-31.0); MEAN CORPUSCULAR HGB CONC 35.4 g/dL (33.0-37.0); MEAN PLATELET VOLUME 8.6 fL (7.2-11.7); RBC 4.03 Mil/uL (3.80-5.20); RED CELL DISTRIBUTION WIDTH 18.2 % (11.5-14.5); WHITE BLOOD COUNT 10.8 K/uL (4.8-10.8)
[2017-06-10 07:31] LABS: BASO # 0.1 K/uL (0.0-0.2); BASO % 0.6 % (0.0-2.0); EOS % 0.2 % (0.0-4.0); HEMOGLOBIN 12.2 g/dL (11.0-16.0); LYMPH # 1.2 K/uL (1.0-4.3); LYMPH % 10.5 % (20.0-40.0); MEAN CELL VOLUME 87.3 fL (81.0-99.0); MEAN CORPUSCULAR HEMOGLOBIN 29.6 pg (27.0-31.0); MEAN CORPUSCULAR HGB CONC 33.9 g/dL (33.0-37.0); MEAN PLATELET VOLUME 8.5 fL (7.2-11.7); MONO # 0.6 K/uL (0.0-0.8); MONO % 5.3 % (0.0-10.0); NEUT # 9.3 K/uL (1.8-7.0); NEUT % 83.4 % (50.0-75.0); RBC 4.12 Mil/uL (3.80-5.20); WHITE BLOOD COUNT 11.1 K/uL (4.8-10.8)
[2017-06-10] MEDS: (Novolog) Insulin Aspart, Recombinant 100 u/ml 10 ml vial SC SCH ×7 (07:45→22:01)
[2017-06-10 07:55] LABS: INR 1.3; PROTHROMBIN TIME 15.2 SECONDS (9.7-12.2)
[2017-06-10 08:16] LABS: BLOOD UREA NITROGEN 18 mg/dL (7-17); GFR AFRICAN-AMERICAN > 60; GFR NON-AFRICAN AMERICAN > 60
[2017-06-10 08:17] LABS: ALB/GLOB RATIO 0.8 (1.0-2.1); ALBUMIN 2.3 g/dL (3.5-5.0); CALCIUM 7.9 mg/dl (8.6-10.4); MAGNESIUM 1.6 mg/dL (1.6-2.3)
[2017-06-10 08:18] LABS: ALT/SGPT 22 U/L (9-52); AST/SGOT 37 U/L (14-36)
[2017-06-10] MEDS: Saccharomyces Boulardi 250 mg Cap PO SCH (09:59)
[2017-06-10] MEDS: diltiaZEM 120 mg/24 Hours CD Cap PO SCH (10:00)
[2017-06-10] MEDS: Fluconazole IV 100mg/50 ml NS 50 ML IVPB SCH (10:00)
[2017-06-10] MEDS ORDERED: Potassium Chloride 20 mEq ER Tab PO ONE ×2 (10:00→14:22)
[2017-06-10] MEDS: Pantoprazole 40 mg EC Tab PO SCH (10:00)
[2017-06-10] MEDS ORDERED: Etomidate 20 mg/10ml Inj IV ONE (11:24)
[2017-06-10] MEDS ORDERED: Phenylephrine 10 mg/ml Inj ONE (12:00)
--- NOTE | 2017-06-10 12:40 | PCM.SURG1 ---
Surgeon's Initial Post Op Note - Surgeon's Notes Surgeon: Dr. Richard [employer] Technician: Dr. Azevedo Type of Anesthesia: General Endo Pre-Operative Diagnosis: Necrotic Stoma Operative Findings: See operative Dictation Post-Operative Diagnosis: Necrotic Stoma Operation Performed: Stoma Revision Specimen/Specimens Removed: Necrotic Stomal tissue Estimated Blood Loss: EBL {In ML}: 10 Blood Products Given: N/A Drains Used: No Drains Post-Op Condition: Good Date of Surgery/Procedure: 06/10/17 Time of Surgery/Procedure: 12:40
[2017-06-10] MEDS ORDERED: HYDROmorphone 0.5 mg/0.5 ml ISec IVP PRN (13:23)
--- NOTE | 2017-06-10 13:32 | PN ---
DATE: LOCATION: [facility], bed A. SUBJECTIVE: This is an 86-year-old female, still in a status of DNR and DNI, seen and examined in rounds early today without significant clinical changes with no reported active bleeding with subsequent drop of oral intake and loss of appetite recently. The patient is still with low hemoglobin and hematocrit, for which blood transfusion was given recently. Denies any chest pain; significant complaint of palpitation, shortness of breath, chills or fever, but generalized weakness. The entire chart is reviewed including but not limited to the most recent lab and radiology study results, current and the previous medication list, current and the previous medical events and today's labs showed white blood cells normal at 3.8 with normal hemoglobin and hematocrit as well and normal platelet count, but mildly elevated at with low potassium 3.0, CO2 content elevated at 33 indicative of respiratory alkalosis with increased BUN 18 creatinine. Blood glucose a little elevated at 172 with low calcium 7.9 and increased AST to 37, alkaline phosphatase to 80 with low total protein 5.1 and low albumin 2.3. PHYSICAL EXAMINATION: GENERAL: An 86-year-old female. VITAL SIGNS: Afebrile with pulse of 82, respiratory rate 20 to 22, blood pressure 136/64. HEENT: Showed mildly dry pale oral mucoid membrane. Nonicteric sclerae. LUNGS: Few scattered crepitation. Decreased air entry at bases. HEART: Positive S1 and S2. ABDOMEN: Soft. Bowel sounds are present. Colostomy tube is in place without any reported bleeding. No mass or organomegaly. Clean dressing noticed. EXTREMITIES: Lower extremities with edematous changes. No clubbing or cyanosis. NEUROLOGIC: No reported new neurological deficits, sensory or motor. IMPRESSION: 1. 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 2. Status post exploratory laparotomy with diverting colostomy. 3. Peptic ulcer disease. 4. Known history of pleural effusion, pneumonia by recent history. 5. Re-exacerbation of peptic ulcer disease. 6. Known history of diabetes mellitus, hyperlipidemia. 7. Anemia secondary to above. 8. Malnutrition with hypoalbuminemia. SUGGESTIONS: 1. Continue supportive treatment. 2. The patient will need peripheral hyperalimentation. 3. Further recommendations to follow. Sp Leblanc MD
--- NOTE | 2017-06-10 15:14 | CP.PCM.PN ---
<YesiIreland - Last Filed: 06/10/17 18:57> Subjective - Date & Time of Evaluation Date of Evaluation: 06/10/17 Time of Evaluation: 08:14 - Subjective Subjective: Medicine Progress Note: Patient was seen and examined at bedside in the AM. Patient states she is feeling better today. Patient states she has been eating well and her swelling has decreased slightly. Patient denies fever, nausea or vomiting, chest pain, lightheadedness, dizziness, changes in vision, or any other complaints. Objective - Vital Signs/Intake and Output Vital Signs (last 24 hours): Temp Pulse Resp BP Pulse Ox 97 F L 82 14 141/75 95 06/10/17 13:15 06/10/17 13:15 06/10/17 13:15 06/10/17 13:15 06/10/17 13:15 Intake and Output: 06/10/17 06/10/17 06:59 18:59 Intake Total 180 800 Output Total 3470 182 Balance -3290 618 - Medications Medications: Current Medications Acetaminophen (Tylenol 650mg/20.3ml Solution Ud) 650 mg PO Q4H PRN PRN Reason: Pain, moderate (4-7) Albuterol/Ipratropium (Duoneb 3 Mg/0.5 Mg (3 Ml) Ud) 3 ml INH RQ4 COUNTS INCLUDE 234 BEDS AT [facility] Last Admin: 06/10/17 11:23 Dose: Not Given Calcium Carbonate (Oscal) 500 mg PO BID COUNTS INCLUDE 234 BEDS AT [facility] Last Admin: 06/10/17 09:59 Dose: 500 mg Diltiazem HCl (Cardizem Cd) 120 mg PO DAILY COUNTS INCLUDE 234 BEDS AT [facility] Last Admin: 06/10/17 10:00 Dose: 120 mg Ergocalciferol (Drisdol 50,000 Intl Units Cap) 1 cap PO Q7D COUNTS INCLUDE 234 BEDS AT [facility] Stop: 07/20/17 06:15 Last Admin: 06/08/17 06:00 Dose: Not Given Fluconazole (Diflucan) 100 mg PO DAILY COUNTS INCLUDE 234 BEDS AT [facility] Last Admin: 06/10/17 09:59 Dose: 100 mg Furosemide (Lasix) 20 mg PO BID COUNTS INCLUDE 234 BEDS AT [facility] Last Admin: 06/09/17 17:20 Dose: 20 mg Hydromorphone HCl (Dilaudid) 1 mg IVP Q4H PRN PRN Reason: Pain, moderate (4-7) Hydromorphone HCl (Dilaudid) 0.5 mg IVP Q10M PRN PRN Reason: Pain, moderate (4-7) Stop: 06/10/17 15:23 Fluconazole (Diflucan Iv 100 Mg/50 Ml Ns) 50 mls @ 50 mls/hr IVPB DAILY COUNTS INCLUDE 234 BEDS AT [facility] Last Admin: 06/10/17 10:00 Dose: 50 mls/hr Tigecycline 50 mg/ Sodium (Chloride) 100 mls @ 100 mls/hr IVPB Q12H COUNTS INCLUDE 234 BEDS AT [facility] Insulin Aspart (Novolog) 0 unit SC ACHS [facility] PRN Reason: Protocol Last Admin: 06/10/17 11:47 Dose: Not Given Insulin Aspart (Novolog) 3 unit SC AC COUNTS INCLUDE 234 BEDS AT [facility] Last Admin: 06/10/17 11:47 Dose: Not Given Insulin Glargine (Lantus) 20 unit SC HS COUNTS INCLUDE 234 BEDS AT [facility] Last Admin: 06/09/17 22:31 Dose: Not Given Labetalol HCl (Trandate) 100 mg PO BID COUNTS INCLUDE 234 BEDS AT [facility] Last Admin: 06/10/17 10:00 Dose: 100 mg Pantoprazole Sodium (Protonix Ec Tab) 40 mg PO DAILY COUNTS INCLUDE 234 BEDS AT [facility] Last Admin: 06/10/17 10:00 Dose: 40 mg Saccharomyces Boulardii (Florastor) 250 mg PO DAILY COUNTS INCLUDE 234 BEDS AT [facility] Last Admin: 06/10/17 09:59 Dose: 250 mg - Labs Labs: 06/10/17 07:07 06/10/17 07:07 PT 15.2 SECONDS (9.7-12.2) H 06/10/17 07:39 INR 1.3 06/10/17 07:39 APTT 33 SECONDS (21-34) 06/10/17 07:39 Assessment and Plan - Assessment and Plan (Free Text) Plan: 1). Sigmoid colon mass/Liver lesion likely mets/Weight loss and abdominal pain * CT-Abd/Pelvis on admission showed 8.6 cm sigmoid mass with extensive hepatic metastasis. Bilateral renal cysts with large right upper pole renal cyst. Small bilateral pleural effusion and small pericardial effusion. Small hiatal hernia. Possible small diverticulum of the herniated stomach * Repeat Abd/Pel CT (05/30): no ureteral injury; bulk tumor in pelvis and hepatic mets disease; increasing pleural effusion in consolidative changes at the lung base; stable pericardial effusion; severe post-op anasarca. * CEA elevated @ 11.6. (Normal = 0-3.0) * Colonscopy (05/22/17): Non-bleeding external and internal hemorrhoids. 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 At the level of the distal sigmoid colon, contrast slowly traversed through a very thin and irregular channel to the level of the mid sigmoid at the site of the known sigmoid carcinoma. Contrast did not flow freely past this level. Exam was subsequently terminated. These findings were concerning for a near complete obstruction of the bowel lumen from the adjacent obstructing tumor. * Clear ensure ordered and Clear liquid diet started. * Venous dopplers UE&LE b/l ordered due to edema and cancer: f/u results * Calorie count and monitoring Consults * GI consult Dr Foster ,appreciated * recommends peripheral hyperalimentation * Started PPN on 06/01/17 with electrolytes - PPN stopped 06/02 due to elevated glucose - Dietary Consult --> help appreciated * Dr Bright oncology consult - Recs appreciated * suggests consulting IR for FNA biopsy of liver lesions to obtain diagnosis * Surgery consult Dr Richard-appreciated * 05/25/17: Patient underwent laparotomy with diverting colostomy and liver biopsy. She was found to have the colonic mass invading the bladder and therefore was not entirely resectable * Liver Biopsy: necrotic tissue * NGT removed on 05/29/17 * Discontinued naqvi 05/31 * Patient scheduled for osteomy revision on 06/06/17 was canceled per surgery due to hyponatremia * Stoma revision completed today. 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 Sepsis * leukocytosis, bandemia * procalcitonin trending down: 4.15 --> 1.82--> 0.78 * Blood cx (05/28): no growth; urine cx: no growth * Peritoneal fluid stain: negative * Repeat blood cultures (05/29/17): negative * UA: 1+ protein, 1+ blood, 1+ LE, WBC29, RBC32, Occ bacteria * ID consulted: Dr. Maravilal --> help appreciated * Meropenem 1gm IV Q12 discontinued * Vanco 750mg IV Q24 discontinued * Discontinued Flagyl 500mg IV Q8h (started 05/30/17) * CXR (06/01): moderate left, small right pleural effusion; moderate venous congestions; confluent opacities in left mid to lower and right mid to lower lung; cardiomegaly * Urine Culture: Yeast species * Fluconazole 100mg po daily started 06/08 * DARRYL drain cx: VRE + * Tigecycline 100 mg IV x 1 dose 06/08/17 then 50 mg IV Q12H starting 06/09/17 3). DM 2 * Aspart ISS Q6H Low Dose * Accuchecks -moderate * Lantus 20 units HS (increased from 10 units on 06/03) * Novolog 3 units SCqAC * A1c: 8.4 4).Hypertension * Labetolol 100mg Q12H, Enalapril 15 mg Daily, and Cardizem [id number] Daily 5). Acute Anemia - Type and Screen - 2 units of PRBC to be given 06/08/17 - Tylenol 650mg to be given 30 minutes before each blood transfusion - Benadryl 25mg to be given 30 minutes before each blood transfusion - Lasix 10mg to be given 30 minutes before each blood transfusion - s/p transfusion of 2 units hemaglobin 12.3 * Continue to monitor 6). Pericardial effusion/cardiomegaly * Cardiology Consulted (Dr. Portillo) - help appreciated * as per Dr. Portillo, continue medical therapy; effusion is small; LV function is normal * ECHO (05/20/17): Diastolic Dysfunction Grade I-abnormal relaxation pattern, Trace TR and MR 7). Bilateral Renal Cysts * U/S Renal 05/26/17: Right Upper Pole renal cyst measures approximately 10.4x8.3x9.2 cm. Left upper pole renal cyst measures 2.2x1.4x1.6 cm * Will need follow up U/S in 6 months 8). Respiratory Acidosis * Patient was extubated on 05/26/17 and placed on BiPap and Bicarb Drip * Patient no longer on BiPap or bicarb drip 9). Pleural Effusion * CXR (06/01): moderate left, small right pleural effusion; moderate venous congestions; confluent opacities in left mid to lower and right mid to lower lung; cardiomegaly * Chest CT: moderate b/l pleural effusion with b/l lower lobe segmental/ subsegmental atelectasis; cardiomegaly with small pericardial effusion; probably widespread hepatic metastasis. * Continue Duonebs Q4 * Pulmonology consulted, Dr. Cherry, help appreciated * IR consulted for therapeutic thoracentesis for pleural effusions; as per IR, US showed small pleural effusions not amenable to thoracentisis. 10.) Hypervolemic Hyponatremia - likely secondary to SIADH - Nephrology Consult: Dr. Lennon --> help appreciated - Urine sodium 43 - Urine Osmolality 563 - 1.5L of fluid restriction - Lasix 20mg Po daily - Tolvaptan 15mg po x1 dose 06/08/17 11.) Hypocalcemia /Hypokalemia - Repleted. Will monitor with serial CMP's. 12.) IV Access - Consent was done with POA 13.). DVT and GI prophylaxis * Heparin 5000sc Q8- HOLD * Dilaudid 0.5 mg IV Q4H PRN Severe Pain * Protonix 40 mg IV Q12H * PT/OT * Incentive spirometry * Palliative care: patient is DNR/DNI as of 05/29/17. Polst form completed. * Diet: Diabetic diet Son Dominick Mckoy ([phone]) Nializa Prabhakar ([phone]) as POA/Health Care Proxy Disposition: Patient accepted to [facility]. <Arya Remy - Last Filed: 06/10/17 21:16> Objective - Vital Signs/Intake and Output Vital Signs (last 24 hours): Temp Pulse Resp BP Pulse Ox 97.5 F L 82 18 124/69 97 06/10/17 16:00 06/10/17 16:00 06/10/17 16:00 06/10/17 16:00 06/10/17 16:00 Intake and Output: 06/10/17 06/11/17 18:59 06:59 Intake Total 900 Output Total 1062 Balance -162 - Medications Medications: Current Medications Acetaminophen (Tylenol 650mg/20.3ml Solution Ud) 650 mg PO Q4H PRN PRN Reason: Pain, moderate (4-7) Calcium Carbonate (Oscal) 500 mg PO BID COUNTS INCLUDE 234 BEDS AT [facility] Last Admin: 06/10/17 18:44 Dose: 500 mg Diltiazem HCl (Cardizem Cd) 120 mg PO DAILY COUNTS INCLUDE 234 BEDS AT [facility] Last Admin: 06/10/17 10:00 Dose: 120 mg Ergocalciferol (Drisdol 50,000 Intl Units Cap) 1 cap PO Q7D COUNTS INCLUDE 234 BEDS AT [facility] Stop: 07/20/17 06:15 Last Admin: 06/08/17 06:00 Dose: Not Given Fluconazole (Diflucan) 100 mg PO DAILY COUNTS INCLUDE 234 BEDS AT [facility] Last Admin: 06/10/17 09:59 Dose: 100 mg Furosemide (Lasix) 20 mg PO BID COUNTS INCLUDE 234 BEDS AT [facility] Last Admin: 06/09/17 17:20 Dose: 20 mg Hydromorphone HCl (Dilaudid) 1 mg IVP Q4H PRN PRN Reason: Pain, moderate (4-7) Fluconazole (Diflucan Iv 100 Mg/50 Ml Ns) 50 mls @ 50 mls/hr IVPB DAILY COUNTS INCLUDE 234 BEDS AT [facility] Last Admin: 06/10/17 10:00 Dose: 50 mls/hr Tigecycline 50 mg/ Sodium (Chloride) 100 mls @ 100 mls/hr IVPB Q12H COUNTS INCLUDE 234 BEDS AT [facility] Last Admin: 06/10/17 19:12 Dose: 100 mls/hr Insulin Aspart (Novolog) 0 unit SC ACHS COUNTS INCLUDE 234 BEDS AT [facility] PRN Reason: Protocol Last Admin: 06/10/17 18:44 Dose: 2 unit Insulin Aspart (Novolog) 3 unit SC AC COUNTS INCLUDE 234 BEDS AT [facility] Last Admin: 06/10/17 18:45 Dose: 3 unit Insulin Glargine (Lantus) 20 unit SC HS COUNTS INCLUDE 234 BEDS AT [facility] Last Admin: 06/09/17 22:31 Dose: Not Given Labetalol HCl (Trandate) 100 mg PO BID COUNTS INCLUDE 234 BEDS AT [facility] Last Admin: 06/10/17 18:43 Dose: 100 mg Pantoprazole Sodium (Protonix Ec Tab) 40 mg PO DAILY COUNTS INCLUDE 234 BEDS AT [facility] Last Admin: 06/10/17 10:00 Dose: 40 mg Saccharomyces Boulardii (Florastor) 250 mg PO DAILY COUNTS INCLUDE 234 BEDS AT [facility] Last Admin: 06/10/17 09:59 Dose: 250 mg - Labs Labs: 06/10/17 07:07 06/10/17 07:07 PT 15.2 SECONDS (9.7-12.2) H 06/10/17 07:39 INR 1.3 06/10/17 07:39 APTT 33 SECONDS (21-34) 06/10/17 07:39 Attending/Attestation - Attestation I have personally seen and examined this patient.: Yes I have fully participated in the care of the patient.: Yes I have reviewed all pertinent clinical information, including history, physical exam and plan: Yes Notes (Text): 06/10/17 21:03 Patient was seen and examined at 4:30 PM 06/10/17. Exam, assessment and plan were gone over with the resident. Also on ROS NOT experiencing any pain States that she is very hungry NO other complaints upon FULL ROS Also on Exam: GI: Central surgical site with edel with NO dehiscence/cellulitis noted, Colostomy bag in Left mid quadrant with small amount of bright red blood Ext: 2+ pitting edema involving the bilateral LE from the feet to just below the knees, trace pitting edema of the bilateral arms Assessments: 1). Sigmoid Colon Mass/Liver Metastasis: Patient underwent laparotomy with diverting colostomy and liver biopsy on . She was found to have the colonic mass invading the bladder and therefore was not entirely resectable. KRAS mutation testing ordered by Heme/Onc Dr. Angella Bright and then outpatient Chemotherapy.. Revision of Colostomy by Surgery Dr. Richard performed morning 06/10/17: spoke with Dr. Richard afterwards and patient is cleared for Clear Liquid Diet 2). Hx Respiratory Acidosis 3). Sepsis Urine Culture 05/30/17 shows NO growth Urine Culture 06/04/17 showed Yeast and patient started on Fluconazole 100 mg PO 1x/day (06/08/17) Blood Culture 05/28/17 and 05/29/17 was negative at 5 days Blood Culture 06/08/17 is negative to date Peritoneal Fluid 05/30/17 showed NO growth DARRYL Drain Culture x 1 06/04/17 showed VRE: Tigecycline 100 mg IV x 1 dose 06/08/17 then 50 mg IV Q12H was started06/09/[address] Maravilla 4). Hx DM 2 Insulin was adjusted on evening 06/06/17 as Surgery was concerned about the blood glucose being in the high 200s. However due to this adjustment, patient had episode of hypoglycemia again on morning of 06/07/17. Keep regimen for now: Lantus 20 Units SC HS and Aspart 3 Units SC ACMeals due to the patient's inconsistent eating 5). Hx HTN Diltiazem CD 120 mg PO 1x/day Labetolol 100 mg PO 2x/day 6). Anemia Likely Secondary To Chronic Disease/Colon CA 2 Units of PRBC given 06/08/17 after PICC line placement: HgB/Hct are now stable 7). Pericardial Effusion/Cardiomegaly 8). Bilateral Renal Cysts 9). Leukocytosis Likely Secondary to Sepsis: see Assessment and Plan #3 Leukocytosis has now resolved 10). Hypervolemic Hyponatremia Lasix 20 mg PO 2x/day was placed on HOLD by Nephrology 06/09/17 NaCl 2 gm PO 3x/day was discontinued Tolvaptan 15 mg PO x 1 dose 06/08/17: Na has normalized Nephrology Dr. Lennon 11). Low Albumin Likely secondary to recent surgery/poor intake Albumin 12.5 gm x 4 doses finished on 06/07/17 12). Bilateral Pleural Effusion As per CT Chest 06/02/[address] John attempted Thoracentesis but too small and not amenable to thoracentesis 13). Bilateral UE and LE Edema Bilateral UE Doppler 06/03/17: Superficial Thrombosis Right Basilic Vein and NO DVT Bilateral LE Doppler 06/03/17: NO DVT 14). Hypocalcemia Calcium Gluconate 2 gm IV given 06/08/17 after PICC line placement: when corrected for low albumin, Ca now has normalized Calcium Carbonate 500 mg PO 2x/day 15). Low Vitamin D Vitamin D 50,000 Units once a week for 8 weeks starting 06/08/17 16). Hypokalemia Repleted via PO and IV 06/10/17. 17). Hypomagnesemia Resolved 18). Prophylaxis Duoneb Tylenol Heparin placed on HOLD in light of low HgB/Hct on 06/08/17 Protonix Florastor 06/07/17: two phlebotomists attempted to draw blood for CBC but not successful. Attempted to get PICC line for access however patient declined and wanted to be left alone and agreed to have placed on 06/08/17. 06/08/17: PICC Line placed. Surgery Dr. Richard holding off on revision of Colostomy for now until patient more medical stable. 06/09/17: Patient has been medically optimized for revision of Colostomy for morning 06/10/17. Surgery Team has been notified. 06/10/17: S/P revision of Colostomy. Spoke with ANAYELI Adorno who was at bedside and she was updated. 06/10/17 21:15
--- NOTE | 2017-06-10 18:13 | CP.PCM.PN ---
Subjective - Date & Time of Evaluation Date of Evaluation: 06/10/17 Time of Evaluation: 14:00 - Subjective Subjective: Patient s/p revision of ostomy stoma due to necrosis earlier today; Objective - Vital Signs/Intake and Output Vital Signs (last 24 hours): Temp Pulse Resp BP Pulse Ox 97.5 F L 82 18 124/69 97 06/10/17 16:00 06/10/17 16:00 06/10/17 16:00 06/10/17 16:00 06/10/17 16:00 Intake and Output: 06/10/17 06/10/17 06:59 18:59 Intake Total 180 900 Output Total 3470 1062 Balance -3290 -162 - Medications Medications: Current Medications Acetaminophen (Tylenol 650mg/20.3ml Solution Ud) 650 mg PO Q4H PRN PRN Reason: Pain, moderate (4-7) Calcium Carbonate (Oscal) 500 mg PO BID [facility] Last Admin: 06/10/17 09:59 Dose: 500 mg Diltiazem HCl (Cardizem Cd) 120 mg PO DAILY [facility] Last Admin: 06/10/17 10:00 Dose: 120 mg Ergocalciferol (Drisdol 50,000 Intl Units Cap) 1 cap PO Q7D [facility] Stop: 07/20/17 06:15 Last Admin: 06/08/17 06:00 Dose: Not Given Fluconazole (Diflucan) 100 mg PO DAILY [facility] Last Admin: 06/10/17 09:59 Dose: 100 mg Furosemide (Lasix) 20 mg PO BID [facility] Last Admin: 06/09/17 17:20 Dose: 20 mg Hydromorphone HCl (Dilaudid) 1 mg IVP Q4H PRN PRN Reason: Pain, moderate (4-7) Fluconazole (Diflucan Iv 100 Mg/50 Ml Ns) 50 mls @ 50 mls/hr IVPB DAILY [facility] Last Admin: 06/10/17 10:00 Dose: 50 mls/hr Tigecycline 50 mg/ Sodium (Chloride) 100 mls @ 100 mls/hr IVPB Q12H [facility] Potassium Chloride (Potassium Chloride 20 Meq/100 Ml) 20 meq in 100 mls @ 50 mls/hr IVPB ONCE ONE Stop: 06/10/17 18:40 Last Admin: 06/10/17 17:06 Dose: 50 mls/hr Insulin Aspart (Novolog) 0 unit SC ACHS [facility] PRN Reason: Protocol Last Admin: 06/10/17 11:47 Dose: Not Given Insulin Aspart (Novolog) 3 unit SC AC [facility] Last Admin: 06/10/17 11:47 Dose: Not Given Insulin Glargine (Lantus) 20 unit SC HS [facility] Last Admin: 06/09/17 22:31 Dose: Not Given Labetalol HCl (Trandate) 100 mg PO BID [facility] Last Admin: 06/10/17 10:00 Dose: 100 mg Pantoprazole Sodium (Protonix Ec Tab) 40 mg PO DAILY [facility] Last Admin: 06/10/17 10:00 Dose: 40 mg Saccharomyces Boulardii (Florastor) 250 mg PO DAILY [facility] Last Admin: 06/10/17 09:59 Dose: 250 mg - Labs Labs: 06/10/17 07:07 06/10/17 07:07 PT 15.2 SECONDS (9.7-12.2) H 06/10/17 07:39 INR 1.3 06/10/17 07:39 APTT 33 SECONDS (21-34) 06/10/17 07:39 - Constitutional Appears: Non-toxic, No Acute Distress - Respiratory Exam Respiratory Exam: Clear to Ausculation Bilateral. absent: Respiratory Distress - Cardiovascular Exam Cardiovascular Exam: RRR, +S1, +S2 - Extremities Exam Additional comments: much improved edema; - Neurological Exam Neurological Exam: Alert, Awake - Skin Skin Exam: Warm. absent: Cyanosis Assessment and Plan (1) Hyponatremia Assessment & Plan: Improved with tolvaptan and loop diuretics; monitor; avoid giving meds in D5W; Status: Acute (2) Hypokalemia Assessment & Plan: Worsened by loop diuretics, currently held; replenish prn; Status: Acute (3) Hypertension Assessment & Plan: BP controlled on cardizem and labetalol, continue same; Status: Acute (4) Proteinuria Status: Acute (5) Hypocalcemia Assessment & Plan: Improved on PO calcium carbonate, needs vitamin D replenishment as well; Status: Acute (6) Edema Assessment & Plan: Improved but holding diuretics due to hypokalemia and metabolic alkalosis; Status: Acute
[2017-06-10] MEDS: (Lantus) Insulin Glargine, Recombinant SC SCH (22:25)
[2017-06-11] MEDS ORDERED: Dextrose 50% VIAL Inj (50 ml) IV ONE (07:02)
[2017-06-11] MEDS: (Novolog) Insulin Aspart, Recombinant 100 u/ml 10 ml vial SC SCH ×7 (07:42→21:33)
[2017-06-11 07:44] LABS: ALB/GLOB RATIO 0.8 (1.0-2.1); ALBUMIN 2.3 g/dL (3.5-5.0); ALT/SGPT 20 U/L (9-52); AST/SGOT 48 U/L (14-36); BLOOD UREA NITROGEN 22 mg/dL (7-17); GFR AFRICAN-AMERICAN > 60; GFR NON-AFRICAN AMERICAN > 60; MAGNESIUM 1.7 mg/dL (1.6-2.3)
--- NOTE | 2017-06-11 09:10 | CP.PCM.PN ---
Subjective - Date & Time of Evaluation Date of Evaluation: 06/11/17 Time of Evaluation: 09:05 - Subjective Subjective: General SUrgery Progress Note for Dr. Richard This 86F was seen and examined this AM at bedside. Reports no acute events overnight. No output in ostomy, toleraing clears. Objective - Vital Signs/Intake and Output Vital Signs (last 24 hours): Temp Pulse Resp BP Pulse Ox 97.1 F L 69 20 139/77 97 06/11/17 08:54 06/11/17 08:54 06/11/17 08:54 06/11/17 08:54 06/11/17 08:54 Intake and Output: 06/11/17 06/11/17 06:59 18:59 Intake Total 700 Output Total 1080 Balance -380 - Medications Medications: Current Medications Acetaminophen (Tylenol 650mg/20.3ml Solution Ud) 650 mg PO Q4H PRN PRN Reason: Pain, moderate (4-7) Calcium Carbonate (Oscal) 500 mg PO BID [facility] Last Admin: 06/10/17 18:44 Dose: 500 mg Diltiazem HCl (Cardizem Cd) 120 mg PO DAILY [facility] Last Admin: 06/10/17 10:00 Dose: 120 mg Ergocalciferol (Drisdol 50,000 Intl Units Cap) 1 cap PO Q7D [facility] Stop: 07/20/17 06:15 Last Admin: 06/08/17 06:00 Dose: Not Given Furosemide (Lasix) 20 mg PO BID [facility] Last Admin: 06/09/17 17:20 Dose: 20 mg Hydromorphone HCl (Dilaudid) 1 mg IVP Q4H PRN PRN Reason: Pain, moderate (4-7) Fluconazole (Diflucan Iv 100 Mg/50 Ml Ns) 50 mls @ 50 mls/hr IVPB DAILY [facility] Last Admin: 06/10/17 10:00 Dose: 50 mls/hr Tigecycline 50 mg/ Sodium (Chloride) 100 mls @ 100 mls/hr IVPB Q12H [facility] Last Admin: 06/11/17 06:03 Dose: 100 mls/hr Insulin Aspart (Novolog) 0 unit SC ACHS [facility] PRN Reason: Protocol Last Admin: 06/11/17 07:42 Dose: Not Given Insulin Aspart (Novolog) 3 unit SC AC [facility] Last Admin: 06/11/17 07:42 Dose: Not Given Insulin Glargine (Lantus) 20 unit SC HS [facility] Last Admin: 06/10/17 22:25 Dose: 20 units Labetalol HCl (Trandate) 100 mg PO BID [facility] Last Admin: 06/10/17 18:43 Dose: 100 mg Pantoprazole Sodium (Protonix Ec Tab) 40 mg PO DAILY [facility] Last Admin: 06/10/17 10:00 Dose: 40 mg Saccharomyces Boulardii (Florastor) 250 mg PO DAILY [facility] Last Admin: 06/10/17 09:59 Dose: 250 mg - Labs Labs: 06/10/17 07:07 06/11/17 07:02 PT 15.2 SECONDS (9.7-12.2) H 06/10/17 07:39 INR 1.3 06/10/17 07:39 APTT 33 SECONDS (21-34) 06/10/17 07:39 - Constitutional Appears: Non-toxic, No Acute Distress - Head Exam Head Exam: ATRAUMATIC, NORMOCEPHALIC - Eye Exam Eye Exam: EOMI - ENT Exam ENT Exam: Mucous Membranes Moist - Respiratory Exam Respiratory Exam: NORMAL BREATHING PATTERN - Cardiovascular Exam Cardiovascular Exam: +S1, +S2 - GI/Abdominal Exam GI & Abdominal Exam: Soft. absent: Guarding, Rigid, Tenderness Additional comments: Stoma pale and patent - Neurological Exam Neurological Exam: Awake, Normal Gait - Psychiatric Exam Psychiatric exam: Normal Affect, Normal Mood - Skin Skin Exam: Dry, Intact Assessment and Plan - Assessment and Plan (Free Text) Assessment: 86F s/p exploratory laparotomy w/diverting colostomy & liver biopsy POD#17 s/p colostomy revesion POD#1 Plan: Encourage IS use PT Monitor for signs of bleeding DW Dr. Hilary Azevedo PGY2
[2017-06-11] MEDS: diltiaZEM 120 mg/24 Hours CD Cap PO SCH (10:04)
[2017-06-11] MEDS: Fluconazole IV 100mg/50 ml NS 50 ML IVPB SCH (10:04)
[2017-06-11] MEDS: Pantoprazole 40 mg EC Tab PO SCH (10:04)
[2017-06-11] MEDS: Saccharomyces Boulardi 250 mg Cap PO SCH (10:04)
--- NOTE | 2017-06-11 14:43 | CP.PCM.PN ---
Subjective - Date & Time of Evaluation Date of Evaluation: 06/11/17 Time of Evaluation: 14:30 - Subjective Subjective: Patient was seen and examined at 2:30 PM 06/11/17. Also on ROS NO chest pain NO SOB NO cough NO abdominal pain NO n/v Tired NO eye pain/change in vision NO ear pain/change in hearing NO headache Also on Exam: HEENT: EOMI, PERRLA, NO cervical/supraclavicular/submandibular lymphadenopathy, NO pharyngeal erythema/exudate, NO thyromegaly Cardio: NS1 and NS2, NO M/R/G Resp: CTA B/L, NO R/R/W however breath sounds decreased in the bilateral basilar areas GI: Central surgical site with edel with NO dehiscence/cellulitis noted, Colostomy bag in Left mid quadrant with NO stool but filled with air (Confirmed with Nurse Matilda that there has been no bowel movement since surgery) Ext: 2+ pitting edema involving the bilateral LE from the feet to just below the knees, trace to 1+ pitting edema of the bilateral arms Neuro: CN II through XII are grossly intact Assessments: 1). Sigmoid Colon Mass/Liver Metastasis: Patient underwent laparotomy with diverting colostomy and liver biopsy on . She was found to have the colonic mass invading the bladder and therefore was not entirely resectable. KRAS mutation testing ordered by Heme/Onc Dr. Angella Bright and then outpatient Chemotherapy.. Revision of Colostomy by Surgery Dr. Richard performed morning 06/10/17 2). Hx Respiratory Acidosis 3). Sepsis Urine Culture 05/30/17 shows NO growth Urine Culture 06/04/17 showed Yeast and patient started on Fluconazole 100 mg PO 1x/day (06/08/17). Order repeat Urine Culture for 06/15/17. Blood Culture 05/28/17 and 05/29/17 was negative at 5 days Blood Culture 06/08/17 is negative to date Peritoneal Fluid 05/30/17 showed NO growth DARRYL Drain Culture x 1 06/04/17 showed VRE: Tigecycline 100 mg IV x 1 dose 06/08/17 then 50 mg IV Q12H was started 06/09/17: DARRYL drains continue output clear yellow material ID Dr. Maravilla 4). Hx DM 2 Insulin was adjusted on evening 06/06/17 as Surgery was concerned about the blood glucose being in the high 200s. However due to this adjustment, patient had episode of hypoglycemia again on morning of 06/07/17. Patient had another episode of hypoglycemia morning of 06/11/17. Because of this and until patient starts to eat a regular diet (she is currently on FULL LIQUID ) her Lantus has bee reduced from 20 to 10 units starting at 10 PM 06/11/17. Cotinue premeal Aspart 3 Units SC. 5). Hx HTN Diltiazem CD 120 mg PO 1x/day Labetolol 100 mg PO 2x/day 6). Anemia Likely Secondary To Chronic Disease/Colon CA 2 Units of PRBC given 06/08/17 after PICC line placement: HgB/Hct are now stable 7). Pericardial Effusion/Cardiomegaly 8). Bilateral Renal Cysts 9). Leukocytosis Likely Secondary to Sepsis: see Assessment and Plan #3 Leukocytosis has now resolved 10). Hypervolemic Hyponatremia Lasix 20 mg PO 2x/day was placed on HOLD by Nephrology 06/09/17 NaCl 2 gm PO 3x/day was discontinued Tolvaptan 15 mg PO x 1 dose 06/08/17: Na has normalized Nephrology Dr. Lennon 11). Low Albumin Likely secondary to recent surgery/poor intake Albumin 12.5 gm x 4 doses finished on 06/07/17 12). Bilateral Pleural Effusion As per CT Chest 06/02/[address] John attempted Thoracentesis but too small and not amenable to thoracentesis 13). Bilateral UE and LE Edema Bilateral UE Doppler 06/03/17: Superficial Thrombosis Right Basilic Vein and NO DVT Bilateral LE Doppler 06/03/17: NO DVT 14). Hypocalcemia Calcium Gluconate 2 gm IV given 06/08/17 after PICC line placement: when corrected for low albumin, Ca now has normalized Calcium Carbonate 500 mg PO 2x/day 15). Low Vitamin D Vitamin D 50,000 Units once a week for 8 weeks starting 06/08/17 16). Hypokalemia Repleted via PO and IV 06/10/17 and 06/11/17 17). Hypomagnesemia Resolved 18). Prophylaxis Duoneb Tylenol Heparin placed on HOLD in light of low HgB/Hct on 06/08/17 Protonix Florastor 06/07/17: two phlebotomists attempted to draw blood for CBC but not successful. Attempted to get PICC line for access however patient declined and wanted to be left alone and agreed to have placed on 06/08/17. 06/08/17: PICC Line placed. Surgery Dr. Richard holding off on revision of Colostomy for now until patient more medical stable. 06/09/17: Patient has been medically optimized for revision of Colostomy for morning 06/10/17. Surgery Team has been notified. 06/10/17: S/P revision of Colostomy. Spoke with ANAYELI Adorno who was at bedside and she was updated. 06/11/17: Incentive Spirometry encouraged 10x every hour. PT Evaluation and Treatment to get patient out of bed and moving ordered. Arya Remy D.O. Objective - Vital Signs/Intake and Output Vital Signs (last 24 hours): Temp Pulse Resp BP Pulse Ox 97.1 F L 69 20 139/77 97 06/11/17 08:54 06/11/17 08:54 06/11/17 08:54 06/11/17 08:54 06/11/17 08:54 Intake and Output: 06/11/17 06/11/17 06:59 18:59 Intake Total 700 450 Output Total 1080 400 Balance -380 50 - Medications Medications: Current Medications Acetaminophen (Tylenol 650mg/20.3ml Solution Ud) 650 mg PO Q4H PRN PRN Reason: Pain, moderate (4-7) Calcium Carbonate (Oscal) 500 mg PO BID [facility] Last Admin: 06/11/17 10:04 Dose: 500 mg Diltiazem HCl (Cardizem Cd) 120 mg PO DAILY [facility] Last Admin: 06/11/17 10:04 Dose: 120 mg Ergocalciferol (Drisdol 50,000 Intl Units Cap) 1 cap PO Q7D [facility] Stop: 07/20/17 06:15 Last Admin: 06/08/17 06:00 Dose: Not Given Furosemide (Lasix) 20 mg PO BID [facility] Last Admin: 06/09/17 17:20 Dose: 20 mg Hydromorphone HCl (Dilaudid) 1 mg IVP Q4H PRN PRN Reason: Pain, moderate (4-7) Fluconazole (Diflucan Iv 100 Mg/50 Ml Ns) 50 mls @ 50 mls/hr IVPB DAILY [facility] Last Admin: 06/11/17 10:04 Dose: 50 mls/hr Tigecycline 50 mg/ Sodium (Chloride) 100 mls @ 100 mls/hr IVPB Q12H [facility] Last Admin: 06/11/17 06:03 Dose: 100 mls/hr Insulin Aspart (Novolog) 0 unit SC ACHS [facility] PRN Reason: Protocol Last Admin: 06/11/17 11:55 Dose: Not Given Insulin Aspart (Novolog) 3 unit SC AC [facility] Last Admin: 06/11/17 11:55 Dose: Not Given Insulin Glargine (Lantus) 20 unit SC HS [facility] Last Admin: 06/10/17 22:25 Dose: 20 units Labetalol HCl (Trandate) 100 mg PO BID [facility] Last Admin: 06/11/17 10:04 Dose: 100 mg Pantoprazole Sodium (Protonix Ec Tab) 40 mg PO DAILY [facility] Last Admin: 06/11/17 10:04 Dose: 40 mg Saccharomyces Boulardii (Florastor) 250 mg PO DAILY [facility] Last Admin: 06/11/17 10:04 Dose: 250 mg - Labs Labs: 06/10/17 07:07 06/11/17 07:02 PT 15.2 SECONDS (9.7-12.2) H 06/10/17 07:39 INR 1.3 06/10/17 07:39 APTT 33 SECONDS (21-34) 06/10/17 07:39
[2017-06-11 15:06] LABS: BASO % 0.5 % (0.0-2.0); EOS % 0.3 % (0.0-4.0); HEMOGLOBIN 11.9 g/dL (11.0-16.0); LYMPH # 1.6 K/uL (1.0-4.3); LYMPH % 15.5 % (20.0-40.0); MEAN CELL VOLUME 88.1 fL (81.0-99.0); MEAN CORPUSCULAR HEMOGLOBIN 29.2 pg (27.0-31.0); MEAN CORPUSCULAR HGB CONC 33.1 g/dL (33.0-37.0); MEAN PLATELET VOLUME 8.5 fL (7.2-11.7); MONO # 0.6 K/uL (0.0-0.8); MONO % 5.9 % (0.0-10.0); NEUT # 8.2 K/uL (1.8-7.0); NEUT % 77.8 % (50.0-75.0); RBC 4.06 Mil/uL (3.80-5.20); RED CELL DISTRIBUTION WIDTH 18.1 % (11.5-14.5); WHITE BLOOD COUNT 10.6 K/uL (4.8-10.8)
[2017-06-11] MEDS ORDERED: Dextrose 50% SYRINGE Inj (50 ml) IV PRN (16:28)
[2017-06-11] MEDS ORDERED: Glucagon Recombinant 1 mg Inj IM PRN (16:28)
[2017-06-11] MEDS: (Lantus) Insulin Glargine, Recombinant SC SCH (21:45)
--- NOTE | 2017-06-11 22:34 | CP.PCM.PN ---
Subjective - Date & Time of Evaluation Date of Evaluation: 06/11/17 Time of Evaluation: 12:00 Objective - Vital Signs/Intake and Output Vital Signs (last 24 hours): Temp Pulse Resp BP Pulse Ox 9703 F H 69 20 113/69 96 06/11/17 16:00 06/11/17 16:00 06/11/17 16:00 06/11/17 16:00 06/11/17 16:00 Intake and Output: 06/11/17 06/12/17 18:59 06:59 Intake Total 450 Output Total 465 Balance -15 - Medications Medications: Current Medications Acetaminophen (Tylenol 650mg/20.3ml Solution Ud) 650 mg PO Q4H PRN PRN Reason: Pain, moderate (4-7) Calcium Carbonate (Oscal) 500 mg PO BID [facility] Last Admin: 06/11/17 18:15 Dose: 500 mg Dextrose (Dextrose 50% Inj) 0 ml IV STAT PRN; Protocol PRN Reason: Hypoglycemia Protocol Dextrose (Glutose 15) 0 gm PO ONCE PRN; Protocol PRN Reason: Hypoglycemia Protocol Diltiazem HCl (Cardizem Cd) 120 mg PO DAILY [facility] Last Admin: 06/11/17 10:04 Dose: 120 mg Ergocalciferol (Drisdol 50,000 Intl Units Cap) 1 cap PO Q7D [facility] Stop: 07/20/17 06:15 Last Admin: 06/08/17 06:00 Dose: Not Given Furosemide (Lasix) 20 mg PO BID [facility] Last Admin: 06/09/17 17:20 Dose: 20 mg Glucagon (Glucagen Diagnostic Kit) 0 mg IM STAT PRN; Protocol PRN Reason: Hypoglycemia Protocol Hydromorphone HCl (Dilaudid) 1 mg IVP Q4H PRN PRN Reason: Pain, moderate (4-7) Fluconazole (Diflucan Iv 100 Mg/50 Ml Ns) 50 mls @ 50 mls/hr IVPB DAILY [facility] Last Admin: 06/11/17 10:04 Dose: 50 mls/hr Tigecycline 50 mg/ Sodium (Chloride) 100 mls @ 100 mls/hr IVPB Q12H [facility] Last Admin: 06/11/17 18:15 Dose: 100 mls/hr Dextrose (Dextrose 5% In Water 1000 Ml) 1,000 mls @ 0 mls/hr IV .Q0M PRN; Protocol; Per Protocol PRN Reason: Hypoglycemia Protocol Insulin Aspart (Novolog) 0 unit SC ACHS [facility] PRN Reason: Protocol Last Admin: 06/11/17 21:33 Dose: Not Given Insulin Aspart (Novolog) 3 unit SC AC [facility] Last Admin: 06/11/17 17:47 Dose: Not Given Insulin Glargine (Lantus) 10 unit SC HS [facility] Last Admin: 06/11/17 21:45 Dose: 10 units Labetalol HCl (Trandate) 100 mg PO BID [facility] Last Admin: 06/11/17 18:15 Dose: 100 mg Pantoprazole Sodium (Protonix Ec Tab) 40 mg PO DAILY [facility] Last Admin: 06/11/17 10:04 Dose: 40 mg Saccharomyces Boulardii (Florastor) 250 mg PO DAILY [facility] Last Admin: 06/11/17 10:04 Dose: 250 mg - Labs Labs: 06/11/17 14:57 06/11/17 07:02 PT 15.2 SECONDS (9.7-12.2) H 06/10/17 07:39 INR 1.3 06/10/17 07:39 APTT 33 SECONDS (21-34) 06/10/17 07:39 Assessment and Plan (1) Hyponatremia Assessment & Plan: Resolved after giving dose of tolvaptan; monitor; continue 1L PO fluid restriction; Status: Acute (2) Hypokalemia Status: Acute (3) Hypertension Status: Acute (4) Proteinuria Status: Acute (5) Hypocalcemia Status: Acute (6) Edema Assessment & Plan: Still with metabolic alkalosis, continue to hold lasix for now; edema much improved; Status: Acute
--- NOTE | 2017-06-12 07:28 | CP.PCM.PN ---
<Megha Monk - Last Filed: 06/12/17 15:26> Subjective - Date & Time of Evaluation Date of Evaluation: 06/12/17 Time of Evaluation: 07:00 - Subjective Subjective: Medicine Progress Note: Patient was seen and examined at bedside in the AM. Patient states she is not eating very much as she does not have much of an appetite. Patient denies nausea, vomiting, or fever. Patient states her swelling has improved. Objective - Vital Signs/Intake and Output Vital Signs (last 24 hours): Temp Pulse Resp BP Pulse Ox 97.1 F L 70 20 111/65 97 06/11/17 23:30 06/11/17 23:30 06/11/17 23:30 06/11/17 23:30 06/11/17 23:30 Intake and Output: 06/12/17 06/12/17 06:59 18:59 Intake Total 100 Output Total 120 425 Balance -20 -425 - Medications Medications: Current Medications Acetaminophen (Tylenol 650mg/20.3ml Solution Ud) 650 mg PO Q4H PRN PRN Reason: Pain, moderate (4-7) Calcium Carbonate (Oscal) 500 mg PO BID [facility] Last Admin: 06/11/17 18:15 Dose: 500 mg Dextrose (Dextrose 50% Inj) 0 ml IV STAT PRN; Protocol PRN Reason: Hypoglycemia Protocol Dextrose (Glutose 15) 0 gm PO ONCE PRN; Protocol PRN Reason: Hypoglycemia Protocol Diltiazem HCl (Cardizem Cd) 120 mg PO DAILY [facility] Last Admin: 06/11/17 10:04 Dose: 120 mg Ergocalciferol (Drisdol 50,000 Intl Units Cap) 1 cap PO Q7D [facility] Stop: 07/20/17 06:15 Last Admin: 06/08/17 06:00 Dose: Not Given Furosemide (Lasix) 20 mg PO BID [facility] Last Admin: 06/09/17 17:20 Dose: 20 mg Glucagon (Glucagen Diagnostic Kit) 0 mg IM STAT PRN; Protocol PRN Reason: Hypoglycemia Protocol Hydromorphone HCl (Dilaudid) 1 mg IVP Q4H PRN PRN Reason: Pain, moderate (4-7) Fluconazole (Diflucan Iv 100 Mg/50 Ml Ns) 50 mls @ 50 mls/hr IVPB DAILY [facility] Last Admin: 06/11/17 10:04 Dose: 50 mls/hr Tigecycline 50 mg/ Sodium (Chloride) 100 mls @ 100 mls/hr IVPB Q12H [facility] Last Admin: 06/12/17 07:02 Dose: 100 mls/hr Dextrose (Dextrose 5% In Water 1000 Ml) 1,000 mls @ 0 mls/hr IV .Q0M PRN; Protocol; Per Protocol PRN Reason: Hypoglycemia Protocol Insulin Aspart (Novolog) 0 unit SC ACHS [facility] PRN Reason: Protocol Last Admin: 06/11/17 21:33 Dose: Not Given Insulin Aspart (Novolog) 3 unit SC AC [facility] Last Admin: 06/11/17 17:47 Dose: Not Given Insulin Glargine (Lantus) 10 unit SC HS [facility] Last Admin: 06/11/17 21:45 Dose: 10 units Labetalol HCl (Trandate) 100 mg PO BID [facility] Last Admin: 06/11/17 18:15 Dose: 100 mg Pantoprazole Sodium (Protonix Ec Tab) 40 mg PO DAILY [facility] Last Admin: 06/11/17 10:04 Dose: 40 mg Saccharomyces Boulardii (Florastor) 250 mg PO DAILY [facility] Last Admin: 06/11/17 10:04 Dose: 250 mg - Labs Labs: 06/11/17 14:57 06/11/17 07:02 PT 15.2 SECONDS (9.7-12.2) H 06/10/17 07:39 INR 1.3 06/10/17 07:39 APTT 33 SECONDS (21-34) 06/10/17 07:39 - Constitutional Appears: No Acute Distress - Head Exam Head Exam: ATRAUMATIC, NORMAL INSPECTION - Eye Exam Eye Exam: EOMI, Normal appearance - ENT Exam ENT Exam: Mucous Membranes Moist - Respiratory Exam Respiratory Exam: Clear to Ausculation Bilateral, NORMAL BREATHING PATTERN - Cardiovascular Exam Cardiovascular Exam: REGULAR RHYTHM, +S1, +S2 - GI/Abdominal Exam GI & Abdominal Exam: Soft, Normal Bowel Sounds. absent: Tenderness Additional comments: colostomy bag - clean, dry and intact - Extremities Exam Extremities Exam: Pedal Edema (+1 pedal edema lower extremities bilateral; edema upper extremities ). absent: Tenderness - Neurological Exam Neurological Exam: Alert, Awake, Oriented x3 - Psychiatric Exam Psychiatric exam: Flat Affect - Skin Skin Exam: Dry, Intact, Normal Color, Warm Additional comments: abdominal incision - clean, dry and intact Assessment and Plan - Assessment and Plan (Free Text) Assessment: 1). Sigmoid colon mass/Liver lesion likely mets/Weight loss and abdominal pain * CT-Abd/Pelvis on admission showed 8.6 cm sigmoid mass with extensive hepatic metastasis. Bilateral renal cysts with large right upper pole renal cyst. Small bilateral pleural effusion and small pericardial effusion. Small hiatal hernia. Possible small diverticulum of the herniated stomach * Repeat Abd/Pel CT (05/30): no ureteral injury; bulk tumor in pelvis and hepatic mets disease; increasing pleural effusion in consolidative changes at the lung base; stable pericardial effusion; severe post-op anasarca. * CEA elevated @ 11.6. (Normal = 0-3.0) * Colonscopy (05/22/17): Non-bleeding external and internal hemorrhoids. 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 At the level of the distal sigmoid colon, contrast slowly traversed through a very thin and irregular channel to the level of the mid sigmoid at the site of the known sigmoid carcinoma. Contrast did not flow freely past this level. Exam was subsequently terminated. These findings were concerning for a near complete obstruction of the bowel lumen from the adjacent obstructing tumor. * Clear ensure ordered and Clear liquid diet started. * Venous dopplers UE&LE b/l ordered due to edema and cancer: f/u results * Calorie count and monitoring Consults * GI consult Dr Foster ,appreciated * recommends peripheral hyperalimentation * Started PPN on 06/01/17 with electrolytes - PPN stopped 06/02 due to elevated glucose - Dietary Consult --> help appreciated * Dr Bright oncology consult - Recs appreciated * suggests consulting IR for FNA biopsy of liver lesions to obtain diagnosis * Surgery consult Dr Richard-appreciated * 05/25/17: Patient underwent laparotomy with diverting colostomy and liver biopsy. She was found to have the colonic mass invading the bladder and therefore was not entirely resectable * Liver Biopsy: necrotic tissue * NGT removed on 05/29/17 * Discontinued naqvi 05/31 * Patient scheduled for osteomy revision on 06/06/17 was canceled per surgery due to hyponatremia * Stoma revision completed 06/10/17 . 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 Sepsis * leukocytosis, bandemia * procalcitonin trending down: 4.15 --> 1.82--> 0.78 * Blood cx (05/28): no growth; urine cx: no growth * Peritoneal fluid stain: negative * Repeat blood cultures (05/29/17): negative * UA: 1+ protein, 1+ blood, 1+ LE, WBC29, RBC32, Occ bacteria * ID consulted: Dr. Maravilla --> help appreciated * Meropenem 1gm IV Q12 discontinued * Vanco 750mg IV Q24 discontinued * Discontinued Flagyl 500mg IV Q8h (started 05/30/17) * CXR (06/01): moderate left, small right pleural effusion; moderate venous congestions; confluent opacities in left mid to lower and right mid to lower lung; cardiomegaly * Urine Culture: Yeast species * Fluconazole 100mg po daily started 06/08 * f/u repeat culture 05/15/17 * DARRYL drain cx: VRE + * Tigecycline 100 mg IV x 1 dose 06/08/17 then 50 mg IV Q12H starting 06/09/17 * f/u repeat culture 05/16/17 3). DM 2 * Aspart ISS Q6H Low Dose * Accuchecks -moderate * Lantus 20 units HS (increased from 10 units on 06/03) * Novolog 3 units SCqAC * A1c: 8.4 4). Hypertension * Labetolol 100mg Q12H, Enalapril 15 mg Daily, and Cardizem [id number] Daily 5) Acute Anemia - Type and Screen - 2 units of PRBC to be given 06/08/17 - Tylenol 650mg to be given 30 minutes before each blood transfusion - Benadryl 25mg to be given 30 minutes before each blood transfusion - Lasix 10mg to be given 30 minutes before each blood transfusion - s/p transfusion of 2 units hemaglobin 12.3 * Continue to monitor 6). Pericardial effusion/cardiomegaly * Cardiology Consulted (Dr. Portillo) - help appreciated * as per Dr. Portillo, continue medical therapy; effusion is small; LV function is normal * ECHO (05/20/17): Diastolic Dysfunction Grade I-abnormal relaxation pattern, Trace TR and MR 7). Bilateral Renal Cysts * U/S Renal 05/26/17: Right Upper Pole renal cyst measures approximately 10.4x8.3x9.2 cm. Left upper pole renal cyst measures 2.2x1.4x1.6 cm * Will need follow up U/S in 6 months 8). Respiratory Acidosis * Patient was extubated on 05/26/17 and placed on BiPap and Bicarb Drip * Patient no longer on BiPap or bicarb drip 9). Pleural Effusion * CXR (06/01): moderate left, small right pleural effusion; moderate venous congestions; confluent opacities in left mid to lower and right mid to lower lung; cardiomegaly * Chest CT: moderate b/l pleural effusion with b/l lower lobe segmental/ subsegmental atelectasis; cardiomegaly with small pericardial effusion; probably widespread hepatic metastasis. * Continue Duonebs Q4 * Pulmonology consulted, Dr. Cherry, help appreciated * IR consulted for therapeutic thoracentesis for pleural effusions; as per IR, US showed small pleural effusions not amenable to thoracentisis. 10.) Hypervolemic Hyponatremia - likely secondary to SIADH - Nephrology Consult: Dr. Lennon --> help appreciated - Urine sodium 43 - Urine Osmolality 563 - 1.5L of fluid restriction - Lasix 20mg Po daily - Tolvaptan 15mg po x1 dose 06/08/17 11.) Hypocalcemia /Hypokalemia - Repleted. Will monitor with serial CMP's. 12.) IV Access - Consent was done with POA 13.) Hypoalbuminemia - 25% Albumin 12.5gm IV once 14.). DVT and GI prophylaxis * Heparin 5000sc Q8- HOLD * Dilaudid 0.5 mg IV Q4H PRN Severe Pain * Protonix 40 mg IV Q12H * PT/OT * Incentive spirometry * Palliative care: patient is DNR/DNI as of 05/29/17. Polst form completed. * Diet: Diabetic diet * Discussed with Dr. Bright about a possible appetite stimulant as patient has decreased appetite. Romero Mckoy ([phone]) Niall Prabhakar ([phone]) as POA/Health Care Proxy Disposition: Patient accepted to [facility] Pending repeat 06/15/17 urine and drain cultures to be negative. Case discussed with Dr. Isael Monk PGY-1 <Mamta Kirkland V - Last Filed: 06/15/17 07:26> Objective - Vital Signs/Intake and Output Vital Signs (last 24 hours): Temp Pulse Resp BP Pulse Ox 97.4 F L 62 20 134/72 98 06/14/17 23:25 06/14/17 23:25 06/14/17 23:25 06/14/17 23:25 06/14/17 23:25 Intake and Output: 06/15/17 06/15/17 06:59 18:59 Intake Total 336 Output Total 1340 Balance -1004 - Medications Medications: Current Medications Acetaminophen (Tylenol 650mg/20.3ml Solution Ud) 650 mg PO Q4H PRN PRN Reason: Pain, moderate (4-7) Last Admin: 06/14/17 17:40 Dose: 650 mg Calcium Carbonate (Oscal) 500 mg PO BID [facility] Last Admin: 06/14/17 17:38 Dose: 500 mg Dextrose (Dextrose 50% Inj) 0 ml IV STAT PRN; Protocol PRN Reason: Hypoglycemia Protocol Dextrose (Glutose 15) 0 gm PO ONCE PRN; Protocol PRN Reason: Hypoglycemia Protocol Diltiazem HCl (Cardizem Cd) 120 mg PO DAILY [facility] Last Admin: 06/14/17 10:14 Dose: 120 mg Ergocalciferol (Drisdol 50,000 Intl Units Cap) 1 cap PO Q7D [facility] Stop: 07/20/17 06:15 Last Admin: 06/15/17 05:48 Dose: 1 cap Furosemide (Lasix) 20 mg PO BID [facility] Last Admin: 06/14/17 17:39 Dose: 20 mg Glucagon (Glucagen Diagnostic Kit) 0 mg IM STAT PRN; Protocol PRN Reason: Hypoglycemia Protocol Fluconazole (Diflucan Iv 100 Mg/50 Ml Ns) 50 mls @ 50 mls/hr IVPB DAILY [facility] Last Admin: 06/14/17 10:14 Dose: 50 mls/hr Tigecycline 50 mg/ Sodium (Chloride) 100 mls @ 100 mls/hr IVPB Q12H [facility] Last Admin: 06/15/17 06:26 Dose: 100 mls/hr Multivitamins/Vitamin C 10 ml/Chromium/Copper/Manganese/Zinc 1 ml/ Amino Acids 1,011 mls @ 42 mls/hr IV .Q24H [facility] Last Admin: 06/13/17 18:11 Dose: 42 mls/hr Fat Emulsion Intravenous (Intralipid 20%) 500 mls @ 42 mls/hr IV TTS [facility] Last Admin: 06/13/17 18:11 Dose: 42 mls/hr Multivitamins/Vitamin C 10 ml/Chromium/Copper/Manganese/Zinc 1 ml/ Amino Acids 1,011 mls @ 42 mls/hr IV .Q24H [facility] Stop: 06/15/17 17:59 Last Admin: 06/14/17 17:39 Dose: 42 mls/hr Insulin Aspart (Novolog) 0 unit SC ACHS [facility] PRN Reason: Protocol Last Admin: 06/14/17 22:13 Dose: Not Given Insulin Aspart (Novolog) 3 unit SC AC [facility] Last Admin: 06/14/17 17:38 Dose: 3 unit Insulin Glargine (Lantus) 10 unit SC HS [facility] Last Admin: 06/14/17 22:16 Dose: 10 units Labetalol HCl (Trandate) 100 mg PO BID [facility] Last Admin: 06/14/17 17:42 Dose: Not Given Pantoprazole Sodium (Protonix Ec Tab) 40 mg PO DAILY [facility] Last Admin: 06/14/17 10:14 Dose: 40 mg Saccharomyces Boulardii (Florastor) 250 mg PO DAILY [facility] Last Admin: 06/14/17 10:14 Dose: 250 mg - Labs Labs: 06/14/17 06:55 06/14/17 06:55 PT 15.2 SECONDS (9.7-12.2) H 06/10/17 07:39 INR 1.3 06/10/17 07:39 APTT 33 SECONDS (21-34) 06/10/17 07:39 Attending/Attestation - Attestation I have personally seen and examined this patient.: Yes I have fully participated in the care of the patient.: Yes I have reviewed all pertinent clinical information, including history, physical exam and plan: Yes Notes (Text): This is late computer entry for 06/12/17. Patient seen, examined, and case discussed with day-time resident. Patient is currently on the 5th Floor in contact isolation for VRE+ from Peg Drains. Patient is currently on Tigecycline IV. Patient underwent revision of colostomy on 06/10/17, postoperative day 2. Patient encouraged to eat. Patient at breakfast only ate minimal oatmeal and cereal. I saw patient again in afternoon, spoke with brother to bring food she likes from home to gain her strength. Patient to have reculture of urine and DARRYL Drains later this week to determine if needs IV Abx on discharge or not. Patient's sugar better controlled in the AM given adjustment in evening long acting insulin Assessment/Plan 1). Sigmoid Colon Mass/Liver Metastasis: * Patient underwent laparotomy with diverting colostomy and liver biopsy on 05/25. She was found to have the colonic mass invading the bladder and therefore was not entirely resectable * KRAS mutation testing ordered by Heme/Onc Dr. Angella Bright and then outpatient Chemotherapy.. * Revision of Colostomy by Surgery Dr. Richard performed morning 06/10/17 2). Hx Respiratory Acidosis 3). Sepsis * Infectious Disease (Dr. Maravilla) on board-->help appreciated * Urine Culture 05/30/17 shows NO growth * Urine Culture 06/04/17 showed Yeast and patient started on Fluconazole 100 mg PO 1x/day (06/08/17). Order repeat Urine Culture for 06/15/17. * Blood Culture 05/28/17 and 05/29/17 was negative at 5 days * Blood Culture 06/08/17 is negative to date * Peritoneal Fluid 05/30/17 showed NO growth * DARRYL Drain Culture x 1 06/04/17 showed VRE: Tigecycline 100 mg IV x 1 dose then 50 mg IV Q12H was started 06/09/17: DARRYL drains continue output clear yellow material 4). Hx DM 2 * Insulin was adjusted on evening 06/06/17 as Surgery was concerned about the blood glucose being in the high 200s. However due to this adjustment, patient had episode of hypoglycemia again on morning of 06/07/17. * Patient had another episode of hypoglycemia morning of 06/11/17. Because of this and until patient starts to eat a regular diet (she is currently on FULL LIQUID) her Lantus has bee reduced from 20 to 10 units starting at 10 PM . Continue premeal Aspart 3 Units SC. * Monitor nutrition and will need to adjust insulin if applicable 5). Hx HTN * Diltiazem CD 120 mg PO 1x/day * Labetolol 100 mg PO 2x/day 6). Anemia Likely Secondary To Chronic Disease/Colon CA * 2 Units of PRBC given 06/08/17 after PICC line placement: HgB/Hct are now stable * continue to monitor H/H 7). Pericardial Effusion/Cardiomegaly 8). Bilateral Renal Cysts 9). Leukocytosis Likely Secondary to Sepsis: see Assessment and Plan #3 * Leukocytosis has now resolved 10). Hypervolemic Hyponatremia * Nephrology Dr. Lennon help appreciated * Lasix 20 mg PO 2x/day was placed on HOLD by Nephrology 06/09/17 * NaCl 2 gm PO 3x/day was discontinued * Tolvaptan 15 mg PO x 1 dose 06/08/17: Na has normalized 11). Low Albumin * Likely secondary to recent surgery/poor intake * Albumin 12.5 gm x 4 doses finished on 06/07/17 * Given Albumin 12.5 gm on 06/12/17 given low albumin 12). Bilateral Pleural Effusion * As per CT Chest 06/02/17 * IR Dr. John attempted Thoracentesis but too small and not amenable to thoracentesis 13). Bilateral UE and LE Edema * Bilateral UE Doppler 06/03/17: Superficial Thrombosis Right Basilic Vein and NO DVT * Bilateral LE Doppler 06/03/17: NO DVT 14). Hypocalcemia * Calcium Gluconate 2 gm IV given 06/08/17 after PICC line placement: when corrected for low albumin, Ca now has normalized * Calcium Carbonate 500 mg PO 2x/day 15). Low Vitamin D * Vitamin D 50,000 Units once a week for 8 weeks starting 06/08/17 16). Hypokalemia * Repleted via PO and IV 06/10/17 and 06/11/17 * monitor and replete if necessary 17). Hypomagnesemia * Resolved 18). Prophylaxis * Duoneb PRN * Tylenol 650mg PO Q 4H PRN pain * Heparin placed on HOLD in light of low HgB/Hct on 06/08/17 * Protonix 40mg PO daily * Florastor 250mg PO daily 06/07/17: two phlebotomists attempted to draw blood for CBC but not successful. Attempted to get PICC line for access however patient declined and wanted to be left alone and agreed to have placed on 06/08/17. 06/08/17: PICC Line placed. Surgery Dr. Richard holding off on revision of Colostomy for now until patient more medical stable. 06/09/17: Patient has been medically optimized for revision of Colostomy for morning 06/10/17. Surgery Team has been notified. 06/10/17: S/P revision of Colostomy. Spoke with ANAYELI Adorno who was at bedside and she was updated. 06/11/17: Incentive Spirometry encouraged 10x every hour. PT Evaluation and Treatment to get patient out of bed and moving ordered. 06/12/17: Encourage PO intake, Given Albumin. Continue IV abx for VRE and IV antifungal for yeast, repeat cultures later this week, f/u surgery POD 2 Will need to clarify with case management in regards to placement.
[2017-06-12 07:59] LABS: BASO # 0.1 K/uL (0.0-0.2); BASO % 0.6 % (0.0-2.0); EOS # 0.1 K/uL (0.0-0.7); EOS % 0.8 % (0.0-4.0); HEMOGLOBIN 11.8 g/dL (11.0-16.0); LYMPH # 1.8 K/uL (1.0-4.3); LYMPH % 17.4 % (20.0-40.0); MEAN CELL VOLUME 87.5 fL (81.0-99.0); MEAN CORPUSCULAR HEMOGLOBIN 29.8 pg (27.0-31.0); MEAN PLATELET VOLUME 8.2 fL (7.2-11.7); MONO # 0.7 K/uL (0.0-0.8); MONO % 6.6 % (0.0-10.0); NEUT # 7.7 K/uL (1.8-7.0); NEUT % 74.6 % (50.0-75.0); RBC 3.96 Mil/uL (3.80-5.20); RED CELL DISTRIBUTION WIDTH 18.3 % (11.5-14.5); WHITE BLOOD COUNT 10.3 K/uL (4.8-10.8)
[2017-06-12] MEDS: (Novolog) Insulin Aspart, Recombinant 100 u/ml 10 ml vial SC SCH ×7 (08:00→21:28)
[2017-06-12 08:41] LABS: ALB/GLOB RATIO 0.7 (1.0-2.1); ALBUMIN 1.9 g/dL (3.5-5.0); ALT/SGPT 20 U/L (9-52); AST/SGOT 31 U/L (14-36); BLOOD UREA NITROGEN 23 mg/dL (7-17); CALCIUM 7.3 mg/dl (8.6-10.4); GFR AFRICAN-AMERICAN > 60; GFR NON-AFRICAN AMERICAN > 60; MAGNESIUM 1.5 mg/dL (1.6-2.3)
[2017-06-12] MEDS ORDERED: Magnesium Sulfate 1 gm in D5W 1 GM/100 ML BAG IVPB ONE ×2 (09:00→12:00)
[2017-06-12] MEDS: Saccharomyces Boulardi 250 mg Cap PO SCH (10:02)
[2017-06-12] MEDS: diltiaZEM 120 mg/24 Hours CD Cap PO SCH (10:02)
[2017-06-12] MEDS: Pantoprazole 40 mg EC Tab PO SCH (10:02)
[2017-06-12] MEDS: Fluconazole IV 100mg/50 ml NS 50 ML IVPB SCH (10:10)
--- NOTE | 2017-06-12 11:22 | CP.PCM.PN ---
Subjective - Date & Time of Evaluation Date of Evaluation: 06/12/17 Time of Evaluation: 11:04 - Subjective Subjective: General Surgery Progress Note for Dr. Richard This pt was seen and examined this Am at bedside no acute events overnight, pt had stool overnight but no output from stoma, drain output is serous. Objective - Vital Signs/Intake and Output Vital Signs (last 24 hours): Temp Pulse Resp BP Pulse Ox 97.1 F L 70 20 111/65 97 06/11/17 23:30 06/11/17 23:30 06/11/17 23:30 06/11/17 23:30 06/11/17 23:30 Intake and Output: 06/12/17 06/12/17 06:59 18:59 Intake Total 100 Output Total 120 425 Balance -20 -425 - Medications Medications: Current Medications Acetaminophen (Tylenol 650mg/20.3ml Solution Ud) 650 mg PO Q4H PRN PRN Reason: Pain, moderate (4-7) Calcium Carbonate (Oscal) 500 mg PO BID [facility] Last Admin: 06/12/17 10:02 Dose: 500 mg Dextrose (Dextrose 50% Inj) 0 ml IV STAT PRN; Protocol PRN Reason: Hypoglycemia Protocol Dextrose (Glutose 15) 0 gm PO ONCE PRN; Protocol PRN Reason: Hypoglycemia Protocol Diltiazem HCl (Cardizem Cd) 120 mg PO DAILY [facility] Last Admin: 06/12/17 10:02 Dose: 120 mg Ergocalciferol (Drisdol 50,000 Intl Units Cap) 1 cap PO Q7D [facility] Stop: 07/20/17 06:15 Last Admin: 06/08/17 06:00 Dose: Not Given Furosemide (Lasix) 20 mg PO BID [facility] Last Admin: 06/09/17 17:20 Dose: 20 mg Glucagon (Glucagen Diagnostic Kit) 0 mg IM STAT PRN; Protocol PRN Reason: Hypoglycemia Protocol Hydromorphone HCl (Dilaudid) 1 mg IVP Q4H PRN PRN Reason: Pain, moderate (4-7) Fluconazole (Diflucan Iv 100 Mg/50 Ml Ns) 50 mls @ 50 mls/hr IVPB DAILY [facility] Last Admin: 06/12/17 10:10 Dose: 50 mls/hr Tigecycline 50 mg/ Sodium (Chloride) 100 mls @ 100 mls/hr IVPB Q12H [facility] Last Admin: 06/12/17 07:02 Dose: 100 mls/hr Dextrose (Dextrose 5% In Water 1000 Ml) 1,000 mls @ 0 mls/hr IV .Q0M PRN; Protocol; Per Protocol PRN Reason: Hypoglycemia Protocol Insulin Aspart (Novolog) 0 unit SC ACHS [facility] PRN Reason: Protocol Last Admin: 06/12/17 08:09 Dose: Not Given Insulin Aspart (Novolog) 3 unit SC AC [facility] Last Admin: 06/12/17 08:00 Dose: Not Given Insulin Glargine (Lantus) 10 unit SC HS [facility] Last Admin: 06/11/17 21:45 Dose: 10 units Labetalol HCl (Trandate) 100 mg PO BID [facility] Last Admin: 06/12/17 10:02 Dose: 100 mg Pantoprazole Sodium (Protonix Ec Tab) 40 mg PO DAILY [facility] Last Admin: 06/12/17 10:02 Dose: 40 mg Saccharomyces Boulardii (Florastor) 250 mg PO DAILY [facility] Last Admin: 06/12/17 10:02 Dose: 250 mg - Labs Labs: 06/12/17 07:34 06/12/17 07:34 PT 15.2 SECONDS (9.7-12.2) H 06/10/17 07:39 INR 1.3 06/10/17 07:39 APTT 33 SECONDS (21-34) 06/10/17 07:39 - Constitutional Appears: Non-toxic, No Acute Distress - Head Exam Head Exam: ATRAUMATIC, NORMOCEPHALIC - Eye Exam Eye Exam: EOMI, Normal appearance - ENT Exam ENT Exam: Mucous Membranes Moist - Respiratory Exam Respiratory Exam: NORMAL BREATHING PATTERN - Cardiovascular Exam Cardiovascular Exam: +S1, +S2 - GI/Abdominal Exam GI & Abdominal Exam: Soft. absent: Guarding, Rigid, Tenderness - Neurological Exam Neurological Exam: Alert, Awake - Psychiatric Exam Psychiatric exam: Normal Affect, Normal Mood - Skin Skin Exam: Dry, Intact Assessment and Plan - Assessment and Plan (Free Text) Assessment: 86F s/p exploratory laparotomy w/diverting colostomy & liver biopsy POD#18 s/p colostomy revesion POD#2 Plan: Encourage IS use PT LFD BENNIE Azevedo PGY2
[2017-06-12] MEDS ORDERED: Albumin Human 5% (12.5 gm/250 ml) IV ONE ×2 (11:26→12:30)
[2017-06-12] MEDS ORDERED: Albumin Human 25% (12.5 gm/50 ml) IV ONE (13:29)
--- NOTE | 2017-06-12 14:28 | CP.PCM.PN ---
Subjective - Date & Time of Evaluation Date of Evaluation: 06/12/17 Time of Evaluation: 02:20 - Subjective Subjective: dictated Objective - Vital Signs/Intake and Output Vital Signs (last 24 hours): Temp Pulse Resp BP Pulse Ox 97.1 F L 70 20 111/65 98 06/11/17 23:30 06/11/17 23:30 06/11/17 23:30 06/11/17 23:30 06/12/17 12:26 Intake and Output: 06/12/17 06/12/17 06:59 18:59 Intake Total 100 Output Total 120 425 Balance -20 -425 - Medications Medications: Current Medications Acetaminophen (Tylenol 650mg/20.3ml Solution Ud) 650 mg PO Q4H PRN PRN Reason: Pain, moderate (4-7) Calcium Carbonate (Oscal) 500 mg PO BID [facility] Last Admin: 06/12/17 10:02 Dose: 500 mg Dextrose (Dextrose 50% Inj) 0 ml IV STAT PRN; Protocol PRN Reason: Hypoglycemia Protocol Dextrose (Glutose 15) 0 gm PO ONCE PRN; Protocol PRN Reason: Hypoglycemia Protocol Diltiazem HCl (Cardizem Cd) 120 mg PO DAILY [facility] Last Admin: 06/12/17 10:02 Dose: 120 mg Ergocalciferol (Drisdol 50,000 Intl Units Cap) 1 cap PO Q7D [facility] Stop: 07/20/17 06:15 Last Admin: 06/08/17 06:00 Dose: Not Given Furosemide (Lasix) 20 mg PO BID [facility] Last Admin: 06/09/17 17:20 Dose: 20 mg Glucagon (Glucagen Diagnostic Kit) 0 mg IM STAT PRN; Protocol PRN Reason: Hypoglycemia Protocol Hydromorphone HCl (Dilaudid) 1 mg IVP Q4H PRN PRN Reason: Pain, moderate (4-7) Fluconazole (Diflucan Iv 100 Mg/50 Ml Ns) 50 mls @ 50 mls/hr IVPB DAILY [facility] Last Admin: 06/12/17 10:10 Dose: 50 mls/hr Tigecycline 50 mg/ Sodium (Chloride) 100 mls @ 100 mls/hr IVPB Q12H [facility] Last Admin: 06/12/17 07:02 Dose: 100 mls/hr Dextrose (Dextrose 5% In Water 1000 Ml) 1,000 mls @ 0 mls/hr IV .Q0M PRN; Protocol; Per Protocol PRN Reason: Hypoglycemia Protocol Insulin Aspart (Novolog) 0 unit SC ACHS [facility] PRN Reason: Protocol Last Admin: 06/12/17 12:53 Dose: Not Given Insulin Aspart (Novolog) 3 unit SC AC [facility] Last Admin: 06/12/17 12:53 Dose: Not Given Insulin Glargine (Lantus) 10 unit SC HS [facility] Last Admin: 06/11/17 21:45 Dose: 10 units Labetalol HCl (Trandate) 100 mg PO BID [facility] Last Admin: 06/12/17 10:02 Dose: 100 mg Pantoprazole Sodium (Protonix Ec Tab) 40 mg PO DAILY [facility] Last Admin: 06/12/17 10:02 Dose: 40 mg Saccharomyces Boulardii (Florastor) 250 mg PO DAILY [facility] Last Admin: 06/12/17 10:02 Dose: 250 mg - Labs Labs: 06/12/17 07:34 06/12/17 07:34 PT 15.2 SECONDS (9.7-12.2) H 06/10/17 07:39 INR 1.3 06/10/17 07:39 APTT 33 SECONDS (21-34) 06/10/17 07:39
--- NOTE | 2017-06-12 14:38 | PN ---
DATE: LOCATION: [facility], bed A. SUBJECTIVE: This is an 86-year-old female in a state of DNR and DNI, seen in rounds early today without significant clinical changes or reported active bleeding with period of hypoglycemia. No reported chest pain, palpitation or significant increase of her previously reported shortness of breath. The entire chart is reviewed including but not limited to most recent lab and radiology study results, current and the previous medication list, current and the previous medical events, and today's lab showed normal CBC, but low sodium of 130, increased BUN is 23 with low creatinine of 0.6, with reported blood glucose level of 108 with low calcium 7.3, low magnesium 1.5 with low albumin 1.9, low total protein 4.5. PHYSICAL EXAMINATION: GENERAL: An 86-year-old female. VITAL SIGNS: Afebrile with pulse of 72, respiratory rate 20-22 with blood pressure of 114/62. HEENT: Showed pale dry oral mucous membrane. Nonicteric sclerae. LUNGS: Few scattered crepitation. Decreased air entry at bases. HEART: Positive S1 and S2. ABDOMEN: Soft. Colostomy opening is clean, covered with clean dressing without reported active bleeding. No mass or organomegaly. EXTREMITIES: Lower extremities mild edematous changes. No clubbing or cyanosis. NEUROLOGIC: No reported new neurological deficits, sensory or motor. No reported focal new deficits. Peripheral pulses are present bilaterally, but weak. IMPRESSION: 1. 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 2. Status post exploratory laparotomy with diverting colostomy. 3. Peptic ulcer disease. 4. Recent history of pneumonia and pleural effusion. 5. Anemia secondary to above. 6. Hyperlipidemia with known history of diabetes mellitus. 7. Malnutrition with hypoalbuminemia. SUGGESTIONS: 1. Agree with your plan. 2. Correct any underlying electrolyte imbalance. 3. Albumin IV. 4. Further recommendation to follow. Sp Leblanc MD
--- NOTE | 2017-06-12 17:05 | PN ---
DATE: SUBJECTIVE: The patient was seen today after the weekend and she was in the [facility] triage. She has not been eating much. She said she felt very weak and wanted to sleep. PHYSICAL EXAMINATION: VITAL SIGNS: Her T-max was 97.7, pulse 73, blood pressure 122/65, respirations are 20. HEENT: Head is atraumatic, normocephalic. NECK: Supple. LUNGS: Clear. No crackles or rales present. HEART: S1 and S2 are regular. ABDOMEN: Remains soft with surgical sutures. Her colostomy was there, but not much in it. On the right side, she had a DARRYL drain, which has very clear watery serous fluid. EXTREMITIES: Remains with bilateral extensive edema. LABORATORY DATA: White count is 10.3 today, hemoglobin 11.8, hematocrit 34.7, platelet count is 319. BUN is 23, creatinine 0.6. ASSESSMENT AND PLAN: Her white count has come down; however, I am not sure what the plan is for the colostomy that needs to be followed up with Dr. Richard and at this time I would leave the antibiotics and she has nonoperable malignancy and had a colostomy done and is on Diflucan as well as Tygacil at this time. We will follow. Liborio Maravilla MD
--- NOTE | 2017-06-12 19:01 | CP.PCM.PN ---
Subjective - Date & Time of Evaluation Date of Evaluation: 06/12/17 Time of Evaluation: 13:00 - Subjective Subjective: Patient tolerating diet; denies sob; Objective - Vital Signs/Intake and Output Vital Signs (last 24 hours): Temp Pulse Resp BP Pulse Ox 97.9 F 20 L 96 H 104/65 96 06/12/17 16:47 06/12/17 16:47 06/12/17 16:47 06/12/17 16:47 06/12/17 16:47 Intake and Output: 06/12/17 06/13/17 18:59 06:59 Intake Total 600 Output Total 785 Balance -185 - Medications Medications: Current Medications Acetaminophen (Tylenol 650mg/20.3ml Solution Ud) 650 mg PO Q4H PRN PRN Reason: Pain, moderate (4-7) Calcium Carbonate (Oscal) 500 mg PO BID [facility] Last Admin: 06/12/17 17:40 Dose: 500 mg Dextrose (Dextrose 50% Inj) 0 ml IV STAT PRN; Protocol PRN Reason: Hypoglycemia Protocol Dextrose (Glutose 15) 0 gm PO ONCE PRN; Protocol PRN Reason: Hypoglycemia Protocol Diltiazem HCl (Cardizem Cd) 120 mg PO DAILY [facility] Last Admin: 06/12/17 10:02 Dose: 120 mg Ergocalciferol (Drisdol 50,000 Intl Units Cap) 1 cap PO Q7D [facility] Stop: 07/20/17 06:15 Last Admin: 06/08/17 06:00 Dose: Not Given Furosemide (Lasix) 20 mg PO BID [facility] Last Admin: 06/09/17 17:20 Dose: 20 mg Glucagon (Glucagen Diagnostic Kit) 0 mg IM STAT PRN; Protocol PRN Reason: Hypoglycemia Protocol Fluconazole (Diflucan Iv 100 Mg/50 Ml Ns) 50 mls @ 50 mls/hr IVPB DAILY [facility] Last Admin: 06/12/17 10:10 Dose: 50 mls/hr Tigecycline 50 mg/ Sodium (Chloride) 100 mls @ 100 mls/hr IVPB Q12H [facility] Last Admin: 06/12/17 18:21 Dose: 100 mls/hr Dextrose (Dextrose 5% In Water 1000 Ml) 1,000 mls @ 0 mls/hr IV .Q0M PRN; Protocol; Per Protocol PRN Reason: Hypoglycemia Protocol Insulin Aspart (Novolog) 0 unit SC ACHS [facility] PRN Reason: Protocol Last Admin: 06/12/17 16:38 Dose: 2 unit Insulin Aspart (Novolog) 3 unit SC AC [facility] Last Admin: 06/12/17 16:37 Dose: 3 unit Insulin Glargine (Lantus) 10 unit SC HS [facility] Last Admin: 06/11/17 21:45 Dose: 10 units Labetalol HCl (Trandate) 100 mg PO BID [facility] Last Admin: 06/12/17 17:40 Dose: 100 mg Pantoprazole Sodium (Protonix Ec Tab) 40 mg PO DAILY [facility] Last Admin: 06/12/17 10:02 Dose: 40 mg Saccharomyces Boulardii (Florastor) 250 mg PO DAILY [facility] Last Admin: 06/12/17 10:02 Dose: 250 mg - Labs Labs: 06/12/17 07:34 06/12/17 07:34 PT 15.2 SECONDS (9.7-12.2) H 06/10/17 07:39 INR 1.3 06/10/17 07:39 APTT 33 SECONDS (21-34) 06/10/17 07:39 - Constitutional Appears: Non-toxic, No Acute Distress - Eye Exam Eye Exam: absent: Scleral icterus - ENT Exam ENT Exam: Mucous Membranes Moist - Respiratory Exam Respiratory Exam: Clear to Ausculation Bilateral. absent: Respiratory Distress - Cardiovascular Exam Cardiovascular Exam: RRR, +S1, +S2 - GI/Abdominal Exam GI & Abdominal Exam: Soft. absent: Distended, Tenderness - Extremities Exam Additional comments: markedly edematous b/l legs; - Neurological Exam Neurological Exam: Alert, Awake - Psychiatric Exam Psychiatric exam: absent: Agitated - Skin Skin Exam: Warm. absent: Cyanosis Assessment and Plan (1) Hyponatremia Assessment & Plan: Serum Na decreasing slowly off loop diuretics; need to continue with 1L PO fluid restriction daily; will restart lasix 20 mg daily from tomorrow; Status: Acute (2) Hypokalemia Assessment & Plan: Resolved; monitor once diuretics restarted; Status: Acute (3) Hypertension Assessment & Plan: BP controlled on cardizem and labetalol, continue same; Status: Acute (4) Proteinuria Status: Acute (5) Hypocalcemia Status: Acute (6) Edema Assessment & Plan: Markedly hypoalbuminemic, being given dose of IV albumin 12.5 g by primary team (will give 25% solution rather than 5% to avoid excess sodium load); Status: Acute
--- NOTE | 2017-06-12 21:19 | CP.PCM.PN ---
Subjective - Date & Time of Evaluation Date of Evaluation: 06/10/17 Time of Evaluation: 17:00 - Subjective Subjective: Feels weak, trying to eat more Objective - Vital Signs/Intake and Output Vital Signs (last 24 hours): Temp Pulse Resp BP Pulse Ox 97.9 F 20 L 96 H 104/65 96 06/12/17 16:47 06/12/17 16:47 06/12/17 16:47 06/12/17 16:47 06/12/17 16:47 Intake and Output: 06/12/17 06/13/17 18:59 06:59 Intake Total 600 Output Total 785 Balance -185 - Medications Medications: Current Medications Acetaminophen (Tylenol 650mg/20.3ml Solution Ud) 650 mg PO Q4H PRN PRN Reason: Pain, moderate (4-7) Calcium Carbonate (Oscal) 500 mg PO BID [facility] Last Admin: 06/12/17 17:40 Dose: 500 mg Dextrose (Dextrose 50% Inj) 0 ml IV STAT PRN; Protocol PRN Reason: Hypoglycemia Protocol Dextrose (Glutose 15) 0 gm PO ONCE PRN; Protocol PRN Reason: Hypoglycemia Protocol Diltiazem HCl (Cardizem Cd) 120 mg PO DAILY [facility] Last Admin: 06/12/17 10:02 Dose: 120 mg Ergocalciferol (Drisdol 50,000 Intl Units Cap) 1 cap PO Q7D [facility] Stop: 07/20/17 06:15 Last Admin: 06/08/17 06:00 Dose: Not Given Furosemide (Lasix) 20 mg PO BID [facility] Last Admin: 06/09/17 17:20 Dose: 20 mg Glucagon (Glucagen Diagnostic Kit) 0 mg IM STAT PRN; Protocol PRN Reason: Hypoglycemia Protocol Fluconazole (Diflucan Iv 100 Mg/50 Ml Ns) 50 mls @ 50 mls/hr IVPB DAILY [facility] Last Admin: 06/12/17 10:10 Dose: 50 mls/hr Tigecycline 50 mg/ Sodium (Chloride) 100 mls @ 100 mls/hr IVPB Q12H [facility] Last Admin: 06/12/17 18:21 Dose: 100 mls/hr Dextrose (Dextrose 5% In Water 1000 Ml) 1,000 mls @ 0 mls/hr IV .Q0M PRN; Protocol; Per Protocol PRN Reason: Hypoglycemia Protocol Insulin Aspart (Novolog) 0 unit SC ACHS [facility] PRN Reason: Protocol Last Admin: 06/12/17 16:38 Dose: 2 unit Insulin Aspart (Novolog) 3 unit SC AC [facility] Last Admin: 06/12/17 16:37 Dose: 3 unit Insulin Glargine (Lantus) 10 unit SC HS [facility] Last Admin: 06/11/17 21:45 Dose: 10 units Labetalol HCl (Trandate) 100 mg PO BID [facility] Last Admin: 06/12/17 17:40 Dose: 100 mg Pantoprazole Sodium (Protonix Ec Tab) 40 mg PO DAILY [facility] Last Admin: 06/12/17 10:02 Dose: 40 mg Saccharomyces Boulardii (Florastor) 250 mg PO DAILY [facility] Last Admin: 06/12/17 10:02 Dose: 250 mg - Labs Labs: 06/12/17 07:34 06/12/17 07:34 PT 15.2 SECONDS (9.7-12.2) H 06/10/17 07:39 INR 1.3 06/10/17 07:39 APTT 33 SECONDS (21-34) 06/10/17 07:39 - Head Exam Head Exam: ATRAUMATIC - Eye Exam Eye Exam: Normal appearance - ENT Exam ENT Exam: Mucous Membranes Dry - Respiratory Exam Respiratory Exam: NORMAL BREATHING PATTERN - Cardiovascular Exam Cardiovascular Exam: +S1, +S2 - GI/Abdominal Exam GI & Abdominal Exam: Normal Bowel Sounds - Extremities Exam Extremities Exam: Pedal Edema Assessment and Plan (1) Colon adenocarcinoma Assessment & Plan: stage IV outpatient treatment Status: Acute (2) Anemia Status: Acute (3) Coagulopathy Status: Acute
--- NOTE | 2017-06-12 21:23 | CP.PCM.PN ---
Subjective - Date & Time of Evaluation Date of Evaluation: 06/12/17 Time of Evaluation: 19:00 - Subjective Subjective: Trying to eat more Objective - Vital Signs/Intake and Output Vital Signs (last 24 hours): Temp Pulse Resp BP Pulse Ox 97.9 F 20 L 96 H 104/65 96 06/12/17 16:47 06/12/17 16:47 06/12/17 16:47 06/12/17 16:47 06/12/17 16:47 Intake and Output: 06/12/17 06/13/17 18:59 06:59 Intake Total 600 Output Total 785 Balance -185 - Medications Medications: Current Medications Acetaminophen (Tylenol 650mg/20.3ml Solution Ud) 650 mg PO Q4H PRN PRN Reason: Pain, moderate (4-7) Calcium Carbonate (Oscal) 500 mg PO BID [facility] Last Admin: 06/12/17 17:40 Dose: 500 mg Dextrose (Dextrose 50% Inj) 0 ml IV STAT PRN; Protocol PRN Reason: Hypoglycemia Protocol Dextrose (Glutose 15) 0 gm PO ONCE PRN; Protocol PRN Reason: Hypoglycemia Protocol Diltiazem HCl (Cardizem Cd) 120 mg PO DAILY [facility] Last Admin: 06/12/17 10:02 Dose: 120 mg Ergocalciferol (Drisdol 50,000 Intl Units Cap) 1 cap PO Q7D [facility] Stop: 07/20/17 06:15 Last Admin: 06/08/17 06:00 Dose: Not Given Furosemide (Lasix) 20 mg PO BID [facility] Last Admin: 06/09/17 17:20 Dose: 20 mg Glucagon (Glucagen Diagnostic Kit) 0 mg IM STAT PRN; Protocol PRN Reason: Hypoglycemia Protocol Fluconazole (Diflucan Iv 100 Mg/50 Ml Ns) 50 mls @ 50 mls/hr IVPB DAILY [facility] Last Admin: 06/12/17 10:10 Dose: 50 mls/hr Tigecycline 50 mg/ Sodium (Chloride) 100 mls @ 100 mls/hr IVPB Q12H [facility] Last Admin: 06/12/17 18:21 Dose: 100 mls/hr Dextrose (Dextrose 5% In Water 1000 Ml) 1,000 mls @ 0 mls/hr IV .Q0M PRN; Protocol; Per Protocol PRN Reason: Hypoglycemia Protocol Insulin Aspart (Novolog) 0 unit SC ACHS [facility] PRN Reason: Protocol Last Admin: 06/12/17 16:38 Dose: 2 unit Insulin Aspart (Novolog) 3 unit SC AC [facility] Last Admin: 06/12/17 16:37 Dose: 3 unit Insulin Glargine (Lantus) 10 unit SC HS [facility] Last Admin: 06/11/17 21:45 Dose: 10 units Labetalol HCl (Trandate) 100 mg PO BID [facility] Last Admin: 06/12/17 17:40 Dose: 100 mg Pantoprazole Sodium (Protonix Ec Tab) 40 mg PO DAILY [facility] Last Admin: 06/12/17 10:02 Dose: 40 mg Saccharomyces Boulardii (Florastor) 250 mg PO DAILY [facility] Last Admin: 06/12/17 10:02 Dose: 250 mg - Labs Labs: 06/12/17 07:34 06/12/17 07:34 PT 15.2 SECONDS (9.7-12.2) H 06/10/17 07:39 INR 1.3 06/10/17 07:39 APTT 33 SECONDS (21-34) 06/10/17 07:39 - Head Exam Head Exam: ATRAUMATIC - Eye Exam Eye Exam: Normal appearance - ENT Exam ENT Exam: Mucous Membranes Dry - Respiratory Exam Respiratory Exam: NORMAL BREATHING PATTERN - Cardiovascular Exam Cardiovascular Exam: +S1, +S2 - GI/Abdominal Exam GI & Abdominal Exam: Normal Bowel Sounds - Extremities Exam Extremities Exam: Pedal Edema Assessment and Plan (1) Colon adenocarcinoma Assessment & Plan: stage IV outpatient treatment Status: Acute (2) Anemia Status: Acute (3) Coagulopathy Status: Acute
[2017-06-12] MEDS: (Lantus) Insulin Glargine, Recombinant SC SCH (21:34)
[2017-06-12 23:53] VITALS: RESP 20
--- NOTE | 2017-06-13 07:22 | CP.PCM.PN ---
<LachoMegha BrandonYin - Last Filed: 06/13/17 18:29> Subjective - Date & Time of Evaluation Date of Evaluation: 06/13/17 Time of Evaluation: 07:00 - Subjective Subjective: Medicine Progress Note: Patient was seen and examined at bedside. Patient states she slept off and on last night. She states she is eating a little, she states she ate some oatmeal in the morning. Patient denies nausea, vomiting, shortness of breath or fever. Objective - Vital Signs/Intake and Output Vital Signs (last 24 hours): Temp Pulse Resp BP Pulse Ox 97.4 F L 72 20 119/72 97 06/12/17 23:47 06/12/17 23:47 06/12/17 23:47 06/12/17 23:47 06/12/17 23:47 Intake and Output: 06/13/17 06/13/17 06:59 18:59 Intake Total 100 Output Total 810 Balance -710 - Medications Medications: Current Medications Acetaminophen (Tylenol 650mg/20.3ml Solution Ud) 650 mg PO Q4H PRN PRN Reason: Pain, moderate (4-7) Calcium Carbonate (Oscal) 500 mg PO BID [facility] Last Admin: 06/12/17 17:40 Dose: 500 mg Dextrose (Dextrose 50% Inj) 0 ml IV STAT PRN; Protocol PRN Reason: Hypoglycemia Protocol Dextrose (Glutose 15) 0 gm PO ONCE PRN; Protocol PRN Reason: Hypoglycemia Protocol Diltiazem HCl (Cardizem Cd) 120 mg PO DAILY [facility] Last Admin: 06/12/17 10:02 Dose: 120 mg Ergocalciferol (Drisdol 50,000 Intl Units Cap) 1 cap PO Q7D [facility] Stop: 07/20/17 06:15 Last Admin: 06/08/17 06:00 Dose: Not Given Furosemide (Lasix) 20 mg PO DAILY [facility] Glucagon (Glucagen Diagnostic Kit) 0 mg IM STAT PRN; Protocol PRN Reason: Hypoglycemia Protocol Fluconazole (Diflucan Iv 100 Mg/50 Ml Ns) 50 mls @ 50 mls/hr IVPB DAILY [facility] Last Admin: 06/12/17 10:10 Dose: 50 mls/hr Tigecycline 50 mg/ Sodium (Chloride) 100 mls @ 100 mls/hr IVPB Q12H [facility] Last Admin: 06/13/17 06:29 Dose: 100 mls/hr Dextrose (Dextrose 5% In Water 1000 Ml) 1,000 mls @ 0 mls/hr IV .Q0M PRN; Protocol; Per Protocol PRN Reason: Hypoglycemia Protocol Insulin Aspart (Novolog) 0 unit SC ACHS [facility] PRN Reason: Protocol Last Admin: 06/12/17 21:28 Dose: Not Given Insulin Aspart (Novolog) 3 unit SC AC [facility] Last Admin: 06/12/17 16:37 Dose: 3 unit Insulin Glargine (Lantus) 10 unit SC HS [facility] Last Admin: 06/12/17 21:34 Dose: 10 units Labetalol HCl (Trandate) 100 mg PO BID [facility] Last Admin: 06/12/17 17:40 Dose: 100 mg Pantoprazole Sodium (Protonix Ec Tab) 40 mg PO DAILY [facility] Last Admin: 06/12/17 10:02 Dose: 40 mg Saccharomyces Boulardii (Florastor) 250 mg PO DAILY [facility] Last Admin: 06/12/17 10:02 Dose: 250 mg - Labs Labs: 06/12/17 07:34 06/12/17 07:34 PT 15.2 SECONDS (9.7-12.2) H 06/10/17 07:39 INR 1.3 06/10/17 07:39 APTT 33 SECONDS (21-34) 06/10/17 07:39 - Constitutional Appears: No Acute Distress, Chronically Ill - Head Exam Head Exam: ATRAUMATIC, NORMAL INSPECTION - Eye Exam Eye Exam: EOMI, Normal appearance - ENT Exam ENT Exam: Mucous Membranes Moist - Respiratory Exam Respiratory Exam: Clear to Ausculation Bilateral, NORMAL BREATHING PATTERN - Cardiovascular Exam Cardiovascular Exam: REGULAR RHYTHM, +S1, +S2 - GI/Abdominal Exam GI & Abdominal Exam: Soft, Tenderness, Normal Bowel Sounds Additional comments: stool in colostomy bag - clean/dry/intact - Extremities Exam Extremities Exam: Joint Swelling, Pedal Edema. absent: Tenderness Additional comments: upper and lower bilateral extremities edematous - Neurological Exam Neurological Exam: Alert, Awake, Oriented x3 - Psychiatric Exam Psychiatric exam: Flat Affect - Skin Skin Exam: Dry, Intact, Normal Color, Warm Assessment and Plan - Assessment and Plan (Free Text) Assessment: 1). Sigmoid colon mass/Liver lesion likely mets/Weight loss and abdominal pain * CT-Abd/Pelvis on admission showed 8.6 cm sigmoid mass with extensive hepatic metastasis. Bilateral renal cysts with large right upper pole renal cyst. Small bilateral pleural effusion and small pericardial effusion. Small hiatal hernia. Possible small diverticulum of the herniated stomach * Repeat Abd/Pel CT (05/30): no ureteral injury; bulk tumor in pelvis and hepatic mets disease; increasing pleural effusion in consolidative changes at the lung base; stable pericardial effusion; severe post-op anasarca. * CEA elevated @ 11.6. (Normal = 0-3.0) * Colonscopy (05/22/17): Non-bleeding external and internal hemorrhoids. 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 At the level of the distal sigmoid colon, contrast slowly traversed through a very thin and irregular channel to the level of the mid sigmoid at the site of the known sigmoid carcinoma. Contrast did not flow freely past this level. Exam was subsequently terminated. These findings were concerning for a near complete obstruction of the bowel lumen from the adjacent obstructing tumor. * Clear ensure ordered and Clear liquid diet started. * Venous dopplers UE&LE b/l ordered due to edema and cancer: f/u results * Calorie count and monitoring Consults * GI consult Dr Foster ,appreciated * recommends peripheral hyperalimentation * Started PPN on 06/01/17 with electrolytes - PPN stopped 06/02 due to elevated glucose - Dietary Consult --> help appreciated * Dr Bright oncology consult - Recs appreciated * suggests consulting IR for FNA biopsy of liver lesions to obtain diagnosis * Surgery consult Dr Richard-appreciated * 05/25/17: Patient underwent laparotomy with diverting colostomy and liver biopsy. She was found to have the colonic mass invading the bladder and therefore was not entirely resectable * Liver Biopsy: necrotic tissue * NGT removed on 05/29/17 * Discontinued naqvi 05/31 * Patient scheduled for osteomy revision on 06/06/17 was canceled per surgery due to hyponatremia * Stoma revision completed 06/10/17 . 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 Sepsis * leukocytosis, bandemia * procalcitonin trending down: 4.15 --> 1.82--> 0.78 * Blood cx (05/28): no growth; urine cx: no growth * Peritoneal fluid stain: negative * Repeat blood cultures (05/29/17): negative * UA: 1+ protein, 1+ blood, 1+ LE, WBC29, RBC32, Occ bacteria * ID consulted: Dr. Maravilla --> help appreciated * Meropenem 1gm IV Q12 discontinued * Vanco 750mg IV Q24 discontinued * Discontinued Flagyl 500mg IV Q8h (started 05/30/17) * CXR (06/01): moderate left, small right pleural effusion; moderate venous congestions; confluent opacities in left mid to lower and right mid to lower lung; cardiomegaly * Urine Culture: Yeast species * Fluconazole 100mg po daily started 06/08 * f/u repeat culture 05/15/17 * f/u stool culture, c diff, ova and parasite, stool leukocytes * DARRYL drain cx: VRE + * Tigecycline 100 mg IV x 1 dose 06/08/17 then 50 mg IV Q12H starting 06/09/17 * f/u repeat culture 05/16/17 3). DM 2 * Aspart ISS Q6H Low Dose * Accuchecks -moderate * Lantus 20 units HS (increased from 10 units on 06/03) * Novolog 3 units SCqAC * A1c: 8.4 4). Hypertension * Labetolol 100mg Q12H, Enalapril 15 mg Daily, and Cardizem [id number] Daily 5) Acute Anemia - Type and Screen - 2 units of PRBC to be given 06/08/17 - Tylenol 650mg to be given 30 minutes before each blood transfusion - Benadryl 25mg to be given 30 minutes before each blood transfusion - Lasix 10mg to be given 30 minutes before each blood transfusion - s/p transfusion of 2 units hemaglobin 12.3 * Continue to monitor 6). Pericardial effusion/cardiomegaly * Cardiology Consulted (Dr. Portillo) - help appreciated * as per Dr. Portillo, continue medical therapy; effusion is small; LV function is normal * ECHO (05/20/17): Diastolic Dysfunction Grade I-abnormal relaxation pattern, Trace TR and MR 7). Bilateral Renal Cysts * U/S Renal 05/26/17: Right Upper Pole renal cyst measures approximately 10.4x8.3x9.2 cm. Left upper pole renal cyst measures 2.2x1.4x1.6 cm * Will need follow up U/S in 6 months 8). Respiratory Acidosis * Patient was extubated on 05/26/17 and placed on BiPap and Bicarb Drip * Patient no longer on BiPap or bicarb drip 9). Pleural Effusion * CXR (06/01): moderate left, small right pleural effusion; moderate venous congestions; confluent opacities in left mid to lower and right mid to lower lung; cardiomegaly * Chest CT: moderate b/l pleural effusion with b/l lower lobe segmental/ subsegmental atelectasis; cardiomegaly with small pericardial effusion; probably widespread hepatic metastasis. * Continue Duonebs Q4 * Pulmonology consulted, Dr. Cherry, help appreciated * IR consulted for therapeutic thoracentesis for pleural effusions; as per IR, US showed small pleural effusions not amenable to thoracentisis. 10.) Hypervolemic Hyponatremia - likely secondary to SIADH - Nephrology Consult: Dr. Lennon --> help appreciated - Urine sodium 43 - Urine Osmolality 563 - 1.5L of fluid restriction - Lasix 20mg Po daily - Tolvaptan 15mg po x1 dose 06/08/17 11.) Hypocalcemia /Hypokalemia - Repleted. Will monitor with serial CMP's. 12.) IV Access - Consent was done with POA 13.) Hypoalbuminemia - 25% Albumin 12.5gm IV once 14.). DVT and GI prophylaxis * Heparin 5000sc Q8- HOLD * Dilaudid 0.5 mg IV Q4H PRN Severe Pain * Protonix 40 mg IV Q12H * PT/OT * Incentive spirometry * Palliative care: patient is DNR/DNI as of 05/29/17. Polst form completed. * Diet: Diabetic diet * Started PPN Son Dominick Mckoy ([phone]) Nializa FerrariLucretiaecho Prabhakar ([phone]) as POA/Health Care Proxy Disposition: [facility] accepted to [facility] Pending repeat 06/15/17 urine and drain cultures to be negative. Case discussed with Dr. Isael Monk PGY-1 <Mamta Kirkland V - Last Filed: 06/15/17 07:35> Objective - Vital Signs/Intake and Output Vital Signs (last 24 hours): Temp Pulse Resp BP Pulse Ox 97.4 F L 62 20 134/72 98 06/14/17 23:25 06/14/17 23:25 06/14/17 23:25 06/14/17 23:25 06/14/17 23:25 Intake and Output: 06/15/17 06/15/17 06:59 18:59 Intake Total 336 Output Total 1340 Balance -1004 - Medications Medications: Current Medications Acetaminophen (Tylenol 650mg/20.3ml Solution Ud) 650 mg PO Q4H PRN PRN Reason: Pain, moderate (4-7) Last Admin: 06/14/17 17:40 Dose: 650 mg Calcium Carbonate (Oscal) 500 mg PO BID [facility] Last Admin: 06/14/17 17:38 Dose: 500 mg Dextrose (Dextrose 50% Inj) 0 ml IV STAT PRN; Protocol PRN Reason: Hypoglycemia Protocol Dextrose (Glutose 15) 0 gm PO ONCE PRN; Protocol PRN Reason: Hypoglycemia Protocol Diltiazem HCl (Cardizem Cd) 120 mg PO DAILY [facility] Last Admin: 06/14/17 10:14 Dose: 120 mg Ergocalciferol (Drisdol 50,000 Intl Units Cap) 1 cap PO Q7D [facility] Stop: 07/20/17 06:15 Last Admin: 06/15/17 05:48 Dose: 1 cap Furosemide (Lasix) 20 mg PO BID [facility] Last Admin: 06/14/17 17:39 Dose: 20 mg Glucagon (Glucagen Diagnostic Kit) 0 mg IM STAT PRN; Protocol PRN Reason: Hypoglycemia Protocol Fluconazole (Diflucan Iv 100 Mg/50 Ml Ns) 50 mls @ 50 mls/hr IVPB DAILY [facility] Last Admin: 06/14/17 10:14 Dose: 50 mls/hr Tigecycline 50 mg/ Sodium (Chloride) 100 mls @ 100 mls/hr IVPB Q12H [facility] Last Admin: 06/15/17 06:26 Dose: 100 mls/hr Multivitamins/Vitamin C 10 ml/Chromium/Copper/Manganese/Zinc 1 ml/ Amino Acids 1,011 mls @ 42 mls/hr IV .Q24H [facility] Last Admin: 06/13/17 18:11 Dose: 42 mls/hr Fat Emulsion Intravenous (Intralipid 20%) 500 mls @ 42 mls/hr IV TTS [facility] Last Admin: 06/13/17 18:11 Dose: 42 mls/hr Multivitamins/Vitamin C 10 ml/Chromium/Copper/Manganese/Zinc 1 ml/ Amino Acids 1,011 mls @ 42 mls/hr IV .Q24H ONE Stop: 06/15/17 17:59 Last Admin: 06/14/17 17:39 Dose: 42 mls/hr Insulin Aspart (Novolog) 0 unit SC ACHS [facility] PRN Reason: Protocol Last Admin: 06/14/17 22:13 Dose: Not Given Insulin Aspart (Novolog) 3 unit SC AC [facility] Last Admin: 06/14/17 17:38 Dose: 3 unit Insulin Glargine (Lantus) 10 unit SC HS [facility] Last Admin: 06/14/17 22:16 Dose: 10 units Labetalol HCl (Trandate) 100 mg PO BID [facility] Last Admin: 06/14/17 17:42 Dose: Not Given Pantoprazole Sodium (Protonix Ec Tab) 40 mg PO DAILY [facility] Last Admin: 06/14/17 10:14 Dose: 40 mg Saccharomyces Boulardii (Florastor) 250 mg PO DAILY [facility] Last Admin: 06/14/17 10:14 Dose: 250 mg - Labs Labs: 06/14/17 06:55 06/14/17 06:55 PT 15.2 SECONDS (9.7-12.2) H 06/10/17 07:39 INR 1.3 06/10/17 07:39 APTT 33 SECONDS (21-34) 06/10/17 07:39 Attending/Attestation - Attestation I have personally seen and examined this patient.: Yes I have fully participated in the care of the patient.: Yes I have reviewed all pertinent clinical information, including history, physical exam and plan: Yes Notes (Text): This is late computer entry for 06/13/17. Patient seen, examined, and case discussed with day-time resident. Patient is currently on the 5th Floor in contact isolation for VRE+ from Peg Drains. Patient is currently on Tigecycline IV. Patient underwent revision of colostomy on 06/10/17, postoperative day 3. Patient encouraged to eat. Patient at breakfast only ate minimal oatmeal and cereal. Patient to start PPN today given malnutrition. Patient reports she is eating. Patient seen in the morning. Patient has some questionable bloody diarrhea. Stool samples were collected. I discussed with surgery resident, Ad, reports this can be expected given necrotic mass. Patient had a second episode later in episode. Advised nursing staff for bedside commode. Patient to have reculture of urine and DARRYL Drains later this week to determine if needs IV Abx on discharge or not. Assessment/Plan 1). Sigmoid Colon Mass/Liver Metastasis: * General surgery (Dr. Richard) on board-->help appreciated * hematology-oncology (Dr. Brandon Bright) on board-->help appreciated * Patient underwent laparotomy with diverting colostomy and liver biopsy on 05/25. She was found to have the colonic mass invading the bladder and therefore was not entirely resectable * KRAS mutation testing ordered by Heme/Onc Dr. Angella Bright and then outpatient Chemotherapy. * Revision of Colostomy by Surgery Dr. Richard performed morning 06/10/17 * 06/13: Questionable bloody stool-->stool studies were collected. monitor H/H/ Discussed with surgery resident chief on case. 2). Hx Respiratory Acidosis 3). Sepsis * Infectious Disease (Dr. Maravilla) on board-->help appreciated * Urine Culture 05/30/17 shows NO growth * Urine Culture 06/04/17 showed Yeast and patient started on Fluconazole 100 mg PO 1x/day (06/08/17). Order repeat Urine Culture for 06/15/17. * Blood Culture 05/28/17 and 05/29/17 was negative at 5 days * Blood Culture 06/08/17 is negative to date * Peritoneal Fluid 05/30/17 showed NO growth * DARRYL Drain Culture x 1 06/04/17 showed VRE: Tigecycline 100 mg IV x 1 dose then 50 mg IV Q12H was started 06/09/17: DARRYL drains continue output clear yellow material. Repeat cultures set for 06/15/17 4). Hx DM 2 * Insulin was adjusted on evening 06/06/17 as Surgery was concerned about the blood glucose being in the high 200s. However due to this adjustment, patient had episode of hypoglycemia again on morning of 06/07/17. * Patient had another episode of hypoglycemia morning of 06/11/17. Because of this and until patient starts to eat a regular diet (she is currently on FULL LIQUID) her Lantus has bee reduced from 20 to 10 units starting at 10 PM . Continue premeal Aspart 3 Units SC. * Monitor nutrition and will need to adjust insulin if applicable 5). Hx HTN * Diltiazem CD 120 mg PO 1x/day * Labetolol 100 mg PO 2x/day 6). Anemia Likely Secondary To Chronic Disease/Colon CA * 2 Units of PRBC given 06/08/17 after PICC line placement: HgB/Hct are now stable * continue to monitor H/H 7). Pericardial Effusion/Cardiomegaly 8). Bilateral Renal Cysts 9). Leukocytosis Likely Secondary to Sepsis: see Assessment and Plan #3 * Leukocytosis has now resolved 10). Hypervolemic Hyponatremia * Nephrology Dr. Lennon help appreciated * Lasix 20 mg PO 2x/day was placed on HOLD by Nephrology 06/09/17 * NaCl 2 gm PO 3x/day was discontinued * Tolvaptan 15 mg PO x 1 dose 06/08/17: Na has normalized 11). Low Albumin * Likely secondary to recent surgery/poor intake * Albumin 12.5 gm x 4 doses finished on 06/07/17 * Given Albumin 12.5 gm on 06/12/17 given low albumin * Start PPN 06/13/17 12). Bilateral Pleural Effusion * As per CT Chest 06/02/17 * IR Dr. John attempted Thoracentesis but too small and not amenable to thoracentesis 13). Bilateral UE and LE Edema * Bilateral UE Doppler 06/03/17: Superficial Thrombosis Right Basilic Vein and NO DVT * Bilateral LE Doppler 06/03/17: NO DVT 14). Hypocalcemia * Calcium Gluconate 2 gm IV given 06/08/17 after PICC line placement: when corrected for low albumin, Ca now has normalized * Calcium Carbonate 500 mg PO 2x/day 15). Low Vitamin D * Vitamin D 50,000 Units once a week for 8 weeks starting 06/08/17 16). Hypokalemia * Repleted via PO and IV 06/10/17 and 06/11/17 * monitor and replete if necessary 17). Hypomagnesemia * Resolved 18). Prophylaxis * Duoneb PRN * Tylenol 650mg PO Q 4H PRN pain * Heparin placed on HOLD in light of low HgB/Hct on 06/08/17 * Protonix 40mg PO daily * Florastor 250mg PO daily 06/07/17: two phlebotomists attempted to draw blood for CBC but not successful. Attempted to get PICC line for access however patient declined and wanted to be left alone and agreed to have placed on 06/08/17. 06/08/17: PICC Line placed. Surgery Dr. Richard holding off on revision of Colostomy for now until patient more medical stable. 06/09/17: Patient has been medically optimized for revision of Colostomy for morning 06/10/17. Surgery Team has been notified. 06/10/17: S/P revision of Colostomy. Spoke with ANAYELI Adorno who was at bedside and she was updated. 06/11/17: Incentive Spirometry encouraged 10x every hour. PT Evaluation and Treatment to get patient out of bed and moving ordered. 06/12/17: Encourage PO intake, Given Albumin. Continue IV abx for VRE and IV antifungal for yeast, repeat cultures later this week, f/u surgery POD 2 Will need to clarify with case management in regards to placement. 06/13/17: Encourage PO intake. Start PPN. Continue IV abx for VRE and IV antifungal for yeast. Repeat cultures for 06/15/17. Patient had questionable bloody bowel movements. Stool samples collected
[2017-06-13] MEDS: (Novolog) Insulin Aspart, Recombinant 100 u/ml 10 ml vial SC SCH ×7 (07:51→21:38)
[2017-06-13 08:41] LABS: BASO # 0.1 K/uL (0.0-0.2); BASO % 0.8 % (0.0-2.0); EOS # 0.1 K/uL (0.0-0.7); EOS % 0.8 % (0.0-4.0); HEMOGLOBIN 11.8 g/dL (11.0-16.0); LYMPH # 1.9 K/uL (1.0-4.3); MEAN CELL VOLUME 86.9 fL (81.0-99.0); MEAN CORPUSCULAR HEMOGLOBIN 29.7 pg (27.0-31.0); MEAN CORPUSCULAR HGB CONC 34.1 g/dL (33.0-37.0); MEAN PLATELET VOLUME 8.5 fL (7.2-11.7); MONO # 0.7 K/uL (0.0-0.8); MONO % 7.3 % (0.0-10.0); NEUT # 7.2 K/uL (1.8-7.0); NEUT % 72.1 % (50.0-75.0); NRBC % 0.1 % (0.0-2.0); RBC 3.97 Mil/uL (3.80-5.20)
--- NOTE | 2017-06-13 10:53 | CP.PCM.PN ---
Subjective - Date & Time of Evaluation Date of Evaluation: 06/13/17 Time of Evaluation: 10:47 - Subjective Subjective: General Surgery Progress Note for Dr. Richard This pt was seen and examined this Am at bedside no acute events overnight, pt with stool in stoma. No complaints, requesting diet. Objective - Vital Signs/Intake and Output Vital Signs (last 24 hours): Temp Pulse Resp BP Pulse Ox 97.2 F L 67 20 130/71 96 06/13/17 07:15 06/13/17 07:15 06/13/17 07:15 06/13/17 07:15 06/13/17 07:15 Intake and Output: 06/13/17 06/13/17 06:59 18:59 Intake Total 100 Output Total 810 Balance -710 - Medications Medications: Current Medications Acetaminophen (Tylenol 650mg/20.3ml Solution Ud) 650 mg PO Q4H PRN PRN Reason: Pain, moderate (4-7) Calcium Carbonate (Oscal) 500 mg PO BID [facility] Last Admin: 06/12/17 17:40 Dose: 500 mg Dextrose (Dextrose 50% Inj) 0 ml IV STAT PRN; Protocol PRN Reason: Hypoglycemia Protocol Dextrose (Glutose 15) 0 gm PO ONCE PRN; Protocol PRN Reason: Hypoglycemia Protocol Diltiazem HCl (Cardizem Cd) 120 mg PO DAILY [facility] Last Admin: 06/12/17 10:02 Dose: 120 mg Ergocalciferol (Drisdol 50,000 Intl Units Cap) 1 cap PO Q7D [facility] Stop: 07/20/17 06:15 Last Admin: 06/08/17 06:00 Dose: Not Given Furosemide (Lasix) 20 mg PO DAILY [facility] Glucagon (Glucagen Diagnostic Kit) 0 mg IM STAT PRN; Protocol PRN Reason: Hypoglycemia Protocol Fluconazole (Diflucan Iv 100 Mg/50 Ml Ns) 50 mls @ 50 mls/hr IVPB DAILY [facility] Last Admin: 06/12/17 10:10 Dose: 50 mls/hr Tigecycline 50 mg/ Sodium (Chloride) 100 mls @ 100 mls/hr IVPB Q12H [facility] Last Admin: 06/13/17 06:29 Dose: 100 mls/hr Dextrose (Dextrose 5% In Water 1000 Ml) 1,000 mls @ 0 mls/hr IV .Q0M PRN; Protocol; Per Protocol PRN Reason: Hypoglycemia Protocol Insulin Aspart (Novolog) 0 unit SC ACHS [facility] PRN Reason: Protocol Last Admin: 06/13/17 07:51 Dose: Not Given Insulin Aspart (Novolog) 3 unit SC AC [facility] Last Admin: 06/13/17 07:51 Dose: Not Given Insulin Glargine (Lantus) 10 unit SC HS [facility] Last Admin: 06/12/17 21:34 Dose: 10 units Labetalol HCl (Trandate) 100 mg PO BID [facility] Last Admin: 06/12/17 17:40 Dose: 100 mg Pantoprazole Sodium (Protonix Ec Tab) 40 mg PO DAILY [facility] Last Admin: 06/12/17 10:02 Dose: 40 mg Saccharomyces Boulardii (Florastor) 250 mg PO DAILY [facility] Last Admin: 06/12/17 10:02 Dose: 250 mg - Labs Labs: 06/13/17 08:26 06/12/17 07:34 PT 15.2 SECONDS (9.7-12.2) H 06/10/17 07:39 INR 1.3 06/10/17 07:39 APTT 33 SECONDS (21-34) 06/10/17 07:39 - Constitutional Appears: Non-toxic, No Acute Distress - Head Exam Head Exam: ATRAUMATIC, NORMOCEPHALIC - Eye Exam Eye Exam: EOMI, Normal appearance - ENT Exam ENT Exam: Mucous Membranes Moist, Normal Exam - Respiratory Exam Respiratory Exam: NORMAL BREATHING PATTERN - Cardiovascular Exam Cardiovascular Exam: +S1, +S2 - GI/Abdominal Exam GI & Abdominal Exam: Soft. absent: Firm, Guarding, Rigid, Tenderness Additional comments: stoma patent with stool output - Neurological Exam Neurological Exam: Alert, Awake - Psychiatric Exam Psychiatric exam: Normal Affect, Normal Mood - Skin Skin Exam: Dry, Intact Assessment and Plan - Assessment and Plan (Free Text) Assessment: 86F s/p exploratory laparotomy w/diverting colostomy & liver biopsy POD#19 s/p colostomy revesion POD#3 Plan: Encourage IS use PT LFD BENNIE Azevedo PGY2
[2017-06-13] MEDS: diltiaZEM 120 mg/24 Hours CD Cap PO SCH (10:59)
[2017-06-13 11:00] LABS: ALB/GLOB RATIO 0.8 (1.0-2.1); ALT/SGPT 22 U/L (9-52); AST/SGOT 44 U/L (14-36); BLOOD UREA NITROGEN 22 mg/dL (7-17); CALCIUM 7.4 mg/dl (8.6-10.4); GFR AFRICAN-AMERICAN > 60; GFR NON-AFRICAN AMERICAN > 60; MAGNESIUM 1.7 mg/dL (1.6-2.3)
[2017-06-13] MEDS: Pantoprazole 40 mg EC Tab PO SCH (11:00)
[2017-06-13] MEDS: Fluconazole IV 100mg/50 ml NS 50 ML IVPB SCH (11:00)
[2017-06-13] MEDS: Saccharomyces Boulardi 250 mg Cap PO SCH (11:00)
--- NOTE | 2017-06-13 12:20 | PN ---
DATE: LOCATION: [facility], bed A. SUBJECTIVE: This is an 86-year-old female, seen and examined in rounds without significant reported clinical changes or active bleeding. The patient is still on a status of DNR and DNI and the most recent lab results as well as current and previous medication lists are reviewed. Case discussed with the staff at length as well as some family members. Today's lab showed normal CBC with blood glucose level reported to be 108. PHYSICAL EXAMINATION: GENERAL: An 86-year-old female. VITAL SIGNS: Afebrile with pulse of 70, respiratory rate 20 to 22, blood pressure of 120/74. HEENT: Showed mildly pale, dry oral mucous membrane. Nonicteric sclerae. LUNGS: Few scattered mild crepitation. Decreased air entry at bases. HEART: Positive S1 and S2. ABDOMEN: Soft with mild distention and mild generalized tenderness with clean dressing. Colostomy opening is in place and intact with traces of semi liquid, semi solid fecal material. EXTREMITIES: Evidence of muscle wasting syndrome. No clubbing or cyanosis. NEUROLOGIC: No new reported neurological deficits, sensory or motor. IMPRESSION: 1. Left-sided colon cancer with exploratory laparotomy and colostomy formation. 2. Metastatic disease to the liver, most likely from the colon cancer. 3. Peptic ulcer disease. 4. Recent history of pleural effusion with pneumonia. 5. Known history of diabetes mellitus, hyperlipidemia. 6. Anemia secondary to above. 7. Malnutrition with hyponatremia, improving hypoalbuminemia, improving gradually. 8. Hypocalcemia by recent history. SUGGESTION: 1. Agree with your plan. 2. Conservative treatment. 3. No aggressive further GI procedure in the meantime. Further recommendation to follow. Sp Leblanc MD
--- NOTE | 2017-06-13 14:08 | CP.PCM.PN ---
Subjective - Date & Time of Evaluation Date of Evaluation: 06/13/17 Time of Evaluation: 02:00 - Subjective Subjective: dictated Objective - Vital Signs/Intake and Output Vital Signs (last 24 hours): Temp Pulse Resp BP Pulse Ox 97.2 F L 69 20 150/80 96 06/13/17 07:15 06/13/17 10:49 06/13/17 07:15 06/13/17 10:59 06/13/17 07:15 Intake and Output: 06/13/17 06/13/17 06:59 18:59 Intake Total 100 Output Total 810 Balance -710 - Medications Medications: Current Medications Acetaminophen (Tylenol 650mg/20.3ml Solution Ud) 650 mg PO Q4H PRN PRN Reason: Pain, moderate (4-7) Calcium Carbonate (Oscal) 500 mg PO BID [facility] Last Admin: 06/13/17 11:00 Dose: 500 mg Dextrose (Dextrose 50% Inj) 0 ml IV STAT PRN; Protocol PRN Reason: Hypoglycemia Protocol Dextrose (Glutose 15) 0 gm PO ONCE PRN; Protocol PRN Reason: Hypoglycemia Protocol Diltiazem HCl (Cardizem Cd) 120 mg PO DAILY [facility] Last Admin: 06/13/17 10:59 Dose: 120 mg Ergocalciferol (Drisdol 50,000 Intl Units Cap) 1 cap PO Q7D [facility] Stop: 07/20/17 06:15 Last Admin: 06/08/17 06:00 Dose: Not Given Furosemide (Lasix) 20 mg PO DAILY [facility] Last Admin: 06/13/17 10:59 Dose: 20 mg Glucagon (Glucagen Diagnostic Kit) 0 mg IM STAT PRN; Protocol PRN Reason: Hypoglycemia Protocol Fluconazole (Diflucan Iv 100 Mg/50 Ml Ns) 50 mls @ 50 mls/hr IVPB DAILY [facility] Last Admin: 06/13/17 11:00 Dose: 50 mls/hr Tigecycline 50 mg/ Sodium (Chloride) 100 mls @ 100 mls/hr IVPB Q12H [facility] Last Admin: 06/13/17 06:29 Dose: 100 mls/hr Dextrose (Dextrose 5% In Water 1000 Ml) 1,000 mls @ 0 mls/hr IV .Q0M PRN; Protocol; Per Protocol PRN Reason: Hypoglycemia Protocol Multivitamins/Vitamin C 10 ml/Chromium/Copper/Manganese/Zinc 1 ml/ Amino Acids 1,011 mls @ 42 mls/hr IV .Q24H [facility] Fat Emulsion Intravenous (Intralipid 20%) 500 mls @ 42 mls/hr IV TTS [facility] Insulin Aspart (Novolog) 0 unit SC ACHS [facility] PRN Reason: Protocol Last Admin: 06/13/17 12:47 Dose: Not Given Insulin Aspart (Novolog) 3 unit SC AC [facility] Last Admin: 06/13/17 12:47 Dose: Not Given Insulin Glargine (Lantus) 10 unit SC HS [facility] Last Admin: 06/12/17 21:34 Dose: 10 units Labetalol HCl (Trandate) 100 mg PO BID [facility] Last Admin: 06/13/17 11:00 Dose: 100 mg Pantoprazole Sodium (Protonix Ec Tab) 40 mg PO DAILY [facility] Last Admin: 06/13/17 11:00 Dose: 40 mg Saccharomyces Boulardii (Florastor) 250 mg PO DAILY [facility] Last Admin: 06/13/17 11:00 Dose: 250 mg - Labs Labs: 06/13/17 08:26 06/13/17 08:26 PT 15.2 SECONDS (9.7-12.2) H 06/10/17 07:39 INR 1.3 06/10/17 07:39 APTT 33 SECONDS (21-34) 06/10/17 07:39
[2017-06-13] MEDS ORDERED: PPN #1 IV SCH (18:00)
[2017-06-13] MEDS: Fat Emulsion 20% IV 500 ML IV SCH (18:11)
[2017-06-13 18:22] LABS: C DIFF TOXIN A B NEGATIVE (NEGATIVE)
[2017-06-13 20:02] LABS: FECAL LEUKOCYTES NEGATIVE (NEGATIVE)
--- NOTE | 2017-06-13 21:23 | CP.PCM.PN ---
Subjective - Date & Time of Evaluation Date of Evaluation: 06/13/17 Time of Evaluation: 19:15 - Subjective Subjective: Patient started on PPN, not eating much; no nausea/vomiting; Objective - Vital Signs/Intake and Output Vital Signs (last 24 hours): Temp Pulse Resp BP Pulse Ox 97.8 F 70 20 115/78 98 06/13/17 16:08 06/13/17 16:08 06/13/17 16:08 06/13/17 16:08 06/13/17 16:08 Intake and Output: 06/13/17 06/14/17 18:59 06:59 Intake Total 410 Output Total 550 150 Balance -140 -150 - Medications Medications: Current Medications Acetaminophen (Tylenol 650mg/20.3ml Solution Ud) 650 mg PO Q4H PRN PRN Reason: Pain, moderate (4-7) Calcium Carbonate (Oscal) 500 mg PO BID [facility] Last Admin: 06/13/17 18:11 Dose: 500 mg Dextrose (Dextrose 50% Inj) 0 ml IV STAT PRN; Protocol PRN Reason: Hypoglycemia Protocol Dextrose (Glutose 15) 0 gm PO ONCE PRN; Protocol PRN Reason: Hypoglycemia Protocol Diltiazem HCl (Cardizem Cd) 120 mg PO DAILY [facility] Last Admin: 06/13/17 10:59 Dose: 120 mg Ergocalciferol (Drisdol 50,000 Intl Units Cap) 1 cap PO Q7D [facility] Stop: 07/20/17 06:15 Last Admin: 06/08/17 06:00 Dose: Not Given Furosemide (Lasix) 20 mg PO DAILY [facility] Last Admin: 06/13/17 10:59 Dose: 20 mg Glucagon (Glucagen Diagnostic Kit) 0 mg IM STAT PRN; Protocol PRN Reason: Hypoglycemia Protocol Fluconazole (Diflucan Iv 100 Mg/50 Ml Ns) 50 mls @ 50 mls/hr IVPB DAILY [facility] Last Admin: 06/13/17 11:00 Dose: 50 mls/hr Tigecycline 50 mg/ Sodium (Chloride) 100 mls @ 100 mls/hr IVPB Q12H [facility] Last Admin: 06/13/17 20:19 Dose: Not Given Dextrose (Dextrose 5% In Water 1000 Ml) 1,000 mls @ 0 mls/hr IV .Q0M PRN; Protocol; Per Protocol PRN Reason: Hypoglycemia Protocol Multivitamins/Vitamin C 10 ml/Chromium/Copper/Manganese/Zinc 1 ml/ Amino Acids 1,011 mls @ 42 mls/hr IV .Q24H [facility] Last Admin: 06/13/17 18:11 Dose: 42 mls/hr Fat Emulsion Intravenous (Intralipid 20%) 500 mls @ 42 mls/hr IV TTS [facility] Last Admin: 06/13/17 18:11 Dose: 42 mls/hr Insulin Aspart (Novolog) 0 unit SC ACHS [facility] PRN Reason: Protocol Last Admin: 06/13/17 18:12 Dose: Not Given Insulin Aspart (Novolog) 3 unit SC AC [facility] Last Admin: 06/13/17 18:12 Dose: 3 unit Insulin Glargine (Lantus) 10 unit SC HS [facility] Last Admin: 06/12/17 21:34 Dose: 10 units Labetalol HCl (Trandate) 100 mg PO BID [facility] Last Admin: 06/13/17 18:11 Dose: 100 mg Pantoprazole Sodium (Protonix Ec Tab) 40 mg PO DAILY [facility] Last Admin: 06/13/17 11:00 Dose: 40 mg Saccharomyces Boulardii (Florastor) 250 mg PO DAILY [facility] Last Admin: 06/13/17 11:00 Dose: 250 mg - Labs Labs: 06/13/17 08:26 06/13/17 08:26 PT 15.2 SECONDS (9.7-12.2) H 06/10/17 07:39 INR 1.3 06/10/17 07:39 APTT 33 SECONDS (21-34) 06/10/17 07:39 - Constitutional Appears: Non-toxic, No Acute Distress - Eye Exam Eye Exam: absent: Scleral icterus - ENT Exam ENT Exam: Mucous Membranes Moist - Respiratory Exam Respiratory Exam: Clear to Ausculation Bilateral. absent: Respiratory Distress - Cardiovascular Exam Cardiovascular Exam: RRR, +S1, +S2 - GI/Abdominal Exam GI & Abdominal Exam: Soft. absent: Distended, Tenderness - Extremities Exam Additional comments: marked b/l leg and arm edema; - Neurological Exam Neurological Exam: Alert, Awake - Psychiatric Exam Psychiatric exam: absent: Agitated - Skin Skin Exam: Warm. absent: Cyanosis Assessment and Plan (1) Hyponatremia Assessment & Plan: Again worsening; need to continue PO fluid restriction to <1L daily; will re- dose tolvaptan prn; restarting lasix should help as well; Status: Acute (2) Hypokalemia Assessment & Plan: Replenish prn, will worsen with restarting lasix; Status: Acute (3) Hypertension Status: Acute (4) Proteinuria Status: Acute (5) Hypocalcemia Status: Acute (6) Edema Assessment & Plan: Restarting lasix 20 mg bid PO; Status: Acute
[2017-06-13] MEDS: (Lantus) Insulin Glargine, Recombinant SC SCH (21:41)
--- NOTE | 2017-06-13 22:22 | CP.PCM.PN ---
Subjective - Date & Time of Evaluation Date of Evaluation: 06/13/17 Time of Evaluation: 18:00 - Subjective Subjective: No complaints, trying to eat more Objective - Vital Signs/Intake and Output Vital Signs (last 24 hours): Temp Pulse Resp BP Pulse Ox 97.8 F 70 20 110/68 98 06/13/17 16:08 06/13/17 16:08 06/13/17 16:08 06/13/17 21:40 06/13/17 16:08 Intake and Output: 06/13/17 06/14/17 18:59 06:59 Intake Total 410 Output Total 550 750 Balance -140 -750 - Medications Medications: Current Medications Acetaminophen (Tylenol 650mg/20.3ml Solution Ud) 650 mg PO Q4H PRN PRN Reason: Pain, moderate (4-7) Calcium Carbonate (Oscal) 500 mg PO BID [facility] Last Admin: 06/13/17 18:11 Dose: 500 mg Dextrose (Dextrose 50% Inj) 0 ml IV STAT PRN; Protocol PRN Reason: Hypoglycemia Protocol Dextrose (Glutose 15) 0 gm PO ONCE PRN; Protocol PRN Reason: Hypoglycemia Protocol Diltiazem HCl (Cardizem Cd) 120 mg PO DAILY [facility] Last Admin: 06/13/17 10:59 Dose: 120 mg Ergocalciferol (Drisdol 50,000 Intl Units Cap) 1 cap PO Q7D [facility] Stop: 07/20/17 06:15 Last Admin: 06/08/17 06:00 Dose: Not Given Furosemide (Lasix) 20 mg PO DAILY [facility] Last Admin: 06/13/17 10:59 Dose: 20 mg Glucagon (Glucagen Diagnostic Kit) 0 mg IM STAT PRN; Protocol PRN Reason: Hypoglycemia Protocol Fluconazole (Diflucan Iv 100 Mg/50 Ml Ns) 50 mls @ 50 mls/hr IVPB DAILY [facility] Last Admin: 06/13/17 11:00 Dose: 50 mls/hr Tigecycline 50 mg/ Sodium (Chloride) 100 mls @ 100 mls/hr IVPB Q12H [facility] Last Admin: 06/13/17 20:19 Dose: Not Given Dextrose (Dextrose 5% In Water 1000 Ml) 1,000 mls @ 0 mls/hr IV .Q0M PRN; Protocol; Per Protocol PRN Reason: Hypoglycemia Protocol Multivitamins/Vitamin C 10 ml/Chromium/Copper/Manganese/Zinc 1 ml/ Amino Acids 1,011 mls @ 42 mls/hr IV .Q24H [facility] Last Admin: 06/13/17 18:11 Dose: 42 mls/hr Fat Emulsion Intravenous (Intralipid 20%) 500 mls @ 42 mls/hr IV TTS [facility] Last Admin: 06/13/17 18:11 Dose: 42 mls/hr Potassium Chloride (Potassium Chloride 20 Meq/100 Ml) 20 meq in 100 mls @ 50 mls/hr IVPB ONCE ONE Stop: 06/13/17 23:21 Last Admin: 06/13/17 21:41 Dose: 50 mls/hr Insulin Aspart (Novolog) 0 unit SC ACHS [facility] PRN Reason: Protocol Last Admin: 06/13/17 21:38 Dose: Not Given Insulin Aspart (Novolog) 3 unit SC AC [facility] Last Admin: 06/13/17 18:12 Dose: 3 unit Insulin Glargine (Lantus) 10 unit SC HS [facility] Last Admin: 06/13/17 21:41 Dose: 10 units Labetalol HCl (Trandate) 100 mg PO BID [facility] Last Admin: 06/13/17 18:11 Dose: 100 mg Pantoprazole Sodium (Protonix Ec Tab) 40 mg PO DAILY [facility] Last Admin: 06/13/17 11:00 Dose: 40 mg Saccharomyces Boulardii (Florastor) 250 mg PO DAILY [facility] Last Admin: 06/13/17 11:00 Dose: 250 mg - Labs Labs: 06/13/17 08:26 06/13/17 08:26 PT 15.2 SECONDS (9.7-12.2) H 06/10/17 07:39 INR 1.3 06/10/17 07:39 APTT 33 SECONDS (21-34) 06/10/17 07:39 - Head Exam Head Exam: ATRAUMATIC - Eye Exam Eye Exam: Normal appearance - ENT Exam ENT Exam: Mucous Membranes Dry - Respiratory Exam Respiratory Exam: NORMAL BREATHING PATTERN - Cardiovascular Exam Cardiovascular Exam: +S1, +S2 - GI/Abdominal Exam GI & Abdominal Exam: Normal Bowel Sounds Assessment and Plan (1) Colon adenocarcinoma Assessment & Plan: stage IV outpatient treatment Status: Acute (2) Anemia Assessment & Plan: chronic disease Status: Acute (3) Coagulopathy Status: Acute
--- NOTE | 2017-06-13 22:32 | CP.PCM.PN ---
Subjective - Date & Time of Evaluation Date of Evaluation: 06/13/17 Time of Evaluation: 02:00 - Subjective Subjective: dictated Objective - Vital Signs/Intake and Output Vital Signs (last 24 hours): Temp Pulse Resp BP Pulse Ox 97.8 F 70 20 110/68 98 06/13/17 16:08 06/13/17 16:08 06/13/17 16:08 06/13/17 21:40 06/13/17 16:08 Intake and Output: 06/13/17 06/14/17 18:59 06:59 Intake Total 410 Output Total 550 750 Balance -140 -750 - Medications Medications: Current Medications Acetaminophen (Tylenol 650mg/20.3ml Solution Ud) 650 mg PO Q4H PRN PRN Reason: Pain, moderate (4-7) Calcium Carbonate (Oscal) 500 mg PO BID [facility] Last Admin: 06/13/17 18:11 Dose: 500 mg Dextrose (Dextrose 50% Inj) 0 ml IV STAT PRN; Protocol PRN Reason: Hypoglycemia Protocol Dextrose (Glutose 15) 0 gm PO ONCE PRN; Protocol PRN Reason: Hypoglycemia Protocol Diltiazem HCl (Cardizem Cd) 120 mg PO DAILY [facility] Last Admin: 06/13/17 10:59 Dose: 120 mg Ergocalciferol (Drisdol 50,000 Intl Units Cap) 1 cap PO Q7D [facility] Stop: 07/20/17 06:15 Last Admin: 06/08/17 06:00 Dose: Not Given Furosemide (Lasix) 20 mg PO DAILY [facility] Last Admin: 06/13/17 10:59 Dose: 20 mg Glucagon (Glucagen Diagnostic Kit) 0 mg IM STAT PRN; Protocol PRN Reason: Hypoglycemia Protocol Fluconazole (Diflucan Iv 100 Mg/50 Ml Ns) 50 mls @ 50 mls/hr IVPB DAILY [facility] Last Admin: 06/13/17 11:00 Dose: 50 mls/hr Tigecycline 50 mg/ Sodium (Chloride) 100 mls @ 100 mls/hr IVPB Q12H [facility] Last Admin: 06/13/17 20:19 Dose: Not Given Dextrose (Dextrose 5% In Water 1000 Ml) 1,000 mls @ 0 mls/hr IV .Q0M PRN; Protocol; Per Protocol PRN Reason: Hypoglycemia Protocol Multivitamins/Vitamin C 10 ml/Chromium/Copper/Manganese/Zinc 1 ml/ Amino Acids 1,011 mls @ 42 mls/hr IV .Q24H [facility] Last Admin: 06/13/17 18:11 Dose: 42 mls/hr Fat Emulsion Intravenous (Intralipid 20%) 500 mls @ 42 mls/hr IV TTS [facility] Last Admin: 06/13/17 18:11 Dose: 42 mls/hr Potassium Chloride (Potassium Chloride 20 Meq/100 Ml) 20 meq in 100 mls @ 50 mls/hr IVPB ONCE ONE Stop: 06/13/17 23:21 Last Admin: 06/13/17 21:41 Dose: 50 mls/hr Insulin Aspart (Novolog) 0 unit SC ACHS [facility] PRN Reason: Protocol Last Admin: 06/13/17 21:38 Dose: Not Given Insulin Aspart (Novolog) 3 unit SC AC [facility] Last Admin: 06/13/17 18:12 Dose: 3 unit Insulin Glargine (Lantus) 10 unit SC HS [facility] Last Admin: 06/13/17 21:41 Dose: 10 units Labetalol HCl (Trandate) 100 mg PO BID [facility] Last Admin: 06/13/17 18:11 Dose: 100 mg Pantoprazole Sodium (Protonix Ec Tab) 40 mg PO DAILY [facility] Last Admin: 06/13/17 11:00 Dose: 40 mg Saccharomyces Boulardii (Florastor) 250 mg PO DAILY [facility] Last Admin: 06/13/17 11:00 Dose: 250 mg - Labs Labs: 06/13/17 08:26 06/13/17 08:26 PT 15.2 SECONDS (9.7-12.2) H 06/10/17 07:39 INR 1.3 06/10/17 07:39 APTT 33 SECONDS (21-34) 06/10/17 07:39
--- NOTE | 2017-06-14 02:44 | PN ---
DATE: SUBJECTIVE: Patient is afebrile. She states she ate a little bit. She still is very weak and frail. PHYSICAL EXAMINATION: VITAL SIGNS: Pulse is 70, blood pressure 115/78, respirations are 20. HEENT: Head is atraumatic, normocephalic. NECK: Supple. LUNGS: Clear. HEART: S1 and S2 are regular. ABDOMEN: Still has 2 DARRYL drains. Colostomy was functioning today. EXTREMITIES: Remain with bilateral edema. LABORATORY DATA: Labs show white count is 10, hemoglobin 11.8, hematocrit 34.6, platelet count is 277. Urine culture has been ordered for tomorrow. Sodium is 127, still low but it is slightly better than yesterday, and patient's alkaline phosphatase is 297. 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 Colostomy seems to be functioning at this time, and we are looking for urine culture report, so that if the culture is negative and also these DARRYL drains are still draining, so we will continue antibiotics for now. She is on Tygacil and Diflucan at this time. Liborio Maravilla MD
[2017-06-14] MEDS: Acetaminophen 650mg/20.3ml solution UD PO PRN ×2 (05:35→17:40)
[2017-06-14] MEDS: (Novolog) Insulin Aspart, Recombinant 100 u/ml 10 ml vial SC SCH ×7 (07:41→22:13)
[2017-06-14 07:43] LABS: BASO % 0.4 % (0.0-2.0); EOS # 0.1 K/uL (0.0-0.7); EOS % 0.7 % (0.0-4.0); HEMOGLOBIN 12.1 g/dL (11.0-16.0); LYMPH # 1.4 K/uL (1.0-4.3); LYMPH % 11.9 % (20.0-40.0); MEAN CORPUSCULAR HEMOGLOBIN 30.2 pg (27.0-31.0); MEAN CORPUSCULAR HGB CONC 34.7 g/dL (33.0-37.0); MEAN PLATELET VOLUME 8.7 fL (7.2-11.7); MONO # 0.6 K/uL (0.0-0.8); MONO % 5.3 % (0.0-10.0); NEUT # 9.7 K/uL (1.8-7.0); NEUT % 81.7 % (50.0-75.0); NRBC % 0.1 % (0.0-2.0); RBC 3.99 Mil/uL (3.80-5.20); RED CELL DISTRIBUTION WIDTH 18.3 % (11.5-14.5); WHITE BLOOD COUNT 11.9 K/uL (4.8-10.8)
[2017-06-14 07:56] LABS: ALB/GLOB RATIO 0.7 (1.0-2.1); ALBUMIN 1.9 g/dL (3.5-5.0); ALT/SGPT 25 U/L (9-52); AST/SGOT 36 U/L (14-36); BLOOD UREA NITROGEN 21 mg/dL (7-17); CALCIUM 7.2 mg/dl (8.6-10.4); GFR AFRICAN-AMERICAN > 60; GFR NON-AFRICAN AMERICAN > 60; MAGNESIUM 1.6 mg/dL (1.6-2.3)
[2017-06-14] MEDS ORDERED: Potassium Chloride 20 mEq ER Tab PO ONE (09:25)
--- NOTE | 2017-06-14 09:25 | CP.PCM.PN ---
<Zackary Monkssyca BrandonYin - Last Filed: 06/14/17 15:43> Subjective - Date & Time of Evaluation Date of Evaluation: 06/14/17 Time of Evaluation: 07:00 - Subjective Subjective: Medicine Progress Note: Patient was seen and examined at bedside in the AM. Patient states she ate some oatmeal this morning and she did eat some food from how yesterday. She denies nausea, vomiting, fever or abdominal pain. Objective - Vital Signs/Intake and Output Vital Signs (last 24 hours): Temp Pulse Resp BP Pulse Ox 97.3 F L 65 20 121/71 97 06/14/17 07:15 06/14/17 07:15 06/14/17 07:15 06/14/17 07:15 06/14/17 07:15 Intake and Output: 06/14/17 06/14/17 06:59 18:59 Output Total 1535 Balance -1535 - Medications Medications: Current Medications Acetaminophen (Tylenol 650mg/20.3ml Solution Ud) 650 mg PO Q4H PRN PRN Reason: Pain, moderate (4-7) Last Admin: 06/14/17 05:35 Dose: 650 mg Calcium Carbonate (Oscal) 500 mg PO BID [facility] Last Admin: 06/13/17 18:11 Dose: 500 mg Dextrose (Dextrose 50% Inj) 0 ml IV STAT PRN; Protocol PRN Reason: Hypoglycemia Protocol Dextrose (Glutose 15) 0 gm PO ONCE PRN; Protocol PRN Reason: Hypoglycemia Protocol Diltiazem HCl (Cardizem Cd) 120 mg PO DAILY [facility] Last Admin: 06/13/17 10:59 Dose: 120 mg Ergocalciferol (Drisdol 50,000 Intl Units Cap) 1 cap PO Q7D [facility] Stop: 07/20/17 06:15 Last Admin: 06/08/17 06:00 Dose: Not Given Furosemide (Lasix) 20 mg PO BID [facility] Glucagon (Glucagen Diagnostic Kit) 0 mg IM STAT PRN; Protocol PRN Reason: Hypoglycemia Protocol Fluconazole (Diflucan Iv 100 Mg/50 Ml Ns) 50 mls @ 50 mls/hr IVPB DAILY [facility] Last Admin: 06/13/17 11:00 Dose: 50 mls/hr Tigecycline 50 mg/ Sodium (Chloride) 100 mls @ 100 mls/hr IVPB Q12H [facility] Last Admin: 06/14/17 07:32 Dose: 100 mls/hr Dextrose (Dextrose 5% In Water 1000 Ml) 1,000 mls @ 0 mls/hr IV .Q0M PRN; Protocol; Per Protocol PRN Reason: Hypoglycemia Protocol Multivitamins/Vitamin C 10 ml/Chromium/Copper/Manganese/Zinc 1 ml/ Amino Acids 1,011 mls @ 42 mls/hr IV .Q24H [facility] Last Admin: 06/13/17 18:11 Dose: 42 mls/hr Fat Emulsion Intravenous (Intralipid 20%) 500 mls @ 42 mls/hr IV TTS [facility] Last Admin: 06/13/17 18:11 Dose: 42 mls/hr Multivitamins/Vitamin C 10 ml/Chromium/Copper/Manganese/Zinc 1 ml/ Amino Acids 1,011 mls @ 42 mls/hr IV .Q24H ONE Stop: 06/15/17 17:59 Insulin Aspart (Novolog) 0 unit SC ACHS [facility] PRN Reason: Protocol Last Admin: 06/14/17 07:41 Dose: Not Given Insulin Aspart (Novolog) 3 unit SC AC [facility] Last Admin: 06/14/17 07:43 Dose: Not Given Insulin Glargine (Lantus) 10 unit SC HS [facility] Last Admin: 06/13/17 21:41 Dose: 10 units Labetalol HCl (Trandate) 100 mg PO BID [facility] Last Admin: 06/13/17 18:11 Dose: 100 mg Pantoprazole Sodium (Protonix Ec Tab) 40 mg PO DAILY [facility] Last Admin: 06/13/17 11:00 Dose: 40 mg Potassium Chloride (K-Dur 20 Meq Er Tab) 20 meq PO ONCE ONE Stop: 06/14/17 09:26 Saccharomyces Boulardii (Florastor) 250 mg PO DAILY [facility] Last Admin: 06/13/17 11:00 Dose: 250 mg - Labs Labs: 06/14/17 06:55 06/14/17 06:55 PT 15.2 SECONDS (9.7-12.2) H 06/10/17 07:39 INR 1.3 06/10/17 07:39 APTT 33 SECONDS (21-34) 06/10/17 07:39 - Constitutional Appears: No Acute Distress - Head Exam Head Exam: ATRAUMATIC, NORMAL INSPECTION - Eye Exam Eye Exam: EOMI, Normal appearance - ENT Exam ENT Exam: Mucous Membranes Moist - Respiratory Exam Respiratory Exam: Clear to Ausculation Bilateral, NORMAL BREATHING PATTERN - Cardiovascular Exam Cardiovascular Exam: REGULAR RHYTHM, +S1, +S2 - GI/Abdominal Exam GI & Abdominal Exam: Soft, Normal Bowel Sounds. absent: Tenderness Additional comments: colostomy bag - clean/dry/intact [address] - clean/dry/intact - Extremities Exam Extremities Exam: Pedal Edema (+2 bilateral pedal edema ) - Neurological Exam Neurological Exam: Alert, Awake, Oriented x3 - Psychiatric Exam Psychiatric exam: Flat Affect - Skin Skin Exam: Dry, Intact, Normal Color, Warm Additional comments: Staple are clean/dry/intact Assessment and Plan - Assessment and Plan (Free Text) Assessment: 1). Sigmoid colon mass/Liver lesion likely mets/Weight loss and abdominal pain * CT-Abd/Pelvis on admission showed 8.6 cm sigmoid mass with extensive hepatic metastasis. Bilateral renal cysts with large right upper pole renal cyst. Small bilateral pleural effusion and small pericardial effusion. Small hiatal hernia. Possible small diverticulum of the herniated stomach * Repeat Abd/Pel CT (05/30): no ureteral injury; bulk tumor in pelvis and hepatic mets disease; increasing pleural effusion in consolidative changes at the lung base; stable pericardial effusion; severe post-op anasarca. * CEA elevated @ 11.6. (Normal = 0-3.0) * Colonscopy (05/22/17): Non-bleeding external and internal hemorrhoids. 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 At the level of the distal sigmoid colon, contrast slowly traversed through a very thin and irregular channel to the level of the mid sigmoid at the site of the known sigmoid carcinoma. Contrast did not flow freely past this level. Exam was subsequently terminated. These findings were concerning for a near complete obstruction of the bowel lumen from the adjacent obstructing tumor. * Clear ensure ordered and Clear liquid diet started. * Venous dopplers UE&LE b/l ordered due to edema and cancer: f/u results * Calorie count and monitoring Consults * GI consult Dr Foster ,appreciated * recommends peripheral hyperalimentation * Started PPN on 06/13/17 * Dr Bright oncology consult --> help appreciated appreciated * Surgery consult Dr Richard --> help appreciated * 05/25/17: Patient underwent laparotomy with diverting colostomy and liver biopsy. She was found to have the colonic mass invading the bladder and therefore was not entirely resectable * Liver Biopsy: necrotic tissue * Stoma revision completed 06/10/17 . 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 Sepsis * leukocytosis, bandemia * procalcitonin trending down: 4.15 --> 1.82--> 0.78 * Blood cx (05/28): no growth; urine cx: no growth * Peritoneal fluid stain: negative * Repeat blood cultures (05/29/17): negative * UA: 1+ protein, 1+ blood, 1+ LE, WBC29, RBC32, Occ bacteria * ID consulted: Dr. Maravilla --> help appreciated * Meropenem 1gm IV Q12 discontinued * Vanco 750mg IV Q24 discontinued * Discontinued Flagyl 500mg IV Q8h (started 05/30/17) * CXR (06/01): moderate left, small right pleural effusion; moderate venous congestions; confluent opacities in left mid to lower and right mid to lower lung; cardiomegaly * Urine Culture: Yeast species * Fluconazole 100mg po daily started 06/08 * f/u repeat culture 05/15/17 * f/u stool culture, ova and parasite * C diff negative * Stool leukocytes negative * DARRYL drain cx: VRE + * Tigecycline 100 mg IV x 1 dose 06/08/17 then 50 mg IV Q12H starting 06/09/17 * f/u repeat culture 06/14/17 3). DM 2 * Aspart ISS Q6H Low Dose * Accuchecks -moderate * Lantus 20 units HS (increased from 10 units on 06/03) * Novolog 3 units SCqAC * A1c: 8.4 4). Hypertension * Labetolol 100mg Q12H, Enalapril 15 mg Daily, and Cardizem [id number] Daily 5) Acute Anemia - Type and Screen - 2 units of PRBC to be given 06/08/17 - Tylenol 650mg to be given 30 minutes before each blood transfusion - Benadryl 25mg to be given 30 minutes before each blood transfusion - Lasix 10mg to be given 30 minutes before each blood transfusion - s/p transfusion of 2 units hemaglobin 12.3 * Continue to monitor 6). Pericardial effusion/cardiomegaly * Cardiology Consulted (Dr. Portillo) - help appreciated * as per Dr. Portillo, continue medical therapy; effusion is small; LV function is normal * ECHO (05/20/17): Diastolic Dysfunction Grade I-abnormal relaxation pattern, Trace TR and MR 7). Bilateral Renal Cysts * U/S Renal 05/26/17: Right Upper Pole renal cyst measures approximately 10.4x8.3x9.2 cm. Left upper pole renal cyst measures 2.2x1.4x1.6 cm * Will need follow up U/S in 6 months 8). Respiratory Acidosis * Patient was extubated on 05/26/17 and placed on BiPap and Bicarb Drip * Patient no longer on BiPap or bicarb drip 9). Pleural Effusion * CXR (06/01): moderate left, small right pleural effusion; moderate venous congestions; confluent opacities in left mid to lower and right mid to lower lung; cardiomegaly * Chest CT: moderate b/l pleural effusion with b/l lower lobe segmental/ subsegmental atelectasis; cardiomegaly with small pericardial effusion; probably widespread hepatic metastasis. * Continue Duonebs Q4 * Pulmonology consulted, Dr. Cherry, help appreciated * IR consulted for therapeutic thoracentesis for pleural effusions; as per IR, US showed small pleural effusions not amenable to thoracentisis. 10.) Hypervolemic Hyponatremia - likely secondary to SIADH - Nephrology Consult: Dr. Lennon --> help appreciated - Urine sodium 43 - Urine Osmolality 563 - 1.5L of fluid restriction - Lasix 20mg Po daily - Tolvaptan 15mg po x1 dose 06/08/17 11.) Hypocalcemia /Hypokalemia - Repleted. Will monitor with serial CMP's. 12.) IV Access - Consent was done with POA 13.) Hypoalbuminemia - 25% Albumin 12.5gm IV once 14.). DVT and GI prophylaxis * Heparin 5000sc Q8- HOLD * Dilaudid 0.5 mg IV Q4H PRN Severe Pain * Protonix 40 mg IV Q12H * PT/OT * Incentive spirometry * Palliative care: patient is DNR/DNI as of 05/29/17. Polst form completed. * Diet: Diabetic diet * Started PPN Romero Mckoy ([phone]) Niall Prabhakar ([phone]) as POA/Health Care Proxy Disposition: Patient accepted to [facility] in [place], [place]. Possible discharge Monday06/16/17. Pending repeat 06/15/17 urine and drain cultures to be negative. Case discussed with Dr. Isael Monk PGY-1 <Mamta Kirkland V - Last Filed: 06/15/17 07:45> Objective - Vital Signs/Intake and Output Vital Signs (last 24 hours): Temp Pulse Resp BP Pulse Ox 97.4 F L 62 20 134/72 98 06/14/17 23:25 06/14/17 23:25 06/14/17 23:25 06/14/17 23:25 06/14/17 23:25 Intake and Output: 06/15/17 06/15/17 06:59 18:59 Intake Total 336 Output Total 1340 Balance -1004 - Medications Medications: Current Medications Acetaminophen (Tylenol 650mg/20.3ml Solution Ud) 650 mg PO Q4H PRN PRN Reason: Pain, moderate (4-7) Last Admin: 06/14/17 17:40 Dose: 650 mg Calcium Carbonate (Oscal) 500 mg PO BID [facility] Last Admin: 06/14/17 17:38 Dose: 500 mg Dextrose (Dextrose 50% Inj) 0 ml IV STAT PRN; Protocol PRN Reason: Hypoglycemia Protocol Dextrose (Glutose 15) 0 gm PO ONCE PRN; Protocol PRN Reason: Hypoglycemia Protocol Diltiazem HCl (Cardizem Cd) 120 mg PO DAILY [facility] Last Admin: 06/14/17 10:14 Dose: 120 mg Ergocalciferol (Drisdol 50,000 Intl Units Cap) 1 cap PO Q7D [facility] Stop: 07/20/17 06:15 Last Admin: 06/15/17 05:48 Dose: 1 cap Furosemide (Lasix) 20 mg PO BID [facility] Last Admin: 06/14/17 17:39 Dose: 20 mg Glucagon (Glucagen Diagnostic Kit) 0 mg IM STAT PRN; Protocol PRN Reason: Hypoglycemia Protocol Fluconazole (Diflucan Iv 100 Mg/50 Ml Ns) 50 mls @ 50 mls/hr IVPB DAILY [facility] Last Admin: 06/14/17 10:14 Dose: 50 mls/hr Tigecycline 50 mg/ Sodium (Chloride) 100 mls @ 100 mls/hr IVPB Q12H [facility] Last Admin: 06/15/17 06:26 Dose: 100 mls/hr Multivitamins/Vitamin C 10 ml/Chromium/Copper/Manganese/Zinc 1 ml/ Amino Acids 1,011 mls @ 42 mls/hr IV .Q24H [facility] Last Admin: 06/13/17 18:11 Dose: 42 mls/hr Fat Emulsion Intravenous (Intralipid 20%) 500 mls @ 42 mls/hr IV TTS [facility] Last Admin: 06/13/17 18:11 Dose: 42 mls/hr Multivitamins/Vitamin C 10 ml/Chromium/Copper/Manganese/Zinc 1 ml/ Amino Acids 1,011 mls @ 42 mls/hr IV .Q24H ONE Stop: 06/15/17 17:59 Last Admin: 06/14/17 17:39 Dose: 42 mls/hr Insulin Aspart (Novolog) 0 unit SC ACHS [facility] PRN Reason: Protocol Last Admin: 06/14/17 22:13 Dose: Not Given Insulin Aspart (Novolog) 3 unit SC AC [facility] Last Admin: 06/14/17 17:38 Dose: 3 unit Insulin Glargine (Lantus) 10 unit SC HS [facility] Last Admin: 06/14/17 22:16 Dose: 10 units Labetalol HCl (Trandate) 100 mg PO BID [facility] Last Admin: 06/14/17 17:42 Dose: Not Given Pantoprazole Sodium (Protonix Ec Tab) 40 mg PO DAILY [facility] Last Admin: 06/14/17 10:14 Dose: 40 mg Saccharomyces Boulardii (Florastor) 250 mg PO DAILY [facility] Last Admin: 06/14/17 10:14 Dose: 250 mg - Labs Labs: 06/15/17 07:04 06/14/17 06:55 PT 15.2 SECONDS (9.7-12.2) H 06/10/17 07:39 INR 1.3 06/10/17 07:39 APTT 33 SECONDS (21-34) 06/10/17 07:39 Attending/Attestation - Attestation I have personally seen and examined this patient.: Yes I have fully participated in the care of the patient.: Yes I have reviewed all pertinent clinical information, including history, physical exam and plan: Yes Notes (Text): This is late computer entry for 06/14/17. Patient seen, examined and case discussed with day-time resident. Patient seen this morning. Patient is in better spirits. Patient reports she ate food from home. Patient is on day 2 of PPN. Discussed case with surgeon, Dr. Richard, considering removing patient's DARRYL Drains however we are awaiting repeat cultures given she had VRE+ in one of the 2 drains. We have repeated the cultures today from DARRYL Drain sites and I have discussed with the nurse to collect. We have also repeat urine culture as well to see if yeast infection has cleared. Discussed with case management, patient has a spot at [facility] which is available when patient is stable for discharge. Will need to coordinate between specialists for discharge planning for possible 06/16/17 Assessment/Plan 1). Sigmoid Colon Mass/Liver Metastasis: * General surgery (Dr. Richard) on board-->help appreciated * hematology-oncology (Dr. Brandon Bright) on board-->help appreciated * Patient underwent laparotomy with diverting colostomy and liver biopsy on 05/25. She was found to have the colonic mass invading the bladder and therefore was not entirely resectable * KRAS mutation testing ordered by Heme/Onc Dr. Angella Bright and then outpatient Chemotherapy. * Revision of Colostomy by Surgery Dr. Richard performed morning 06/10/17 * 06/13: Questionable bloody stool-->stool studies were collected. monitor H/H/ Discussed with surgery resident chief on case. * 06/14: C. Dif negative, stool leukocyte negative 2). Hx Respiratory Acidosis 3). Sepsis * Infectious Disease (Dr. Maravilla) on board-->help appreciated * Urine Culture 05/30/17 shows NO growth * Urine Culture 06/04/17 showed Yeast and patient started on Fluconazole 100 mg PO 1x/day (06/08/17). Order repeat Urine Culture for 06/15/17. * Blood Culture 05/28/17 and 05/29/17 was negative at 5 days * Blood Culture 06/08/17 is negative to date * Peritoneal Fluid 05/30/17 showed NO growth * DARRYL Drain Culture x 1 06/04/17 showed VRE: Tigecycline 100 mg IV x 1 dose then 50 mg IV Q12H was started 06/09/17: DARRYL drains continue output clear yellow material. Repeat cultures set for 06/15/17 * Repeat DARRYL Drain cultures for 06/14/17--->monitor to determine if VRE+ has cleared or still requires IV Abx; surgery is considering removing the drains awaiting repeat cultures 4). Hx DM 2 * Insulin was adjusted on evening 06/06/17 as Surgery was concerned about the blood glucose being in the high 200s. However due to this adjustment, patient had episode of hypoglycemia again on morning of 06/07/17. * Patient had another episode of hypoglycemia morning of 06/11/17. Because of this and until patient starts to eat a regular diet (she is currently on FULL LIQUID) her Lantus has bee reduced from 20 to 10 units starting at 10 PM . Continue premeal Aspart 3 Units SC. * Monitor nutrition and will need to adjust insulin if applicable 5). Hx HTN * Diltiazem CD 120 mg PO 1x/day * Labetolol 100 mg PO 2x/day 6). Anemia Likely Secondary To Chronic Disease/Colon CA * 2 Units of PRBC given 06/08/17 after PICC line placement: HgB/Hct are now stable * continue to monitor H/H 7). Pericardial Effusion/Cardiomegaly 8). Bilateral Renal Cysts 9). Leukocytosis Likely Secondary to Sepsis: see Assessment and Plan #3 * Mild increase in white count, continue to monitor 10). Hypervolemic Hyponatremia * Nephrology Dr. Lennon help appreciated * Lasix 20 mg PO 2x/day was restarted * NaCl 2 gm PO 3x/day was discontinued * Tolvaptan 15 mg PO x 1 dose 06/08/17: Na has normalized * On fluid restriction 11). Low Albumin * Likely secondary to recent surgery/poor intake * Albumin 12.5 gm x 4 doses finished on 06/07/17 * Given Albumin 12.5 gm on 06/12/17 given low albumin * Start PPN 06/13/17 12). Bilateral Pleural Effusion * As per CT Chest 06/02/17 * IR Dr. John attempted Thoracentesis but too small and not amenable to thoracentesis 13). Bilateral UE and LE Edema * Bilateral UE Doppler 06/03/17: Superficial Thrombosis Right Basilic Vein and NO DVT * Bilateral LE Doppler 06/03/17: NO DVT 14). Hypocalcemia * Calcium Gluconate 2 gm IV given 06/08/17 after PICC line placement: when corrected for low albumin, Ca now has normalized * Calcium Carbonate 500 mg PO 2x/day 15). Low Vitamin D * Vitamin D 50,000 Units once a week for 8 weeks starting 06/08/17 16). Hypokalemia * Repleted via PO and IV 06/10/17 and 06/11/17 * monitor and replete if necessary 17). Hypomagnesemia * Resolved 18). Prophylaxis * Duoneb PRN * Tylenol 650mg PO Q 4H PRN pain * Heparin placed on HOLD in light of low HgB/Hct on 06/08/17 * Protonix 40mg PO daily * Florastor 250mg PO daily 06/07/17: two phlebotomists attempted to draw blood for CBC but not successful. Attempted to get PICC line for access however patient declined and wanted to be left alone and agreed to have placed on 06/08/17. 06/08/17: PICC Line placed. Surgery Dr. Richard holding off on revision of Colostomy for now until patient more medical stable. 06/09/17: Patient has been medically optimized for revision of Colostomy for morning 06/10/17. Surgery Team has been notified. 06/10/17: S/P revision of Colostomy. Spoke with ANAYELI Adorno who was at bedside and she was updated. 06/11/17: Incentive Spirometry encouraged 10x every hour. PT Evaluation and Treatment to get patient out of bed and moving ordered. 06/12/17: Encourage PO intake, Given Albumin. Continue IV abx for VRE and IV antifungal for yeast, repeat cultures later this week, f/u surgery POD 2 Will need to clarify with case management in regards to placement. 06/13/17: Encourage PO intake. Start PPN. Continue IV abx for VRE and IV antifungal for yeast. Repeat cultures for 06/15/17. Patient had questionable bloody bowel movements. Stool samples collected 06/14/17: Continue IV abx for VRE and IV antifungal for yeast. Repeat DARRYL Drains and Urine culture (06/14/17). Surgery considering to remove drains if cultures are negative. Will need to follow-up with ID in regards to culture results to determine antibiotics length and time. Patient has placement at [facility] for discharge planning.
[2017-06-14] MEDS: diltiaZEM 120 mg/24 Hours CD Cap PO SCH (10:14)
[2017-06-14] MEDS: Pantoprazole 40 mg EC Tab PO SCH (10:14)
[2017-06-14] MEDS: Fluconazole IV 100mg/50 ml NS 50 ML IVPB SCH (10:14)
[2017-06-14] MEDS: Saccharomyces Boulardi 250 mg Cap PO SCH (10:14)
--- NOTE | 2017-06-14 12:20 | OP ---
PROCEDURE DATE: 06/10/2017 PREOPERATIVE DIAGNOSIS: Necrotic edges of the end colostomy. POSTOPERATIVE DIAGNOSIS: Necrotic edges of the end colostomy. OPERATION: Revision of colostomy with debridement and re-suturing. TYPE OF ANESTHESIA: General with LMA. SURGEON: Joe Richard MD ORTHOTIC AND PROSTHETIC TECHNICIAN: . SPECIMEN: Trimmings from the edges. DESCRIPTION OF PROCEDURE: The patient was taken to the operating room and placed on the operating table in a supine position. After induction of anesthesia, the colostomy bag was then removed and the area was prepped with Betadine. A sterile 4x4 was placed into the ostomy to avoid spillage during surgery. Then, the entire area was prepped again and draped with sterile draping. The sutures holding the colostomy up to the skin and fascia were removed. The colostomy edges where the necrotic tissue was removed was sent as a specimen. C and S was done as well. Since the initial surgery, the diameter of the colon has diminished considerably since it was dilated in the beginning and therefore, the ostomy site was diminished in size by suturing from approximately 11 o'clock and they were approximated in the fascia. After debridement, both the fascia and the colostomy edges were trimmed down to normal bleeding tissue. The fascia was then approximated until approximately was allowed to pass through the fascia. An 0 PDS interrupted sutures were used to make the hole small by approximating the fascia. The skin was approximated in the same fashion. Then, the end colostomy was re-sutured through the skin using 2-0 chromic sutures. When this was completed, the colostomy edge looked of good color. The colostomy bag was re-applied and the packing was removed. The patient tolerated the procedure and sent to the recovery in satisfactory condition. Joe Richard MD
--- NOTE | 2017-06-14 14:53 | CP.PCM.PN ---
<Milton Jimenez - Last Filed: 06/14/17 15:38> Subjective - Date & Time of Evaluation Date of Evaluation: 06/14/17 Time of Evaluation: 15:39 - Subjective Subjective: General Surgery Progress Note for Dr. Richard Patient was seen and examined at bedside. No acute events overnight. Colostomy producing stool. Patient tolerating liquid diet. No complaints at this time. Objective - Vital Signs/Intake and Output Vital Signs (last 24 hours): Temp Pulse Resp BP Pulse Ox 97.3 F L 65 20 135/75 97 06/14/17 07:15 06/14/17 07:15 06/14/17 07:15 06/14/17 10:45 06/14/17 07:15 Intake and Output: 06/14/17 06/14/17 06:59 18:59 Output Total 1535 Balance -1535 - Medications Medications: Current Medications Acetaminophen (Tylenol 650mg/20.3ml Solution Ud) 650 mg PO Q4H PRN PRN Reason: Pain, moderate (4-7) Last Admin: 06/14/17 05:35 Dose: 650 mg Calcium Carbonate (Oscal) 500 mg PO BID [facility] Last Admin: 06/14/17 10:14 Dose: 500 mg Dextrose (Dextrose 50% Inj) 0 ml IV STAT PRN; Protocol PRN Reason: Hypoglycemia Protocol Dextrose (Glutose 15) 0 gm PO ONCE PRN; Protocol PRN Reason: Hypoglycemia Protocol Diltiazem HCl (Cardizem Cd) 120 mg PO DAILY [facility] Last Admin: 06/14/17 10:14 Dose: 120 mg Ergocalciferol (Drisdol 50,000 Intl Units Cap) 1 cap PO Q7D [facility] Stop: 07/20/17 06:15 Last Admin: 06/08/17 06:00 Dose: Not Given Furosemide (Lasix) 20 mg PO BID [facility] Last Admin: 06/14/17 10:45 Dose: 20 mg Glucagon (Glucagen Diagnostic Kit) 0 mg IM STAT PRN; Protocol PRN Reason: Hypoglycemia Protocol Fluconazole (Diflucan Iv 100 Mg/50 Ml Ns) 50 mls @ 50 mls/hr IVPB DAILY [facility] Last Admin: 06/14/17 10:14 Dose: 50 mls/hr Tigecycline 50 mg/ Sodium (Chloride) 100 mls @ 100 mls/hr IVPB Q12H [facility] Last Admin: 06/14/17 07:32 Dose: 100 mls/hr Dextrose (Dextrose 5% In Water 1000 Ml) 1,000 mls @ 0 mls/hr IV .Q0M PRN; Protocol; Per Protocol PRN Reason: Hypoglycemia Protocol Multivitamins/Vitamin C 10 ml/Chromium/Copper/Manganese/Zinc 1 ml/ Amino Acids 1,011 mls @ 42 mls/hr IV .Q24H [facility] Last Admin: 06/13/17 18:11 Dose: 42 mls/hr Fat Emulsion Intravenous (Intralipid 20%) 500 mls @ 42 mls/hr IV TTS [facility] Last Admin: 06/13/17 18:11 Dose: 42 mls/hr Multivitamins/Vitamin C 10 ml/Chromium/Copper/Manganese/Zinc 1 ml/ Amino Acids 1,011 mls @ 42 mls/hr IV .Q24H [facility] Stop: 06/15/17 17:59 Insulin Aspart (Novolog) 0 unit SC ACHS [facility] PRN Reason: Protocol Last Admin: 06/14/17 12:13 Dose: Not Given Insulin Aspart (Novolog) 3 unit SC AC [facility] Last Admin: 06/14/17 12:13 Dose: Not Given Insulin Glargine (Lantus) 10 unit SC HS [facility] Last Admin: 06/13/17 21:41 Dose: 10 units Labetalol HCl (Trandate) 100 mg PO BID [facility] Last Admin: 06/14/17 10:14 Dose: 100 mg Pantoprazole Sodium (Protonix Ec Tab) 40 mg PO DAILY [facility] Last Admin: 06/14/17 10:14 Dose: 40 mg Saccharomyces Boulardii (Florastor) 250 mg PO DAILY [facility] Last Admin: 06/14/17 10:14 Dose: 250 mg - Labs Labs: 06/14/17 06:55 06/14/17 06:55 PT 15.2 SECONDS (9.7-12.2) H 06/10/17 07:39 INR 1.3 06/10/17 07:39 APTT 33 SECONDS (21-34) 06/10/17 07:39 - Constitutional Appears: No Acute Distress - Head Exam Head Exam: ATRAUMATIC, NORMOCEPHALIC - Eye Exam Eye Exam: Normal appearance - ENT Exam ENT Exam: Mucous Membranes Moist - Respiratory Exam Respiratory Exam: NORMAL BREATHING PATTERN - Cardiovascular Exam Cardiovascular Exam: REGULAR RHYTHM - GI/Abdominal Exam GI & Abdominal Exam: Soft. absent: Tenderness Additional comments: stoma patent with brown stool output - Extremities Exam Extremities Exam: Normal Capillary Refill - Neurological Exam Neurological Exam: Alert, Awake, Oriented x3 - Psychiatric Exam Psychiatric exam: Normal Affect, Normal Mood - Skin Skin Exam: Dry, Intact, Normal Color, Warm Assessment and Plan - Assessment and Plan (Free Text) Plan: 86F s/p exploratory laparotomy w/diverting colostomy & liver biopsy POD#20 s/p colostomy revesion POD#4 FLD, ADAT Encourage IS use PT f/u wound cx, if gram stain negative can remove drains Discussed with Dr. Hilary Jimenez PGY1 <Mamta Kirkland V - Last Filed: 06/15/17 07:46> Objective - Vital Signs/Intake and Output Vital Signs (last 24 hours): Temp Pulse Resp BP Pulse Ox 97.4 F L 62 20 134/72 98 06/14/17 23:25 06/14/17 23:25 06/14/17 23:25 06/14/17 23:25 06/14/17 23:25 Intake and Output: 06/15/17 06/15/17 06:59 18:59 Intake Total 336 Output Total 1340 Balance -1004 - Medications Medications: Current Medications Acetaminophen (Tylenol 650mg/20.3ml Solution Ud) 650 mg PO Q4H PRN PRN Reason: Pain, moderate (4-7) Last Admin: 06/14/17 17:40 Dose: 650 mg Calcium Carbonate (Oscal) 500 mg PO BID [facility] Last Admin: 06/14/17 17:38 Dose: 500 mg Dextrose (Dextrose 50% Inj) 0 ml IV STAT PRN; Protocol PRN Reason: Hypoglycemia Protocol Dextrose (Glutose 15) 0 gm PO ONCE PRN; Protocol PRN Reason: Hypoglycemia Protocol Diltiazem HCl (Cardizem Cd) 120 mg PO DAILY [facility] Last Admin: 06/14/17 10:14 Dose: 120 mg Ergocalciferol (Drisdol 50,000 Intl Units Cap) 1 cap PO Q7D [facility] Stop: 07/20/17 06:15 Last Admin: 06/15/17 05:48 Dose: 1 cap Furosemide (Lasix) 20 mg PO BID [facility] Last Admin: 06/14/17 17:39 Dose: 20 mg Glucagon (Glucagen Diagnostic Kit) 0 mg IM STAT PRN; Protocol PRN Reason: Hypoglycemia Protocol Fluconazole (Diflucan Iv 100 Mg/50 Ml Ns) 50 mls @ 50 mls/hr IVPB DAILY [facility] Last Admin: 06/14/17 10:14 Dose: 50 mls/hr Tigecycline 50 mg/ Sodium (Chloride) 100 mls @ 100 mls/hr IVPB Q12H [facility] Last Admin: 06/15/17 06:26 Dose: 100 mls/hr Multivitamins/Vitamin C 10 ml/Chromium/Copper/Manganese/Zinc 1 ml/ Amino Acids 1,011 mls @ 42 mls/hr IV .Q24H [facility] Last Admin: 06/13/17 18:11 Dose: 42 mls/hr Fat Emulsion Intravenous (Intralipid 20%) 500 mls @ 42 mls/hr IV TTS [facility] Last Admin: 06/13/17 18:11 Dose: 42 mls/hr Multivitamins/Vitamin C 10 ml/Chromium/Copper/Manganese/Zinc 1 ml/ Amino Acids 1,011 mls @ 42 mls/hr IV .Q24H [facility] Stop: 06/15/17 17:59 Last Admin: 06/14/17 17:39 Dose: 42 mls/hr Insulin Aspart (Novolog) 0 unit SC ACHS [facility] PRN Reason: Protocol Last Admin: 06/14/17 22:13 Dose: Not Given Insulin Aspart (Novolog) 3 unit SC AC [facility] Last Admin: 06/14/17 17:38 Dose: 3 unit Insulin Glargine (Lantus) 10 unit SC HS [facility] Last Admin: 06/14/17 22:16 Dose: 10 units Labetalol HCl (Trandate) 100 mg PO BID [facility] Last Admin: 06/14/17 17:42 Dose: Not Given Pantoprazole Sodium (Protonix Ec Tab) 40 mg PO DAILY [facility] Last Admin: 06/14/17 10:14 Dose: 40 mg Saccharomyces Boulardii (Florastor) 250 mg PO DAILY [facility] Last Admin: 06/14/17 10:14 Dose: 250 mg - Labs Labs: 06/15/17 07:04 06/14/17 06:55 PT 15.2 SECONDS (9.7-12.2) H 06/10/17 07:39 INR 1.3 06/10/17 07:39 APTT 33 SECONDS (21-34) 06/10/17 07:39 Attending/Attestation - Attestation I have reviewed all pertinent clinical information, including history, physical exam and plan: Yes Notes (Text): lplease disregard my note. This is the surgery progress note.
[2017-06-14] MEDS ORDERED: Potassium Chloride 20 mEq/15 ml LIQ UD PO ONE (16:58)
[2017-06-14] MEDS ORDERED: PPN #2 IV ONE (18:00)
--- NOTE | 2017-06-14 22:10 | CP.PCM.PN ---
Subjective - Date & Time of Evaluation Date of Evaluation: 06/14/17 Time of Evaluation: 17:15 - Subjective Subjective: Patient reports feeling well; tolerating diet, no nausea/vomiting; on PPN; reports limiting water intake; Objective - Vital Signs/Intake and Output Vital Signs (last 24 hours): Temp Pulse Resp BP Pulse Ox 97.9 F 67 20 116/74 95 06/14/17 16:01 06/14/17 16:01 06/14/17 16:01 06/14/17 17:39 06/14/17 16:01 Intake and Output: 06/14/17 06/15/17 18:59 06:59 Intake Total 590 Output Total 450 Balance 140 - Medications Medications: Current Medications Acetaminophen (Tylenol 650mg/20.3ml Solution Ud) 650 mg PO Q4H PRN PRN Reason: Pain, moderate (4-7) Last Admin: 06/14/17 17:40 Dose: 650 mg Calcium Carbonate (Oscal) 500 mg PO BID [facility] Last Admin: 06/14/17 17:38 Dose: 500 mg Dextrose (Dextrose 50% Inj) 0 ml IV STAT PRN; Protocol PRN Reason: Hypoglycemia Protocol Dextrose (Glutose 15) 0 gm PO ONCE PRN; Protocol PRN Reason: Hypoglycemia Protocol Diltiazem HCl (Cardizem Cd) 120 mg PO DAILY [facility] Last Admin: 06/14/17 10:14 Dose: 120 mg Ergocalciferol (Drisdol 50,000 Intl Units Cap) 1 cap PO Q7D [facility] Stop: 07/20/17 06:15 Last Admin: 06/08/17 06:00 Dose: Not Given Furosemide (Lasix) 20 mg PO BID [facility] Last Admin: 06/14/17 17:39 Dose: 20 mg Glucagon (Glucagen Diagnostic Kit) 0 mg IM STAT PRN; Protocol PRN Reason: Hypoglycemia Protocol Fluconazole (Diflucan Iv 100 Mg/50 Ml Ns) 50 mls @ 50 mls/hr IVPB DAILY [facility] Last Admin: 06/14/17 10:14 Dose: 50 mls/hr Tigecycline 50 mg/ Sodium (Chloride) 100 mls @ 100 mls/hr IVPB Q12H [facility] Last Admin: 06/14/17 19:54 Dose: 100 mls/hr Multivitamins/Vitamin C 10 ml/Chromium/Copper/Manganese/Zinc 1 ml/ Amino Acids 1,011 mls @ 42 mls/hr IV .Q24H [facility] Last Admin: 06/13/17 18:11 Dose: 42 mls/hr Fat Emulsion Intravenous (Intralipid 20%) 500 mls @ 42 mls/hr IV TTS [facility] Last Admin: 06/13/17 18:11 Dose: 42 mls/hr Multivitamins/Vitamin C 10 ml/Chromium/Copper/Manganese/Zinc 1 ml/ Amino Acids 1,011 mls @ 42 mls/hr IV .Q24H [facility] Stop: 06/15/17 17:59 Last Admin: 06/14/17 17:39 Dose: 42 mls/hr Insulin Aspart (Novolog) 0 unit SC ACHS [facility] PRN Reason: Protocol Last Admin: 06/14/17 17:47 Dose: Not Given Insulin Aspart (Novolog) 3 unit SC AC [facility] Last Admin: 06/14/17 17:38 Dose: 3 unit Insulin Glargine (Lantus) 10 unit SC HS [facility] Last Admin: 06/13/17 21:41 Dose: 10 units Labetalol HCl (Trandate) 100 mg PO BID [facility] Last Admin: 06/14/17 17:42 Dose: Not Given Pantoprazole Sodium (Protonix Ec Tab) 40 mg PO DAILY [facility] Last Admin: 06/14/17 10:14 Dose: 40 mg Saccharomyces Boulardii (Florastor) 250 mg PO DAILY [facility] Last Admin: 06/14/17 10:14 Dose: 250 mg - Labs Labs: 06/14/17 06:55 06/14/17 06:55 PT 15.2 SECONDS (9.7-12.2) H 06/10/17 07:39 INR 1.3 06/10/17 07:39 APTT 33 SECONDS (21-34) 06/10/17 07:39 - Constitutional Appears: Non-toxic, No Acute Distress - Eye Exam Eye Exam: absent: Scleral icterus - ENT Exam ENT Exam: Mucous Membranes Moist - Respiratory Exam Respiratory Exam: Clear to Ausculation Bilateral. absent: Respiratory Distress - Cardiovascular Exam Cardiovascular Exam: RRR, +S1, +S2 - GI/Abdominal Exam GI & Abdominal Exam: Soft. absent: Distended, Tenderness - Extremities Exam Additional comments: Severe leg edema b/l, anasarca; - Neurological Exam Neurological Exam: Alert, Awake - Psychiatric Exam Psychiatric exam: Normal Affect, Normal Mood. absent: Agitated - Skin Skin Exam: Warm. absent: Cyanosis Assessment and Plan (1) Hyponatremia Assessment & Plan: Mild but stable on loop diuretics; correcting hypokalemia should help further; continue lasix 20 mg PO bid; continue 1L PO fluid restriction; Status: Acute (2) Hypokalemia Assessment & Plan: Mild but should aim for K ~4.0 to help keep correct hyponatremia; giving 40 meq KCl this evening; Status: Acute (3) Hypertension Assessment & Plan: BP controlled on cardizem and labetalol, continue same; Status: Acute (4) Proteinuria Status: Acute (5) Hypocalcemia Status: Acute (6) Edema Assessment & Plan: With severe hypoalbuminemia; on lasix 20 mg bid, continue; hold off on aldactone until Na >130; Status: Acute
[2017-06-14] MEDS: (Lantus) Insulin Glargine, Recombinant SC SCH (22:16)
--- NOTE | 2017-06-14 22:27 | CP.PCM.PN ---
Subjective - Date & Time of Evaluation Date of Evaluation: 06/14/17 Time of Evaluation: 20:10 - Subjective Subjective: No complaints. Objective - Vital Signs/Intake and Output Vital Signs (last 24 hours): Temp Pulse Resp BP Pulse Ox 97.9 F 67 20 116/74 95 06/14/17 16:01 06/14/17 16:01 06/14/17 16:01 06/14/17 17:39 06/14/17 16:01 Intake and Output: 06/14/17 06/15/17 18:59 06:59 Intake Total 590 Output Total 450 800 Balance 140 -800 - Medications Medications: Current Medications Acetaminophen (Tylenol 650mg/20.3ml Solution Ud) 650 mg PO Q4H PRN PRN Reason: Pain, moderate (4-7) Last Admin: 06/14/17 17:40 Dose: 650 mg Calcium Carbonate (Oscal) 500 mg PO BID [facility] Last Admin: 06/14/17 17:38 Dose: 500 mg Dextrose (Dextrose 50% Inj) 0 ml IV STAT PRN; Protocol PRN Reason: Hypoglycemia Protocol Dextrose (Glutose 15) 0 gm PO ONCE PRN; Protocol PRN Reason: Hypoglycemia Protocol Diltiazem HCl (Cardizem Cd) 120 mg PO DAILY [facility] Last Admin: 06/14/17 10:14 Dose: 120 mg Ergocalciferol (Drisdol 50,000 Intl Units Cap) 1 cap PO Q7D [facility] Stop: 07/20/17 06:15 Last Admin: 06/08/17 06:00 Dose: Not Given Furosemide (Lasix) 20 mg PO BID [facility] Last Admin: 06/14/17 17:39 Dose: 20 mg Glucagon (Glucagen Diagnostic Kit) 0 mg IM STAT PRN; Protocol PRN Reason: Hypoglycemia Protocol Fluconazole (Diflucan Iv 100 Mg/50 Ml Ns) 50 mls @ 50 mls/hr IVPB DAILY [facility] Last Admin: 06/14/17 10:14 Dose: 50 mls/hr Tigecycline 50 mg/ Sodium (Chloride) 100 mls @ 100 mls/hr IVPB Q12H [facility] Last Admin: 06/14/17 19:54 Dose: 100 mls/hr Multivitamins/Vitamin C 10 ml/Chromium/Copper/Manganese/Zinc 1 ml/ Amino Acids 1,011 mls @ 42 mls/hr IV .Q24H [facility] Last Admin: 06/13/17 18:11 Dose: 42 mls/hr Fat Emulsion Intravenous (Intralipid 20%) 500 mls @ 42 mls/hr IV TTS [facility] Last Admin: 06/13/17 18:11 Dose: 42 mls/hr Multivitamins/Vitamin C 10 ml/Chromium/Copper/Manganese/Zinc 1 ml/ Amino Acids 1,011 mls @ 42 mls/hr IV .Q24H [facility] Stop: 06/15/17 17:59 Last Admin: 06/14/17 17:39 Dose: 42 mls/hr Insulin Aspart (Novolog) 0 unit SC ACHS [facility] PRN Reason: Protocol Last Admin: 06/14/17 22:13 Dose: Not Given Insulin Aspart (Novolog) 3 unit SC AC [facility] Last Admin: 06/14/17 17:38 Dose: 3 unit Insulin Glargine (Lantus) 10 unit SC HS [facility] Last Admin: 06/14/17 22:16 Dose: 10 units Labetalol HCl (Trandate) 100 mg PO BID [facility] Last Admin: 06/14/17 17:42 Dose: Not Given Pantoprazole Sodium (Protonix Ec Tab) 40 mg PO DAILY [facility] Last Admin: 06/14/17 10:14 Dose: 40 mg Saccharomyces Boulardii (Florastor) 250 mg PO DAILY [facility] Last Admin: 06/14/17 10:14 Dose: 250 mg - Labs Labs: 06/14/17 06:55 06/14/17 06:55 PT 15.2 SECONDS (9.7-12.2) H 06/10/17 07:39 INR 1.3 06/10/17 07:39 APTT 33 SECONDS (21-34) 06/10/17 07:39 - Head Exam Head Exam: ATRAUMATIC - Eye Exam Eye Exam: Normal appearance - ENT Exam ENT Exam: Mucous Membranes Dry - Respiratory Exam Respiratory Exam: NORMAL BREATHING PATTERN - Cardiovascular Exam Cardiovascular Exam: +S1, +S2 - GI/Abdominal Exam GI & Abdominal Exam: Normal Bowel Sounds - Extremities Exam Extremities Exam: Pedal Edema Assessment and Plan (1) Colon adenocarcinoma Assessment & Plan: stage IV outpatient treatment Status: Acute (2) Coagulopathy Status: Acute
--- NOTE | 2017-06-14 22:31 | CP.PCM.PN ---
Subjective - Date & Time of Evaluation Date of Evaluation: 06/14/17 Time of Evaluation: 02:15 - Subjective Subjective: dictated Objective - Vital Signs/Intake and Output Vital Signs (last 24 hours): Temp Pulse Resp BP Pulse Ox 97.9 F 67 20 116/74 95 06/14/17 16:01 06/14/17 16:01 06/14/17 16:01 06/14/17 17:39 06/14/17 16:01 Intake and Output: 06/14/17 06/15/17 18:59 06:59 Intake Total 590 Output Total 450 800 Balance 140 -800 - Medications Medications: Current Medications Acetaminophen (Tylenol 650mg/20.3ml Solution Ud) 650 mg PO Q4H PRN PRN Reason: Pain, moderate (4-7) Last Admin: 06/14/17 17:40 Dose: 650 mg Calcium Carbonate (Oscal) 500 mg PO BID [facility] Last Admin: 06/14/17 17:38 Dose: 500 mg Dextrose (Dextrose 50% Inj) 0 ml IV STAT PRN; Protocol PRN Reason: Hypoglycemia Protocol Dextrose (Glutose 15) 0 gm PO ONCE PRN; Protocol PRN Reason: Hypoglycemia Protocol Diltiazem HCl (Cardizem Cd) 120 mg PO DAILY [facility] Last Admin: 06/14/17 10:14 Dose: 120 mg Ergocalciferol (Drisdol 50,000 Intl Units Cap) 1 cap PO Q7D [facility] Stop: 07/20/17 06:15 Last Admin: 06/08/17 06:00 Dose: Not Given Furosemide (Lasix) 20 mg PO BID [facility] Last Admin: 06/14/17 17:39 Dose: 20 mg Glucagon (Glucagen Diagnostic Kit) 0 mg IM STAT PRN; Protocol PRN Reason: Hypoglycemia Protocol Fluconazole (Diflucan Iv 100 Mg/50 Ml Ns) 50 mls @ 50 mls/hr IVPB DAILY [facility] Last Admin: 06/14/17 10:14 Dose: 50 mls/hr Tigecycline 50 mg/ Sodium (Chloride) 100 mls @ 100 mls/hr IVPB Q12H [facility] Last Admin: 06/14/17 19:54 Dose: 100 mls/hr Multivitamins/Vitamin C 10 ml/Chromium/Copper/Manganese/Zinc 1 ml/ Amino Acids 1,011 mls @ 42 mls/hr IV .Q24H [facility] Last Admin: 06/13/17 18:11 Dose: 42 mls/hr Fat Emulsion Intravenous (Intralipid 20%) 500 mls @ 42 mls/hr IV TTS [facility] Last Admin: 06/13/17 18:11 Dose: 42 mls/hr Multivitamins/Vitamin C 10 ml/Chromium/Copper/Manganese/Zinc 1 ml/ Amino Acids 1,011 mls @ 42 mls/hr IV .Q24H [facility] Stop: 06/15/17 17:59 Last Admin: 06/14/17 17:39 Dose: 42 mls/hr Insulin Aspart (Novolog) 0 unit SC ACHS [facility] PRN Reason: Protocol Last Admin: 06/14/17 22:13 Dose: Not Given Insulin Aspart (Novolog) 3 unit SC AC [facility] Last Admin: 06/14/17 17:38 Dose: 3 unit Insulin Glargine (Lantus) 10 unit SC HS [facility] Last Admin: 06/14/17 22:16 Dose: 10 units Labetalol HCl (Trandate) 100 mg PO BID [facility] Last Admin: 06/14/17 17:42 Dose: Not Given Pantoprazole Sodium (Protonix Ec Tab) 40 mg PO DAILY [facility] Last Admin: 06/14/17 10:14 Dose: 40 mg Saccharomyces Boulardii (Florastor) 250 mg PO DAILY [facility] Last Admin: 06/14/17 10:14 Dose: 250 mg - Labs Labs: 06/14/17 06:55 06/14/17 06:55 PT 15.2 SECONDS (9.7-12.2) H 06/10/17 07:39 INR 1.3 06/10/17 07:39 APTT 33 SECONDS (21-34) 06/10/17 07:39
--- NOTE | 2017-06-15 03:41 | PN ---
DATE: SUBJECTIVE: The patient remains well but she has been eating a little bit. PHYSICAL EXAMINATION: VITAL SIGNS: T-max was 97.9, pulse 67, blood pressure 116/74, respirations are 20. HEENT: Head is atraumatic and normocephalic. She denied any breathing trouble. NECK: Supple. LUNGS: Clear. HEART: S1 and S2 are regular. ABDOMEN: Remains with drains and drain had clear liquid, which almost looks watery, water consistency, which is drained and is clear and colostomy had no stool today. EXTREMITIES: Remain with edema, I saw her on . LABORATORY DATA: Labs are noted. Labs show white count is 11.9, hemoglobin 12.1, hematocrit 34.7, platelet count is 223. She has a lot of output in these drains, which is not decreasing, I think. Chlorides are 92, CO2 is 33, BUN was 21, creatinine 0.5. Blood cultures have been negative. Wound culture has been negative. One wound culture was VRE on 06/04. She is on Tygacil and Diflucan as well at this time and we will continue same for now and hoping that her drains come out. She has an inoperable tumor and she has been on antibiotics now. I think on 06/05, we have started the treatment, so she has almost been, more than a week, on Diflucan and Tygacil. Liborio Maravilla MD
[2017-06-15] MEDS: Ergocalciferol 50,000 Intl Units Cap PO SCH (05:48)
[2017-06-15 07:31] LABS: BASO # 0.1 K/uL (0.0-0.2); BASO % 0.7 % (0.0-2.0); EOS # 0.1 K/uL (0.0-0.7); EOS % 0.7 % (0.0-4.0); HEMOGLOBIN 12.4 g/dL (11.0-16.0); LYMPH % 17.3 % (20.0-40.0); MEAN CORPUSCULAR HEMOGLOBIN 29.9 pg (27.0-31.0); MEAN CORPUSCULAR HGB CONC 34.4 g/dL (33.0-37.0); MEAN PLATELET VOLUME 8.9 fL (7.2-11.7); MONO # 0.8 K/uL (0.0-0.8); NEUT # 8.4 K/uL (1.8-7.0); NEUT % 74.3 % (50.0-75.0); RBC 4.14 Mil/uL (3.80-5.20); RED CELL DISTRIBUTION WIDTH 18.3 % (11.5-14.5); WHITE BLOOD COUNT 11.3 K/uL (4.8-10.8)
[2017-06-15 07:54] LABS: ALB/GLOB RATIO 0.7 (1.0-2.1); ALBUMIN 1.9 g/dL (3.5-5.0); ALT/SGPT 23 U/L (9-52); AST/SGOT 45 U/L (14-36); BLOOD UREA NITROGEN 21 mg/dL (7-17); CALCIUM 7.2 mg/dl (8.6-10.4); GFR AFRICAN-AMERICAN > 60; GFR NON-AFRICAN AMERICAN > 60; MAGNESIUM 1.6 mg/dL (1.6-2.3)
--- NOTE | 2017-06-15 08:03 | CP.PCM.PN ---
Subjective - Date & Time of Evaluation Date of Evaluation: 06/15/17 Time of Evaluation: 06:30 - Subjective Subjective: General Surgery Progress note- Dr. Richard Patient seen and examined at bedside this Am. No acute events overnight. nursing notes reviewed. Bailey in place. No new complaints. Drain x2 in place. Repeat cultures negative at this time. Objective - Vital Signs/Intake and Output Vital Signs (last 24 hours): Temp Pulse Resp BP Pulse Ox 97.4 F L 62 20 134/72 98 06/14/17 23:25 06/14/17 23:25 06/14/17 23:25 06/14/17 23:25 06/14/17 23:25 Intake and Output: 06/15/17 06/15/17 06:59 18:59 Intake Total 336 Output Total 1340 Balance -1004 - Medications Medications: Current Medications Acetaminophen (Tylenol 650mg/20.3ml Solution Ud) 650 mg PO Q4H PRN PRN Reason: Pain, moderate (4-7) Last Admin: 06/14/17 17:40 Dose: 650 mg Calcium Carbonate (Oscal) 500 mg PO BID [facility] Last Admin: 06/14/17 17:38 Dose: 500 mg Dextrose (Dextrose 50% Inj) 0 ml IV STAT PRN; Protocol PRN Reason: Hypoglycemia Protocol Dextrose (Glutose 15) 0 gm PO ONCE PRN; Protocol PRN Reason: Hypoglycemia Protocol Diltiazem HCl (Cardizem Cd) 120 mg PO DAILY [facility] Last Admin: 06/14/17 10:14 Dose: 120 mg Ergocalciferol (Drisdol 50,000 Intl Units Cap) 1 cap PO Q7D [facility] Stop: 07/20/17 06:15 Last Admin: 06/15/17 05:48 Dose: 1 cap Furosemide (Lasix) 20 mg PO BID [facility] Last Admin: 06/14/17 17:39 Dose: 20 mg Glucagon (Glucagen Diagnostic Kit) 0 mg IM STAT PRN; Protocol PRN Reason: Hypoglycemia Protocol Fluconazole (Diflucan Iv 100 Mg/50 Ml Ns) 50 mls @ 50 mls/hr IVPB DAILY [facility] Last Admin: 06/14/17 10:14 Dose: 50 mls/hr Tigecycline 50 mg/ Sodium (Chloride) 100 mls @ 100 mls/hr IVPB Q12H [facility] Last Admin: 06/15/17 06:26 Dose: 100 mls/hr Multivitamins/Vitamin C 10 ml/Chromium/Copper/Manganese/Zinc 1 ml/ Amino Acids 1,011 mls @ 42 mls/hr IV .Q24H [facility] Last Admin: 06/13/17 18:11 Dose: 42 mls/hr Fat Emulsion Intravenous (Intralipid 20%) 500 mls @ 42 mls/hr IV TTS [facility] Last Admin: 06/13/17 18:11 Dose: 42 mls/hr Multivitamins/Vitamin C 10 ml/Chromium/Copper/Manganese/Zinc 1 ml/ Amino Acids 1,011 mls @ 42 mls/hr IV .Q24H ONE Stop: 06/15/17 17:59 Last Admin: 06/14/17 17:39 Dose: 42 mls/hr Insulin Aspart (Novolog) 0 unit SC ACHS [facility] PRN Reason: Protocol Last Admin: 06/14/17 22:13 Dose: Not Given Insulin Aspart (Novolog) 3 unit SC AC [facility] Last Admin: 06/14/17 17:38 Dose: 3 unit Insulin Glargine (Lantus) 10 unit SC HS [facility] Last Admin: 06/14/17 22:16 Dose: 10 units Labetalol HCl (Trandate) 100 mg PO BID [facility] Last Admin: 06/14/17 17:42 Dose: Not Given Pantoprazole Sodium (Protonix Ec Tab) 40 mg PO DAILY [facility] Last Admin: 06/14/17 10:14 Dose: 40 mg Saccharomyces Boulardii (Florastor) 250 mg PO DAILY [facility] Last Admin: 06/14/17 10:14 Dose: 250 mg - Labs Labs: 06/15/17 07:04 06/15/17 07:04 PT 15.2 SECONDS (9.7-12.2) H 06/10/17 07:39 INR 1.3 06/10/17 07:39 APTT 33 SECONDS (21-34) 06/10/17 07:39 - Constitutional Appears: Non-toxic, No Acute Distress, Chronically Ill - Head Exam Head Exam: ATRAUMATIC - Eye Exam Eye Exam: EOMI - ENT Exam ENT Exam: Mucous Membranes Moist - Respiratory Exam Respiratory Exam: absent: Accessory Muscle Use, Respiratory Distress - Cardiovascular Exam Cardiovascular Exam: +S1, +S2. absent: Bradycardia, Tachycardia - GI/Abdominal Exam GI & Abdominal Exam: Soft. absent: Distended, Firm, Guarding, Rigid, Tenderness Additional comments: incision dressing c/d/i - Extremities Exam Extremities Exam: absent: Calf Tenderness - Neurological Exam Neurological Exam: Alert, Awake, Oriented x3 - Skin Skin Exam: Intact, Warm Assessment and Plan - Assessment and Plan (Free Text) Assessment: 86F s/p ex lap diverting colosotmy w/ liver biopsy POD 17, Stoma revision POD 4 Plan: - Dressing changes PRN - remainder of edel to be removed - monitor drain and stoma output - initial drain culture shows VRE, covered by Tigeclycine; repeat cultures NGTD - high volume output from drains, will keep in place for now; will remove drains tomorrow - Pain control PRN - ADAT - further recs per Dr. Richard surgical attending Kavon Stevens PGY1
[2017-06-15] MEDS: (Novolog) Insulin Aspart, Recombinant 100 u/ml 10 ml vial SC SCH ×7 (08:11→21:50)
[2017-06-15] MEDS ORDERED: Tolvaptan 15 MG TAB PO ONE (08:48)
--- NOTE | 2017-06-15 09:23 | CP.PCM.PN ---
<MonkMegha medina - Last Filed: 06/15/17 15:50> Subjective - Date & Time of Evaluation Date of Evaluation: 06/15/17 Time of Evaluation: 07:00 - Subjective Subjective: Medicine Progress Note: Patient was seen and examined at bedside in the AM. Patient states she ate oatmeal this morning and she did eat food from home yesterday. She denies nausea, vomiting, fever or abdominal pain. She states she is ready to start her treatment for her cancer. Objective - Vital Signs/Intake and Output Vital Signs (last 24 hours): Temp Pulse Resp BP Pulse Ox 97.5 F L 70 20 143/76 98 06/15/17 07:20 06/15/17 07:20 06/15/17 07:20 06/15/17 07:20 06/15/17 07:20 Intake and Output: 06/15/17 06/15/17 06:59 18:59 Intake Total 336 Output Total 1340 Balance -1004 - Medications Medications: Current Medications Acetaminophen (Tylenol 650mg/20.3ml Solution Ud) 650 mg PO Q4H PRN PRN Reason: Pain, moderate (4-7) Last Admin: 06/14/17 17:40 Dose: 650 mg Albumin Human (Albumin Human 25% (12.5 Gm/50 Ml)) 12.5 gm IV Q6H [facility] Stop: 06/16/17 03:01 Calcium Carbonate (Oscal) 500 mg PO BID [facility] Last Admin: 06/14/17 17:38 Dose: 500 mg Dextrose (Dextrose 50% Inj) 0 ml IV STAT PRN; Protocol PRN Reason: Hypoglycemia Protocol Dextrose (Glutose 15) 0 gm PO ONCE PRN; Protocol PRN Reason: Hypoglycemia Protocol Diltiazem HCl (Cardizem Cd) 120 mg PO DAILY [facility] Last Admin: 06/14/17 10:14 Dose: 120 mg Ergocalciferol (Drisdol 50,000 Intl Units Cap) 1 cap PO Q7D [facility] Stop: 07/20/17 06:15 Last Admin: 06/15/17 05:48 Dose: 1 cap Furosemide (Lasix) 20 mg PO BID [facility] Last Admin: 06/14/17 17:39 Dose: 20 mg Glucagon (Glucagen Diagnostic Kit) 0 mg IM STAT PRN; Protocol PRN Reason: Hypoglycemia Protocol Fluconazole (Diflucan Iv 100 Mg/50 Ml Ns) 50 mls @ 50 mls/hr IVPB DAILY [facility] Last Admin: 06/14/17 10:14 Dose: 50 mls/hr Tigecycline 50 mg/ Sodium (Chloride) 100 mls @ 100 mls/hr IVPB Q12H [facility] Last Admin: 06/15/17 06:26 Dose: 100 mls/hr Fat Emulsion Intravenous (Intralipid 20%) 500 mls @ 42 mls/hr IV TTS [facility] Last Admin: 06/13/17 18:11 Dose: 42 mls/hr Multivitamins/Vitamin C 10 ml/Chromium/Copper/Manganese/Zinc 1 ml/ Amino Acids 1,011 mls @ 42 mls/hr IV .Q24H [facility] Stop: 06/15/17 17:59 Last Admin: 06/14/17 17:39 Dose: 42 mls/hr Multivitamins/Vitamin C 10 ml/Chromium/Copper/Manganese/Zinc 1 ml/ Amino Acids 1,011 mls @ 42 mls/hr IV .Q24H [facility] Stop: 06/16/17 17:59 Insulin Aspart (Novolog) 0 unit SC ACHS [facility] PRN Reason: Protocol Last Admin: 06/15/17 08:11 Dose: Not Given Insulin Aspart (Novolog) 3 unit SC AC [facility] Last Admin: 06/15/17 08:11 Dose: Not Given Insulin Glargine (Lantus) 10 unit SC HS [facility] Last Admin: 06/14/17 22:16 Dose: 10 units Labetalol HCl (Trandate) 100 mg PO BID [facility] Last Admin: 06/14/17 17:42 Dose: Not Given Pantoprazole Sodium (Protonix Ec Tab) 40 mg PO DAILY [facility] Last Admin: 06/14/17 10:14 Dose: 40 mg Saccharomyces Boulardii (Florastor) 250 mg PO DAILY [facility] Last Admin: 06/14/17 10:14 Dose: 250 mg - Labs Labs: 06/15/17 07:04 06/15/17 07:04 PT 15.2 SECONDS (9.7-12.2) H 06/10/17 07:39 INR 1.3 06/10/17 07:39 APTT 33 SECONDS (21-34) 06/10/17 07:39 - Constitutional Appears: No Acute Distress, Chronically Ill - Head Exam Head Exam: ATRAUMATIC, NORMAL INSPECTION - Eye Exam Eye Exam: EOMI, Normal appearance - ENT Exam ENT Exam: Mucous Membranes Moist - Respiratory Exam Respiratory Exam: Clear to Ausculation Bilateral, NORMAL BREATHING PATTERN - Cardiovascular Exam Cardiovascular Exam: REGULAR RHYTHM, +S1, +S2 - GI/Abdominal Exam GI & Abdominal Exam: Soft, Normal Bowel Sounds. absent: Tenderness Additional comments: colostomy bag - clean/dry/intact [address] - clean/dry/intact - Extremities Exam Extremities Exam: Pedal Edema (+2 bilateral pedal edema ) - Neurological Exam Neurological Exam: Alert, Awake, Oriented x3 - Psychiatric Exam Psychiatric exam: Normal Affect, Normal Mood - Skin Skin Exam: Normal Color, Warm Assessment and Plan - Assessment and Plan (Free Text) Assessment: 1). Sigmoid colon mass/Liver lesion likely mets/Weight loss and abdominal pain * CT-Abd/Pelvis on admission showed 8.6 cm sigmoid mass with extensive hepatic metastasis. Bilateral renal cysts with large right upper pole renal cyst. Small bilateral pleural effusion and small pericardial effusion. Small hiatal hernia. Possible small diverticulum of the herniated stomach * Repeat Abd/Pel CT (05/30): no ureteral injury; bulk tumor in pelvis and hepatic mets disease; increasing pleural effusion in consolidative changes at the lung base; stable pericardial effusion; severe post-op anasarca. * CEA elevated @ 11.6. (Normal = 0-3.0) * Colonscopy (05/22/17): Non-bleeding external and internal hemorrhoids. 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 At the level of the distal sigmoid colon, contrast slowly traversed through a very thin and irregular channel to the level of the mid sigmoid at the site of the known sigmoid carcinoma. Contrast did not flow freely past this level. Exam was subsequently terminated. These findings were concerning for a near complete obstruction of the bowel lumen from the adjacent obstructing tumor. * Clear ensure ordered and Clear liquid diet started. * Venous dopplers UE&LE b/l ordered due to edema and cancer: f/u results * Calorie count and monitoring Consults * GI consult Dr Foster ,appreciated * recommends peripheral hyperalimentation * Started PPN on 06/13/17 * Dr Bright oncology consult --> help appreciated appreciated * Surgery consult Dr Richard --> help appreciated * 05/25/17: Patient underwent laparotomy with diverting colostomy and liver biopsy. She was found to have the colonic mass invading the bladder and therefore was not entirely resectable * Liver Biopsy: necrotic tissue * Stoma revision completed 06/10/17 . 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 Sepsis * leukocytosis, bandemia * procalcitonin trending down: 4.15 --> 1.82--> 0.78 * Blood cx (05/28): no growth; urine cx: no growth * Peritoneal fluid stain: negative * Repeat blood cultures (05/29/17): negative * UA: 1+ protein, 1+ blood, 1+ LE, WBC29, RBC32, Occ bacteria * ID consulted: Dr. Maravilla --> help appreciated * Meropenem 1gm IV Q12 discontinued * Vanco 750mg IV Q24 discontinued * Discontinued Flagyl 500mg IV Q8h (started 05/30/17) * CXR (06/01): moderate left, small right pleural effusion; moderate venous congestions; confluent opacities in left mid to lower and right mid to lower lung; cardiomegaly * Urine Culture: Yeast species * Fluconazole 100mg po daily started 06/08 * f/u repeat culture 06/15/17 * f/u stool culture, ova and parasite * C diff negative * Stool leukocytes negative * DARRYL drain cx: VRE + * Tigecycline 100 mg IV x 1 dose 06/08/17 then 50 mg IV Q12H starting 06/09/17 * f/u repeat culture 06/15/17 3). DM 2 * Aspart ISS Q6H Low Dose * Accuchecks -moderate * Lantus 20 units HS (increased from 10 units on 06/03) * Novolog 3 units SCqAC * A1c: 8.4 4). Hypertension * Labetolol 100mg Q12H, Enalapril 15 mg Daily, and Cardizem [id number] Daily 5) Acute Anemia - Type and Screen - 2 units of PRBC to be given 06/08/17 - Tylenol 650mg to be given 30 minutes before each blood transfusion - Benadryl 25mg to be given 30 minutes before each blood transfusion - Lasix 10mg to be given 30 minutes before each blood transfusion - s/p transfusion of 2 units hemaglobin 12.3 * Continue to monitor 6). Pericardial effusion/cardiomegaly * Cardiology Consulted (Dr. Portillo) - help appreciated * as per Dr. Portillo, continue medical therapy; effusion is small; LV function is normal * ECHO (05/20/17): Diastolic Dysfunction Grade I-abnormal relaxation pattern, Trace TR and MR 7). Bilateral Renal Cysts * U/S Renal 05/26/17: Right Upper Pole renal cyst measures approximately 10.4x8.3x9.2 cm. Left upper pole renal cyst measures 2.2x1.4x1.6 cm * Will need follow up U/S in 6 months 8). Respiratory Acidosis * Patient was extubated on 05/26/17 and placed on BiPap and Bicarb Drip * Patient no longer on BiPap or bicarb drip 9). Pleural Effusion * CXR (06/01): moderate left, small right pleural effusion; moderate venous congestions; confluent opacities in left mid to lower and right mid to lower lung; cardiomegaly * Chest CT: moderate b/l pleural effusion with b/l lower lobe segmental/ subsegmental atelectasis; cardiomegaly with small pericardial effusion; probably widespread hepatic metastasis. * Continue Duonebs Q4 * Pulmonology consulted, Dr. Cherry, help appreciated * IR consulted for therapeutic thoracentesis for pleural effusions; as per IR, US showed small pleural effusions not amenable to thoracentisis. 10.) Hypervolemic Hyponatremia - likely secondary to SIADH - Nephrology Consult: Dr. Lennon --> help appreciated - Urine sodium 43 - Urine Osmolality 563 - 1.5L of fluid restriction - Lasix 20mg Po daily - Tolvaptan 15mg po x1 dose 06/08/17 11.) Hypocalcemia /Hypokalemia - Repleted. Will monitor with serial CMP's. 12.) IV Access - Consent was done with POA 13.) Hypoalbuminemia - 25% Albumin 12.5gm IV once 14.). DVT and GI prophylaxis * Heparin 5000sc Q8- HOLD * Dilaudid 0.5 mg IV Q4H PRN Severe Pain * Protonix 40 mg IV Q12H * PT/OT * Incentive spirometry * Palliative care: patient is DNR/DNI as of 05/29/17. Polst form completed. * Diet: Diabetic diet * Started PPN Romero Mckoy ([phone]) Niall Prabhakar ([phone]) as POA/Health Care Proxy Disposition: Patient accepted to [facility] in [place], [place]. Possible discharge Monday06/16/17. Pending repeat 06/15/17 urine and drain cultures to be negative. Case discussed with Dr. Isael Monk PGY-1 <Mamta Kirkland V - Last Filed: 06/16/17 06:24> Objective - Vital Signs/Intake and Output Vital Signs (last 24 hours): Temp Pulse Resp BP Pulse Ox 97.2 F L 71 20 107/64 98 06/16/17 00:00 06/16/17 00:00 06/16/17 00:00 06/16/17 00:00 06/16/17 00:00 Intake and Output: 06/15/17 06/16/17 18:59 06:59 Intake Total 662 302 Output Total 915 80 Balance -253 222 - Medications Medications: Current Medications Acetaminophen (Tylenol 650mg/20.3ml Solution Ud) 650 mg PO Q4H PRN PRN Reason: Pain, moderate (4-7) Last Admin: 06/14/17 17:40 Dose: 650 mg Calcium Carbonate (Oscal) 500 mg PO BID [facility] Last Admin: 06/15/17 18:28 Dose: 500 mg Dextrose (Dextrose 50% Inj) 0 ml IV STAT PRN; Protocol PRN Reason: Hypoglycemia Protocol Dextrose (Glutose 15) 0 gm PO ONCE PRN; Protocol PRN Reason: Hypoglycemia Protocol Diltiazem HCl (Cardizem Cd) 120 mg PO DAILY [facility] Last Admin: 06/15/17 10:41 Dose: 120 mg Ergocalciferol (Drisdol 50,000 Intl Units Cap) 1 cap PO Q7D [facility] Stop: 03/08/18 06:15 Last Admin: 06/15/17 05:48 Dose: 1 cap Furosemide (Lasix) 20 mg PO BID [facility] Last Admin: 06/14/17 17:39 Dose: 20 mg Glucagon (Glucagen Diagnostic Kit) 0 mg IM STAT PRN; Protocol PRN Reason: Hypoglycemia Protocol Fluconazole (Diflucan Iv 100 Mg/50 Ml Ns) 50 mls @ 50 mls/hr IVPB DAILY [facility] Last Admin: 06/15/17 12:00 Dose: 50 mls/hr Tigecycline 50 mg/ Sodium (Chloride) 100 mls @ 100 mls/hr IVPB Q12H [facility] Last Admin: 06/16/17 06:02 Dose: 100 mls/hr Fat Emulsion Intravenous (Intralipid 20%) 500 mls @ 42 mls/hr IV TTS [facility] Last Admin: 06/15/17 14:13 Dose: 42 mls/hr Multivitamins/Vitamin C 10 ml/Chromium/Copper/Manganese/Zinc 1 ml/ Amino Acids 1,011 mls @ 42 mls/hr IV .Q24H [facility] Stop: 06/16/17 17:59 Last Admin: 06/15/17 18:13 Dose: 42 mls/hr Insulin Aspart (Novolog) 0 unit SC ACHS [facility] PRN Reason: Protocol Last Admin: 06/15/17 21:50 Dose: 3 unit Insulin Aspart (Novolog) 3 unit SC AC [facility] Last Admin: 06/15/17 17:24 Dose: 3 unit Insulin Glargine (Lantus) 10 unit SC HS [facility] Last Admin: 06/15/17 21:51 Dose: 10 units Labetalol HCl (Trandate) 100 mg PO BID [facility] Last Admin: 06/15/17 18:51 Dose: 100 mg Pantoprazole Sodium (Protonix Ec Tab) 40 mg PO DAILY [facility] Last Admin: 06/15/17 10:40 Dose: 40 mg Saccharomyces Boulardii (Florastor) 250 mg PO DAILY [facility] Last Admin: 06/15/17 10:40 Dose: 250 mg - Labs Labs: 06/15/17 07:04 06/15/17 07:04 PT 15.2 SECONDS (9.7-12.2) H 06/10/17 07:39 INR 1.3 06/10/17 07:39 APTT 33 SECONDS (21-34) 06/10/17 07:39 Attending/Attestation - Attestation I have personally seen and examined this patient.: Yes I have fully participated in the care of the patient.: Yes I have reviewed all pertinent clinical information, including history, physical exam and plan: Yes Notes (Text): This is late computer entry for 06/15/17. Patient seen, examined and case discussed with day-time resident. Patient seen this morning. Patient is in better spirits. Patient reports she ate food from home. Patient is on day 3 of PPN. We have repeated the cultures yesterday from DARRYL Drain sites and I have discussed with the nurse to collect. We have also repeated urine culture as well to see if yeast infection has cleared; however results are not available yet. Discussed with case management, patient has a spot at [facility] [place] which is available when patient is stable for discharge. Will need to coordinate between specialists for discharge planning for possible 06/16/17. Assessment/Plan 1). Sigmoid Colon Mass/Liver Metastasis: * General surgery (Dr. Richard) on board-->help appreciated * hematology-oncology (Dr. Brandon Bright) on board-->help appreciated * Patient underwent laparotomy with diverting colostomy and liver biopsy on 05/25. She was found to have the colonic mass invading the bladder and therefore was not entirely resectable * KRAS mutation testing ordered by Heme/Onc Dr. Angella Bright and then outpatient Chemotherapy. * Revision of Colostomy by Surgery Dr. Richard performed morning 06/10/17 * 06/13: Questionable bloody stool-->stool studies were collected. monitor H/H/ Discussed with surgery resident chief on case. * 06/14: C. Dif negative, stool leukocyte negative 2). Hx Respiratory Acidosis 3). Sepsis * Infectious Disease (Dr. Maravilla) on board-->help appreciated * Urine Culture 05/30/17 shows NO growth * Urine Culture 06/04/17 showed Yeast and patient started on Fluconazole 100 mg PO 1x/day (06/08/17). Order repeat Urine Culture for 06/15/17. * Blood Culture 05/28/17 and 05/29/17 was negative at 5 days * Blood Culture 06/08/17 is negative to date * Peritoneal Fluid 05/30/17 showed NO growth * DARRYL Drain Culture x 1 06/04/17 showed VRE: Tigecycline 100 mg IV x 1 dose then 50 mg IV Q12H was started 06/09/17: DARRYL drains continue output clear yellow material. Repeat cultures set for 06/15/17 * Repeat DARRYL Drain cultures for 06/14/17--->monitor to determine if VRE+ has cleared or still requires IV Abx; surgery is considering removing the drains awaiting repeat cultures--->RESULTS PENDING 4). Hx DM 2 * Insulin was adjusted on evening 06/06/17 as Surgery was concerned about the blood glucose being in the high 200s. However due to this adjustment, patient had episode of hypoglycemia again on morning of 06/07/17. * Patient had another episode of hypoglycemia morning of 06/11/17. Because of this and until patient starts to eat a regular diet (she is currently on FULL LIQUID) her Lantus has bee reduced from 20 to 10 units starting at 10 PM . Continue premeal Aspart 3 Units SC. * Monitor nutrition and will need to adjust insulin if applicable 5). Hx HTN * Diltiazem CD 120 mg PO 1x/day * Labetolol 100 mg PO 2x/day 6). Anemia Likely Secondary To Chronic Disease/Colon CA * 2 Units of PRBC given 06/08/17 after PICC line placement: HgB/Hct are now stable * continue to monitor H/H 7). Pericardial Effusion/Cardiomegaly 8). Bilateral Renal Cysts 9). Leukocytosis Likely Secondary to Sepsis: see Assessment and Plan #3 * Mild increase in white count, continue to monitor 10). Hypervolemic Hyponatremia * Nephrology Dr. Lennon help appreciated * Lasix 20 mg PO 2x/day was restarted * NaCl 2 gm PO 3x/day was discontinued * Tolvaptan 15 mg PO x 1 dose 06/08/17: Na has normalized * On fluid restriction 11). Low Albumin * Likely secondary to recent surgery/poor intake * Albumin 12.5 gm x 4 doses finished on 06/07/17 * Given Albumin 12.5 gm on 06/12/17 given low albumin * Started PPN 06/13/17 12). Bilateral Pleural Effusion * As per CT Chest 06/02/17 * IR Dr. John attempted Thoracentesis but too small and not amenable to thoracentesis 13). Bilateral UE and LE Edema * Bilateral UE Doppler 06/03/17: Superficial Thrombosis Right Basilic Vein and NO DVT * Bilateral LE Doppler 06/03/17: NO DVT 14). Hypocalcemia * Calcium Gluconate 2 gm IV given 06/08/17 after PICC line placement: when corrected for low albumin, Ca now has normalized * Calcium Carbonate 500 mg PO 2x/day 15). Low Vitamin D * Vitamin D 50,000 Units once a week for 8 weeks starting 06/08/17 16). Hypokalemia * Repleted via PO and IV 06/10/17 and 06/11/17 * monitor and replete if necessary 17). Hypomagnesemia * Resolved 18). Prophylaxis * Duoneb PRN * Tylenol 650mg PO Q 4H PRN pain * Heparin placed on HOLD in light of low HgB/Hct on 06/08/17 * Protonix 40mg PO daily * Florastor 250mg PO daily 06/07/17: two phlebotomists attempted to draw blood for CBC but not successful. Attempted to get PICC line for access however patient declined and wanted to be left alone and agreed to have placed on 06/08/17. 06/08/17: PICC Line placed. Surgery Dr. Richard holding off on revision of Colostomy for now until patient more medical stable. 06/09/17: Patient has been medically optimized for revision of Colostomy for morning 06/10/17. Surgery Team has been notified. 06/10/17: S/P revision of Colostomy. Spoke with ANAYELI Adorno who was at bedside and she was updated. 06/11/17: Incentive Spirometry encouraged 10x every hour. PT Evaluation and Treatment to get patient out of bed and moving ordered. 06/12/17: Encourage PO intake, Given Albumin. Continue IV abx for VRE and IV antifungal for yeast, repeat cultures later this week, f/u surgery POD 2 Will need to clarify with case management in regards to placement. 06/13/17: Encourage PO intake. Start PPN. Continue IV abx for VRE and IV antifungal for yeast. Repeat cultures for 06/15/17. Patient had questionable bloody bowel movements. Stool samples collected 06/14/17: Continue IV abx for VRE and IV antifungal for yeast. Repeat DARRYL Drains and Urine culture (06/14/17). Surgery considering to remove drains if cultures are negative. Will need to follow-up with ID in regards to culture results to determine antibiotics length and time. Patient has placement at [facility] for discharge planning. 06/15/17: 06/14/17: Continue IV abx for VRE and IV antifungal for yeast. Awaiting Repeat DARRYL Drains and Urine culture (06/14/17). Surgery considering to remove drains if cultures are negative. Will need to follow-up with ID in regards to culture results to determine antibiotics length and time. Patient has placement at [facility] for discharge planning.
[2017-06-15] MEDS: Saccharomyces Boulardi 250 mg Cap PO SCH (10:40)
[2017-06-15] MEDS: Pantoprazole 40 mg EC Tab PO SCH (10:40)
[2017-06-15] MEDS: diltiaZEM 120 mg/24 Hours CD Cap PO SCH (10:41)
[2017-06-15] MEDS: Albumin Human 25% (12.5 gm/50 ml) IV SCH ×3 (10:45→20:56)
[2017-06-15] MEDS: Fluconazole IV 100mg/50 ml NS 50 ML IVPB SCH (12:00)
[2017-06-15] MEDS: Fat Emulsion 20% IV 500 ML IV SCH (14:13)
--- NOTE | 2017-06-15 16:00 | CP.PCM.PN ---
Subjective - Date & Time of Evaluation Date of Evaluation: 06/15/17 Time of Evaluation: 15:15 - Subjective Subjective: Trying to eat more. Objective - Vital Signs/Intake and Output Vital Signs (last 24 hours): Temp Pulse Resp BP Pulse Ox 97.7 F 70 20 127/71 96 06/15/17 15:53 06/15/17 15:53 06/15/17 15:53 06/15/17 15:53 06/15/17 15:53 Intake and Output: 06/15/17 06/15/17 06:59 18:59 Intake Total 336 Output Total 1340 Balance -1004 - Medications Medications: Current Medications Acetaminophen (Tylenol 650mg/20.3ml Solution Ud) 650 mg PO Q4H PRN PRN Reason: Pain, moderate (4-7) Last Admin: 06/14/17 17:40 Dose: 650 mg Albumin Human (Albumin Human 25% (12.5 Gm/50 Ml)) 12.5 gm IV Q6H [facility] Stop: 06/16/17 03:01 Last Admin: 06/15/17 10:45 Dose: 12.5 gm Calcium Carbonate (Oscal) 500 mg PO BID [facility] Last Admin: 06/15/17 10:40 Dose: 500 mg Dextrose (Dextrose 50% Inj) 0 ml IV STAT PRN; Protocol PRN Reason: Hypoglycemia Protocol Dextrose (Glutose 15) 0 gm PO ONCE PRN; Protocol PRN Reason: Hypoglycemia Protocol Diltiazem HCl (Cardizem Cd) 120 mg PO DAILY [facility] Last Admin: 06/15/17 10:41 Dose: 120 mg Ergocalciferol (Drisdol 50,000 Intl Units Cap) 1 cap PO Q7D [facility] Stop: 07/20/17 06:15 Last Admin: 06/15/17 05:48 Dose: 1 cap Furosemide (Lasix) 20 mg PO BID [facility] Last Admin: 06/14/17 17:39 Dose: 20 mg Glucagon (Glucagen Diagnostic Kit) 0 mg IM STAT PRN; Protocol PRN Reason: Hypoglycemia Protocol Fluconazole (Diflucan Iv 100 Mg/50 Ml Ns) 50 mls @ 50 mls/hr IVPB DAILY [facility] Last Admin: 06/15/17 12:00 Dose: 50 mls/hr Tigecycline 50 mg/ Sodium (Chloride) 100 mls @ 100 mls/hr IVPB Q12H [facility] Last Admin: 06/15/17 06:26 Dose: 100 mls/hr Fat Emulsion Intravenous (Intralipid 20%) 500 mls @ 42 mls/hr IV TTS [facility] Last Admin: 06/15/17 14:13 Dose: 42 mls/hr Multivitamins/Vitamin C 10 ml/Chromium/Copper/Manganese/Zinc 1 ml/ Amino Acids 1,011 mls @ 42 mls/hr IV .Q24H [facility] Stop: 06/15/17 17:59 Last Admin: 06/14/17 17:39 Dose: 42 mls/hr Multivitamins/Vitamin C 10 ml/Chromium/Copper/Manganese/Zinc 1 ml/ Amino Acids 1,011 mls @ 42 mls/hr IV .Q24H [facility] Stop: 06/16/17 17:59 Insulin Aspart (Novolog) 0 unit SC ACHS [facility] PRN Reason: Protocol Last Admin: 06/15/17 11:30 Dose: Not Given Insulin Aspart (Novolog) 3 unit SC AC [facility] Last Admin: 06/15/17 11:30 Dose: Not Given Insulin Glargine (Lantus) 10 unit SC HS [facility] Last Admin: 06/14/17 22:16 Dose: 10 units Labetalol HCl (Trandate) 100 mg PO BID [facility] Last Admin: 06/15/17 10:41 Dose: 100 mg Pantoprazole Sodium (Protonix Ec Tab) 40 mg PO DAILY [facility] Last Admin: 06/15/17 10:40 Dose: 40 mg Saccharomyces Boulardii (Florastor) 250 mg PO DAILY [facility] Last Admin: 06/15/17 10:40 Dose: 250 mg - Labs Labs: 06/15/17 07:04 06/15/17 07:04 PT 15.2 SECONDS (9.7-12.2) H 06/10/17 07:39 INR 1.3 06/10/17 07:39 APTT 33 SECONDS (21-34) 06/10/17 07:39 - Head Exam Head Exam: ATRAUMATIC - Eye Exam Eye Exam: Normal appearance - ENT Exam ENT Exam: Mucous Membranes Dry - Respiratory Exam Respiratory Exam: NORMAL BREATHING PATTERN - Cardiovascular Exam Cardiovascular Exam: +S1, +S2 - GI/Abdominal Exam GI & Abdominal Exam: Normal Bowel Sounds Assessment and Plan (1) Colon adenocarcinoma Assessment & Plan: stage IV outpatient treatment Status: Acute (2) Coagulopathy Status: Acute
[2017-06-15] MEDS ORDERED: PPN #3 IV ONE (18:00)
--- NOTE | 2017-06-15 20:22 | CP.PCM.PN ---
Subjective - Date & Time of Evaluation Date of Evaluation: 06/15/17 Time of Evaluation: 04:50 - Subjective Subjective: dictated Objective - Vital Signs/Intake and Output Vital Signs (last 24 hours): Temp Pulse Resp BP Pulse Ox 97.7 F 70 20 127/71 96 06/15/17 15:53 06/15/17 15:53 06/15/17 15:53 06/15/17 15:53 06/15/17 15:53 Intake and Output: 06/15/17 06/16/17 18:59 06:59 Intake Total 662 Output Total 915 Balance -253 - Medications Medications: Current Medications Acetaminophen (Tylenol 650mg/20.3ml Solution Ud) 650 mg PO Q4H PRN PRN Reason: Pain, moderate (4-7) Last Admin: 06/14/17 17:40 Dose: 650 mg Albumin Human (Albumin Human 25% (12.5 Gm/50 Ml)) 12.5 gm IV Q6H [facility] Stop: 06/16/17 03:01 Last Admin: 06/15/17 16:47 Dose: 12.5 gm Calcium Carbonate (Oscal) 500 mg PO BID [facility] Last Admin: 06/15/17 18:28 Dose: 500 mg Dextrose (Dextrose 50% Inj) 0 ml IV STAT PRN; Protocol PRN Reason: Hypoglycemia Protocol Dextrose (Glutose 15) 0 gm PO ONCE PRN; Protocol PRN Reason: Hypoglycemia Protocol Diltiazem HCl (Cardizem Cd) 120 mg PO DAILY [facility] Last Admin: 06/15/17 10:41 Dose: 120 mg Ergocalciferol (Drisdol 50,000 Intl Units Cap) 1 cap PO Q7D [facility] Stop: 07/20/17 06:15 Last Admin: 06/15/17 05:48 Dose: 1 cap Furosemide (Lasix) 20 mg PO BID [facility] Last Admin: 06/14/17 17:39 Dose: 20 mg Glucagon (Glucagen Diagnostic Kit) 0 mg IM STAT PRN; Protocol PRN Reason: Hypoglycemia Protocol Fluconazole (Diflucan Iv 100 Mg/50 Ml Ns) 50 mls @ 50 mls/hr IVPB DAILY [facility] Last Admin: 06/15/17 12:00 Dose: 50 mls/hr Tigecycline 50 mg/ Sodium (Chloride) 100 mls @ 100 mls/hr IVPB Q12H [facility] Last Admin: 06/15/17 18:28 Dose: 100 mls/hr Fat Emulsion Intravenous (Intralipid 20%) 500 mls @ 42 mls/hr IV TTS [facility] Last Admin: 06/15/17 14:13 Dose: 42 mls/hr Multivitamins/Vitamin C 10 ml/Chromium/Copper/Manganese/Zinc 1 ml/ Amino Acids 1,011 mls @ 42 mls/hr IV .Q24H [facility] Stop: 06/16/17 17:59 Last Admin: 06/15/17 18:13 Dose: 42 mls/hr Insulin Aspart (Novolog) 0 unit SC ACHS [facility] PRN Reason: Protocol Last Admin: 06/15/17 17:25 Dose: 3 unit Insulin Aspart (Novolog) 3 unit SC AC [facility] Last Admin: 06/15/17 17:24 Dose: 3 unit Insulin Glargine (Lantus) 10 unit SC HS [facility] Last Admin: 06/14/17 22:16 Dose: 10 units Labetalol HCl (Trandate) 100 mg PO BID [facility] Last Admin: 06/15/17 18:51 Dose: 100 mg Pantoprazole Sodium (Protonix Ec Tab) 40 mg PO DAILY [facility] Last Admin: 06/15/17 10:40 Dose: 40 mg Saccharomyces Boulardii (Florastor) 250 mg PO DAILY [facility] Last Admin: 06/15/17 10:40 Dose: 250 mg - Labs Labs: 06/15/17 07:04 06/15/17 07:04 PT 15.2 SECONDS (9.7-12.2) H 06/10/17 07:39 INR 1.3 06/10/17 07:39 APTT 33 SECONDS (21-34) 06/10/17 07:39
[2017-06-15] MEDS: (Lantus) Insulin Glargine, Recombinant SC SCH (21:51)
--- NOTE | 2017-06-15 23:16 | CP.PCM.PN ---
Subjective - Date & Time of Evaluation Date of Evaluation: 06/15/17 Time of Evaluation: 23:00 - Subjective Subjective: Patient reports feeling well, consuming more PO intake; breathing well; complaining about naqvi removed; Objective - Vital Signs/Intake and Output Vital Signs (last 24 hours): Temp Pulse Resp BP Pulse Ox 97.7 F 70 20 127/71 96 06/15/17 15:53 06/15/17 15:53 06/15/17 15:53 06/15/17 15:53 06/15/17 15:53 Intake and Output: 06/15/17 06/16/17 18:59 06:59 Intake Total 662 Output Total 915 80 Balance -253 -80 - Medications Medications: Current Medications Acetaminophen (Tylenol 650mg/20.3ml Solution Ud) 650 mg PO Q4H PRN PRN Reason: Pain, moderate (4-7) Last Admin: 06/14/17 17:40 Dose: 650 mg Albumin Human (Albumin Human 25% (12.5 Gm/50 Ml)) 12.5 gm IV Q6H [facility] Stop: 06/16/17 03:01 Last Admin: 06/15/17 20:56 Dose: 12.5 gm Calcium Carbonate (Oscal) 500 mg PO BID [facility] Last Admin: 06/15/17 18:28 Dose: 500 mg Dextrose (Dextrose 50% Inj) 0 ml IV STAT PRN; Protocol PRN Reason: Hypoglycemia Protocol Dextrose (Glutose 15) 0 gm PO ONCE PRN; Protocol PRN Reason: Hypoglycemia Protocol Diltiazem HCl (Cardizem Cd) 120 mg PO DAILY [facility] Last Admin: 06/15/17 10:41 Dose: 120 mg Ergocalciferol (Drisdol 50,000 Intl Units Cap) 1 cap PO Q7D [facility] Stop: 07/20/17 06:15 Last Admin: 06/15/17 05:48 Dose: 1 cap Furosemide (Lasix) 20 mg PO BID [facility] Last Admin: 06/14/17 17:39 Dose: 20 mg Glucagon (Glucagen Diagnostic Kit) 0 mg IM STAT PRN; Protocol PRN Reason: Hypoglycemia Protocol Fluconazole (Diflucan Iv 100 Mg/50 Ml Ns) 50 mls @ 50 mls/hr IVPB DAILY [facility] Last Admin: 06/15/17 12:00 Dose: 50 mls/hr Tigecycline 50 mg/ Sodium (Chloride) 100 mls @ 100 mls/hr IVPB Q12H [facility] Last Admin: 06/15/17 18:28 Dose: 100 mls/hr Fat Emulsion Intravenous (Intralipid 20%) 500 mls @ 42 mls/hr IV TTS [facility] Last Admin: 06/15/17 14:13 Dose: 42 mls/hr Multivitamins/Vitamin C 10 ml/Chromium/Copper/Manganese/Zinc 1 ml/ Amino Acids 1,011 mls @ 42 mls/hr IV .Q24H [facility] Stop: 06/16/17 17:59 Last Admin: 06/15/17 18:13 Dose: 42 mls/hr Insulin Aspart (Novolog) 0 unit SC ACHS [facility] PRN Reason: Protocol Last Admin: 06/15/17 21:50 Dose: 3 unit Insulin Aspart (Novolog) 3 unit SC AC [facility] Last Admin: 06/15/17 17:24 Dose: 3 unit Insulin Glargine (Lantus) 10 unit SC HS [facility] Last Admin: 06/15/17 21:51 Dose: 10 units Labetalol HCl (Trandate) 100 mg PO BID [facility] Last Admin: 06/15/17 18:51 Dose: 100 mg Pantoprazole Sodium (Protonix Ec Tab) 40 mg PO DAILY [facility] Last Admin: 06/15/17 10:40 Dose: 40 mg Saccharomyces Boulardii (Florastor) 250 mg PO DAILY [facility] Last Admin: 06/15/17 10:40 Dose: 250 mg - Labs Labs: 06/15/17 07:04 06/15/17 07:04 PT 15.2 SECONDS (9.7-12.2) H 06/10/17 07:39 INR 1.3 06/10/17 07:39 APTT 33 SECONDS (21-34) 06/10/17 07:39 - Constitutional Appears: Non-toxic, No Acute Distress - Eye Exam Eye Exam: Normal appearance. absent: Scleral icterus - ENT Exam ENT Exam: Mucous Membranes Moist - Respiratory Exam Respiratory Exam: Clear to Ausculation Bilateral. absent: Respiratory Distress - Cardiovascular Exam Cardiovascular Exam: RRR, +S1, +S2 - GI/Abdominal Exam GI & Abdominal Exam: Soft. absent: Distended, Tenderness - Extremities Exam Additional comments: markedly edematous arms and legs; - Neurological Exam Neurological Exam: Alert, Awake - Psychiatric Exam Psychiatric exam: Normal Affect, Normal Mood - Skin Skin Exam: Warm. absent: Cyanosis Assessment and Plan (1) Hyponatremia Assessment & Plan: Na again dropped today, gave single dose of tolvaptan 15 mg; continue 1L PO daily fluid restriction; holding loop diuretic for now; Status: Acute (2) Hypokalemia Assessment & Plan: Stable, continue to monitor, keep K ~4.0; Status: Acute (3) Hypertension Assessment & Plan: BP controlled, continue current meds; Status: Acute (4) Proteinuria Status: Acute (5) Hypocalcemia Status: Acute (6) Edema Assessment & Plan: Severely edematous with marked hypoalbuminemia; giving IV albumin 12.5g x 4 doses; will resume loop diuretic tomorrow; Status: Acute
--- NOTE | 2017-06-16 01:01 | PN ---
SUBJECTIVE: She was seen today. She was little more . She said she is trying to eat. Her colostomy was functioning now well and the her drains still had clear liquid. PHYSICAL EXAMINATION: VITAL SIGNS: T-max was 97.7, pulse 70, blood pressure 127/71, respirations are 20. GENERAL: She said she was going to go to rehab and will try to get stronger. She denied any other problems at this time, and she said she would be getting exercise to decrease the swelling in her leg. HEENT: Head is atraumatic, normocephalic. NECK: Supple. LUNGS: Clear. No crackles or rales present. HEART: S1, S2 is regular. ABDOMEN: Remain with the colostomy which was functioning. She still had the drains. Stapled site appeared intact. EXTREMITIES: Remain with edema. LABORATORY DATA: Labs are noted. White count is 11.3, hemoglobin 12.4, hematocrit 36.0, platelet count is 194. Sodium still remains low at 124 and creatinine is 0.5. She is on Tygacil and Diflucan. We have ordered urine culture. If urine culture is negative, probably she can get off all the antibiotics, and it would be better if the drains also come out but they are still draining, so I will wish her good luck and I will keep her off antibiotics if possible. Liborio Maravilla MD
[2017-06-16] MEDS: Albumin Human 25% (12.5 gm/50 ml) IV SCH (02:42)
[2017-06-16 07:28] LABS: BASO # 0.1 K/uL (0.0-0.2); BASO % 0.8 % (0.0-2.0); EOS # 0.1 K/uL (0.0-0.7); EOS % 0.6 % (0.0-4.0); HEMOGLOBIN 11.6 g/dL (11.0-16.0); LYMPH # 1.5 K/uL (1.0-4.3); LYMPH % 12.7 % (20.0-40.0); MEAN CELL VOLUME 86.7 fL (81.0-99.0); MEAN CORPUSCULAR HEMOGLOBIN 29.8 pg (27.0-31.0); MEAN CORPUSCULAR HGB CONC 34.4 g/dL (33.0-37.0); MEAN PLATELET VOLUME 8.6 fL (7.2-11.7); MONO # 0.8 K/uL (0.0-0.8); NEUT # 9.3 K/uL (1.8-7.0); NEUT % 78.9 % (50.0-75.0); RBC 3.88 Mil/uL (3.80-5.20); WHITE BLOOD COUNT 11.8 K/uL (4.8-10.8)
[2017-06-16] MEDS: (Novolog) Insulin Aspart, Recombinant 100 u/ml 10 ml vial SC SCH ×6 (07:39→17:44)
[2017-06-16 07:43] LABS: ALB/GLOB RATIO 0.8 (1.0-2.1); ALT/SGPT 20 U/L (9-52); AST/SGOT 25 U/L (14-36); BLOOD UREA NITROGEN 25 mg/dL (7-17); CALCIUM 7.5 mg/dl (8.6-10.4); GFR AFRICAN-AMERICAN > 60; GFR NON-AFRICAN AMERICAN > 60; MAGNESIUM 1.7 mg/dL (1.6-2.3)
--- NOTE | 2017-06-16 09:28 | CP.PCM.PN ---
Subjective - Date & Time of Evaluation Date of Evaluation: 06/16/17 Time of Evaluation: 06:35 - Subjective Subjective: General surgery progress note for Dr. Kenny Lemos, PGY-1 Pt S & E at bedside. Pt c/o urinate overnight, Bailey removed yesterday. Denies N & V, F & C. Is tolerating diet. Jah drains x 2 with serous output, #1 with 40cc/12h, #2 with 130cc/12H. Objective - Vital Signs/Intake and Output Vital Signs (last 24 hours): Temp Pulse Resp BP Pulse Ox 97.9 F 71 20 114/60 96 06/16/17 07:10 06/16/17 07:10 06/16/17 07:10 06/16/17 07:10 06/16/17 07:10 Intake and Output: 06/16/17 06/16/17 06:59 18:59 Intake Total 302 Output Total 80 Balance 222 - Medications Medications: Current Medications Acetaminophen (Tylenol 650mg/20.3ml Solution Ud) 650 mg PO Q4H PRN PRN Reason: Pain, moderate (4-7) Last Admin: 06/14/17 17:40 Dose: 650 mg Calcium Carbonate (Oscal) 500 mg PO BID [facility] Last Admin: 06/15/17 18:28 Dose: 500 mg Dextrose (Dextrose 50% Inj) 0 ml IV STAT PRN; Protocol PRN Reason: Hypoglycemia Protocol Dextrose (Glutose 15) 0 gm PO ONCE PRN; Protocol PRN Reason: Hypoglycemia Protocol Diltiazem HCl (Cardizem Cd) 120 mg PO DAILY [facility] Last Admin: 06/15/17 10:41 Dose: 120 mg Ergocalciferol (Drisdol 50,000 Intl Units Cap) 1 cap PO Q7D [facility] Stop: 07/20/17 06:15 Last Admin: 06/15/17 05:48 Dose: 1 cap Furosemide (Lasix) 20 mg PO BID [facility] Last Admin: 06/14/17 17:39 Dose: 20 mg Glucagon (Glucagen Diagnostic Kit) 0 mg IM STAT PRN; Protocol PRN Reason: Hypoglycemia Protocol Fluconazole (Diflucan Iv 100 Mg/50 Ml Ns) 50 mls @ 50 mls/hr IVPB DAILY [facility] Last Admin: 06/15/17 12:00 Dose: 50 mls/hr Tigecycline 50 mg/ Sodium (Chloride) 100 mls @ 100 mls/hr IVPB Q12H [facility] Last Admin: 06/16/17 06:02 Dose: 100 mls/hr Fat Emulsion Intravenous (Intralipid 20%) 500 mls @ 42 mls/hr IV TTS [facility] Last Admin: 06/15/17 14:13 Dose: 42 mls/hr Multivitamins/Vitamin C 10 ml/Chromium/Copper/Manganese/Zinc 1 ml/ Amino Acids 1,011 mls @ 42 mls/hr IV .Q24H [facility] Stop: 06/16/17 17:59 Last Admin: 06/15/17 18:13 Dose: 42 mls/hr Insulin Aspart (Novolog) 0 unit SC ACHS [facility] PRN Reason: Protocol Last Admin: 06/16/17 07:39 Dose: Not Given Insulin Aspart (Novolog) 3 unit SC AC [facility] Last Admin: 06/16/17 07:39 Dose: Not Given Insulin Glargine (Lantus) 10 unit SC HS [facility] Last Admin: 06/15/17 21:51 Dose: 10 units Metoprolol Tartrate (Lopressor) 12.5 mg PO BID [facility] Pantoprazole Sodium (Protonix Ec Tab) 40 mg PO DAILY [facility] Last Admin: 06/15/17 10:40 Dose: 40 mg Saccharomyces Boulardii (Florastor) 250 mg PO DAILY [facility] Last Admin: 06/15/17 10:40 Dose: 250 mg Spironolactone (Aldactone) 25 mg PO DAILY [facility] - Labs Labs: 06/16/17 07:12 06/16/17 07:12 PT 15.2 SECONDS (9.7-12.2) H 06/10/17 07:39 INR 1.3 06/10/17 07:39 APTT 33 SECONDS (21-34) 06/10/17 07:39 - Constitutional Appears: Non-toxic, No Acute Distress - Head Exam Head Exam: ATRAUMATIC, NORMAL INSPECTION, NORMOCEPHALIC - Eye Exam Eye Exam: EOMI, Normal appearance - ENT Exam ENT Exam: Mucous Membranes Moist, Normal Exam - Neck Exam Neck Exam: Normal Inspection - Respiratory Exam Respiratory Exam: NORMAL BREATHING PATTERN - Cardiovascular Exam Cardiovascular Exam: REGULAR RHYTHM - GI/Abdominal Exam GI & Abdominal Exam: Soft. absent: Distended, Firm, Guarding, Tenderness Additional comments: midline incision with slight gap and serous drainage from middle, no obvious fascial violation. Ostomy bag with brown soft stool. Medial aspect of stoma with retraction. - Extremities Exam Extremities Exam: Pedal Edema (bilaterally) - Neurological Exam Neurological Exam: Alert, Awake, Oriented x3 - Psychiatric Exam Psychiatric exam: Normal Affect, Normal Mood - Skin Skin Exam: Dry, Normal Color, Warm. 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
[2017-06-16] MEDS: Fluconazole IV 100mg/50 ml NS 50 ML IVPB SCH (10:27)
[2017-06-16] MEDS: Saccharomyces Boulardi 250 mg Cap PO SCH (10:28)
[2017-06-16] MEDS: Pantoprazole 40 mg EC Tab PO SCH (10:28)
[2017-06-16] MEDS: diltiaZEM 120 mg/24 Hours CD Cap PO SCH (10:29)
--- NOTE | 2017-06-16 14:15 | CP.PCM.DIS ---
<AddieinessaTan lestercindy Ricks - Last Filed: 06/16/17 17:15> Provider - Provider Date of Admission: 05/19/17 17:20 Attending physician: Mamta Kirkland DO Primary care physician: Dr. Pineda Consults: ID: Dr. Maravilla GI: Dr. Foster Hem/Onc: Dr. Bright General surgery: Dr. Richard Cardiology: Dr. Portillo Nephrology: Dr. Lennon Pulmonology: Dr. Cherry Time Spent in preparation of Discharge (in minutes): 45 Hospital Course - Lab Results Lab Results: Micro Results 06/14/17 15:30 Drainage Gram Stain - Final 06/14/17 15:30 Drainage Wound Culture - Preliminary NO GROWTH AFTER 24 HOURS 06/14/17 15:30 Other: Please Indicate Gram Stain - Final 06/14/17 15:30 Other: Please Indicate Wound Culture - Preliminary NO GROWTH AFTER 24 HOURS 06/14/17 15:30 Urine,Bailey Urine Culture - Final No Growth (<1,000 CFU/ML) 06/13/17 11:16 Stool Stool Culture - Final NO SALMONELLA, SHIGELLA OR CAMPYLOBACTER ISOLATED. 06/08/17 17:00 Blood Blood Culture - Final NO GROWTH AFTER 5 DAYS 06/08/17 17:00 Blood Gram Stain - Final TEST NOT PERFORMED 06/08/17 16:30 Blood Blood Culture - Final NO GROWTH AFTER 5 DAYS 06/08/17 16:30 Blood Gram Stain - Final TEST NOT PERFORMED 06/04/17 11:52 Other: Please Indicate Gram Stain - Final 06/04/17 11:52 Other: Please Indicate Wound Culture - Final No growth. 06/04/17 11:51 Other: Please Indicate Gram Stain - Final 06/04/17 11:51 Other: Please Indicate Wound Culture - Final Vancomycin Resistant E.faecium 06/04/17 10:09 Urine,Bailey Urine Culture - Final Yeast Species 05/29/17 21:38 Blood Blood Culture - Final NO GROWTH AFTER 5 DAYS 05/29/17 21:38 Blood Gram Stain - Final TEST NOT PERFORMED 05/29/17 21:38 Blood Blood Culture - Final NO GROWTH AFTER 5 DAYS 05/29/17 21:38 Blood Gram Stain - Final TEST NOT PERFORMED 05/30/17 09:48 Peritoneal Fluid Gram Stain - Final 05/30/17 09:48 Peritoneal Fluid Body Fluid Culture - Final No Growth 05/28/17 16:30 Blood-Venous Blood Culture - Final NO GROWTH AFTER 5 DAYS 05/28/17 16:30 Blood-Venous Gram Stain - Final TEST NOT PERFORMED 05/28/17 17:00 Blood-Venous Blood Culture - Final NO GROWTH AFTER 5 DAYS 05/28/17 17:00 Blood-Venous Gram Stain - Final TEST NOT PERFORMED 05/30/17 18:39 Naris MRSA Culture - Final MRSA NOT DETECTED 05/30/17 22:48 Urine,Bailey Urine Culture - Final No Growth (<1,000 CFU/ML) 05/28/17 15:34 Urine,Bailey Urine Culture - Final No Growth (<1,000 CFU/ML) 05/25/17 Unknown Naris MRSA Culture (Admit) - Final MRSA NOT DETECTED 05/25/17 Unknown Peritoneal Fluid Gram Stain - Final Most Recent Lab Values WBC 11.8 K/uL (4.8-10.8) H 06/16/17 07:12 RBC 3.88 Mil/uL (3.80-5.20) 06/16/17 07:12 Hgb 11.6 g/dL (11.0-16.0) 06/16/17 07:12 Hct 33.6 % (34.0-47.0) L 06/16/17 07:12 MCV 86.7 fL (81.0-99.0) 06/16/17 07:12 MCH 29.8 pg (27.0-31.0) 06/16/17 07:12 MCHC 34.4 g/dL (33.0-37.0) 06/16/17 07:12 RDW 18.0 % (11.5-14.5) H 06/16/17 07:12 Plt Count 163 K/uL (130-400) 06/16/17 07:12 MPV 8.6 fL (7.2-11.7) 06/16/17 07:12 Neut % (Auto) 78.9 % (50.0-75.0) H 06/16/17 07:12 Lymph % (Auto) 12.7 % (20.0-40.0) L 06/16/17 07:12 Parke % (Auto) 7.0 % (0.0-10.0) 06/16/17 07:12 Eos % (Auto) 0.6 % (0.0-4.0) 06/16/17 07:12 Baso % (Auto) 0.8 % (0.0-2.0) 06/16/17 07:12 Neut # (Auto) 9.3 K/uL (1.8-7.0) H 06/16/17 07:12 Lymph # (Auto) 1.5 K/uL (1.0-4.3) 06/16/17 07:12 Parke # (Auto) 0.8 K/uL (0.0-0.8) 06/16/17 07:12 Eos # (Auto) 0.1 K/uL (0.0-0.7) 06/16/17 07:12 Baso # (Auto) 0.1 K/uL (0.0-0.2) 06/16/17 07:12 Neutrophils % (Manual) 90 % (50-75) H 06/06/17 06:34 Band Neutrophils % 2 % (0-2) 06/04/17 08:16 Lymphocytes % (Manual) 6 % (20-40) L 06/06/17 06:34 Monocytes % (Manual) 4 % (0-10) 06/06/17 06:34 Eosinophils % (Manual) 7 % (0-4) H 06/04/17 08:16 Basophils % (Manual) 1 % (0-2) 06/04/17 08:16 Nucleated RBC % 1 % (0-0) H 05/26/17 06:11 Toxic Granulation Present 06/06/17 06:34 Platelet Estimate Normal (NORMAL) 06/06/17 06:34 Large Platelets Present 06/06/17 06:34 Giant Platelets Present 06/06/17 06:34 Polychromasia Slight 06/06/17 06:34 Hypochromasia (manual) Slight 06/06/17 06:34 Poikilocytosis (manual Slight 06/03/17 08:06 Anisocytosis (manual) Moderate 06/06/17 06:34 Target Cells Slight 06/04/17 08:16 Ovalocytes Slight 06/04/17 08:16 PT 15.2 SECONDS (9.7-12.2) H 06/10/17 07:39 INR 1.3 06/10/17 07:39 APTT 33 SECONDS (21-34) 06/10/17 07:39 Puncture Site Rb 06/01/17 08:55 pCO2 44 mm/Hg (35-45) 06/01/17 08:55 pO2 72 mm/Hg (80-100) L 06/01/17 08:55 HCO3 30.1 mmol/L (21-28) H 06/01/17 08:55 ABG pH 7.46 (7.35-7.45) H 06/01/17 08:55 ABG Total CO2 32.7 mmol/L (22-28) H 06/01/17 08:55 ABG O2 Saturation 97.5 % (95-98) 06/01/17 08:55 ABG Base Excess 6.7 mmol/L (-2.0-3.0) H 06/01/17 08:55 ABG Hemoglobin 10.0 g/dL (11.7-17.4) L 06/01/17 08:55 ABG Carboxyhemoglobin 2.3 % (0.5-1.5) H 06/01/17 08:55 POC ABG HHb (Measured) 2.4 % (0.0-5.0) 06/01/17 08:55 ABG Methemoglobin 1.3 % (0.0-3.0) 06/01/17 08:55 Candelario Test Na 06/01/17 08:55 ABG Potassium 4.3 mmol/L (3.6-5.2) 05/26/17 11:31 A-a O2 Difference 66.0 mm/Hg 06/01/17 08:55 Respiratory Index 0.9 06/01/17 08:55 Hgb O2 Saturation 93.9 % (95.0-98.0) L 06/01/17 08:55 Sodium 133.0 mmol/l (132-148) 05/26/17 11:31 Chloride 106.0 mmol/L (98-107) 05/26/17 11:31 Glucose 187 mg/dl (65-105) H 05/26/17 11:31 Lactate 1.1 mmol/L (0.7-2.1) 05/26/17 11:31 Liter Flow 2.0 06/01/17 08:55 Vent Mode Prvc 05/26/17 05:06 Mechanical Rate 18 05/26/17 05:06 FiO2 27.0 % 06/01/17 08:55 Tidal Volume 450 05/26/17 05:06 PEEP 5 05/26/17 05:06 Sodium 135 mmol/L (132-148) 06/16/17 07:12 Potassium 3.6 mmol/L (3.6-5.2) 06/16/17 07:12 Chloride 96 mmol/L (98-107) L 06/16/17 07:12 Carbon Dioxide 33 mmol/L (22-30) H 06/16/17 07:12 Anion Gap 10 (10-20) 06/16/17 07:12 BUN 25 mg/dL (7-17) H 06/16/17 07:12 Creatinine 0.5 mg/dL (0.7-1.2) L 06/16/17 07:12 Est GFR ( Amer) > 60 06/16/17 07:12 Est GFR (Non-Af Amer) > 60 06/16/17 07:12 POC Glucose (mg/dL) 96 mg/dL (65-110) 06/16/17 11:24 Random Glucose 109 mg/dL (65-105) H 06/16/17 07:12 Hemoglobin A1c 8.4 % (4.2-6.5) H 06/02/17 17:27 Serum Osmolality 290 mosm/kg (272-300) 05/26/17 16:43 Lactic Acid 2.0 mmol/L (0.7-2.1) 05/26/17 06:11 Calcium 7.5 mg/dl (8.6-10.4) L 06/16/17 07:12 Iron 13 ug/dL (37-170) L 06/07/17 07:36 TIBC 123 ug/dL (250-450) L 06/07/17 07:36 % Saturation 10 (20-55) L 06/07/17 07:36 Phosphorus 3.4 mg/dL (2.5-4.5) 06/16/17 07:12 Magnesium 1.7 mg/dL (1.6-2.3) 06/16/17 07:12 Ferritin 899.0 ng/mL 06/07/17 07:36 Total Bilirubin 0.4 mg/dL (0.2-1.3) 06/16/17 07:12 AST 25 U/L (14-36) 06/16/17 07:12 ALT 20 U/L (9-52) 06/16/17 07:12 Alkaline Phosphatase 323 U/L (38-126) H 06/16/17 07:12 Ammonia < 9 umol/L (9-33) L 06/08/17 17:15 Troponin I < 0.0120 ng/mL (0.00-0.120) 05/25/17 15:26 NT-Pro-B Natriuret Pep 1160 pg/mL (0-900) H 05/25/17 16:51 Total Protein 4.6 g/dL (6.3-8.3) L 06/16/17 07:12 Albumin 2.0 g/dL (3.5-5.0) L 06/16/17 07:12 Globulin 2.5 gm/dL (2.2-3.9) 06/16/17 07:12 Albumin/Globulin Ratio 0.8 (1.0-2.1) L 06/16/17 07:12 Lipase 20 U/L (23-300) L 05/19/17 12:42 Carcinoembryonic Ag 11.6 ng/mL (0-3.0) H 05/20/17 07:13 25-OH Vitamin D Total < 12.8 NG/ML (30.0-100.0) L 06/07/17 07:36 Procalcitonin 0.78 NG/ML (0.19-0.49) H 06/03/17 08:06 Calcium (PTH Intact) 7.4 mg/dL (8.6-10.4) L 06/08/17 17:15 PTH w/Ion &Tot Calcium 84 pg/mL (14-64) H 06/08/17 17:15 Arterial Blood Potassium 4.3 mmol/L (3.6-5.2) 05/26/17 11:31 Urine Color Yellow (YELLOW) 06/06/17 14:18 Urine Clarity Hazy (Clear) 06/06/17 14:18 Urine pH 5.0 (5.0-8.0) 06/06/17 14:18 Ur Specific [place] 1.017 (1.003-1.030) 06/06/17 14:18 Urine Protein 1+ mg/dL (NEGATIVE) H 06/06/17 14:18 Urine Glucose (UA) 3+ mg/dL (Normal) H 06/06/17 14:18 Urine Ketones Trace mg/dL (NEGATIVE) 06/06/17 14:18 Urine Blood 1+ (NEGATIVE) H 06/06/17 14:18 Urine Nitrate Negative (NEGATIVE) 06/06/17 14:18 Urine Bilirubin Negative (NEGATIVE) 06/06/17 14:18 Urine Urobilinogen Normal mg/dL (0.2-1.0) 06/06/17 14:18 Ur Leukocyte Esterase 1+ Theodora/uL (Negative) H 06/06/17 14:18 Urine WBC (Auto) 6 /hpf (0-5) H 06/06/17 14:18 Urine RBC (Auto) 6 /hpf (0-3) H 06/06/17 14:18 Ur Squamous Epith Cells < 1 /hpf (0-5) 06/06/17 14:18 Calcium Oxalate Crystal Occ /hpf (<OCC) H 06/06/17 14:18 Urine Bacteria Rare (<OCC) 06/06/17 14:18 Hyaline Casts 3-5 /lpf (0-2) H 05/19/17 12:07 Ur Yeast w Hyphae Few /lpf (NEGATIVE) H 06/04/17 15:23 Urine Yeast (Budding) Many /hpf (NEGATIVE) H 06/04/17 15:23 Urine Osmolality 563 mosm/kg (300-1000) 06/06/17 14:18 Ur Random Creatinine 84.6 mg/dL 06/06/17 22:50 U Random Total Protein 42.0 mg/dL (0.0-12.0) H 06/06/17 22:49 Ur Random Sodium 43 mmol/L 06/06/17 14:18 Urine Collection Time 24 HRS 05/27/17 18:41 Urine Total Volume 1625 mL 05/27/17 18:41 Creatinine Clearance 32.0 mL/min (87-107) L 05/27/17 18:41 Urine Microalbumin 34.6 mg/L (0.0-16.6) H 06/06/17 22:50 Fluid Source Peritoneal 05/25/17 14:22 Fluid Appearance Sl cloudy (CLEAR) 05/25/17 14:22 Fluid WBC 125.0 /mm3 (0.0-300.0) 05/25/17 14:22 Fluid RBC 316.0 /mm3 (0.0-0.0) H 05/25/17 14:22 Fluid Tot Cell Count 100 (0-0) H 05/25/17 14:22 Fluid Neutrophils 3.0 % (0-0) H 05/25/17 14:22 Fluid Lymphocytes 96.0 % (0-0) H 05/25/17 14:22 Fld Monocyte/Macrophag 1 % (0-0) H 05/25/17 14:22 Fluid Diff Path Review 05/25/17 14:22 Fluid Comment 05/25/17 14:22 Stool Occult Blood Positive (NEGATIVE) H 05/23/17 07:16 Stool Leukocytes, Qual Negative (NEGATIVE) 06/13/17 11:17 Vancomycin Trough < 5.0 ug/mL (5.0-10.0) L 06/06/17 17:04 C. difficile Ag & Toxin Negative (NEGATIVE) 06/13/17 11:17 Blood Type O POSITIVE 06/08/17 17:15 Antibody Screen Negative 06/08/17 17:15 - Hospital Course Hospital Course: HPI: Patient is an 86 year old female with a PMHx of DMII, and HTN who presents with diffusely radiating, 10/10, sharp LLQ abdominal pain x 1 month. Patient states that every time she eats the pain is exacerbated and she has non- bloody diarrhea 30-40 minutes post meals. She denies any relieving factors. Patient has tried Pepto-Bismol and Immodium to relieve her symptoms without success. She admits to 30lbs weight loss in the past 7 months. She denies any fevers, chills, nausea, or vomiting. She does admit to a decrease in her urinary frequency, but denies any hematuria, dyuria, or back pain. ROS POSITIVES: Abdominal pain, NBNB Diarrhea, bloating, dec. urinary frequency NEGATIVES: Fever, chills, chest pain, SOB, nausea, vomiting, constipation, generalized weakness, LH, hematuria, dysuria, PMD: Dr. Leigh Pineda PMHx: HTN, DMII PSHx: Total Hysterectomy (30 years ago due to fibroids) Allergies: NKDA Social Hx: Denies tobacco, alcohol, or illicit drug use. Lives alone in [place]. 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 Of note, patient had sister in law who post colonoscopy from perforation. Meds: Labetelol 100 Q12H, Metformin 1000 BID Hospital Course: Patient presented to the ED with diffusely radiating abdominal pain for 1 month and a 30lb weight loss in 7 months. On admission GI- Dr. Foster ; Oncology - Dr. Bright; Surgery - Dr. Richard were all consulted. A CT of the abdomen was done which showed large colonic mass in the sigmoid colon and also multiple liver lesions suggestive of mets. Patient was scheduled for a colonoscopy. Cardiology, Dr. Portillo, was consulted and evaluated the patient and stated no contraindication to the planned colonoscopy. CT-Abd/Pelvis on admission showed 8.6 cm sigmoid mass with extensive hepatic metastasis; bilateral renal cysts with large right upper pole renal cyst; small bilateral pleural effusion and small pericardial effusion; small hiatal hernia; possible small diverticulum of the herniated stomach. Barium Enema (05/23/2017): Contrast flowed freely through the rectum to the level of the distal sigmoid colon. At the level of the distal sigmoid colon, contrast slowly traversed through a very thin and irregular channel to the level of the mid sigmoid at the site of the known sigmoid carcinoma. Contrast did not flow freely past this level. Exam was subsequently terminated. These findings were concerning for a near complete obstruction of the bowel lumen from the adjacent obstructing tumor. ECHO (05/20/17 ) showed diastolic Dysfunction Grade I-abnormal relaxation pattern, Trace TR and MR. Colonoscopy was performed (05/22/17), which showed non-bleeding external and internal hemorrhoids; malignant, partially obstructing tumor in the sigmoid colon(biopsied). Exploratory laparatomy, diverting colostomy, liver biopsy procedure was done on 05/25/17. However the sigmoid mass was invading the bladder and therefore was not entirely resectable. Patient was transferred to ICU after surgery for observation. Liver biopsy showed necrotic material. Patient was transferred out of ICU on 05/28/16. Patient was found to have Leukocytosis and bandemia for which she was continued on antibiotics Flagly and cipro IV. Infectious disease, Dr. Maravilla, was consulted as well. 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 Urine culture was positive for Yeast and patient was started on Diflucan. Patient was set up for a colostomy revision with Dr. Richard 06/10/17. Prior to the surgery, Learning Consultant, Dr. Lennon , was consulted due to hypervolemic/hyponatremia. Patient was given Lasix, NaCl and Tolvaptan and sodium was normalized. Prior to surgery patient was also given 2 units of PRBC due to acute anemia likely secondary to chronic disease/colon cancer. Status post colostomy revision patient denies any complaints except for decreased appetite. Patient was started on PPN in addition to a regular diet. Palliative care Lianne was consulted for goals of care. She spoke with the patient's son who then agreed for the patient to be DNR/DNI. Patient's wishes is to have chemotherapy once she is out of the hospital. Dr. Bright, the oncologist, discussed the outpatient treatment options. Patient has been accepted to [facility] in [place], [place]. Repeat urine and drain cultures were negative. Diflucan and antibiotics were discontinued. Patient is stable for discharge to [facility] with drains in place. Drain care will be continued at [facility]. This is a brief summary of the hospital course. Please see EMR for more details. Discharge Exam - Head Exam Head Exam: ATRAUMATIC, NORMAL INSPECTION, NORMOCEPHALIC - Eye Exam Eye Exam: EOMI, Normal appearance - ENT Exam ENT Exam: Mucous Membranes Moist - Respiratory Exam Respiratory Exam: NORMAL BREATHING PATTERN. absent: Rales, Rhonchi, Wheezes, Respiratory Distress - Cardiovascular Exam Cardiovascular Exam: REGULAR RHYTHM, +S1, +S2 - GI/Abdominal Exam GI & Abdominal Exam: Normal Bowel Sounds, Soft. absent: Distended, Firm, Mass Additional comments: midline incision with dehiscence: dressing- clean, dry, intact. darvin drainx2- serous output. colostomy bag in place, stool noted. - Extremities Exam Extremities exam: pedal edema Additional comments: bilateral pitting edema of LE and UE - Neurological Exam Neurological exam: Alert, Oriented x3 - Psychiatric Exam Psychiatric exam: Normal Affect, Normal Mood - Skin Skin Exam: Dry, Normal Color, Warm Discharge Plan - Follow Up Plan Condition: GOOD Disposition: REHAB FACILITY/REHAB UNIT Instructions: Parenteral Nutrition (TPN or PPN) (By injection), Hypokalemia (DC ), Diabetes Mellitus Type 2 in Adults (DC), Acute Abdominal Pain (DC), Acute Abdominal Pain (GEN), Pericardial Effusion (DC), Hypocalcemia (DC), Edema (DC) Additional Instructions: Patient is medically stable for discharge to [facility]. Patient to follow-up with heme-oncology to start chemotherapy. patient does not need antibiotics on discharge. Patient to resume PPN on discharge. <Mamta Kirkland V - Last Filed: 06/16/17 22:50> Provider - Provider Date of Admission: 05/19/17 17:20 Attending physician: Mamta Kirkland DO Hospital Course - Lab Results Lab Results: Micro Results 06/14/17 15:30 Drainage Gram Stain - Final 06/14/17 15:30 Drainage Wound Culture - Preliminary NO GROWTH AFTER 24 HOURS 06/14/17 15:30 Other: Please Indicate Gram Stain - Final 06/14/17 15:30 Other: Please Indicate Wound Culture - Preliminary NO GROWTH AFTER 24 HOURS 06/14/17 15:30 Urine,Bailey Urine Culture - Final No Growth (<1,000 CFU/ML) 06/13/17 11:16 Stool Stool Culture - Final NO SALMONELLA, SHIGELLA OR CAMPYLOBACTER ISOLATED. 06/08/17 17:00 Blood Blood Culture - Final NO GROWTH AFTER 5 DAYS 06/08/17 17:00 Blood Gram Stain - Final TEST NOT PERFORMED 06/08/17 16:30 Blood Blood Culture - Final NO GROWTH AFTER 5 DAYS 06/08/17 16:30 Blood Gram Stain - Final TEST NOT PERFORMED 06/04/17 11:52 Other: Please Indicate Gram Stain - Final 06/04/17 11:52 Other: Please Indicate Wound Culture - Final No growth. 06/04/17 11:51 Other: Please Indicate Gram Stain - Final 06/04/17 11:51 Other: Please Indicate Wound Culture - Final Vancomycin Resistant E.faecium 06/04/17 10:09 Urine,Bailey Urine Culture - Final Yeast Species 05/29/17 21:38 Blood Blood Culture - Final NO GROWTH AFTER 5 DAYS 05/29/17 21:38 Blood Gram Stain - Final TEST NOT PERFORMED 05/29/17 21:38 Blood Blood Culture - Final NO GROWTH AFTER 5 DAYS 05/29/17 21:38 Blood Gram Stain - Final TEST NOT PERFORMED 05/30/17 09:48 Peritoneal Fluid Gram Stain - Final 05/30/17 09:48 Peritoneal Fluid Body Fluid Culture - Final No Growth 05/28/17 16:30 Blood-Venous Blood Culture - Final NO GROWTH AFTER 5 DAYS 05/28/17 16:30 Blood-Venous Gram Stain - Final TEST NOT PERFORMED 05/28/17 17:00 Blood-Venous Blood Culture - Final NO GROWTH AFTER 5 DAYS 05/28/17 17:00 Blood-Venous Gram Stain - Final TEST NOT PERFORMED 05/30/17 18:39 Naris MRSA Culture - Final MRSA NOT DETECTED 05/30/17 22:48 Urine,Bailey Urine Culture - Final No Growth (<1,000 CFU/ML) 05/28/17 15:34 Urine,Bailey Urine Culture - Final No Growth (<1,000 CFU/ML) 05/25/17 Unknown Naris MRSA Culture (Admit) - Final MRSA NOT DETECTED 05/25/17 Unknown Peritoneal Fluid Gram Stain - Final Most Recent Lab Values WBC 11.8 K/uL (4.8-10.8) H 06/16/17 07:12 RBC 3.88 Mil/uL (3.80-5.20) 06/16/17 07:12 Hgb 11.6 g/dL (11.0-16.0) 06/16/17 07:12 Hct 33.6 % (34.0-47.0) L 06/16/17 07:12 MCV 86.7 fL (81.0-99.0) 06/16/17 07:12 MCH 29.8 pg (27.0-31.0) 06/16/17 07:12 MCHC 34.4 g/dL (33.0-37.0) 06/16/17 07:12 RDW 18.0 % (11.5-14.5) H 06/16/17 07:12 Plt Count 163 K/uL (130-400) 06/16/17 07:12 MPV 8.6 fL (7.2-11.7) 06/16/17 07:12 Neut % (Auto) 78.9 % (50.0-75.0) H 06/16/17 07:12 Lymph % (Auto) 12.7 % (20.0-40.0) L 06/16/17 07:12 Parke % (Auto) 7.0 % (0.0-10.0) 06/16/17 07:12 Eos % (Auto) 0.6 % (0.0-4.0) 06/16/17 07:12 Baso % (Auto) 0.8 % (0.0-2.0) 06/16/17 07:12 Neut # (Auto) 9.3 K/uL (1.8-7.0) H 06/16/17 07:12 Lymph # (Auto) 1.5 K/uL (1.0-4.3) 06/16/17 07:12 Parke # (Auto) 0.8 K/uL (0.0-0.8) 06/16/17 07:12 Eos # (Auto) 0.1 K/uL (0.0-0.7) 06/16/17 07:12 Baso # (Auto) 0.1 K/uL (0.0-0.2) 06/16/17 07:12 Neutrophils % (Manual) 90 % (50-75) H 06/06/17 06:34 Band Neutrophils % 2 % (0-2) 06/04/17 08:16 Lymphocytes % (Manual) 6 % (20-40) L 06/06/17 06:34 Monocytes % (Manual) 4 % (0-10) 06/06/17 06:34 Eosinophils % (Manual) 7 % (0-4) H 06/04/17 08:16 Basophils % (Manual) 1 % (0-2) 06/04/17 08:16 Nucleated RBC % 1 % (0-0) H 05/26/17 06:11 Toxic Granulation Present 06/06/17 06:34 Platelet Estimate Normal (NORMAL) 06/06/17 06:34 Large Platelets Present 06/06/17 06:34 Giant Platelets Present 06/06/17 06:34 Polychromasia Slight 06/06/17 06:34 Hypochromasia (manual) Slight 06/06/17 06:34 Poikilocytosis (manual Slight 06/03/17 08:06 Anisocytosis (manual) Moderate 06/06/17 06:34 Target Cells Slight 06/04/17 08:16 Ovalocytes Slight 06/04/17 08:16 PT 15.2 SECONDS (9.7-12.2) H 06/10/17 07:39 INR 1.3 06/10/17 07:39 APTT 33 SECONDS (21-34) 06/10/17 07:39 Puncture Site Rb 06/01/17 08:55 pCO2 44 mm/Hg (35-45) 06/01/17 08:55 pO2 72 mm/Hg (80-100) L 06/01/17 08:55 HCO3 30.1 mmol/L (21-28) H 06/01/17 08:55 ABG pH 7.46 (7.35-7.45) H 06/01/17 08:55 ABG Total CO2 32.7 mmol/L (22-28) H 06/01/17 08:55 ABG O2 Saturation 97.5 % (95-98) 06/01/17 08:55 ABG Base Excess 6.7 mmol/L (-2.0-3.0) H 06/01/17 08:55 ABG Hemoglobin 10.0 g/dL (11.7-17.4) L 06/01/17 08:55 ABG Carboxyhemoglobin 2.3 % (0.5-1.5) H 06/01/17 08:55 POC ABG HHb (Measured) 2.4 % (0.0-5.0) 06/01/17 08:55 ABG Methemoglobin 1.3 % (0.0-3.0) 06/01/17 08:55 Candelario Test Na 06/01/17 08:55 ABG Potassium 4.3 mmol/L (3.6-5.2) 05/26/17 11:31 A-a O2 Difference 66.0 mm/Hg 06/01/17 08:55 Respiratory Index 0.9 06/01/17 08:55 Hgb O2 Saturation 93.9 % (95.0-98.0) L 06/01/17 08:55 Sodium 133.0 mmol/l (132-148) 05/26/17 11:31 Chloride 106.0 mmol/L (98-107) 05/26/17 11:31 Glucose 187 mg/dl (65-105) H 05/26/17 11:31 Lactate 1.1 mmol/L (0.7-2.1) 05/26/17 11:31 Liter Flow 2.0 06/01/17 08:55 Vent Mode Prvc 05/26/17 05:06 Mechanical Rate 18 05/26/17 05:06 FiO2 27.0 % 06/01/17 08:55 Tidal Volume 450 05/26/17 05:06 PEEP 5 05/26/17 05:06 Sodium 135 mmol/L (132-148) 06/16/17 07:12 Potassium 3.6 mmol/L (3.6-5.2) 06/16/17 07:12 Chloride 96 mmol/L (98-107) L 06/16/17 07:12 Carbon Dioxide 33 mmol/L (22-30) H 06/16/17 07:12 Anion Gap 10 (10-20) 06/16/17 07:12 BUN 25 mg/dL (7-17) H 06/16/17 07:12 Creatinine 0.5 mg/dL (0.7-1.2) L 06/16/17 07:12 Est GFR ( Amer) > 60 06/16/17 07:12 Est GFR (Non-Af Amer) > 60 06/16/17 07:12 POC Glucose (mg/dL) 183 mg/dL (65-110) H 06/16/17 15:30 Random Glucose 109 mg/dL (65-105) H 06/16/17 07:12 Hemoglobin A1c 8.4 % (4.2-6.5) H 06/02/17 17:27 Serum Osmolality 290 mosm/kg (272-300) 05/26/17 16:43 Lactic Acid 2.0 mmol/L (0.7-2.1) 05/26/17 06:11 Calcium 7.5 mg/dl (8.6-10.4) L 06/16/17 07:12 Iron 13 ug/dL (37-170) L 06/07/17 07:36 TIBC 123 ug/dL (250-450) L 06/07/17 07:36 % Saturation 10 (20-55) L 06/07/17 07:36 Phosphorus 3.4 mg/dL (2.5-4.5) 06/16/17 07:12 Magnesium 1.7 mg/dL (1.6-2.3) 06/16/17 07:12 Ferritin 899.0 ng/mL 06/07/17 07:36 Total Bilirubin 0.4 mg/dL (0.2-1.3) 06/16/17 07:12 AST 25 U/L (14-36) 06/16/17 07:12 ALT 20 U/L (9-52) 06/16/17 07:12 Alkaline Phosphatase 323 U/L (38-126) H 06/16/17 07:12 Ammonia < 9 umol/L (9-33) L 06/08/17 17:15 Troponin I < 0.0120 ng/mL (0.00-0.120) 05/25/17 15:26 NT-Pro-B Natriuret Pep 1160 pg/mL (0-900) H 05/25/17 16:51 Total Protein 4.6 g/dL (6.3-8.3) L 06/16/17 07:12 Albumin 2.0 g/dL (3.5-5.0) L 06/16/17 07:12 Globulin 2.5 gm/dL (2.2-3.9) 06/16/17 07:12 Albumin/Globulin Ratio 0.8 (1.0-2.1) L 06/16/17 07:12 Lipase 20 U/L (23-300) L 05/19/17 12:42 Carcinoembryonic Ag 11.6 ng/mL (0-3.0) H 05/20/17 07:13 25-OH Vitamin D Total < 12.8 NG/ML (30.0-100.0) L 06/07/17 07:36 Procalcitonin 0.78 NG/ML (0.19-0.49) H 06/03/17 08:06 Calcium (PTH Intact) 7.4 mg/dL (8.6-10.4) L 06/08/17 17:15 PTH w/Ion &Tot Calcium 84 pg/mL (14-64) H 06/08/17 17:15 Arterial Blood Potassium 4.3 mmol/L (3.6-5.2) 05/26/17 11:31 Urine Color Yellow (YELLOW) 06/06/17 14:18 Urine Clarity Hazy (Clear) 06/06/17 14:18 Urine pH 5.0 (5.0-8.0) 06/06/17 14:18 Ur Specific [place] 1.017 (1.003-1.030) 06/06/17 14:18 Urine Protein 1+ mg/dL (NEGATIVE) H 06/06/17 14:18 Urine Glucose (UA) 3+ mg/dL (Normal) H 06/06/17 14:18 Urine Ketones Trace mg/dL (NEGATIVE) 06/06/17 14:18 Urine Blood 1+ (NEGATIVE) H 06/06/17 14:18 Urine Nitrate Negative (NEGATIVE) 06/06/17 14:18 Urine Bilirubin Negative (NEGATIVE) 06/06/17 14:18 Urine Urobilinogen Normal mg/dL (0.2-1.0) 06/06/17 14:18 Ur Leukocyte Esterase 1+ Theodora/uL (Negative) H 06/06/17 14:18 Urine WBC (Auto) 6 /hpf (0-5) H 06/06/17 14:18 Urine RBC (Auto) 6 /hpf (0-3) H 06/06/17 14:18 Ur Squamous Epith Cells < 1 /hpf (0-5) 06/06/17 14:18 Calcium Oxalate Crystal Occ /hpf (<OCC) H 06/06/17 14:18 Urine Bacteria Rare (<OCC) 06/06/17 14:18 Hyaline Casts 3-5 /lpf (0-2) H 05/19/17 12:07 Ur Yeast w Hyphae Few /lpf (NEGATIVE) H 06/04/17 15:23 Urine Yeast (Budding) Many /hpf (NEGATIVE) H 06/04/17 15:23 Urine Osmolality 563 mosm/kg (300-1000) 06/06/17 14:18 Ur Random Creatinine 84.6 mg/dL 06/06/17 22:50 U Random Total Protein 42.0 mg/dL (0.0-12.0) H 06/06/17 22:49 Ur Random Sodium 43 mmol/L 06/06/17 14:18 Urine Collection Time 24 HRS 05/27/17 18:41 Urine Total Volume 1625 mL 05/27/17 18:41 Creatinine Clearance 32.0 mL/min (87-107) L 05/27/17 18:41 Urine Microalbumin 34.6 mg/L (0.0-16.6) H 06/06/17 22:50 Fluid Source Peritoneal 05/25/17 14:22 Fluid Appearance Sl cloudy (CLEAR) 05/25/17 14:22 Fluid WBC 125.0 /mm3 (0.0-300.0) 05/25/17 14:22 Fluid RBC 316.0 /mm3 (0.0-0.0) H 05/25/17 14:22 Fluid Tot Cell Count 100 (0-0) H 05/25/17 14:22 Fluid Neutrophils 3.0 % (0-0) H 05/25/17 14:22 Fluid Lymphocytes 96.0 % (0-0) H 05/25/17 14:22 Fld Monocyte/Macrophag 1 % (0-0) H 05/25/17 14:22 Fluid Diff Path Review 05/25/17 14:22 Fluid Comment 05/25/17 14:22 Stool Occult Blood Positive (NEGATIVE) H 05/23/17 07:16 Stool Leukocytes, Qual Negative (NEGATIVE) 06/13/17 11:17 Vancomycin Trough < 5.0 ug/mL (5.0-10.0) L 06/06/17 17:04 C. difficile Ag & Toxin Negative (NEGATIVE) 06/13/17 11:17 Blood Type O POSITIVE 06/08/17 17:15 Antibody Screen Negative 06/08/17 17:15 Attending/Attestation - Attestation I have personally seen and examined this patient.: Yes I have fully participated in the care of the patient.: Yes I have reviewed all pertinent clinical information, including history, physical exam and plan: Yes Notes (Text): Patient seen, examined and case discussed with day-time resident. Patient seen this morning. Patient is in better spirits. Patient reports she ate food from home. Patient is on day 4 of PPN. Resident has spoken the microbiology-->DARRYL Drains show no growth from the site and urine culture: no growth. Bailey discontinued. Resident has spoken with infectious disease in light of newest cultures-->no IV antibiotics needed upon discharge. I have spoken with Dr. Richard given the edel are removed and confirmed with social work that the facility can do DARRYL drain management as requested. I have informed oncology patient is ready for discharge for the facility, in preparation for outpatient chemotherapy. Patient ordered for PPN as supplement to start on Monday. patient is encouraged to eat as much as she can. patient is very eager about starting rehab. I have discussed with patient's POA discharge plans for today. Patient discharged to [facility] which supports PPN, drain management, and rehab. Discharge Diagnoses: 1). Sigmoid Colon Mass/Liver Metastasis: * General surgery (Dr. Richard) on board-->help appreciated * hematology-oncology (Dr. Brandon Bright) on board-->help appreciated * Patient underwent laparotomy with diverting colostomy and liver biopsy on 05/25. She was found to have the colonic mass invading the bladder and therefore was not entirely resectable * KRAS mutation testing ordered by Heme/Onc Dr. Angella Bright and then outpatient Chemotherapy. * Revision of Colostomy by Surgery Dr. Richard performed morning 06/10/17 * 06/13: Questionable bloody stool-->stool studies were collected. monitor H/H/ Discussed with surgery resident chief on case. * 06/14: C. Dif negative, stool leukocyte negative * 06/15: majority of edel removed per surgery, and 2 DARRYL drain cultures: show no growth; patient to follow-up outpatient for chemotherapy for palliation 2). Hx Respiratory Acidosis 3). Sepsis * Infectious Disease (Dr. Maravilla) on board-->help appreciated * Urine Culture 05/30/17 shows NO growth * Urine Culture 06/04/17 showed Yeast and patient started on Fluconazole 100 mg PO 1x/day (06/08/17). Order repeat Urine Culture for 06/15/17. * Blood Culture 05/28/17 and 05/29/17 was negative at 5 days * Blood Culture 06/08/17 is negative to date * Peritoneal Fluid 05/30/17 showed NO growth * DARRYL Drain Culture x 1 06/04/17 showed VRE: Tigecycline 100 mg IV x 1 dose then 50 mg IV Q12H was started 06/09/17: DARRYL drains continue output clear yellow material. Repeat cultures set for 06/15/17 * Repeat DARRYL Drain cultures for 06/14/17--->no growth for 24 hours; per ID, patient does not need IV antibiotics; surgery recommends to keep drains at this time of discharge for drain management 4). Hx DM 2 * Upon discharge, * Lantus 10 units subqHS * Novolog 3 units sub AC * Held patient's metformin upon discharge 5). Hx HTN * Discharge on: * Diltiazem CD 120 mg PO 1x/day * Labetolol 100 mg PO 2x/day 6). Anemia Likely Secondary To Chronic Disease/Colon CA * 2 Units of PRBC given 06/08/17 after PICC line placement: HgB/Hct are now stable * continue to monitor H/H 7). Pericardial Effusion/Cardiomegaly 8). Bilateral Renal Cysts 9). Leukocytosis Likely Secondary to Sepsis: see Assessment and Plan #3 * Mild increase in white count, continue to monitor * Repeat cultures are negative * No IV antibiotics needed for discharge per discussion with ID 10). Hypervolemic Hyponatremia * Nephrology Dr. Lennon help appreciated * Lasix 20 mg PO 2x/day was restarted * NaCl 2 gm PO 3x/day was discontinued * Tolvaptan 15 mg PO x 1 dose 06/08/17: Na has normalized * On fluid restriction * Sodium normalized 11). Low Albumin * Likely secondary to recent surgery/poor intake * Albumin 12.5 gm x 4 doses finished on 06/07/17 * Given Albumin 12.5 gm on 06/12/17 given low albumin * Started PPN 06/13/17-->to restart on Monday, Jun 19 at [facility] as supplement; since patient does eat and is encourage to keep eating 12). Bilateral Pleural Effusion * As per CT Chest 06/02/17 * IR Dr. John attempted Thoracentesis but too small and not amenable to thoracentesis 13). Bilateral UE and LE Edema * Bilateral UE Doppler 06/03/17: Superficial Thrombosis Right Basilic Vein and NO DVT * Bilateral LE Doppler 06/03/17: NO DVT 14). Hypocalcemia * Calcium Gluconate 2 gm IV given 06/08/17 after PICC line placement: when corrected for low albumin, Ca now has normalized * Calcium Carbonate 500 mg PO 2x/day 15). Low Vitamin D * Vitamin D 50,000 Units once a week for 8 weeks starting 06/08/17 16). Hypokalemia * Repleted via PO and IV 06/10/17 and 06/11/17 * monitor and replete if necessary 17). Hypomagnesemia * Resolved 18). Prophylaxis * Duoneb PRN * Tylenol 650mg PO Q 4H PRN pain * Heparin placed on HOLD in light of low HgB/Hct on 06/08/17 * Protonix 40mg PO daily * Florastor 250mg PO daily * PICC line * Ostomy care * Drain management * Bailey discontinued 06/16/17 06/07/17: two phlebotomists attempted to draw blood for CBC but not successful. Attempted to get PICC line for access however patient declined and wanted to be left alone and agreed to have placed on 06/08/17. 06/08/17: PICC Line placed. Surgery Dr. Richard holding off on revision of Colostomy for now until patient more medical stable. 06/09/17: Patient has been medically optimized for revision of Colostomy for morning 06/10/17. Surgery Team has been notified. 06/10/17: S/P revision of Colostomy. Spoke with ANAYELI Adorno who was at bedside and she was updated. 06/11/17: Incentive Spirometry encouraged 10x every hour. PT Evaluation and Treatment to get patient out of bed and moving ordered. 06/12/17: Encourage PO intake, Given Albumin. Continue IV abx for VRE and IV antifungal for yeast, repeat cultures later this week, f/u surgery POD 2 Will need to clarify with case management in regards to placement. 06/13/17: Encourage PO intake. Start PPN. Continue IV abx for VRE and IV antifungal for yeast. Repeat cultures for 06/15/17. Patient had questionable bloody bowel movements. Stool samples collected 06/14/17: Continue IV abx for VRE and IV antifungal for yeast. Repeat DARRYL Drains and Urine culture (06/14/17). Surgery considering to remove drains if cultures are negative. Will need to follow-up with ID in regards to culture results to determine antibiotics length and time. Patient has placement at [facility] for discharge planning. 06/15/17: Continue IV abx for VRE and IV antifungal for yeast. Awaiting Repeat DARRYL Drains and Urine culture (06/14/17). Surgery considering to remove drains if cultures are negative. Will need to follow-up with ID in regards to culture results to determine antibiotics length and time. Patient has placement at [facility] for discharge planning. 06/16/17: Repeat cultures are negative. No IV antibiotics needed upon discharge per discussion with ID. Surgery recommends to keep drains in placement. Facility supports drain management. Discussed with Dr. Richard, surgery upon discharge. Oncology is aware of discharge to follow-up for outpatient chemotherapy. PPN and medications reconcilated at time of discharge. Discussed with patient and patient's POA at time of discharge. Patient is medically stable for discharge for rehab.
--- NOTE | 2017-06-16 15:11 | PN ---
DATE: LOCATION: [facility], bed A. SUBJECTIVE: This is an 86-year-old female, still in the status of DNR and DNI, seen and examined in rounds without significant clinical changes or reported active bleeding, appeared to be somewhat more awake and oriented with reported polyuria, but no chills or fever. No chest pain or palpitations. No nausea or vomiting. The patient tolerating oral intake well. The entire chart is reviewed including, but not limited to, most recent lab and radiology study results, current and the previous medication list, current and the previous medical events. Case discussed with the staff at length. Today's lab shows white blood cells of 11.8 with normal hemoglobin, but low hematocrit 33.6, with CO2 content 33 indicative of respiratory alkalosis, with BUN of 25, elevated, but low creatinine, blood glucose level 123, alkaline phosphatase 323 with low albumin of 2, low total protein 4.6. PHYSICAL EXAMINATION: GENERAL: An 86-year-old female, somewhat more awake, alert. VITAL SIGNS: Afebrile with pulse of 74, respiratory rate 20 to 22, and blood pressure of 124/64. HEENT: Showed mildly pale, dry oral mucous membranes. Nonicteric sclerae. LUNGS: Scattered crepitation, decreased air entry at bases. HEART: Positive S1 and S2. ABDOMEN: Soft. Bowel sounds are present. No mass or organomegaly. No rebound tenderness or guarding. Colostomy opening is intact with small amount of semi-liquid, semi-solid fecal material. EXTREMITIES: Lower extremities: Edematous changes. No clubbing or cyanosis. NEUROLOGIC: No reported new neurological deficits, sensory or motor. IMPRESSION: 1. Colon cancer with metastatic lesion to the liver, treated surgically with colostomy formation. 2. Peptic ulcer disease. 3. Anemia secondary to above. 4. Recent urinary tract infection. 5. Recent history of pneumonia with pleural effusion. 6. Known history of hyperlipidemia, diabetes mellitus. 7. Electrolyte imbalance. 8. Anemia secondary to above. 9. Malnutrition with hypoalbuminemia, hypoproteinemia. SUGGESTIONS: 1. Continue current management. 2. Peripheral hyperalimentation. 3. Correct any underlying electrolyte imbalance. 4. No further aggressive GI workup. Sp Leblanc MD [facility] # [id number]
[2017-06-16 15:54] VITALS: PULSE 72; TEMP 98.3; O2SAT 95
[2017-06-16 17:59] VITALS: BP 134/72
[2017-06-16] MEDS ORDERED: PPN#4 IV SCH (18:00)
--- NOTE | 2017-06-16 19:19 | CP.PCM.PN ---
Objective - Vital Signs/Intake and Output Vital Signs (last 24 hours): Temp Pulse Resp BP Pulse Ox 98.3 F 72 20 134/72 95 06/16/17 15:00 06/16/17 15:00 06/16/17 15:00 06/16/17 17:58 06/16/17 15:00 Intake and Output: 06/16/17 06/17/17 18:59 06:59 Intake Total 160 Output Total 20 Balance 140 - Medications Medications: Current Medications Acetaminophen (Tylenol 650mg/20.3ml Solution Ud) 650 mg PO Q4H PRN PRN Reason: Pain, moderate (4-7) Last Admin: 06/14/17 17:40 Dose: 650 mg Calcium Carbonate (Oscal) 500 mg PO BID [facility] Last Admin: 06/16/17 17:59 Dose: 500 mg Dextrose (Dextrose 50% Inj) 0 ml IV STAT PRN; Protocol PRN Reason: Hypoglycemia Protocol Dextrose (Glutose 15) 0 gm PO ONCE PRN; Protocol PRN Reason: Hypoglycemia Protocol Diltiazem HCl (Cardizem Cd) 120 mg PO DAILY [facility] Last Admin: 06/16/17 10:29 Dose: 120 mg Ergocalciferol (Drisdol 50,000 Intl Units Cap) 1 cap PO Q7D [facility] Stop: 07/20/17 06:15 Last Admin: 06/15/17 05:48 Dose: 1 cap Furosemide (Lasix) 20 mg PO BID [facility] Last Admin: 06/16/17 17:58 Dose: 20 mg Glucagon (Glucagen Diagnostic Kit) 0 mg IM STAT PRN; Protocol PRN Reason: Hypoglycemia Protocol Fluconazole (Diflucan Iv 100 Mg/50 Ml Ns) 50 mls @ 50 mls/hr IVPB DAILY [facility] Last Admin: 06/16/17 10:27 Dose: 50 mls/hr Tigecycline 50 mg/ Sodium (Chloride) 100 mls @ 100 mls/hr IVPB Q12H [facility] Last Admin: 06/16/17 06:02 Dose: 100 mls/hr Fat Emulsion Intravenous (Intralipid 20%) 500 mls @ 42 mls/hr IV TTS [facility] Last Admin: 06/15/17 14:13 Dose: 42 mls/hr Multivitamins/Vitamin C 10 ml/Chromium/Copper/Manganese/Seleni/Zn 1 ml/ Amino Acids 1,011 mls @ 42 mls/hr IV .Q24H [facility] Stop: 06/17/17 17:59 Insulin Aspart (Novolog) 0 unit SC ACHS [facility] PRN Reason: Protocol Last Admin: 06/16/17 17:44 Dose: Not Given Insulin Aspart (Novolog) 3 unit SC AC [facility] Last Admin: 06/16/17 17:44 Dose: Not Given Insulin Glargine (Lantus) 10 unit SC HS [facility] Last Admin: 06/15/17 21:51 Dose: 10 units Metoprolol Tartrate (Lopressor) 12.5 mg PO BID [facility] Last Admin: 06/16/17 17:59 Dose: 12.5 mg Pantoprazole Sodium (Protonix Ec Tab) 40 mg PO DAILY [facility] Last Admin: 06/16/17 10:28 Dose: 40 mg Saccharomyces Boulardii (Florastor) 250 mg PO DAILY [facility] Last Admin: 06/16/17 10:28 Dose: 250 mg Spironolactone (Aldactone) 25 mg PO DAILY [facility] Last Admin: 06/16/17 10:28 Dose: 25 mg - Labs Labs: 06/16/17 07:12 06/16/17 07:12 PT 15.2 SECONDS (9.7-12.2) H 06/10/17 07:39 INR 1.3 06/10/17 07:39 APTT 33 SECONDS (21-34) 06/10/17 07:39 Assessment and Plan (1) Hyponatremia Status: Acute (2) Hypokalemia Status: Acute (3) Hypertension Status: Acute (4) Proteinuria Status: Acute (5) Hypocalcemia Status: Acute (6) Edema Status: Acute
--- NOTE | 2017-06-16 19:20 | CP.PCM.PN ---
Subjective - Date & Time of Evaluation Date of Evaluation: 06/16/17 Time of Evaluation: 12:05 - Subjective Subjective: No complaints. Objective - Vital Signs/Intake and Output Vital Signs (last 24 hours): Temp Pulse Resp BP Pulse Ox 98.3 F 72 20 134/72 95 06/16/17 15:00 06/16/17 15:00 06/16/17 15:00 06/16/17 17:58 06/16/17 15:00 Intake and Output: 06/16/17 06/17/17 18:59 06:59 Intake Total 160 Output Total 20 Balance 140 - Medications Medications: Current Medications Acetaminophen (Tylenol 650mg/20.3ml Solution Ud) 650 mg PO Q4H PRN PRN Reason: Pain, moderate (4-7) Last Admin: 06/14/17 17:40 Dose: 650 mg Calcium Carbonate (Oscal) 500 mg PO BID [facility] Last Admin: 06/16/17 17:59 Dose: 500 mg Dextrose (Dextrose 50% Inj) 0 ml IV STAT PRN; Protocol PRN Reason: Hypoglycemia Protocol Dextrose (Glutose 15) 0 gm PO ONCE PRN; Protocol PRN Reason: Hypoglycemia Protocol Diltiazem HCl (Cardizem Cd) 120 mg PO DAILY [facility] Last Admin: 06/16/17 10:29 Dose: 120 mg Ergocalciferol (Drisdol 50,000 Intl Units Cap) 1 cap PO Q7D [facility] Stop: 07/20/17 06:15 Last Admin: 06/15/17 05:48 Dose: 1 cap Furosemide (Lasix) 20 mg PO BID [facility] Last Admin: 06/16/17 17:58 Dose: 20 mg Glucagon (Glucagen Diagnostic Kit) 0 mg IM STAT PRN; Protocol PRN Reason: Hypoglycemia Protocol Fluconazole (Diflucan Iv 100 Mg/50 Ml Ns) 50 mls @ 50 mls/hr IVPB DAILY [facility] Last Admin: 06/16/17 10:27 Dose: 50 mls/hr Tigecycline 50 mg/ Sodium (Chloride) 100 mls @ 100 mls/hr IVPB Q12H [facility] Last Admin: 06/16/17 06:02 Dose: 100 mls/hr Fat Emulsion Intravenous (Intralipid 20%) 500 mls @ 42 mls/hr IV TTS [facility] Last Admin: 06/15/17 14:13 Dose: 42 mls/hr Multivitamins/Vitamin C 10 ml/Chromium/Copper/Manganese/Seleni/Zn 1 ml/ Amino Acids 1,011 mls @ 42 mls/hr IV .Q24H [facility] Stop: 06/17/17 17:59 Insulin Aspart (Novolog) 0 unit SC ACHS [facility] PRN Reason: Protocol Last Admin: 06/16/17 17:44 Dose: Not Given Insulin Aspart (Novolog) 3 unit SC AC [facility] Last Admin: 06/16/17 17:44 Dose: Not Given Insulin Glargine (Lantus) 10 unit SC HS [facility] Last Admin: 06/15/17 21:51 Dose: 10 units Metoprolol Tartrate (Lopressor) 12.5 mg PO BID [facility] Last Admin: 06/16/17 17:59 Dose: 12.5 mg Pantoprazole Sodium (Protonix Ec Tab) 40 mg PO DAILY [facility] Last Admin: 06/16/17 10:28 Dose: 40 mg Saccharomyces Boulardii (Florastor) 250 mg PO DAILY [facility] Last Admin: 06/16/17 10:28 Dose: 250 mg Spironolactone (Aldactone) 25 mg PO DAILY [facility] Last Admin: 06/16/17 10:28 Dose: 25 mg - Labs Labs: 06/16/17 07:12 06/16/17 07:12 PT 15.2 SECONDS (9.7-12.2) H 06/10/17 07:39 INR 1.3 06/10/17 07:39 APTT 33 SECONDS (21-34) 06/10/17 07:39 - Head Exam Head Exam: ATRAUMATIC - Eye Exam Eye Exam: Normal appearance - ENT Exam ENT Exam: Mucous Membranes Dry - Respiratory Exam Respiratory Exam: NORMAL BREATHING PATTERN - Cardiovascular Exam Cardiovascular Exam: +S1, +S2 - GI/Abdominal Exam GI & Abdominal Exam: Normal Bowel Sounds - Extremities Exam Extremities Exam: Pedal Edema Assessment and Plan (1) Colon adenocarcinoma Assessment & Plan: stage IV outpatient treatment. Status: Acute (2) Coagulopathy Status: Acute
== END 2017-06-16 19:48 | DRG 329 ==
LOC: C.ER 11:28 → C.9E 17:20 → C.3T 19:55 → C.9S 05-25 12:19 → C.9I 05-25 14:16 → C.6T 05-30 17:19 → C.5S 06-08 21:06
PROVIDERS: ADMIT Hospitalist; ATTEND Hospitalist
PROC: 0DBN8ZX Excision of Sigmoid Colon, Via Natural or Artificial Opening Endoscopic, Diagnostic (ICD-10-PCS; 2017-05-22)
PROC: 0FB03ZX Excision of Liver, Percutaneous Approach, Diagnostic (ICD-10-PCS; 2017-05-25)
PROC: 0D1N0Z4 Bypass Sigmoid Colon to Cutaneous, Open Approach (ICD-10-PCS; principal; 2017-05-25 10:00)
PROC: 0FB03ZX Excision of Liver, Percutaneous Approach, Diagnostic (ICD-10-PCS; 2017-05-31)
PROC: BF45ZZZ Ultrasonography of Liver (ICD-10-PCS; 2017-05-31)
PROC: 30233N1 Transfusion of Nonautologous Red Blood Cells into Peripheral Vein, Percutaneous Approach (ICD-10-PCS; 2017-06-08)
PROC: 02HV33Z Insertion of Infusion Device into Superior Vena Cava, Percutaneous Approach (ICD-10-PCS; 2017-06-08)
PROC: B518ZZA Fluoroscopy of Superior Vena Cava, Guidance (ICD-10-PCS; 2017-06-08)
PROC: 0WQFXZ2 Repair Abdominal Wall, Stoma, External Approach (ICD-10-PCS; 2017-06-10)
PROC: 0JB80ZZ Excision of Abdomen Subcutaneous Tissue and Fascia, Open Approach (ICD-10-PCS; 2017-06-10)
DX: C18.7 Malignant neoplasm of sigmoid colon (principal); C78.7 Secondary malignant neoplasm of liver and intrahepatic bile duct; A41.9 Sepsis, unspecified organism; K56.691 Other complete intestinal obstruction; E46 Unspecified protein-calorie malnutrition; E22.2 Syndrome of inappropriate secretion of antidiuretic hormone; J18.9 Pneumonia, unspecified organism; J91.8 Pleural effusion in other conditions classified elsewhere; D68.9 Coagulation defect, unspecified; E87.3 Alkalosis; I31.3 Pericardial effusion (noninflammatory); I82.611 Acute embolism and thrombosis of superficial veins of right upper extremity; N17.9 Acute kidney failure, unspecified; K94.02 Colostomy infection; D69.6 Thrombocytopenia, unspecified; E11.65 Type 2 diabetes mellitus with hyperglycemia; D63.0 Anemia in neoplastic disease; K64.4 Residual hemorrhoidal skin tags; K64.8 Other hemorrhoids; E77.8 Other disorders of glycoprotein metabolism; E78.5 Hyperlipidemia, unspecified; E83.39 Other disorders of phosphorus metabolism; E83.42 Hypomagnesemia; E83.51 Hypocalcemia; E86.0 Dehydration; E87.6 Hypokalemia; E87.70 Fluid overload, unspecified; G89.18 Other acute postprocedural pain; I11.9 Hypertensive heart disease without heart failure; I51.7 Cardiomegaly; K27.9 Peptic ulcer, site unspecified, unspecified as acute or chronic, without hemorrhage or perforation; K44.9 Diaphragmatic hernia without obstruction or gangrene; K80.20 Calculus of gallbladder without cholecystitis without obstruction; N28.1 Cyst of kidney, acquired; Z51.5 Encounter for palliative care; Z66 Do not resuscitate; Z79.4 Long term (current) use of insulin; Z87.01 Personal history of pneumonia (recurrent); Z90.710 Acquired absence of both cervix and uterus